=== PATIENT | female | born 1950 | race Caucasian/White ===

== ENCOUNTER 2016-11-01 08:57 | Inpatient (IN) | payer MEDICARE, OTHER ==
[~2016-11-01] VITALS: Ht 170.2 cm; Wt 82.2 kg
[~2016-11-01 08:57] MED LIST: AMLO5TAB2 PO; CELE400C PO; CEPH500C PO; DICY10CA12 PO; DICY10CA26 PO; DULO30CA3 PO; ERGO400C PO; EST1.25T PO; ESTR0.5T PO; EZET10TA23 PO; FENO145T20 PO; GABA-486 PO; HYDR-2890 PO; HYDR1CAP2 PO; HYDR25TA4 PO; HYDR50TA3 PO; HYOS0.1217 PO; HYOS0.3710 PO; MELO-195 PO; METR500T PO; NAPR-243 PO; NEBI5TAB8 PO; NITR-65 PO; NITR100C PO; NITR50CA4 PO; ONDA-42 SL; ONDAN4ODT PO; ORPH100T PO; POTA-51 PO; POTA10CA43 PO; POTA75TA PO; POTASSIUM; PRD20T PO; PRM25T PO; ROPI0.5T2 PO; SIMV20TA3 PO; SULF-222 PO; SULF1TAB38 PO
--- OUTSIDE RECORDS SUMMARY | 2016-11-01 09:02 | XMS REPORT | Continuity of Care Document ---
Author Author [facility] Organization [facility] Address Unknown Phone Unavailable Allergies Active Description Code Type Severity Reaction Onset Reported/Identified Relationship to Patient Clinical Status Yes codeine [id number] Drug Allergy Unknown N/A 10/27/2005 Yes Sulfa (Sulfonamide Antibiotics) [id number] Drug Allergy Unknown NAUSEA BOWEL GA 01/11/2014 Yes No Known Drug Allergies [id number] Drug Allergy Unknown N/ A 03/20/2015 Medications Problems Date Dx Coded Attending Type Code Diagnosis Diagnosed By 09/09/2014 ADITYA PERLA MD Ot 721.3 09/09/2014 ADITYA PERLA MD Ot 729.1 09/09/2014 ADITYA PERLA MD Ot V58.69 10/03/2014 LINDA PRICE MD Ot 401.9 10/03/2014 LINDA PRICE MD Ot 562.11 10/03/2014 LINDA PRICE MD Ot 789.00 10/03/2014 LINDA PRICE MD Ot V58.69 10/23/2014 LEANN SANTIAGO, SHYAM Ortiz Ot 401.9 10/23/2014 LEANN SANTIAGO, SHYAM Ortiz Ot 787.91 10/23/2014 LEANN SANTIAGO, SHYAM Ortiz Ot 789.00 10/23/2014 LEANN SANTIAGO, SHYAM Ortiz Ot 790.6 10/28/2014 LEANN SANTIAGO, SHYAM Ortiz Ot 787.91 10/28/2014 LEANN SANTIAGO, SHYAM Ortiz Ot 789.00 11/04/2014 ROHAN JOYA MD Ot 401.9 11/04/2014 ROHAN JOYA MD Ot 723.0 11/04/2014 ROHAN JOYA MD Ot 723.1 11/04/2014 ROHAN JOYA MD Ot 785.1 11/04/2014 ROHAN JOYA MD Ot 786.09 11/04/2014 ROHAN JOYA MD Ot 786.50 11/07/2014 TOAN SANTIAGO, ROHAN Yao Ot 401.9 11/07/2014 TOAN SANTIAGO, ROHAN Yao Ot 723.0 11/07/2014 TOAN SANTIAGO, ROHAN Yao Ot 785.1 11/07/2014 TOAN SANTIAGO, ROHAN Yao Ot 786.09 11/07/2014 TOAN SANTIAGO, ROHAN Yao Ot 786.50 11/22/2014 Ot 401.9 11/22/2014 Ot 821.01 11/22/2014 Ot 847.0 11/22/2014 Ot 924.8 11/22/2014 Ot 959.6 11/22/2014 Ot E000.8 11/22/2014 Ot E849.0 11/22/2014 Ot E888.9 11/22/2014 Ot V58.69 01/10/2015 LEANN SANTIAGO, SHYAM Ortiz Ot 787.91 01/10/2015 LEANN SANTIAGO, SHYAM Ortiz Ot 789.00 03/21/2015 LEANN SANTIAGO, SHYAM Ortiz Ot 272.4 03/21/2015 LEANN SANTIAGO, SHYAM Ortiz Ot 401.9 03/21/2015 LEANN SANTIAGO, SHYAM Ortiz Ot 458.9 03/21/2015 LEANN SANTIAGO, SHYAM Ortiz Ot 584.9 03/21/2015 LEANN SANTIAGO, SHYAM Ortiz Ot V43.64 06/23/2016 JD SCOTT Ot Z12.31 ENCNTR SCREEN MAMMOGRAM FOR MALIGNANT NE 06/24/2016 JD SCOTT FILM INSPECTOR Ot Z12.31 ENCNTR SCREEN MAMMOGRAM FOR MALIGNANT NE 06/29/2016 JD SCOTT FILM INSPECTOR Ot Z12.31 ENCNTR SCREEN MAMMOGRAM FOR MALIGNANT NE 07/08/2016 JD SCOTT FILM INSPECTOR Ot Z12.31 ENCNTR SCREEN MAMMOGRAM FOR MALIGNANT NE Procedures Results Encounters ACCT No. Visit Date/Time Discharge Status Pt. Type Provider Facility Loc./Unit Complaint [id number] 03/20/2015 14:44:00 2014 16:32:00 DIS Inpatient SHYAM NORIEGA MD [facility] 4TH [id number] 11/05/2014 10:34:00 2014 23:59:59 CLS Outpatient ROHAN JOYA MD [facility] [id number] 11/01/2014 14:10:00 2014 23:59:59 CLS Outpatient TOAN SANTIAGO, ROHAN Yao [facility] CARD [id number] 10/03/2014 10:12:00 2014 12:55:00 DIS Emergency ALBERT SANTIAGO, LINDA Finley [facility] ER [id number] 09/26/2014 12:48:00 2014 23:59:59 CLS Outpatient SHYAM NORIEGA MD [facility] RAD [id number] 09/25/2014 12:37:00 2014 23:59:59 CLS Outpatient SHYAM NORIEGA MD [facility] LAB [id number] 09/09/2014 13:09:00 2013 14:17:00 DIS Outpatient MINDA SANTIAGO, ADITYA Yao [facility] CARD [id number] 07/26/2014 08:23:00 2013 09:27:00 DIS Outpatient [id number] 06/14/2014 09:30:00 2013 23:59:59 CLS Outpatient [id number] 05/03/2014 07:30:00 2013 08:17:00 DIS Outpatient [id number] 03/18/2014 12:52:00 2013 14:24:00 DIS Outpatient [id number] 03/07/2014 18:36:00 2013 21:07:00 DIS Emergency [id number] 01/11/2014 11:23:00 2013 23:59:59 CLS Outpatient [id number] 12/17/2013 10:41:00 2013 11:12:00 DIS Outpatient [id number] 01/07/2014 12:26:00 2013 23:59:59 CLS Outpatient [id number] 12/24/2013 12:08:00 2013 23:59:59 CLS Outpatient [id number] 11/16/2013 08:13:00 2013 09:04:00 DIS Outpatient [id number] 11/01/2013 19:13:00 2013 21:19:00 DIS Emergency [id number] 07/20/2013 08:47:00 2012 23:59:59 CLS Outpatient [id number] 06/11/2013 08:28:00 2012 23:59:59 CLS Outpatient [id number] 06/11/2013 08:21:00 2012 23:59:59 CLS Outpatient [id number] 06/23/2016 08:40:00 ACT Outpatient JD SCOTT [facility] RAD SCREENING [id number] 01/03/2015 20:45:00 Document Registration
[2016-11-01 09:51] LABS: BASOPHILS % (AUTO) 1 % (0-10); EOSINOPHILS # (AUTO) 0.2 10^3/uL (0.0-0.3); EOSINOPHILS % (AUTO) 4 % (0-10); LYMPHOCYTES # (AUTO) 0.7 X 10^3 (1.0-4.0); LYMPHOCYTES % (AUTO) 18 % (12-44); MEAN CORPUSCULAR HEMOGLOBIN 33 PG (25-34); MEAN CORPUSCULAR HGB CONC 33 G/DL (32-36); MEAN CORPUSCULAR VOLUME 100 FL (80-99); MEAN PLATELET VOLUME 9.6 FL (7.4-10.4); MONOCYTES # (AUTO) 0.8 X 10^3 (0.0-1.0); MONOCYTES % (AUTO) 21 % (0-12); NEUTROPHILS # (AUTO) 2.1 X 10^3 (1.8-7.8); NEUTROPHILS % (AUTO) 56 % (42-75); PLATELET COUNT 350 10^3/uL (130-400); RED BLOOD COUNT 3.83 10^6/uL (4.35-5.85); RED CELL DISTRIBUTION WIDTH 13.7 % (10.0-14.5); WHITE BLOOD COUNT 3.8 10^3/uL (4.3-11.0)
[2016-11-01 10:12] LABS: ALANINE AMINOTRANSFERASE 24 U/L (0-55); ALBUMIN 3.8 G/DL (3.2-4.5); ANION GAP 10 MMOL/L (5-14); ASPARTATE AMINO TRANSFERASE 37 U/L (5-34); BILIRUBIN,TOTAL 0.5 MG/DL (0.1-1.0); BLOOD UREA NITROGEN 15 MG/DL (7-18); BUN/CREATININE RATIO 18; CALCIUM 9.4 MG/DL (8.5-10.1); CARBON DIOXIDE 25 MMOL/L (21-32); CHLORIDE 104 MMOL/L (98-107); CREATININE SERUM 0.85 MG/DL (0.60-1.30); GFR ESTIMATED > 60; GLUCOSE 94 MG/DL (70-105); POTASSIUM 4.1 MMOL/L (3.6-5.0); SODIUM 139 MMOL/L (135-145)
[2016-11-01 10:35] LABS: BAND NEUTROPHILS 2 %; BASOPHILS % (MANUAL) 1 %; EOSINOPHILS % (MANUAL) 5 %; LYMPHOCYTES % (MANUAL) 16 %; NEUTROPHILS % (MANUAL) 61 %
--- NOTE | 2016-11-01 10:41 | Diagnostic Imaging Report ---
PA and lateral views of the chest. INDICATION: Shortness of breath. COMPARISON: 11/22/2014. FINDINGS: There are bilateral central predominantly interstitial infiltrates worse on the left side. The heart size is normal. No effusion or pneumothorax. The mediastinum and rowdy appear unremarkable. IMPRESSION: Bilateral interstitial infiltrates may relate to atypical or viral pneumonia. Correlate clinically. Dictated by: Dictated on workstation # [id number]
[2016-11-01] MEDS ORDERED: LEVOFLOXACIN 750 MG/150 ML IV 150 ML IV ONE (11:15)
--- NOTE | 2016-11-01 11:19 | ED General ---
General Chief Complaint: Respiratory Problems Stated Complaint: LETHARGIC, TIERS EASILY, SOA Nursing Triage Note: PT C/O LETHARGY AND SOA SINCE TUESDAY. PT DENIES FEVER OR COUGH. Nursing Sepsis Screen: No Definite Risk Source of Information: Patient Exam Limitations: No Limitations History of Present Illness Time Seen by Provider: 09:03 Initial Comments This 66-year-old woman presents to the emergency room with complaints of dyspnea on exertion and fatigue. She was recently treated for cough with Cefdinir by Dr. Otero. She has also been recently started on Macrobid by Dr. Crisostomo's office. The Cefdinir course was completed on October 29 and she has been feeling worse since then. She is noted to be hypoxic with oxygen saturations in the upper 80s upon arrival. Patient is immunocompromised on methotrexate therapy for rheumatoid arthritis. She has had night sweats and chills in recent days but no overt fever. Allergies and Home Medications Allergies Coded Allergies: No Known Drug Allergies (Unverified , 03/20/15) Home Medications Amlodipine Besylate 5 Mg Tablet 5 MG PO DAILY (Reported) Cholecalciferol (Vitamin D3) 2,000 Unit Capsule 2,000 UNIT PO HS (Reported) Diclofenac Sodium 75 Mg Tablet.dr 75 MG PO BID (Reported) Duloxetine Hcl 30 Mg Cap 30 MG PO DAILY (Reported) Estradiol 0.5 Mg Tablet 0.5 MG PO DAILY (Reported) Ezetimibe 10 Mg Tablet 10 MG PO DAILY (Reported) Fenofibrate Nanocrystallized 145 Mg Tablet 145 MG PO DAILY (Reported) Folic Acid 1 Mg Tablet 1 MG PO DAILY (Reported) Gabapentin 100 Mg Capsule 200 MG PO DAILY (Reported) TAKES 2 (100MG) CAPSULES Gabapentin 100 Mg Capsule 300 MG PO HS (Reported) TAKES 3 (100MG) CAPSULES Hydrocodone Bit/Acetaminophen 1 Each Tablet 1 TAB PO BID (Reported) Hydrocodone/Acetaminophen 1 Each Tablet 1 TAB PO Q6H PRN PRN MODERATE PAIN ( Reported) Hyoscyamine Sulfate 0.375 Mg Tab.er.12h 0.375 MG PO BID (Reported) Infliximab 100 Mg Soln 300 MG IV EVERY 8 WEEKS (Reported) Methotrexate Sodium 2.5 Mg Tablet 15 MG PO We (Reported) TAKES 6 (2.5MG) TABLETS Nitrofurantoin Macrocrystal 50 Mg Capsule 50 MG PO HS (Reported) Olmesartan Medoxomil 40 Mg Tablet 40 MG PO DAILY (Reported) Omeprazole 20 Mg Capsule.dr 20 MG PO BID (Reported) Ropinirole Hcl 0.5 Mg Tablet 0.5 MG PO HS (Reported) Constitutional: see HPI EENTM: no symptoms reported Respiratory: see HPI Cardiovascular: no symptoms reported Gastrointestinal: no symptoms reported Genitourinary: no symptoms reported Musculoskeletal: no symptoms reported Skin: no symptoms reported Psychiatric/Neurological: No Symptoms Reported Hematologic/Lymphatic: No Symptoms Reported Immunological/Allergic: see HPI Past Ezdtmrd-Otgffe-Xlwszx Hx Patient Social History Alcohol Use: Occasionally Uses Recreational Drug Use: No Smoking Status: Never a Smoker 2nd Hand Smoke Exposure: No Recent Foreign Travel: No Contact w/Someone Who Travel: No Recent Infectious Disease Expo: No Recent Hopitalizations: No Immunizations Up To Date Tetanus Booster (TDap): Unknown Date of Pneumonia Vaccine: Nov 02, 2012 Date of Influenza Vaccine: Jun 19, 2014 Seasonal Allergies Seasonal Allergies: No Surgeries HX Surgeries: Yes (R TOTAL HIP L AND R SURGERY ON KNEES) Surgeries: Breast, Gallbladder, Hysterectomy, Joint Replacement, Orthopedic, Renal Respiratory Hx Respiratory Disorders: No Cardiovascular Hx Cardiac Disorders: Yes Cardiac Disorders: High Cholesterol, Hypertension Neurological Hx Neurological Disorders: No 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 System Hx 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 Disorders: No Sexually Transmitted Disease: No HIV/AIDS: No Female 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 Disorders: 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 Genitourinary Hx Genitourinary Disorders: Yes Genitourinary Disorders: Kidney Stones, UTI-Chronic Gastrointestinal Hx Gastrointestinal Disorders: Yes Gastrointestinal Disorders: Diverticulosis Musculoskeletal Hx Musculoskeletal Disorders: Yes (march 03 brucitis sack removed from left knee, right femur repair) Musculoskeletal Disorders: Arthritis, Rheumatoid Arthritis Endocrine Hx Endocrine Disorders: No HEENT HX ENT Disorders: No Loss of Vision: Denies Hearing Impairment: Denies Cancer Hx Cancer: No Psychosocial Hx Psychiatric Problems: No Integumentary HX Skin/Integumentary Disorder: No Blood Transfusions Hx Blood Disorders: No Adverse Reaction to a Blood Tr: No Family Medical History Family Medial History: Alzheimer's disease G8 BROTHER G8 SISTER Arthritis G8 BROTHER Cataracts G8 SISTER Dementia G8 SISTER Fibrocystic disease of breast G8 SISTER Hypertension 19 FATHER 19 MOTHER G8 BROTHER G8 BROTHER G8 SISTER G8 SISTER Kidney disease G8 BROTHER No Family History of: AIDS Abdominal aortic aneurysm [place]'s disease Alcoholism Aphasia Asthma Cancer of mouth Cardiovascular disease Colon cancer Completed stroke Congenital disease Congenital heart disease Coronary thrombosis Cystic fibrosis Diabetes mellitus Drug abuse Dysphasia Gastroenteritis Glaucoma Headache disorder Hypercholesterolemia Infertility Myocardial infarction Neoplasm Not obtainable due to adoption Osteoporosis Parkinson's disease Prostate cancer Psychosocial problem Respiratory disorder Seizure disorder Severe allergy Thyroid disease Tuberculosis Visual disorder Physical Exam Vital Signs Vital Sign - Last 12Hours 11/01/16 11/01/16 09:44 11:44 Temp 99.7 Pulse 72 Resp 20 B/P 127/69 Pulse Ox 89 O2 Delivery Room Air O2 Flow Rate 2 Capillary Refill : Less Than 3 Seconds General Appearance: No Apparent Distress WD/WN HEENT: PERRL/EOMI Normal ENT Inspection Neck: Normal Inspection Respiratory: No Accessory Muscle Use No Respiratory Distress Crackles ( bilateral, left greater than right) Cardiovascular: Regular Rate, Rhythm No Edema No Murmur Gastrointestinal: Normal Bowel Sounds Non Tender Soft Extremity: Normal Inspection No Pedal Edema Neurologic/Psychiatric: Alert Oriented x3 No Motor/Sensory Deficits Normal Mood/Affect remote sensing technician II-XII Norm as Tested Skin: Normal Color Warm/Dry Progress/Results/Core Measures Results/Orders Lab Results Laboratory Tests Test 11/01/16 09:40 11/01/16 11:19 Range/Units Alanine Aminotransferase (ALT/SGPT) 24 0-55 U/L Albumin 3.8 3.2-4.5 G/DL Alkaline Phosphatase 62 40-136 U/L Anion Gap 10 5-14 MMOL/L Aspartate Amino Transf (AST/SGOT) 37 H 5-34 U/L BUN/Creatinine Ratio 18 Band Neutrophils 2 % Basophils # (Auto) 0.0 0.0-0.1 10^3/uL Basophils % (Manual) 1 % Basophils (%) (Auto) 1 0-10 % Blood Urea Nitrogen 15 7-18 MG/DL Calcium Level 9.4 8.5-10.1 MG/DL Carbon Dioxide Level 25 21-32 MMOL/L Chloride Level 104 98-107 MMOL/L Creatinine 0.85 0.60-1.30 MG/DL Eosinophils # (Auto) 0.2 0.0-0.3 10^3/uL Eosinophils % (Manual) 5 % Eosinophils (%) (Auto) 4 0-10 % Estimat Glomerular Filtration Rate > 60 Glucose Level 94 70-105 MG/DL Hematocrit 38 35-52 % Hemoglobin 12.6 11.5-16.0 G/DL Lymphocytes # (Auto) 0.7 L 1.0-4.0 X 10^3 Lymphocytes % (Manual) 16 % Lymphocytes (%) (Auto) 18 12-44 % Mean Corpuscular Hemoglobin 33 25-34 PG Mean Corpuscular Hemoglobin Concent 33 32-36 G/DL Mean Corpuscular Volume 100 H 80-99 FL Mean Platelet Volume 9.6 7.4-10.4 FL Monocytes # (Auto) 0.8 0.0-1.0 X 10^3 Monocytes % (Manual) 15 % Monocytes (%) (Auto) 21 H 0-12 % Neutrophils # (Auto) 2.1 1.8-7.8 X 10^3 Neutrophils % (Manual) 61 % Neutrophils (%) (Auto) 56 42-75 % Platelet Count 350 130-400 10^3/uL Potassium Level 4.1 3.6-5.0 MMOL/L Red Blood Count 3.83 L 4.35-5.85 10^6/uL Red Cell Distribution Width 13.7 10.0-14.5 % Sodium Level 139 135-145 MMOL/L Total Bilirubin 0.5 0.1-1.0 MG/DL Total Protein 7.0 6.4-8.2 G/DL Toxic Granulation 1+ White Blood Count 3.8 L 4.3-11.0 10^3/uL Lactic Acid Level 0.9 0.5-2.0 MMOL/L Micro Results Microbiology 11/01/16 Influenza Types A,B Antigen (JOANN) - Final, Complete My Orders Orders-YANA COSME MD Cbc With Automated Diff (11/01/16 09:03) Comprehensive Metabolic Panel (11/01/16 09:03) Ua Culture If Indicated (11/01/16 09:03) Saline Lock/Iv-Start (11/01/16 09:03) Chest Pa/Lat (2 View) (11/01/16 09:03) Manual Differential (11/01/16 09:40) Influenza A And B Antigens (11/01/16 10:51) Blood Culture (11/01/16 11:04) Lactic Acid Analyzer (11/01/16 11:04) Levofloxacin 750 Mg/150 Ml Iv (Levaquin (11/01/16 11:15) Vital Signs/I&O Vital Sign - Last 12Hours 11/01/16 11/01/16 11/01/16 11/01/16 16:00 18:45 20:00 21:00 Temp 97.0 98.4 Pulse 75 92 Resp 16 20 B/P 125/58 140/65 Pulse Ox 93 86 93 93 O2 Delivery Nasal Cannula Nasal Cannula Nasal Cannula O2 Flow Rate 2.00 2.00 2.00 2.00 11/02/16 00:00 Temp 98.2 Pulse 96 Resp 20 B/P 129/69 Pulse Ox 91 O2 Delivery Nasal Cannula O2 Flow Rate 2.00 Blood Pressure Mean: 88 Progress Note : Time: 11:20 Progress Note Patient was found to have a bilateral pneumonia on chest x-ray. Given her hypoxia and immunocompromise status, admission was felt appropriate. This was discussed with Dr. Crisostomo who agrees. Because she has failed outpatient therapy on a cephalosporin and is immunocompromised, broad spectrum coverage for healthcare associated pneumonia was felt necessary. Patient did not quite meet criteria for sepsis. Levaquin was initiated in the emergency room after blood cultures were drawn. Diagnostic Imaging Diagonstic Imaging: Xray Plain Films/CT/US/NM/MRI: chest Comments Chest x-ray viewed by me and report reviewed. See report below: NAME: SENTHIL FRANCISCO I [facility] REC#: [id number] PT STATUS: REG ER : 1950 PHYSICIAN: YANA COSME MD ADMIT DATE: 11/01/16/ER Signed Date of Exam: 11/01/16 CHEST PA/LAT (2 VIEW) PA and lateral views of the chest. INDICATION: Shortness of breath. COMPARISON: 11/22/2014. FINDINGS: There are bilateral central predominantly interstitial infiltrates worse on the left side. The heart size is normal. No effusion or pneumothorax. The mediastinum and rowdy appear unremarkable. IMPRESSION: Bilateral interstitial infiltrates may relate to atypical or viral pneumonia. Correlate clinically. Dictated by: Dictated on workstation # [id number] Dict: 11/01/16 1038 Trans: 11/01/16 1111 LUCIA [id number] Interpreted by: HORTENCIA GUERRERO MD Electronically signed by:HROTENCIA GUERRERO MD 11/01/16 1113 Departure Impression Impression: Primary Impression: Pneumonia of both lower lobes Qualified Code: J18.9 - Pneumonia, unspecified organism Additional Impressions: Hypoxia Dyspnea on exertion Immunocompromised Disposition: ADMITTED INPATIENT Condition: Improved Decision to Admit Reason: Admit from ER (General) Decision to Admit/Date: Nov 01, 2016 Time/Decision to Admit Time: 11:00 Departure-Patient Inst. Referrals: SHYAM CRISOSTOMO MD (PCP/Family) Primary Care Physician YANA COSME MD Nov 01, 2016 11:19
[2016-11-01] MEDS ORDERED: ACETAMINOPHEN 500 MG TAB (TYLENOL) PO PRN (12:15)
[2016-11-01] MEDS ORDERED: VANCOMYCIN 1500 MG/NS 500 ML IVPB IV NR ×2 (13:00)
[2016-11-01] MEDS: CEFEPIME 2 GM/NS 50 ML IVPB IV SCH ×4 (13:05→23:40)
[2016-11-01] MEDS ORDERED: FLUT16SP22 NS (13:10)
[2016-11-01] MEDS ORDERED: FOLI1TAB24 PO (13:10)
[2016-11-01] MEDS ORDERED: OMEP20CA12 PO (13:10)
[2016-11-01] MEDS ORDERED: AMLO5TAB4 PO (13:10)
[2016-11-01] MEDS ORDERED: OLME40TA16 PO (13:10)
[2016-11-01] MEDS ORDERED: DICL75TA2 PO (13:20)
[2016-11-01] MEDS ORDERED: HYOS0.3710 PO (13:20)
[2016-11-01] MEDS ORDERED: METH2.5T PO (13:20)
[2016-11-01] MEDS ORDERED: CHOL20002 PO (13:20)
[2016-11-01] MEDS ORDERED: INFL100V IV (13:20)
[2016-11-01] MEDS ORDERED: HYDR-3820 PO (13:26)
[2016-11-01 16:00] VITALS: BP 125/58
--- NOTE | 2016-11-01 16:17 | History & Physicial ---
History of Present Illness History of Present Illness Reason for visit/HPI PT IS A 66 Y/O FEMALE WHO IS KNOWN TO ME FROM CLINIC. SHE PRESENTED TO THE HOSPITAL WITH WORSENING DYSPNEA - SHE HAD BEEN SEEN AT THE OFFICE, PRESCRIBED ANTIBIOTICS, AND INITIALLY IMPROVED. SHE THEN STARTED TO FEEL POORLY AGAIN OVER THE PAST FEW DAYS. Date of Admission Nov 01, 2016 at 11:08 I consulted on this patient on 11/01/16 16:17 Attending Physician Shyam Crisostomo MD Admitting Physician Shyam Crisostomo MD Consult Allergies and Home Medications Allergies Coded Allergies: No Known Drug Allergies (Unverified , 03/20/15) Home Medications Amlodipine Besylate 5 Mg Tablet 5 MG PO DAILY (Reported) Cholecalciferol (Vitamin D3) 2,000 Unit Capsule 2,000 UNIT PO HS (Reported) Diclofenac Sodium 75 Mg Tablet.dr 75 MG PO BID (Reported) Duloxetine Hcl 30 Mg Cap 30 MG PO DAILY (Reported) Estradiol 0.5 Mg Tablet 0.5 MG PO DAILY (Reported) Ezetimibe 10 Mg Tablet 10 MG PO DAILY (Reported) Fenofibrate Nanocrystallized 145 Mg Tablet 145 MG PO DAILY (Reported) Folic Acid 1 Mg Tablet 1 MG PO DAILY (Reported) Gabapentin 100 Mg Capsule 200 MG PO DAILY (Reported) TAKES 2 (100MG) CAPSULES Gabapentin 100 Mg Capsule 300 MG PO HS (Reported) TAKES 3 (100MG) CAPSULES Hydrocodone Bit/Acetaminophen 1 Each Tablet 1 TAB PO BID (Reported) Hydrocodone/Acetaminophen 1 Each Tablet 1 TAB PO Q6H PRN PRN MODERATE PAIN ( Reported) Hyoscyamine Sulfate 0.375 Mg Tab.er.12h 0.375 MG PO BID (Reported) Infliximab 100 Mg Soln 300 MG IV EVERY 8 WEEKS (Reported) Methotrexate Sodium 2.5 Mg Tablet 15 MG PO We (Reported) TAKES 6 (2.5MG) TABLETS Nitrofurantoin Macrocrystal 50 Mg Capsule 50 MG PO HS (Reported) Olmesartan Medoxomil 40 Mg Tablet 40 MG PO DAILY (Reported) Omeprazole 20 Mg Capsule.dr 20 MG PO BID (Reported) Ropinirole Hcl 0.5 Mg Tablet 0.5 MG PO HS (Reported) Past Cnmcliu-Dixjso-Rsqomu Hx Patient Social History Marrital Status: Living Status: LIVES AT HOME WITH SPOUSE 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) Alcohol Use: Occasionally Uses Recreational Drug Use: No Smoking Status: Never a Smoker 2nd Hand Smoke Exposure: No Physical Abuse Screen: No Sexual Abuse: No Recent Foreign Travel: No Contact w/other who traveled: No Recent Hopitalizations: No Recent Infectious Disease Expo: No Immunizations Up To Date Tetanus Booster (TDap): Unknown Date of Pneumonia Vaccine: Nov 02, 2012 Date of Influenza Vaccine: Jun 19, 2016 Seasonal Allergies Seasonal Allergies: No Surgeries HX Surgeries: Yes (R TOTAL HIP L AND R SURGERY ON KNEES) Surgeries: Breast, Gallbladder, Hysterectomy, Joint Replacement, Orthopedic, Renal Respiratory Hx Respiratory Disorders: No Cardiovascular Hx Cardiovascular Disorders: Yes Cardiac Disorders: High Cholesterol, Hypertension Neurological Hx Neurological Disorders: No 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 System Hx 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 Disorders: No Sexually Transmitted Disease: No HIV/AIDS: No Female 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 Disorders: Denies Genitourinary Hx Genitourinary Disorders: Yes Genitourinary Disorders: Kidney Stones, UTI-Chronic Gastrointestinal Hx Gastrointestinal Disorders: Yes Gastrointestinal Disorders: Diverticulosis Musculoskeletal Hx Musculoskeletal Disorders: Yes (march 03 brucitis sack removed from left knee, right femur repair) Musculoskeletal Disorders: Arthritis, Rheumatoid Arthritis Endocrine Hx Endocrine Disorders: No HEENT HX ENT Disorders: No Loss of Vision: Denies Hearing Impairment: Denies Cancer Hx Cancer: No Psychosocial Hx Psychiatric Problems: No Integumentary HX Skin/Integumentary Disorder: No Blood Transfusions Hx Blood Disorders: No Adverse Reaction to a Blood Tr: No Reviewed Nursing Assessment Reviewed/Agree w Nursing PMH: Yes Family Medical History Significant Family History: Heart Disease, Other Conditions/Hx (DEMENTIA) Family Hx: Alzheimer's disease G8 BROTHER G8 SISTER Arthritis G8 BROTHER Cataracts G8 SISTER Dementia G8 SISTER Fibrocystic disease of breast G8 SISTER Hypertension 19 FATHER 19 MOTHER G8 BROTHER G8 BROTHER G8 SISTER G8 SISTER Kidney disease G8 BROTHER No Family History of: AIDS Abdominal aortic aneurysm [place]'s disease Alcoholism Aphasia Asthma Cancer of mouth Cardiovascular disease Colon cancer Completed stroke Congenital disease Congenital heart disease Coronary thrombosis Cystic fibrosis Diabetes mellitus Drug abuse Dysphasia Gastroenteritis Glaucoma Headache disorder Hypercholesterolemia Infertility Myocardial infarction Neoplasm Not obtainable due to adoption Osteoporosis Parkinson's disease Prostate cancer Psychosocial problem Respiratory disorder Seizure disorder Severe allergy Thyroid disease Tuberculosis Visual disorder Constitutional: No fever, malaise weakness EENTM: No hoarseness, No mouth pain, No throat pain Respiratory: cough dyspnea on exertion short of breath Cardiovascular: no symptoms reported Gastrointestinal: No abdominal pain, No constipation, No diarrhea Genitourinary: no symptoms reported Musculoskeletal: joint pain Skin: No dryness, No lesions Psychiatric/Neurological: Denies Anxiety, Denies Depressed All Other Systems Reviewed Negative Unless Noted: Yes Physical Exam Vital Signs Vital Sign - Last 12Hours 11/01/16 11/01/16 09:44 11:44 Temp 99.7 Pulse 72 Resp 20 B/P 127/69 Pulse Ox 89 O2 Delivery Room Air O2 Flow Rate 2 Capillary Refill : Less Than 3 Seconds General Appearance: No Apparent Distress WD/WN Eyes: Bilateral Eye EOMI, Bilateral Eye Normal Inspection, Bilateral Eye PERRL HEENT: PERRL/EOMI Pharynx Normal Neck: Full Range of Motion Supple Respiratory: Chest Non Tender Crackles (MID LUNG TO BASES BILATERALLY) Decreased Breath Sounds Cardiovascular: Regular Rate, Rhythm Gastrointestinal: Normal Bowel Sounds No Organomegaly No Pulsatile Mass Non Tender Soft Rectal: Deferred Back: Normal Inspection Extremity: Normal Capillary Refill No Pedal Edema Neurologic/Psychiatric: Alert Oriented x3 No Motor/Sensory Deficits Normal Mood/Affect Skin: Normal Color Warm/Dry Lymphatic: No Adenopathy Assessment/Plan Assessment and Plan PNEUMONIA LEUKOPENIA COUGH WEAKNESS PNEUMONIA - STARTED ON PNEUMONIA PROTOCOL, CONTINUE WITH TREATMENT - MONITOR SYMPTOMS, AGGRESSIVE PULMONARY TOILET LEUKOPENIA - MONITOR CBC COUGH - COUGH SUPPRESSANTS WEAKNESS - ENCOURAGE AMBULATION IN [place] Admission Diagnosis PNEUMONIA LEUKOPENIA COUGH WEAKNESS Clinical Quality Measures DVT/VTE Risk/Contraindication: Risk Factor Score Per Nursin RFS Level Per Nursing on Admit: 2=Moderate SHYAM CRISOSTOMO MD Nov 01, 2016 16:17
[2016-11-01] MEDS ORDERED: HYDROcodone/APAP 10 MG/325 MG (LORTAB) TAB PO PRN (16:30)
[2016-11-01] MEDS: HYDROcodone/APAP 10 MG/325 MG (LORTAB) TAB PO SCH (17:30)
[2016-11-01] MEDS: methylPREDNISolone 40 MG/ML (Solu-MEDROL) VIAL IV SCH ×2 (17:43→23:40)
[2016-11-01] MEDS: HYOSCYAMINE 0.375 MG (LEVBID) TAB PO SCH (17:43)
[2016-11-01 20:00] VITALS: BP 140/65
[2016-11-01] MEDS: rOPINIRole 0.25 MG (REQUIP) TAB PO SCH (20:36)
[2016-11-01] MEDS: PANTOPRAZOLE 20 MG TABLET (PROTONIX) PO SCH (20:37)
[2016-11-01] MEDS: GABAPENTIN 100 MG (NEURONTIN) CAP PO SCH (20:37)
[2016-11-01] MEDS: VITAMIN D3 1,000 UNITS (CHOLECALCIFEROL) TABLET PO SCH (20:37)
[2016-11-01] MEDS ORDERED: OMEPRAZOLE 20 MG (PriLOSEC) CAP NON-FORMULARY PO SCH (21:00)
[2016-11-01] MEDS ORDERED: NON-FORMULARY MEDICATION 1 EA EA (Diclofenac Sodium 75 MG) PO SCH (21:00)
[2016-11-01] MEDS ORDERED: NON-FORMULARY MEDICATION 1 EA EA (Cholecalciferol (Vitamin D3) (Vitamin D-3) 2,000 UNIT) PO SCH (21:00)
[2016-11-02] VITALS: BP 129/69
[2016-11-02] MEDS: VANCOMYCIN 1250 MG/NS 250 ML IVPB IV SCH ×4 (00:30→13:24)
[2016-11-02 04:00] VITALS: BP 129/80
[2016-11-02 04:53] LABS: MEAN PLATELET VOLUME 9.6 FL (7.4-10.4); RED BLOOD COUNT 3.8 10^6/uL (4.35-5.85); RED CELL DISTRIBUTION WIDTH 13.6 % (10.0-14.5); WHITE BLOOD COUNT 2.6 10^3/uL (4.3-11.0)
[2016-11-02 05:11] LABS: ALANINE AMINOTRANSFERASE 22 U/L (0-55); ALBUMIN 3.8 G/DL (3.2-4.5); ANION GAP 12 MMOL/L (5-14); ASPARTATE AMINO TRANSFERASE 24 U/L (5-34); BILIRUBIN,TOTAL 0.5 MG/DL (0.1-1.0); BLOOD UREA NITROGEN 15 MG/DL (7-18); BUN/CREATININE RATIO 20; CALCIUM 9.5 MG/DL (8.5-10.1); CARBON DIOXIDE 21 MMOL/L (21-32); CHLORIDE 103 MMOL/L (98-107); CREATININE SERUM 0.76 MG/DL (0.60-1.30); GFR ESTIMATED > 60; GLUCOSE 147 MG/DL (70-105); POTASSIUM 4.1 MMOL/L (3.6-5.0); SODIUM 136 MMOL/L (135-145)
[2016-11-02] MEDS: ETODOLAC 300 MG (LODINE) CAP PO SCH ×2 (06:04→17:19)
[2016-11-02] MEDS: methylPREDNISolone 40 MG/ML (Solu-MEDROL) VIAL IV SCH ×2 (06:04→12:50)
[2016-11-02] MEDS: HYOSCYAMINE 0.375 MG (LEVBID) TAB PO SCH ×2 (06:04→17:19)
[2016-11-02] MEDS: HYDROcodone/APAP 10 MG/325 MG (LORTAB) TAB PO SCH ×2 (06:05→17:19)
[2016-11-02] MEDS: PANTOPRAZOLE 20 MG TABLET (PROTONIX) PO SCH ×2 (06:06→20:17)
[2016-11-02] MEDS: RT-ADVAIR HFA 115/21 MCG PER PUFF IH SCH ×2 (06:53→20:22)
[2016-11-02 08:00] VITALS: BP 124/59
[2016-11-02] MEDS: FENOFIBRATE 134 MG (LOFIBRA) CAPSULE PO SCH (08:52)
[2016-11-02] MEDS: ESTRADIOL 1 MG TAB (ESTRACE) PO SCH (08:52)
[2016-11-02] MEDS: GABAPENTIN 100 MG (NEURONTIN) CAP PO SCH ×2 (08:53→20:16)
[2016-11-02] MEDS: OLMESARTAN 20 MG (BENICAR) TABLET PO SCH (08:53)
[2016-11-02] MEDS: eZETimibe 10 MG (ZETIA) TABLET PO SCH (08:53)
[2016-11-02] MEDS: FOLIC ACID 1 MG TAB PO SCH (08:53)
[2016-11-02] MEDS: DULoxetine 30 MG (CYMBALTA) CAP PO SCH (08:53)
[2016-11-02] MEDS: amLODIPine 5 MG (NORVASC) TAB PO SCH (08:54)
[2016-11-02] MEDS ORDERED: NON-FORMULARY MEDICATION 1 EA EA (Fenofibrate Nanocrystallized (Fenofibrate) 145 MG) PO SCH (09:00)
[2016-11-02] MEDS ORDERED: ESTRADIOL 0.5 MG PO SCH (09:00)
[2016-11-02] MEDS ORDERED: NON-FORMULARY MEDICATION 1 EA EA (Olmesartan Medoxomil (Benicar) 40 MG) PO SCH (09:00)
--- NOTE | 2016-11-02 09:25 | Progress Note (SOAP) ---
Subjective Subjective/Events-last exam PT VERY SHORT OF BREATH, FEELS A LITTLE BETTER TODAY- BUT STILL SHORT OF BREATH. SHE DENIES CHEST PAIN. Review of Systems General: Fatigue Malaise HEENT: No Head Aches Pulmonary: Dyspnea Cough Cardiovascular: No: Chest Pain Gastrointestinal: No: Abdominal Pain, Nausea Genitourinary: No Dysuria Neurological: : WeaknessNo: Confusion Objective Exam Vital Signs Date Time Temp Pulse Resp B/P Pulse Ox O2 Delivery O2 Flow Rate FiO2 11/02/16 09:00 Nasal Cannula 3.00 11/02/16 06:53 92 3.00 11/02/16 04:00 97.2 89 20 129/80 92 Nasal Cannula 2.00 11/02/16 00:00 98.2 96 20 129/69 91 Nasal Cannula 2.00 11/01/16 21:00 93 Nasal Cannula 2.00 11/01/16 20:00 98.4 92 20 140/65 93 Nasal Cannula 2.00 11/01/16 18:45 86 2.00 11/01/16 16:00 97.0 75 16 125/58 93 Nasal Cannula 2.00 11/01/16 12:00 97 Nasal Cannula 2.00 11/01/16 11:44 99.7 71 18 97 2 11/01/16 09:44 99.7 72 20 127/69 89 Room Air I & O 11/02/16 07:00 Intake Total 2080 ml Output Total 2200 ml Balance -120 ml Capillary Refill : Less Than 3 SecondsLess Than 3 Seconds General Appearance: No Apparent Distress WD/WN HEENT: PERRL/EOMI Neck: Full Range of Motion Respiratory: Chest Non Tender Crackles Decreased Breath Sounds Cardiovascular: Regular Rate, Rhythm Gastrointestinal: normal bowel sounds non tender soft no organomegaly no pulsatile mass Extremity: Normal Capillary Refill No Calf Tenderness No Pedal Edema Neurologic/Psychiatric: Alert Oriented x3 No Motor/Sensory Deficits Normal Mood/Affect Skin: Warm/Dry Lymphatic: No Adenopathy Results Lab Laboratory Tests 11/01/16 09:40: Alanine Aminotransferase (ALT/SGPT) 24, Albumin 3.8, Alkaline Phosphatase 62, Anion Gap 10, Aspartate Amino Transf (AST/SGOT) 37H, BUN/Creatinine Ratio 18, Band Neutrophils 2, Basophils # (Auto) 0.0, Basophils % (Manual) 1, Basophils (% ) (Auto) 1, Blood Urea Nitrogen 15, Calcium Level 9.4, Carbon Dioxide Level 25, Chloride Level 104, Creatinine 0.85, Eosinophils # (Auto) 0.2, Eosinophils % ( Manual) 5, Eosinophils (%) (Auto) 4, Estimat Glomerular Filtration Rate > 60, Glucose Level 94, Hematocrit 38, Hemoglobin 12.6, Lymphocytes # (Auto) 0.7L, Lymphocytes % (Manual) 16, Lymphocytes (%) (Auto) 18, Mean Corpuscular Hemoglobin 33, Mean Corpuscular Hemoglobin Concent 33, Mean Corpuscular Volume 100H, Mean Platelet Volume 9.6, Monocytes # (Auto) 0.8, Monocytes % (Manual) 15 , Monocytes (%) (Auto) 21H, Neutrophils # (Auto) 2.1, Neutrophils % (Manual) 61 , Neutrophils (%) (Auto) 56, Platelet Count 350, Potassium Level 4.1, Red Blood Count 3.83L, Red Cell Distribution Width 13.7, Sodium Level 139, Total Bilirubin 0.5, Total Protein 7.0, Toxic Granulation 1+, White Blood Count 3.8L 11/01/16 11:19: Lactic Acid Level 0.9 11/02/16 04:06: Alanine Aminotransferase (ALT/SGPT) 22, Albumin 3.8, Alkaline Phosphatase 61, Anion Gap 12, Aspartate Amino Transf (AST/SGOT) 24, BUN/Creatinine Ratio 20, Blood Urea Nitrogen 15, Calcium Level 9.5, Carbon Dioxide Level 21, Chloride Level 103, Creatinine 0.76, Estimat Glomerular Filtration Rate > 60, Glucose Level 147H, Hematocrit 38, Hemoglobin 12.4, Mean Corpuscular Hemoglobin 33, Mean Corpuscular Hemoglobin Concent 33, Mean Corpuscular Volume 99, Mean Platelet Volume 9.6, Platelet Count 385, Potassium Level 4.1, Red Blood Count 3.80L, Red Cell Distribution Width 13.6, Sodium Level 136, Total Bilirubin 0.5, Total Protein 7.0, White Blood Count 2.6L Microbiology 11/01/16 Influenza Types A,B Antigen (JOANN) - Final, Complete Assessment/Plan Assessment/Plan Assess & Plan/Chief Complaint PNEUMONIA LEUKOPENIA COUGH WEAKNESS PNEUMONIA - STARTED ON PNEUMONIA PROTOCOL, CONTINUE WITH TREATMENT - SLIGHTLY IMPROVED COMPARED TO ADMISSION - MONITOR SYMPTOMS, AGGRESSIVE PULMONARY TOILET LEUKOPENIA - MONITOR CBC COUGH - COUGH SUPPRESSANTS WEAKNESS - ENCOURAGE AMBULATION IN [place] Diagnosis/Problems: Clinical Quality Measures DVT/VTE Risk/Contraindication: Risk Factor Score Per Nursin RFS Level Per Nursing on Admit: 2=Moderate SHYAM NORIEGA MD Nov 02, 2016 09:25
--- NOTE | 2016-11-02 10:13 | Diagnostic Imaging Report ---
EXAMINATION: PA and lateral views of the chest. INDICATION: Shortness of breath. COMPARISON: 11/01/2016. FINDINGS: Bilateral interstitial infiltrates are again noted, slightly improved compared to the prior exam. The heart size is borderline enlarged. No effusion or pneumothorax. The mediastinum and rowdy appear unremarkable. Surgical clips in the upper right abdomen are seen. IMPRESSION: Improving interstitial infiltrates. Dictated by: Dictated on workstation # [id number]
[2016-11-02] MEDS: LEVOFLOXACIN 750 MG/D5W 150 ML PRE-MIX IV SCH (11:16)
[2016-11-02 12:00] VITALS: BP 151/70
[2016-11-02] MEDS ORDERED: TROUGH ORDER-PHARMACY XX NR (12:00)
[2016-11-02] MEDS: CEFEPIME 2 GM/NS 50 ML IVPB IV SCH ×2 (12:50)
[2016-11-02 16:00] VITALS: BP 124/60
[2016-11-02 20:00] VITALS: BP 123/58
[2016-11-02] MEDS: rOPINIRole 0.25 MG (REQUIP) TAB PO SCH (20:16)
[2016-11-02] MEDS: VITAMIN D3 1,000 UNITS (CHOLECALCIFEROL) TABLET PO SCH (20:17)
[2016-11-03] VITALS: BP 116/56
[2016-11-03] MEDS: CEFEPIME 2 GM/NS 50 ML IVPB IV SCH ×4 (00:07→12:39)
[2016-11-03] MEDS: VANCOMYCIN 1250 MG/NS 250 ML IVPB IV SCH ×4 (00:42→13:11)
[2016-11-03 04:00] VITALS: BP 106/53
[2016-11-03 06:05] LABS: MEAN PLATELET VOLUME 9.4 FL (7.4-10.4); RED BLOOD COUNT 3.67 10^6/uL (4.35-5.85); RED CELL DISTRIBUTION WIDTH 13.9 % (10.0-14.5); WHITE BLOOD COUNT 10.4 10^3/uL (4.3-11.0)
[2016-11-03] MEDS: HYDROcodone/APAP 10 MG/325 MG (LORTAB) TAB PO SCH ×2 (06:11→18:03)
[2016-11-03] MEDS: HYOSCYAMINE 0.375 MG (LEVBID) TAB PO SCH ×2 (06:11→18:03)
[2016-11-03] MEDS: ETODOLAC 300 MG (LODINE) CAP PO SCH ×2 (06:11→18:03)
[2016-11-03] MEDS: PANTOPRAZOLE 20 MG TABLET (PROTONIX) PO SCH ×2 (06:11→20:04)
[2016-11-03] MEDS: RT-ADVAIR HFA 115/21 MCG PER PUFF IH SCH ×2 (06:29→19:04)
[2016-11-03 06:30] LABS: ALANINE AMINOTRANSFERASE 18 U/L (0-55); ALBUMIN 3.6 G/DL (3.2-4.5); ANION GAP 9 MMOL/L (5-14); ASPARTATE AMINO TRANSFERASE 14 U/L (5-34); BILIRUBIN,TOTAL 0.3 MG/DL (0.1-1.0); BLOOD UREA NITROGEN 18 MG/DL (7-18); BUN/CREATININE RATIO 23; CALCIUM 9.2 MG/DL (8.5-10.1); CARBON DIOXIDE 25 MMOL/L (21-32); CHLORIDE 105 MMOL/L (98-107); CREATININE SERUM 0.79 MG/DL (0.60-1.30); GFR ESTIMATED > 60; GLUCOSE 102 MG/DL (70-105); POTASSIUM 3.8 MMOL/L (3.6-5.0); SODIUM 139 MMOL/L (135-145); TOTAL PROTEIN 6.5 G/DL (6.4-8.2)
[2016-11-03 08:00] VITALS: BP 118/58
--- NOTE | 2016-11-03 08:38 | Diagnostic Imaging Report ---
EXAMINATION: PA and lateral views of the chest. INDICATION: Followup pneumonia. COMPARISON: 11/02/2016. FINDINGS: There are stable interstitial infiltrates seen with minimal right basilar atelectasis. The heart size is normal. No effusion or pneumothorax. The mediastinum is unremarkable. IMPRESSION: Unchanged interstitial infiltrates. Minimal right basilar atelectasis. Dictated by: Dictated on workstation # [id number]
[2016-11-03] MEDS ORDERED: CATHETER FLUSH 10 ML SYR IV PRN (09:45)
[2016-11-03] MEDS: FENOFIBRATE 134 MG (LOFIBRA) CAPSULE PO SCH (10:09)
[2016-11-03] MEDS: DULoxetine 30 MG (CYMBALTA) CAP PO SCH (10:09)
[2016-11-03] MEDS: eZETimibe 10 MG (ZETIA) TABLET PO SCH (10:09)
[2016-11-03] MEDS: ESTRADIOL 1 MG TAB (ESTRACE) PO SCH (10:10)
[2016-11-03] MEDS: FOLIC ACID 1 MG TAB PO SCH (10:10)
[2016-11-03] MEDS: OLMESARTAN 20 MG (BENICAR) TABLET PO SCH (10:10)
[2016-11-03] MEDS: amLODIPine 5 MG (NORVASC) TAB PO SCH (10:10)
[2016-11-03] MEDS: GABAPENTIN 100 MG (NEURONTIN) CAP PO SCH ×2 (10:10→20:04)
[2016-11-03] MEDS: LEVOFLOXACIN 750 MG/D5W 150 ML PRE-MIX IV SCH (11:24)
[2016-11-03 12:00] VITALS: BP 130/59
[2016-11-03] MEDS ORDERED: METHOTREXATE 2.5 MG TAB PO SCH (14:00)
[2016-11-03] MEDS: CATHETER FLUSH 10 ML SYR IV SCH ×2 (14:54→22:07)
[2016-11-03 16:00] VITALS: BP 114/53
[2016-11-03 20:00] VITALS: BP 119/57
[2016-11-03] MEDS: VITAMIN D3 1,000 UNITS (CHOLECALCIFEROL) TABLET PO SCH (20:04)
[2016-11-03] MEDS: rOPINIRole 0.25 MG (REQUIP) TAB PO SCH (20:04)
[2016-11-04] VITALS: BP 114/56
[2016-11-04] MEDS: CEFEPIME 2 GM/NS 50 ML IVPB IV SCH ×4 (00:30→12:00)
[2016-11-04] MEDS: VANCOMYCIN 1250 MG/NS 250 ML IVPB IV SCH ×2 (01:17)
[2016-11-04 04:00] VITALS: BP 128/60
[2016-11-04 05:17] LABS: MEAN PLATELET VOLUME 9.2 FL (7.4-10.4); RED BLOOD COUNT 3.63 10^6/uL (4.35-5.85); RED CELL DISTRIBUTION WIDTH 14.1 % (10.0-14.5); WHITE BLOOD COUNT 4.9 10^3/uL (4.3-11.0)
[2016-11-04 05:39] LABS: ALANINE AMINOTRANSFERASE 17 U/L (0-55); ALBUMIN 3.5 G/DL (3.2-4.5); ANION GAP 10 MMOL/L (5-14); ASPARTATE AMINO TRANSFERASE 16 U/L (5-34); BILIRUBIN,TOTAL 0.4 MG/DL (0.1-1.0); BLOOD UREA NITROGEN 14 MG/DL (7-18); BUN/CREATININE RATIO 19; CALCIUM 9.2 MG/DL (8.5-10.1); CARBON DIOXIDE 27 MMOL/L (21-32); CHLORIDE 103 MMOL/L (98-107); CREATININE SERUM 0.74 MG/DL (0.60-1.30); GFR ESTIMATED > 60; GLUCOSE 90 MG/DL (70-105); POTASSIUM 4.1 MMOL/L (3.6-5.0); SODIUM 140 MMOL/L (135-145); TOTAL PROTEIN 6.4 G/DL (6.4-8.2)
[2016-11-04] MEDS: ETODOLAC 300 MG (LODINE) CAP PO SCH (06:37)
[2016-11-04] MEDS: HYOSCYAMINE 0.375 MG (LEVBID) TAB PO SCH (06:38)
[2016-11-04] MEDS: HYDROcodone/APAP 10 MG/325 MG (LORTAB) TAB PO SCH (06:38)
[2016-11-04] MEDS: PANTOPRAZOLE 20 MG TABLET (PROTONIX) PO SCH (06:38)
[2016-11-04] MEDS: CATHETER FLUSH 10 ML SYR IV SCH (06:39)
[2016-11-04] MEDS: RT-ADVAIR HFA 115/21 MCG PER PUFF IH SCH (06:48)
[2016-11-04 08:00] VITALS: BP 112/56
--- NOTE | 2016-11-04 08:10 | Diagnostic Imaging Report ---
INDICATION: Pneumonia. PA and lateral chest obtained at 7:49 a.m. and compared to yesterday. FINDINGS: Heart is normal in size. Aorta is tortuous. There is unchanged infiltrate in the right base. There is no pneumothorax or pleural fluid. IMPRESSION: Unchanged right basilar infiltrate. No pneumothorax or pleural fluid. Dictated by: Dictated on workstation # [id number]
[2016-11-04] MEDS: ESTRADIOL 1 MG TAB (ESTRACE) PO SCH (08:51)
[2016-11-04] MEDS: GABAPENTIN 100 MG (NEURONTIN) CAP PO SCH (08:51)
[2016-11-04] MEDS: OLMESARTAN 20 MG (BENICAR) TABLET PO SCH (08:51)
[2016-11-04] MEDS: DULoxetine 30 MG (CYMBALTA) CAP PO SCH (08:52)
[2016-11-04] MEDS: FOLIC ACID 1 MG TAB PO SCH (08:52)
[2016-11-04] MEDS: eZETimibe 10 MG (ZETIA) TABLET PO SCH (08:52)
[2016-11-04] MEDS: amLODIPine 5 MG (NORVASC) TAB PO SCH (08:52)
[2016-11-04] MEDS: FENOFIBRATE 134 MG (LOFIBRA) CAPSULE PO SCH (08:52)
--- NOTE | 2016-11-04 09:39 | Progress Note (SOAP) ---
Subjective Subjective/Events-last exam late entry note from 11/03/16 PT REPORTS THAT SHE IS FEELING BETTER TODAY- SHE STATES THAT SHE HAS NO CHEST PAIN, SOME SHORTNESS OF BREATH, NO DIZZINESS, NO LIGHT-HEADEDNESS. Review of Systems General: Fatigue HEENT: No Head Aches Pulmonary: Dyspnea Cough Cardiovascular: No: Chest Pain Gastrointestinal: No: Abdominal Pain, Nausea Genitourinary: No Dysuria Neurological: No: Confusion, Weakness Objective Exam Vital Signs Date Time Temp Pulse Resp B/P Pulse Ox O2 Delivery O2 Flow Rate FiO2 11/04/16 09:32 94 2.00 11/04/16 06:49 2.50 11/04/16 04:00 97.7 79 18 128/60 94 Nasal Cannula 2.00 11/04/16 00:00 97.5 78 18 114/56 92 Nasal Cannula 2.00 11/03/16 21:00 Nasal Cannula 3.00 11/03/16 20:00 97.7 85 18 119/57 93 Nasal Cannula 2.00 11/03/16 19:04 3.00 11/03/16 16:00 96.7 76 18 114/53 96 Nasal Cannula 2.00 11/03/16 12:00 97.0 84 20 130/59 97 Nasal Cannula 2.00 I & O 11/04/16 07:00 Intake Total 4095.0 ml Output Total 4650 ml Balance -555.0 ml Capillary Refill : Less Than 3 SecondsLess Than 3 Seconds General Appearance: No Apparent Distress WD/WN HEENT: PERRL/EOMI Pharynx Normal Neck: Full Range of Motion Supple Respiratory: Chest Non Tender Crackles Decreased Breath Sounds Cardiovascular: Regular Rate, Rhythm Gastrointestinal: normal bowel sounds non tender soft no organomegaly no pulsatile mass Extremity: Normal Capillary Refill No Pedal Edema Neurologic/Psychiatric: Alert Oriented x3 No Motor/Sensory Deficits Normal Mood/Affect Skin: Warm/Dry Lymphatic: No Adenopathy Results Lab Laboratory Tests 11/04/16 04:56: Alanine Aminotransferase (ALT/SGPT) 17, Albumin 3.5, Alkaline Phosphatase 63, Anion Gap 10, Aspartate Amino Transf (AST/SGOT) 16, BUN/Creatinine Ratio 19, Blood Urea Nitrogen 14, Calcium Level 9.2, Carbon Dioxide Level 27, Chloride Level 103, Creatinine 0.74, Estimat Glomerular Filtration Rate > 60, Glucose Level 90, Hematocrit 37, Hemoglobin 11.7, Mean Corpuscular Hemoglobin 32, Mean Corpuscular Hemoglobin Concent 32, Mean Corpuscular Volume 101H, Mean Platelet Volume 9.2, Platelet Count 383, Potassium Level 4.1, Red Blood Count 3.63L, Red Cell Distribution Width 14.1, Sodium Level 140, Total Bilirubin 0.4, Total Protein 6.4, White Blood Count 4.9 Microbiology 11/01/16 Blood Culture - Preliminary, Resulted No growth 11/01/16 Influenza Types A,B Antigen (JOANN) - Final, Complete Assessment/Plan Assessment/Plan Assess & Plan/Chief Complaint PNEUMONIA LEUKOPENIA COUGH WEAKNESS PNEUMONIA - STARTED ON PNEUMONIA PROTOCOL, CONTINUE WITH TREATMENT - MONITOR SYMPTOMS, AGGRESSIVE PULMONARY TOILET LEUKOPENIA - MONITOR CBC COUGH - COUGH SUPPRESSANTS WEAKNESS - ENCOURAGE AMBULATION IN [place] Diagnosis/Problems: Clinical Quality Measures DVT/VTE Risk/Contraindication: Risk Factor Score Per Nursin RFS Level Per Nursing on Admit: 2=Moderate SHYAM NORIEGA MD Nov 04, 2016 09:39
--- NOTE | 2016-11-04 09:44 | Discharge Summary ---
Diagnosis/Chief Complaint Date of Admission Nov 01, 2016 at 11:08 Date of Discharge Admission Diagnosis Admission Diagnosis PNEUMONIA LEUKOPENIA COUGH WEAKNESS Discharge Diagnosis PNEUMONIA LEUKOPENIA COUGH WEAKNESS Reason Hospital Visit PT IS A 66 Y/O FEMALE WHO IS KNOWN TO ME FROM CLINIC. SHE PRESENTED TO THE HOSPITAL WITH WORSENING DYSPNEA - SHE HAD BEEN SEEN AT THE OFFICE, PRESCRIBED ANTIBIOTICS, AND INITIALLY IMPROVED. SHE THEN STARTED TO FEEL POORLY AGAIN OVER THE PAST FEW DAYS. Discharge Summary Discharge Physical Examination Allergies: Coded Allergies: No Known Drug Allergies (Unverified , 03/20/15) Vitals & I&Os Vital Signs Date Time Temp Pulse Resp B/P Pulse Ox O2 Delivery O2 Flow Rate FiO2 11/04/16 09:32 94 2.00 11/04/16 04:00 97.7 79 18 128/60 Nasal Cannula General Appearance: Alert, Oriented X3, Cooperative HEENT: Atraumatic, PERRLA Respiratory: Other (IMPROVED CRACKLES IN RIGHT AND LEFT LUNG WITH CRACKLES IN BASES ONLY AT THIS TIME) Cardiovascular: Regular Rate Abdominal: Normal Bowel Sounds, Soft Extremities: No Clubbing Neuro: Normal Gait, Cranial Nerves 3-12 NL Psych/Mental Status: Mental Status NL, Mood NL Hospital Course PNEUMONIA LEUKOPENIA COUGH WEAKNESS PNEUMONIA - STARTED ON PNEUMONIA PROTOCOL, CONTINUED WITH TREATMENT SYMPTOMS IMPROVED - PT TO HAVE AMBULATORY OXYGEN IN THE HOSPITAL, WILL ORDER OXYGEN FOR HOME USE FOR 1-2 WEEKS UNTIL SYMPTOMS COMPLETELY RESOLVE - WILL ORDER NEBULIZER WITH ALBUTEROL WELL. LEUKOPENIA - RESOLVED AFTER DAY #3 COUGH - COUGH SUPPRESSANTS WEAKNESS - ENCOURAGE AMBULATION IN [place] DISCHARGE TO HOME TODAY. Pending Labs Laboratory Tests 11/04/16 04:56: Alanine Aminotransferase (ALT/SGPT) 17, Albumin 3.5, Alkaline Phosphatase 63, Anion Gap 10, Aspartate Amino Transf (AST/SGOT) 16, BUN/Creatinine Ratio 19, Blood Urea Nitrogen 14, Calcium Level 9.2, Carbon Dioxide Level 27, Chloride Level 103, Creatinine 0.74, Estimat Glomerular Filtration Rate > 60, Glucose Level 90, Hematocrit 37, Hemoglobin 11.7, Mean Corpuscular Hemoglobin 32, Mean Corpuscular Hemoglobin Concent 32, Mean Corpuscular Volume 101, Mean Platelet Volume 9.2, Platelet Count 383, Potassium Level 4.1, Red Blood Count 3.63, Red Cell Distribution Width 14.1, Sodium Level 140, Total Bilirubin 0.4, Total Protein 6.4, White Blood Count 4.9 Discharge Condition at discharge IMPROVING Instructions to patient/family Please see electonic discharge instructions given to patient. Discharge Medications Reviewed and agree with Discharge Medication list on patient's Discharge Instruction sheet Clinical Quality Measures DVT/VTE Risk/Contraindication: Risk Factor Score Per Nursin RFS Level Per Nursing on Admit: 2=Moderate SHYAM NORIEGA MD Nov 04, 2016 09:44
[2016-11-04] MEDS ORDERED: FLUT12AE4 IH (09:46)
[2016-11-04] MEDS ORDERED: LACT1CAP70 PO (09:46)
[2016-11-04] MEDS ORDERED: LEVO500T2 PO (09:46)
--- NOTE | 2016-11-04 09:52 | Discharge Inst-Complex ---
PDI Med Rec & Follow Up Appt. New Medications: Lactobacillus Combination No.9 (Adult 50 + Probiotic) 1 Each Capsule 1 EACH PO TID #30 CAP Levofloxacin (Levaquin) 500 Mg Tablet 500 MG PO DAILY #5 TAB Fluticasone/Salmeterol (Advair Hfa 115-21 Mcg Inhaler) 12 Gm Hfa.aer.ad 2 PUFF IH BID@08,20 #1 GM Continued Medications: Amlodipine Besylate (Norvasc) 5 Mg Tablet 5 MG PO DAILY TAB Cholecalciferol (Vitamin D3) (Vitamin D-3) 2,000 Unit Capsule 2000 UNIT PO HS CAP Diclofenac Sodium (Diclofenac Sodium) 75 Mg Tablet.dr 75 MG PO BID TAB Duloxetine Hcl (Cymbalta Capsule) 30 Mg Cap 30 MG PO DAILY CAP Estradiol (Estradiol) 0.5 Mg Tablet 0.5 MG PO DAILY TAB Ezetimibe (Zetia) 10 Mg Tablet 10 MG PO DAILY TAB Fenofibrate Nanocrystallized (Fenofibrate) 145 Mg Tablet 145 MG PO DAILY TAB Folic Acid (Folic Acid) 1 Mg Tablet 1 MG PO DAILY TAB Gabapentin (Gabapentin) 100 Mg Capsule 200 MG PO DAILY TAKES 2 (100MG) CAPSULES CAP Gabapentin (Gabapentin) 100 Mg Capsule 300 MG PO HS TAKES 3 (100MG) CAPSULES CAP Hydrocodone Bit/Acetaminophen (Hydrocodon-Acetaminophn 10-325) 1 Each Tablet 1 TAB PO BID TAB Hydrocodone/Acetaminophen (Hydrocodon-Acetaminophn 10-325) 1 Each Tablet 1 TAB PO Q6H PRN MODERATE PAIN TAB Hyoscyamine Sulfate (Hyoscyamine Sulfate ER) 0.375 Mg Tab.er.12h 0.375 MG PO BID TAB Infliximab (Remicade) 100 Mg Soln 300 MG IV EVERY 8 WEEKS EA Methotrexate Sodium (Methotrexate) 2.5 Mg Tablet 15 MG PO We TAKES 6 (2.5MG) TABLETS TAB Nitrofurantoin Macrocrystal (Macrodantin) 50 Mg Capsule 50 MG PO HS CAP Olmesartan Medoxomil (Benicar) 40 Mg Tablet 40 MG PO DAILY TAB Omeprazole (Omeprazole) 20 Mg Capsule.dr 20 MG PO BID CAP Ropinirole Hcl (Ropinirole Hcl) 0.5 Mg Tablet 0.5 MG PO HS TAB Prescription: Transmitted to Pharmacy Activity, Diet and PDI Resume Normal Activity: Yes Discharge Diet: Regular Diet Drink 6-8 Glasses of Fluid/Day: Yes Driving Instructions: No Driving for 24 Hours Avoid ALL Tobacco Products: Smoking of Any Kind, Second Hand Smoke Return to The Hospital For: ANY CONCERN FOR WORSENING SYMPTOMS Symptoms to Reoprt to DrSabino: Fever Over 101 Degrees F, Questions/Concerns, Shortness of Breath For Problems or Questions: Contact Your Physician, Go to Emergency Room Infection Signs and Symptoms: Temperature Above 101 F SHYAM NORIEGA MD Nov 04, 2016 09:52
[2016-11-04] MEDS: LEVOFLOXACIN 750 MG/D5W 150 ML PRE-MIX IV SCH (11:08)
== END 2016-11-04 13:05 | disposition home or self-care (01) | DRG 195 ==
LOC: EDUNIT# 08:57 → ER 08:58 → 4TH 11:08
PROVIDERS: ADMIT Family Medicine; ATTEND Family Medicine
DX: J18.9 Pneumonia, unspecified organism (principal); R09.02 Hypoxemia; D72.819 Decreased white blood cell count, unspecified; M06.9 Rheumatoid arthritis, unspecified; I10 Essential (primary) hypertension; E78.00 Pure hypercholesterolemia, unspecified; R53.1 Weakness; Z79.899 Other long term (current) drug therapy; Z96.641 Presence of right artificial hip joint
CPT/HCPCS: 36415; 71020; 80053; 80202; 83605; 85007; 85027; 87040; 87804; 94640; 94760; 96374

== ENCOUNTER → 2016-11-18 | Outpatient (CLI) | payer MEDICARE, OTHER ==
[~2016-11-18] MED LIST changes: +AMLO5TAB4 PO; +CHOL20002 PO; +DICL75TA2 PO; +FLUT12AE4 IH; +FLUT16SP22 NS; +FOLI1TAB24 PO; +HYDR-3820 PO; +INFL100V IV; +LACT1CAP70 PO; +LEVO500T2 PO; +METH2.5T PO; +OLME40TA16 PO; +OMEP20CA12 PO
--- OUTSIDE RECORDS SUMMARY | 2016-11-18 16:12 | XMS REPORT | Continuity of Care Document ---
Author Author [facility] Organization [facility] Address Unknown Phone Unavailable Allergies Active Description Code Type Severity Reaction Onset Reported/Identified Relationship to Patient Clinical Status Yes codeine [id number] Drug Allergy Unknown N/A 10/27/2005 Yes Sulfa (Sulfonamide Antibiotics) [id number] Drug Allergy Unknown NAUSEA BOWEL [place] 01/11/2014 Yes No Known Drug Allergies [id number] Drug Allergy Unknown N/ A 03/20/2015 Medications [...] SANTIAGO, SHYAM Ortiz Ot 790.6 10/28/2014 LEANN SNATIAGO, SHYAM Ortiz Ot 787.91 10/28/2014 LEANN SANTIAGO, [...] LEANN SANTIAGO, SHYAM Ortiz Ot 787.91 01/10/2015 SHYAM NORIEGA MD Ot 789.00 03/21/2015 SHYAM NORIEGA MD Ot 272.4 03/21/2015 SHYAM NORIEGA MD Ot 401.9 03/21/2015 SHYAM NORIEGA MD Ot 458.9 03/21/2015 SHYAM NORIEGA MD Ot 584.9 03/21/2015 SHYAM NORIEGA MD Ot V43.64 06/23/2016 JD SCOTT Ot Z12.31 ENCNTR SCREEN MAMMOGRAM FOR MALIGNANT NE 06/24/2016 JD SCOTTP Ot Z12.31 ENCNTR SCREEN MAMMOGRAM FOR MALIGNANT NE 06/29/2016 JD SCOTTP Ot Z12.31 ENCNTR SCREEN MAMMOGRAM FOR MALIGNANT NE 07/08/2016 JD SCOTTP Ot Z12.31 ENCNTR SCREEN MAMMOGRAM FOR MALIGNANT NE 11/03/2016 SHYAM NORIEGA MD Ot D72.819 DECREASED WHITE BLOOD CELL COUNT, UNSPEC 11/03/2016 SHYAM NORIEGA MD Ot E78.00 PURE HYPERCHOLESTEROLEMIA, UNSPECIFIED 11/03/2016 SHYAM NORIEGA MD Ot I10 ESSENTIAL (PRIMARY) HYPERTENSION 11/03/2016 SHYAM NORIEGA MD Ot J18.9 PNEUMONIA, UNSPECIFIED ORGANISM 11/03/2016 SHYAM NORIEGA MD Ot M06.9 RHEUMATOID ARTHRITIS, UNSPECIFIED 11/03/2016 SHYAM NORIEGA MD Ot R09.02 HYPOXEMIA 11/03/2016 SHYAM NORIEGA MD, Ot R53.1 WEAKNESS 11/03/2016 SHYAM NORIEGA MD Ot Z79.899 OTHER [facility] (CURRENT) DRUG THERAPY 11/03/2016 SHYAM NORIEGA MD Ot Z96.641 PRESENCE OF RIGHT ARTIFICIAL HIP JOINT 11/04/2016 SHYAM NORIEGA MD Ot D72.819 DECREASED WHITE BLOOD CELL COUNT, UNSPEC 11/04/2016 SHYAM NORIEGA MD, Ot E78.00 PURE HYPERCHOLESTEROLEMIA, UNSPECIFIED 11/04/2016 SHYAM NORIEGA MD, Ot I10 ESSENTIAL (PRIMARY) HYPERTENSION 11/04/2016 SHYAM NORIEGA MD, Ot J18.9 PNEUMONIA, UNSPECIFIED ORGANISM 11/04/2016 SHYAM NORIEGA MD, Ot M06.9 RHEUMATOID ARTHRITIS, UNSPECIFIED 11/04/2016 SHYAM NORIEGA MD Ot R09.02 HYPOXEMIA 11/04/2016 SHYAM NORIEGA MD Ot R53.1 WEAKNESS 11/04/2016 SHYAM NORIEGA MD, Ot Z79.899 OTHER [facility] (CURRENT) DRUG THERAPY 11/04/2016 SHYAM NORIEGA MD Ot Z96.641 PRESENCE OF RIGHT ARTIFICIAL HIP JOINT Procedures Results Test Result Range Complete blood count (CBC) with automated white blood cell (WBC) differential - 11/01/16 09:40 Blood leukocytes automated count (number/volume) 3.8 10*3/ uL 4.3-11.0 Blood erythrocytes automated count (number/volume) 3.83 10*6 /uL 4.35-5.85 Venous blood hemoglobin measurement (mass/volume) 12.6 g/dL 11.5-16.0 Blood hematocrit (volume fraction) 38 % 35-52 Automated erythrocyte mean corpuscular volume 100 [foz_us] 80-99 Automated erythrocyte mean corpuscular hemoglobin (mass per erythrocyte) 33 pg 25-34 Automated erythrocyte mean corpuscular hemoglobin concentration measurement ( mass/volume) 33 g/dL 32-36 Automated erythrocyte distribution width ratio 13.7 % 10.0-14.5 Automated blood platelet count (count/volume) 350 10*3/uL 130-400 Automated blood platelet mean volume measurement 9.6 [foz_us ] 7.4-10.4 Automated blood neutrophils/100 leukocytes 56 % 42-75 Automated blood lymphocytes/100 leukocytes 18 % 12-44 Blood monocytes/100 leukocytes 21 % 0-12 Automated blood eosinophils/100 leukocytes 4 % 0-10 Automated blood basophils/100 leukocytes 1 % 0-10 Blood neutrophils automated count (number/volume) 2.1 10*3 1.8-7.8 Blood lymphocytes automated count (number/volume) 0.7 10*3 1.0-4.0 Blood monocytes automated count (number/volume) 0.8 10*3 0.0-1.0 Automated eosinophil count 0.2 10*3/uL 0.0-0.3 Automated blood basophil count (count/volume) 0.0 10*3/uL 0.0-0.1 Comprehensive metabolic panel - 11/01/16 09:40 Serum or plasma sodium measurement (moles/volume) 139 mmol/ L 135-145 Serum or plasma potassium measurement (moles/volume) 4.1 mmol/L 3.6-5.0 Serum or plasma chloride measurement (moles/volume) 104 mmol /L 98-107 Carbon dioxide 25 mmol/L 21-32 Serum or plasma anion gap determination (moles/volume) 10 mmol/L 5-14 Serum or plasma urea nitrogen measurement (mass/volume) 15 mg/dL 7-18 Serum or plasma creatinine measurement (mass/volume) 0.85 mg /dL 0.60-1.30 Serum or plasma urea nitrogen/creatinine mass ratio 18 NRG Serum or plasma creatinine measurement with calculation of estimated glomerular filtration rate > NRG Serum or plasma glucose measurement (mass/volume) 94 mg/dL 70-105 Serum or plasma calcium measurement (mass/volume) 9.4 mg/dL 8.5-10.1 Serum or plasma total bilirubin measurement (mass/volume) 0.5 mg/dL 0.1-1.0 Serum or plasma alkaline phosphatase measurement (enzymatic activity/volume) 62 U/L 40-136 Serum or plasma aspartate aminotransferase measurement (enzymatic activity/ volume) 37 U/L 5-34 Serum or plasma alanine aminotransferase measurement (enzymatic activity/volume ) 24 U/L 0-55 Serum or plasma protein measurement (mass/volume) 7.0 g/dL 6.4-8.2 Serum or plasma albumin measurement (mass/volume) 3.8 g/dL 3.2-4.5 Blood manual differential performed detection - 11/01/16 09:40 Blood monocytes/100 leukocytes 15 % NRG Manual blood segmented neutrophils/100 leukocytes 61 % NRG Blood band neutrophils/100 leukocytes 2 % NRG Manual blood lymphocytes/100 leukocytes 16 % NRG Manual eosinophils/100 leukocytes in nose 5 % NRG Manual blood basophils/100 leukocytes 1 % NRG Blood toxic granules detection by light microscopy 1+ NRG Influenza virus A and B antigen detection - 11/01/16 10:55 FLU RESULT NEGATIVE FOR INFLUENZA A AND B ANTIGENS BY IA NRG Blood lactic acid measurement (moles/volume) - 11/01/16 11:19 Blood lactic acid measurement (moles/volume) 0.9 mmol/L 0.5-2.0 Bacterial blood culture - 11/01/16 11:19 Bacterial blood culture NG NRG Bacterial blood culture - 11/01/16 11:24 Bacterial blood culture NG NRG Automated blood complete blood count (hemogram) panel - 11/02/16 04:06 Blood leukocytes automated count (number/volume) 2.6 10*3/ uL 4.3-11.0 Blood erythrocytes automated count (number/volume) 3.80 10*6 /uL 4.35-5.85 Venous blood hemoglobin measurement (mass/volume) 12.4 g/dL 11.5-16.0 Blood hematocrit (volume fraction) 38 % 35-52 Automated erythrocyte mean corpuscular volume 99 [foz_us] 80-99 Automated erythrocyte mean corpuscular hemoglobin (mass per erythrocyte) 33 pg 25-34 Automated erythrocyte mean corpuscular hemoglobin concentration measurement ( mass/volume) 33 g/dL 32-36 Automated erythrocyte distribution width ratio 13.6 % 10.0-14.5 Automated blood platelet count (count/volume) 385 10*3/uL 130-400 Automated blood platelet mean volume measurement 9.6 [foz_us ] 7.4-10.4 Comprehensive metabolic panel - 11/02/16 04:06 Serum or plasma sodium measurement (moles/volume) 136 mmol/ L 135-145 Serum or plasma potassium measurement (moles/volume) 4.1 mmol/L 3.6-5.0 Serum or plasma chloride measurement (moles/volume) 103 mmol /L 98-107 Carbon dioxide 21 mmol/L 21-32 Serum or plasma anion gap determination (moles/volume) 12 mmol/L 5-14 Serum or plasma urea nitrogen measurement (mass/volume) 15 mg/dL 7-18 Serum or plasma creatinine measurement (mass/volume) 0.76 mg /dL 0.60-1.30 Serum or plasma urea nitrogen/creatinine mass ratio 20 NRG Serum or plasma creatinine measurement with calculation of estimated glomerular filtration rate > NRG Serum or plasma glucose measurement (mass/volume) 147 mg/dL 70-105 Serum or plasma calcium measurement (mass/volume) 9.5 mg/dL 8.5-10.1 Serum or plasma total bilirubin measurement (mass/volume) 0.5 mg/dL 0.1-1.0 Serum or plasma alkaline phosphatase measurement (enzymatic activity/volume) 61 U/L 40-136 Serum or plasma aspartate aminotransferase measurement (enzymatic activity/ volume) 24 U/L 5-34 Serum or plasma alanine aminotransferase measurement (enzymatic activity/volume ) 22 U/L 0-55 Serum or plasma protein measurement (mass/volume) 7.0 g/dL 6.4-8.2 Serum or plasma albumin measurement (mass/volume) 3.8 g/dL 3.2-4.5 Vancomycin trough - 11/02/16 12:37 Vancomycin trough 14.1 ug/mL 10.0-20.0 Automated blood complete blood count (hemogram) panel - 11/03/16 05:45 Blood leukocytes automated count (number/volume) 10.4 10*3/ uL 4.3-11.0 Blood erythrocytes automated count (number/volume) 3.67 10*6 /uL 4.35-5.85 Venous blood hemoglobin measurement (mass/volume) 12.0 g/dL 11.5-16.0 Blood hematocrit (volume fraction) 36 % 35-52 Automated erythrocyte mean corpuscular volume 99 [foz_us] 80-99 Automated erythrocyte mean corpuscular hemoglobin (mass per erythrocyte) 33 pg 25-34 Automated erythrocyte mean corpuscular hemoglobin concentration measurement ( mass/volume) 33 g/dL 32-36 Automated erythrocyte distribution width ratio 13.9 % 10.0-14.5 Automated blood platelet count (count/volume) 431 10*3/uL 130-400 Automated blood platelet mean volume measurement 9.4 [foz_us ] 7.4-10.4 Comprehensive metabolic panel - 11/03/16 05:45 Serum or plasma sodium measurement (moles/volume) 139 mmol/ L 135-145 Serum or plasma potassium measurement (moles/volume) 3.8 mmol/L 3.6-5.0 Serum or plasma chloride measurement (moles/volume) 105 mmol /L 98-107 Carbon dioxide 25 mmol/L 21-32 Serum or plasma anion gap determination (moles/volume) 9 mmol/L 5-14 Serum or plasma urea nitrogen measurement (mass/volume) 18 mg/dL 7-18 Serum or plasma creatinine measurement (mass/volume) 0.79 mg /dL 0.60-1.30 Serum or plasma urea nitrogen/creatinine mass ratio 23 NRG Serum or plasma creatinine measurement with calculation of estimated glomerular filtration rate > NRG Serum or plasma glucose measurement (mass/volume) 102 mg/dL 70-105 Serum or plasma calcium measurement (mass/volume) 9.2 mg/dL 8.5-10.1 Serum or plasma total bilirubin measurement (mass/volume) 0.3 mg/dL 0.1-1.0 Serum or plasma alkaline phosphatase measurement (enzymatic activity/volume) 57 U/L 40-136 Serum or plasma aspartate aminotransferase measurement (enzymatic activity/ volume) 14 U/L 5-34 Serum or plasma alanine aminotransferase measurement (enzymatic activity/volume ) 18 U/L 0-55 Serum or plasma protein measurement (mass/volume) 6.5 g/dL 6.4-8.2 Serum or plasma albumin measurement (mass/volume) 3.6 g/dL 3.2-4.5 Automated blood complete blood count (hemogram) panel - 11/04/16 04:56 Blood leukocytes automated count (number/volume) 4.9 10*3/ uL 4.3-11.0 Blood erythrocytes automated count (number/volume) 3.63 10*6 /uL 4.35-5.85 Venous blood hemoglobin measurement (mass/volume) 11.7 g/dL 11.5-16.0 Blood hematocrit (volume fraction) 37 % 35-52 Automated erythrocyte mean corpuscular volume 101 [foz_us] 80-99 Automated erythrocyte mean corpuscular hemoglobin (mass per erythrocyte) 32 pg 25-34 Automated erythrocyte mean corpuscular hemoglobin concentration measurement ( mass/volume) 32 g/dL 32-36 Automated erythrocyte distribution width ratio 14.1 % 10.0-14.5 Automated blood platelet count (count/volume) 383 10*3/uL 130-400 Automated blood platelet mean volume measurement 9.2 [foz_us ] 7.4-10.4 Comprehensive metabolic panel - 11/04/16 04:56 Serum or plasma sodium measurement (moles/volume) 140 mmol/ L 135-145 Serum or plasma potassium measurement (moles/volume) 4.1 mmol/L 3.6-5.0 Serum or plasma chloride measurement (moles/volume) 103 mmol /L 98-107 Carbon dioxide 27 mmol/L 21-32 Serum or plasma anion gap determination (moles/volume) 10 mmol/L 5-14 Serum or plasma urea nitrogen measurement (mass/volume) 14 mg/dL 7-18 Serum or plasma creatinine measurement (mass/volume) 0.74 mg /dL 0.60-1.30 Serum or plasma urea nitrogen/creatinine mass ratio 19 NRG Serum or plasma creatinine measurement with calculation of estimated glomerular filtration rate > NRG Serum or plasma glucose measurement (mass/volume) 90 mg/dL 70-105 Serum or plasma calcium measurement (mass/volume) 9.2 mg/dL 8.5-10.1 Serum or plasma total bilirubin measurement (mass/volume) 0.4 mg/dL 0.1-1.0 Serum or plasma alkaline phosphatase measurement (enzymatic activity/volume) 63 U/L 40-136 Serum or plasma aspartate aminotransferase measurement (enzymatic activity/ volume) 16 U/L 5-34 Serum or plasma alanine aminotransferase measurement (enzymatic activity/volume ) 17 U/L 0-55 Serum or plasma protein measurement (mass/volume) 6.4 g/dL 6.4-8.2 Serum or plasma albumin measurement (mass/volume) 3.5 g/dL 3.2-4.5 Encounters ACCT No. Visit Date/Time Discharge Status Pt. Type Provider Facility Loc./Unit Complaint [id number] 11/01/2016 11:08:00 2016 13:05:00 DIS Outpatient SHYAM NORIEGA MD [facility] 4TH PNEUMONIA; HYPOXIA [id number] 03/20/2015 14:44:00 2014 16:32:00 DIS Inpatient SHYAM NORIEGA MD [facility] 4TH [id number] 11/05/2014 10:34:00 2014 23:59:59 CLS Outpatient ROHAN JOYA MD [facility] CARD [id number] 11/01/2014 14:10:00 2014 23:59:59 CLS Outpatient ROHAN JOYA MD [facility] CARD [id number] 10/03/2014 10:12:00 2014 12:55:00 DIS Emergency LINDA PRICE MD [facility] ER [id number] 09/26/2014 12:48:00 2014 23:59:59 CLS Outpatient SHYAM NORIEGA MD [facility] RAD [id number] 09/25/2014 12:37:00 2014 23:59:59 CLS Outpatient SHYAM ONRIEGA MD [facility] LAB [id number] 09/09/2014 13:09:00 2013 14:17:00 DIS Outpatient ADITYA PERLA MD [facility] CARD [id number] 07/26/2014 08:23:00 2013 09:27:00 DIS Outpatient [id number] 06/14/2014 09:30:00 2013 23:59:59 CLS Outpatient [id number] 05/03/2014 07:30:00 2013 08:17:00 DIS Outpatient [id number] 03/18/2014 12:52:00 2013 14:24:00 DIS Outpatient [id number] 03/07/2014 18:36:00 2013 21:07:00 DIS Emergency [id number] 01/11/2014 11:23:00 2013 23:59:59 CLS Outpatient [id number] 12/17/2013 10:41:00 2013 11:12:00 DIS Outpatient [id number] 01/07/2014 12:26:00 2013 23:59:59 CLS Outpatient [id number] 12/24/2013 12:08:00 2013 23:59:59 CLS Outpatient [id number] 11/16/2013 08:13:00 2013 09:04:00 DIS Outpatient [id number] 11/01/2013 19:13:00 2013 21:19:00 DIS Emergency [id number] 07/20/2013 08:47:00 2012 23:59:59 CLS Outpatient [id number] 06/11/2013 08:28:00 2012 23:59:59 CLS Outpatient [id number] 06/11/2013 08:21:00 2012 23:59:59 CLS Outpatient [id number] 06/23/2016 08:40:00 ACT Outpatient JD SCOTT [facility] RAD SCREENING [id number] 01/03/2015 20:45:00 Document Registration
--- NOTE | 2016-11-18 19:03 | Diagnostic Imaging Report ---
Left shoulder. INDICATION: Fell. 3 views were obtained. FINDINGS: There is no fracture, dislocation or acute bony abnormality evident. The glenohumeral joint is fairly well-maintained. There is only mild degenerative disease of the acromioclavicular joint. Along the undersurface of the midportion of the right clavicle, there is a 5-6 MM calcific density. This finding was also present on the prior chest exam of 11/04/16. This density is of uncertain etiology. This could be a sequela of prior trauma. The soft tissues are otherwise unremarkable. IMPRESSION: There is no acute bony abnormality identified. Dictated by: Dictated on workstation # [id number]
--- NOTE | 2016-11-18 19:11 | Diagnostic Imaging Report ---
INDICATION: Fell in August with left shoulder pain since that time. FINDINGS: Two views of the left humerus demonstrate no evidence of a fracture. There is some calcification between the left clavicle and acromion possibly within the ligament. This was present on chest radiograph from October the . IMPRESSION: There is calcification between the left clavicle and acromion which was seen previously. This may be calcification within a ligament. Dictated by: Dictated on workstation # [id number]
--- NOTE | 2016-11-18 19:12 | Diagnostic Imaging Report ---
INDICATION: Fell in August, left shoulder pain since. FINDINGS: Frontal view of the chest demonstrates the lungs to be clear. The heart size and vascularity are normal. No fractures are seen. Degenerative changes are present in the spine. IMPRESSION: Negative chest. Dictated by: Dictated on workstation # [id number]
== END ==
LOC: RAD 16:07
PROVIDERS: ATTEND Nurse Practitioner Family
DX: R05 Cough (principal); M25.512 Pain in left shoulder
CPT/HCPCS: 71020; 73030; 73060

== ENCOUNTER 2017-08-07 18:52 | Emergency (ER) | payer MEDICARE, OTHER ==
[~2017-08-07] VITALS: Ht 170.2 cm; Wt 76.2 kg
[~2017-08-07 18:52] MED LIST changes: +OLME40TA12 PO; -OLME40TA16 PO
--- NOTE | 2017-08-07 19:20 | ED Upper Extremity ---
General Chief Complaint: Upper Extremity Stated Complaint: L HAND RING FINGER INJ Source: patient Exam Limitations: no limitations History of Present Illness Time seen by provider: 19:18 Initial Comments To ER with swelling and pain to the dorsal aspect of the left ring finger. This occurred 2-3 days ago after she smashed this with occlusive cinder block. She states that she's been picking at it and it got infected. The entire finger is swollen. There is redness only of the tip and there is a pustule of the proximal nail fold. Onset: yesterday Severity: moderate Pain/Injury Location: left 4th finger Modifying Factors: Worse With Movement (high ) Allergies and Home Medications Allergies Coded Allergies: No Known Drug Allergies (Unverified , 03/20/15) Home Medications Amlodipine Besylate 5 Mg Tablet, 5 MG PO DAILY, (Reported) Cholecalciferol (Vitamin D3) 2,000 Unit Capsule, 2,000 UNIT PO HS, (Reported) Diclofenac Sodium 75 Mg Tablet.dr, 75 MG PO BID, (Reported) Doxycycline Hyclate 100 Mg Capsule, 100 MG PO BID, #14 Prescribed by: JESSE ALBERTS on 08/07/17 194 Duloxetine Hcl 30 Mg Cap, 30 MG PO DAILY, (Reported) Estradiol 0.5 Mg Tablet, 0.5 MG PO DAILY, (Reported) Ezetimibe 10 Mg Tablet, 10 MG PO DAILY, (Reported) Fenofibrate Nanocrystallized 145 Mg Tablet, 145 MG PO DAILY, (Reported) Fluticasone/Salmeterol 12 Gm Hfa.aer.ad, 2 PUFF IH BID@, #1 Prescribed by: SHYAM NORIEGA on 11/04/16 0946 Folic Acid 1 Mg Tablet, 1 MG PO DAILY, (Reported) Gabapentin 100 Mg Capsule, 200 MG PO DAILY, (Reported) TAKES 2 (100MG) CAPSULES Gabapentin 100 Mg Capsule, 300 MG PO HS, (Reported) TAKES 3 (100MG) CAPSULES Hydrocodone Bit/Acetaminophen 1 Each Tablet, 1 TAB PO BID, (Reported) Hydrocodone/Acetaminophen 1 Each Tablet, 1 TAB PO Q6H PRN for MODERATE PAIN, ( Reported) Hyoscyamine Sulfate 0.375 Mg Tab.er.12h, 0.375 MG PO BID, (Reported) Infliximab 100 Mg Soln, 300 MG IV EVERY 8 WEEKS, (Reported) Lactobacillus Combination No.9 1 Each Capsule, 1 EACH PO TID, #30 Prescribed by: SHYAM NORIEGA on 11/04/1646 Levofloxacin 500 Mg Tablet, 500 MG PO DAILY, #5 Prescribed by: SHYAM NORIEGA on 11/04/16 0946 Methotrexate Sodium 2.5 Mg Tablet, 15 MG PO We, (Reported) TAKES 6 (2.5MG) TABLETS Nitrofurantoin Macrocrystal 50 Mg Capsule, 50 MG PO HS, (Reported) Olmesartan Medoxomil 40 Mg Tablet, 40 MG PO DAILY, (Reported) Omeprazole 20 Mg Capsule.dr, 20 MG PO BID, (Reported) Ropinirole Hcl 0.5 Mg Tablet, 0.5 MG PO HS, (Reported) Constitutional: see HPI EENTM: see HPI Respiratory: no symptoms reported Genitourinary: no symptoms reported Musculoskeletal: no symptoms reported Skin: see HPI Psychiatric/Neurological: No Symptoms Reported Past Rmcwrqx-Whjihg-Akjmqy Hx Patient Social History 2nd Hand Smoke Exposure: No Recent Foreign Travel: No Contact w/Someone Who Travel: No Recent Hopitalizations: No Immunizations Up To Date Tetanus Booster (TDap): Unknown Date of Pneumonia Vaccine: Nov 02, 2012 Date of Influenza Vaccine: Jun 19, 2016 Seasonal Allergies Seasonal Allergies: No Surgeries History of Surgeries: Yes (R TOTAL HIP L AND R SURGERY ON KNEES) Surgeries: Breast, Gallbladder, Hysterectomy, Joint Replacement, Orthopedic, Renal Respiratory History of Respiratory Disorde: No Cardiovascular History of Cardiac Disorders: Yes Cardiac Disorders: High Cholesterol, Hypertension Neurological History of Neurological Disord: No 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 System Hx 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 Disorders: No Sexually Transmitted Disease: No HIV/AIDS: No Female 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 Genitourinary Genitourinary Disorders: Kidney Stones, UTI-Chronic Gastrointestinal History of Gastrointestinal Di: Yes Gastrointestinal Disorders: Diverticulosis Musculoskeletal History of Musculoskeletal Dis: Yes (march 03 brucitis sack removed from left knee, right femur repair) Musculoskeletal Disorders: Arthritis, Rheumatoid Arthritis Endocrine History of Endocrine Disorders: No HEENT Loss of Vision: Denies Hearing Impairment: Denies Cancer History of Cancer: No Psychosocial History of Psychiatric Problem: No Integumentary History of Skin or Integumenta: No Blood Transfusions History of Blood Disorders: No Adverse Reaction to a Blood Tr: No Family Medical History Significant Family History: Heart Disease, Other Conditions/Hx Family Medial History: Alzheimer's disease G8 BROTHER G8 SISTER Arthritis G8 BROTHER Cataracts G8 SISTER Dementia G8 SISTER Fibrocystic disease of breast G8 SISTER Hypertension 19 FATHER 19 MOTHER G8 BROTHER G8 BROTHER G8 SISTER G8 SISTER Kidney disease G8 BROTHER No Family History of: AIDS Abdominal aortic aneurysm [place]'s disease Alcoholism Aphasia Asthma Cancer of mouth Cardiovascular disease Colon cancer Completed stroke Congenital disease Congenital heart disease Coronary thrombosis Cystic fibrosis Diabetes mellitus Drug abuse Dysphasia Gastroenteritis Glaucoma Headache disorder Hypercholesterolemia Infertility Myocardial infarction Neoplasm Not obtainable due to adoption Osteoporosis Parkinson's disease Prostate cancer Psychosocial problem Respiratory disorder Seizure disorder Severe allergy Thyroid disease Tuberculosis Visual disorder Physical Exam Vital Signs Vital Sign - Last 12Hours 08/07/17 19:18 Temp 98.7 Pulse 88 Resp 18 B/P (MAP) 144/88 Pulse Ox 96 O2 Delivery Room Air Capillary Refill : General Appearance: WD/WN, no apparent distress HEENT: PERRL/EOMI, normal ENT inspection Neck: non-tender, full range of motion Respiratory: no respiratory distress, no accessory muscle use Gastrointestinal: non tender, soft Shoulder: normal inspection, non-tender Elbow/Forearm: normal inspection, non-tender, no evidence of injury Wrist: Yes normal inspection, Yes non-tender Hand: normal inspection, Left, swelling (swelling to the left ring finger that extends proximally to the proximal phalanx. There is a pustule over the proximal nail fold) Progress/Results/Core Measures Results/Orders My Orders Orders - JESSE ALBERTS APRN Sulfamethoxazole/Trimet Ds Tab (Bactrim (08/07/17 19:30) Hydrocodone/Apap 5/325 Tablet (Lortab 5 (08/07/17 19:30) Lidocaine 2% Injection 20 Ml (Xylocaine (08/07/17 19:30) Ceftriaxone Injection (Rocephin Injectio (08/07/17 19:45) Lidocaine 1% Injection (Xylocaine 1% Inj (08/07/17 19:45) Wound Culture (08/07/17 19:40) Medications Given in ED Current Medications Medications Dose Ordered Sig/Arcenio Route Start Time Stop Time Status Last Admin Dose Admin Acetaminophen/ Hydrocodone Bitart 1 tab ONCE ONCE PO 08/07/17 19:30 08/07/17 19:31 DC 08/07/17 19:25 1 TAB Ceftriaxone Sodium 1,000 mg ONCE ONCE IM 08/07/17 19:45 08/07/17 19:46 DC 08/07/17 19:50 1,000 MG Lidocaine HCl 2.1 ml ONCE ONCE INJ 08/07/17 19:45 08/07/17 19:46 DC 08/07/17 19:50 2.1 ML Lidocaine HCl 20 ml ONCE ONCE INJ 08/07/17 19:30 08/07/17 19:31 DC 08/07/17 19:24 20 ML Trimethoprim/ Sulfamethoxazole 1 ea ONCE ONCE PO 08/07/17 19:30 08/07/17 19:31 DC 08/07/17 19:24 1 EA Vital Signs/I&O Vital Sign - Last 12Hours 08/07/17 08/07/17 08/07/17 19:18 19:25 19:50 Temp 98.7 98.7 98.7 Pulse 88 Resp 18 B/P (MAP) 144/88 Pulse Ox 96 O2 Delivery Room Air Departure Communication (Admissions) Progress Notes Her wedding ring was cut off using a ring cutter with her permission this was then handed to her . The finger was then anesthetized with 5 mL of 2 percent lidocaine without epinephrine using a digital block. The fluctuant area over the proximal nail fold was then incised with an 11 blade scalpel. Culture collected and sent to lab. Small amount of purulent and bloody material was expressed. Soaked in Betadine/saline solution, then wrapped in tube gauze. In addition to the Bactrim we'll give him injection of Rocephin Impression Impression: Primary Impression: Paronychia of finger Disposition: 01 HOME, SELF-CARE Condition: Stable Departure-Patient Inst. Decision time for Depature: 19:41 Referrals: SHYAM NORIEGA MD (PCP/Family) Primary Care Physician Patient Instructions: Paronychia Add. Discharge Instructions: 1. The throbbing and pain will return in a few hours when the lidocaine wears off. Return to the emergency room for any worsening redness or swelling or fevers. Call Dr. NORIEGA tomorrow to make an appointment for follow-up. Change the dressing daily and if a simple Band-Aid is sufficient to collect the drainage then that would be fine to use. Scripts Doxycycline Hyclate (Doxycycline Hyclate) 100 Mg Capsule 100 MG PO BID, #14 CAP Prov: JESSE ALBERTS APRN 08/07/17 Copy Copies To 1: SHYAM NORIEGA MD, PETER J APRN Aug 07, 2017 19:20
[2017-08-07] MEDS ORDERED: LIDOCAINE 2% 20 ML (XYLOCAINE) VIAL INJ ONE (19:30)
[2017-08-07] MEDS ORDERED: HYDROcodone/APAP 5 MG/325 MG (LORTAB) TAB PO ONE (19:30)
[2017-08-07] MEDS ORDERED: TRIM/SULFAMETH 160/800 (SEPTRA DS) TAB PO ONE (19:30)
[2017-08-07] MEDS ORDERED: cefTRIAXone 1 GM (ROCEPHIN) VIAL IM ONE (19:45)
[2017-08-07] MEDS ORDERED: LIDOCAINE 1% INJ 20 ML (XYLOCAINE) VIAL INJ ONE (19:45)
[2017-08-07] MEDS ORDERED: DOXY100C2 PO (19:45)
[2017-08-07 19:54] VITALS: BP 135/78
== END 2017-08-07 19:54 | disposition home or self-care (01) ==
LOC: EDUNIT# 18:52 → ER 18:53
DX: L03.012 Cellulitis of left finger (principal); E78.00 Pure hypercholesterolemia, unspecified; I10 Essential (primary) hypertension; M06.9 Rheumatoid arthritis, unspecified; Z87.442 Personal history of urinary calculi; Z96.641 Presence of right artificial hip joint; Z90.710 Acquired absence of both cervix and uterus; Z82.49 Family history of ischemic heart disease and other diseases of the circulatory system
CPT/HCPCS: 87070; 87077; 87186; 87205; 99284

== ENCOUNTER → 2017-08-10 | Outpatient (CLI) | payer MEDICARE, OTHER ==
[~2017-08-10] VITALS: Ht 170.2 cm; Wt 76.2 kg
[~2017-08-10] MED LIST changes: +CLINDAMYCIN 600 MG/NS 50 ML IVPB IV ONE; +DOXY100C2 PO; +cefTRIAXone 1 GM/NS 50 ML IVPB IV ONE
[2017-08-10 14:00] VITALS: BP 108/63
== END ==
LOC: SDC 13:38
PROVIDERS: ATTEND Family Medicine
DX: L03.012 Cellulitis of left finger (principal); B95.62 Methicillin resistant Staphylococcus aureus infection as the cause of diseases classified elsewhere
CPT/HCPCS: 96365

== ENCOUNTER → 2017-09-15 | Outpatient (CLI) | payer MEDICARE, OTHER ==
[~2017-09-15] VITALS: Ht 170.2 cm; Wt 76.2 kg
[~2017-09-15] MED LIST changes: -CLINDAMYCIN 600 MG/NS 50 ML IVPB IV ONE; +VANCOMYCIN 1 GM/NS 250 ML IVPB IV ONE; -cefTRIAXone 1 GM/NS 50 ML IVPB IV ONE
[2017-09-15 11:35] VITALS: BP 132/78
[2017-09-15 12:31] LABS: MEAN PLATELET VOLUME 9.9 FL (7.4-10.4); RED BLOOD COUNT 3.26 10^6/uL (4.35-5.85); RED CELL DISTRIBUTION WIDTH 13.6 % (10.0-14.5); WHITE BLOOD COUNT 5.2 10^3/uL (4.3-11.0)
[2017-09-15 12:53] LABS: ALANINE AMINOTRANSFERASE 44 U/L (0-55); ALKALINE PHOSPHATASE 43 U/L (40-136); BILIRUBIN,TOTAL 0.4 MG/DL (0.1-1.0); BUN/CREATININE RATIO 23; CALCIUM 9.6 MG/DL (8.5-10.1); CARBON DIOXIDE 25 MMOL/L (21-32); CHLORIDE 105 MMOL/L (98-107); CREATININE SERUM 0.81 MG/DL (0.60-1.30); GFR ESTIMATED > 60; GLUCOSE 105 MG/DL (70-105); POTASSIUM 3.4 MMOL/L (3.6-5.0); SODIUM 139 MMOL/L (135-145); TOTAL PROTEIN 7.4 GM/DL (6.4-8.2)
== END ==
LOC: SDC 11:24
PROVIDERS: ATTEND Nurse Practitioner Family
DX: L03.90 Cellulitis, unspecified (principal)
CPT/HCPCS: 36415; 80053; 85027; 96365

== ENCOUNTER 2017-11-26 09:39 | Emergency (ER) | payer MEDICARE, OTHER ==
[~2017-11-26] VITALS: Ht 170.2 cm; Wt 76.2 kg
[~2017-11-26 09:39] MED LIST changes: -VANCOMYCIN 1 GM/NS 250 ML IVPB IV ONE
--- NOTE | 2017-11-26 11:03 | Diagnostic Imaging Report ---
PROCEDURE: CT head and CT cervical spine without contrast. TECHNIQUE: Multiple contiguous axial images were obtained through the brain and cervical spine without the use of intravenous contrast. Sagittal and coronal reformations through the cervical spine were then performed. INDICATION: Fall. Head injury. Comparison: 11/22/2014 Findings: Head CT: No acute intracranial hemorrhage, mass effect or edema is seen. Jeffery-white junction is preserved. Ventricles appear normal. No focal abnormality is suspected. The paranasal sinuses and mastoids are clear as visualized. Cervical spine CT: There is some mild reversal of the normal cervical lordosis which is likely degenerative. There is anterior listhesis of C4 and C5 also likely degenerative. No acute post traumatic malalignment or osseous destructive process is seen. No acute fracture suspected. There is disc space narrowing and spurring throughout the cervical spine with sparing at C2/C3. There is facet arthropathy throughout the cervical spine most prominent on the right with multiple levels of mild to moderate central and moderate to severe foraminal narrowing. IMPRESSION: 1. No evidence of an acute intracranial abnormality. 2. No evidence of acute cervical spine abnormality. Fairly severe degenerative changes as described above. Dictated by: Dictated on workstation # [id number]
--- NOTE | 2017-11-26 11:09 | Diagnostic Imaging Report ---
INDICATION: Fall. Pain. COMPARISON: None FINDINGS: 3 views of the left shoulder are obtained. No acute fracture, malalignment or osseous destructive process is seen. The glenohumeral and acromioclavicular joints appear unremarkable. IMPRESSION: No acute abnormality is demonstrated. Dictated by: Dictated on workstation # [id number]
--- NOTE | 2017-11-26 11:15 | Diagnostic Imaging Report ---
INDICATION: Fall. Pain. COMPARISON: None. FINDINGS: Three views of the left knee are obtained. No acute fracture, malalignment, or osseous destructive process is seen. There is tricompartmental marginal spurring with mild narrowing of the medial joint space. Soft tissues appear unremarkable. IMPRESSION: Mild degenerative changes. No acute fracture is seen. Dictated by: Dictated on workstation # [id number]
--- NOTE | 2017-11-26 11:16 | Diagnostic Imaging Report ---
Indication: Injury. Fall. Comparison: None Findings: AP view of the pelvis and 2 views of the left hip are obtained. There are postoperative changes of right hip arthroplasty. No unusual lucency or reaction seen about the prosthetic components which appear in good alignment. The distal aspect of the femoral component is not visualized. No acute fracture or osseous destructive process seen. Left hip joint space appears preserved. Sacral iliac joints appear unremarkable. There are degenerative changes in the lumbar spine. IMPRESSION: No acute abnormality is seen. Postoperative changes in the right hip without evidence of complicating process. Dictated by: Dictated on workstation # [id number]
--- NOTE | 2017-11-26 11:17 | Diagnostic Imaging Report ---
INDICATION: Fall. COMPARISON: 11/18/2016. FINDINGS: Single frontal view of the chest is obtained. Heart size is normal. The pulmonary vessels appear unremarkable. There is no pneumothorax, mediastinal widening or pleural fluid. Lungs are clear. IMPRESSION: No acute abnormality is demonstrated. Dictated by: Dictated on workstation # [id number]
--- NOTE | 2017-11-26 11:24 | ED Fall/Injury ---
General Chief Complaint: Trauma-Non Activation Stated Complaint: SHOULDER PAIN FROM FALL Nursing Triage Note: SEE TRIAGE History of Present Illness Location Injury Occurred: [facility] Allergies and Home Medications Allergies Coded Allergies: No Known Drug Allergies (Unverified , 03/20/15) Home Medications Amlodipine Besylate 5 Mg Tablet, 5 MG PO DAILY, (Reported) Cholecalciferol (Vitamin D3) 2,000 Unit Capsule, 2,000 UNIT PO HS, (Reported) Diclofenac Sodium 75 Mg Tablet.dr, 75 MG PO BID, (Reported) Doxycycline Hyclate 100 Mg Capsule, 100 MG PO BID Prescribed by: JESSE ALBERTS on 08/07/171944 Duloxetine Hcl 30 Mg Cap, 30 MG PO DAILY, (Reported) Estradiol 0.5 Mg Tablet, 0.5 MG PO DAILY, (Reported) Ezetimibe 10 Mg Tablet, 10 MG PO DAILY, (Reported) Fenofibrate Nanocrystallized 145 Mg Tablet, 145 MG PO DAILY, (Reported) Fluticasone/Salmeterol 12 Gm Hfa.aer.ad, 2 PUFF IH BID@ Prescribed by: SHYAM NORIEGA on 11/04/16945 Folic Acid 1 Mg Tablet, 1 MG PO DAILY, (Reported) Gabapentin 100 Mg Capsule, 200 MG PO DAILY, (Reported) TAKES 2 (100MG) CAPSULES Gabapentin 100 Mg Capsule, 300 MG PO HS, (Reported) TAKES 3 (100MG) CAPSULES Hydrocodone Bit/Acetaminophen 1 Each Tablet, 1 TAB PO BID, (Reported) Hydrocodone/Acetaminophen 1 Each Tablet, 1 TAB PO Q6H PRN for MODERATE PAIN, ( Reported) Hyoscyamine Sulfate 0.375 Mg Tab.er.12h, 0.375 MG PO BID, (Reported) Infliximab 100 Mg Soln, 300 MG IV EVERY 8 WEEKS, (Reported) Lactobacillus Combination No.9 1 Each Capsule, 1 EACH PO TID Prescribed by: SHYAM NORIEGA on 11/04/16945 Levofloxacin 500 Mg Tablet, 500 MG PO DAILY Prescribed by: SHYAM NORIEGA on 11/04/16945 Methotrexate Sodium 2.5 Mg Tablet, 15 MG PO We, (Reported) TAKES 6 (2.5MG) TABLETS Nitrofurantoin Macrocrystal 50 Mg Capsule, 50 MG PO HS, (Reported) Olmesartan Medoxomil 40 Mg Tablet, 40 MG PO DAILY, (Reported) Omeprazole 20 Mg Capsule.dr, 20 MG PO BID, (Reported) Ropinirole Hcl 0.5 Mg Tablet, 0.5 MG PO HS, (Reported) Past Hbbbuwj-Wxtptg-Byyinh Hx Patient Social History Alcohol Use: Denies Use Recreational Drug Use: No Smoking Status: Never a Smoker 2nd Hand Smoke Exposure: No Recent Foreign Travel: No Contact w/Someone Who Travel: No Recent Infectious Disease Expo: No Recent Hopitalizations: No Immunizations Up To Date Tetanus Booster (TDap): Less than 5yrs PED Vaccines UTD: No Date of Pneumonia Vaccine: Nov 02, 2012 Date of Influenza Vaccine: Jun 19, 2016 Seasonal Allergies Seasonal Allergies: No Surgeries History of Surgeries: Yes (R TOTAL HIP L AND R SURGERY ON KNEES) Surgeries: Breast, Gallbladder, Hysterectomy, Joint Replacement, Orthopedic, Renal Respiratory History of Respiratory Disorde: No Cardiovascular History of Cardiac Disorders: Yes Cardiac Disorders: High Cholesterol, Hypertension Neurological History of Neurological Disord: No 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 System Hx 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 Disorders: No Sexually Transmitted Disease: No HIV/AIDS: No Female 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 Disorders: 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 Genitourinary History of Genitourinary Disor: Yes Genitourinary Disorders: Kidney Stones, UTI-Chronic Gastrointestinal History of Gastrointestinal Di: Yes Gastrointestinal Disorders: Diverticulosis Musculoskeletal History of Musculoskeletal Dis: Yes (march 03 brucitis sack removed from left knee, right femur repair) Musculoskeletal Disorders: Arthritis, Rheumatoid Arthritis Endocrine History of Endocrine Disorders: No HEENT Loss of Vision: Denies Hearing Impairment: Denies Cancer History of Cancer: No Psychosocial History of Psychiatric Problem: No Integumentary History of Skin or Integumenta: No Blood Transfusions History of Blood Disorders: No Adverse Reaction to a Blood Tr: No Family Medical History Significant Family History: Heart Disease, Other Conditions/Hx Family Medial History: Alzheimer's disease G8 BROTHER G8 SISTER Arthritis G8 BROTHER Cataracts G8 SISTER Dementia G8 SISTER Fibrocystic disease of breast G8 SISTER Hypertension 19 FATHER 19 MOTHER G8 BROTHER G8 BROTHER G8 SISTER G8 SISTER Kidney disease G8 BROTHER No Family History of: AIDS Abdominal aortic aneurysm [place]'s disease Alcoholism Aphasia Asthma Cancer of mouth Cardiovascular disease Colon cancer Completed stroke Congenital disease Congenital heart disease Coronary thrombosis Cystic fibrosis Diabetes mellitus Drug abuse Dysphasia Gastroenteritis Glaucoma Headache disorder Hypercholesterolemia Infertility Myocardial infarction Neoplasm Not obtainable due to adoption Osteoporosis Parkinson's disease Prostate cancer Psychosocial problem Respiratory disorder Seizure disorder Severe allergy Thyroid disease Tuberculosis Visual disorder Physical Exam Vital Signs Vital Signs - First Documented 11/26/17 09:50 Temp 97.2 Pulse 81 Resp 18 B/P (MAP) 147/80 (102) Pulse Ox 96 O2 Delivery Mechanical Ventilator Capillary Refill : Less Than 3 Seconds Progress/Results/Core Measures Results/Orders My Orders Orders - JULEE AVENDAÑO DO Ct Head/Cervical Spine Wo (11/26/17 09:59) Chest 1 View, Ap/Pa Only (11/26/17 09:59) Shoulder, Left, 3 Views (11/26/17 09:59) Knee, Left, 3 Views (11/26/17 09:59) Pelvis With Left Hip 2-3 Views (11/26/17 09:59) Vital Signs/I&O Vital Sign - Last 12Hours 11/26/17 09:50 Temp 97.2 Pulse 81 Resp 18 B/P (MAP) 147/80 (102) Pulse Ox 96 O2 Delivery Mechanical Ventilator Blood Pressure Mean: 102 Departure Impression Impression: Primary Impression: Status post fall Additional Impressions: Contusion of left knee Contusion of left shoulder Minor head injury without loss of consciousness CERVICAL STRAIN EXACERBATION OF CHRONIC NECK PAIN EXACERBATION OF CHRONIC KNEE PAIN Disposition: 01 HOME, SELF-CARE Condition: Stable Departure-Patient Inst. Referrals: SHYAM NORIEGA MD (PCP/Family) Primary Care Physician Patient Instructions: Chronic Knee Pain (DC), Chronic Neck Pain (DC), Contusion (DC), Minor Head Injury (DC) Add. Discharge Instructions: ICE TO SORE AREAS AT 20 MINUTE INTERVALS KUNAL WRAP TO KNEE NEEDED FOR PAIN AND SWELLING USE YOUR WALKER AT ALL TIMES TAKE YOUR HOME PAIN MEDICATIONS NEEDED FOR PAIN FOLLOW UP WITH YOUR ORTHOPEDIC SURGEON IN 1 WEEK IF NO BETTER All discharge instructions reviewed with patient and/or family. Voiced understanding. JULEE AVENDAÑO DO Nov 26, 2017 11:24
[2017-11-26 11:46] VITALS: BP 147/80
--- OUTSIDE RECORDS SUMMARY | 2017-11-27 08:01 | XMS REPORT | CCD ---
Author Author [facility] Organization [facility] Address [address] [place] [address] Phone Care Team Providers Care [place] Polisher Name Role Phone PP Unavailable CCM Unavailable Summary Purpose Interface Exchange Insurance Providers Payer name Policy type / Coverage type Covered libertarian ID Effective Begin Date Effective End Date WPS Medicare Part B [id number] 2014 Unknown [email or web address] [id number] 2014 Unknown Family history Mother Diagnosis Age At Onset No Family Disease Entered N/A Father Diagnosis Age At Onset No Family Disease Entered N/A Social History Social History Element Codes Description Effective Dates Marital status Unknown 08/18/2011 Employment Unknown 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 08/18/[address]: 312677284 Nonsmoker 08/18/[address]: 407330 Currently drinks alcohol 08/18/2011 Frequency of drinks SNOMED CT: 731589592 Drinks rarely rum occasionally 08/18/2011 Allergies, Adverse Reactions, Alerts Substance Reaction Codes Entered Date Inactivated Date Status OXYTOCIN nausea Unknown 05/21/2011 No Inactive Date Active Past Medical History Illness Codes Condition Status Onset Date Resolved Date Cellulitis of left finger ICD-9: 681.00 ICD-10: L03.012 Active 08/08/2017 Unknown Dysuria ICD-9: 788.1 ICD-10: R30.0 Active 06/10/2017 Unknown Essential (primary) hypertension ICD-9: 401.9 ICD-10: I10 Active 05/19/2016 Unknown Other fatigue ICD-9: 780.79 ICD-10: R53.83 Active 06/10/2017 Unknown Other insomnia ICD-9: 780.52 ICD-10: G47.09 Active 06/10/2017 Unknown Rash and other nonspecific skin eruption ICD-9: 782.1 ICD-10: R21 Active 03/04/2017 Unknown Vitamin B12 deficiency anemia, unspecified ICD-9: 281.1 ICD-10: D51.9 Active 06/10/2017 Unknown Encounter for general adult medical examination with abnormal findings ICD-9: V70.0 ICD-10: Z00.01 Active 12/17/2016 Unknown Cough ICD-9: 786.2 ICD-10: R05 Active 09/26/2016 Unknown Pain in left shoulder ICD-9: 719.41 ICD-10: M25.512 Active 11/18/2016 Unknown Pneumonia, unspecified organism ICD-9: 486 ICD-10: J18.9 Active 11/11/2016 Unknown Hypoxemia ICD-9: 799.02 ICD-10: R09.02 Active 11/11/2016 Unknown Encounter for gynecological examination (general) (routine ) without abnormal findings ICD-9: V72.31 ICD-10: Z01.419 Active 06/20/2016 Unknown Encounter for immunization ICD-9: V04.81 ICD-10: Z23 Active 06/20/2016 Unknown Myalgia ICD-9: 729.1 ICD-10: M79.1 Active 05/19/2016 Unknown Pressure ulcer of right buttock, stage 2 ICD-9: 707.05 ICD-10: L89.312 Active 05/19/2016 Unknown Unilateral primary osteoarthritis, right knee ICD-9: 715.16 ICD-10: M17.11 Active 01/25/2016 Unknown Cutaneous abscess of left upper limb ICD-9: 682.3 ICD-10: L02.414 Active 11/11/2015 Unknown Localized edema ICD-9 : 782.3 ICD-10: R60.0 Active 07/22/2014 Unknown Pain in leg, unspecified ICD-9: 729.5 ICD-10: M79.606 Active 09/24/2014 Unknown Primary generalized (osteo)arthritis ICD-9: 715.09 ICD-10: M15.0 Active 07/21/2015 Unknown VACCIN STREP PNEUMONIAE ICD-9: V03.82 ICD-10: Z23 Active 07/20/2015 Unknown Presence of surgical incision ICD-9: V49.89 Active 05/19/2015 Unknown Irritable bowel ICD-9 : 564.1 Active 10/08/2014 Unknown Abdominal pain ICD-9: 789.00 Active 09/24/2014 Unknown Back pain ICD-9: 724.5 Active 09/24/2014 Unknown Diarrhea ICD-9: 787.91 Active 09/24/2014 Unknown ESSENTIAL HYPERTENSION ICD-9: 401.9 Active 09/24/2014 Unknown Leg cramps ICD-9: 729.82 Active 09/24/2014 Unknown Leg pain ICD-9: 729.5 Active 09/24/2014 Unknown Need for tetanus booster ICD-9: V03.7 Active 09/05/2014 Unknown Edema ICD-9: 782.3 Active 07/22/2014 Unknown Varicose veins ICD-9: 454.9 Active 07/22/2014 Unknown OTH SCREENING MAMMOGRAM ICD-9: V76.12 Active 06/13/2014 Unknown Diverticulosis ICD-9: 562.10 Active 01/11/2014 Unknown Nausea and vomiting ICD-9: 787.01 Active 10/30/2013 Unknown Tinea cruris ICD-9: 110.3 Active 09/25/2013 Unknown Abnormal glucose ICD-9 : 790.29 Active 08/20/2013 Unknown Fatigue ICD-9: 780.79 Active 08/20/2013 Unknown Insomnia ICD-9: 780.52 Active 08/20/2013 Unknown Cervicalgia ICD-9: 723.1 Active 07/06/2013 Unknown Musculoskeletal disorder and symptoms referable to neck ICD-9: 723.9 Active 07/06/2013 Unknown Spasm of muscle ICD-9 : 728.85 Active 07/06/2013 Unknown Health examination of defined subpopulation ICD-9: V70.5 Active 04/30/2013 Unknown Abnormal thyroid blood test ICD-9: 794.5 Active 10/26/2012 Unknown Abnormal thyroid exam ICD-9: 246.9 Active 10/26/2012 Unknown Thinning hair ICD-9: 704.00 Active 10/26/2012 Unknown Unspecified deficiency anemia ICD-9: 281.9 Active 10/26/2012 Unknown VAC STREP PNEUMONIAE-FLU ICD-9: V06.6 Active 06/28/2012 Unknown Bibasilar crackles ICD -9: 786.7 Active 05/09/2012 Unknown Acute pharyngitis ICD- 9: 462 Active 01/31/2012 Unknown Urinary tract infection ICD-9: 599.0 Active 12/29/2011 Unknown Abnormal bruising ICD- 9: 782.9 Active 12/20/2011 Unknown NSAID long-term use ICD-9: V58.64 Active 12/20/2011 Unknown Hypertension Unknown Active 08/31/2011 Unknown Fall on same level from slipping, tripping, or stumbling ICD-9: E885.9 Active 08/31/2011 Unknown Hip pain, right ICD-9 : 719.45 Active 08/31/2011 Unknown Sciatica Unknown Active 08/17/2011 Unknown Sciatica ICD-9: 724.3 Active 08/17/2011 Unknown ACUTE PYELONEPHRITIS ICD-9: 590.10 Active 05/21/2011 Unknown Allergic rhinitis ICD- 9: 477.9 Active 05/21/2011 Unknown Cervical dysplasia ICD -9: 622.10 Active 05/21/2011 Unknown GENERAL OSTEOARTHROSIS-MULT ICD-9: 715.09 Active 05/21/2011 Unknown HLD (hyperlipidemia) ICD-9: 272.4 Active 05/21/2011 Unknown Lumbago ICD-9: 724.2 Active 05/21/2011 Unknown RENAL & URETERAL DIS NOS ICD-9: 593.9 Active 05/21/2011 Unknown Problems Condition Codes Effective Dates Condition Status Cellulitis of left finger ICD-9: 681.00 ICD-10: L03.012 08/08/2017 Active Dysuria ICD-9: 788.1 ICD-10: R30.0 06/10/2017 Active Essential (primary) hypertension ICD-9: 401.9 ICD-10: I10 05/19/2016 Active Other fatigue ICD-9: 780.79 ICD-10: R53.83 06/10/2017 Active Other insomnia ICD-9: 780.52 ICD-10: G47.09 06/10/2017 Active Rash and other nonspecific skin eruption ICD-9: 782.1 ICD-10: R21 03/04/2017 Active Vitamin B12 deficiency anemia, unspecified ICD-9: 281.1 ICD-10: D51.9 06/10/2017 Active Encounter for general adult medical examination with abnormal findings ICD-9: V70.0 ICD-10: Z00.01 12/17/2016 Active Cough ICD-9: 786.2 ICD-10: R05 09/26/2016 Active Pain in left shoulder ICD-9: 719.41 ICD-10: M25.512 11/18/2016 Active Pneumonia, unspecified organism ICD-9: 486 ICD-10: J18.9 11/11/2016 Active Hypoxemia ICD-9: 799.02 ICD-10: R09.02 11/11/2016 Active Encounter for gynecological examination (general) (routine ) without abnormal findings ICD-9: V72.31 ICD-10: Z01.419 06/20/2016 Active Encounter for immunization ICD-9: V04.81 ICD-10: Z23 06/20/2016 Active Myalgia ICD-9: 729.1 ICD-10: M79.1 05/19/2016 Active Pressure ulcer of right buttock, stage 2 ICD-9: 707.05 ICD-10: L89.312 05/19/2016 Active Unilateral primary osteoarthritis, right knee ICD-9: 715.16 ICD-10: M17.11 01/25/2016 Active Cutaneous abscess of left upper limb ICD-9: 682.3 ICD-10: L02.414 11/11/2015 Active Localized edema ICD-9 : 782.3 ICD-10: R60.0 07/22/2014 Active Pain in leg, unspecified ICD-9: 729.5 ICD-10: M79.606 09/24/2014 Active Primary generalized (osteo)arthritis ICD-9: 715.09 ICD-10: M15.0 07/21/2015 Active VACCIN STREP PNEUMONIAE ICD-9: V03.82 ICD-10: Z23 07/20/2015 Active Presence of surgical incision ICD-9: V49.89 05/19/2015 Active Irritable bowel ICD-9 : 564.1 10/08/2014 Active Abdominal pain ICD-9: 789.00 09/24/2014 Active Back pain ICD-9: 724.5 09/24/2014 Active Diarrhea ICD-9: 787.91 09/24/2014 Active ESSENTIAL HYPERTENSION ICD-9: 401.9 09/24/2014 Active Leg cramps ICD-9: 729.82 09/24/2014 Active Leg pain ICD-9: 729.5 09/24/2014 Active Need for tetanus booster ICD-9: V03.7 09/05/2014 Active Edema ICD-9: 782.3 07/22/2014 Active Varicose veins ICD-9: 454.9 07/22/2014 Active OTH SCREENING MAMMOGRAM ICD-9: V76.12 06/13/2014 Active Diverticulosis ICD-9: 562.10 01/11/2014 Active Nausea and vomiting ICD-9: 787.01 10/30/2013 Active Tinea cruris ICD-9: 110.3 09/25/2013 Active Abnormal glucose ICD-9 : 790.29 08/20/2013 Active Fatigue ICD-9: 780.79 08/20/2013 Active Insomnia ICD-9: 780.52 08/20/2013 Active Cervicalgia ICD-9: 723.1 07/06/2013 Active Musculoskeletal disorder and symptoms referable to neck ICD-9: 723.9 07/06/2013 Active Spasm of muscle ICD-9 : 728.85 07/06/2013 Active Health examination of defined subpopulation ICD-9: V70.5 04/30/2013 Active Abnormal thyroid blood test ICD-9: 794.5 10/26/2012 Active Abnormal thyroid exam ICD-9: 246.9 10/26/2012 Active Thinning hair ICD-9: 704.00 10/26/2012 Active Unspecified deficiency anemia ICD-9: 281.9 10/26/2012 Active VAC STREP PNEUMONIAE-FLU ICD-9: V06.6 06/28/2012 Active Bibasilar crackles ICD -9: 786.7 05/09/2012 Active Acute pharyngitis ICD- 9: 462 01/31/2012 Active Urinary tract infection ICD-9: 599.0 12/29/2011 Active Abnormal bruising ICD- 9: 782.9 12/20/2011 Active NSAID long-term use ICD-9: V58.64 12/20/2011 Active Hypertension Unknown 08/31/2011 Active Fall on same level from slipping, tripping, or stumbling ICD-9: E885.9 08/31/2011 Active Hip pain, right ICD-9 : 719.45 08/31/2011 Active Sciatica Unknown 08/17/2011 Active Sciatica ICD-9: 724.3 08/17/2011 Active ACUTE PYELONEPHRITIS ICD-9: 590.10 05/21/2011 Active Allergic rhinitis ICD- 9: 477.9 05/21/2011 Active Cervical dysplasia ICD -9: 622.10 05/21/2011 Active GENERAL OSTEOARTHROSIS-MULT ICD-9: 715.09 05/21/2011 Active HLD (hyperlipidemia) ICD-9: 272.4 05/21/2011 Active Lumbago ICD-9: 724.2 05/21/2011 Active RENAL & URETERAL DIS NOS ICD-9: 593.9 05/21/2011 Active Medications Medication Codes Instructions Start Date Stop Date Status Fill Instructions cyclobenzaprine 10 mg tablet RxNorm: 708535 1 Tablet(s) PO TID as needed 10/27/2017 11/15/2017 Active Diflucan 150 mg tablet RxNorm: 421776 1 Tablet(s) PO every other day 10/18/2017 10/31/2017 Active diclofenac sodium 75 mg tablet,delayed release RxNorm: 651004 TAKE TWO TABLETS BY MOUTH TWICE A DAY 10/17/2017 02/13/2018 Active diclofenac sodium 75 mg tablet,delayed release RxNorm: 191602 TAKE TWO TABLETS BY MOUTH TWICE A DAY 10/17/2017 10/16/2017 Inactive hydrocodone 10 mg-acetaminophen 325 mg tablet RxNorm: 322553 1 Tablet(s) PO Q4 PRN TAKE ONE TABLET BY MOUTH EVERY 4 HOURS NEEDED FOR PAIN 09/20/2017 10/19/2017 Inactive amlodipine 5 mg tablet RxNorm: 448147 TAKE ONE TABLET BY MOUTH DAILY 09/20/2017 03/18/2018 Active mupirocin 2 % topical ointment RxNorm: 876826 1 Application TOP BID 09/16/2017 No Stop Date Active ceftriaxone 500 mg solution for injection RxNorm: 4005043 1 Gram(s) Inj 09/14/2017 09/14/2017 Inactive Cymbalta 30 mg capsule,delayed release RxNorm: 221102 TAKE ONE CAPSULE BY MOUTH DAILY 08/15/2017 11/07/2018 Active clindamycin 300 mg capsule RxNorm: 586620 1 Capsule(s) PO TID 08/10/2017 08/16/2017 Inactive clindamycin 300 mg capsule RxNorm: 795481 1 Capsule(s) PO TID 08/10/2017 08/09/2017 Inactive ceftriaxone 500 mg solution for injection RxNorm: 5888663 Inj 08/09/2017 08/09/2017 Inactive Bactrim DS 800 mg-160 mg tablet RxNorm: 627264 1 Tablet(s) PO BID 08/09/2017 08/15/2017 Inactive ER CHANGED BASED ON CULTURE REPORT trazodone 50 mg tablet RxNorm: 706122 1.5 Tablet(s) PO QHS 02/03/2018 Active Requip 0.5 mg tablet RxNorm: 238452 1 Tablet(s) PO QHS TAKE ONE TABLET BY MOUTH DAILY 08/08/2017 02/03/2018 Active ceftriaxone 500 mg solution for injection RxNorm: 6985439 1 Milliliter(s) Inj 08/08/2017 08/08/2017 Inactive hydrocodone 10 mg-acetaminophen 325 mg tablet RxNorm: 681999 1 Tablet(s) PO Q4 PRN TAKE ONE TABLET BY MOUTH EVERY 4 HOURS NEEDED FOR PAIN 08/08/2017 09/06/2017 Inactive Phenergan-Codeine 6.25 mg-10 mg/5 mL syrup RxNorm: 546929 5 Milliliter(s) PO Q6 as needed cough 07/20/2017 No Stop Date Active trazodone 50 mg tablet RxNorm: 147367 1/2-1 Tablet(s) PO QHS 08/07/2017 Inactive 1/2 TO 1 tablet, NOT 1.5 tablet diclofenac sodium 75 mg tablet,delayed release RxNorm: 343657 TAKE TWO TABLETS BY MOUTH TWICE A DAY 06/28/2017 08/26/2017 Inactive Voltaren 1 % topical gel RxNorm: 279527 APPLY TOPICALLY FOUR TIMES A DAY 06/24/2017 06/18/2018 Active prednisone 20 mg tablet RxNorm: 003330 2 Tablet(s) PO daily 11/201606/20/2017 Inactive ketoconazole 2 % topical cream RxNorm: 109927 1 Application TOP BID 06/21/2017 06/30/2017 Inactive right neck and groin ketoconazole 2 % topical cream RxNorm: 073648 1 Application TOP BID 06/21/2017 06/20/2017 Inactive right neck and groin hydrocodone 10 mg-acetaminophen 325 mg tablet RxNorm: 561708 1 Tablet(s) PO Q4 PRN TAKE ONE TABLET BY MOUTH EVERY 4 HOURS NEEDED FOR PAIN 06/21/2017 07/20/2017 Inactive prednisone 20 mg tablet RxNorm: 817894 2 Tablet(s) PO daily 11/201606/25/2017 Inactive Augmentin 500 mg-125 mg tablet RxNorm: 565920 1 Tablet(s) PO TID 06/13/2017 06/12/2017 Inactive take probiotice BID x7 Augmentin 500 mg-125 mg tablet RxNorm: 241542 1 Tablet(s) PO TID 06/13/2017 06/19/2017 Inactive take probiotice BID x7 triamcinolone acetonide 0.5 % topical cream RxNorm: 9851664 1 Application TOP BID 06/10/2017 06/19/2017 Inactive trazodone 50 mg tablet RxNorm: 811457 1/2-1 Tablet(s) PO QHS 07/13/2017 Inactive hydrocodone 10 mg-acetaminophen 325 mg tablet RxNorm: 737225 1 Tablet(s) PO Q4 PRN TAKE ONE TABLET BY MOUTH EVERY 4 HOURS NEEDED FOR PAIN 04/08/2017 05/07/2017 Inactive Benicar 40 mg tablet RxNorm: 867884 TAKE ONE TABLET BY MOUTH DAILY 03/16/2017 12/10/2017 Active acyclovir 800 mg tablet RxNorm: 133686 TAKE ONE TABLET BY MOUTH FOUR TIMES A DAY 03/16/2017 03/25/2017 Inactive Bactrim DS 800 mg-160 mg tablet RxNorm: 954027 1 Tablet(s) PO BID 03/07/2017 03/13/2017 Inactive Bactrim DS 800 mg-160 mg tablet RxNorm: 630690 1 Tablet(s) PO BID 03/07/2017 03/06/2017 Inactive mupirocin 2 % topical ointment RxNorm: 712653 1 Application TOP BID 03/07/2017 03/06/2017 Inactive mupirocin 2 % topical ointment RxNorm: 902617 1 Application TOP BID 03/07/2017 03/16/2017 Inactive acyclovir 800 mg tablet RxNorm: 853417 1 Tablet(s) PO QID 03/0403/13/2017 Inactive Keflex 500 mg capsule RxNorm: 503077 1 Capsule(s) PO TID 201603/06/2017 Inactive amlodipine 5 mg tablet RxNorm: 769384 TAKE ONE TABLET BY MOUTH DAILY 02/22/2017 08/20/2017 Inactive gabapentin 100 mg capsule RxNorm: 930783 TAKE TWO CAPSULES BY MOUTH EVERY MORNING AND TAKE THREE CAPSULES BY MOUTH EVERY EVENING NEEDED 02/01/2018 Active Macrodantin 50 mg capsule RxNorm: 383504 TAKE ONE CAPSULE BY MOUTH DAILY 02/07/2017 02/01/2018 Active Cymbalta 30 mg capsule,delayed release RxNorm: 283203 TAKE ONE CAPSULE BY MOUTH DAILY 02/07/2017 08/05/2017 Inactive Requip 0.5 mg tablet RxNorm: 194607 TAKE ONE TABLET BY MOUTH DAILY 01/21/2017 02/17/2017 Inactive estradiol 0.5 mg tablet RxNorm: 577600 Tablet(s) TAKE ONE-HALF TABLET BY MOUTH TWO TIMES A DAY 01/18/2017 01/12/2018 Active fenofibrate nanocrystallized 145 mg tablet RxNorm: 715323 TAKE ONE TABLET BY MOUTH DAILY 01/18/2017 01/12/2018 Active Zetia 10 mg tablet RxNorm: 185124 TAKE ONE TABLET BY MOUTH DAILY 01/18/2017 01/12/2018 Active Zetia 10 mg tablet RxNorm: 594400 TAKE ONE TABLET BY MOUTH DAILY 01/18/2017 01/17/2017 Inactive hyoscyamine ER 0.375 mg tablet,extended release,12 hr RxNorm: 6081193 TAKE ONE TABLET BY MOUTH TWICE A DAY 01/10/2017 Inactive Flonase 50 mcg/actuation nasal spray,suspension RxNorm: 3731449 1 Rex NASAL each nare daily 12/17/2016 04/15/2017 Inactive [SAVINGS FOR UNINSURED PATIENTS -- BIN:[id number], PCN: ASPROD1, Group: [id number], ID# [id number], Process claim through [employer], for questions: . THIS IS NOT INSURANCE.] Voltaren 1 % topical gel RxNorm: 554825 APPLY TOPICALLY FOUR TIMES A DAY 12/17/2016 03/26/2017 Inactive hydrocodone 10 mg-acetaminophen 325 mg tablet RxNorm: 917830 1 Tablet(s) PO Q4 PRN TAKE ONE TABLET BY MOUTH EVERY 4 HOURS NEEDED FOR PAIN 12/17/2016 01/15/2017 Inactive (Appended: Controlled substance eRx refill - RxReferenceNumber: [id number]) diclofenac sodium 75 mg tablet,delayed release RxNorm: 498233 TAKE TWO TABLETS BY MOUTH TWICE A DAY 11/22/2016 05/20/2017 Inactive Cymbalta 30 mg capsule,delayed release RxNorm: 434891 TAKE ONE CAPSULE BY MOUTH DAILY 11/22/2016 02/06/2017 Inactive albuterol sulfate 2.5 mg/0.5 mL solution for nebulization RxNorm: 988149 3 Milliliter(s) INH Q4 PRN 11/11/2016 No Stop Date Active Levaquin 500 mg tablet RxNorm: 756356 1 Tablet(s) PO daily 11/15/2016 Inactive Zetia 10 mg tablet RxNorm: 773742 TAKE ONE TABLET BY MOUTH DAILY 10/21/2016 10/27/2016 Inactive fenofibrate nanocrystallized 145 mg tablet RxNorm: 978834 TAKE ONE TABLET BY MOUTH DAILY 10/21/2016 01/17/2017 Inactive estradiol 0.5 mg tablet RxNorm: 522415 TAKE ONE-HALF TABLET BY MOUTH TWO TIMES A DAY 10/20/2016 01/17/2017 Inactive Kenalog 40 mg/mL suspension for injection RxNorm: 7205609 Milliliter(s) Inj 09/27/2016 09/27/2016 Inactive hydrocodone 10 mg-acetaminophen 325 mg tablet RxNorm: 656358 1 Tablet(s) PO Q4 PRN TAKE ONE TABLET BY MOUTH EVERY 4 HOURS NEEDED FOR PAIN 09/21/2016 10/20/2016 Inactive (Appended: Controlled substance eRx refill - RxReferenceNumber: [id number]) Flonase 50 mcg/actuation nasal spray,suspension RxNorm: 7045184 1 Rex NASAL each nare daily 09/03/2016 12/16/2016 Inactive [SAVINGS FOR UNINSURED PATIENTS -- BIN:[id number], PCN: ASPROD1, Group: [id number], ID# [id number], Process claim through [employer], for questions: . THIS IS NOT INSURANCE.] amlodipine 5 mg tablet RxNorm: 847592 TAKE ONE TABLET BY MOUTH DAILY 08/19/2016 02/14/2017 Inactive Cymbalta 30 mg capsule,delayed release RxNorm: 226105 TAKE ONE CAPSULE BY MOUTH DAILY 08/17/2016 11/21/2016 Inactive Requip 0.5 mg tablet RxNorm: 296901 TAKE ONE TABLET BY MOUTH DAILY 07/22/2016 07/31/2016 Inactive scopolamine 1.5 mg transdermal patch (1 mg over 3 days) RxNorm: 081623 2 Patch TD q 3 days 07/09/2016 No Stop Date Active scopolamine 1.5 mg transdermal patch (1 mg over 3 days) RxNorm: 844836 2 Patch TD q 3 days 07/09/2016 07/08/2016 Inactive hydrocodone 10 mg-acetaminophen 325 mg tablet RxNorm: 582238 1 Tablet(s) PO Q4 PRN TAKE ONE TABLET BY MOUTH EVERY 4 HOURS NEEDED FOR PAIN 05/20/2016 06/18/2016 Inactive (Appended: Controlled substance eRx refill - RxReferenceNumber: [id number]) Cymbalta 30 mg capsule,delayed release RxNorm: 473197 1 Capsule(s) PO daily 05/20/2016 05/20/2016 Inactive fenofibrate nanocrystallized 145 mg tablet RxNorm: 502725 1 Tablet(s) PO daily 04/29/2016 10/20/2016 Inactive estradiol 0.5 mg tablet RxNorm: 066461 TAKE ONE-HALF TABLET BY MOUTH TWO TIMES A DAY 04/27/2016 10/19/2016 Inactive Zetia 10 mg tablet RxNorm: 030006 TAKE ONE TABLET BY MOUTH DAILY 04/16/2016 10/12/2016 Inactive diclofenac sodium 75 mg tablet,delayed release RxNorm: 189350 2 Tablet(s) PO BID 03/25/2016 07/22/2016 Inactive Benicar 40 mg tablet RxNorm: 943922 1 Tablet(s) PO daily 201503/15/2017 Inactive ok to dispense generic if available hydrocodone 10 mg-acetaminophen 325 mg tablet RxNorm: 752988 1 Tablet(s) PO Q4 PRN TAKE ONE TABLET BY MOUTH EVERY 4 HOURS NEEDED FOR PAIN 03/25/2016 04/23/2016 Inactive (Appended: Controlled substance eRx refill - RxReferenceNumber: [id number]) amlodipine 5 mg tablet RxNorm: 912142 TAKE ONE TABLET BY MOUTH DAILY 02/09/2016 08/06/2016 Inactive Benicar 40 mg tablet RxNorm: 936042 1 Tablet(s) PO daily 201503/24/2016 Inactive ok to dispense generic if available hydrocodone 10 mg-acetaminophen 325 mg tablet RxNorm: 524526 1 Tablet(s) PO Q4 PRN TAKE ONE TABLET BY MOUTH EVERY 4 HOURS NEEDED FOR PAIN 01/26/2016 03/24/2016 Inactive (Appended: Controlled substance eRx refill - RxReferenceNumber: [id number]) gabapentin 100 mg capsule RxNorm: 916907 TAKE TWO CAPSULES BY MOUTH EVERY MORNING AND TAKE THREE CAPSULES BY MOUTH EVERY EVENING NEEDED 11/201502/06/2017 Inactive Zetia 10 mg tablet RxNorm: 964735 TAKE ONE TABLET BY MOUTH DAILY 01/20/2016 04/15/2016 Inactive hyoscyamine ER 0.375 mg tablet,extended release,12 hr RxNorm: 8537783 TAKE ONE TABLET BY MOUTH TWICE A DAY 12/30/201505/2016 Inactive Voltaren 1 % topical gel RxNorm: 672599 APPLY TOPICALLY FOUR TIMES A DAY 12/09/2015 08/04/2016 Inactive doxycycline hyclate 100 mg capsule RxNorm: 9073448 1 Capsule(s) PO BID 11/12/2015 11/21/2015 Inactive Macrodantin 50 mg capsule RxNorm: 311882 1 Capsule(s) PO daily 11/07/2015 01/29/2017 Inactive [SAVINGS FOR UNINSURED PATIENTS -- BIN:303037, PCN: ASPROD1, Group: [id number], ID# [id number], Process claim through [employer], for questions: [phone]. THIS IS NOT INSURANCE.] Requip 0.5 mg tablet RxNorm: 810865 1 Tablet(s) PO daily TAKE ONE TABLET BY MOUTH DAILY 11/06/2015 07/21/2016 Inactive Mobic 15 mg tablet RxNorm: 304672 TAKE ONE TABLET BY MOUTH EVERY DAY 10/21/2015 01/25/2016 Inactive estradiol 0.5 mg tablet RxNorm: 938459 TAKE ONE-HALF TABLET BY MOUTH TWO TIMES A DAY 10/20/2015 04/16/2016 Inactive hydrocodone 10 mg-acetaminophen 325 mg tablet RxNorm: 556158 1 Tablet(s) PO Q4 PRN TAKE ONE TABLET BY MOUTH EVERY 4 HOURS NEEDED FOR PAIN 09/29/2015 11/27/2015 Inactive (Appended: Controlled substance eRx refill - RxReferenceNumber: [id number]) Benicar 40 mg tablet RxNorm: 498458 1 Tablet(s) PO daily 201501/25/2016 Inactive [SAVINGS FOR NON-COVERED DRUGS -- BIN:530665, PCN: ASPROD1, Group: XXXXX, ID # [id number], Questions: . THIS IS NOT INSURANCE.] Benicar 40 mg tablet RxNorm: 697243 1/2 Tablet(s) PO daily 09/22/2015 Inactive [SAVINGS FOR NON-COVERED DRUGS -- BIN:092444, PCN: ASPROD1, Group: XXXXX, ID# [id number], Questions: . THIS IS NOT INSURANCE.] scopolamine 1.5 mg transdermal patch (1 mg over 3 days) RxNorm: 017539 1 Patch TD q72 hours 09/09/2015 05/18/2016 Inactive scopolamine 1.5 mg transdermal patch (1 mg over 3 days) RxNorm: 614052 1 TD q72 hours 09/09/2015 09/08/2015 Inactive Requip 0.5 mg tablet RxNorm: 978017 1 Tablet(s) PO daily TAKE ONE TABLET BY MOUTH DAILY 08/22/2015 11/05/2015 Inactive hydrocodone 10 mg-acetaminophen 325 mg tablet RxNorm: 274543 1 Tablet(s) PO Q4 PRN TAKE ONE TABLET BY MOUTH EVERY 4 HOURS NEEDED FOR PAIN 08/22/2015 09/28/2015 Inactive (Appended: Controlled substance eRx refill - RxReferenceNumber: [id number]) fenofibrate nanocrystallized 145 mg tablet RxNorm: 174444 1 Tablet(s) PO daily 08/22/2015 02/17/2016 Inactive amlodipine 5 mg tablet RxNorm: 958597 1 Tablet(s) PO daily 12/201402/08/2016 Inactive gabapentin 100 mg capsule RxNorm: 297605 Capsule(s) PO TAKE THREE CAPSULE PO IN THE AM, 1 AT NOON AND 3 PO IN THE PIOTR 07/21/2015 No Stop Date Active [SAVINGS FOR NON-COVERED DRUGS -- BIN:893569, PCN: ASPROD1, Group: XXXXX, ID# [id number], Questions: . THIS IS NOT INSURANCE.] Zetia 10 mg tablet RxNorm: 101448 1 Tablet(s) PO daily 201401/16/2016 Inactive hydrocodone 10 mg-acetaminophen 325 mg tablet RxNorm: 290681 1 Tablet(s) PO Q4 PRN TAKE ONE TABLET BY MOUTH EVERY 4 HOURS NEEDED FOR PAIN 07/21/2015 08/21/2015 Inactive (Appended: Controlled substance eRx refill - RxReferenceNumber: [id number]) Requip 0.5 mg tablet RxNorm: 692499 TAKE ONE TABLET BY MOUTH DAILY 06/24/2015 08/21/2015 Inactive Benicar 40 mg tablet RxNorm: 102733 1/2 Tablet(s) PO daily 11/201409/14/2015 Inactive [SAVINGS FOR NON-COVERED DRUGS -- BIN:027544, PCN: ASPROD1, Group: XXXXX, ID# [id number], Questions: . THIS IS NOT INSURANCE.] hydrocodone 10 mg-acetaminophen 325 mg tablet RxNorm: 950907 1 Tablet(s) PO Q4 PRN TAKE ONE TABLET BY MOUTH EVERY 4 HOURS NEEDED FOR PAIN 04/28/2015 06/26/2015 Inactive (Appended: Controlled substance eRx refill - RxReferenceNumber: [id number]) estradiol 0.5 mg tablet RxNorm: 336297 TAKE ONE-HALF TABLET BY MOUTH TWO TIMES A DAY 04/21/2015 10/17/2015 Inactive Mobic 15 mg tablet RxNorm: 138454 TAKE ONE TABLET BY MOUTH EVERY DAY 03/27/2015 09/22/2015 Inactive hydrochlorothiazide 25 mg tablet RxNorm: 590512 1 Tablet(s) PO daily 03/10/2015 03/09/2015 Inactive hydrochlorothiazide 25 mg tablet RxNorm: 747751 1 Tablet(s) PO daily 03/10/2015 03/23/2015 Inactive hydrocodone 10 mg-acetaminophen 325 mg tablet RxNorm: 910664 1 Tablet(s) PO Q4 PRN TAKE ONE TABLET BY MOUTH EVERY 4 HOURS NEEDED FOR PAIN 01/24/2015 03/24/2015 Inactive (Appended: Controlled substance eRx refill - RxReferenceNumber: [id number]) gabapentin 100 mg capsule RxNorm: 840757 Capsule(s) PO TAKE TWO CAPSULE PO IN THE AM AND 3 PO IN THE PIOTR PRN 01/17/201509/2014 Inactive [SAVINGS FOR NON-COVERED DRUGS -- BIN:[id number], PCN: ASPROD1, Group: XXXXX, ID# [id number], Questions: . THIS IS NOT INSURANCE.] Requip 0.5 mg tablet RxNorm: 324063 TAKE ONE TABLET BY MOUTH EVERY DAY 01/16/2015 05/15/2015 Inactive Requip 0.5 mg tablet RxNorm: 041056 TAKE ONE TABLET BY MOUTH EVERY DAY 01/16/2015 01/15/2015 Inactive Requip 0.5 mg tablet RxNorm: 949444 TAKE ONE TABLET BY MOUTH EVERY DAY 01/16/2015 01/15/2015 Inactive estradiol 0.5 mg tablet RxNorm: 354843 TAKE ONE-HALF TABLET BY MOUTH TWO TIMES A DAY 01/14/2015 04/13/2015 Inactive Benicar 40 mg tablet RxNorm: 738951 1/2 Tablet(s) PO daily 02/201505/21/2015 Inactive [SAVINGS FOR NON-COVERED DRUGS -- BIN:[id number], PCN: ASPROD1, Group: XXXXX, ID# [id number], Questions: . THIS IS NOT INSURANCE.] Cymbalta 30 mg capsule,delayed release RxNorm: 268696 1 Capsule(s) PO daily 12/23/2014 05/19/2016 Inactive [SAVINGS FOR NON-COVERED DRUGS -- BIN:425397, PCN: ASPROD1, Group: XXXXX, ID# [id number], Questions: . THIS IS NOT INSURANCE.] Benicar 40 mg tablet RxNorm: 368772 1 Tablet(s) PO daily 201412/22/2014 Inactive [SAVINGS FOR UNINSURED PATIENTS -- BIN:684624, PCN: ASPROD1, Group: [id number], ID # [id number], Process claim through [employer], for questions: . THIS IS NOT INSURANCE.] hydrocodone 10 mg-acetaminophen 325 mg tablet RxNorm: 792401 Tablet(s) PO TAKE ONE TABLET BY MOUTH EVERY 4 HOURS NEEDED FOR PAIN 201401/23/2015 Inactive (Appended: Controlled substance eRx refill - RxReferenceNumber: [id number]) Flonase 50 mcg/actuation nasal spray,suspension RxNorm: 600572 1 Rex NASAL each nare daily 11/04/2014 11/03/2014 Inactive Keflex 500 mg capsule RxNorm: 684100 1 Capsule(s) PO QID 201411/03/2014 Inactive take probiotic while on ABT Keflex 500 mg capsule RxNorm: 944665 1 Capsule(s) PO QID 201411/10/2014 Inactive take probiotic while on ABT [SAVINGS FOR UNINSURED PATIENTS -- BIN:[id number], PCN: ASPROD1, Group: [id number], ID# [id number], Process claim through [employer], for questions: . THIS IS NOT INSURANCE.] Flonase 50 mcg/actuation nasal spray,suspension RxNorm: 0575910 1 Rex NASAL each nare daily 11/04/2014 01/02/2015 Inactive [SAVINGS FOR UNINSURED PATIENTS -- BIN:906261, PCN: ASPROD1, Group: [id number], ID# [id number], Process claim through [employer], for questions: . THIS IS NOT INSURANCE.] Benicar 40 mg tablet RxNorm: 695735 1 Tablet(s) PO daily 201411/05/2014 Inactive [SAVINGS FOR UNINSURED PATIENTS -- BIN:169729, PCN: ASPROD1, Group: [id number], ID # [id number], Process claim through [employer], for questions: . THIS IS NOT INSURANCE.] Benicar 40 mg tablet RxNorm: 398585 TAKE ONE TABLET BY MOUTH DAILY 10/28/2014 01/25/2015 Inactive hyoscyamine ER 0.375 mg tablet,extended release,12 hr RxNorm: 1792864 1 Tablet(s) PO BID 10/08/2014 12/29/2015 Inactive [SAVINGS FOR UNINSURED PATIENTS -- BIN:561609 , PCN: ASPROD1, Group: [id number], ID# [id number], Process claim through [employer], for questions: . THIS IS NOT INSURANCE.] Macrodantin 50 mg capsule RxNorm: 954160 1 Capsule(s) PO daily 10/08/2014 11/06/2015 Inactive [SAVINGS FOR UNINSURED PATIENTS -- BIN:446705, PCN: ASPROD1, Group: [id number], ID# [id number], Process claim through [employer], for questions: [phone]. THIS IS NOT INSURANCE.] Benicar 40 mg tablet RxNorm: 573636 1 Tablet(s) PO daily 201409/29/2014 Inactive Benicar 40 mg tablet RxNorm: 022472 1 Tablet(s) PO daily 201410/27/2014 Inactive [SAVINGS FOR UNINSURED PATIENTS -- BIN:854232, PCN: ASPROD1, Group: [id number], ID # [id number], Process claim through [employer], for questions: . THIS IS NOT INSURANCE.] Cipro 500 mg tablet RxNorm: 950685 1 Tablet(s) PO BID 201410/06/2014 Inactive [SAVINGS FOR UNINSURED PATIENTS -- BIN:751477, PCN: ASPROD1, Group: [id number], ID # [id number], Process claim through [employer], for questions: . THIS IS NOT INSURANCE.] Flagyl 500 mg tablet RxNorm: 823906 1 Tablet(s) PO TID 201410/06/2014 Inactive [SAVINGS FOR UNINSURED PATIENTS -- BIN:171533, PCN: ASPROD1, Group: [id number], ID # [id number], Process claim through [employer], for questions: . THIS IS NOT INSURANCE.] estradiol 0.5 mg tablet RxNorm: 539435 1/2 Tablet(s) PO BID 02/201512/22/2014 Inactive [SAVINGS FOR UNINSURED PATIENTS -- BIN:417402, PCN: ASPROD1, Group: [id number] , ID# [id number], Process claim through [employer], for questions: . THIS IS NOT INSURANCE.] Bystolic 10 mg tablet RxNorm: 987050 1 Tablet(s) PO BID 201410/07/2014 Inactive [SAVINGS FOR UNINSURED PATIENTS -- BIN:670190, PCN: ASPROD1, Group: [id number], ID # [id number], Process claim through [employer], for questions: . THIS IS NOT INSURANCE.] hydrochlorothiazide 25 mg tablet RxNorm: 224124 TAKE ONE TABLET BY MOUTH EVERY DAY 08/19/2014 12/22/2014 Inactive hydrochlorothiazide 25 mg tablet RxNorm: 459517 1 Tablet(s) PO daily 08/19/2014 11/26/2014 Inactive [SAVINGS FOR UNINSURED PATIENTS -- BIN:542097, PCN: ASPROD1, Group: [id number], ID# [id number], Process claim through [employer], for questions: [phone]. THIS IS NOT INSURANCE.] hydrocodone 10 mg-acetaminophen 325 mg tablet RxNorm: 074312 Tablet(s) PO TAKE ONE TABLET BY MOUTH EVERY 4 HOURS NEEDED FOR PAIN 201311/05/2014 Inactive (Appended: Controlled substance eRx refill - RxReferenceNumber: [id number]) Requip 0.5 mg tablet RxNorm: 069872 TAKE ONE TABLET BY MOUTH EVERY DAY 07/03/2014 11/29/2014 Inactive hydrocodone 10 mg-acetaminophen 325 mg tablet RxNorm: 251898 Tablet(s) PO TAKE ONE TABLET BY MOUTH EVERY 4 HOURS NEEDED FOR PAIN 201307/25/2014 Inactive (Appended: Controlled substance eRx refill - RxReferenceNumber: [id number]) Mobic 15 mg tablet RxNorm: 190132 TAKE ONE TABLET BY MOUTH EVERY DAY 06/11/2014 03/07/2015 Inactive Klor-Con 10 mEq tablet,extended release RxNorm: 963402 TAKE 4 TABLETS ONCE DAILY 03/11/2014 03/23/2015 Inactive hydrocodone 10 mg-acetaminophen 325 mg tablet RxNorm: 321289 Tablet(s) PO TAKE ONE TABLET BY MOUTH EVERY 4 HOURS NEEDED FOR PAIN 201306/12/2014 Inactive (Appended: Controlled substance eRx refill - RxReferenceNumber: [id number]) hydrocodone 10 mg-acetaminophen 325 mg tablet RxNorm: 3603847 1 Tablet(s) PO Q4 PRN 02/05/2014 05/05/2014 Inactive Zithromax Z-Rangel 250 mg tablet RxNorm: 343137 Tablet(s) PO UD No Stop Date Active Flagyl 500 mg tablet RxNorm: 340593 1 Tablet(s) PO TID 201301/16/2014 Inactive Cipro 500 mg tablet RxNorm: 320506 1 Tablet(s) PO BID 201301/16/2014 Inactive Cipro 500 mg tablet RxNorm: 902081 1 Tablet(s) PO BID 201301/06/2014 Inactive Requip 0.5 mg tablet RxNorm: 716275 Tablet(s) PO TAKE ONE TABLET BY MOUTH EVERY DAY 12/25/2013 07/02/2014 Inactive zolpidem 5 mg tablet RxNorm: 532155 Tablet(s) PO TAKE ONE TABLET BY MOUTH AT BEDTIME NEEDED 11/26/2013 No Stop Date Active (Appended: Controlled substance eRx refill - RxReferenceNumber: [id number]) zolpidem 5 mg tablet RxNorm: 431406 1 Tablet(s) PO HS PRN 11/2611/26/2013 Inactive Klor-Con 10 mEq tablet,extended release RxNorm: 310705 Tablet(s) PO TAKE 4 TABLETS ONCE DAILY 11/05/2013 03/10/2014 Inactive Nasonex 50 mcg/actuation Rex RxNorm: 973539 2 Rex NASAL daily 2 sprays each nare once daily 10/30/2013 No Stop Date Active Requip 0.5 mg tablet RxNorm: 721793 1 Tablet(s) PO daily 201312/24/2013 Inactive Mobic 15 mg tablet RxNorm: 376700 1 Tablet(s) PO daily 201302/26/2014 Inactive Voltaren 1 % topical gel RxNorm: 382685 1 Application TOP QID 10/30/2013 11/23/2014 Inactive ketorolac 60 mg/2 mL intramuscular solution RxNorm: 649294 2 Milliliter(s) IM 10/30/2013 10/30/2013 Inactive nystatin 100,000 unit/gram topical powder RxNorm: 092829 1 Application TOP BID 10/30/2013 11/12/2013 Inactive Flagyl 500 mg tablet RxNorm: 979954 1 Tablet(s) PO TID 201311/08/2013 Inactive promethazine 25 mg/mL injection solution RxNorm: 923808 1 Milliliter(s) Inj 10/30/2013 10/30/2013 Inactive Diflucan 150 mg tablet RxNorm: 738409 1 Tablet(s) PO daily 10/10/2013 Inactive Diflucan 150 mg tablet RxNorm: 204542 1 Tablet(s) PO daily 10/03/2013 Inactive metformin 500 mg tablet RxNorm: 539830 1/2 Tablet(s) PO QHS 03/201410/30/2013 Inactive nystatin 100,000 unit/gram topical powder RxNorm: 802742 1 Application TOP BID 09/25/2013 10/08/2013 Inactive Bystolic 5 mg tablet RxNorm: 045433 Tablet(s) PO 09/24/2013 09/18/2014 Inactive 2 q am (10mg)1 q piotr (5mg ) Zithromax Z-Rangel 250 mg tablet RxNorm: 390380 Tablet(s) PO UD No Stop Date Active hydrocodone 10 mg-acetaminophen 325 mg tablet RxNorm: 992604 1 Tablet(s) PO Q4 PRN 09/10/2013 02/05/2014 Inactive Flexeril 5 mg tablet RxNorm: 532165 1 Tablet(s) PO Q8 PRN TAKE ONE TABLET BY MOUTH EVERY 8 HOURS NEEDED 09/10/2013 10/26/2017 Inactive Macrobid 100 mg capsule RxNorm: 616079 1 Capsule(s) PO BID 09/19/2013 Inactive zolpidem 5 mg tablet RxNorm: 169785 1 Tablet(s) PO HS PRN 08/2411/21/2013 Inactive simvastatin 20 mg tablet RxNorm: 368099 1 Tablet(s) PO QHS TAKE ONE TABLET BY MOUTH AT BEDTIME 08/24/2013 08/18/2014 Inactive Requip 0.5 mg tablet RxNorm: 551015 1/2 Tablet(s) PO daily 1/2 tab PO qhs x 1 week , then increase to full tablet PO qhs 08/23/2013 08/22/2013 Inactive iron 325 mg (65 mg iron) tablet RxNorm: 593243 1 Tablet(s) PO Mon Wed Frid take with orange juice 08/23/2013 01/19/2014 Inactive iron 325 mg (65 mg iron) tablet RxNorm: 758598 1 Tablet(s) PO Mon Wed Frid take with orange juice 08/23/2013 08/22/2013 Inactive Requip 0.5 mg tablet RxNorm: 921917 1/2 Tablet(s) PO daily 1/2 tab PO qhs x 1 week , then increase to full tablet PO qhs 08/23/2013 10/21/2013 Inactive hydrochlorothiazide 25 mg tablet RxNorm: 741775 1 Tablet(s) PO daily 08/02/2013 04/28/2014 Inactive Kenalog 40 mg/mL Susp for Injection RxNorm: 4084844 2 Milliliter(s) Inj 07/06/2013 07/06/2013 Inactive Zithromax Z-Rangel 250 mg tablet RxNorm: 228754 Tablet(s) PO UD No Stop Date Active zolpidem 5 mg tablet RxNorm: 934666 1 Tablet(s) PO HS PRN 05/3108/23/2013 Inactive simvastatin 20 mg tablet RxNorm: 057185 Tablet(s) PO TAKE ONE TABLET BY MOUTH AT BEDTIME 05/17/2013 08/23/2013 Inactive zolpidem 5 mg tablet RxNorm: 846431 1 Tablet(s) PO HS PRN 05/1705/30/2013 Inactive hydrocodone 10 mg-acetaminophen 325 mg tablet RxNorm: 5054063 1 Tablet(s) PO Q4 PRN 05/17/2013 08/14/2013 Inactive zolpidem 5 mg tablet RxNorm: 825999 1 Tablet(s) PO HS PRN 04/0405/03/2013 Inactive hydrocodone 10 mg-acetaminophen 325 mg tablet RxNorm: 2627147 1 Tablet(s) PO Q4 PRN 04/04/2013 05/16/2013 Inactive Voltaren 1 % topical gel RxNorm: 402463 1 Application TOP QID 04/04/2013 10/29/2013 Inactive gabapentin 100 mg capsule RxNorm: 144301 Capsule(s) PO TAKE ONE CAPSULE BY MOUTH TWICE A DAY 03/05/2013 07/21/2014 Inactive zolpidem 5 mg tablet RxNorm: 294377 1 Tablet(s) PO HS PRN 02/0804/03/2013 Inactive Flexeril 5 mg tablet RxNorm: 577430 1 Tablet(s) PO Q8 PRN TAKE ONE TABLET BY MOUTH EVERY 8 HOURS NEEDED 02/07/2013 09/10/2013 Inactive hydrocodone 10 mg-acetaminophen 325 mg tablet RxNorm: 4754067 1 Tablet(s) PO Q4 PRN 02/07/2013 04/03/2013 Inactive Celebrex 200 mg capsule RxNorm: 629338 1 Capsule(s) PO BID TAKE ONE CAPSULE BY MOUTH TWICE A DAY 02/07/2013 10/30/2013 Inactive zolpidem 5 mg tablet RxNorm: 648438 1 Tablet(s) PO HS PRN 01/1102/07/2013 Inactive Flexeril 5 mg tablet RxNorm: 279908 Tablet(s) PO TAKE ONE TABLET BY MOUTH EVERY 8 HOURS NEEDED 01/04/2013 02/06/2013 Inactive hydrocodone 10 mg-acetaminophen 325 mg tablet RxNorm: 3735167 1 Tablet(s) PO Q4 PRN 01/04/2013 02/06/2013 Inactive Flexeril 5 mg tablet RxNorm: 469280 1 Tablet(s) PO Q8 PRN 01/04 No Stop Date Active Nasonex 50 mcg/actuation Rex RxNorm: 382439 2 Rex NASAL 2 sprays each nare once daily 01/04/2013 10/29/2013 Inactive Klor-Con 10 mEq tablet,extended release RxNorm: 329442 Tablet(s) PO TAKE 4 TABLETS ONCE DAILY 12/18/2012 11/04/2013 Inactive simvastatin 20 mg tablet RxNorm: 963951 Tablet(s) PO TAKE ONE TABLET BY MOUTH AT BEDTIME 12/06/2012 05/16/2013 Inactive gabapentin 100 mg capsule RxNorm: 059699 1 Capsule(s) PO BID 03/03/2013 Inactive gabapentin 100 mg capsule RxNorm: 510318 1 Capsule(s) PO BID 12/03/2012 Inactive amoxicillin 500 mg tablet RxNorm: 760767 1 Tablet(s) PO TID 12/03/2012 Inactive amoxicillin 500 mg tablet RxNorm: 884710 1 Tablet(s) PO TID 12/08/2012 Inactive zolpidem 5 mg tablet RxNorm: 077020 1 Tablet(s) PO HS PRN 11/0801/06/2013 Inactive hydrocodone 10 mg-acetaminophen 325 mg tablet RxNorm: 3650389 1 Tablet(s) PO Q4 PRN 11/08/2012 01/03/2013 Inactive Celebrex 200 mg capsule RxNorm: 752385 Capsule(s) PO TAKE ONE CAPSULE BY MOUTH TWICE A DAY 11/08/2012 02/06/2013 Inactive gabapentin 100 mg capsule RxNorm: 033791 1 Capsule(s) PO BID 11/06/2012 Inactive gabapentin 100 mg capsule RxNorm: 639665 1 Capsule(s) PO BID 12/03/2012 Inactive Bystolic 5 mg tablet RxNorm: 305072 Tablet(s) PO 07/19/2012 07/18/2012 Inactive 2 q am (10mg)1 q piotr (5mg ) Bystolic 5 mg tablet RxNorm: 213141 Tablet(s) PO 07/19/2012 07/13/2013 Inactive 2 q am (10mg)1 q piotr (5mg ) hydrocodone-acetaminophen 10 mg-325 mg tablet RxNorm: 8898198 1 Tablet(s) PO Q4 PRN 07/12/2012 10/09/2012 Inactive hydrochlorothiazide 25 mg tablet RxNorm: 178668 1 Tablet(s) PO daily 07/12/2012 07/06/2013 Inactive Bystolic 10 mg tablet RxNorm: 531690 1 Tablet(s) PO daily 201107/18/2012 Inactive Lasix 20 mg tablet RxNorm: 249614 1 Tablet(s) PO PRN Take an extra potassium when taking lasix 07/12/2012 05/19/2016 Inactive Influenza Virus Vaccine 0.5 mL RxNorm: IM 06/28/2012 06/28/2012 Inactive Pneumovax 23 25 mcg/0.5 mL Injection RxNorm: 488797 Milliliter(s) Inj 06/28/2012 06/28/2012 Inactive Lasix 20 mg tablet RxNorm: 845480 1 Tablet(s) PO PRN Take an extra potassium when taking lasix 06/28/2012 07/11/2012 Inactive Flexeril 5 mg tablet RxNorm: 959190 1 Tablet(s) PO Q8 PRN 06/2009/17/2012 Inactive Flexeril 5 mg tablet RxNorm: 827072 1 Tablet(s) PO Q8 PRN 06/1506/19/2012 Inactive hydrochlorothiazide 25 mg tablet RxNorm: 595590 1 Tablet(s) PO daily 06/08/2012 07/07/2012 Inactive hydrocodone-acetaminophen 5 mg-500 mg capsule RxNorm: 375086 1 Capsule(s) PO Q6 PRN 06/08/2012 06/27/2012 Inactive hydrochlorothiazide 25 mg tablet RxNorm: 862891 1 Tablet(s) PO daily 06/08/2012 06/07/2012 Inactive Bystolic 10 mg tablet RxNorm: 110087 1 Tablet(s) PO daily 201107/11/2012 Inactive Lasix 20 mg tablet RxNorm: 602250 1 Tablet(s) PO PRN Take 1 tab daily x 5 days then daily PRN swelling. Take an extra potassium when taking potassium 05/10/2012 06/27/2012 Inactive hydrocodone-acetaminophen 5 mg-500 mg capsule RxNorm: 302335 1 Capsule(s) PO Q6 PRN 05/09/2012 06/07/2012 Inactive Flexeril 5 mg tablet RxNorm: 655097 1 Tablet(s) PO Q8 PRN 04/0706/14/2012 Inactive hydrocodone-acetaminophen 5 mg-500 mg capsule RxNorm: 248294 1 Capsule(s) PO Q6 PRN 03/30/2012 05/08/2012 Inactive Voltaren 1 % Topical Gel RxNorm: 643116 1 Application TOP QID 03/23/2012 09/18/2012 Inactive Voltaren 1 % Topical Gel RxNorm: 879207 1 Application TOP QID 03/23/2012 03/22/2012 Inactive Celebrex 200 mg capsule RxNorm: 490643 1 Capsule(s) PO BID 12/201111/07/2012 Inactive hydrocodone-acetaminophen 5 mg-500 mg Cap RxNorm: 944266 1 Capsule(s) PO Q6 PRN 02/15/2012 03/29/2012 Inactive hydrochlorothiazide 25 mg Tab RxNorm: 231963 1 Tablet(s) PO daily 02/02/2012 05/24/2012 Inactive Flagyl 500 mg Tab RxNorm: 649175 1 Tablet(s) PO TID 201102/01/2012 Inactive Flagyl 500 mg Tab RxNorm: 287744 1 Tablet(s) PO TID 201105/24/2012 Inactive hydrochlorothiazide 25 mg Tab RxNorm: 727272 1 Tablet(s) PO daily 02/02/2012 02/01/2012 Inactive Diflucan 150 mg Tab RxNorm: 170523 1 Tablet(s) PO daily 201105/24/2012 Inactive simvastatin 20 mg tablet RxNorm: 508104 1 Tablet(s) PO QHS 12/201112/05/2012 Inactive hydrocodone-acetaminophen 5 mg-500 mg Cap RxNorm: 724083 1 Capsule(s) PO Q6 PRN 01/20/2012 02/15/2012 Inactive Flagyl 500 mg Tab RxNorm: 429323 1 Tablet(s) PO TID 201101/04/2012 Inactive Macrobid 100 mg capsule RxNorm: 911794 1 Capsule(s) PO BID 07/201201/07/2012 Inactive lactobacillus acidophilus Chewable Tab RxNorm: 1 Tablet(s) PO BID 12/29/2011 05/24/2012 Inactive hydrocodone-acetaminophen 5 mg-500 mg Cap RxNorm: 129779 1 Capsule(s) PO Q6 PRN 12/27/2011 01/19/2012 Inactive hydrocodone-acetaminophen 5 mg-500 mg Cap RxNorm: 084037 1 Capsule(s) PO Q6 PRN 12/07/2011 12/26/2011 Inactive hydrochlorothiazide 50 mg Tab RxNorm: 817875 1 Tablet(s) PO daily 11/11/2011 05/24/2012 Inactive hydrocodone-acetaminophen 5 mg-500 mg Cap RxNorm: 123517 1 Capsule(s) PO Q6 PRN 10/27/2011 12/06/2011 Inactive Klor-Con 10 mEq tablet,extended release RxNorm: 053814 4 Tablet(s) PO daily 09/28/2011 06/23/2012 Inactive ketorolac 60 mg/2 mL IM RxNorm: 235331 2 Milliliter(s) IM 08/3108/31/2011 Inactive Klor-Con 10 10 mEq Tab RxNorm: 505066 4 Tablet(s) PO daily 04/201109/27/2011 Inactive Kenalog 40 mg/mL Susp for Injection RxNorm: 2355901 1.5 Milliliter(s) Inj 08/18/2011 08/18/2011 Inactive prednisone 10 mg Tab RxNorm: 039912 Tablet(s) PO 08/17/2011 08/22/2011 Inactive 6-5-4 -3-2-1 Celebrex 200 mg Cap RxNorm: 261645 1 Capsule(s) PO BID 201002/20/2012 Inactive simvastatin 20 mg Tab RxNorm: 121549 1 Tablet(s) PO 07/22/2011 01/20/2012 Inactive Rocephin 500 mg Solution for Injection RxNorm: 521040 1 Milliliter(s) Inj as doctor directed 05/21/2011 05/21/2011 Inactive Advair Diskus 250 mcg-50 mcg/dose powder for inhalation RxNorm: 8578604 2 Puff(s) INH BID No Start Date Active Vitamin D-3 Oral RxNorm: Oral No Start Date Active Diflucan 150 mg tablet RxNorm: 799231 1 Tablet(s) PO every other day No Start Date 01/06/2014 Inactive Klor-Con 10 10 mEq Tab RxNorm: 025468 1 Tablet(s) PO daily No Start Date 08/25/2011 Inactive nystatin-triamcinolone 100,000 unit/g-0.1 % Topical Cream RxNorm: 4051190 1 Application TOP TID No Start Date 2012 Inactive Bystolic 10 mg tablet RxNorm: 449100 1 Tablet(s) PO daily No Start Date 2012 Inactive Nasonex 50 mcg/actuation Rex RxNorm: 767688 2 Rex NASAL 2 sprays each nare once daily No Start Date 01/03/2013 Inactive naproxen 500 mg Tab RxNorm: 551909 1 Tablet(s) PO BID No Start Date 12/28/2011 Inactive mupirocin 2 % topical ointment RxNorm: 625525 1 Application TOP BID No Start Date 09/15/2017 Inactive Lasix 20 mg tablet RxNorm: 150309 1 Tablet(s) PO PRN Take 1 tab daily x 5 days then daily PRN swelling. Take an extra potassium when taking potassium No Start Date 05/09/2012 Inactive Flexeril 5 mg tablet RxNorm: 583631 1 Tablet(s) PO Q8 PRN No Start Date 04/06/2012 Inactive cyclobenzaprine 10 mg tablet RxNorm: 129047 1 Tablet(s) PO TID as needed No Start Date 10/26/2017 Inactive hydrocodone-acetaminophen 5 mg-500 mg Cap RxNorm: 161931 1 Capsule(s) PO Q6 PRN No Start Date 10/26/2011 Inactive Phenergan-Codeine 6.25 mg-10 mg/5 mL syrup RxNorm: 699062 5 Milliliter(s) PO Q6 as needed cough No Start Date 07/19/2017 Inactive diclofenac sodium 75 mg tablet,delayed release RxNorm: 536204 2 Tablet(s) PO BID No Start Date 03/24/2016 Inactive Zithromax Z-Rangel 250 mg tablet RxNorm: 861544 Tablet(s) PO UD No Start Date 03/22/2012 Inactive orphenadrine citrate ER 100 mg Tab RxNorm: 902046 1 Tablet(s) PO BID No Start Date 05/19/2016 Inactive scopolamine 1.5 mg transdermal patch (1 mg over 3 days) RxNorm: 342211 2 Patch TD q 3 days No Start Date 07/08/2016 Inactive Fish Oil 1,000 mg Cap RxNorm: 3 Capsule(s) PO daily No Start Date 04/29/2013 Inactive Macrodantin 50 mg Cap RxNorm: 958790 1 Capsule(s) PO daily No Start Date 10/07/2014 Inactive hydrochlorothiazide 50 mg Tab RxNorm: 826596 1 Tablet(s) PO daily No Start Date 11/10/2011 Inactive Medication Administered Medication Codes Instructions Start Date Status ceftriaxone 500 mg solution for injection RxNorm: 9578136 1Gram 09/14/2017 No longer Active ceftriaxone 500 mg solution for injection RxNorm: 6105582 08/09/2017 No longer Active ceftriaxone 500 mg solution for injection RxNorm: 8375060 1Milliliter 08/08/2017 No longer Active Kenalog 40 mg/mL suspension for injection RxNorm: 4936067 Milliliter 09/27/2016 No longer Active promethazine 25 mg/mL injection solution RxNorm: 508499 1Milliliter 10/30/2013 No longer Active ketorolac 60 mg/2 mL intramuscular solution RxNorm: 386250 2Milliliter 10/30/2013 No longer Active Kenalog 40 mg/mL Susp for Injection RxNorm: 8187280 2Milliliter 07/06/2013 No longer Active Influenza Virus Vaccine 0.5 mL RxNorm: 06/28/2012 No longer Active Pneumovax 23 25 mcg/0.5 mL Injection RxNorm: 495935 Milliliter 06/28/2012 No longer Active ketorolac 60 mg/2 mL IM RxNorm: 730172 2Milliliter 08/31/2011 No longer Active Kenalog 40 mg/mL Susp for Injection RxNorm: 0852945 1.5Milliliter 08/18/2011 No longer Active Rocephin 500 mg Solution for Injection RxNorm: 996334 1Milliliteras doctor directed 05/21/2011 No longer Active Immunizations Vaccine Codes Date Status Influenza CVX: 141 06/21/2016 completed Pneumococcal (Adult) CVX: 133 07/21/2015 completed Tetanus, Diptheria, Pertussis CVX: 113 completed Tetanus/Diptheria CVX: 113 07/21/2015 completed Tetanus, Diptheria, Pertussis CVX: 113 completed Tetanus/Diptheria CVX: 113 09/05/2014 completed Influenza CVX: 141 06/14/2014 completed Influenza CVX: 141 06/28/2012 completed Pneumococcal (Adult) CVX: 33 06/28/2012 completed Assessments Condition Codes Effective Dates Cellulitis of left finger ICD-10: L03.012 ICD-9: 681.00 09/14/2017 Dysuria ICD-10: R30.0 ICD-9: 788.1 06/21/2017 Other fatigue ICD-10: R53.83 ICD-9: 780.79 06/10/2017 Other insomnia ICD-10: G47.09 ICD-9: 780.52 06/10/2017 Rash and other nonspecific skin eruption ICD-10: R21 ICD-9: 782.1 06/10/2017 Essential (primary) hypertension ICD-10: I10 ICD-9: 401.9 06/10/2017 Vitamin B12 deficiency anemia, unspecified ICD-10: D51.9 ICD-9: 281.1 06/10/2017 Encounter for general adult medical examination with abnormal findings ICD-10: Z00.01 ICD-9: V70.0 12/17/2016 Pain in left shoulder ICD-10: M25.512 ICD-9: 719.41 11/25/2016 Pneumonia, unspecified organism ICD-10: J18.9 ICD-9: 486 11/25/2016 Cough ICD-10: R05 ICD-9: 786.2 11/25/2016 Hypoxemia ICD-10: R09.02 ICD-9: 799.02 11/11/2016 Encounter for immunization ICD-10: Z23 ICD-9: V04.81 06/21/2016 Encounter for gynecological examination (general) (routine) without abnormal findings ICD-10: Z01.419 ICD-9: V72.31 06/21/2016 Myalgia ICD-10: M79.1 ICD-9: 729.1 05/20/2016 Pressure ulcer of right buttock, stage 2 ICD-10: L89.312 ICD-9: 707.05 05/20/2016 Unilateral primary osteoarthritis, right knee ICD-10: M17.11 ICD-9: 715.16 01/26/2016 Cutaneous abscess of left upper limb ICD-10: L02.414 ICD-9: 682.3 11/12/2015 Localized edema ICD-10: R60.0 ICD-9: 782.3 09/29/2015 Pain in leg, unspecified ICD-10: M79.606 ICD-9: 729.5 07/21/2015 VACCIN STREP PNEUMONIAE ICD-10: Z23 ICD-9: V03.82 07/21/2015 Primary generalized (osteo)arthritis ICD-10: M15.0 ICD-9: 715.09 07/21/2015 Presence of surgical incision ICD-9: V49.89 05/20/2015 Edema ICD-9: 782.3 05/20/2015 Leg pain ICD-9: 729.5 01/24/2015 ESSENTIAL HYPERTENSION ICD-9: 401.9 01/24 Irritable bowel ICD-9: 564.1 10/08/2014 Back pain ICD-9: 724.5 09/24/2014 Leg cramps ICD-9: 729.82 09/24/2014 Varicose veins ICD-9: 454.9 09/24/2014 Diarrhea ICD-9: 787.91 09/24/2014 Abdominal pain ICD-9: 789.00 09/24/2014 Need for tetanus booster ICD-9: V03.7 OTH SCREENING MAMMOGRAM ICD-9: V76.12 Diverticulosis ICD-9: 562.10 01/11/2014 Nausea and vomiting ICD-9: 787.01 2013 Tinea cruris ICD-9: 110.3 09/25/2013 Elevated blood sugar ICD-9: 790.29 2013 DEFICIENCY ANEMIA ICD-9: 281.9 2012 ABN THYROID FUNCT STUDY ICD-9: 794.5 10/2012 Fatigue ICD-9: 780.79 08/20/2013 Insomnia ICD-9: 780.52 08/20/2013 Spasm of muscle ICD-9: 728.85 07/06/2013 Cervicalgia ICD-9: 723.1 07/06/2013 Musculoskeletal disorder and symptoms referable to neck ICD- 9: 723.9 07/06/2013 Health examination of defined subpopulation ICD-9: V70.5 04/30/2013 ALLERGIC RHINITIS ICD-9: 477.9 2012 Thinning hair ICD-9: 704.00 10/26/2012 Abnormal thyroid exam ICD-9: 246.9 2012 VAC STREP PNEUMONIAE-FLU ICD-9: V06.6 06/2012 Bibasilar crackles ICD-9: 786.7 2011 Acute pharyngitis ICD-9: 462 01/31/2012 Urinary tract infection ICD-9: 599.0 07/2012 NSAID long-term use ICD-9: V58.64 2011 Abnormal bruising ICD-9: 782.9 2011 Fall on same level from slipping, tripping, or stumbling ICD -9: E885.9 08/31/2011 Hip pain, right ICD-9: 719.45 08/31/2011 Sciatica ICD-9: 724.3 08/17/2011 LUMBAGO ICD-9: 724.2 05/21/2011 ACUTE PYELONEPHRITIS ICD-9: 590.10 2010 RENAL & URETERAL DIS NOS ICD-9: 593.9 10/2010 Reason For Visit Reason For Visit Effective Dates Notes finger pain 09/14/2017 finger pain 08/08/2017 fatigue 06/10/2017 rash 03/04/2017 Annual Medicare Wellness Exam 12/17/2016 cough 11/25/2016 cough 11/18/2016 Hospital Follow Up 11/11/2016 hypertension 06/21/2016 rash 05/20/2016 pre-op/surgery consult 01/26/2016 cyst 11/12/2015 edema 09/29/2015 edema 08/22/2015 edema 07/21/2015 edema 05/20/2015 ~generic 01/24/2015 she is here for follow up on right femur fracture. Hospital Follow Up 12/23/2014 Hospital Follow Up 10/08/2014 Er follow up from last week elevated bp hypertension 09/24/2014 color change 07/22/2014 bilateral lower leg with pain toward inner aspect vaccination against influenza 06/14/2014 abdominal pain 01/11/2014 abdominal pain 01/07/2014 diarrhea 10/30/2013 hypertension 09/25/2013 myalgias 08/20/2013 legs neck pain 07/06/2013 well woman exam (40-65 years) 04/30/2013 sinus congestion 12/29/2012 alopecia 10/26/2012 blood pressure followup 07/12/2012 edema 06/28/2012 hypertension 05/24/2012 blood pressure followup 05/09/2012 diarrhea 01/31/2012 diarrhea 12/29/2011 abnormal bleeding and bruising 12/20/2011 sciatica 08/31/2011 leg pain/sciatica 08/17/2011 back pain 05/21/2011 Results Observation Observation Code Item Item Code Result Date Urine Culture Ucult Preliminary NO Growth Day 1 06/23/2017 Urine Culture Ucult Complete NO Growth Day 2 06/23/2017 Culture Urine [id number] URINE CULTURE SEE NOTES 06/13/2017 Culture Urine [id number] Continued Results 06/13/2017 Urine Culture Ucult Complete >100,000 col/ml aerobic growth sent to ref lab 06/11/2017 B12 Qvd870 B12 341.00 pg/ml 06/10/2017 Tsh Ord6 hTSH II 0.88 uIU/mL 06/10/2017 Comp Metabolic Dwd333 NA 138 mEq/L 06/10/2017 Comp Metabolic Jqa524 K 4.4 mEq/L 06/10/2017 Comp Metabolic Ghb396 CL 104 mEq/L 06/10/2017 Comp Metabolic Aup349 CO2 27.0 mEq/L 06/10/2017 Comp Metabolic Iuv829 ANION GAP 11 06/10/2017 Comp Metabolic Gyc322 GLUCOSE 86 mg/dL 06/10/2017 Comp Metabolic Ghw613 Creat 1.2 mg/dL 06/10/2017 Comp Metabolic Lzi230 eGFR 49 ml/min/1.73m2 06/10/2017 Comp Metabolic Agc215 BUN 26 mg/dL 06/10/2017 Comp Metabolic Poo316 B/C Ratio 22.2 Ratio 06/10/2017 Comp Metabolic Cat932 CALCIUM 9.4 mg/dL 06/10/2017 Comp Metabolic Ecz645 ALK PHOS 48 U/L 06/10/2017 Comp Metabolic Gju029 AST(SGOT) 28 U/L 06/10/2017 Comp Metabolic Jwf071 ALT(SGPT) 29 U/L 06/10/2017 Comp Metabolic Rbx637 BILI T 0.5 mg/dL 06/10/2017 Comp Metabolic Ptx685 ALBUMIN 4.1 g/dL 06/10/2017 Comp Metabolic Cjj959 TPRO 6.3 g/dL 06/10/2017 Comp Metabolic Xrs065 GLOB 2.2 g/dL 06/10/2017 Comp Metabolic Upl766 A/G Ratio 1.9 Ratio 06/10/2017 Comp Metabolic Wkp907 Osmo 280 mOsmo 06/10/2017 Cbc With Differential Ord2 WBC 5.22 K/ul 06/10/2017 Cbc With Differential Ord2 RBC 3.35 M/ul 06/10/2017 Cbc With Differential Ord2 HGB 11.7 g/dl 06/10/2017 Cbc With Differential Ord2 HCT 36.0 % 06/10/2017 Cbc With Differential Ord2 Neut% 56.1 % 06/10/2017 Cbc With Differential Ord2 Lymph% 28.4 % 06/10/2017 Cbc With Differential Ord2 MCV 107.5 fl 06/10/2017 Cbc With Differential Ord2 [place]% 10.7 % 06/10/2017 Cbc With Differential Ord2 MCH 34.9 pg 06/10/2017 Cbc With Differential Ord2 MCHC 32.5 pg 06/10/2017 Cbc With Differential Ord2 Eos% 4.4 % 06/10/2017 Cbc With Differential Ord2 Baso% 0.4 % 06/10/2017 Cbc With Differential Ord2 PLT 358 K/ul 06/10/2017 Cbc With Differential Ord2 Neut ABS# 2.93 K/ul 06/10/2017 Cbc With Differential Ord2 RDW 13.3 % 06/10/2017 Cbc With Differential Ord2 Lymph ABS# 1.48 K/ul 06/10/2017 Cbc With Differential Ord2 [place] ABS# 0.6 K/ul 06/10/2017 Cbc With Differential Ord2 Eos ABS# 0.2 K/ul 06/10/2017 Cbc With Differential Ord2 Baso ABS# 0.0 K/ul 06/10/2017 Total T3 Ord42 TT3 0.70 ng/ml 06/10/2017 Comp Metabolic Pmu679 NA 139 mEq/L 08/20/2015 Comp Metabolic Mha987 K 4.4 mEq/L 08/20/2015 Comp Metabolic Kal899 CL 104 mEq/L 08/20/2015 Comp Metabolic Fyg390 CO2 26.0 mEq/L 08/20/2015 Comp Metabolic Ukn853 ANION GAP 13 08/20/2015 Comp Metabolic Nrj704 GLUCOSE 78 mg/dL 08/20/2015 Comp Metabolic Enp986 Creat 0.8 mg/dL 08/20/2015 Comp Metabolic Tzp392 eGFR 79 ml/min/1.73m2 08/20/2015 Comp Metabolic Cve361 BUN 21 mg/dL 08/20/2015 Comp Metabolic Ajx288 B/C Ratio 27.3 Ratio 08/20/2015 Comp Metabolic Cla445 CALCIUM 9.5 mg/dL 08/20/2015 Comp Metabolic Pfb142 ALK PHOS 64 U/L 08/20/2015 Comp Metabolic Wxf481 AST(SGOT) 20 U/L 08/20/2015 Comp Metabolic Jcw169 ALT(SGPT) 16 U/L 08/20/2015 Comp Metabolic Flh677 BILI T 0.5 mg/dL 08/20/2015 Comp Metabolic Qdt616 ALBUMIN 4.2 g/dL 08/20/2015 Comp Metabolic Llm761 TPRO 7.0 g/dL 08/20/2015 Comp Metabolic Pho109 GLOB 2.8 g/dL 08/20/2015 Comp Metabolic Gdx109 A/G Ratio 1.5 Ratio 08/20/2015 Comp Metabolic Bzd231 Osmo 279 mOsmo 08/20/2015 Cbc With Differential Ord2 WBC 5.3 K/uL 08/20/2015 Cbc With Differential Ord2 LYM 1.5 K/uL 08/20/2015 Cbc With Differential Ord2 LYM% 27.6 % 08/20/2015 Cbc With Differential Ord2 NEUT/GRAN 3.3 K/uL 08/20/2015 Cbc With Differential Ord2 NEUT/GRAN % 62.1 % 08/20/2015 Cbc With Differential Ord2 MID 0.5 K/uL 08/20/2015 Cbc With Differential Ord2 MID% 10.3 % 08/20/2015 Cbc With Differential Ord2 RBC 4.06 M/uL 08/20/2015 Cbc With Differential Ord2 HGB 12.9 g/dL 08/20/2015 Cbc With Differential Ord2 HCT 41.0 % 08/20/2015 Cbc With Differential Ord2 MCV 101 fL 08/20/2015 Cbc With Differential Ord2 MCH 32 pg 08/20/2015 Cbc With Differential Ord2 MCHC 32 g/dL 08/20/2015 Cbc With Differential Ord2 PLT 293 K/uL 08/20/2015 Cbc With Differential Ord2 RDW 13.6 % 08/20/2015 Metabolic Ord15 NA 134 mEq/L 04/15/2015 Metabolic Ord15 K 4.0 mEq/L 04/15/2015 Metabolic Ord15 CL 104 mEq/L 04/15/2015 Metabolic Ord15 CO2 25.0 mEq/L 04/15/2015 Metabolic Ord15 GLUCOSE 86 mg/dL 04/15/2015 Metabolic Ord15 BUN 24 mg/dL 04/15/2015 Metabolic Ord15 Creat 0.8 mg/dL 04/15/2015 Metabolic Ord15 B/C Ratio 30.8 Ratio 04/15/2015 Metabolic Ord15 eGFR 78 ml/min/1.73m2 04/15/2015 Metabolic Ord15 Osmo 272 mOsmo 04/15/2015 Metabolic Ord15 ANION GAP 9 04/15/2015 Metabolic Ord15 CALCIUM 9.2 mg/dL 04/15/2015 %SAT/TIBC [id number] TIBC 360 UG/DL 08/22/2013 %SAT/TIBC 5509477 % SATURAT 22 % 08/22/2013 %SAT/TIBC [id number] UIBC 282 MCG/DL 08/22/2013 IRON TEST [id number] IRON TEST 78 UG/DL 08/22/2013 VIT D TOTL 5713066 VIT D TOTL 74 NG/ML 08/22/2013 CANCEL [id number] CANCEL FOOTNOTE 08/22/2013 A1C HPLC [id number] A1C HPLC 07238-8 5.8 % 08/21/2013 CHEM 14 [id number] AST 25 U/L 08/20/2013 CHEM 14 4406821 ALT 32 IU/L 08/20/2013 CHEM 14 [id number] BUN 21 MG/DL 08/20/2013 CHEM 14 [id number] ALBUMIN 4.4 GM/DL 08/20/2013 CHEM 14 1471905 CHLORIDE 105 MMOL/L 08/20/2013 CHEM 14 0317209 BILI TOT 0.5 MG/DL 08/20/2013 CHEM 14 2535063 ALK PHOS 50 U/L 08/20/2013 CHEM 14 9518425 SODIUM 139 MMOL/L 08/20/2013 CHEM 14 1512623 CREATININE 0.76 MG/DL 08/20/2013 CHEM 14 3273817 CALCIUM 9.7 MG/DL 08/20/2013 CHEM 14 3742071 POTASSIUM 3.9 MMOL/L 08/20/2013 CHEM 14 9922937 PROT TOT 7.0 GM/DL 08/20/2013 CHEM 14 4671723 GLUCOSE 135 MG/DL 08/20/2013 CHEM 14 8018603 BICARB 27 MMOL/L 08/20/2013 CHEM 14 7831923 ANION GAP 7 MEQ/L 08/20/2013 CBC [id number] WBC 6.6 10e9/L 08/20/2013 CBC 8898569 RBC 4.28 10e12/L 08/20/2013 CBC 5236595 HGB 14.1 g/dL 08/20/2013 CBC [id number] HCT DET 42.7 % 08/20/2013 CBC 1227842 MCV 99.8 fL 08/20/2013 CBC [id number] MCH 32.9 pg 08/20/2013 CBC 2424466 MCHC 33.0 g/dL 08/20/2013 CBC 1912526 PLT 289 10e9/L 08/20/2013 CBC 2581656 MPV 9.8 fL 08/20/2013 CBC 4861855 AZAEL % 70.3 % 08/20/2013 CBC 3943634 LY % 21.2 % 08/20/2013 CBC 1407772 MON % 7.4 % 08/20/2013 CBC 2230004 EOS % 0.9 % 08/20/2013 CBC 4320146 BASO % 0.2 % 08/20/2013 CBC 3166626 RDW 13.5 % 08/20/2013 CBC [id number] ABS AZAEL 4.64 10e9/L 08/20/2013 CBC [id number] ABS LYMPH 1.40 10e9/L 08/20/2013 CBC 8998311 ABS MONO 0.49 10e9/L 08/20/2013 CBC 7054468 ABS EOS 0.06 10e9/L 08/20/2013 CBC [id number] ABS BASO 0.01 10e9/L 08/20/2013 CBC 0814796 RDW-SD 48.4 fL 08/20/2013 GFR CALC 4212006 GFR AA >60 ML/MIN 08/20/2013 GFR CALC 3952059 GFR NON-AA >60 ML/MIN 08/20/2013 TSH 6123830 TSH 0.610 uIU/ML 08/20/2013 MAGNESIUM 7311486 MAGNESIUM 1.7 MEQ/L 08/20/2013 URINALYSIS NONAUTO W/O SCOPE 50594 Specific [place] 1.015 DateTime(Free Text in Aprima) URINALYSIS NONAUTO W/O SCOPE 46220 PH 6.0 DateTime(Free Text in Aprima) URINALYSIS NONAUTO W/O SCOPE 68116 GLUCOSE NEG DateTime( Free Text in Apr[employer]) URINALYSIS NONAUTO W/O SCOPE 22748 Protein NEG DateTime( Free Text in Aprima) URINALYSIS NONAUTO W/O SCOPE 94449 Blood NEG DateTime(Free Text in Aprima) URINALYSIS NONAUTO W/O SCOPE 62768 Bilirubin NEG DateTime(Free Text in Aprima) URINALYSIS NONAUTO W/O SCOPE 53545 Ketones NEG DateTime( Free Text in Aprima) URINALYSIS NONAUTO W/O SCOPE 07182 Urobilinogen NEG DateTime(Free Text in Aprima) URINALYSIS NONAUTO W/O SCOPE 16970 Nitrite POSITIVE DateTime(Free Text in Apr[employer]) URINALYSIS NONAUTO W/O SCOPE 79151 Leukocytes NEG DateTime(Free Text in Aprima) Review of Systems System Result Effective Dates Constitutional No recent illness 2016 Constitutional No chills 09/14/2017 Constitutional No diaphoresis 09/14/2017 Constitutional No fatigue 09/14/2017 Constitutional No fever 09/14/2017 Constitutional No malaise 09/14/2017 Dermatologic erythema 09/14/2017 Eyes No eye erythema 09/14/2017 Ears/Nose/Throat/Neck No nasal discharge 09/14/2017 Respiratory No cough 09/14/2017 Neurologic No alteration of consciousness 09/14/2017 Neurologic No mental status change 2016 Dermatologic erythema 08/09/2017 Constitutional No recent illness 2016 Constitutional No anorexia 08/08/2017 Constitutional No night sweats 2016 Constitutional No chills 08/08/2017 Constitutional No diaphoresis 08/08/2017 Constitutional No fatigue 08/08/2017 Constitutional No fever 08/08/2017 Constitutional No insomnia 08/08/2017 Constitutional No malaise 08/08/2017 Constitutional No weight loss 08/08/2017 Constitutional No weight gain 08/08/2017 Dermatologic erythema 08/08/2017 Constitutional diaphoresis 06/10/2017 Constitutional fatigue 06/10/2017 Constitutional No fever 06/10/2017 Constitutional insomnia 06/10/2017 Constitutional No malaise 06/10/2017 Constitutional No weight loss 06/10/2017 Constitutional No weight gain 06/10/2017 Constitutional No chills 06/10/2017 Constitutional No night sweats 2016 Constitutional No anorexia 06/10/2017 Constitutional No recent illness 2016 Eyes No eye discharge 06/10/2017 Eyes No eye erythema 06/10/2017 Ears/Nose/Throat/Neck No dizziness 2016 Ears/Nose/Throat/Neck No headache 2016 Ears/Nose/Throat/Neck nasal allergies Cardiovascular No chest pain/pressure Cardiovascular No dyspnea 06/10/2017 Respiratory No cough 06/10/2017 Gastrointestinal No abdominal pain 2016 Genitourinary/Nephrology dysuria 2016 Musculoskeletal joint complaint 2016 Dermatologic rash 06/10/2017 Neurologic No alteration of consciousness 06/10/2017 Constitutional No recent illness 2016 Constitutional No anorexia 03/04/2017 Constitutional No night sweats 2016 Constitutional No chills 03/04/2017 Constitutional No diaphoresis 03/04/2017 Constitutional No fatigue 03/04/2017 Constitutional No fever 03/04/2017 Constitutional No malaise 03/04/2017 Constitutional No insomnia 03/04/2017 Constitutional No weight loss 03/04/2017 Constitutional No weight gain 03/04/2017 Dermatologic rash 03/04/2017 Dermatologic sores 03/04/2017 Constitutional No recent illness 2016 Constitutional No anorexia 12/17/2016 Constitutional No night sweats 2016 Constitutional No chills 12/17/2016 Constitutional No diaphoresis 12/17/2016 Constitutional No fatigue 12/17/2016 Constitutional No fever 12/17/2016 Eyes No eye discharge 12/17/2016 Eyes No eye erythema 12/17/2016 Ears/Nose/Throat/Neck No dizziness 2016 Ears/Nose/Throat/Neck No epistaxis 2016 Ears/Nose/Throat/Neck No headache 2016 Cardiovascular No chest pain/pressure Cardiovascular No claudication 2016 Cardiovascular No dyspnea 12/17/2016 Cardiovascular No syncope 12/17/2016 Respiratory No productive sputum 2016 Respiratory No chest congestion 2016 Respiratory No cough 12/17/2016 Gastrointestinal No abdominal pain 2016 Gastrointestinal No constipation 2016 Gastrointestinal No diarrhea 12/17/2016 Gastrointestinal No nausea 12/17/2016 Gastrointestinal No vomiting 12/17/2016 Genitourinary/Nephrology No dysuria 12/17 Musculoskeletal stiffness 12/17/2016 Musculoskeletal joint complaint 2016 Dermatologic No rash 12/17/2016 Hematologic/Lymphatic abnormal bleeding and bruising 12/17/2016 Constitutional recent illness 11/25/2016 Constitutional No anorexia 11/25/2016 Constitutional No night sweats 2016 Constitutional No chills 11/25/2016 Constitutional No diaphoresis 11/25/2016 Constitutional fatigue 11/25/2016 Constitutional No fever 11/25/2016 Constitutional No insomnia 11/25/2016 Constitutional No malaise 11/25/2016 Constitutional No weight loss 11/25/2016 Constitutional No weight gain 11/25/2016 Eyes No eye discharge 11/25/2016 Eyes No eye erythema 11/25/2016 Ears/Nose/Throat/Neck No dizziness 2016 Ears/Nose/Throat/Neck No headache 2016 Cardiovascular No chest pain/pressure 05/2017 Cardiovascular No dyspnea 11/25/2016 Respiratory No dyspnea on exertion 2016 Respiratory No dyspnea 11/25/2016 Gastrointestinal No abdominal pain 2016 Gastrointestinal No constipation 2016 Gastrointestinal No diarrhea 11/25/2016 Genitourinary/Nephrology No dysuria 11/25 Musculoskeletal joint complaint 2016 Dermatologic No rash 11/25/2016 Neurologic No alteration of consciousness 11/25/2016 Psychiatric No anxiety 11/25/2016 Endocrine No dry or coarse skin 2016 Respiratory No productive sputum 2016 Respiratory No cough 11/25/2016 Constitutional recent illness 11/18/2016 Constitutional No anorexia 11/18/2016 Constitutional No night sweats 2016 Constitutional No chills 11/18/2016 Constitutional No diaphoresis 11/18/2016 Constitutional fatigue 11/18/2016 Constitutional No fever 11/18/2016 Constitutional No insomnia 11/18/2016 Constitutional No malaise 11/18/2016 Constitutional No weight loss 11/18/2016 Constitutional No weight gain 11/18/2016 Eyes No eye discharge 11/18/2016 Eyes No eye erythema 11/18/2016 Ears/Nose/Throat/Neck No dizziness 2016 Ears/Nose/Throat/Neck No headache 2016 Cardiovascular No chest pain/pressure 10/2016 Cardiovascular No dyspnea 11/18/2016 Respiratory productive sputum 11/18/2016 Respiratory cough 11/18/2016 Respiratory No dyspnea on exertion 2016 Respiratory No dyspnea 11/18/2016 Gastrointestinal No abdominal pain 2016 Gastrointestinal No constipation 2016 Gastrointestinal No diarrhea 11/18/2016 Genitourinary/Nephrology No dysuria 11/18 Musculoskeletal joint complaint 2016 Dermatologic No rash 11/18/2016 Neurologic No alteration of consciousness 11/18/2016 Psychiatric No anxiety 11/18/2016 Endocrine No dry or coarse skin 2016 Constitutional recent illness 11/11/2016 Constitutional No night sweats 2016 Constitutional No anorexia 11/11/2016 Constitutional No chills 11/11/2016 Constitutional No diaphoresis 11/11/2016 Constitutional fatigue 11/11/2016 Constitutional No fever 11/11/2016 Constitutional No insomnia 11/11/2016 Constitutional No malaise 11/11/2016 Constitutional No weight loss 11/11/2016 Constitutional No weight gain 11/11/2016 Eyes No eye erythema 11/11/2016 Eyes No eye discharge 11/11/2016 Ears/Nose/Throat/Neck No dizziness 2016 Ears/Nose/Throat/Neck No headache 2016 Cardiovascular No chest pain/pressure Cardiovascular No dyspnea 11/11/2016 Respiratory productive sputum 11/11/2016 Respiratory cough 11/11/2016 Respiratory No dyspnea 11/11/2016 Respiratory No dyspnea on exertion 2016 Gastrointestinal No abdominal pain 2016 Gastrointestinal No constipation 2016 Gastrointestinal No diarrhea 11/11/2016 Genitourinary/Nephrology No dysuria 11/11 Musculoskeletal joint complaint 2016 Dermatologic No rash 11/11/2016 Neurologic No alteration of consciousness 11/11/2016 Psychiatric No anxiety 11/11/2016 Endocrine No dry or coarse skin 2016 Constitutional No recent illness 2015 Constitutional No anorexia 06/21/2016 Constitutional No night sweats 2015 Constitutional No chills 06/21/2016 Constitutional No diaphoresis 06/21/2016 Constitutional No fatigue 06/21/2016 Constitutional No fever 06/21/2016 Eyes No eye discharge 06/21/2016 Eyes No eye erythema 06/21/2016 Ears/Nose/Throat/Neck No dizziness 2015 Ears/Nose/Throat/Neck No epistaxis 2015 Ears/Nose/Throat/Neck No headache 2015 Cardiovascular No chest pain/pressure 11/2015 Cardiovascular No claudication 2015 Cardiovascular No dyspnea 06/21/2016 Cardiovascular No syncope 06/21/2016 Respiratory No productive sputum 2015 Respiratory No chest congestion 2015 Respiratory No cough 06/21/2016 Gastrointestinal No abdominal pain 2015 Gastrointestinal No constipation 2015 Gastrointestinal No diarrhea 06/21/2016 Gastrointestinal No nausea 06/21/2016 Gastrointestinal No vomiting 06/21/2016 Genitourinary/Nephrology No dysuria 06/21 Musculoskeletal stiffness 06/21/2016 Musculoskeletal joint complaint 2015 Dermatologic No rash 06/21/2016 Dermatologic ecchymosis 06/21/2016 Hematologic/Lymphatic abnormal bleeding and bruising 06/21/2016 Constitutional No recent illness 2015 Constitutional No anorexia 05/20/2016 Constitutional No night sweats 2015 Constitutional No chills 05/20/2016 Constitutional No diaphoresis 05/20/2016 Constitutional fatigue 05/20/2016 Constitutional No fever 05/20/2016 Constitutional No insomnia 05/20/2016 Constitutional No malaise 05/20/2016 Constitutional No weight loss 05/20/2016 Constitutional No weight gain 05/20/2016 Eyes No eye discharge 05/20/2016 Eyes No eye erythema 05/20/2016 Ears/Nose/Throat/Neck No dizziness 2015 Cardiovascular No chest pain/pressure 09/2015 Respiratory No cough 05/20/2016 Gastrointestinal No abdominal pain 2015 Genitourinary/Nephrology No dysuria 05/20 Musculoskeletal joint complaint 2015 Dermatologic sores 05/20/2016 Neurologic No alteration of consciousness 05/20/2016 Psychiatric No anxiety 05/20/2016 Constitutional No recent illness 2015 Constitutional No anorexia 01/26/2016 Constitutional No night sweats 2015 Constitutional No chills 01/26/2016 Constitutional No diaphoresis 01/26/2016 Constitutional No fatigue 01/26/2016 Constitutional No fever 01/26/2016 Constitutional No insomnia 01/26/2016 Constitutional No malaise 01/26/2016 Constitutional No weight loss 01/26/2016 Constitutional No weight gain 01/26/2016 Eyes No eye discharge 01/26/2016 Eyes No eye erythema 01/26/2016 Ears/Nose/Throat/Neck No dizziness 2015 Ears/Nose/Throat/Neck No headache 2015 Cardiovascular No chest pain/pressure 05/2016 Respiratory No cough 01/26/2016 Gastrointestinal No abdominal pain 2015 Gastrointestinal No constipation 2015 Gastrointestinal No diarrhea 01/26/2016 Genitourinary/Nephrology No dysuria 01/25 Musculoskeletal joint complaint 2015 Dermatologic No rash 01/26/2016 Neurologic No alteration of consciousness 01/26/2016 Constitutional No recent illness 2015 Constitutional No night sweats 2015 Constitutional No chills 11/12/2015 Constitutional No diaphoresis 11/12/2015 Constitutional No insomnia 11/12/2015 Constitutional No malaise 11/12/2015 Constitutional No weight gain 11/12/2015 Eyes No eye discharge 11/12/2015 Eyes No eye erythema 11/12/2015 Ears/Nose/Throat/Neck No dizziness 2015 Ears/Nose/Throat/Neck No headache 2015 Cardiovascular No chest pain/pressure Cardiovascular edema 11/12/2015 Respiratory No cough 11/12/2015 Gastrointestinal No abdominal pain 2015 Gastrointestinal No constipation 2015 Gastrointestinal No diarrhea 11/12/2015 Genitourinary/Nephrology No dysuria 11/12 Neurologic No alteration of consciousness 11/12/2015 Respiratory No chest congestion 2015 Dermatologic sores 11/12/2015 Constitutional No recent illness 2015 Constitutional No anorexia 09/29/2015 Constitutional No night sweats 2015 Constitutional No chills 09/29/2015 Constitutional No diaphoresis 09/29/2015 Constitutional fatigue 09/29/2015 Constitutional No fever 09/29/2015 Constitutional No insomnia 09/29/2015 Constitutional No malaise 09/29/2015 Constitutional No weight loss 09/29/2015 Constitutional No weight gain 09/29/2015 Eyes No eye discharge 09/29/2015 Eyes No eye erythema 09/29/2015 Ears/Nose/Throat/Neck No dizziness 2015 Ears/Nose/Throat/Neck No headache 2015 Cardiovascular No chest pain/pressure 07/2016 Cardiovascular edema 09/29/2015 Respiratory No cough 09/29/2015 Gastrointestinal No abdominal pain 2015 Gastrointestinal No constipation 2015 Gastrointestinal No diarrhea 09/29/2015 Genitourinary/Nephrology No dysuria 09/29 Musculoskeletal joint complaint 2015 Dermatologic No rash 09/29/2015 Neurologic No alteration of consciousness 09/29/2015 Constitutional No recent illness 2014 Constitutional No anorexia 08/22/2015 Constitutional No night sweats 2014 Constitutional No chills 08/22/2015 Constitutional No diaphoresis 08/22/2015 Constitutional fatigue 08/22/2015 Constitutional No fever 08/22/2015 Constitutional No insomnia 08/22/2015 Constitutional No malaise 08/22/2015 Constitutional No weight loss 08/22/2015 Constitutional No weight gain 08/22/2015 Eyes No eye discharge 08/22/2015 Eyes No eye erythema 08/22/2015 Ears/Nose/Throat/Neck No dizziness 2014 Ears/Nose/Throat/Neck No headache 2014 Cardiovascular No chest pain/pressure 12/2014 Cardiovascular edema 08/22/2015 Respiratory No cough 08/22/2015 Gastrointestinal No abdominal pain 2014 Gastrointestinal No constipation 2014 Gastrointestinal No diarrhea 08/22/2015 Genitourinary/Nephrology No dysuria 08/22 Musculoskeletal joint complaint 2014 Dermatologic No rash 08/22/2015 Neurologic No alteration of consciousness 08/22/2015 Constitutional No recent illness 2014 Constitutional No anorexia 07/21/2015 Constitutional No night sweats 2014 Constitutional No chills 07/21/2015 Constitutional No diaphoresis 07/21/2015 Constitutional fatigue 07/21/2015 Constitutional No fever 07/21/2015 Constitutional No insomnia 07/21/2015 Constitutional No malaise 07/21/2015 Constitutional No weight loss 07/21/2015 Constitutional No weight gain 07/21/2015 Eyes No eye discharge 07/21/2015 Eyes No eye erythema 07/21/2015 Ears/Nose/Throat/Neck No dizziness 2014 Ears/Nose/Throat/Neck No headache 2014 Cardiovascular No chest pain/pressure 10/2014 Cardiovascular edema 07/21/2015 Respiratory No cough 07/21/2015 Gastrointestinal No abdominal pain 2014 Gastrointestinal No constipation 2014 Gastrointestinal No diarrhea 07/21/2015 Genitourinary/Nephrology No dysuria 07/21 Musculoskeletal joint complaint 2014 Dermatologic No rash 07/21/2015 Dermatologic No sores 07/21/2015 Neurologic No alteration of consciousness 07/21/2015 Endocrine No dry or coarse skin 2014 Psychiatric No depression 07/21/2015 Constitutional No night sweats 2014 Constitutional No chills 05/20/2015 Constitutional No diaphoresis 05/20/2015 Constitutional No fever 05/20/2015 Constitutional No fatigue 05/20/2015 Ears/Nose/Throat/Neck No dizziness 2014 Ears/Nose/Throat/Neck No facial pain 09/2014 Ears/Nose/Throat/Neck No headache 2014 Ears/Nose/Throat/Neck No nasal allergies 05/20/2015 Ears/Nose/Throat/Neck No nasal discharge 05/20/2015 Respiratory No cough 05/20/2015 Respiratory No chest congestion 2014 Gastrointestinal No dyspepsia 05/20/2015 Gastrointestinal No diarrhea 05/20/2015 Gastrointestinal No constipation 2014 Genitourinary/Nephrology No nocturia 09/2014 Genitourinary/Nephrology No hematuria 09/2014 Genitourinary/Nephrology No dysuria 05/20 Dermatologic No rash 05/20/2015 Neurologic No dizziness 05/20/2015 Neurologic No headache 05/20/2015 Neurologic pain, back 05/20/2015 Psychiatric No anxiety 05/20/2015 Psychiatric No depression 05/20/2015 Endocrine No polyuria 05/20/2015 Endocrine No sweating 05/20/2015 Hematologic/Lymphatic No lymph node enlargement/mass 05/20/2015 Allergy/Immunology No rhinitis 2014 Musculoskeletal back pain 05/20/2015 Musculoskeletal joint complaint 2014 Musculoskeletal muscle weakness 2014 Musculoskeletal myalgias 05/20/2015 Cardiovascular No chest pain/pressure 09/2014 Cardiovascular edema 05/20/2015 Cardiovascular exercise intolerance 05/20 Cardiovascular hypertension 05/20/2015 Musculoskeletal No bone fracture 2014 Musculoskeletal swelling 05/20/2015 Eyes No vision change 05/20/2015 Dermatologic drainage 05/20/2015 Gastrointestinal No nausea 05/20/2015 Gastrointestinal No abdominal pain 2014 Gastrointestinal No vomiting 05/20/2015 Genitourinary/Nephrology No urinary frequency 05/20/2015 Cardiovascular No dyspnea 05/20/2015 Cardiovascular No fatigue 05/20/2015 Constitutional No recent illness 2014 Constitutional No anorexia 01/24/2015 Constitutional No night sweats 2014 Constitutional No chills 01/24/2015 Constitutional No diaphoresis 01/24/2015 Constitutional fatigue 01/24/2015 Constitutional No fever 01/24/2015 Eyes No eye discharge 01/24/2015 Eyes No eye erythema 01/24/2015 Ears/Nose/Throat/Neck No dizziness 2014 Ears/Nose/Throat/Neck No headache 2014 Ears/Nose/Throat/Neck No nasal allergies 01/24/2015 Ears/Nose/Throat/Neck No nasal discharge 01/24/2015 Ears/Nose/Throat/Neck No otalgia 2014 Cardiovascular hypertension 01/24/2015 Respiratory No productive sputum 2014 Respiratory No chest tightness 2014 Respiratory No cough 01/24/2015 Gastrointestinal No abdominal pain 2014 Gastrointestinal No constipation 2014 Gastrointestinal No diarrhea 01/24/2015 Gastrointestinal No nausea 01/24/2015 Gastrointestinal No vomiting 01/24/2015 Genitourinary/Nephrology No dysuria 01/24 Musculoskeletal stiffness 01/24/2015 Musculoskeletal arthralgia(s) 01/24/2015 Musculoskeletal back pain 01/24/2015 Musculoskeletal joint complaint 2014 Musculoskeletal myalgias 01/24/2015 Dermatologic No rash 01/24/2015 Dermatologic No sores 01/24/2015 Neurologic gait abnormality 01/24/2015 Psychiatric anxiety 01/24/2015 Psychiatric depression 01/24/2015 Constitutional insomnia 01/24/2015 Constitutional No malaise 01/24/2015 Constitutional recent illness 12/23/2014 Constitutional No anorexia 12/23/2014 Constitutional No night sweats 2014 Constitutional No chills 12/23/2014 Constitutional No diaphoresis 12/23/2014 Constitutional fatigue 12/23/2014 Constitutional No fever 12/23/2014 Eyes No eye discharge 12/23/2014 Eyes No eye erythema 12/23/2014 Ears/Nose/Throat/Neck No dizziness 2014 Ears/Nose/Throat/Neck No headache 2014 Ears/Nose/Throat/Neck No nasal allergies 12/23/2014 Ears/Nose/Throat/Neck No nasal discharge 12/23/2014 Ears/Nose/Throat/Neck No otalgia 2014 Cardiovascular hypertension 12/23/2014 Respiratory No productive sputum 2014 Respiratory No chest tightness 2014 Respiratory No cough 12/23/2014 Gastrointestinal No abdominal pain 2014 Gastrointestinal No constipation 2014 Gastrointestinal No diarrhea 12/23/2014 Gastrointestinal No nausea 12/23/2014 Gastrointestinal No vomiting 12/23/2014 Genitourinary/Nephrology No dysuria 12/23 Musculoskeletal back pain 12/23/2014 Musculoskeletal joint complaint 2014 Dermatologic No rash 12/23/2014 Dermatologic No sores 12/23/2014 Neurologic gait abnormality 12/23/2014 Psychiatric anxiety 12/23/2014 Psychiatric depression 12/23/2014 Musculoskeletal myalgias 12/23/2014 Musculoskeletal stiffness 12/23/2014 Musculoskeletal arthralgia(s) 12/23/2014 Constitutional No anorexia 10/08/2014 Constitutional No night sweats 2014 Constitutional No chills 10/08/2014 Constitutional No diaphoresis 10/08/2014 Constitutional fatigue 10/08/2014 Constitutional No fever 10/08/2014 Eyes No eye discharge 10/08/2014 Eyes No eye erythema 10/08/2014 Ears/Nose/Throat/Neck No dizziness 2014 Ears/Nose/Throat/Neck No headache 2014 Ears/Nose/Throat/Neck No nasal allergies 10/08/2014 Ears/Nose/Throat/Neck No nasal discharge 10/08/2014 Ears/Nose/Throat/Neck No otalgia 2014 Cardiovascular dyspnea 10/08/2014 Cardiovascular hypertension 10/08/2014 Respiratory No productive sputum 2014 Respiratory No chest tightness 2014 Respiratory No cough 10/08/2014 Gastrointestinal No abdominal pain 2014 Gastrointestinal No constipation 2014 Gastrointestinal No diarrhea 10/08/2014 Gastrointestinal No nausea 10/08/2014 Gastrointestinal No vomiting 10/08/2014 Genitourinary/Nephrology No dysuria 10/08 Musculoskeletal back pain 10/08/2014 Musculoskeletal joint complaint 2014 Dermatologic No rash 10/08/2014 Dermatologic No sores 10/08/2014 Neurologic gait abnormality 10/08/2014 Psychiatric anxiety 10/08/2014 Psychiatric depression 10/08/2014 Constitutional recent illness 10/08/2014 Constitutional No anorexia 09/24/2014 Constitutional No night sweats 2014 Constitutional No chills 09/24/2014 Constitutional No diaphoresis 09/24/2014 Constitutional fatigue 09/24/2014 Constitutional No fever 09/24/2014 Eyes No eye discharge 09/24/2014 Eyes No eye erythema 09/24/2014 Ears/Nose/Throat/Neck No dizziness 2014 Ears/Nose/Throat/Neck No headache 2014 Ears/Nose/Throat/Neck No nasal allergies 09/24/2014 Ears/Nose/Throat/Neck No nasal discharge 09/24/2014 Ears/Nose/Throat/Neck No otalgia 2014 Respiratory No productive sputum 2014 Respiratory No chest tightness 2014 Respiratory No cough 09/24/2014 Gastrointestinal No abdominal pain 2014 Gastrointestinal No constipation 2014 Gastrointestinal No diarrhea 09/24/2014 Gastrointestinal No nausea 09/24/2014 Gastrointestinal No vomiting 09/24/2014 Genitourinary/Nephrology No dysuria 09/24 Musculoskeletal back pain 09/24/2014 Musculoskeletal joint complaint 2014 Dermatologic No rash 09/24/2014 Dermatologic No sores 09/24/2014 Psychiatric anxiety 09/24/2014 Psychiatric depression 09/24/2014 Neurologic gait abnormality 09/24/2014 Cardiovascular hypertension 09/24/2014 Cardiovascular dyspnea 09/24/2014 Constitutional No recent illness 2013 Constitutional No anorexia 07/22/2014 Constitutional No night sweats 2013 Constitutional No chills 07/22/2014 Constitutional No diaphoresis 07/22/2014 Constitutional fatigue 07/22/2014 Constitutional No fever 07/22/2014 Constitutional No insomnia 07/22/2014 Constitutional No malaise 07/22/2014 Constitutional No weight loss 07/22/2014 Constitutional No weight gain 07/22/2014 Eyes No eye discharge 07/22/2014 Eyes No eye erythema 07/22/2014 Cardiovascular No chest pain/pressure 11/2013 Cardiovascular No dyspnea 07/22/2014 Cardiovascular edema 07/22/2014 Cardiovascular fatigue 07/22/2014 Respiratory No cough 07/22/2014 Gastrointestinal No vomiting 07/22/2014 Gastrointestinal No nausea 07/22/2014 Genitourinary/Nephrology No dysuria 07/22 Neurologic No alteration of consciousness 07/22/2014 Constitutional No night sweats 2013 Constitutional No diaphoresis 01/11/2014 Constitutional No fever 01/11/2014 Eyes No vision change 01/11/2014 Ears/Nose/Throat/Neck No dizziness 2013 Ears/Nose/Throat/Neck No headache 2013 Cardiovascular No chest pain/pressure Cardiovascular No dyspnea 01/11/2014 Respiratory No cough 01/11/2014 Gastrointestinal abdominal pain 2013 Gastrointestinal No constipation 2013 Gastrointestinal No diarrhea 01/11/2014 Gastrointestinal No gas and bloating Gastrointestinal No gastroesophageal reflux 01/11/2014 Gastrointestinal No nausea 01/11/2014 Gastrointestinal No vomiting 01/11/2014 Genitourinary/Nephrology No dysuria 01/11 Genitourinary/Nephrology flank pain 01/11 Musculoskeletal arthralgia(s) 01/11/2014 Musculoskeletal back pain 01/11/2014 Dermatologic No rash 01/11/2014 Dermatologic No sores 01/11/2014 Neurologic No alteration of consciousness 01/11/2014 Psychiatric No anxiety 01/11/2014 Psychiatric No depression 01/11/2014 Constitutional No night sweats 2013 Constitutional No diaphoresis 01/07/2014 Eyes No vision change 01/07/2014 Ears/Nose/Throat/Neck No dizziness 2013 Ears/Nose/Throat/Neck No headache 2013 Cardiovascular No chest pain/pressure Cardiovascular No dyspnea 01/07/2014 Respiratory No cough 01/07/2014 Gastrointestinal abdominal pain 2013 Gastrointestinal No constipation 2013 Gastrointestinal No diarrhea 01/07/2014 Gastrointestinal No nausea 01/07/2014 Gastrointestinal No vomiting 01/07/2014 Genitourinary/Nephrology No dysuria 01/07 Musculoskeletal arthralgia(s) 01/07/2014 Dermatologic No rash 01/07/2014 Dermatologic No sores 01/07/2014 Neurologic No alteration of consciousness 01/07/2014 Psychiatric No anxiety 01/07/2014 Psychiatric No depression 01/07/2014 Constitutional No fever 01/07/2014 Gastrointestinal No gas and bloating Gastrointestinal No gastroesophageal reflux 01/07/2014 Genitourinary/Nephrology flank pain 01/07 Musculoskeletal back pain 01/07/2014 Constitutional recent illness 10/30/2013 Constitutional No anorexia 10/30/2013 Constitutional No night sweats 2013 Constitutional No chills 10/30/2013 Constitutional No diaphoresis 10/30/2013 Constitutional fatigue 10/30/2013 Constitutional No fever 10/30/2013 Constitutional No insomnia 10/30/2013 Constitutional No malaise 10/30/2013 Eyes No eye erythema 10/30/2013 Eyes No eye discharge 10/30/2013 Ears/Nose/Throat/Neck No dizziness 2013 Ears/Nose/Throat/Neck No nasal discharge 10/30/2013 Ears/Nose/Throat/Neck sinus congestion Cardiovascular No chest pain/pressure 07/2014 Respiratory No cough 10/30/2013 Genitourinary/Nephrology No dysuria 10/30 Dermatologic No sores 10/30/2013 Dermatologic No rash 10/30/2013 Neurologic No alteration of consciousness 10/30/2013 Constitutional No recent illness 2013 Constitutional No anorexia 09/25/2013 Constitutional No night sweats 2013 Constitutional No chills 09/25/2013 Constitutional No diaphoresis 09/25/2013 Constitutional No fatigue 09/25/2013 Constitutional No fever 09/25/2013 Constitutional No insomnia 09/25/2013 Constitutional No malaise 09/25/2013 Eyes No eye discharge 09/25/2013 Eyes No eye erythema 09/25/2013 Ears/Nose/Throat/Neck No dizziness 2013 Ears/Nose/Throat/Neck No headache 2013 Respiratory No cough 09/25/2013 Gastrointestinal No abdominal pain 2013 Gastrointestinal No constipation 2013 Gastrointestinal No diarrhea 09/25/2013 Gastrointestinal No nausea 09/25/2013 Gastrointestinal No vomiting 09/25/2013 Genitourinary/Nephrology No dysuria 09/25 Constitutional No chills 08/20/2013 Constitutional No fever 08/20/2013 Eyes No eye discharge 08/20/2013 Eyes No eye erythema 08/20/2013 Ears/Nose/Throat/Neck No nasal discharge 08/20/2013 Ears/Nose/Throat/Neck No headache 2012 Ears/Nose/Throat/Neck No dizziness 2012 Ears/Nose/Throat/Neck No otalgia 2012 Ears/Nose/Throat/Neck No sinus congestion 08/20/2013 Cardiovascular edema 08/20/2013 Cardiovascular No chest pain/pressure 10/2012 Cardiovascular No dyspnea 08/20/2013 Cardiovascular No palpitations 2012 Cardiovascular fatigue 08/20/2013 Cardiovascular near-syncope/dizziness 10/2012 Respiratory No cough 08/20/2013 Gastrointestinal No abdominal pain 2012 Gastrointestinal No anorexia 08/20/2013 Gastrointestinal No constipation 2012 Gastrointestinal nausea 08/20/2013 Gastrointestinal No vomiting 08/20/2013 Genitourinary/Nephrology No dysuria 08/20 Musculoskeletal myalgias 08/20/2013 Constitutional fatigue 08/20/2013 Eyes No vision change 08/20/2013 Ears/Nose/Throat/Neck No sore throat 10/2012 Genitourinary/Nephrology No urinary frequency 08/20/2013 Genitourinary/Nephrology No urinary incontinence 08/20/2013 Genitourinary/Nephrology No urinary retention/hesitancy 08/20/2013 Genitourinary/Nephrology No urinary urgency 08/20/2013 Genitourinary/Nephrology No nocturia 10/2012 Gastrointestinal No diarrhea 08/20/2013 Gastrointestinal No dysphagia 08/20/2013 Respiratory No chest congestion 2012 Respiratory No chest tightness 2012 Musculoskeletal back pain 08/20/2013 Musculoskeletal stiffness 08/20/2013 Neurologic No headache 08/20/2013 Constitutional No recent illness 2012 Constitutional No anorexia 07/06/2013 Constitutional No night sweats 2012 Constitutional No chills 07/06/2013 Constitutional No diaphoresis 07/06/2013 Constitutional No fatigue 07/06/2013 Constitutional No fever 07/06/2013 Constitutional No insomnia 07/06/2013 Constitutional No malaise 07/06/2013 Constitutional No recent illness 2012 Constitutional No anorexia 04/30/2013 Constitutional No night sweats 2012 Constitutional No chills 04/30/2013 Constitutional No diaphoresis 04/30/2013 Constitutional No fatigue 04/30/2013 Constitutional No fever 04/30/2013 Constitutional No insomnia 04/30/2013 Constitutional No malaise 04/30/2013 Constitutional No weight loss 04/30/2013 Constitutional No weight gain 04/30/2013 Eyes No vision change 04/30/2013 Ears/Nose/Throat/Neck No dizziness 2012 Ears/Nose/Throat/Neck No headache 2012 Cardiovascular No chest pain/pressure 08/2013 Cardiovascular No dyspnea 04/30/2013 Respiratory No cough 04/30/2013 Gastrointestinal No abdominal pain 2012 Gastrointestinal No constipation 2012 Gastrointestinal No diarrhea 04/30/2013 Gastrointestinal No vomiting 04/30/2013 Gastrointestinal No nausea 04/30/2013 Genitourinary/Nephrology No dysuria 04/30 Musculoskeletal arthralgia(s) 04/30/2013 Dermatologic No rash 04/30/2013 Dermatologic No sores 04/30/2013 Neurologic No alteration of consciousness 04/30/2013 Psychiatric No depression 04/30/2013 Psychiatric No anxiety 04/30/2013 Constitutional No recent illness 2012 Constitutional No anorexia 12/29/2012 Constitutional No night sweats 2012 Constitutional No chills 12/29/2012 Constitutional No diaphoresis 12/29/2012 Constitutional No fatigue 12/29/2012 Constitutional No fever 12/29/2012 Constitutional No insomnia 12/29/2012 Constitutional No malaise 12/29/2012 Eyes No eye discharge 12/29/2012 Eyes No eye erythema 12/29/2012 Ears/Nose/Throat/Neck nasal allergies 08/2013 Ears/Nose/Throat/Neck nasal discharge 08/2013 Ears/Nose/Throat/Neck No dizziness 2012 Ears/Nose/Throat/Neck No headache 2012 Ears/Nose/Throat/Neck No sore throat 08/2013 Ears/Nose/Throat/Neck No sinus congestion 12/29/2012 Cardiovascular No chest pain/pressure 08/2013 Respiratory No productive sputum 2012 Respiratory No chest congestion 2012 Respiratory No cough 12/29/2012 Gastrointestinal No abdominal pain 2012 Gastrointestinal No constipation 2012 Gastrointestinal diarrhea 12/29/2012 Gastrointestinal No vomiting 12/29/2012 Gastrointestinal No nausea 12/29/2012 Genitourinary/Nephrology No dysuria 12/29 Dermatologic No rash 12/29/2012 Dermatologic No sores 12/29/2012 Constitutional No recent illness 2012 Constitutional No chills 10/26/2012 Constitutional fatigue 10/26/2012 Constitutional No fever 10/26/2012 Constitutional No insomnia 10/26/2012 Constitutional No malaise 10/26/2012 Ears/Nose/Throat/Neck No dental pain 03/2013 Ears/Nose/Throat/Neck No dizziness 2012 Ears/Nose/Throat/Neck No dysphagia 2012 Ears/Nose/Throat/Neck No headache 2012 Ears/Nose/Throat/Neck No hearing loss 03/2013 Ears/Nose/Throat/Neck No nasal allergies 10/26/2012 Ears/Nose/Throat/Neck No sore throat 03/2013 Ears/Nose/Throat/Neck No postnasal drip 10/26/2012 Ears/Nose/Throat/Neck No sinus congestion 10/26/2012 Cardiovascular No chest pain/pressure 03/2013 Cardiovascular No dyspnea 10/26/2012 Cardiovascular No edema 10/26/2012 Cardiovascular No exercise intolerance Cardiovascular No fatigue 10/26/2012 Cardiovascular No near-syncope/dizziness 10/26/2012 Respiratory No chest tightness 2012 Respiratory No cigarette smoking 2012 Respiratory No cough 10/26/2012 Respiratory No dyspnea 10/26/2012 Respiratory No pedal edema 10/26/2012 Respiratory No snoring 10/26/2012 Respiratory No wheezing 10/26/2012 Gastrointestinal No hemorrhoids 2012 Gastrointestinal No abdominal pain 2012 Gastrointestinal No constipation 2012 Gastrointestinal No diarrhea 10/26/2012 Gastrointestinal No gastroesophageal reflux 10/26/2012 Gastrointestinal No melena 10/26/2012 Gastrointestinal No nausea 10/26/2012 Gastrointestinal No vomiting 10/26/2012 Musculoskeletal No stiffness 10/26/2012 Musculoskeletal No swelling 10/26/2012 Musculoskeletal No muscle weakness 2012 Musculoskeletal No myalgias 10/26/2012 Psychiatric No anxiety 10/26/2012 Psychiatric No depression 10/26/2012 Allergy/Immunology No food allergy 2012 Allergy/Immunology No urticaria 2012 Endocrine hair loss 10/26/2012 Endocrine No polyuria 10/26/2012 Endocrine No weakness 10/26/2012 Endocrine No flushing 10/26/2012 Constitutional No recent illness 2011 Constitutional No anorexia 07/12/2012 Constitutional No night sweats 2011 Constitutional No chills 07/12/2012 Constitutional No diaphoresis 07/12/2012 Constitutional fatigue 07/12/2012 Constitutional No fever 07/12/2012 Constitutional No insomnia 07/12/2012 Constitutional No malaise 07/12/2012 Eyes No eye discharge 07/12/2012 Eyes No eye erythema 07/12/2012 Ears/Nose/Throat/Neck No dizziness 2011 Ears/Nose/Throat/Neck No headache 2011 Ears/Nose/Throat/Neck No nasal allergies 07/12/2012 Ears/Nose/Throat/Neck No nasal discharge 07/12/2012 Ears/Nose/Throat/Neck No otalgia 2011 Respiratory No productive sputum 2011 Respiratory No chest tightness 2011 Respiratory No cough 07/12/2012 Gastrointestinal No abdominal pain 2011 Gastrointestinal No constipation 2011 Gastrointestinal No diarrhea 07/12/2012 Gastrointestinal No nausea 07/12/2012 Gastrointestinal No vomiting 07/12/2012 Genitourinary/Nephrology No dysuria 07/12 Musculoskeletal back pain 07/12/2012 Musculoskeletal No joint complaint 2011 Dermatologic No rash 07/12/2012 Dermatologic No sores 07/12/2012 Constitutional No recent illness 2011 Constitutional No anorexia 06/28/2012 Constitutional No night sweats 2011 Constitutional No chills 06/28/2012 Constitutional No diaphoresis 06/28/2012 Constitutional fatigue 06/28/2012 Constitutional No fever 06/28/2012 Constitutional No insomnia 06/28/2012 Constitutional No malaise 06/28/2012 Eyes No eye discharge 06/28/2012 Eyes No eye erythema 06/28/2012 Ears/Nose/Throat/Neck No dizziness 2011 Ears/Nose/Throat/Neck No headache 2011 Ears/Nose/Throat/Neck No nasal discharge 06/28/2012 Respiratory No productive sputum 2011 Respiratory No cough 06/28/2012 Respiratory No chest congestion 2011 Gastrointestinal No abdominal pain 2011 Gastrointestinal No nausea 06/28/2012 Gastrointestinal No vomiting 06/28/2012 Genitourinary/Nephrology No dysuria 06/28 Musculoskeletal No joint complaint 2011 Dermatologic No rash 06/28/2012 Dermatologic No sores 06/28/2012 Constitutional No recent illness 2011 Constitutional No anorexia 05/24/2012 Constitutional No night sweats 2011 Constitutional No chills 05/24/2012 Constitutional No diaphoresis 05/24/2012 Constitutional fatigue 05/24/2012 Constitutional No fever 05/24/2012 Constitutional No insomnia 05/24/2012 Constitutional No malaise 05/24/2012 Eyes No eye discharge 05/24/2012 Eyes No eye erythema 05/24/2012 Ears/Nose/Throat/Neck No dizziness 2011 Ears/Nose/Throat/Neck No headache 2011 Ears/Nose/Throat/Neck No nasal allergies 05/24/2012 Ears/Nose/Throat/Neck No nasal discharge 05/24/2012 Ears/Nose/Throat/Neck No otalgia 2011 Respiratory No productive sputum 2011 Respiratory No chest tightness 2011 Respiratory No cough 05/24/2012 Gastrointestinal No abdominal pain 2011 Gastrointestinal No constipation 2011 Gastrointestinal No diarrhea 05/24/2012 Gastrointestinal No nausea 05/24/2012 Gastrointestinal No vomiting 05/24/2012 Genitourinary/Nephrology No dysuria 05/24 Musculoskeletal back pain 05/24/2012 Musculoskeletal No joint complaint 2011 Dermatologic No rash 05/24/2012 Dermatologic No sores 05/24/2012 Constitutional No recent illness 2011 Constitutional No anorexia 05/09/2012 Constitutional No night sweats 2011 Constitutional No chills 05/09/2012 Constitutional No diaphoresis 05/09/2012 Constitutional fatigue 05/09/2012 Constitutional No fever 05/09/2012 Constitutional No insomnia 05/09/2012 Constitutional No malaise 05/09/2012 Eyes No eye discharge 05/09/2012 Eyes No eye erythema 05/09/2012 Ears/Nose/Throat/Neck No dizziness 2011 Ears/Nose/Throat/Neck No headache 2011 Ears/Nose/Throat/Neck No nasal allergies 05/09/2012 Ears/Nose/Throat/Neck No nasal discharge 05/09/2012 Ears/Nose/Throat/Neck No otalgia 2011 Respiratory No productive sputum 2011 Respiratory No chest tightness 2011 Respiratory No cough 05/09/2012 Gastrointestinal No abdominal pain 2011 Gastrointestinal No constipation 2011 Gastrointestinal No diarrhea 05/09/2012 Gastrointestinal No nausea 05/09/2012 Gastrointestinal No vomiting 05/09/2012 Genitourinary/Nephrology No dysuria 05/09 Musculoskeletal back pain 05/09/2012 Musculoskeletal No joint complaint 2011 Dermatologic No rash 05/09/2012 Dermatologic No sores 05/09/2012 Constitutional recent illness 01/31/2012 Constitutional No chills 01/31/2012 Constitutional No diaphoresis 01/31/2012 Constitutional No fatigue 01/31/2012 Constitutional No fever 01/31/2012 Constitutional No insomnia 01/31/2012 Eyes No eye discharge 01/31/2012 Eyes No eye erythema 01/31/2012 Ears/Nose/Throat/Neck No dizziness 2011 Ears/Nose/Throat/Neck No headache 2011 Ears/Nose/Throat/Neck nasal allergies Ears/Nose/Throat/Neck nasal discharge Ears/Nose/Throat/Neck No otalgia 2011 Ears/Nose/Throat/Neck sinus congestion Ears/Nose/Throat/Neck sore throat 2011 Cardiovascular No chest pain/pressure Respiratory productive sputum 01/31/2012 Respiratory No chest congestion 2011 Respiratory cough 01/31/2012 Respiratory No wheezing 01/31/2012 Respiratory No dyspnea on exertion 2011 Respiratory No dyspnea 01/31/2012 Gastrointestinal No abdominal pain 2011 Gastrointestinal No constipation 2011 Gastrointestinal diarrhea 01/31/2012 Gastrointestinal No vomiting 01/31/2012 Gastrointestinal No nausea 01/31/2012 Dermatologic No rash 01/31/2012 Musculoskeletal No joint complaint 2011 Genitourinary/Nephrology No dysuria 01/30 Gastrointestinal diarrhea 12/29/2011 Gastrointestinal No nausea 12/29/2011 Gastrointestinal No vomiting 12/29/2011 Genitourinary/Nephrology dysuria 2011 Musculoskeletal No joint complaint 2011 Dermatologic rash 12/29/2011 Neurologic No alteration of consciousness 12/29/2011 Constitutional No recent illness 2011 Constitutional fatigue 12/29/2011 Constitutional diaphoresis 12/29/2011 Constitutional chills 12/29/2011 Constitutional fever 12/29/2011 Eyes No eye discharge 12/29/2011 Eyes No eye erythema 12/29/2011 Ears/Nose/Throat/Neck No dizziness 2011 Ears/Nose/Throat/Neck No headache 2011 Ears/Nose/Throat/Neck No nasal allergies 12/29/2011 Ears/Nose/Throat/Neck No nasal discharge 12/29/2011 Ears/Nose/Throat/Neck No sore throat 07/2012 Cardiovascular No chest pain/pressure 07/2012 Respiratory No productive sputum 2011 Respiratory No chest congestion 2011 Respiratory No cough 12/29/2011 Gastrointestinal No abdominal pain 2011 Gastrointestinal No constipation 2011 Constitutional No recent illness 2011 Constitutional No anorexia 12/20/2011 Constitutional No night sweats 2011 Constitutional No chills 12/20/2011 Constitutional No diaphoresis 12/20/2011 Constitutional No fatigue 12/20/2011 Constitutional No fever 12/20/2011 Eyes No eye discharge 12/20/2011 Eyes No eye erythema 12/20/2011 Ears/Nose/Throat/Neck No dizziness 2011 Ears/Nose/Throat/Neck No epistaxis 2011 Ears/Nose/Throat/Neck No headache 2011 Cardiovascular No chest pain/pressure 10/2011 Cardiovascular No claudication 2011 Cardiovascular No dyspnea 12/20/2011 Cardiovascular No syncope 12/20/2011 Respiratory No productive sputum 2011 Respiratory No chest congestion 2011 Respiratory No cough 12/20/2011 Gastrointestinal No abdominal pain 2011 Gastrointestinal No constipation 2011 Gastrointestinal No diarrhea 12/20/2011 Gastrointestinal No vomiting 12/20/2011 Gastrointestinal No nausea 12/20/2011 Genitourinary/Nephrology No dysuria 12/19 Musculoskeletal No stiffness 12/20/2011 Musculoskeletal No joint complaint 2011 Dermatologic No rash 12/20/2011 Dermatologic ecchymosis 12/20/2011 Hematologic/Lymphatic abnormal bleeding and bruising 12/20/2011 Constitutional No recent illness 2010 Constitutional No anorexia 08/31/2011 Constitutional No chills 08/31/2011 Constitutional No fatigue 08/31/2011 Constitutional No fever 08/31/2011 Cardiovascular No chest pain/pressure Cardiovascular No dyspnea 08/31/2011 Respiratory No productive sputum 2010 Respiratory No cough 08/31/2011 Respiratory No chest congestion 2010 Gastrointestinal No abdominal pain 2010 Gastrointestinal No constipation 2010 Gastrointestinal No diarrhea 08/31/2011 Gastrointestinal No vomiting 08/31/2011 Gastrointestinal No nausea 08/31/2011 Musculoskeletal No swelling 08/31/2011 Musculoskeletal joint complaint 2010 Musculoskeletal sciatica 08/31/2011 Dermatologic No rash 08/31/2011 Neurologic No alteration of consciousness 08/31/2011 Neurologic No paresthesia 08/31/2011 Constitutional No fever 08/17/2011 Gastrointestinal No nausea 08/17/2011 Gastrointestinal No vomiting 08/17/2011 Gastrointestinal No constipation 2010 Constitutional No recent illness 2010 Constitutional fatigue 08/17/2011 Constitutional No diaphoresis 08/17/2011 Constitutional No chills 08/17/2011 Cardiovascular No chest pain/pressure Respiratory No chest congestion 2010 Respiratory No cough 08/17/2011 Gastrointestinal No diarrhea 08/17/2011 Gastrointestinal No abdominal pain 2010 Genitourinary/Nephrology No dysuria 08/17 Genitourinary/Nephrology No urinary urgency 08/17/2011 Genitourinary/Nephrology No urinary frequency 08/17/2011 Dermatologic No rash 08/17/2011 Musculoskeletal sciatica 08/17/2011 Musculoskeletal No muscle weakness 2010 Genitourinary/Nephrology No urinary incontinence 08/17/2011 Constitutional fatigue 05/21/2011 Constitutional night sweats 05/21/2011 Constitutional fever 05/21/2011 Gastrointestinal nausea 05/21/2011 Cardiovascular No chest pain/pressure 10/2010 Respiratory No chest congestion 2010 Respiratory No chest tightness 2010 Respiratory No cough 05/21/2011 Genitourinary/Nephrology urinary urgency 05/21/2011 Genitourinary/Nephrology urinary frequency 05/21/2011 Genitourinary/Nephrology No dysuria 05/21 Genitourinary/Nephrology flank pain 05/21 Genitourinary/Nephrology No hematuria 10/2010 Genitourinary/Nephrology No urinary incontinence 05/21/2011 Musculoskeletal back pain 05/21/2011 Musculoskeletal No joint complaint 2010 Neurologic pain, back 05/21/2011 Psychiatric No anxiety 05/21/2011 Psychiatric No depression 05/21/2011 Physical Exam Exam Name System Name Item Name Status Result Effective Dates Notes Full Exam - Dermatology Constitutional general appearance Overall: well nourished 09/14/2017 None Full Exam - Dermatology Constitutional general appearance Overall: well developed 09/14/2017 None Full Exam - Dermatology Constitutional general appearance Overall: in no acute distress 09/14/2017 None Full Exam - Dermatology Constitutional general appearance Overall: of normal body habitus 09/14/2017 None Full Exam - Dermatology Constitutional general appearance Overall: well groomed 09/14/2017 None Full Exam - Dermatology Integument insp & palp - left upper extremity Distribution: localized 09/14/2017 None Full Exam - Dermatology Integument insp & palp - left upper extremity Location: on the fingers 09/14/2017 None Full Exam - Dermatology Psychiatric orientation Overall: oriented to person, place and time 09/14/2017 None Full Exam - Dermatology Eyes conjunctiva/ eyelids Overall: normal eyelids 09/14/2017 None Full Exam - Dermatology Eyes conjunctiva/ eyelids Overall: clear conjunctiva bilaterally 09/14/2017 None Full Exam - Dermatology Eyes conjunctiva/ eyelids Overall: clear corneas 09/14/2017 None Full Exam - Dermatology Ears/Nose/Throat lips/teeth/gingiva Overall: benign lips 09/14/2017 None Full Exam - Dermatology Respiratory respiratory effort/rhythm Overall: normal rate 09/14/2017 None Full Exam - Dermatology Respiratory respiratory effort/rhythm Overall: no retractions 09/14/2017 None Full Exam - Dermatology Musculoskeletal head and neck Overall: head atraumatic 09/14/2017 None Full Exam - Dermatology Psychiatric mood and affect Overall: normal mood and affect 09/14/2017 None Full Exam - Dermatology Integument insp & palp - left upper extremity Color: erythematous 09/14/2017 left ring finger - swelling noted from base of finger to tip -increase around nailplate Full Exam - Dermatology Integument insp & palp - left upper extremity Consistency: tender 09/14/2017 None Full Exam - Dermatology Integument insp & palp - left upper extremity Consistency: indurated 09/14/2017 None Full Exam - Dermatology Integument insp & palp - left upper extremity Consistency: warm 09/14/2017 None Full Exam - Dermatology Constitutional general appearance Overall: well nourished 08/09/2017 None Full Exam - Dermatology Constitutional general appearance Overall: well developed 08/09/2017 None Full Exam - Dermatology Constitutional general appearance Overall: in no acute distress 08/09/2017 None Full Exam - Dermatology Constitutional general appearance Overall: of normal body habitus 08/09/2017 None Full Exam - Dermatology Constitutional general appearance Overall: well groomed 08/09/2017 None Full Exam - Dermatology Integument insp & palp - left upper extremity Distribution: localized 08/09/2017 None Full Exam - Dermatology Integument insp & palp - left upper extremity Location: on the fingers 08/09/2017 left ring finger -erythema improved-extends to DIP joint only -pustular drainage expresses from base of nail Full Exam - Dermatology Psychiatric orientation Overall: oriented to person, place and time 08/09/2017 None Full Exam - Dermatology Constitutional general appearance Overall: well nourished 08/08/2017 None Full Exam - Dermatology Constitutional general appearance Overall: well developed 08/08/2017 None Full Exam - Dermatology Constitutional general appearance Overall: in no acute distress 08/08/2017 None Full Exam - Dermatology Constitutional general appearance Overall: of normal body habitus 08/08/2017 None Full Exam - Dermatology Constitutional general appearance Overall: well groomed 08/08/2017 None Full Exam - Dermatology Psychiatric orientation Overall: oriented to person, place and time 08/08/2017 None Full Exam - Dermatology Integument insp & palp - left upper extremity Distribution: localized 08/08/2017 None Full Exam - Dermatology Integument insp & palp - left upper extremity Location: on the fingers 08/08/2017 left ring finger -swelling noted from base of finger to tip -increase around nailplate - minimal drainage -slight erythema Full Exam - General 1994 Constitutional general appearance Overall: well developed 06/10/2017 None Full Exam - General 1994 Constitutional general appearance Overall: in no acute distress 06/10/2017 None Full Exam - General 1994 Constitutional general appearance Overall: well nourished 06/10/2017 None Full Exam - General 1994 Eyes pupils and irises Overall: pupils equal, round, reactive to light and accomodation 06/10/2017 None Full Exam - General 1994 Ears/Nose/Throat otoscopic exam Overall: external auditory canals clear 06/10/2017 None Full Exam - General 1994 Ears/Nose/Throat otoscopic exam Overall: tympanic membranes clear 06/10/2017 None Full Exam - General 1994 Ears/Nose/Throat oral cavity/pharynx/larynx Overall: oral mucosa clear 06/10/2017 None Full Exam - General 1994 Ears/Nose/Throat oral cavity/pharynx/larynx Overall: oropharyngeal mucosa clear 06/10/2017 None Full Exam - General 1994 Ears/Nose/Throat oral cavity/pharynx/larynx Overall: no masses 06/10/2017 None Full Exam - General 1994 Respiratory auscultation Overall: breath sounds clear bilaterally 06/10/2017 None Full Exam - General 1994 Respiratory respiratory effort/rhythm Overall: no retractions 06/10/2017 None Full Exam - General 1994 Respiratory respiratory effort/rhythm Overall: normal rate 06/10/2017 None Full Exam - General 1994 Cardiovascular extremities Overall: no clubbing 06/10/2017 None Full Exam - General 1994 Cardiovascular auscultation of heart Overall: regular rate 06/10/2017 None Full Exam - General 1994 Cardiovascular auscultation of heart Overall: normal heart sounds 06/10/2017 None Full Exam - General 1994 Cardiovascular auscultation of heart Rate: regular rate 06/10/2017 None Full Exam - General 1994 Abdomen abdominal exam Overall: no tenderness 06/10/2017 None Full Exam - General 1994 Abdomen abdominal exam Overall: normal bowel sounds 06/10/2017 None Full Exam - General 1994 Lymphatic neck nodes Overall: anterior cervical chain benign 06/10/2017 None Full Exam - General 1994 Lymphatic neck nodes Overall: posterior cervical chain benign 06/10/2017 None Full Exam - General 1994 Musculoskeletal gait and station Gait: asymmetric 06/10/2017 None Full Exam - General 1994 Neurologic cranial nerves Overall: crainial nerves 2 - 12 grossly intact 06/10/2017 None Full Exam - General 1994 Psychiatric orientation/consciousness Overall: oriented to person, place and time 06/10/2017 None Full Exam - General 1994 Integument inspection of skin Location: left foot 06/10/2017 None Full Exam - General 1994 Integument inspection of skin Dermatitis: excoriation 06/10/2017 None Full Exam - General 1994 Constitutional general appearance Overall: well developed 03/04/2017 None Full Exam - General 1994 Constitutional general appearance Overall: in no acute distress 03/04/2017 None Full Exam - General 1994 Constitutional general appearance Overall: well nourished 03/04/2017 None Full Exam - General 1994 Psychiatric orientation/consciousness Overall: oriented to person, place and time 03/04/2017 None Full Exam - General 1994 Respiratory auscultation Overall: breath sounds clear bilaterally 03/04/2017 None Full Exam - General 1994 Respiratory respiratory effort/rhythm Overall: normal rate 03/04/2017 None Full Exam - General 1994 Respiratory respiratory effort/rhythm Overall: no retractions 03/04/2017 None Full Exam - General 1994 Cardiovascular auscultation of heart Overall: regular rate 03/04/2017 None Full Exam - General 1994 Cardiovascular auscultation of heart Overall: normal heart sounds 03/04/2017 None Full Exam - General 1994 Cardiovascular auscultation of heart Overall: no murmurs 03/04/2017 None Full Exam - General 1994 Integument inspection of skin Location: buttocks 03/04/2017 right buttock with vesicular rash noted near gluteal fold Full Exam - General 1994 Integument inspection of skin Location: inguinal area 03/04/2017 papule left groin- unroofed today in the office-no drainage or erythema noted Full Exam - General 1994 Constitutional general appearance Overall: well developed 12/17/2016 None Full Exam - General 1994 Constitutional general appearance Overall: in no acute distress 12/17/2016 None Full Exam - General 1994 Constitutional general appearance Overall: well nourished 12/17/2016 None Full Exam - General 1994 Eyes pupils and irises Overall: pupils equal, round, reactive to light and accomodation 12/17/2016 None Full Exam - General 1994 Ears/Nose/Throat otoscopic exam Overall: external auditory canals clear 12/17/2016 None Full Exam - General 1994 Ears/Nose/Throat otoscopic exam Overall: tympanic membranes clear 12/17/2016 None Full Exam - General 1994 Ears/Nose/Throat oral cavity/pharynx/larynx Overall: oral mucosa clear 12/17/2016 None Full Exam - General 1994 Ears/Nose/Throat oral cavity/pharynx/larynx Overall: oropharyngeal mucosa clear 12/17/2016 None Full Exam - General 1994 Ears/Nose/Throat oral cavity/pharynx/larynx Overall: no masses 12/17/2016 None Full Exam - General 1994 Respiratory auscultation Overall: breath sounds clear bilaterally 12/17/2016 None Full Exam - General 1994 Respiratory respiratory effort/rhythm Overall: no retractions 12/17/2016 None Full Exam - General 1994 Respiratory respiratory effort/rhythm Overall: normal rate 12/17/2016 None Full Exam - General 1994 Cardiovascular extremities Overall: no clubbing 12/17/2016 None Full Exam - General 1994 Cardiovascular auscultation of heart Overall: regular rate 12/17/2016 None Full Exam - General 1994 Cardiovascular auscultation of heart Overall: normal heart sounds 12/17/2016 None Full Exam - General 1994 Cardiovascular auscultation of heart Rate: regular rate 12/17/2016 None Full Exam - General 1994 Abdomen abdominal exam Overall: no tenderness 12/17/2016 None Full Exam - General 1994 Abdomen abdominal exam Overall: normal bowel sounds 12/17/2016 None Full Exam - General 1994 Lymphatic neck nodes Overall: anterior cervical chain benign 12/17/2016 None Full Exam - General 1994 Lymphatic neck nodes Overall: posterior cervical chain benign 12/17/2016 None Full Exam - General 1994 Integument inspection of skin Overall: no rash, lesions 12/17/2016 None Full Exam - General 1994 Neurologic cranial nerves Overall: crainial nerves 2 - 12 grossly intact 12/17/2016 None Full Exam - General 1994 Psychiatric orientation/consciousness Overall: oriented to person, place and time 12/17/2016 None Full Exam - General 1994 Musculoskeletal gait and station Gait: asymmetric 12/17/2016 None Full Exam - General 1994 Constitutional general appearance Overall: well developed 11/25/2016 None Full Exam - General 1994 Constitutional general appearance Overall: in no acute distress 11/25/2016 None Full Exam - General 1994 Constitutional general appearance Overall: well nourished 11/25/2016 None Full Exam - General 1994 Eyes pupils and irises Overall: pupils equal, round, reactive to light and accomodation 11/25/2016 None Full Exam - General 1994 Ears/Nose/Throat otoscopic exam Overall: external auditory canals clear 11/25/2016 None Full Exam - General 1994 Ears/Nose/Throat otoscopic exam Overall: tympanic membranes clear 11/25/2016 None Full Exam - General 1994 Ears/Nose/Throat oral cavity/pharynx/larynx Overall: oral mucosa clear 11/25/2016 None Full Exam - General 1994 Ears/Nose/Throat oral cavity/pharynx/larynx Overall: oropharyngeal mucosa clear 11/25/2016 None Full Exam - General 1994 Ears/Nose/Throat oral cavity/pharynx/larynx Overall: no masses 11/25/2016 None Full Exam - General 1994 Respiratory respiratory effort/rhythm Overall: no retractions 11/25/2016 None Full Exam - General 1994 Respiratory respiratory effort/rhythm Overall: normal rate 11/25/2016 None Full Exam - General 1994 Cardiovascular extremities Overall: no clubbing 11/25/2016 None Full Exam - General 1994 Cardiovascular auscultation of heart Overall: regular rate 11/25/2016 None Full Exam - General 1994 Cardiovascular auscultation of heart Overall: normal heart sounds 11/25/2016 None Full Exam - General 1994 Cardiovascular auscultation of heart Rate: regular rate 11/25/2016 None Full Exam - General 1994 Abdomen abdominal exam Overall: no tenderness 11/25/2016 None Full Exam - General 1994 Abdomen abdominal exam Overall: normal bowel sounds 11/25/2016 None Full Exam - General 1994 Lymphatic neck nodes Overall: anterior cervical chain benign 11/25/2016 None Full Exam - General 1994 Lymphatic neck nodes Overall: posterior cervical chain benign 11/25/2016 None Full Exam - General 1994 Musculoskeletal upper extremity Palpation - shoulder: pain with resisted abduction 11/25/2016 None Full Exam - General 1994 Musculoskeletal upper extremity Palpation - upper arm: tenderness 11/25/2016 None Full Exam - General 1994 Integument inspection of skin Overall: no rash, lesions 11/25/2016 None Full Exam - General 1994 Neurologic cranial nerves Overall: crainial nerves 2 - 12 grossly intact 11/25/2016 None Full Exam - General 1994 Psychiatric orientation/consciousness Overall: oriented to person, place and time 11/25/2016 None Full Exam - General 1994 Respiratory auscultation Overall: breath sounds clear bilaterally 11/25/2016 None Full Exam - General 1994 Constitutional general appearance Overall: well developed 11/18/2016 None Full Exam - General 1994 Constitutional general appearance Overall: in no acute distress 11/18/2016 None Full Exam - General 1994 Constitutional general appearance Overall: well nourished 11/18/2016 None Full Exam - General 1994 Eyes pupils and irises Overall: pupils equal, round, reactive to light and accomodation 11/18/2016 None Full Exam - General 1994 Ears/Nose/Throat otoscopic exam Overall: external auditory canals clear 11/18/2016 None Full Exam - General 1994 Ears/Nose/Throat otoscopic exam Overall: tympanic membranes clear 11/18/2016 None Full Exam - General 1994 Ears/Nose/Throat oral cavity/pharynx/larynx Overall: oral mucosa clear 11/18/2016 None Full Exam - General 1994 Ears/Nose/Throat oral cavity/pharynx/larynx Overall: oropharyngeal mucosa clear 11/18/2016 None Full Exam - General 1994 Ears/Nose/Throat oral cavity/pharynx/larynx Overall: no masses 11/18/2016 None Full Exam - General 1994 Respiratory auscultation Lower lung field: crackles 11/18/2016 -improved Full Exam - General 1994 Respiratory respiratory effort/rhythm Overall: no retractions 11/18/2016 None Full Exam - General 1994 Respiratory respiratory effort/rhythm Overall: normal rate 11/18/2016 None Full Exam - General 1994 Cardiovascular extremities Overall: no clubbing 11/18/2016 None Full Exam - General 1994 Cardiovascular auscultation of heart Overall: regular rate 11/18/2016 None Full Exam - General 1994 Cardiovascular auscultation of heart Overall: normal heart sounds 11/18/2016 None Full Exam - General 1994 Cardiovascular auscultation of heart Rate: regular rate 11/18/2016 None Full Exam - General 1994 Abdomen abdominal exam Overall: no tenderness 11/18/2016 None Full Exam - General 1994 Abdomen abdominal exam Overall: normal bowel sounds 11/18/2016 None Full Exam - General 1994 Lymphatic neck nodes Overall: anterior cervical chain benign 11/18/2016 None Full Exam - General 1994 Lymphatic neck nodes Overall: posterior cervical chain benign 11/18/2016 None Full Exam - General 1994 Integument inspection of skin Overall: no rash, lesions 11/18/2016 None Full Exam - General 1994 Neurologic cranial nerves Overall: crainial nerves 2 - 12 grossly intact 11/18/2016 None Full Exam - General 1994 Psychiatric orientation/consciousness Overall: oriented to person, place and time 11/18/2016 None Full Exam - General 1994 Musculoskeletal upper extremity Palpation - shoulder: pain with resisted abduction 11/18/2016 None Full Exam - General 1994 Musculoskeletal upper extremity Palpation - upper arm: tenderness 11/18/2016 None Full Exam - General 1994 Constitutional general appearance Overall: well developed 11/11/2016 None Full Exam - General 1994 Constitutional general appearance Overall: in no acute distress 11/11/2016 None Full Exam - General 1994 Constitutional general appearance Overall: well nourished 11/11/2016 None Full Exam - General 1994 Eyes pupils and irises Overall: pupils equal, round, reactive to light and accomodation 11/11/2016 None Full Exam - General 1994 Ears/Nose/Throat otoscopic exam Overall: external auditory canals clear 11/11/2016 None Full Exam - General 1994 Ears/Nose/Throat otoscopic exam Overall: tympanic membranes clear 11/11/2016 None Full Exam - General 1994 Ears/Nose/Throat oral cavity/pharynx/larynx Overall: oral mucosa clear 11/11/2016 None Full Exam - General 1994 Ears/Nose/Throat oral cavity/pharynx/larynx Overall: oropharyngeal mucosa clear 11/11/2016 None Full Exam - General 1994 Ears/Nose/Throat oral cavity/pharynx/larynx Overall: no masses 11/11/2016 None Full Exam - General 1994 Respiratory respiratory effort/rhythm Overall: no retractions 11/11/2016 None Full Exam - General 1994 Respiratory respiratory effort/rhythm Overall: normal rate 11/11/2016 None Full Exam - General 1994 Cardiovascular extremities Overall: no clubbing 11/11/2016 None Full Exam - General 1994 Cardiovascular auscultation of heart Overall: regular rate 11/11/2016 None Full Exam - General 1994 Cardiovascular auscultation of heart Overall: normal heart sounds 11/11/2016 None Full Exam - General 1994 Cardiovascular auscultation of heart Rate: regular rate 11/11/2016 None Full Exam - General 1994 Abdomen abdominal exam Overall: no tenderness 11/11/2016 None Full Exam - General 1994 Abdomen abdominal exam Overall: normal bowel sounds 11/11/2016 None Full Exam - General 1994 Lymphatic neck nodes Overall: anterior cervical chain benign 11/11/2016 None Full Exam - General 1994 Lymphatic neck nodes Overall: posterior cervical chain benign 11/11/2016 None Full Exam - General 1994 Integument inspection of skin Overall: no rash, lesions 11/11/2016 None Full Exam - General 1994 Neurologic cranial nerves Overall: crainial nerves 2 - 12 grossly intact 11/11/2016 None Full Exam - General 1994 Psychiatric orientation/consciousness Overall: oriented to person, place and time 11/11/2016 None Full Exam - General 1994 Respiratory auscultation Lower lung field: crackles 11/11/2016 None Full Exam - General 1994 Constitutional general appearance Overall: well developed 06/21/2016 None Full Exam - General 1994 Constitutional general appearance Overall: in no acute distress 06/21/2016 None Full Exam - General 1994 Constitutional general appearance Overall: well nourished 06/21/2016 None Full Exam - General 1994 Psychiatric orientation/consciousness Overall: oriented to person, place and time 06/21/2016 None Full Exam - General 1994 Neurologic cranial nerves Overall: crainial nerves 2 - 12 grossly intact 06/21/2016 None Full Exam - General 1994 Integument inspection of skin Overall: few scattered moles, no gross abnormalities 06/21/2016 None Full Exam - General 1994 Musculoskeletal gait and station Overall: normal gait 06/21/2016 None Full Exam - General 1994 Musculoskeletal gait and station Overall: normal station 06/21/2016 None Full Exam - General 1994 Eyes pupils and irises Overall: pupils equal, round, reactive to light and accomodation 06/21/2016 None Full Exam - General 1994 Ears/Nose/Throat otoscopic exam Overall: external auditory canals clear 06/21/2016 None Full Exam - General 1994 Ears/Nose/Throat otoscopic exam Overall: tympanic membranes clear 06/21/2016 None Full Exam - General 1994 Ears/Nose/Throat oral cavity/pharynx/larynx Overall: oral mucosa clear 06/21/2016 None Full Exam - General 1994 Ears/Nose/Throat oral cavity/pharynx/larynx Overall: oropharyngeal mucosa clear 06/21/2016 None Full Exam - General 1994 Ears/Nose/Throat oral cavity/pharynx/larynx Overall: no masses 06/21/2016 None Full Exam - General 1994 Respiratory auscultation Overall: breath sounds clear bilaterally 06/21/2016 None Full Exam - General 1994 Respiratory respiratory effort/rhythm Overall: no retractions 06/21/2016 None Full Exam - General 1994 Respiratory respiratory effort/rhythm Overall: normal rate 06/21/2016 None Full Exam - General 1994 Cardiovascular extremities Overall: no clubbing 06/21/2016 None Full Exam - General 1994 Cardiovascular auscultation of heart Overall: regular rate 06/21/2016 None Full Exam - General 1994 Cardiovascular auscultation of heart Overall: normal heart sounds 06/21/2016 None Full Exam - General 1994 Cardiovascular auscultation of heart Rate: regular rate 06/21/2016 None Full Exam - General 1994 Abdomen abdominal exam Overall: normal bowel sounds 06/21/2016 None Full Exam - General 1994 Lymphatic neck nodes Overall: anterior cervical chain benign 06/21/2016 None Full Exam - General 1994 Lymphatic neck nodes Overall: posterior cervical chain benign 06/21/2016 None Full Exam - General 1994 Integument inspection of skin Overall: no rash, lesions 06/21/2016 None Full Exam - General 1994 Abdomen abdominal exam Upper quadrant: tender to palpation 06/21/2016 mild Full Exam - General 1994 Abdomen abdominal exam Lower quadrant: tender to palpation 06/21/2016 None Full Exam - General 1994 Chest/Breast breast and axillae palpation Overall: breasts non-tender 06/21/2016 None Full Exam - General 1994 Chest/Breast breast and axillae palpation Overall: axillae non-tender 06/21/2016 None Full Exam - General 1994 Chest/Breast breast and axillae palpation Overall: no nipple discharge 06/21/2016 None Full Exam - General 1994 Chest/Breast breast/chest inspection Overall: breasts to symmetric and without lesions 06/21/2016 None Full Exam - General 1994 Chest/Breast breast/chest inspection Overall: normal chest shape 06/21/2016 None Full Exam - General 1994 Genitourinary urethra Overall: no masses 06/21/2016 None Full Exam - General 1994 Genitourinary adnexa/parametria Overall: surgically absent 06/21/2016 None Full Exam - General 1994 Genitourinary cervix Overall: surgically absent 06/21/2016 None Full Exam - General 1994 Genitourinary uterus Overall: surgically absent 06/21/2016 None Full Exam - General 1994 Genitourinary bladder Overall: no tenderness 06/21/2016 None Full Exam - General 1994 Genitourinary labia and vagina Overall: no lesions 06/21/2016 cystocele Full Exam - General 1994 Constitutional general appearance Overall: well developed 05/20/2016 None Full Exam - General 1994 Constitutional general appearance Overall: in no acute distress 05/20/2016 None Full Exam - General 1994 Constitutional general appearance Overall: well nourished 05/20/2016 None Full Exam - General 1994 Psychiatric orientation/consciousness Overall: oriented to person, place and time 05/20/2016 None Full Exam - General 1994 Eyes conjunctiva /eyelids Overall: conjunctiva clear 05/20/2016 None Full Exam - General 1994 Integument inspection of skin Location: buttocks 05/20/2016 None Full Exam - General 1994 Integument inspection of skin Rash/Lesions: ulceration 05/20/2016 0.2cm x 0.2cm x 0.1cm deep ulcer right buttock Full Exam - General 1994 Constitutional general appearance Overall: well developed 01/26/2016 None Full Exam - General 1994 Constitutional general appearance Overall: in no acute distress 01/26/2016 None Full Exam - General 1994 Constitutional general appearance Overall: well nourished 01/26/2016 None Full Exam - General 1994 Eyes pupils and irises Overall: pupils equal, round, reactive to light and accomodation 01/26/2016 None Full Exam - General 1994 Ears/Nose/Throat otoscopic exam Overall: external auditory canals clear 01/26/2016 None Full Exam - General 1994 Ears/Nose/Throat otoscopic exam Overall: tympanic membranes clear 01/26/2016 None Full Exam - General 1994 Ears/Nose/Throat oral cavity/pharynx/larynx Overall: oral mucosa clear 01/26/2016 None Full Exam - General 1994 Ears/Nose/Throat oral cavity/pharynx/larynx Overall: oropharyngeal mucosa clear 01/26/2016 None Full Exam - General 1994 Ears/Nose/Throat oral cavity/pharynx/larynx Overall: no masses 01/26/2016 None Full Exam - General 1994 Respiratory auscultation Overall: breath sounds clear bilaterally 01/26/2016 None Full Exam - General 1994 Respiratory respiratory effort/rhythm Overall: no retractions 01/26/2016 None Full Exam - General 1994 Respiratory respiratory effort/rhythm Overall: normal rate 01/26/2016 None Full Exam - General 1994 Cardiovascular auscultation of heart Overall: regular rate 01/26/2016 None Full Exam - General 1994 Cardiovascular auscultation of heart Overall: normal heart sounds 01/26/2016 None Full Exam - General 1994 Cardiovascular auscultation of heart Rate: regular rate 01/26/2016 None Full Exam - General 1994 Lymphatic neck nodes Overall: anterior cervical chain benign 01/26/2016 None Full Exam - General 1994 Lymphatic neck nodes Overall: posterior cervical chain benign 01/26/2016 None Full Exam - General 1994 Psychiatric orientation/consciousness Overall: oriented to person, place and time 01/26/2016 None Full Exam - General 1994 Neurologic cranial nerves Overall: crainial nerves 2 - 12 grossly intact 01/26/2016 None Full Exam - General 1994 Integument inspection of skin Overall: no rash, lesions 01/26/2016 None Full Exam - General 1994 Abdomen abdominal exam Overall: no tenderness 01/26/2016 None Full Exam - General 1994 Abdomen abdominal exam Overall: normal bowel sounds 01/26/2016 None Full Exam - General 1994 Cardiovascular extremities Overall: no clubbing 01/26/2016 None Full Exam - General 1994 Constitutional general appearance Overall: well developed 11/12/2015 None Full Exam - General 1994 Constitutional general appearance Overall: in no acute distress 11/12/2015 None Full Exam - General 1994 Constitutional general appearance Overall: well nourished 11/12/2015 None Full Exam - General 1994 Eyes pupils and irises Overall: pupils equal, round, reactive to light and accomodation 11/12/2015 None Full Exam - General 1994 Ears/Nose/Throat otoscopic exam Overall: external auditory canals clear 11/12/2015 None Full Exam - General 1994 Ears/Nose/Throat otoscopic exam Overall: tympanic membranes clear 11/12/2015 None Full Exam - General 1994 Ears/Nose/Throat oral cavity/pharynx/larynx Overall: oral mucosa clear 11/12/2015 None Full Exam - General 1994 Ears/Nose/Throat oral cavity/pharynx/larynx Overall: oropharyngeal mucosa clear 11/12/2015 None Full Exam - General 1994 Ears/Nose/Throat oral cavity/pharynx/larynx Overall: no masses 11/12/2015 None Full Exam - General 1994 Respiratory auscultation Overall: breath sounds clear bilaterally 11/12/2015 None Full Exam - General 1994 Respiratory respiratory effort/rhythm Overall: no retractions 11/12/2015 None Full Exam - General 1994 Respiratory respiratory effort/rhythm Overall: normal rate 11/12/2015 None Full Exam - General 1994 Cardiovascular extremities Edema present: severity 1+ - 4 +: TRACE 11/12/2015 None Full Exam - General 1994 Cardiovascular auscultation of heart Overall: regular rate 11/12/2015 None Full Exam - General 1994 Cardiovascular auscultation of heart Overall: normal heart sounds 11/12/2015 None Full Exam - General 1994 Cardiovascular auscultation of heart Rate: regular rate 11/12/2015 None Full Exam - General 1994 Lymphatic neck nodes Overall: anterior cervical chain benign 11/12/2015 None Full Exam - General 1994 Lymphatic neck nodes Overall: posterior cervical chain benign 11/12/2015 None Full Exam - General 1994 Psychiatric orientation/consciousness Overall: oriented to person, place and time 11/12/2015 None Full Exam - General 1994 Cardiovascular extremities Edema present: pitting 11/12/2015 None Full Exam - General 1994 Integument inspection of skin Dermatitis: pustule 11/12/2015 cyst Full Exam - General 1994 Integument inspection of skin Location: left arm 11/12/2015 None Full Exam - General 1994 Integument inspection of skin Location: shoulder 11/12/2015 None Full Exam - General 1994 Integument inspection of skin Pigmentation: erythematous 11/12/2015 None Full Exam - General 1994 Neurologic cranial nerves Overall: crainial nerves 2 - 12 grossly intact 11/12/2015 None Full Exam - Cardiology Eyes conjunctiva/ eyelids Overall: conjunctiva clear 09/29/2015 None Full Exam - Cardiology Eyes conjunctiva/ eyelids Overall: cornea clear 09/29/2015 None Full Exam - Cardiology Eyes conjunctiva/ eyelids Overall: eyelids normal 09/29/2015 None Full Exam - Cardiology Ears/Nose/Throat teeth/gingiva/palate Overall: normal dentition 09/29/2015 None Full Exam - Cardiology Ears/Nose/Throat teeth/gingiva/palate Overall: hard palate benign 09/29/2015 None Full Exam - Cardiology Ears/Nose/Throat teeth/gingiva/palate Overall: soft palate benign 09/29/2015 None Full Exam - Cardiology Ears/Nose/Throat oral mucosa Overall: oral mucosa clear 09/29/2015 None Full Exam - Cardiology Ears/Nose/Throat oral mucosa Overall: no cyanosis 09/29/2015 None Full Exam - Cardiology Respiratory respiratory effort/rhythm Overall: no retractions 09/29/2015 None Full Exam - Cardiology Respiratory respiratory effort/rhythm Overall: normal rate 09/29/2015 None Full Exam - Cardiology Respiratory auscultation Overall: breath sounds clear bilaterally 09/29/2015 None Full Exam - Cardiology Cardiovascular auscultation of heart Overall: regular rate 09/29/2015 None Full Exam - Cardiology Cardiovascular auscultation of heart Overall: normal heart sounds 09/29/2015 None Full Exam - Cardiology Cardiovascular auscultation of heart Overall: no murmurs 09/29/2015 None Full Exam - Cardiology Cardiovascular auscultation of heart Rate: regular rate 09/29/2015 None Full Exam - Cardiology Cardiovascular auscultation of heart Rhythm: regular rhythm 09/29/2015 None Full Exam - Cardiology Cardiovascular auscultation of heart S3 (ventricular gallop): present 09/29/2015 None Full Exam - Cardiology Cardiovascular auscultation of heart S4 (atrial gallop): present 09/29/2015 None Full Exam - Cardiology Cardiovascular extremities Edema present: to knees 09/29/2015 trace bilateral Full Exam - Cardiology Abdomen abdominal exam Overall: no tenderness 09/29/2015 None Full Exam - Cardiology Abdomen abdominal exam Overall: normal bowel sounds 09/29/2015 None Full Exam - Cardiology Abdomen abdominal exam Contour: scaphoid 09/29/2015 None Full Exam - Cardiology Abdomen abdominal exam Left upper quadrant: no mass lesions 09/29/2015 None Full Exam - Cardiology Abdomen abdominal exam Left upper quadrant: soft 09/29/2015 None Full Exam - Cardiology Abdomen abdominal exam Left lower quadrant: no mass lesions 09/29/2015 None Full Exam - Cardiology Abdomen abdominal exam Left lower quadrant: soft 09/29/2015 None Full Exam - Cardiology Abdomen abdominal exam Right upper quadrant: no mass lesions 09/29/2015 None Full Exam - Cardiology Abdomen abdominal exam Right upper quadrant: soft 09/29/2015 None Full Exam - Cardiology Abdomen abdominal exam Right lower quadrant: no mass lesions 09/29/2015 None Full Exam - Cardiology Abdomen abdominal exam Right lower quadrant: soft 09/29/2015 None Full Exam - Cardiology Abdomen abdominal exam Epigastric: no mass lesions 09/29/2015 None Full Exam - Cardiology Abdomen abdominal exam Epigastric: soft 09/29/2015 None Full Exam - Cardiology Abdomen abdominal exam Suprapubic: no mass lesions 09/29/2015 None Full Exam - Cardiology Abdomen abdominal exam Suprapubic: soft 09/29/2015 None Full Exam - Cardiology Abdomen abdominal exam Periumbilical: no mass lesions 09/29/2015 None Full Exam - Cardiology Abdomen abdominal exam Periumbilical: soft 09/29/2015 None Full Exam - Cardiology Musculoskeletal muscle strength and tone Muscle Strength/Tone - right hip: weakness 09/29/2015 None Full Exam - Cardiology Musculoskeletal muscle strength and tone Muscle Strength/Tone - left knee: weakness 09/29/2015 None Full Exam - Cardiology Musculoskeletal gait and station Gait: unable to turn quickly 09/29/2015 None Full Exam - Cardiology Extremities digits and nails Overall: no clubbing 09/29/2015 None Full Exam - Cardiology Extremities digits and nails Overall: digits benign 09/29/2015 None Full Exam - Cardiology Integument inspection/palpation Overall: no rash, lesions 09/29/2015 None Full Exam - Cardiology Neurologic mental status Overall: alert 09/29/2015 None Full Exam - Cardiology Neurologic mental status Overall: oriented 09/29/2015 None Full Exam - Cardiology Neurologic mental status Overall: names 3 objects 09/29/2015 None Full Exam - Cardiology Neurologic mental status Overall: normal serial 7's 09/29/2015 None Full Exam - Cardiology Neurologic mental status Overall: spells words backwards 09/29/2015 None Full Exam - Cardiology Neurologic mental status Overall: normal recall 09/29/2015 None Full Exam - Cardiology Neurologic mental status Level of alertness: alert 09/29/2015 None Full Exam - Cardiology Constitutional general appearance Overall: well nourished 09/29/2015 None Full Exam - Cardiology Constitutional general appearance Overall: well developed 09/29/2015 None Full Exam - Cardiology Constitutional general appearance Overall: in no acute distress 09/29/2015 None Full Exam - Cardiology Constitutional general appearance Development: well developed 09/29/2015 None Full Exam - Cardiology Constitutional general appearance Nourishment: well nourished 09/29/2015 None Full Exam - Cardiology Constitutional general appearance Evidence of Distress: in no acute distress 09/29/2015 None Full Exam - Cardiology Constitutional general appearance Hygiene/Attention to Grooming: good hygiene 09/29/2015 None Full Exam - Cardiology Constitutional general appearance Hygiene/Attention to Grooming: normal grooming 09/29/2015 None Full Exam - Cardiology Eyes conjunctiva/ eyelids Overall: conjunctiva clear 08/22/2015 None Full Exam - Cardiology Eyes conjunctiva/ eyelids Overall: cornea clear 08/22/2015 None Full Exam - Cardiology Eyes conjunctiva/ eyelids Overall: eyelids normal 08/22/2015 None Full Exam - Cardiology Ears/Nose/Throat teeth/gingiva/palate Overall: normal dentition 08/22/2015 None Full Exam - Cardiology Ears/Nose/Throat teeth/gingiva/palate Overall: hard palate benign 08/22/2015 None Full Exam - Cardiology Ears/Nose/Throat teeth/gingiva/palate Overall: soft palate benign 08/22/2015 None Full Exam - Cardiology Ears/Nose/Throat oral mucosa Overall: oral mucosa clear 08/22/2015 None Full Exam - Cardiology Ears/Nose/Throat oral mucosa Overall: no cyanosis 08/22/2015 None Full Exam - Cardiology Respiratory respiratory effort/rhythm Overall: no retractions 08/22/2015 None Full Exam - Cardiology Respiratory respiratory effort/rhythm Overall: normal rate 08/22/2015 None Full Exam - Cardiology Respiratory auscultation Overall: breath sounds clear bilaterally 08/22/2015 None Full Exam - Cardiology Cardiovascular auscultation of heart Overall: regular rate 08/22/2015 None Full Exam - Cardiology Cardiovascular auscultation of heart Overall: normal heart sounds 08/22/2015 None Full Exam - Cardiology Cardiovascular auscultation of heart Overall: no murmurs 08/22/2015 None Full Exam - Cardiology Cardiovascular auscultation of heart Rate: regular rate 08/22/2015 None Full Exam - Cardiology Cardiovascular auscultation of heart Rhythm: regular rhythm 08/22/2015 None Full Exam - Cardiology Cardiovascular auscultation of heart S3 (ventricular gallop): present 08/22/2015 None Full Exam - Cardiology Cardiovascular auscultation of heart S4 (atrial gallop): present 08/22/2015 None Full Exam - Cardiology Cardiovascular extremities Edema present: to knees 08/22/2015 trace bilateral Full Exam - Cardiology Abdomen abdominal exam Overall: no tenderness 08/22/2015 None Full Exam - Cardiology Abdomen abdominal exam Overall: normal bowel sounds 08/22/2015 None Full Exam - Cardiology Abdomen abdominal exam Contour: scaphoid 08/22/2015 None Full Exam - Cardiology Abdomen abdominal exam Left upper quadrant: no mass lesions 08/22/2015 None Full Exam - Cardiology Abdomen abdominal exam Left upper quadrant: soft 08/22/2015 None Full Exam - Cardiology Abdomen abdominal exam Left lower quadrant: no mass lesions 08/22/2015 None Full Exam - Cardiology Abdomen abdominal exam Left lower quadrant: soft 08/22/2015 None Full Exam - Cardiology Abdomen abdominal exam Right upper quadrant: no mass lesions 08/22/2015 None Full Exam - Cardiology Abdomen abdominal exam Right upper quadrant: soft 08/22/2015 None Full Exam - Cardiology Abdomen abdominal exam Right lower quadrant: no mass lesions 08/22/2015 None Full Exam - Cardiology Abdomen abdominal exam Right lower quadrant: soft 08/22/2015 None Full Exam - Cardiology Abdomen abdominal exam Epigastric: no mass lesions 08/22/2015 None Full Exam - Cardiology Abdomen abdominal exam Epigastric: soft 08/22/2015 None Full Exam - Cardiology Abdomen abdominal exam Suprapubic: no mass lesions 08/22/2015 None Full Exam - Cardiology Abdomen abdominal exam Suprapubic: soft 08/22/2015 None Full Exam - Cardiology Abdomen abdominal exam Periumbilical: no mass lesions 08/22/2015 None Full Exam - Cardiology Abdomen abdominal exam Periumbilical: soft 08/22/2015 None Full Exam - Cardiology Musculoskeletal muscle strength and tone Muscle Strength/Tone - right hip: weakness 08/22/2015 None Full Exam - Cardiology Musculoskeletal muscle strength and tone Muscle Strength/Tone - left knee: weakness 08/22/2015 None Full Exam - Cardiology Musculoskeletal gait and station Gait: unable to turn quickly 08/22/2015 None Full Exam - Cardiology Extremities digits and nails Overall: no clubbing 08/22/2015 None Full Exam - Cardiology Extremities digits and nails Overall: digits benign 08/22/2015 None Full Exam - Cardiology Integument inspection/palpation Overall: no rash, lesions 08/22/2015 None Full Exam - Cardiology Neurologic mental status Overall: alert 08/22/2015 None Full Exam - Cardiology Neurologic mental status Overall: oriented 08/22/2015 None Full Exam - Cardiology Neurologic mental status Overall: names 3 objects 08/22/2015 None Full Exam - Cardiology Neurologic mental status Overall: normal serial 7's 08/22/2015 None Full Exam - Cardiology Neurologic mental status Overall: spells words backwards 08/22/2015 None Full Exam - Cardiology Neurologic mental status Overall: normal recall 08/22/2015 None Full Exam - Cardiology Neurologic mental status Level of alertness: alert 08/22/2015 None Full Exam - Cardiology Constitutional general appearance Overall: well nourished 08/22/2015 None Full Exam - Cardiology Constitutional general appearance Overall: well developed 08/22/2015 None Full Exam - Cardiology Constitutional general appearance Overall: in no acute distress 08/22/2015 None Full Exam - Cardiology Constitutional general appearance Development: well developed 08/22/2015 None Full Exam - Cardiology Constitutional general appearance Nourishment: well nourished 08/22/2015 None Full Exam - Cardiology Constitutional general appearance Evidence of Distress: in no acute distress 08/22/2015 None Full Exam - Cardiology Constitutional general appearance Hygiene/Attention to Grooming: good hygiene 08/22/2015 None Full Exam - Cardiology Constitutional general appearance Hygiene/Attention to Grooming: normal grooming 08/22/2015 None Full Exam - Cardiology Eyes conjunctiva/ eyelids Overall: conjunctiva clear 07/21/2015 None Full Exam - Cardiology Eyes conjunctiva/ eyelids Overall: cornea clear 07/21/2015 None Full Exam - Cardiology Eyes conjunctiva/ eyelids Overall: eyelids normal 07/21/2015 None Full Exam - Cardiology Ears/Nose/Throat teeth/gingiva/palate Overall: normal dentition 07/21/2015 None Full Exam - Cardiology Ears/Nose/Throat teeth/gingiva/palate Overall: hard palate benign 07/21/2015 None Full Exam - Cardiology Ears/Nose/Throat teeth/gingiva/palate Overall: soft palate benign 07/21/2015 None Full Exam - Cardiology Ears/Nose/Throat oral mucosa Overall: oral mucosa clear 07/21/2015 None Full Exam - Cardiology Ears/Nose/Throat oral mucosa Overall: no cyanosis 07/21/2015 None Full Exam - Cardiology Respiratory respiratory effort/rhythm Overall: no retractions 07/21/2015 None Full Exam - Cardiology Respiratory respiratory effort/rhythm Overall: normal rate 07/21/2015 None Full Exam - Cardiology Respiratory auscultation Overall: breath sounds clear bilaterally 07/21/2015 None Full Exam - Cardiology Cardiovascular auscultation of heart Overall: regular rate 07/21/2015 None Full Exam - Cardiology Cardiovascular auscultation of heart Overall: normal heart sounds 07/21/2015 None Full Exam - Cardiology Cardiovascular auscultation of heart Overall: no murmurs 07/21/2015 None Full Exam - Cardiology Cardiovascular auscultation of heart Rate: regular rate 07/21/2015 None Full Exam - Cardiology Cardiovascular auscultation of heart Rhythm: regular rhythm 07/21/2015 None Full Exam - Cardiology Cardiovascular auscultation of heart S3 (ventricular gallop): present 07/21/2015 None Full Exam - Cardiology Cardiovascular auscultation of heart S4 (atrial gallop): present 07/21/2015 None Full Exam - Cardiology Abdomen abdominal exam Overall: no tenderness 07/21/2015 None Full Exam - Cardiology Abdomen abdominal exam Overall: normal bowel sounds 07/21/2015 None Full Exam - Cardiology Abdomen abdominal exam Contour: scaphoid 07/21/2015 None Full Exam - Cardiology Abdomen abdominal exam Left upper quadrant: no mass lesions 07/21/2015 None Full Exam - Cardiology Abdomen abdominal exam Left upper quadrant: soft 07/21/2015 None Full Exam - Cardiology Abdomen abdominal exam Left lower quadrant: no mass lesions 07/21/2015 None Full Exam - Cardiology Abdomen abdominal exam Left lower quadrant: soft 07/21/2015 None Full Exam - Cardiology Abdomen abdominal exam Right upper quadrant: no mass lesions 07/21/2015 None Full Exam - Cardiology Abdomen abdominal exam Right upper quadrant: soft 07/21/2015 None Full Exam - Cardiology Abdomen abdominal exam Right lower quadrant: no mass lesions 07/21/2015 None Full Exam - Cardiology Abdomen abdominal exam Right lower quadrant: soft 07/21/2015 None Full Exam - Cardiology Abdomen abdominal exam Epigastric: no mass lesions 07/21/2015 None Full Exam - Cardiology Abdomen abdominal exam Epigastric: soft 07/21/2015 None Full Exam - Cardiology Abdomen abdominal exam Suprapubic: no mass lesions 07/21/2015 None Full Exam - Cardiology Abdomen abdominal exam Suprapubic: soft 07/21/2015 None Full Exam - Cardiology Abdomen abdominal exam Periumbilical: no mass lesions 07/21/2015 None Full Exam - Cardiology Abdomen abdominal exam Periumbilical: soft 07/21/2015 None Full Exam - Cardiology Musculoskeletal muscle strength and tone Muscle Strength/Tone - right hip: weakness 07/21/2015 None Full Exam - Cardiology Musculoskeletal muscle strength and tone Muscle Strength/Tone - left knee: weakness 07/21/2015 None Full Exam - Cardiology Musculoskeletal gait and station Gait: unable to turn quickly 07/21/2015 None Full Exam - Cardiology Extremities digits and nails Overall: no clubbing 07/21/2015 None Full Exam - Cardiology Extremities digits and nails Overall: digits benign 07/21/2015 None Full Exam - Cardiology Neurologic mental status Overall: alert 07/21/2015 None Full Exam - Cardiology Neurologic mental status Overall: oriented 07/21/2015 None Full Exam - Cardiology Neurologic mental status Overall: names 3 objects 07/21/2015 None Full Exam - Cardiology Neurologic mental status Overall: normal serial 7's 07/21/2015 None Full Exam - Cardiology Neurologic mental status Overall: spells words backwards 07/21/2015 None Full Exam - Cardiology Neurologic mental status Overall: normal recall 07/21/2015 None Full Exam - Cardiology Neurologic mental status Level of alertness: alert 07/21/2015 None Full Exam - Cardiology Constitutional general appearance Overall: well nourished 07/21/2015 None Full Exam - Cardiology Constitutional general appearance Overall: well developed 07/21/2015 None Full Exam - Cardiology Constitutional general appearance Overall: in no acute distress 07/21/2015 None Full Exam - Cardiology Constitutional general appearance Development: well developed 07/21/2015 None Full Exam - Cardiology Constitutional general appearance Nourishment: well nourished 07/21/2015 None Full Exam - Cardiology Constitutional general appearance Evidence of Distress: in no acute distress 07/21/2015 None Full Exam - Cardiology Constitutional general appearance Hygiene/Attention to Grooming: good hygiene 07/21/2015 None Full Exam - Cardiology Constitutional general appearance Hygiene/Attention to Grooming: normal grooming 07/21/2015 None Full Exam - Cardiology Cardiovascular extremities Edema present: to knees 07/21/2015 trace bilateral Full Exam - Cardiology Integument inspection/palpation Overall: no rash, lesions 07/21/2015 None Full Exam - Cardiology Eyes conjunctiva/ eyelids Overall: conjunctiva clear 05/20/2015 None Full Exam - Cardiology Eyes conjunctiva/ eyelids Overall: eyelids normal 05/20/2015 None Full Exam - Cardiology Eyes conjunctiva/ eyelids Overall: cornea clear 05/20/2015 None Full Exam - Cardiology Ears/Nose/Throat teeth/gingiva/palate Overall: normal dentition 05/20/2015 None Full Exam - Cardiology Ears/Nose/Throat teeth/gingiva/palate Overall: soft palate benign 05/20/2015 None Full Exam - Cardiology Ears/Nose/Throat teeth/gingiva/palate Overall: hard palate benign 05/20/2015 None Full Exam - Cardiology Ears/Nose/Throat oral mucosa Overall: oral mucosa clear 05/20/2015 None Full Exam - Cardiology Ears/Nose/Throat oral mucosa Overall: no cyanosis 05/20/2015 None Full Exam - Cardiology Respiratory respiratory effort/rhythm Overall: no retractions 05/20/2015 None Full Exam - Cardiology Respiratory respiratory effort/rhythm Overall: normal rate 05/20/2015 None Full Exam - Cardiology Respiratory auscultation Overall: breath sounds clear bilaterally 05/20/2015 None Full Exam - Cardiology Cardiovascular auscultation of heart Rhythm: regular rhythm 05/20/2015 None Full Exam - Cardiology Cardiovascular auscultation of heart Rate: regular rate 05/20/2015 None Full Exam - Cardiology Cardiovascular auscultation of heart Overall: regular rate 05/20/2015 None Full Exam - Cardiology Cardiovascular auscultation of heart Overall: normal heart sounds 05/20/2015 None Full Exam - Cardiology Cardiovascular auscultation of heart Overall: no murmurs 05/20/2015 None Full Exam - Cardiology Cardiovascular auscultation of heart S3 (ventricular gallop): present 05/20/2015 None Full Exam - Cardiology Cardiovascular auscultation of heart S4 (atrial gallop): present 05/20/2015 None Full Exam - Cardiology Cardiovascular extremities Edema present: unilateral 05/20/2015 LEFT ANKLE 2+ PITTING Full Exam - Cardiology Abdomen abdominal exam Epigastric: soft 05/20/2015 None Full Exam - Cardiology Abdomen abdominal exam Epigastric: no mass lesions 05/20/2015 None Full Exam - Cardiology Abdomen abdominal exam Overall: no tenderness 05/20/2015 None Full Exam - Cardiology Abdomen abdominal exam Overall: normal bowel sounds 05/20/2015 None Full Exam - Cardiology Abdomen abdominal exam Suprapubic: soft 05/20/2015 None Full Exam - Cardiology Abdomen abdominal exam Suprapubic: no mass lesions 05/20/2015 None Full Exam - Cardiology Abdomen abdominal exam Periumbilical: soft 05/20/2015 None Full Exam - Cardiology Abdomen abdominal exam Periumbilical: no mass lesions 05/20/2015 None Full Exam - Cardiology Abdomen abdominal exam Left upper quadrant: soft 05/20/2015 None Full Exam - Cardiology Abdomen abdominal exam Left upper quadrant: no mass lesions 05/20/2015 None Full Exam - Cardiology Abdomen abdominal exam Right upper quadrant: no mass lesions 05/20/2015 None Full Exam - Cardiology Abdomen abdominal exam Right upper quadrant: soft 05/20/2015 None Full Exam - Cardiology Abdomen abdominal exam Left lower quadrant: no mass lesions 05/20/2015 None Full Exam - Cardiology Abdomen abdominal exam Left lower quadrant: soft 05/20/2015 None Full Exam - Cardiology Abdomen abdominal exam Right lower quadrant: soft 05/20/2015 None Full Exam - Cardiology Abdomen abdominal exam Right lower quadrant: no mass lesions 05/20/2015 None Full Exam - Cardiology Abdomen abdominal exam Contour: scaphoid 05/20/2015 None Full Exam - Cardiology Musculoskeletal muscle strength and tone Muscle Strength/Tone - right hip: weakness 05/20/2015 None Full Exam - Cardiology Musculoskeletal muscle strength and tone Muscle Strength/Tone - left knee: weakness 05/20/2015 STABILIZING BRACE ON Full Exam - Cardiology Musculoskeletal gait and station Gait: unable to turn quickly 05/20/2015 None Full Exam - Cardiology Extremities digits and nails Overall: no clubbing 05/20/2015 None Full Exam - Cardiology Extremities digits and nails Overall: digits benign 05/20/2015 None Full Exam - Cardiology Integument inspection/palpation Left leg: tender 05/20/2015 LEFT KNEE INCISION WITH ARNAUD INTACT AND WELL APPROXIMATED, SMALL SEROUS DRAINAGE Full Exam - Cardiology Integument inspection/palpation Left leg: edema 05/20/2015 None Full Exam - Cardiology Neurologic mental status Overall: names 3 objects 05/20/2015 None Full Exam - Cardiology Neurologic mental status Overall: normal serial 7's 05/20/2015 None Full Exam - Cardiology Neurologic mental status Overall: spells words backwards 05/20/2015 None Full Exam - Cardiology Neurologic mental status Overall: normal recall 05/20/2015 None Full Exam - Cardiology Neurologic mental status Overall: alert 05/20/2015 None Full Exam - Cardiology Neurologic mental status Overall: oriented 05/20/2015 None Full Exam - Cardiology Neurologic mental status Level of alertness: alert 05/20/2015 None Full Exam - Cardiology Constitutional general appearance Development: well developed 05/20/2015 None Full Exam - Cardiology Constitutional general appearance Overall: well developed 05/20/2015 None Full Exam - Cardiology Constitutional general appearance Overall: well nourished 05/20/2015 None Full Exam - Cardiology Constitutional general appearance Overall: in no acute distress 05/20/2015 None Full Exam - Cardiology Constitutional general appearance Evidence of Distress: in no acute distress 05/20/2015 None Full Exam - Cardiology Constitutional general appearance Nourishment: well nourished 05/20/2015 None Full Exam - Cardiology Constitutional general appearance Hygiene/Attention to Grooming: normal grooming 05/20/2015 None Full Exam - Cardiology Constitutional general appearance Hygiene/Attention to Grooming: good hygiene 05/20/2015 None Full Exam - General 1994 Constitutional general appearance Overall: well developed 01/24/2015 None Full Exam - General 1994 Constitutional general appearance Overall: in no acute distress 01/24/2015 None Full Exam - General 1994 Constitutional general appearance Overall: well nourished 01/24/2015 None Full Exam - General 1994 Eyes pupils and irises Overall: pupils equal, round, reactive to light and accomodation 01/24/2015 None Full Exam - General 1994 Ears/Nose/Throat otoscopic exam Overall: external auditory canals clear 01/24/2015 None Full Exam - General 1994 Ears/Nose/Throat otoscopic exam Overall: tympanic membranes clear 01/24/2015 None Full Exam - General 1994 Ears/Nose/Throat oral cavity/pharynx/larynx Overall: oral mucosa clear 01/24/2015 None Full Exam - General 1994 Ears/Nose/Throat oral cavity/pharynx/larynx Overall: oropharyngeal mucosa clear 01/24/2015 None Full Exam - General 1994 Ears/Nose/Throat oral cavity/pharynx/larynx Overall: no masses 01/24/2015 None Full Exam - General 1994 Cardiovascular extremities Edema present: pitting 01/24/2015 None Full Exam - General 1994 Lymphatic neck nodes Overall: anterior cervical chain benign 01/24/2015 None Full Exam - General 1994 Lymphatic neck nodes Overall: posterior cervical chain benign 01/24/2015 None Full Exam - General 1994 Psychiatric orientation/consciousness Overall: oriented to person, place and time 01/24/2015 None Full Exam - General 1994 Cardiovascular auscultation of heart Rate: regular rate 01/24/2015 None Full Exam - General 1994 Cardiovascular auscultation of heart Overall: regular rate 01/24/2015 None Full Exam - General 1994 Cardiovascular auscultation of heart Overall: normal heart sounds 01/24/2015 None Full Exam - General 1994 Cardiovascular extremities Edema present: severity 1+ - 4 +: TRACE 01/24/2015 None Full Exam - General 1994 Respiratory auscultation Overall: breath sounds clear bilaterally 01/24/2015 None Full Exam - General 1994 Respiratory respiratory effort/rhythm Overall: no retractions 01/24/2015 None Full Exam - General 1994 Respiratory respiratory effort/rhythm Overall: normal rate 01/24/2015 None Full Exam - General 1994 Constitutional general appearance Assistive Device: walker 01/24/2015 None Full Exam - General 1994 Constitutional general appearance Overall: well developed 12/23/2014 None Full Exam - General 1994 Constitutional general appearance Overall: in no acute distress 12/23/2014 None Full Exam - General 1994 Constitutional general appearance Overall: well nourished 12/23/2014 None Full Exam - General 1994 Eyes pupils and irises Overall: pupils equal, round, reactive to light and accomodation 12/23/2014 None Full Exam - General 1994 Ears/Nose/Throat otoscopic exam Overall: external auditory canals clear 12/23/2014 None Full Exam - General 1994 Ears/Nose/Throat otoscopic exam Overall: tympanic membranes clear 12/23/2014 None Full Exam - General 1994 Ears/Nose/Throat oral cavity/pharynx/larynx Overall: oral mucosa clear 12/23/2014 None Full Exam - General 1994 Ears/Nose/Throat oral cavity/pharynx/larynx Overall: oropharyngeal mucosa clear 12/23/2014 None Full Exam - General 1994 Ears/Nose/Throat oral cavity/pharynx/larynx Overall: no masses 12/23/2014 None Full Exam - General 1994 Respiratory auscultation Lower lung field: crackles 12/23/2014 None Full Exam - General 1994 Cardiovascular extremities Edema present: pitting 12/23/2014 None Full Exam - General 1994 Cardiovascular extremities Edema present: severity 1+ - 4 +: _ 12/23/2014 None Full Exam - General 1994 Cardiovascular auscultation of heart Rate: tachycardia 12/23/2014 None Full Exam - General 1994 Cardiovascular auscultation of heart Rhythm: regular rhythm 12/23/2014 None Full Exam - General 1994 Lymphatic neck nodes Overall: anterior cervical chain benign 12/23/2014 None Full Exam - General 1994 Lymphatic neck nodes Overall: posterior cervical chain benign 12/23/2014 None Full Exam - General 1994 Psychiatric orientation/consciousness Overall: oriented to person, place and time 12/23/2014 None Full Exam - General 1994 Constitutional general appearance Assistive Device: wheelchair 12/23/2014 None Full Exam - General 1994 Constitutional general appearance Overall: well developed 10/08/2014 None Full Exam - General 1994 Constitutional general appearance Overall: in no acute distress 10/08/2014 None Full Exam - General 1994 Constitutional general appearance Overall: well nourished 10/08/2014 None Full Exam - General 1994 Eyes pupils and irises Overall: pupils equal, round, reactive to light and accomodation 10/08/2014 None Full Exam - General 1994 Ears/Nose/Throat otoscopic exam Overall: external auditory canals clear 10/08/2014 None Full Exam - General 1994 Ears/Nose/Throat otoscopic exam Overall: tympanic membranes clear 10/08/2014 None Full Exam - General 1994 Ears/Nose/Throat oral cavity/pharynx/larynx Overall: oral mucosa clear 10/08/2014 None Full Exam - General 1994 Ears/Nose/Throat oral cavity/pharynx/larynx Overall: oropharyngeal mucosa clear 10/08/2014 None Full Exam - General 1994 Ears/Nose/Throat oral cavity/pharynx/larynx Overall: no masses 10/08/2014 None Full Exam - General 1994 Respiratory auscultation Lower lung field: crackles 10/08/2014 None Full Exam - General 1994 Cardiovascular extremities Edema present: pitting 10/08/2014 None Full Exam - General 1994 Cardiovascular extremities Edema present: severity 1+ - 4 +: _ 10/08/2014 None Full Exam - General 1994 Cardiovascular auscultation of heart Rate: tachycardia 10/08/2014 None Full Exam - General 1994 Cardiovascular auscultation of heart Rhythm: regular rhythm 10/08/2014 None Full Exam - General 1994 Lymphatic neck nodes Overall: anterior cervical chain benign 10/08/2014 None Full Exam - General 1994 Lymphatic neck nodes Overall: posterior cervical chain benign 10/08/2014 None Full Exam - General 1994 Musculoskeletal lower extremity Inspection - knee: a normal exam 10/08/2014 None Full Exam - General 1994 Musculoskeletal lower extremity Palpation - knee: crepitus 10/08/2014 None Full Exam - General 1994 Musculoskeletal gait and station Gait: asymmetric 10/08/2014 None Full Exam - General 1994 Integument inspection of skin Location: left leg 10/08/2014 varicosities of lower leg, with posterior calf and medial calf having worst varicosities, Full Exam - General 1994 Integument inspection of skin Location: right leg 10/08/2014 varicosities of lower leg, with posterior calf and medial calf having worst varicosities, Full Exam - General 1994 Neurologic gait Overall: no ataxia, no unsteadiness 10/08/2014 None Full Exam - General 1994 Psychiatric orientation/consciousness Overall: oriented to person, place and time 10/08/2014 None Full Exam - General 1994 Constitutional general appearance Overall: well developed 09/24/2014 None Full Exam - General 1994 Constitutional general appearance Overall: in no acute distress 09/24/2014 None Full Exam - General 1994 Constitutional general appearance Overall: well nourished 09/24/2014 None Full Exam - General 1994 Eyes pupils and irises Overall: pupils equal, round, reactive to light and accomodation 09/24/2014 None Full Exam - General 1994 Ears/Nose/Throat otoscopic exam Overall: external auditory canals clear 09/24/2014 None Full Exam - General 1994 Ears/Nose/Throat otoscopic exam Overall: tympanic membranes clear 09/24/2014 None Full Exam - General 1994 Ears/Nose/Throat oral cavity/pharynx/larynx Overall: oral mucosa clear 09/24/2014 None Full Exam - General 1994 Ears/Nose/Throat oral cavity/pharynx/larynx Overall: oropharyngeal mucosa clear 09/24/2014 None Full Exam - General 1994 Ears/Nose/Throat oral cavity/pharynx/larynx Overall: no masses 09/24/2014 None Full Exam - General 1994 Respiratory auscultation Lower lung field: crackles 09/24/2014 None Full Exam - General 1994 Cardiovascular extremities Edema present: pitting 09/24/2014 None Full Exam - General 1994 Cardiovascular extremities Edema present: severity 1+ - 4 +: _ 09/24/2014 None Full Exam - General 1994 Cardiovascular auscultation of heart Rate: tachycardia 09/24/2014 None Full Exam - General 1994 Cardiovascular auscultation of heart Rhythm: regular rhythm 09/24/2014 None Full Exam - General 1994 Lymphatic neck nodes Overall: anterior cervical chain benign 09/24/2014 None Full Exam - General 1994 Lymphatic neck nodes Overall: posterior cervical chain benign 09/24/2014 None Full Exam - General 1994 Musculoskeletal gait and station Gait: asymmetric 09/24/2014 None Full Exam - General 1994 Neurologic gait Overall: no ataxia, no unsteadiness 09/24/2014 None Full Exam - General 1994 Psychiatric orientation/consciousness Overall: oriented to person, place and time 09/24/2014 None Full Exam - General 1994 Integument inspection of skin Location: right leg 09/24/2014 varicosities of lower leg, with posterior calf and medial calf having worst varicosities, Full Exam - General 1994 Integument inspection of skin Location: left leg 09/24/2014 varicosities of lower leg, with posterior calf and medial calf having worst varicosities, Full Exam - General 1994 Musculoskeletal lower extremity Inspection - knee: a normal exam 09/24/2014 None Full Exam - General 1994 Musculoskeletal lower extremity Palpation - knee: crepitus 09/24/2014 None Full Exam - General 1994 Constitutional general appearance Overall: well developed 07/22/2014 None Full Exam - General 1994 Constitutional general appearance Overall: in no acute distress 07/22/2014 None Full Exam - General 1994 Eyes conjunctiva /eyelids Overall: conjunctiva clear 07/22/2014 None Full Exam - General 1994 Eyes conjunctiva /eyelids Overall: cornea clear 07/22/2014 None Full Exam - General 1994 Eyes conjunctiva /eyelids Overall: eyelids normal 07/22/2014 None Full Exam - General 1994 Eyes pupils and irises Overall: pupils equal, round, reactive to light and accomodation 07/22/2014 None Full Exam - General 1994 Ears/Nose/Throat otoscopic exam Overall: external auditory canals clear 07/22/2014 None Full Exam - General 1994 Ears/Nose/Throat otoscopic exam Overall: tympanic membranes clear 07/22/2014 None Full Exam - General 1994 Ears/Nose/Throat lips/teeth/gingiva Overall: benign lips 07/22/2014 None Full Exam - General 1994 Ears/Nose/Throat lips/teeth/gingiva Overall: normal dentition 07/22/2014 None Full Exam - General 1995 Ears/Nose/Throat lips/teeth/gingiva Overall: benign gingiva 07/22/2014 None Full Exam - General 1995 Ears/Nose/Throat lips/teeth/gingiva Overall: no masses 07/22/2014 None Full Exam - General 1994 Ears/Nose/Throat oral cavity/pharynx/larynx Overall: oral mucosa clear 07/22/2014 None Full Exam - General 1995 Ears/Nose/Throat oral cavity/pharynx/larynx Overall: oropharyngeal mucosa clear 07/22/2014 None Full Exam - General 1994 Ears/Nose/Throat oral cavity/pharynx/larynx Overall: no masses 07/22/2014 None Full Exam - General 1994 Respiratory auscultation Overall: breath sounds clear bilaterally 07/22/2014 None Full Exam - General 1994 Respiratory respiratory effort/rhythm Overall: no retractions 07/22/2014 None Full Exam - General 1994 Respiratory respiratory effort/rhythm Overall: normal rate 07/22/2014 None Full Exam - General 1994 Cardiovascular auscultation of heart Overall: regular rate 07/22/2014 None Full Exam - General 1994 Cardiovascular auscultation of heart Overall: normal heart sounds 07/22/2014 None Full Exam - General 1994 Cardiovascular auscultation of heart Overall: no murmurs 07/22/2014 None Full Exam - General 1994 Abdomen abdominal exam Overall: no tenderness 07/22/2014 None Full Exam - General 1994 Abdomen abdominal exam Overall: normal bowel sounds 07/22/2014 None Full Exam - General 1994 Lymphatic neck nodes Overall: anterior cervical chain benign 07/22/2014 None Full Exam - General 1994 Lymphatic neck nodes Overall: posterior cervical chain benign 07/22/2014 None Full Exam - General 1994 Musculoskeletal digits and nails Overall: no clubbing 07/22/2014 None Full Exam - General 1994 Musculoskeletal digits and nails Overall: digits benign 07/22/2014 None Full Exam - General 1994 Psychiatric orientation/consciousness Overall: oriented to person, place and time 07/22/2014 None Full Exam - General 1994 Constitutional general appearance Overall: well developed 01/11/2014 None Full Exam - General 1994 Constitutional general appearance Overall: in no acute distress 01/11/2014 None Full Exam - General 1994 Constitutional general appearance Overall: well nourished 01/11/2014 None Full Exam - General 1994 Eyes conjunctiva /eyelids Overall: conjunctiva clear 01/11/2014 None Full Exam - General 1994 Eyes conjunctiva /eyelids Overall: cornea clear 01/11/2014 None Full Exam - General 1994 Eyes conjunctiva /eyelids Overall: eyelids normal 01/11/2014 None Full Exam - General 1994 Eyes pupils and irises Overall: pupils equal, round, reactive to light and accomodation 01/11/2014 None Full Exam - General 1994 Ears/Nose/Throat oral cavity/pharynx/larynx Overall: oral mucosa clear 01/11/2014 None Full Exam - General 1994 Ears/Nose/Throat oral cavity/pharynx/larynx Overall: oropharyngeal mucosa clear 01/11/2014 None Full Exam - General 1994 Ears/Nose/Throat oral cavity/pharynx/larynx Overall: no masses 01/11/2014 None Full Exam - General 1994 Respiratory auscultation Overall: breath sounds clear bilaterally 01/11/2014 None Full Exam - General 1994 Respiratory respiratory effort/rhythm Overall: no retractions 01/11/2014 None Full Exam - General 1994 Respiratory respiratory effort/rhythm Overall: normal rate 01/11/2014 None Full Exam - General 1994 Cardiovascular extremities Overall: no clubbing 01/11/2014 None Full Exam - General 1994 Cardiovascular auscultation of heart Overall: regular rate 01/11/2014 None Full Exam - General 1994 Cardiovascular auscultation of heart Overall: normal heart sounds 01/11/2014 None Full Exam - General 1994 Cardiovascular auscultation of heart Overall: no murmurs 01/11/2014 None Full Exam - General 1994 Abdomen abdominal exam Bowel sounds: a normal exam 01/11/2014 None Full Exam - General 1994 Abdomen abdominal exam Upper quadrant: non-tender to palpation 01/11/2014 None Full Exam - General 1994 Abdomen abdominal exam Upper quadrant: tender to palpation 01/11/2014 None Full Exam - General 1994 Abdomen abdominal exam Upper quadrant: involuntary guarding 01/11/2014 None Full Exam - General 1994 Abdomen abdominal exam Lower quadrant: non-tender to palpation 01/11/2014 None Full Exam - General 1994 Abdomen abdominal exam Lower quadrant: tender to palpation 01/11/2014 None Full Exam - General 1994 Abdomen abdominal exam Lower quadrant: involuntary guarding 01/11/2014 None Full Exam - General 1994 Neurologic deep tendon reflexes Overall: deep tendon reflexes intact 01/11/2014 None Full Exam - General 1994 Neurologic cranial nerves Overall: crainial nerves 2 - 12 grossly intact 01/11/2014 None Full Exam - General 1994 Psychiatric orientation/consciousness Overall: oriented to person, place and time 01/11/2014 None Full Exam - General 1994 Lymphatic neck nodes Overall: posterior cervical chain benign 01/11/2014 None Full Exam - General 1994 Lymphatic neck nodes Overall: anterior cervical chain benign 01/11/2014 None Full Exam - General 1994 Constitutional general appearance Overall: well developed 01/07/2014 None Full Exam - General 1994 Constitutional general appearance Overall: in no acute distress 01/07/2014 None Full Exam - General 1994 Constitutional general appearance Overall: well nourished 01/07/2014 None Full Exam - General 1994 Eyes conjunctiva /eyelids Overall: conjunctiva clear 01/07/2014 None Full Exam - General 1994 Eyes conjunctiva /eyelids Overall: cornea clear 01/07/2014 None Full Exam - General 1994 Eyes conjunctiva /eyelids Overall: eyelids normal 01/07/2014 None Full Exam - General 1994 Eyes pupils and irises Overall: pupils equal, round, reactive to light and accomodation 01/07/2014 None Full Exam - General 1994 Ears/Nose/Throat oral cavity/pharynx/larynx Overall: oral mucosa clear 01/07/2014 None Full Exam - General 1994 Ears/Nose/Throat oral cavity/pharynx/larynx Overall: oropharyngeal mucosa clear 01/07/2014 None Full Exam - General 1994 Ears/Nose/Throat oral cavity/pharynx/larynx Overall: no masses 01/07/2014 None Full Exam - General 1994 Respiratory auscultation Overall: breath sounds clear bilaterally 01/07/2014 None Full Exam - General 1994 Respiratory respiratory effort/rhythm Overall: no retractions 01/07/2014 None Full Exam - General 1994 Respiratory respiratory effort/rhythm Overall: normal rate 01/07/2014 None Full Exam - General 1994 Cardiovascular extremities Overall: no clubbing 01/07/2014 None Full Exam - General 1994 Cardiovascular auscultation of heart Overall: regular rate 01/07/2014 None Full Exam - General 1994 Cardiovascular auscultation of heart Overall: normal heart sounds 01/07/2014 None Full Exam - General 1994 Cardiovascular auscultation of heart Overall: no murmurs 01/07/2014 None Full Exam - General 1994 Neurologic deep tendon reflexes Overall: deep tendon reflexes intact 01/07/2014 None Full Exam - General 1994 Neurologic cranial nerves Overall: crainial nerves 2 - 12 grossly intact 01/07/2014 None Full Exam - General 1994 Psychiatric orientation/consciousness Overall: oriented to person, place and time 01/07/2014 None Full Exam - General 1994 Abdomen abdominal exam Bowel sounds: a normal exam 01/07/2014 None Full Exam - General 1994 Abdomen abdominal exam Upper quadrant: non-tender to palpation 01/07/2014 None Full Exam - General 1994 Abdomen abdominal exam Upper quadrant: tender to palpation 01/07/2014 None Full Exam - General 1994 Abdomen abdominal exam Upper quadrant: involuntary guarding 01/07/2014 None Full Exam - General 1994 Abdomen abdominal exam Lower quadrant: non-tender to palpation 01/07/2014 None Full Exam - General 1994 Abdomen abdominal exam Lower quadrant: tender to palpation 01/07/2014 None Full Exam - General 1994 Abdomen abdominal exam Lower quadrant: involuntary guarding 01/07/2014 None Full Exam - General 1994 Constitutional general appearance Overall: well developed 10/30/2013 None Full Exam - General 1994 Constitutional general appearance Overall: in no acute distress 10/30/2013 None Full Exam - General 1994 Eyes conjunctiva /eyelids Overall: conjunctiva clear 10/30/2013 None Full Exam - General 1994 Eyes conjunctiva /eyelids Overall: cornea clear 10/30/2013 None Full Exam - General 1994 Eyes conjunctiva /eyelids Overall: eyelids normal 10/30/2013 None Full Exam - General 1994 Eyes pupils and irises Overall: pupils equal, round, reactive to light and accomodation 10/30/2013 None Full Exam - General 1994 Ears/Nose/Throat otoscopic exam Overall: external auditory canals clear 10/30/2013 None Full Exam - General 1994 Ears/Nose/Throat otoscopic exam Overall: tympanic membranes clear 10/30/2013 None Full Exam - General 1994 Ears/Nose/Throat lips/teeth/gingiva Overall: benign lips 10/30/2013 None Full Exam - General 1994 Ears/Nose/Throat lips/teeth/gingiva Overall: normal dentition 10/30/2013 None Full Exam - General 1994 Ears/Nose/Throat lips/teeth/gingiva Overall: benign gingiva 10/30/2013 None Full Exam - General 1994 Ears/Nose/Throat lips/teeth/gingiva Overall: no masses 10/30/2013 None Full Exam - General 1995 Ears/Nose/Throat oral cavity/pharynx/larynx Overall: oral mucosa clear 10/30/2013 None Full Exam - General 1995 Ears/Nose/Throat oral cavity/pharynx/larynx Overall: oropharyngeal mucosa clear 10/30/2013 None Full Exam - General 1995 Ears/Nose/Throat oral cavity/pharynx/larynx Overall: no masses 10/30/2013 None Full Exam - General 1994 Respiratory auscultation Overall: breath sounds clear bilaterally 10/30/2013 None Full Exam - General 1994 Respiratory respiratory effort/rhythm Overall: no retractions 10/30/2013 None Full Exam - General 1994 Respiratory respiratory effort/rhythm Overall: normal rate 10/30/2013 None Full Exam - General 1994 Cardiovascular auscultation of heart Overall: regular rate 10/30/2013 None Full Exam - General 1994 Cardiovascular auscultation of heart Overall: normal heart sounds 10/30/2013 None Full Exam - General 1994 Cardiovascular auscultation of heart Overall: no murmurs 10/30/2013 None Full Exam - General 1994 Abdomen abdominal exam Overall: normal bowel sounds 10/30/2013 None Full Exam - General 1994 Lymphatic neck nodes Overall: anterior cervical chain benign 10/30/2013 None Full Exam - General 1994 Lymphatic neck nodes Overall: posterior cervical chain benign 10/30/2013 None Full Exam - General 1994 Musculoskeletal digits and nails Overall: no clubbing 10/30/2013 None Full Exam - General 1994 Musculoskeletal digits and nails Overall: digits benign 10/30/2013 None Full Exam - General 1994 Integument inspection of skin Location: abdomen 10/30/2013 erythematous patch under abdominal fold Full Exam - General 1994 Psychiatric orientation/consciousness Overall: oriented to person, place and time 10/30/2013 None Full Exam - General 1994 Abdomen abdominal exam Contour: rounded 10/30/2013 None Full Exam - General 1994 Abdomen abdominal exam Upper quadrant: tender to palpation 10/30/2013 None Full Exam - General 1994 Abdomen abdominal exam Lower quadrant: tender to palpation 10/30/2013 None Full Exam - General 1994 Constitutional general appearance Overall: well developed 09/25/2013 None Full Exam - General 1994 Constitutional general appearance Overall: in no acute distress 09/25/2013 None Full Exam - General 1994 Eyes conjunctiva /eyelids Overall: conjunctiva clear 09/25/2013 None Full Exam - General 1994 Eyes conjunctiva /eyelids Overall: cornea clear 09/25/2013 None Full Exam - General 1994 Eyes conjunctiva /eyelids Overall: eyelids normal 09/25/2013 None Full Exam - General 1994 Eyes pupils and irises Overall: pupils equal, round, reactive to light and accomodation 09/25/2013 None Full Exam - General 1994 Ears/Nose/Throat otoscopic exam Overall: external auditory canals clear 09/25/2013 None Full Exam - General 1994 Ears/Nose/Throat otoscopic exam Overall: tympanic membranes clear 09/25/2013 None Full Exam - General 1994 Ears/Nose/Throat lips/teeth/gingiva Overall: benign lips 09/25/2013 None Full Exam - General 1994 Ears/Nose/Throat lips/teeth/gingiva Overall: normal dentition 09/25/2013 None Full Exam - General 1994 Ears/Nose/Throat lips/teeth/gingiva Overall: benign gingiva 09/25/2013 None Full Exam - General 1994 Ears/Nose/Throat lips/teeth/gingiva Overall: no masses 09/25/2013 None Full Exam - General 1994 Ears/Nose/Throat oral cavity/pharynx/larynx Overall: oral mucosa clear 09/25/2013 None Full Exam - General 1994 Ears/Nose/Throat oral cavity/pharynx/larynx Overall: oropharyngeal mucosa clear 09/25/2013 None Full Exam - General 1995 Ears/Nose/Throat oral cavity/pharynx/larynx Overall: no masses 09/25/2013 None Full Exam - General 1994 Respiratory auscultation Overall: breath sounds clear bilaterally 09/25/2013 None Full Exam - General 1994 Respiratory respiratory effort/rhythm Overall: no retractions 09/25/2013 None Full Exam - General 1994 Respiratory respiratory effort/rhythm Overall: normal rate 09/25/2013 None Full Exam - General 1994 Cardiovascular auscultation of heart Overall: regular rate 09/25/2013 None Full Exam - General 1994 Cardiovascular auscultation of heart Overall: normal heart sounds 09/25/2013 None Full Exam - General 1994 Cardiovascular auscultation of heart Overall: no murmurs 09/25/2013 None Full Exam - General 1994 Abdomen abdominal exam Overall: no tenderness 09/25/2013 None Full Exam - General 1994 Abdomen abdominal exam Overall: normal bowel sounds 09/25/2013 None Full Exam - General 1994 Lymphatic neck nodes Overall: anterior cervical chain benign 09/25/2013 None Full Exam - General 1994 Lymphatic neck nodes Overall: posterior cervical chain benign 09/25/2013 None Full Exam - General 1994 Musculoskeletal digits and nails Overall: no clubbing 09/25/2013 None Full Exam - General 1994 Musculoskeletal digits and nails Overall: digits benign 09/25/2013 None Full Exam - General 1994 Psychiatric orientation/consciousness Overall: oriented to person, place and time 09/25/2013 None Full Exam - General 1994 Integument inspection of skin Location: abdomen 09/25/2013 erythematous patch under abdominal fold Full Exam - General 1994 Constitutional general appearance Overall: well developed 08/20/2013 None Full Exam - General 1994 Constitutional general appearance Overall: in no acute distress 08/20/2013 None Full Exam - General 1994 Eyes pupils and irises Overall: pupils equal, round, reactive to light and accomodation 08/20/2013 None Full Exam - General 1994 Eyes conjunctiva /eyelids Overall: conjunctiva clear 08/20/2013 None Full Exam - General 1994 Eyes conjunctiva /eyelids Overall: eyelids normal 08/20/2013 None Full Exam - General 1994 Eyes conjunctiva /eyelids Overall: cornea clear 08/20/2013 None Full Exam - General 1995 Ears/Nose/Throat oral cavity/pharynx/larynx Overall: oropharyngeal mucosa clear 08/20/2013 None Full Exam - General 1995 Ears/Nose/Throat oral cavity/pharynx/larynx Overall: no masses 08/20/2013 None Full Exam - General 1995 Ears/Nose/Throat oral cavity/pharynx/larynx Overall: oral mucosa clear 08/20/2013 None Full Exam - General 1995 Ears/Nose/Throat lips/teeth/gingiva Overall: benign gingiva 08/20/2013 None Full Exam - General 1995 Ears/Nose/Throat lips/teeth/gingiva Overall: no masses 08/20/2013 None Full Exam - General 1995 Ears/Nose/Throat lips/teeth/gingiva Overall: normal dentition 08/20/2013 None Full Exam - General 1995 Ears/Nose/Throat lips/teeth/gingiva Overall: benign lips 08/20/2013 None Full Exam - General 1995 Ears/Nose/Throat otoscopic exam Overall: tympanic membranes clear 08/20/2013 None Full Exam - General 1995 Ears/Nose/Throat otoscopic exam Overall: external auditory canals clear 08/20/2013 None Full Exam - General 1994 Respiratory respiratory effort/rhythm Overall: normal rate 08/20/2013 None Full Exam - General 1994 Respiratory respiratory effort/rhythm Overall: no retractions 08/20/2013 None Full Exam - General 1995 Respiratory auscultation Overall: breath sounds clear bilaterally 08/20/2013 None Full Exam - General 1995 Cardiovascular auscultation of heart Overall: regular rate 08/20/2013 None Full Exam - General 1995 Cardiovascular auscultation of heart Overall: normal heart sounds 08/20/2013 None Full Exam - General 1994 Cardiovascular auscultation of heart Overall: no murmurs 08/20/2013 None Full Exam - General 1994 Abdomen abdominal exam Overall: no tenderness 08/20/2013 None Full Exam - General 1995 Abdomen abdominal exam Overall: normal bowel sounds 08/20/2013 None Full Exam - General 1995 Psychiatric orientation/consciousness Overall: oriented to person, place and time 08/20/2013 None Full Exam - General 1995 Lymphatic neck nodes Overall: anterior cervical chain benign 08/20/2013 None Full Exam - General 1994 Lymphatic neck nodes Overall: posterior cervical chain benign 08/20/2013 None Full Exam - General 1994 Musculoskeletal digits and nails Overall: no clubbing 08/20/2013 None Full Exam - General 1994 Musculoskeletal digits and nails Overall: digits benign 08/20/2013 None Full Exam - General 1994 Constitutional general appearance Overall: well developed 07/06/2013 None Full Exam - General 1994 Constitutional general appearance Overall: in no acute distress 07/06/2013 None Full Exam - General 1994 Constitutional general appearance Overall: well nourished 07/06/2013 None Full Exam - General 1994 Psychiatric orientation/consciousness Overall: oriented to person, place and time 07/06/2013 None Full Exam - General 1994 Musculoskeletal head and neck Cervical Spine: a normal exam 07/06/2013 tender right neck and upper back muscles Full Exam - General 1994 Psychiatric orientation/consciousness Overall: oriented to person, place and time 04/30/2013 None Full Exam - General 1994 Neurologic deep tendon reflexes Overall: deep tendon reflexes intact 04/30/2013 None Full Exam - General 1994 Neurologic cranial nerves Overall: crainial nerves 2 - 12 grossly intact 04/30/2013 None Full Exam - General 1994 Integument inspection of skin Overall: no rash, lesions 04/30/2013 None Full Exam - General 1994 Musculoskeletal digits and nails Overall: digits benign 04/30/2013 None Full Exam - General 1994 Musculoskeletal digits and nails Overall: no clubbing 04/30/2013 None Full Exam - General 1995 Musculoskeletal gait and station Overall: normal station 04/30/2013 None Full Exam - General 1994 Musculoskeletal gait and station Overall: normal gait 04/30/2013 None Full Exam - General 1994 Abdomen abdominal exam Overall: no tenderness 04/30/2013 None Full Exam - General 1995 Abdomen abdominal exam Overall: normal bowel sounds 04/30/2013 None Full Exam - General 1994 Cardiovascular auscultation of heart Overall: regular rate 04/30/2013 None Full Exam - General 1994 Cardiovascular auscultation of heart Overall: normal heart sounds 04/30/2013 None Full Exam - General 1994 Cardiovascular auscultation of heart Overall: no murmurs 04/30/2013 None Full Exam - General 1994 Cardiovascular extremities Overall: no clubbing 04/30/2013 None Full Exam - General 1994 Respiratory auscultation Overall: breath sounds clear bilaterally 04/30/2013 None Full Exam - General 1994 Respiratory respiratory effort/rhythm Overall: normal rate 04/30/2013 None Full Exam - General 1994 Respiratory respiratory effort/rhythm Overall: no retractions 04/30/2013 None Full Exam - General 1995 Ears/Nose/Throat oral cavity/pharynx/larynx Overall: oropharyngeal mucosa clear 04/30/2013 None Full Exam - General 1995 Ears/Nose/Throat oral cavity/pharynx/larynx Overall: no masses 04/30/2013 None Full Exam - General 1995 Ears/Nose/Throat oral cavity/pharynx/larynx Overall: oral mucosa clear 04/30/2013 None Full Exam - General 1995 Ears/Nose/Throat otoscopic exam Overall: tympanic membranes clear 04/30/2013 None Full Exam - General 1995 Ears/Nose/Throat otoscopic exam Overall: external auditory canals clear 04/30/2013 None Full Exam - General 1994 Eyes conjunctiva /eyelids Overall: conjunctiva clear 04/30/2013 None Full Exam - General 1994 Eyes conjunctiva /eyelids Overall: eyelids normal 04/30/2013 None Full Exam - General 1994 Eyes conjunctiva /eyelids Overall: cornea clear 04/30/2013 None Full Exam - General 1994 Eyes pupils and irises Overall: pupils equal, round, reactive to light and accomodation 04/30/2013 None Full Exam - General 1994 Constitutional general appearance Overall: well nourished 04/30/2013 None Full Exam - General 1994 Constitutional general appearance Overall: well developed 04/30/2013 None Full Exam - General 1994 Constitutional general appearance Overall: in no acute distress 04/30/2013 None Full Exam - ENT Neurologic orientation Overall: oriented to person, place and time 12/29/2012 None Full Exam - ENT Integument inspection of skin Overall: no rash, lesions 12/29/2012 None Full Exam - ENT Lymphatic palpation of lymph nodes Overall: posterior cervical chain benign 12/29/2012 None Full Exam - ENT Lymphatic palpation of lymph nodes Overall: anterior cervical chain benign 12/29/2012 None Full Exam - ENT Abdomen abdominal exam Overall: no tenderness 12/29/2012 None Full Exam - ENT Abdomen abdominal exam Overall: normal bowel sounds 12/29/2012 None Full Exam - ENT Cardiovascular auscultation of heart Overall: regular rate 12/29/2012 None Full Exam - ENT Cardiovascular auscultation of heart Overall: normal heart sounds 12/29/2012 None Full Exam - ENT Cardiovascular auscultation of heart Overall: no murmurs 12/29/2012 None Full Exam - ENT Respiratory auscultation Overall: breath sounds clear bilaterally 12/29/2012 None Full Exam - ENT Respiratory inspection Overall: no retractions 12/29/2012 None Full Exam - ENT Respiratory inspection Overall: normal rate 08/2013 None Full Exam - ENT Face and Head palpation Overall: no sinus tenderness 12/29/2012 None Full Exam - ENT Face and Head palpation Overall: no induration, no tenderness 12/29/2012 None Full Exam - ENT Ears/Nose/Throat otoscopic exam Overall: external auditory canals normal 12/29/2012 None Full Exam - ENT Ears/Nose/Throat otoscopic exam Overall: tympanic membranes normal 12/29/2012 None Full Exam - ENT Constitutional general appearance Overall: well nourished 12/29/2012 None Full Exam - ENT Constitutional general appearance Overall: well developed 12/29/2012 None Full Exam - ENT Constitutional general appearance Overall: in no acute distress 12/29/2012 None Full Exam - General 1994 Constitutional general appearance Overall: well developed 10/26/2012 None Full Exam - General 1994 Constitutional general appearance Overall: in no acute distress 10/26/2012 None Full Exam - General 1994 Constitutional general appearance Overall: well nourished 10/26/2012 None Full Exam - General 1994 Ears/Nose/Throat otoscopic exam Overall: external auditory canals clear 10/26/2012 None Full Exam - General 1994 Ears/Nose/Throat otoscopic exam Overall: tympanic membranes clear 10/26/2012 None Full Exam - General 1995 Ears/Nose/Throat oral cavity/pharynx/larynx Overall: oral mucosa clear 10/26/2012 None Full Exam - General 1995 Ears/Nose/Throat oral cavity/pharynx/larynx Overall: oropharyngeal mucosa clear 10/26/2012 None Full Exam - General 1995 Ears/Nose/Throat oral cavity/pharynx/larynx Overall: no masses 10/26/2012 None Full Exam - General 1994 Respiratory auscultation Overall: breath sounds clear bilaterally 10/26/2012 None Full Exam - General 1995 Cardiovascular extremities Overall: no clubbing 10/26/2012 None Full Exam - General 1995 Cardiovascular auscultation of heart Rate: regular rate 10/26/2012 None Full Exam - General 1994 Cardiovascular auscultation of heart Rhythm: regular rhythm 10/26/2012 None Full Exam - General 1994 Lymphatic neck nodes Overall: anterior cervical chain benign 10/26/2012 None Full Exam - General 1994 Lymphatic neck nodes Overall: posterior cervical chain benign 10/26/2012 None Full Exam - General 1994 Psychiatric orientation/consciousness Overall: oriented to person, place and time 10/26/2012 None Full Exam - General 1994 Integument inspection of skin Hair: alopecia 10/26/2012 diffuse thinning of hair on frontal and temporal region - 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 Full Exam - General 1994 Cardiovascular extremities Edema present: pitting 07/12/2012 None Full Exam - General 1994 Cardiovascular extremities Edema present: severity 1+ - 4 +: _ 07/12/2012 None Full Exam - General 1994 Cardiovascular auscultation of heart Rate: tachycardia 07/12/2012 None Full Exam - General 1994 Cardiovascular auscultation of heart Rhythm: regular rhythm 07/12/2012 None Full Exam - General 1994 Lymphatic neck nodes Overall: anterior cervical chain benign 07/12/2012 None Full Exam - General 1994 Lymphatic neck nodes Overall: posterior cervical chain benign 07/12/2012 None Full Exam - General 1994 Musculoskeletal gait and station Gait: asymmetric 07/12/2012 None Full Exam - General 1994 Psychiatric orientation/consciousness Overall: oriented to person, place and time 07/12/2012 None Full Exam - General 1994 Constitutional general appearance Overall: well developed 07/12/2012 None Full Exam - General 1994 Constitutional general appearance Overall: in no acute distress 07/12/2012 None Full Exam - General 1994 Constitutional general appearance Overall: well nourished 07/12/2012 None Full Exam - General 1994 Ears/Nose/Throat otoscopic exam Overall: external auditory canals clear 07/12/2012 None Full Exam - General 1994 Ears/Nose/Throat otoscopic exam Overall: tympanic membranes clear 07/12/2012 None Full Exam - General 1994 Ears/Nose/Throat oral cavity/pharynx/larynx Overall: oral mucosa clear 07/12/2012 None Full Exam - General 1994 Ears/Nose/Throat oral cavity/pharynx/larynx Overall: oropharyngeal mucosa clear 07/12/2012 None Full Exam - General 1994 Ears/Nose/Throat oral cavity/pharynx/larynx Overall: no masses 07/12/2012 None Full Exam - General 1994 Respiratory auscultation Lower lung field: crackles 07/12/2012 None Full Exam - General 1994 Lymphatic neck nodes Overall: posterior cervical chain benign 06/28/2012 None Full Exam - General 1994 Musculoskeletal gait and station Gait: asymmetric 06/28/2012 None Full Exam - General 1994 Psychiatric orientation/consciousness Overall: oriented to person, place and time 06/28/2012 None Full Exam - General 1994 Cardiovascular extremities Edema present: severity 1+ - 4 +: trace 06/28/2012 None Full Exam - General 1994 Cardiovascular extremities Overall: no clubbing 06/28/2012 None Full Exam - General 1994 Cardiovascular auscultation of heart Rate: regular rate 06/28/2012 None Full Exam - General 1994 Respiratory auscultation Overall: breath sounds clear bilaterally 06/28/2012 None Full Exam - General 1994 Constitutional general appearance Overall: well developed 06/28/2012 None Full Exam - General 1994 Constitutional general appearance Overall: in no acute distress 06/28/2012 None Full Exam - General 1994 Constitutional general appearance Overall: well nourished 06/28/2012 None Full Exam - General 1994 Ears/Nose/Throat otoscopic exam Overall: external auditory canals clear 06/28/2012 None Full Exam - General 1994 Ears/Nose/Throat otoscopic exam Overall: tympanic membranes clear 06/28/2012 None Full Exam - General 1994 Ears/Nose/Throat oral cavity/pharynx/larynx Overall: oral mucosa clear 06/28/2012 None Full Exam - General 1994 Ears/Nose/Throat oral cavity/pharynx/larynx Overall: oropharyngeal mucosa clear 06/28/2012 None Full Exam - General 1994 Ears/Nose/Throat oral cavity/pharynx/larynx Overall: no masses 06/28/2012 None Full Exam - General 1994 Cardiovascular extremities Edema present: pitting 06/28/2012 None Full Exam - General 1994 Cardiovascular auscultation of heart Rhythm: regular rhythm 06/28/2012 None Full Exam - General 1995 Lymphatic neck nodes Overall: anterior cervical chain benign 06/28/2012 None Full Exam - General 1995 Constitutional general appearance Overall: well developed 05/24/2012 None Full Exam - General 1995 Constitutional general appearance Overall: in no acute distress 05/24/2012 None Full Exam - General 1995 Constitutional general appearance Overall: well nourished 05/24/2012 None Full Exam - General 1995 Ears/Nose/Throat otoscopic exam Overall: external auditory canals clear 05/24/2012 None Full Exam - General 1995 Ears/Nose/Throat otoscopic exam Overall: tympanic membranes clear 05/24/2012 None Full Exam - General 1995 Ears/Nose/Throat oral cavity/pharynx/larynx Overall: oral mucosa clear 05/24/2012 None Full Exam - General 1995 Ears/Nose/Throat oral cavity/pharynx/larynx Overall: oropharyngeal mucosa clear 05/24/2012 None Full Exam - General 1995 Ears/Nose/Throat oral cavity/pharynx/larynx Overall: no masses 05/24/2012 None Full Exam - General 1994 Respiratory auscultation Lower lung field: crackles 05/24/2012 None Full Exam - General 1994 Cardiovascular extremities Edema present: pitting 05/24/2012 None Full Exam - General 1994 Cardiovascular extremities Edema present: severity 1+ - 4 +: _ 05/24/2012 None Full Exam - General 1994 Cardiovascular auscultation of heart Rate: tachycardia 05/24/2012 None Full Exam - General 1994 Cardiovascular auscultation of heart Rhythm: regular rhythm 05/24/2012 None Full Exam - General 1994 Lymphatic neck nodes Overall: anterior cervical chain benign 05/24/2012 None Full Exam - General 1994 Lymphatic neck nodes Overall: posterior cervical chain benign 05/24/2012 None Full Exam - General 1994 Musculoskeletal gait and station Gait: asymmetric 05/24/2012 None Full Exam - General 1994 Psychiatric orientation/consciousness Overall: oriented to person, place and time 05/24/2012 None Full Exam - General 1994 Eyes pupils and irises Overall: pupils equal, round, reactive to light and accomodation 05/24/2012 None Full Exam - General 1994 Neurologic gait Overall: no ataxia, no unsteadiness 05/24/2012 None Full Exam - General 1994 Psychiatric orientation/consciousness Overall: oriented to person, place and time 05/09/2012 None Full Exam - General 1994 Lymphatic neck nodes Overall: anterior cervical chain benign 05/09/2012 None Full Exam - General 1994 Lymphatic neck nodes Overall: posterior cervical chain benign 05/09/2012 None Full Exam - General 1994 Musculoskeletal gait and station Gait: asymmetric 05/09/2012 None Full Exam - General 1994 Cardiovascular extremities Edema present: pitting 05/09/2012 None Full Exam - General 1994 Cardiovascular extremities Edema present: severity 1+ - 4 +: 1+ ankles 05/09/2012 None Full Exam - General 1994 Cardiovascular auscultation of heart Rate: tachycardia 05/09/2012 None Full Exam - General 1994 Cardiovascular auscultation of heart Rhythm: regular rhythm 05/09/2012 None Full Exam - General 1994 Respiratory auscultation Lower lung field: crackles 05/09/2012 None Full Exam - General 1994 Ears/Nose/Throat otoscopic exam Overall: tympanic membranes clear 05/09/2012 None Full Exam - General 1994 Ears/Nose/Throat otoscopic exam Overall: external auditory canals clear 05/09/2012 None Full Exam - General 1995 Ears/Nose/Throat oral cavity/pharynx/larynx Overall: oropharyngeal mucosa clear 05/09/2012 None Full Exam - General 1994 Ears/Nose/Throat oral cavity/pharynx/larynx Overall: no masses 05/09/2012 None Full Exam - General 1995 Ears/Nose/Throat oral cavity/pharynx/larynx Overall: oral mucosa clear 05/09/2012 None Full Exam - General 1994 Constitutional general appearance Overall: well nourished 05/09/2012 None Full Exam - General 1994 Constitutional general appearance Overall: well developed 05/09/2012 None Full Exam - General 1994 Constitutional general appearance Overall: in no acute distress 05/09/2012 None Full Exam - General 1994 Constitutional general appearance Overall: well nourished 01/31/2012 None Full Exam - General 1994 Constitutional general appearance Overall: well developed 01/31/2012 None Full Exam - General 1994 Constitutional general appearance Overall: in no acute distress 01/31/2012 None Full Exam - General 1994 Eyes conjunctiva /eyelids Overall: conjunctiva clear 01/31/2012 None Full Exam - General 1994 Eyes conjunctiva /eyelids Overall: eyelids normal 01/31/2012 None Full Exam - General 1994 Eyes conjunctiva /eyelids Overall: cornea clear 01/31/2012 None Full Exam - General 1994 Eyes pupils and irises Overall: pupils equal, round, reactive to light and accomodation 01/31/2012 None Full Exam - General 1994 Ears/Nose/Throat otoscopic exam Overall: tympanic membranes clear 01/31/2012 None Full Exam - General 1994 Ears/Nose/Throat otoscopic exam Overall: external auditory canals clear 01/31/2012 None Full Exam - General 1994 Ears/Nose/Throat oral cavity/pharynx/larynx Posterior Pharynx: no post nasal drainage 01/31/2012 2 white spots left posterior pharynx, 1 right posterior pharynx Full Exam - General 1994 Respiratory auscultation Overall: breath sounds clear bilaterally 01/31/2012 None Full Exam - General 1994 Respiratory respiratory effort/rhythm Overall: normal rate 01/31/2012 None Full Exam - General 1994 Respiratory respiratory effort/rhythm Overall: no retractions 01/31/2012 None Full Exam - General 1994 Cardiovascular auscultation of heart Overall: regular rate 01/31/2012 None Full Exam - General 1994 Cardiovascular auscultation of heart Overall: normal heart sounds 01/31/2012 None Full Exam - General 1994 Cardiovascular auscultation of heart Overall: no murmurs 01/31/2012 None Full Exam - General 1994 Psychiatric orientation/consciousness Overall: oriented to person, place and time 01/31/2012 None Full Exam - General 1994 Lymphatic neck nodes Overall: anterior cervical chain benign 01/31/2012 None Full Exam - General 1994 Lymphatic neck nodes Overall: posterior cervical chain benign 01/31/2012 None Full Exam - General 1994 Neurologic cranial nerves Overall: crainial nerves 2 - 12 grossly intact 01/31/2012 None Full Exam - General 1994 Musculoskeletal head and neck Overall: cervical spine benign 01/31/2012 None Full Exam - General 1994 Musculoskeletal head and neck Overall: head atraumatic 01/31/2012 None Full Exam - General Respiratory respiratory effort/rhythm Overall: no retractions 12/29/2011 None Full Exam - General Respiratory respiratory effort/rhythm Overall: normal rate 12/29/2011 None Full Exam - General Cardiovascular auscultation of heart Overall: regular rate 12/29/2011 None Full Exam - General Cardiovascular auscultation of heart Overall: normal heart sounds 12/29/2011 None Full Exam - General Cardiovascular auscultation of heart Overall: no murmurs 12/29/2011 None Full Exam - General Abdomen abdominal exam Overall: no tenderness 12/29/2011 None Full Exam - General Abdomen abdominal exam Overall: normal bowel sounds 12/29/2011 None Full Exam - General Musculoskeletal spine , ribs and pelvis Overall: good posture 12/29/2011 None Full Exam - General Musculoskeletal gait and station Overall: normal gait 12/29/2011 None Full Exam - General Musculoskeletal gait and station Overall: normal station 12/29/2011 None Full Exam - General Psychiatric orientation/consciousness Overall: oriented to person, place and time 12/29/2011 None Full Exam - General Constitutional general appearance Overall: well nourished 12/29/2011 None Full Exam - General Constitutional general appearance Overall: well developed 12/29/2011 None Full Exam - General Constitutional general appearance Overall: in no acute distress 12/29/2011 None Full Exam - General Psychiatric mood and affect Overall: normal mood and affect 12/29/2011 None Full Exam - General Ears/Nose/Throat otoscopic exam Overall: external auditory canals clear 12/29/2011 None Full Exam - General Ears/Nose/Throat otoscopic exam Overall: tympanic membranes clear 12/29/2011 None Full Exam - General Ears/Nose/Throat oral cavity/pharynx/larynx Overall: oral mucosa clear 12/29/2011 None Full Exam - General Eyes pupils and irises Overall: pupils equal, round, reactive to light and accomodation 12/29/2011 None Full Exam - General Respiratory auscultation Overall: breath sounds clear bilaterally 12/29/2011 None Full Exam - General 1994 Constitutional general appearance Development: well developed 12/20/2011 None Full Exam - General 1994 Constitutional general appearance Development: appears stated age 0412/20/2011 None Full Exam - General 1994 Respiratory auscultation Overall: breath sounds clear bilaterally 12/20/2011 None Full Exam - General 1994 Respiratory respiratory effort/rhythm Overall: no retractions 12/20/2011 None Full Exam - General 1994 Respiratory respiratory effort/rhythm Overall: normal rate 12/20/2011 None Full Exam - General 1994 Cardiovascular auscultation of heart Overall: regular rate 12/20/2011 None Full Exam - General 1994 Cardiovascular auscultation of heart Overall: normal heart sounds 12/20/2011 None Full Exam - General 1994 Cardiovascular auscultation of heart Overall: no murmurs 12/20/2011 None Full Exam - General 1994 Cardiovascular extremities Overall: no clubbing 12/20/2011 varicose vein noted to left lower extremity. Bruising also noted. Full Exam - General 1994 Psychiatric orientation/consciousness Overall: oriented to person, place and time 12/20/2011 None Full Exam - General 1994 Integument inspection of skin Overall: no rash, lesions 12/20/2011 -small bruises noted to arms and legs. No active bleeding. Full Exam - Orthopedics Neurological orientation Overall: alert 08/31/2011 None Full Exam - Orthopedics Neurological orientation Overall: oriented to person, place and time 08/31/2011 None Full Exam - Orthopedics Neurological deep tendon reflex/nerve stretch Overall: deep tendon reflexes intact 08/31/2011 None Full Exam - Orthopedics Psychiatric orientation/consciousness Overall: oriented to person, place and time 08/31/2011 None Full Exam - Orthopedics MS: spine/rib/pelvis insp & palp - S/R/P Hip palpation: right trochanter tenderness 08/31/2011 None Full Exam - Orthopedics MS: spine/rib/pelvis insp & palp - S/R/P Hip inspection normal 08/31/2011 None Full Exam - Orthopedics MS: spine/rib/pelvis insp & palp - S/R/P Thoracic/lumbar muscles palpation: normal musculature 08/31/2011 None Full Exam - Orthopedics MS: spine/rib/pelvis insp & palp - S/R/P Sacroiliac palpation: normal sacroiliac joint 08/31/2011 None Full Exam - Orthopedics Constitutional general appearance Overall: well nourished 08/31/2011 None Full Exam - Orthopedics Constitutional general appearance Overall: well developed 08/31/2011 None Full Exam - Orthopedics Constitutional general appearance Overall: in no acute distress 08/31/2011 None Full Exam - Orthopedics Respiratory auscultation Overall: breath sounds clear bilaterally 08/31/2011 None Full Exam - Orthopedics Respiratory respiratory effort/rhythm Overall: no retractions 08/31/2011 None Full Exam - Orthopedics Respiratory respiratory effort/rhythm Overall: normal rate 08/31/2011 None Full Exam - Orthopedics Cardiovascular examination of vasculature Overall: no clubbing, cyanosis, edema 08/31/2011 None Full Exam - Orthopedics MS: spine/rib/pelvis insp & palp - S/R/P Lumbar spine palpation: normal spinous processes 08/31/2011 None Full Exam - Orthopedics MS: right lower extremity insp & palp - RLE Overall: normal appearance of leg 08/31/2011 None Full Exam - Orthopedics MS: right lower extremity insp & palp - RLE Overall: no crepitus or defects 08/31/2011 None Full Exam - Orthopedics MS: right lower extremity insp & palp - RLE Overall: thigh non-tender, without crepitus or defects 08/31/2011 None Full Exam - Orthopedics Constitutional general appearance Overall: well nourished 08/17/2011 None Full Exam - Orthopedics Constitutional general appearance Overall: well developed 08/17/2011 None Full Exam - Orthopedics Constitutional general appearance Overall: in no acute distress 08/17/2011 None Full Exam - Orthopedics Respiratory auscultation Overall: breath sounds clear bilaterally 08/17/2011 None Full Exam - Orthopedics Respiratory respiratory effort/rhythm Overall: no retractions 08/17/2011 None Full Exam - Orthopedics Respiratory respiratory effort/rhythm Overall: normal rate 08/17/2011 None Full Exam - Orthopedics Cardiovascular examination of vasculature Overall: no clubbing, cyanosis, edema 08/17/2011 None Full Exam - Orthopedics MS: spine/rib/pelvis insp & palp - S/R/P Lumbar spine palpation: normal spinous processes 08/17/2011 None Full Exam - Orthopedics MS: right lower extremity insp & palp - RLE Overall: normal appearance of leg 08/17/2011 None Full Exam - Orthopedics MS: right lower extremity insp & palp - RLE Overall: no crepitus or defects 08/17/2011 None Full Exam - Orthopedics MS: right lower extremity insp & palp - RLE Overall: thigh non-tender, without crepitus or defects 08/17/2011 None Full Exam - Orthopedics Neurological orientation Overall: alert 08/17/2011 None Full Exam - Orthopedics Neurological orientation Overall: oriented to person, place and time 08/17/2011 None Full Exam - Orthopedics Psychiatric orientation/consciousness Overall: oriented to person, place and time 08/17/2011 None Full Exam - Orthopedics Neurological deep tendon reflex/nerve stretch Overall: deep tendon reflexes intact 08/17/2011 None Full Exam - Orthopedics MS: spine/rib/pelvis insp & palp - S/R/P Hip palpation: no tenderness on palpation 08/17/2011 None Full Exam - General Constitutional general appearance Overall: well nourished 05/21/2011 None Full Exam - General Constitutional general appearance Overall: well developed 05/21/2011 None Full Exam - General Constitutional general appearance Overall: in no acute distress 05/21/2011 None Full Exam - General Eyes pupils and irises Overall: pupils equal, round, reactive to light and accomodation 05/21/2011 None Full Exam - General Respiratory auscultation Overall: breath sounds clear bilaterally 05/21/2011 None Full Exam - General Respiratory respiratory effort/rhythm Overall: no retractions 05/21/2011 None Full Exam - General Respiratory respiratory effort/rhythm Overall: normal rate 05/21/2011 None Full Exam - General Cardiovascular auscultation of heart Overall: regular rate 05/21/2011 None Full Exam - General Cardiovascular auscultation of heart Overall: normal heart sounds 05/21/2011 None Full Exam - General Cardiovascular auscultation of heart Overall: no murmurs 05/21/2011 None Full Exam - General Abdomen abdominal exam Overall: no tenderness 05/21/2011 None Full Exam - General Abdomen abdominal exam Overall: normal bowel sounds 05/21/2011 None Full Exam - General Musculoskeletal spine , ribs and pelvis Overall: good posture 05/21/2011 None Full Exam - General Musculoskeletal spine , ribs and pelvis Spine: tender @ thoracic spine 05/21/2011 at the costovertebral angle on the right when percussed Full Exam - General Musculoskeletal gait and station Overall: normal gait 05/21/2011 None Full Exam - General Musculoskeletal gait and station Overall: normal station 05/21/2011 None Full Exam - General Psychiatric orientation/consciousness Overall: oriented to person, place and time 05/21/2011 None Full Exam - General Psychiatric mood and affect Overall: normal mood and affect 05/21/2011 None Procedures Procedure Codes Date THER/PROPH/DIAG INJ SC/IM CPT-4: 02642 09/14/2017 ROCEPHIN, PER 250 MG CPT-4: J0696 09/14/2017 THER/PROPH/DIAG INJ SC/IM CPT-4: 94038 08/09/2017 ROCEPHIN, PER 250 MG CPT-4: J0696 08/09/2017 ROCEPHIN, PER 250 MG CPT-4: J0696 08/08/2017 URINALYSIS NONAUTO W/O SCOPE CPT-4: 32129 06/21/2017 URINALYSIS NONAUTO W/O SCOPE CPT-4: 53799 06/10/2017 PPPS, SUBSEQ VISIT CPT -4: G0439 12/17/2016 THER/PROPH/DIAG INJ SC/IM CPT-4: 04346 09/27/2016 TRIAMCINOLONE ACET INJ NOS CPT-4: J3301 09/27/2016 ADMIN INFLUENZA VIRUS VAC CPT-4: G0008 06/21/2016 FLU VACC 4 EMMA 3 YRS PLUS IM Formatting Model/CDA Sections, Assigned to/Nela Reddinga SNOMED CT: [id number] CPT-4: 33935Aogyzfn 06/21/2016 PNEUMOCOCCAL VACC 13 EMMA IM Formatting Model/CDA Sections, Assigned to/Vahid Kiki SNOMED CT: [id number] CPT-4: 75012Bxjviwj 07/21/2015 IMMUNIZATION ADMIN CPT -4: 51593 07/21/2015 THER/PROPH/DIAG INJ SC/IM CPT-4: 76361 09/05/2014 TENIVAC TD VACCINE NO PRSRV 7/> IM Assigned to CPT-4: 20412Fupfwjx 09/05/2014 ADMIN INFLUENZA VIRUS VAC CPT-4: G0008 06/14/2014 FLU VAC NO PRSV 4 EMMA 3 YRS+ Assigned to/Vahid Kiki CPT-4: 57967Vrxtmza 06/14/2014 55259 EST. PATIENT, LEVEL IV CPT-4: 21445 01/11/2014 URINALYSIS NONAUTO W/O SCOPE CPT-4: 23128 01/11/2014 KETOROLAC TROMETHAMINE INJ CPT-4: J1885 10/30/2013 PROMETHAZINE HCL INJECTION CPT-4: J2550 10/30/2013 ROUTINE VENIPUNCTURE CPT-4: 45142 08/20/2013 INJ TRIGGER POINT 1/2 MUSCL CPT-4: 31780 07/06/2013 IMMUNIZATION ADMIN CPT -4: 06235 06/28/2012 Influenza Virus Vaccine, Split Virus, >3 Yrs, IM CPT-4: 91817 06/28/2012 Pneumococcal Polysaccharide Vaccine, 23-Valent, Ad CPT-4: 24182 06/28/2012 URINALYSIS NONAUTO W/O SCOPE CPT-4: 03862 12/29/2011 KETOROLAC TROMETHAMINE INJ CPT-4: J1885 08/31/2011 THER/PROPH/DIAG INJ SC/IM CPT-4: 05934 08/31/2011 TRIAMCINOLONE ACET INJ NOS CPT-4: J3301 08/17/2011 THER/PROPH/DIAG INJ SC/IM CPT-4: 35648 08/17/2011 URINALYSIS NONAUTO W/O SCOPE CPT-4: 67264 08/17/2011 ROCEPHIN, PER 250 MG CPT-4: J0696 05/21/2011 THER/PROPH/DIAG INJ SC/IM CPT-4: 23579 05/21/2011 Vital Signs Date Vital 09/14/2017 Blood Pressure 1: 126/74 Code : 8480-6 Heart Rate 1: 95 bpm Height: SpO2: 95% Weight: 08/09/2017 Height: Weight: 08/08/2017 Blood Pressure 1: 126/86 Code : 8480-6 BMI: 28.3 Code : 53949-6 Heart Rate 1 : 83 bpm Height: 5'5" SpO2: 98% Weight: 170 lbs 06/10/2017 Blood Pressure 1: 110/72 Code : 8480-6 BMI: 29.1 Code : 07348-1 Heart Rate 1 : 84 bpm Height: 5'5" SpO2: 97% Weight: 175 lbs 03/04/2017 Blood Pressure 1: 102/66 Code : 8480-6 BMI: 28.4 Code : 23376-8 Heart Rate 1 : 91 bpm Height: 5'5" SpO2: 93% Weight: 170 lbs 8 oz 12/17/2016 Blood Pressure 1: 138/76 Code : 8480-6 BMI: 28.8 Code : 26053-3 Heart Rate 1 : 86 bpm Height: 5'5" SpO2: 96% Waist Measure (cm): 105 cm Weight: 173 lbs 11/25/2016 Blood Pressure 1: 110/68 Code : 8480-6 Heart Rate 1: 84 bpm Height: SpO2: 95% Weight: 11/18/2016 Blood Pressure 1: 120/78 Code : 8480-6 Heart Rate 1: 95 bpm Height: 5'5" SpO2: 95% 11/11/2016 Blood Pressure 1: 100/56 Code : 8480-6 BMI: 28.3 Code : 19975-7 Heart Rate 1 : 83 bpm Height: 5'5" SpO2: 94% Weight: 170 lbs 06/21/2016 Blood Pressure 1: 120/80 Code : 8480-6 BMI: 29.3 Code : 53191-5 Heart Rate 1 : 76 bpm Height: 5'6" SpO2: 90% Weight: 179 lbs 05/20/2016 Blood Pressure 1: 130/70 Code : 8480-6 BMI: 29.7 Code : 50382-7 Heart Rate 1 : 79 bpm Height: 5'6" SpO2: 96% Weight: 181 lbs 01/26/2016 Blood Pressure 1: 138/80 Code : 8480-6 BMI: 29.7 Code : 94471-0 Heart Rate 1 : 75 bpm Height: 5'6" SpO2: 95% Weight: 181 lbs 11/12/2015 Blood Pressure 1: 132/62 Code : 8480-6 BMI: 29.2 Code : 40817-5 Heart Rate 1 : 73 bpm Height: 5'6" SpO2: 95% Weight: 178 lbs 09/29/2015 Blood Pressure 1: 140/76 Code : 8480-6 BMI: 29.3 Code : 63646-9 Heart Rate 1 : 69 bpm Height: 5'6" SpO2: 97% Weight: 179 lbs 08/22/2015 Blood Pressure 1: 158/78 Code : 8480-6 Blood Pressure 1: 142/88 Code: 8480-6 BMI: 30.0 Code: 19106-6 Heart Rate 1: 98 bpm Height: 5'6" SpO2: 99% Temperature : 83.9 (C) / 183.0 (F) Weight: 183 lbs 07/21/2015 Blood Pressure 1: 130/90 Code : 8480-6 Blood Pressure 1: 130/88 Code: 8480-6 BMI: 29.8 Code: 97427-4 Heart Rate 1: 64 bpm Height: 5'6" SpO2: 96% Weight: 182 lbs 05/20/2015 Blood Pressure 1: 130/68 Code : 8480-6 Heart Rate 1: 93 bpm Height: 5'6" SpO2: 96% Weight: 01/24/2015 Blood Pressure 1: 128/74 Code : 8480-6 BMI: 29.2 Code : 14537-0 Heart Rate 1 : 88 bpm Height: 5'6" Weight: 178 lbs 12/23/2014 Blood Pressure 1: 102/62 Code : 8480-6 Heart Rate 1: 88 bpm Height: SpO2: 98% Weight: 10/08/2014 Blood Pressure 1: 118/78 Code : 8480-6 BMI: 30.0 Code : 64026-1 Heart Rate 1 : 78 bpm Height: 5'6" Weight: 183 lbs 09/24/2014 Blood Pressure 1: 158/98 Code : 8480-6 Heart Rate 1: 72 bpm Height: Temperature: 36.5 (C) / 97.7 (F) Weight: 07/22/2014 Blood Pressure 1: 120/68 Code : 8480-6 Heart Rate 1: 78 bpm Weight: 183 lbs 01/11/2014 Blood Pressure 1: 152/90 Code : 8480-6 Heart Rate 1: 60 bpm Temperature: 36.7 (C) / 98.1 (F) Weight: 01/07/2014 Blood Pressure 1: 122/80 Code : 8480-6 Heart Rate 1: 72 bpm Weight: 10/30/2013 Blood Pressure 1: 122/76 Code : 8480-6 Heart Rate 1: 84 bpm Temperature: 37.3 (C) / 99.1 (F) Weight: 09/25/2013 Blood Pressure 1: 112/78 Code : 8480-6 BMI: 30.2 Code : 40498-7 Heart Rate 1 : 84 bpm Height: 5'6" Weight: 184 lbs 08/20/2013 Blood Pressure 1: 132/70 Code : 8480-6 Weight: 07/06/2013 Blood Pressure 1: 126/80 Code : 8480-6 Heart Rate 1: 68 bpm Weight: 04/30/2013 Blood Pressure 1: 122/70 Code : 8480-6 BMI: 30.4 Code : 63021-2 Heart Rate 1 : 64 bpm Height: 5'6" Weight: 185 lbs 8 oz 12/29/2012 Blood Pressure 1: 136/86 Code : 8480-6 Heart Rate 1: 64 bpm Temperature: 36.5 (C) / 97.7 (F) Weight: 181 lbs 10/26/2012 Blood Pressure 1: 114/74 Code : 8480-6 Heart Rate 1: 68 bpm Respiratory Rate : 16 bpm Weight: 186 lbs 07/12/2012 Blood Pressure 1: 116/70 Code : 8480-6 Heart Rate 1: 76 bpm Weight: 186 lbs 06/28/2012 Blood Pressure 1: 184/90 Code : 8480-6 Heart Rate 1: 72 bpm Weight: 187 lbs 05/24/2012 Blood Pressure 1: 134/80 Code : 8480-6 Heart Rate 1: 68 bpm Weight: 186 lbs 05/09/2012 Blood Pressure 1: 182/110 Code: 8480-6 Heart Rate 1: 114 bpm SpO2: 96% Weight: 190 lbs 01/31/2012 Blood Pressure 1: 116/80 Code : 8480-6 Heart Rate 1: 96 bpm Temperature: 36.4 (C) / 97.6 (F) Weight: 12/29/2011 Blood Pressure 1: 162/88 Code : 8480-6 Heart Rate 1: 98 bpm Temperature: 36.6 (C) / 97.8 (F) Weight: 12/20/2011 Blood Pressure 1: 136/72 Code : 8480-6 Heart Rate 1: 88 bpm Weight: 08/31/2011 Blood Pressure 1: 137/85 Code : 8480-6 Blood Pressure 2: 152/97 Code: 8480-6 Heart Rate 1: 85 bpm Weight: 08/17/2011 Blood Pressure 1: 136/73 Code : 8480-6 BMI: 30.5 Code : 92522-0 Heart Rate 1 : 97 bpm Height: 5'5" Weight: 183 lbs 05/21/2011 Blood Pressure 1: 128/78 Code : 8480-6 BMI: 28.4 Code : 85486-6 Heart Rate 1 : 76 bpm Height: 5'6" Respiratory Rate: 16 bpm Weight: 173 lbs Functional Status No Functional Status data History of Present Illness Symptom Name Status Result Effective Date Notes finger pain Location in the left ring finger 09/14/2017 None finger pain Quality acute 09/14/2017 None finger pain Quality throbbing 09/14/2017 None finger pain Pertinent Findings fever 09/14/2017 None finger pain Pertinent Findings pain with movement 09/14/2017 None finger pain Pertinent Findings swelling 09/14/2017 None finger pain Pertinent Findings warmth 09/14/2017 None finger pain Onset of Symptom 1 days ago 09/14/2017 None finger pain Quality worsening 09/14/2017 None finger pain Quality constant 09/14/2017 None finger pain Severity moderate 09/14/2017 None finger pain Pertinent Findings stiffness 09/14/2017 None finger pain Pertinent Findings redness 09/14/2017 None finger pain Pertinent Findings purulent drainage 09/14/2017 None finger pain Location in the left ring finger 08/08/2017 None finger pain Onset of Symptom 4 days ago 08/08/2017 None finger pain Quality acute 08/08/2017 None finger pain Quality throbbing 08/08/2017 None finger pain Pertinent Findings pain with movement 08/08/2017 None finger pain Pertinent Findings Denies fever 08/08/2017 None finger pain Pertinent Findings warmth 08/08/2017 None finger pain Pertinent Findings swelling 08/08/2017 None fatigue Limitation on Activities moderately limits activities 06/10/2017 None fatigue Onset of Symptom 2 months ago 06/10/2017 None fatigue Frequency of Episodes daily 06/10/2017 None fatigue Onset and Resolution gradual in onset 06/10/2017 None insomnia Quality constant 06/10/2017 None fatigue Timing of Episodes no specific time 06/10/2017 None fatigue Triggers no known associated factors 06/10/2017 None fatigue Quality worsening 06/10/2017 None insomnia Onset and Resolution ongoing 06/10/2017 None insomnia Onset of Symptom _ months ago 06/10/2017 None insomnia Severity moderate 06/10/2017 None insomnia Frequency of Episodes increasing 06/10/2017 None insomnia Triggers no known associated factors 06/10/2017 None insomnia Pertinent Findings Denies depressed mood 06/10/2017 None insomnia Pertinent Findings Denies nausea 06/10/2017 None rash Quality acute None rash Onset and Resolution ongoing 03/04/2017 None rash Onset of Symptom 1 week ago 03/04/2017 None rash Limitation on Activities does not limit activities 03/04/2017 None rash Severity worsening 03/04/2017 None rash Pertinent Findings itching 03/04/2017 None rash Pertinent Findings pain 03/04/2017 None rash Pertinent Findings tenderness 03/04/2017 None rash Triggers no known triggers 03/04/2017 None Annual Medicare Wellness Exam Alcohol Use drinks 1 a month 12/17/2016 None Annual Medicare Wellness Exam Aspirin Use no 12/17/2016 None Annual Medicare Wellness Exam Blood Glucose (self reported) don't know 12/17/2016 None Annual Medicare Wellness Exam Blood Pressure (self reported ) borderline (120/80 - 139/89) 12/17/2016 None Annual Medicare Wellness Exam Cholesterol (self reported) high (240 or higher) 12/17/2016 None Annual Medicare Wellness Exam Hemaglobin A-1C (self reported ) never checked 12/17/2016 None Annual Medicare Wellness Exam Depression (last 6 months) almost never 12/17/2016 None Annual Medicare Wellness Exam Depression or Hopelessness some of the time 12/17/2016 None Annual Medicare Wellness Exam Handling Stress usually tasha effectively 12/17/2016 None Annual Medicare Wellness Exam Describe Your Health good 12/17/2016 None Annual Medicare Wellness Exam Exercise Habits exercises 7 days per week 12/17/2016 None Annual Medicare Wellness Exam Exercise Habits exercises 15 minutes per day 12/17/2016 None Annual Medicare Wellness Exam Hours of Sleep 5 12/17/2016 None Annual Medicare Wellness Exam Interaction with Friends yes 12/17/2016 None Annual Medicare Wellness Exam Interests & Pleasure almost all of the time 12/17/2016 None Annual Medicare Wellness Exam Life Satisfaction very satisfied 12/17/2016 None Annual Medicare Wellness Exam Motor Vehicle Safety always fastens seat belt: _ 12/17/2016 None Annual Medicare Wellness Exam Social & Emotional Support always 12/17/2016 None Annual Medicare Wellness Exam Stress some of the time 12/17/2016 None Annual Medicare Wellness Exam Sun Exposure protects skin when outdoors: no 12/17/2016 None Annual Medicare Wellness Exam Smoking and Tobacco Use non smoker 12/17/2016 None Annual Medicare Wellness Exam Nutrition servings of fried food / high fat foods per day: 1 2016 None Annual Medicare Wellness Exam Nutrition servings of high fiber / whole grain per day: 2-3 12/17/2016 None Annual Medicare Wellness Exam Nutrition servings of vegetables / fruit per day: 3-4 12/17/2016 None shoulder pain Location in the left glenohumeral joint 11/25/2016 None shoulder pain Quality acute 11/25/2016 None shoulder pain Onset and Resolution ongoing 11/25/2016 None shoulder pain Onset of Symptom _ weeks ago 11/25/2016 None shoulder pain Limitation on Activities does not limit activities 11/25/2016 None shoulder pain Frequency of Episodes unchanged 11/25/2016 None shoulder pain Triggers activity 11/25/2016 None shoulder pain Alleviating Factors rest 11/25/2016 None cough Location in the lung 11/25/2016 recent pneumonia-symptoms resolved cough Onset and Resolution resolved 11/25/2016 None cough Limitation on Activities does not limit activities 11/25/2016 None cough Frequency of Episodes decreasing 11/25/2016 None cough Triggers no known associated factors 11/25/2016 None shoulder pain Location deep 11/18/2016 left shoulder shoulder pain Quality sharp 11/18/2016 None shoulder pain Onset and Resolution sudden in onset 11/18/2016 None shoulder pain Exacerbating Factors rest 11/18/2016 None shoulder pain Pertinent Findings limited range of motion 11/18/2016 None shoulder pain Pertinent Findings loss of range of motion 11/18/2016 None shoulder pain Onset and Resolution ongoing 11/18/2016 None shoulder pain Quality stabbing 11/18/2016 None shoulder pain Quality intermittent 11/18/2016 None shoulder pain Pertinent Findings Denies stiffness 11/18/2016 None shoulder pain Pertinent Findings Denies swelling 11/18/2016 None shoulder pain Pertinent Findings Denies loss of strength 11/18/2016 None cough Location in the lung 11/18/2016 recent pneumonia cough Quality acute None cough Onset and Resolution ongoing 11/18/2016 None cough Onset of Symptom during adulthood 11/18/2016 None cough Frequency of Episodes decreasing 11/18/2016 None cough Pertinent Findings Denies dyspnea 11/18/2016 None cough Pertinent Findings Denies fever 11/18/2016 None elbow pain Location on the right 11/11/2016 None elbow pain Location in the posterior region 11/11/2016 None elbow pain Quality sharp pain 11/11/2016 None elbow pain Exacerbating Factors activity 11/11/2016 None elbow pain Pertinent Findings Denies decreased range of motion 11/11/2016 None elbow pain Pertinent Findings Denies loss of sensation in the arm 11/11/2016 None elbow pain Pertinent Findings pain with movement 11/11/2016 None elbow pain Pertinent Findings Denies pale forearm and hand 11/11/2016 None elbow pain Pertinent Findings foreign bodies 11/11/2016 states she has a piece of bone floating around elbow pain Mechanism of injury direct trauma 11/11/2016 None elbow pain Mechanism of injury fall onto the elbow 11/11/2016 None shoulder pain Location deep 11/11/2016 left shoulder shoulder pain Onset and Resolution sudden in onset 11/11/2016 None shoulder pain Quality constant 11/11/2016 None shoulder pain Quality sharp 11/11/2016 None shoulder pain Exacerbating Factors rest 11/11/2016 None shoulder pain Pertinent Findings limited range of motion 11/11/2016 None shoulder pain Pertinent Findings loss of range of motion 11/11/2016 None shoulder pain Mechanism of injury fall onto the shoulder 11/11/2016 None Hospital Follow Up _ pneumonia 11/11/2016 None Hospital Follow Up Quality acute illness 11/11/2016 None Hospital Follow Up Pertinent Findings Other: oxygen 11/11/2016 None cough Location in the lung 11/11/2016 None cough Quality acute None cough Onset and Resolution ongoing 11/11/2016 None cough Onset of Symptom during adulthood 11/11/2016 None cough Limitation on Activities does not limit activities 11/11/2016 None cough Frequency of Episodes decreasing 11/11/2016 None cough Significant Medical Conditions pulmonary disease 11/11/2016 recent pnuemonia-symptoms started 2 weeks ago-hospital from Tue- -at home on oral antibiotics cough Triggers no known associated factors 11/11/2016 None cough Pertinent Findings Denies chest discomfort 11/11/2016 None cough Pertinent Findings Denies dyspnea 11/11/2016 None hypertension Quality stable 06/21/2016 None hypertension Onset and Resolution ongoing 06/21/2016 None hypertension Onset of Symptom _ years ago 06/21/2016 None hypertension Blood Pressure Values patient checking blood pressure at home - did not bring in readings 06/21/2016 None well woman exam (65+ years) Pap Smear last normal performed on over 2 years ago 06/21/2016 None well woman exam (65+ years) Menstrual History menopause at age 41 06/21/2016 None well woman exam (65+ years) Obstetrical History 1 total pregnancies 06/21/2016 None well woman exam (65+ years) Nutrition and Exercise overweight 06/21/2016 None well woman exam (65+ years) Health Guidance self-breast exam 06/21/2016 None well woman exam (65+ years) Health Guidance regular mammogram 06/21/2016 None well woman exam (65+ years) Sexual Activity is monogamous 06/21/2016 None hypertension Pertinent Findings anxiety 06/21/2016 None hypertension Pertinent Findings Denies dizziness 06/21/2016 None hypertension Severity not consistently severe symptoms, the symptoms fluctuate from no symptoms to anxiety and headaches 06/21/2016 None hypertension Frequency of Episodes unchanged 06/21/2016 None well woman exam (65+ years) Lifestyle satisfactory work/m[facility] experience 06/21/2016 None well woman exam (65+ years) Cardiovascular Risk Factors hypertension 06/21/2016 None well woman exam (65+ years) Immunizations influenza vaccine (annually over 50 y.o.) 06/21/2016 None rash Location-Major in a generalized area 05/20/2016 buttock rash Color erythematous 05/20/2016 None rash Pertinent Findings Denies pain 05/20/2016 None rash Pertinent Findings Denies itching 05/20/2016 None rash Quality acute 09/2015 None rash Onset and Resolution ongoing 05/20/2016 None rash Onset of Symptom 1 week ago 05/20/2016 None rash Limitation on Activities does not limit activities 05/20/2016 None rash Severity worsening 05/20/2016 None pre-op/surgery consult Referred by Dr. Smyth 01/26/2016 None pre-op/surgery consult Prior Treatments surgery 01/26/2016 None pre-op/surgery consult Procedure to be performed RIGHT KNEE REPLACEMENT 01/26/2016 None hypertension Quality stable 01/26/2016 None hypertension Onset and Resolution ongoing 01/26/2016 None hypertension Blood Pressure Values patient checking blood pressure at home - did not bring in readings 01/26/2016 None hypertension Severity mild 01/26/2016 None hypertension Triggers stress 01/26/2016 None hypertension Alleviating Factors medication 01/26/2016 None hypertension Exacerbating Factors stress 01/26/2016 None hypertension Pertinent Findings Denies anxiety 01/26/2016 None hypertension Onset of Symptom _ years ago 01/26/2016 None cyst Location on the left arm 11/12/2015 None cyst Quality firm None cyst Onset and Resolution sudden in onset 11/12/2015 None cyst Onset of Symptom 10 days ago 11/12/2015 None cyst Frequency of Episodes daily 11/12/2015 None edema Onset and Resolution ongoing 09/29/2015 None edema Onset of Symptom 1 months ago 09/29/2015 None edema Limitation on Activities does not limit activities 09/29/2015 None edema Frequency of Episodes daily 09/29/2015 None edema Significant Past Medical History cardiac disease 09/29/2015 None edema Exacerbating Factors medication 09/29/2015 None edema Location on both legs 09/29/2015 None edema Quality painful 09/29/2015 None edema Quality pitting 09/29/2015 None edema Onset and Resolution ongoing 08/22/2015 None edema Onset of Symptom 1 months ago 08/22/2015 None edema Limitation on Activities does not limit activities 08/22/2015 None edema Frequency of Episodes daily 08/22/2015 None edema Exacerbating Factors medication 08/22/2015 None edema Location on both legs 08/22/2015 None edema Quality pitting 08/22/2015 None edema Quality painful 08/22/2015 None edema Significant Past Medical History cardiac disease 08/22/2015 None edema Onset and Resolution ongoing 07/21/2015 None edema Limitation on Activities does not limit activities 07/21/2015 None edema Frequency of Episodes decreasing 07/21/2015 None edema Significant Medications diuretics 07/21/2015 None edema Triggers no known associated factors 07/21/2015 None edema Pertinent Findings Denies limb redness 07/21/2015 None edema Pertinent Findings Denies dyspnea 07/21/2015 None edema Pertinent Findings Denies weight loss 07/21/2015 None edema Location on both ankles 07/21/2015 None edema Quality chronic 07/21/2015 None edema Alleviating Factors medication 07/21/2015 None edema Alleviating Factors rest 07/21/2015 None edema Pertinent Findings Denies tachycardia 07/21/2015 None wound follow up Procedure Performed knee surgery 05/20/2015 None wound follow up Date of procedure __/__/_ _ 05/20/2015 None wound follow up Pertinent Findings redness around the incision site 05/20/2015 None edema Onset and Resolution ongoing 05/20/2015 None edema Onset of Symptom _ weeks ago 05/20/2015 None edema Limitation on Activities does not limit activities 05/20/2015 None edema Frequency of Episodes increasing 05/20/2015 left leg edema Triggers prolonged sitting 05/20/2015 None edema Pertinent Findings Denies dark urine 05/20/2015 None edema Pertinent Findings Denies dyspnea 05/20/2015 None edema Pertinent Findings Denies dyspnea on exertion 05/20/2015 None edema Pertinent Findings Denies nausea 05/20/2015 None edema Pertinent Findings Denies palpitations 05/20/2015 None edema Location on the left leg 05/20/2015 None edema Quality acute None anxiety Quality chronic 01/24/2015 None anxiety Onset and Resolution ongoing 01/24/2015 None anxiety Onset of Symptom during adulthood 01/24/2015 None anxiety Limitation on Activities does not limit activities 01/24/2015 None anxiety Frequency of Episodes decreasing 01/24/2015 None anxiety Triggers stress 01/24/2015 None anxiety Alleviating Factors medication 01/24/2015 [facility] Follow Up _ musculoskeletal disorder 12/23/2014 None Hospital Follow Up Quality improving 12/23/2014 None Hospital Follow Up Severity moderate 12/23/2014 None Hospital Follow Up Significant Medical Conditions trauma 12/23/2014 None hypertension Quality stable 10/08/2014 None hypertension Onset and Resolution ongoing 10/08/2014 None hypertension Blood Pressure Values patient checking blood pressure at home - did not bring in readings 10/08/2014 None hypertension Severity mild 10/08/2014 None hypertension Triggers stress 10/08/2014 None hypertension Alleviating Factors medication 10/08/2014 None hypertension Exacerbating Factors stress 10/08/2014 None hypertension Pertinent Findings Denies anxiety 10/08/2014 None hypertension Quality stable 09/24/2014 None hypertension Onset and Resolution ongoing 09/24/2014 None hypertension Blood Pressure Values patient checking blood pressure at home - did not bring in readings 09/24/2014 None hypertension Severity mild 09/24/2014 None hypertension Triggers stress 09/24/2014 None hypertension Alleviating Factors medication 09/24/2014 None hypertension Exacerbating Factors stress 09/24/2014 None hypertension Pertinent Findings Denies anxiety 09/24/2014 None color change Location-Major on the legs 07/22/2014 None color change Color pink 07/22/2014 None color change Onset of Symptom 1 month ago 07/22/2014 None color change Pertinent Findings pain 07/22/2014 None color change Pertinent Findings tenderness 07/22/2014 None edema Onset of Symptom 3-4 weeks ago 07/22/2014 Dr. Meza removed 10cc of fluid that has returned to knee. abdominal pain Location in the RLQ 01/11/2014 None abdominal pain Quality sharp 01/11/2014 None abdominal pain Onset and Resolution ongoing 01/11/2014 None abdominal pain Pertinent Findings fever 01/11/2014 None abdominal pain Location in the RUQ 01/11/2014 None abdominal pain Onset of Symptom 1 weeks ago 01/11/2014 None abdominal pain Limitation on Activities moderately limits activities 01/11/2014 None abdominal pain Limitation on Activities is incapacitating 01/11/2014 None abdominal pain Frequency of Episodes increasing 01/11/2014 None abdominal pain Significant Medications antibiotics 01/11/2014 None abdominal pain Triggers no known associated factors 01/11/2014 None abdominal pain Pertinent Findings Denies abdominal distension 01/11/2014 None abdominal pain Pertinent Findings diverticulosis 01/11/2014 None abdominal pain Pertinent Findings Denies dyspepsia 01/11/2014 None abdominal pain Pertinent Findings Denies vomiting 01/11/2014 None abdominal pain Pertinent Findings Denies urinary urgency 01/11/2014 None abdominal pain Pertinent Findings nausea 01/11/2014 None abdominal pain Pertinent Findings Denies weight loss 01/11/2014 None abdominal pain Pertinent Findings Denies increased appetite 01/11/2014 None abdominal pain Location in the RUQ 01/07/2014 None abdominal pain Radiating the back 01/07/2014 None abdominal pain Quality acute 01/07/2014 None abdominal pain Quality sharp 01/07/2014 None abdominal pain Quality worsening 01/07/2014 None abdominal pain Pertinent Findings Denies emesis 01/07/2014 None abdominal pain Pertinent Findings Denies nausea 01/07/2014 None abdominal pain Triggers position change 01/07/2014 None abdominal pain Limitation on Activities moderately limits activities 01/07/2014 None diarrhea Onset of Symptom 2 days ago 10/30/2013 None diarrhea Pertinent Findings abdominal distension 10/30/2013 None diarrhea Pertinent Findings cramping 10/30/2013 None diarrhea Pertinent Findings chills 10/30/2013 None diarrhea Pertinent Findings lethargy 10/30/2013 None diarrhea Pertinent Findings nausea 10/30/2013 None diarrhea Pertinent Findings bloating 10/30/2013 None diarrhea Quality acute 10/30/2013 None diarrhea Onset and Resolution ongoing 10/30/2013 None diarrhea Limitation on Activities does not limit activities 10/30/2013 None diarrhea Frequency of Episodes >8 stools per day 10/30/2013 None diarrhea Timing of Episodes no specific time 10/30/2013 None diarrhea Triggers no known associated factors 10/30/2013 None nausea Frequency of Episodes increasing 10/30/2013 None nausea Triggers no known associated factors 10/30/2013 None hypertension Quality chronic 09/25/2013 None hypertension Onset and Resolution ongoing 09/25/2013 None rash Location-Trunk on the lower abdomen 09/25/2013 under abdominal folds rash Quality acute 03/2014 None rash Color erythematous 09/25/2013 None rash Onset and Resolution ongoing 09/25/2013 None rash Limitation on Activities does not limit activities 09/25/2013 None rash Severity moderate 09/25/2013 None rash Triggers no known triggers 09/25/2013 None rash Pertinent Findings Denies fever 09/25/2013 None rash Pertinent Findings Denies pain 09/25/2013 None myalgias Location on both feet 08/20/2013 None myalgias Location on the left leg 08/20/2013 None myalgias Quality cramping 08/20/2013 None myalgias Onset and Resolution sudden in onset 08/20/2013 None myalgias Onset of Symptom 1 month ago 08/20/2013 None myalgias Timing of Episodes during sleep 08/20/2013 None myalgias Length of Episodes 1 hour 08/20/2013 None myalgias Frequency of Episodes weekly 08/20/2013 None myalgias Frequency of Episodes increasing 08/20/2013 None myalgias Triggers no known associated factors 08/20/2013 None fatigue Limitation on Activities moderately limits activities 08/20/2013 None fatigue Onset of Symptom 2 weeks ago 08/20/2013 None fatigue Frequency of Episodes daily 08/20/2013 None fatigue Triggers no known associated factors 08/20/2013 None fatigue Pertinent Findings insomnia 08/20/2013 None fatigue Quality worsening 08/20/2013 None neck pain Location on the right 07/06/2013 None neck pain Location in the upper cervical/ occipital area 07/06/2013 None neck pain Quality aching 07/06/2013 None neck pain Onset and Resolution ongoing 07/06/2013 None neck pain Pertinent Findings Denies right arm numbness 07/06/2013 None neck pain Alleviating Factors medication 07/06/2013 hydrocodone--takes the edge off neck pain Radiating does not radiate 07/06/2013 None neck pain Limitation on Activities does not limit activities 07/06/2013 None neck pain Frequency of Episodes increasing 07/06/2013 None well woman exam (40-65 years) Pap Smear normal results 04/30/2013 None well woman exam (40-65 years) Menstrual History menopause at age _ 04/30/2013 hysterectomy age 38 or 39 well woman exam (40-65 years) Lifestyle no history of physical abuse 04/30/2013 None well woman exam (40-65 years) Control none 04/30/2013 None well woman exam (40-65 years) Cardiovascular Risk Factors hypertension 04/30/2013 None well woman exam (40-65 years) Cardiovascular Risk Factors dyslipidemia 04/30/2013 None well woman exam (40-65 years) Health Guidance baseline mammogram 04/30/2013 None well woman exam (40-65 years) Immunizations tetanus-diphtheria booster 04/30/2013 None well woman exam (40-65 years) Immunizations influenza vaccine (annually over 50 y.o.) 04/30/2013 None well woman exam (40-65 years) Sexual Activity experiences sexual satisfaction 04/30/2013 None sinus congestion Pertinent Findings Denies hoarseness 12/29/2012 None sinus congestion Pertinent Findings Denies vomiting 12/29/2012 None diarrhea Exacerbating Factors medication 12/29/2012 was on bactrim and amoxicillin sinus congestion Severity mild 12/29/2012 None sinus congestion Frequency of Episodes increasing 12/29/2012 None sinus congestion Significant Medical Conditions allergic rhinitis 12/29/2012 None sinus congestion Significant Medications antibiotics 12/29/2012 recent bactrim and amoxicillin sinus congestion Triggers allergens 12/29/2012 None diarrhea Frequency of Episodes >8 stools per day 12/29/2012 None sinus congestion Onset and Resolution sudden in onset 12/29/2012 None sinus congestion Onset of Symptom 1 weeks ago 12/29/2012 None diarrhea Quality acute 12/29/2012 None diarrhea Quality watery 12/29/2012 None diarrhea Quality loose 12/29/2012 None diarrhea Onset and Resolution sudden in onset 12/29/2012 None diarrhea Pertinent Findings chills 12/29/2012 None diarrhea Pertinent Findings Denies edema 12/29/2012 None diarrhea Pertinent Findings nausea 12/29/2012 None diarrhea Pertinent Findings lethargy 12/29/2012 None diarrhea Pertinent Findings Denies dyspnea 12/29/2012 None diarrhea Pertinent Findings lightheadedness 12/29/2012 None diarrhea Pertinent Findings Denies cramping 12/29/2012 None diarrhea Pertinent Findings Denies flatulence 12/29/2012 None diarrhea Pertinent Findings Denies heartburn 12/29/2012 None diarrhea Onset of Symptom 5 days ago 12/29/2012 None sinus congestion Quality acute 12/29/2012 None sinus congestion Location on both sides 12/29/2012 None sinus congestion Pertinent Findings Denies cough 12/29/2012 None sinus congestion Pertinent Findings decreased energy level 12/29/2012 None alopecia Quality worsening 10/26/2012 None alopecia Location diffusely 10/26/2012 None alopecia Onset and Resolution ongoing 10/26/2012 None alopecia Limitation on Activities does not limit activities 10/26/2012 None alopecia Severity mild 10/26/2012 None alopecia Triggers no known associated factors 10/26/2012 None alopecia Pertinent Findings Denies broken -off hairs 10/26/2012 None alopecia Pertinent Findings Denies cough 10/26/2012 None alopecia Pertinent Findings Denies hair pulling 10/26/2012 None alopecia Pertinent Findings Denies itching 10/26/2012 None alopecia Pertinent Findings Denies nail pitting 10/26/2012 None alopecia Pertinent Findings Denies polyuria 10/26/2012 None alopecia Pertinent Findings Denies scalp erythema 10/26/2012 None alopecia Pertinent Findings Denies scalp excoriations 10/26/2012 None alopecia Pertinent Findings Denies scalp scaling 10/26/2012 None blood pressure followup Quality improving 07/12/2012 None blood pressure followup Quality stable 07/12/2012 None blood pressure followup Onset and Resolution ongoing 07/12/2012 None weight gain/obesity Onset and Resolution sudden in onset 06/28/2012 None edema Onset and Resolution ongoing 06/28/2012 None edema Limitation on Activities does not limit activities 06/28/2012 None edema Timing of Episodes at night 06/28/2012 okay in the morning edema Significant Medications diuretics 06/28/2012 as needed. edema Triggers no known associated factors 06/28/2012 None edema Alleviating Factors medication 06/28/2012 None edema Pertinent Findings Denies dyspnea 06/28/2012 None edema Pertinent Findings Denies dyspnea on exertion 06/28/2012 None edema Pertinent Findings Denies lightheadedness 06/28/2012 None edema Pertinent Findings Denies nausea 06/28/2012 None edema Pertinent Findings Denies near syncope 06/28/2012 None edema Pertinent Findings Denies palpitations 06/28/2012 None edema Pertinent Findings Denies tachycardia 06/28/2012 None edema Pertinent Findings Denies tachypnea 06/28/2012 None edema Pertinent Findings Denies weight loss 06/28/2012 None edema Location on the left ankle 06/28/2012 None edema Location on the right ankle 06/28/2012 None hypertension Quality stable 05/24/2012 None hypertension Onset and Resolution ongoing 05/24/2012 None hypertension Blood Pressure Values patient checking blood pressure at home - did not bring in readings 05/24/2012 None hypertension Severity mild 05/24/2012 None hypertension Triggers stress 05/24/2012 None hypertension Exacerbating Factors stress 05/24/2012 None hypertension Alleviating Factors medication 05/24/2012 None hypertension Pertinent Findings Denies anxiety 05/24/2012 None blood pressure followup Onset and Resolution ongoing 05/09/2012 None blood pressure followup Onset of Symptom during adulthood 05/09/2012 None blood pressure followup Blood Pressure Values pt checking blood pressure at home, did not bring in to clinic 05/09/2012 None blood pressure followup Blood Pressure Values Stage 2:SBP 160-179 mmHg / DBP 100-109 mmHg 05/09/2012 States for the past 3 weeks her blood pressure has been increasing blood pressure followup Frequency of Episodes increasing 05/09/2012 None blood pressure followup Significant Medical Conditions cardiac disease 05/09/2012 None blood pressure followup Triggers no known associated factors 05/09/2012 None blood pressure followup Alleviating Factors medication 05/09/2012 None edema Onset and Resolution ongoing 05/09/2012 None edema Onset of Symptom 3 weeks ago 05/09/2012 None edema Limitation on Activities does not limit activities 05/09/2012 None edema Timing of Episodes at night 05/09/2012 None edema Frequency of Episodes increasing 05/09/2012 None edema Pertinent Findings Denies palpitations 05/09/2012 None edema Pertinent Findings Denies lightheadedness 05/09/2012 None edema Pertinent Findings tachycardia 05/09/2012 None edema Location on both ankles 05/09/2012 None edema Quality acute None edema Triggers no known associated factors 05/09/2012 None diarrhea Quality acute 01/31/2012 None diarrhea Quality loose 01/31/2012 None diarrhea Quality watery 01/31/2012 None diarrhea Quality worsening 01/31/2012 None diarrhea Onset and Resolution sudden in onset 01/31/2012 None diarrhea Pertinent Findings fecal urgency 01/31/2012 states rectum is very sore diarrhea Pertinent Findings abdominal distension 01/31/2012 None diarrhea Pertinent Findings cramping 01/31/2012 None sore throat Location diffusely 01/31/2012 None sore throat Quality acute 01/31/2012 None sore throat Onset and Resolution sudden in onset 01/31/2012 None diarrhea Onset of Symptom 3 days ago 01/31/2012 States it improved, but started again on Tuesday. sore throat Onset of Symptom 4 days ago 01/31/2012 None sore throat Limitation on Activities does not limit oral intake 01/31/2012 None sore throat Frequency of Episodes decreasing 01/31/2012 None sore throat Significant Medical Conditions allergic rhinitis 01/31/2012 None sore throat Triggers no known associated factors 01/31/2012 None diarrhea Quality acute 12/29/2011 None diarrhea Onset and Resolution ongoing 12/29/2011 None diarrhea Onset of Symptom 5 days ago 12/29/2011 None diarrhea Limitation on Activities does not limit activities 12/29/2011 None diarrhea Frequency of Episodes >8 stools per day 12/29/2011 None diarrhea Timing of Episodes no specific time 12/29/2011 None diarrhea Triggers no known associated factors 12/29/2011 None dysuria Quality acute 12/29/2011 None dysuria Onset and Resolution ongoing 12/29/2011 None dysuria Onset of Symptom 2 days ago 12/29/2011 None dysuria Limitation on Activities does not limit urination 12/29/2011 None dysuria Frequency of Episodes increasing 12/29/2011 None dysuria Significant Medical Conditions recurrent urinary tract infections 12/29/2011 None dysuria Triggers no known associated factors 12/29/2011 None abnormal bleeding and bruising Location on the skin 12/20/2011 -left forearms, breasts, left leg abnormal bleeding and bruising Quality acute 12/20/2011 None abnormal bleeding and bruising Onset and Resolution ongoing 12/20/2011 None abnormal bleeding and bruising Onset of Symptom 2 weeks ago 12/20/2011 states she has noticed over the past 2 weeks. States she had a blood vessel break after getting out of the hottub last night and she had a puddle of blood abnormal bleeding and bruising Intervention Required local pressure 12/20/2011 None abnormal bleeding and bruising Severity mild 12/20/2011 None abnormal bleeding and bruising Triggers no known associated factors 12/20/2011 None abnormal bleeding and bruising Alleviating Factors pressure 12/20/2011 None sciatica Quality acute 08/31/2011 None sciatica Onset and Resolution improved during the day 08/31/2011 -states the pain radiating down her leg is much better since taking the anti- inflammatories. sciatica Triggers activity 08/31/2011 None sciatica Alleviating Factors medication 08/31/2011 None hip pain Location in the groin 08/31/2011 None hip pain Location in the greater trochanteric region 08/31/2011 None hip pain Quality tenderness 08/31/2011 None hip pain Onset and Resolution ongoing 08/31/2011 None hip pain Onset of Symptom 1-2 months ago. 08/31/2011 States she did fall about a month ago but had the pain before that. States she currently has some right hip pain that goes into her groin. States it is painful to go up and down steps. hip pain Frequency of Episodes unchanged 08/31/2011 None hip pain Severity moderate 08/31/2011 None hip pain Significant Medications NSAID's 08/31/2011 None leg pain/sciatica Location right leg sciatica 08/17/2011 None leg pain/sciatica Quality chronic 08/17/2011 None leg pain/sciatica Onset of Symptom 3-4 weeks ago 08/17/2011 None leg pain/sciatica Limitation on Activities moderately limits activities 08/17/2011 None leg pain/sciatica Onset and Resolution ongoing 08/17/2011 None leg pain/sciatica Severity moderate 08/17/2011 None leg pain/sciatica Frequency of Episodes recurrent 08/17/2011 None fatigue Quality worsening 08/17/2011 due to pain fatigue Onset and Resolution ongoing 08/17/2011 None fatigue Limitation on Activities does not limit activities 08/17/2011 None fatigue Frequency of Episodes increasing 08/17/2011 None fever Temperature 100 degrees 05/21/2011 Has been taking Advil fatigue Quality worsening 05/21/2011 None back pain Location in the right lower back area 05/21/2011 None back pain Location in the right middle back area 05/21/2011 None back pain Quality acute 05/21/2011 None back pain Quality aching 05/21/2011 None back pain Quality discomfort 05/21/2011 None back pain Onset and Resolution ongoing 05/21/2011 None back pain Limitation on Activities moderately limits activities 05/21/2011 None back pain Frequency of Episodes unchanged 05/21/2011 None back pain Triggers no known associated factors 05/21/2011 None back pain Alleviating Factors rest 05/21/2011 None back pain Initial treatment medication 05/21/2011 None nausea Quality acute 05/21/2011 None nausea Onset and Resolution ongoing 05/21/2011 None nausea Severity mild 05/21/2011 None nausea Triggers no known associated factors 05/21/2011 None nausea Alleviating Factors no alleviatng factors 05/21/2011 None Advance Directives No Advance Directive data Encounters Encounter Performer Location Codes Date [id number] EST. PATIENT, LEVEL III Diagnosis: Cellulitis of left finger[ICD10: L03.012] Annemarie rCisostomo MD, [facility] CPT-4: [id number] 09/14/2017 [id number] EST. PATIENT, LEVEL III Diagnosis: Cellulitis of left finger[ICD10: L03.012] Chela Crisostomo MD, [facility] CPT-4: [id number] 08/08/2017 [id number] EST. PATIENT, LEVEL IV Diagnosis: Essential (primary) hypertension[ICD10: I10] Diagnosis: Dysuria[ICD10: R30.0] Diagnosis: Rash and other nonspecific skin eruption[ICD10: R21] Diagnosis: Other insomnia[ICD10: G47.09] Diagnosis: Other fatigue[ICD10: R53.83] Diagnosis: Vitamin B12 deficiency anemia, unspecified[ICD10: D51.9] Chela Crisostomo MD , [facility] CPT-4: [id number] 06/10/2017 ([id number]) [id number] EST. PATIENT, LEVEL III Diagnosis: Rash and other nonspecific skin eruption[ICD10: R21] Chela Crisostomo MD, [facility] CPT-4: 31924 03/04/2017 ([id number]) 13751 EST. PATIENT, LEVEL III Diagnosis: Cough[ICD10: R05] Diagnosis: Pneumonia, unspecified organism[ICD10: J18.9] Diagnosis: Pain in left shoulder[ICD10: M25.512] Chela Crisostomo MD, [facility] CPT-4: 55021 11/25/2016 ([id number]) 83375 EST. PATIENT, LEVEL III Diagnosis: Pain in left shoulder[ICD10: M25.512] Diagnosis: Pneumonia, unspecified organism[ICD10: J18.9] Chela Crisostomo MD, [facility] CPT-4: 58203 11/18/2016 ([id number]) 04623 EST. PATIENT, LEVEL IV Diagnosis: Cough[ICD10: R05] Diagnosis: Pneumonia, unspecified organism[ICD10: J18.9] Diagnosis: Hypoxemia[ICD10: R09.02] Chela Crisostomo MD, [facility] CPT-4: 61361 11/11/2016 ([id number]) 26413 EST. PATIENT, LEVEL IV Diagnosis: Encounter for gynecological examination (general) (routine) without abnormal findings[ICD10: Z01.419] Chela Crisostomo MD, [facility] CPT-4: 19573 06/21/2016 ([id number]) 56085 EST. PATIENT, LEVEL IV Diagnosis: Pressure ulcer of right buttock, stage 2[ICD10: L89.312] Diagnosis: Essential (primary) hypertension[ICD10: I10] Diagnosis: Myalgia[ICD10: M79.1] Chela Crisostomo MD, [facility] CPT-4: 84187 05/20/2016 ([id number]) 23366 EST. PATIENT, LEVEL III Diagnosis: Essential (primary) hypertension[ICD10: I10] Diagnosis: Unilateral primary osteoarthritis, right knee[ICD10: M17.11] Chela Crisostomo MD, [facility] CPT-4: 77855 01/26/2016 44843 EST. PATIENT, LEVEL IV Diagnosis: Cutaneous abscess of left upper limb[ICD10: L02.414] Annemarie Crisostomo MD, [facility] CPT-4: 57745 11/12/2015 13732 EST. PATIENT, LEVEL IV Diagnosis: Essential (primary) hypertension[ICD10: I10] Diagnosis: Localized edema[ICD10: R60.0] Chela Crisostomo MD [facility] CPT-4: 67242 09/29/2015 ([id number]) 67776 EST. PATIENT, LEVEL III Diagnosis: Essential (primary) hypertension[ICD10: I10] Diagnosis: Localized edema[ICD10: R60.0] Chela Crisostomo MD, [facility] CPT-4: 77804 08/22/2015 ([id number]) 61636 EST. PATIENT, LEVEL IV Diagnosis: Essential (primary) hypertension[ICD10: I10] Diagnosis: Localized edema[ICD10: R60.0] Diagnosis: Pain in leg, unspecified[ICD10: M79.606] Diagnosis: Primary generalized (osteo)arthritis[ICD10: M15.0] Diagnosis: VACCIN STREP PNEUMONIAE[ICD10: Z23] Chela Crisostomo MD, [facility] CPT-4: 76155 07/21/2015 ([id number]) 46268 EST. PATIENT, LEVEL III Diagnosis: Edema[ICD9: 782.3] Diagnosis: Presence of surgical incision[ICD9: V49.89] Paty Crisostomo MD, [facility] CPT-4: 21570 05/20/2015 ([id number]) 94561 EST. PATIENT, LEVEL III Diagnosis: ESSENTIAL HYPERTENSION[ICD9: 401.9] Diagnosis: Leg pain[ICD9: 729.5] Paty Crisostomo MD, [facility] CPT-4: 37523 01/24/2015 ([id number]) 29720 EST. PATIENT, LEVEL III Diagnosis: ESSENTIAL HYPERTENSION[ICD9: 401.9] Paty Crisostomo MD, [facility] CPT-4: 42456 12/23/2014 ([id number]) 40107 EST. PATIENT, LEVEL III Diagnosis: ESSENTIAL HYPERTENSION[ICD9: 401.9] Diagnosis: Irritable bowel[ICD9: 564.1] Paty Crisostomo MD, [facility] CPT- 4: 05099 10/08/2014 ([id number]) 16167 EST. PATIENT, LEVEL V Diagnosis: ESSENTIAL HYPERTENSION[ICD9: 401.9] Diagnosis: Varicose veins[ICD9: 454.9] Diagnosis: Leg pain[ICD9: 729.5] Diagnosis: Leg cramps[ICD9: 729.82] Diagnosis: Back pain[ICD9: 724.5] Diagnosis: Diarrhea[ICD9: 787.91] Diagnosis: Abdominal pain[ICD9: 789.00] Paty Crisostomo MD, [facility] CPT- 4: 31643 09/24/2014 ([id number]) 35883 EST. PATIENT, LEVEL III Diagnosis: Varicose veins[ICD9: 454.9] Diagnosis: Edema[ICD9: 782.3] Chela Crisostomo MD, [facility] CPT-4: 29495 07/22/2014 ([id number]) 96740 EST. PATIENT, LEVEL IV Diagnosis: Abdominal pain[ICD9: 789.00] Diagnosis: Back pain[ICD9: 724.5] Paty Crisostomo MD, [facility] CPT-4: 59157 01/07/2014 ([id number]) 40928 EST. PATIENT, LEVEL IV Diagnosis: Diarrhea[ICD9: 787.91] Diagnosis: Nausea and vomiting[ICD9: 787.01] Diagnosis: Abdominal pain[ICD9: 789.00] Chela Crisostomo MD, [facility] CPT-4: 00877 10/30/2013 ([id number]) 10364 EST. PATIENT, LEVEL IV Diagnosis: Tinea cruris[ICD9: 110.3] Diagnosis: ESSENTIAL HYPERTENSION[SNOMED: 44206338] Diagnosis: Elevated blood sugar[ICD9: 790.29] Chela Crisostomo MD, [facility] CPT-4: 89667 09/25/2013 ([id number]) 53376 EST. PATIENT, LEVEL IV Diagnosis: Leg cramps[ICD9: 729.82] Diagnosis: ESSENTIAL HYPERTENSION[SNOMED: 48527597] Diagnosis: DEFICIENCY ANEMIA[ICD9: 281.9] Diagnosis: ABN THYROID FUNCT STUDY[ICD9: 794.5] Diagnosis: Abnormal glucose[ICD9: 790.29] Diagnosis: Insomnia[ICD9: 780.52] Diagnosis: Leg pain[ICD9: 729.5] Diagnosis: Fatigue[ICD9: 780.79] Chela Crisostomo MD, [facility] CPT-4: 39576 08/20/2013 23615 EST. PATIENT, LEVEL II Diagnosis: BACKACHE[ICD9: 724.5] Diagnosis: Cervicalgia[ICD9: 723.1] Diagnosis: Spasm of muscle[ICD9: 728.85] Diagnosis: Musculoskeletal disorder and symptoms referable to neck[ICD9: 723.9] Chela Crisostomo MD, [facility] CPT-4: 73306 07/06/2013 55485 EST. PATIENT, LEVEL IV Diagnosis: Health examination of defined subpopulation[ICD9: V70.5] Diagnosis: ESSENTIAL HYPERTENSION[SNOMED: 79736523] Chela Crisostomo MD, [facility] CPT-4: 88401 04/30/2013 ([id number]) 04882 EST. PATIENT, LEVEL III Diagnosis: Diarrhea[ICD9: 787.91] Diagnosis: ALLERGIC RHINITIS[ICD9: 477.9] Paty Crisostomo MD, [facility] CPT- 4: 82759 12/29/2012 ([id number]) 65320 EST. PATIENT, LEVEL III Diagnosis: Unspecified deficiency anemia[ICD9: 281.9] Diagnosis: Abnormal thyroid blood test[ICD9: 794.5] Diagnosis: Abnormal thyroid exam[ICD9: 246.9] Diagnosis: Thinning hair[ICD9: 704.00] Paty Crisostomo MD, [facility] CPT- 4: 12981 10/26/2012 ([id number]) 33093 EST. PATIENT, LEVEL III Diagnosis: ESSENTIAL HYPERTENSION[SNOMED: 58740399] Diagnosis: EDEMA[ICD9: 782.3] Paty Crisostomo MD, [facility] CPT-4: 90748 07/12/2012 ([id number]) 66163 EST. PATIENT, LEVEL IV Diagnosis: ESSENTIAL HYPERTENSION[SNOMED: 27201600] Diagnosis: EDEMA[ICD9: 782.3] Diagnosis: VAC STREP PNEUMONIAE-FLU[ICD9: V06.6] Chela Crisostomo MD, [facility] CPT-4: 89186 06/28/2012 ([id number]) 27484 EST. PATIENT, LEVEL III Diagnosis: ESSENTIAL HYPERTENSION[SNOMED: 53009130] Paty Crisostomo MD, [facility] CPT-4: 46666 05/24/2012 ([id number]) 24759 EST. PATIENT, LEVEL IV Diagnosis: ESSENTIAL HYPERTENSION[SNOMED: 84848628] Diagnosis: EDEMA[ICD9: 782.3] Diagnosis: Bibasilar crackles[ICD9: 786.7] Paty Crisostomo MD, [facility] CPT- 4: 14798 05/09/2012 29519 EST. PATIENT, LEVEL IV Diagnosis: Acute pharyngitis[ICD9: 462] Diagnosis: Diarrhea[ICD9: 787.91] Chela Crisostomo MD, [facility] CPT-4: 20349 01/31/2012 67060 EST. PATIENT, LEVEL IV Diagnosis: Diarrhea[ICD9: 787.91] Diagnosis: Urinary tract infection[ICD9: 599.0] Diagnosis: ESSENTIAL HYPERTENSION[SNOMED: 85274373] Chela Crisostomo MD, [facility] CPT-4: 24727 12/29/2011 89329 EST. PATIENT, LEVEL IV Diagnosis: Abnormal bruising[ICD9: 782.9] Diagnosis: NSAID long-term use[ICD9: V58.64] Diagnosis: ESSENTIAL HYPERTENSION[SNOMED: 77550744] Chela Crisostomo MD, [facility] CPT-4: 14352 12/20/2011 56629 EST. PATIENT, LEVEL III Diagnosis: Hip pain, right[ICD9: 719.45] Diagnosis: Fall on same level from slipping, tripping, or stumbling[ICD9: E885.9 ] Diagnosis: ESSENTIAL HYPERTENSION[SNOMED: 40835181] Chela Crisostomo MD, [facility] CPT-4: 00832 08/31/2011 99739 EST. PATIENT, LEVEL III Diagnosis: Back pain[ICD9: 724.5] Diagnosis: Sciatica[ICD9: 724.3] Chela Crisostomo MD, [facility] CPT-4: 05207 08/17/2011 84397 EST. PATIENT, LEVEL IV Diagnosis: ACUTE PYELONEPHRITIS[ICD9: 590.10] Diagnosis: RENAL & URETERAL DIS NOS[ICD9: 593.9] Diagnosis: LUMBAGO[ICD9: 724.2] [facility] CPT-4: 65442 05/21/2011 Plan of Care Planned Activity Notes Codes Status Date Appointment: Nurse Visit 09/20/2017 Appointment: Nurse Visit 09/16/2017 Appointment: Nurse Visit 09/15/2017 [facility]ment[phone] [phone] (15 min) Moderate 09/14/2017 Patient Education: Patient Medication Summary Completed 09/14/2017 Appointment: Nurse Visit 08/15/2017 Appointment: Nurse Visit 08/10/2017 Appointment: Nurse Visit 08/09/2017 Patient Education: Patient Medication Summary Completed 08/09/2017 Appointment: Chela Camara WPtel: [phone] [phone] (10 min) Simple 08/08/2017 Patient Education: Patient Medication Summary Completed 08/08/2017 Appointment: Lab Draw 06/21/2017 Patient Education: Patient Medication Summary Completed 06/21/2017 Appointment: [facility] Cam[phone] [phone] [place] (30 min) Complex 06/10/2017 Patient Education: Patient Medication Summary Completed 06/10/2017 Appointment: Chela Camara WPtel: [phone] (15 min) Moderate 03/04/2017 Patient Education: Patient Medication Summary Completed 03/04/2017 Appointment: Chela Camara WPtel: [phone] [phone] [place] MCR - Annual Wellness Visit 12/17/2016 Patient Education: Patient Medication Summary Completed 12/17/2016 Appointment: Chela Camara WPtel: [phone] [phone] [place] (30 min) Complex 11/25/2016 Patient Education: Patient Medication Summary Completed 11/25/2016 Appointment: Chela Camara WPtel: [phone] [phone] [place] (30 min) Complex 11/18/2016 Patient Education: Patient Medication Summary Completed 11/18/2016 Appointment: Chela Camara WPtel: [phone] [place] (30 min) Complex 11/11/2016 Patient Education: Patient Medication Summary Completed 11/11/2016 Appointment: Injection 09/27/2016 Patient Education: Patient Medication Summary Completed 09/27/2016 Appointment: Chela Camara WPtel: [phone] [place] (15 min) Moderate 06/21/2016 Patient Education: Patient Medication Summary Completed 06/21/2016 Care Plan: PAP Pending 06/21/2016 Appointment: Chela Camara WPtel: [phone] [place] (30 min) Complex 05/20/2016 Patient Education: Patient Medication Summary Completed 05/20/2016 Care Plan: SCREENINGMAMMOGRAPHYDIGITAL LOINC : 24302-2 Pending 05/20/2016 Appointment: Chela Camara WPtel: [phone] [place] (15 min) Moderate 01/26/2016 Patient Education: Patient Medication Summary Completed 01/26/2016 Care Plan: Referral Order SNOMED-CT : [id number] Ordered 11/19/2015 Appointment: (15 min) Moderate 11/12/2015 Patient Education: Patient Medication Summary Completed 11/12/2015 Appointment: (15 min) Moderate 09/29/2015 Patient Education: Patient Medication Summary Completed 09/29/2015 Patient Education: Hypertension Completed 09/29/2015 Appointment: [facility] Cam[phone] [phone] [place] (30 min) Complex 08/22/2015 Patient Education: Patient Medication Summary Completed 08/22/2015 Patient Education: Hypertension Completed 08/22/2015 Appointment: (30 min) Complex 07/21/2015 Patient Education: Patient Medication Summary Completed 07/21/2015 Patient Education: Hypertension Completed 07/21/2015 Appointment: (30 min) Complex 05/20/2015 Patient Education: Patient Medication Summary Completed 05/20/2015 Appointment: Chela Camara WPtel: [phone] Follow up 01/24/2015 Patient Education: Patient Medication Summary Completed 01/24/2015 Patient Education: Hypertension Completed 01/24/2015 Appointment: Paty Crisostomo WPtel: [facility] [facility] 12/23/2014 Patient Education: Patient Medication Summary Completed 12/23/2014 Patient Education: Hypertension Completed 12/23/2014 Appointment: aPty Crisostomo WPtel: [facility] Follow up 12/10/2014 Appointment: [facility]el[facility] [facility] 10/08/2014 Patient Education: Patient Medication Summary Completed 10/08/2014 Patient Education: Hypertension Completed 10/08/2014 Care Plan: Referral Order SNOMED-CT : [id number] Ordered 10/08/2014 Patient Education: Patient Medication Summary Completed 09/24/2014 Patient Education: Hypertension Completed 09/24/2014 Patient Education: Patient Medication Summary Completed 09/05/2014 Patient Education: Patient Medication Summary Completed 07/22/2014 Appointment: Paty Crisostomo [facility]Ptel[facility] [facility] 06/14/2014 Patient Education: Patient Medication Summary Completed 06/14/2014 Patient Education: Patient Medication Summary Completed 06/13/2014 Appointment: Chela Camara WPtel: [phone] [facility] 01/11/2014 Patient Education: Patient Medication Summary Completed 01/11/2014 Patient Education: Patient Medication Summary Completed 01/07/2014 Appointment: Chela Camaratel: [phone] S[place] 10/30/2013 Patient Education: Patient Medication Summary Completed 10/30/2013 Patient Education: Patient Medication Summary Completed 09/25/2013 Patient Education: Hypertension Completed 09/25/2013 Appointment: Chela Camara WPtel: [address] [place], [place] [phone] Other 08/20/2013 Patient Education: Patient Medication Summary Completed 08/20/2013 Patient Education: Hypertension Completed 08/20/2013 Appointment: Chela Camara WPtel: [address] [place], [place] [phone] Other 07/06/2013 Patient Education: Patient Medication Summary Completed 07/06/2013 Appointment: Chela Camara WPtel: [address] [place], [place] [phone] Other 04/30/2013 Patient Education: Patient Medication Summary Completed 04/30/2013 Patient Education: Hypertension Completed 04/30/2013 Patient Education: Patient Medication Summary Completed 12/29/2012 Appointment: Paty Crisostomo WPtel: [address] [place] [address] Other 10/26/2012 Patient Education: Patient Medication Summary Completed 10/26/2012 Appointment: Paty Crisostomo WPtel: [address] [place] [address] Follow up 07/12/2012 Patient Education: Patient Medication Summary Completed 07/12/2012 Patient Education: High Blood Pressure: Essential Hypertension Completed 2011 Appointment: Paty Crisostomo WPtel: [address] [place] [address] Follow up 07/03/2012 Appointment: Chela Camara WPtel: [address] [place], [place] [phone] Other 06/28/2012 Patient Education: Patient Medication Summary Completed 06/28/2012 Patient Education: High Blood Pressure: Essential Hypertension Completed 2011 Appointment: Chela Camara WPtel: [phone] Follow up 05/24/2012 Patient Education: Patient Medication Summary Completed 05/24/2012 Patient Education: High Blood Pressure: Essential Hypertension Completed 2011 Appointment: Chela Camara WPtel: [address] [place], [place] [phone] Other 05/09/2012 Patient Education: Patient Medication Summary Completed 05/09/2012 Patient Education: High Blood Pressure: Essential Hypertension Completed 2011 Appointment: Chela Camara WPtel: [address] [place], [place] [phone] [place] Other 01/31/2012 Patient Education: Patient Medication Summary Completed 01/31/2012 Appointment: Chela Camara WPtel: [address] [place], [place] [phone] Other 12/29/2011 Patient Education: Patient Medication Summary Completed 12/29/2011 Patient Education: High Blood Pressure: Essential Hypertension Completed 2011 Appointment: Chela Camara WPtel: [address] [place], [place] [phone] [place] Other 12/20/2011 Patient Education: Patient Medication Summary Completed 12/20/2011 Patient Education: High Blood Pressure: Essential Hypertension Completed 2011 Appointment: Chela Camara WPtel: [address] [place], [place] [phone] Other 08/31/2011 Patient Education: Patient Medication Summary Completed 08/31/2011 Patient Education: High Blood Pressure: Essential Hypertension Completed 2010 Appointment: Chela Camara WPtel: [address] [place], [place] [phone] Other 08/17/2011 Patient Education: Patient Medication Summary Completed 08/17/2011 Patient Education: .Amazing charts Exercise for Sciatica Completed 08/17/2011 Appointment: Paty Crisostomo WPtel: [address] [place], [place] [phone] Follow up 05/21/2011 Patient Education: Patient Medication Summary Completed 05/21/2011 Referral: Alber Ellison Referral Initiated Referral: Alber Ellison they will make appt Initiated Referral: Vivian Coy Referral Appointment Requested Instructions No Instructions
--- OUTSIDE RECORDS SUMMARY | 2017-11-27 08:07 | XMS REPORT | CCD ---
Author Author [facility] Organization [facility] Address [address] [place] [address] Phone Care Team Providers Care Incident Engineer Name Role Phone PP Unavailable CCM Unavailable Summary Purpose Interface Exchange Insurance Providers Payer name Policy type / Coverage type Covered libertarian ID Effective Begin Date Effective End Date WPS Medicare Part B [id number] 2014 Unknown [employer] [id number] 2014 Unknown Family history Mother Diagnosis Age At Onset No Family Disease Entered N/A Father Diagnosis Age At Onset No Family Disease Entered N/A Social History Social History Element Codes Description Effective Dates Marital status Unknown 08/18/2011 Employment Unknown 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 08/18/[address]: 078124747 Nonsmoker 08/18/[address]: 876524 Currently drinks alcohol 08/18/2011 Frequency of drinks SNOMED CT: 784686568 Drinks rarely rum occasionally 08/18/2011 Allergies, Adverse [...] Start Date Stop Date Status Fill Instructions Diflucan 150 mg tablet RxNorm: 473559 1 Tablet(s) PO every other day 10/18/2017 10/31/2017 Active diclofenac sodium 75 mg tablet,delayed release RxNorm: 718355 TAKE TWO TABLETS BY MOUTH TWICE A DAY 10/17/2017 02/13/2018 Active diclofenac sodium 75 mg tablet,delayed release RxNorm: 967697 TAKE TWO TABLETS BY MOUTH TWICE A DAY 10/17/2017 10/16/2017 Inactive hydrocodone 10 mg-acetaminophen 325 mg tablet RxNorm: 120675 1 Tablet(s) PO Q4 PRN TAKE ONE TABLET BY MOUTH EVERY 4 HOURS NEEDED FOR PAIN 09/20/2017 10/19/2017 Active amlodipine 5 mg tablet RxNorm: 763486 TAKE ONE TABLET BY MOUTH DAILY 09/20/2017 03/18/2018 Active mupirocin 2 % topical ointment RxNorm: 182285 1 Application TOP BID 09/16/2017 No Stop Date Active ceftriaxone 500 mg solution for injection RxNorm: 1215247 1 Gram(s) Inj 09/14/2017 09/14/2017 Inactive Cymbalta 30 mg capsule,delayed release RxNorm: 628013 TAKE ONE CAPSULE BY MOUTH DAILY 08/15/2017 11/07/2018 Active clindamycin 300 mg capsule RxNorm: 629333 1 Capsule(s) PO TID 08/10/2017 08/16/2017 Inactive clindamycin 300 mg capsule RxNorm: 044668 1 Capsule(s) PO TID 08/10/2017 08/09/2017 Inactive ceftriaxone 500 mg solution for injection RxNorm: 1213881 Inj 08/09/2017 08/09/2017 Inactive Bactrim DS 800 mg-160 mg tablet RxNorm: 608226 1 Tablet(s) PO BID 08/09/2017 08/15/2017 Inactive ER CHANGED BASED ON CULTURE REPORT trazodone 50 mg tablet RxNorm: 046547 1.5 Tablet(s) PO QHS 02/03/2018 Active Requip 0.5 mg tablet RxNorm: 054204 1 Tablet(s) PO QHS TAKE ONE TABLET BY MOUTH DAILY 08/08/2017 02/03/2018 Active ceftriaxone 500 mg solution for injection RxNorm: 9917613 1 Milliliter(s) Inj 08/08/2017 08/08/2017 Inactive hydrocodone 10 mg-acetaminophen 325 mg tablet RxNorm: 971311 1 Tablet(s) PO Q4 PRN TAKE ONE TABLET BY MOUTH EVERY 4 HOURS NEEDED FOR PAIN 08/08/2017 09/06/2017 Inactive Phenergan-Codeine 6.25 mg-10 mg/5 mL syrup RxNorm: 888955 5 Milliliter(s) PO Q6 as needed cough 07/20/2017 No Stop Date Active trazodone 50 mg tablet RxNorm: 273964 1/2-1 Tablet(s) PO QHS 08/07/2017 Inactive 1/2 TO 1 tablet, NOT 1.5 tablet diclofenac sodium 75 mg tablet,delayed release RxNorm: 392840 TAKE TWO TABLETS BY MOUTH TWICE A DAY 06/28/2017 08/26/2017 Inactive Voltaren 1 % topical gel RxNorm: 122033 APPLY TOPICALLY FOUR TIMES A DAY 06/24/2017 06/18/2018 Active prednisone 20 mg tablet RxNorm: 936215 2 Tablet(s) PO daily 11/201606/20/2017 Inactive ketoconazole 2 % topical cream RxNorm: 648089 1 Application TOP BID 06/21/2017 06/30/2017 Inactive right neck and groin ketoconazole 2 % topical cream RxNorm: 533309 1 Application TOP BID 06/21/2017 06/20/2017 Inactive right neck and groin hydrocodone 10 mg-acetaminophen 325 mg tablet RxNorm: 558787 1 Tablet(s) PO Q4 PRN TAKE ONE TABLET BY MOUTH EVERY 4 HOURS NEEDED FOR PAIN 06/21/2017 07/20/2017 Inactive prednisone 20 mg tablet RxNorm: 496249 2 Tablet(s) PO daily 11/201606/25/2017 Inactive Augmentin 500 mg-125 mg tablet RxNorm: 098147 1 Tablet(s) PO TID 06/13/2017 06/12/2017 Inactive take probiotice BID x7 Augmentin 500 mg-125 mg tablet RxNorm: 545149 1 Tablet(s) PO TID 06/13/2017 06/19/2017 Inactive take probiotice BID x7 triamcinolone acetonide 0.5 % topical cream RxNorm: 2943738 1 Application TOP BID 06/10/2017 06/19/2017 Inactive trazodone 50 mg tablet RxNorm: 637888 1/2-1 Tablet(s) PO QHS 07/13/2017 Inactive hydrocodone 10 mg-acetaminophen 325 mg tablet RxNorm: 961905 1 Tablet(s) PO Q4 PRN TAKE ONE TABLET BY MOUTH EVERY 4 HOURS NEEDED FOR PAIN 04/08/2017 05/07/2017 Inactive Benicar 40 mg tablet RxNorm: 259207 TAKE ONE TABLET BY MOUTH DAILY 03/16/2017 12/10/2017 Active acyclovir 800 mg tablet RxNorm: 797809 TAKE ONE TABLET BY MOUTH FOUR TIMES A DAY 03/16/2017 03/25/2017 Inactive Bactrim DS 800 mg-160 mg tablet RxNorm: 724282 1 Tablet(s) PO BID 03/07/2017 03/13/2017 Inactive Bactrim DS 800 mg-160 mg tablet RxNorm: 248167 1 Tablet(s) PO BID 03/07/2017 03/06/2017 Inactive mupirocin 2 % topical ointment RxNorm: 148518 1 Application TOP BID 03/07/2017 03/06/2017 Inactive mupirocin 2 % topical ointment RxNorm: 000789 1 Application TOP BID 03/07/2017 03/16/2017 Inactive acyclovir 800 mg tablet RxNorm: 437966 1 Tablet(s) PO QID 03/0403/13/2017 Inactive Keflex 500 mg capsule RxNorm: 497940 1 Capsule(s) PO TID 201603/06/2017 Inactive amlodipine 5 mg tablet RxNorm: 507710 TAKE ONE TABLET BY MOUTH DAILY 02/22/2017 08/20/2017 Inactive gabapentin 100 mg capsule RxNorm: 311968 TAKE TWO CAPSULES BY MOUTH EVERY MORNING AND TAKE THREE CAPSULES BY MOUTH EVERY EVENING NEEDED 02/01/2018 Active Macrodantin 50 mg capsule RxNorm: 959490 TAKE ONE CAPSULE BY MOUTH DAILY 02/07/2017 02/01/2018 Active Cymbalta 30 mg capsule,delayed release RxNorm: 333810 TAKE ONE CAPSULE BY MOUTH DAILY 02/07/2017 08/05/2017 Inactive Requip 0.5 mg tablet RxNorm: 346092 TAKE ONE TABLET BY MOUTH DAILY 01/21/2017 02/17/2017 Inactive estradiol 0.5 mg tablet RxNorm: 740938 Tablet(s) TAKE ONE-HALF TABLET BY MOUTH TWO TIMES A DAY 01/18/2017 01/12/2018 Active fenofibrate nanocrystallized 145 mg tablet RxNorm: 913160 TAKE ONE TABLET BY MOUTH DAILY 01/18/2017 01/12/2018 Active Zetia 10 mg tablet RxNorm: 359065 TAKE ONE TABLET BY MOUTH DAILY 01/18/2017 01/12/2018 Active Zetia 10 mg tablet RxNorm: 479482 TAKE ONE TABLET BY MOUTH DAILY 01/18/2017 01/17/2017 Inactive hyoscyamine ER 0.375 mg tablet,extended release,12 hr RxNorm: 4178587 TAKE ONE TABLET BY MOUTH TWICE A DAY 01/10/2017 Inactive Flonase 50 mcg/actuation nasal spray,suspension RxNorm: 1177962 1 Gerlach NASAL each nare daily 12/17/2016 04/15/2017 Inactive [SAVINGS FOR UNINSURED PATIENTS -- BIN:560462, PCN: ASPROD1, Group: [id number], ID# [id number], Process claim through [employer], for questions: . THIS IS NOT INSURANCE.] Voltaren 1 % topical gel RxNorm: 413554 APPLY TOPICALLY FOUR TIMES A DAY 12/17/2016 03/26/2017 Inactive hydrocodone 10 mg-acetaminophen 325 mg tablet RxNorm: 072843 1 Tablet(s) PO Q4 PRN TAKE ONE TABLET BY MOUTH EVERY 4 HOURS NEEDED FOR PAIN 12/17/2016 01/15/2017 Inactive (Appended: Controlled substance eRx refill - RxReferenceNumber: [id number]) diclofenac sodium 75 mg tablet,delayed release RxNorm: 520734 TAKE TWO TABLETS BY MOUTH TWICE A DAY 11/22/2016 05/20/2017 Inactive Cymbalta 30 mg capsule,delayed release RxNorm: 500948 TAKE ONE CAPSULE BY MOUTH DAILY 11/22/2016 02/06/2017 Inactive albuterol sulfate 2.5 mg/0.5 mL solution for nebulization RxNorm: 133761 3 Milliliter(s) INH Q4 PRN 11/11/2016 No Stop Date Active Levaquin 500 mg tablet RxNorm: 594426 1 Tablet(s) PO daily 11/15/2016 Inactive Zetia 10 mg tablet RxNorm: 465265 TAKE ONE TABLET BY MOUTH DAILY 10/21/2016 10/27/2016 Inactive fenofibrate nanocrystallized 145 mg tablet RxNorm: 157071 TAKE ONE TABLET BY MOUTH DAILY 10/21/2016 01/17/2017 Inactive estradiol 0.5 mg tablet RxNorm: 094343 TAKE ONE-HALF TABLET BY MOUTH TWO TIMES A DAY 10/20/2016 01/17/2017 Inactive Kenalog 40 mg/mL suspension for injection RxNorm: 0361452 Milliliter(s) Inj 09/27/2016 09/27/2016 Inactive hydrocodone 10 mg-acetaminophen 325 mg tablet RxNorm: 272779 1 Tablet(s) PO Q4 PRN TAKE ONE TABLET BY MOUTH EVERY 4 HOURS NEEDED FOR PAIN 09/21/2016 10/20/2016 Inactive (Appended: Controlled substance eRx refill - RxReferenceNumber: [id number]) Flonase 50 mcg/actuation nasal spray,suspension RxNorm: 2039683 1 Gerlach NASAL each nare daily 09/03/2016 12/16/2016 Inactive [SAVINGS FOR UNINSURED PATIENTS -- BIN:826646, PCN: ASPROD1, Group: AM08, ID# [id number], Process claim through [employer], for questions: . THIS IS NOT INSURANCE.] amlodipine 5 mg tablet RxNorm: 608502 TAKE ONE TABLET BY MOUTH DAILY 08/19/2016 02/14/2017 Inactive Cymbalta 30 mg capsule,delayed release RxNorm: 289970 TAKE ONE CAPSULE BY MOUTH DAILY 08/17/2016 11/21/2016 Inactive Requip 0.5 mg tablet RxNorm: 630201 TAKE ONE TABLET BY MOUTH DAILY 07/22/2016 07/31/2016 Inactive scopolamine 1.5 mg transdermal patch (1 mg over 3 days) RxNorm: 559782 2 Patch TD q 3 days 07/09/2016 No Stop Date Active scopolamine 1.5 mg transdermal patch (1 mg over 3 days) RxNorm: 132160 2 Patch TD q 3 days 07/09/2016 07/08/2016 Inactive hydrocodone 10 mg-acetaminophen 325 mg tablet RxNorm: 811138 1 Tablet(s) PO Q4 PRN TAKE ONE TABLET BY MOUTH EVERY 4 HOURS NEEDED FOR PAIN 05/20/2016 06/18/2016 Inactive (Appended: Controlled substance eRx refill - RxReferenceNumber: [id number]) Cymbalta 30 mg capsule,delayed release RxNorm: 494480 1 Capsule(s) PO daily 05/20/2016 05/20/2016 Inactive fenofibrate nanocrystallized 145 mg tablet RxNorm: 178448 1 Tablet(s) PO daily 04/29/2016 10/20/2016 Inactive estradiol 0.5 mg tablet RxNorm: 657427 TAKE ONE-HALF TABLET BY MOUTH TWO TIMES A DAY 04/27/2016 10/19/2016 Inactive Zetia 10 mg tablet RxNorm: 858681 TAKE ONE TABLET BY MOUTH DAILY 04/16/2016 10/12/2016 Inactive diclofenac sodium 75 mg tablet,delayed release RxNorm: 470135 2 Tablet(s) PO BID 03/25/2016 07/22/2016 Inactive Benicar 40 mg tablet RxNorm: 172370 1 Tablet(s) PO daily 201503/15/2017 Inactive ok to dispense generic if available hydrocodone 10 mg-acetaminophen 325 mg tablet RxNorm: 557687 1 Tablet(s) PO Q4 PRN TAKE ONE TABLET BY MOUTH EVERY 4 HOURS NEEDED FOR PAIN 03/25/2016 04/23/2016 Inactive (Appended: Controlled substance eRx refill - RxReferenceNumber: [id number]) amlodipine 5 mg tablet RxNorm: 079070 TAKE ONE TABLET BY MOUTH DAILY 02/09/2016 08/06/2016 Inactive Benicar 40 mg tablet RxNorm: 442042 1 Tablet(s) PO daily 201503/24/2016 Inactive ok to dispense generic if available hydrocodone 10 mg-acetaminophen 325 mg tablet RxNorm: 478516 1 Tablet(s) PO Q4 PRN TAKE ONE TABLET BY MOUTH EVERY 4 HOURS NEEDED FOR PAIN 01/26/2016 03/24/2016 Inactive (Appended: Controlled substance eRx refill - RxReferenceNumber: [id number]) gabapentin 100 mg capsule RxNorm: 064040 TAKE TWO CAPSULES BY MOUTH EVERY MORNING AND TAKE THREE CAPSULES BY MOUTH EVERY EVENING NEEDED 11/201502/06/2017 Inactive Zetia 10 mg tablet RxNorm: 309083 TAKE ONE TABLET BY MOUTH DAILY 01/20/2016 04/15/2016 Inactive hyoscyamine ER 0.375 mg tablet,extended release,12 hr RxNorm: 1618069 TAKE ONE TABLET BY MOUTH TWICE A DAY 12/30/201505/2016 Inactive Voltaren 1 % topical gel RxNorm: 464550 APPLY TOPICALLY FOUR TIMES A DAY 12/09/2015 08/04/2016 Inactive doxycycline hyclate 100 mg capsule RxNorm: 0194837 1 Capsule(s) PO BID 11/12/2015 11/21/2015 Inactive Macrodantin 50 mg capsule RxNorm: 691823 1 Capsule(s) PO daily 11/07/2015 01/29/2017 Inactive [SAVINGS FOR UNINSURED PATIENTS -- BIN:764556, PCN: ASPROD1, Group: [facility], ID# [id number], Process claim through [employer], for questions: [phone]. THIS IS NOT INSURANCE.] Requip 0.5 mg tablet RxNorm: 056794 1 Tablet(s) PO daily TAKE ONE TABLET BY MOUTH DAILY 11/06/2015 07/21/2016 Inactive Mobic 15 mg tablet RxNorm: 323648 TAKE ONE TABLET BY MOUTH EVERY DAY 10/21/2015 01/25/2016 Inactive estradiol 0.5 mg tablet RxNorm: 757697 TAKE ONE-HALF TABLET BY MOUTH TWO TIMES A DAY 10/20/2015 04/16/2016 Inactive hydrocodone 10 mg-acetaminophen 325 mg tablet RxNorm: 610944 1 Tablet(s) PO Q4 PRN TAKE ONE TABLET BY MOUTH EVERY 4 HOURS NEEDED FOR PAIN 09/29/2015 11/27/2015 Inactive (Appended: Controlled substance eRx refill - RxReferenceNumber: [id number]) Benicar 40 mg tablet RxNorm: 156509 1 Tablet(s) PO daily 201501/25/2016 Inactive [SAVINGS FOR NON-COVERED DRUGS -- BIN:878279, PCN: ASPROD1, Group: XXXXX, ID # [id number], Questions: . THIS IS NOT INSURANCE.] Benicar 40 mg tablet RxNorm: 560694 1/2 Tablet(s) PO daily 09/22/2015 Inactive [SAVINGS FOR NON-COVERED DRUGS -- BIN:608101, PCN: ASPROD1, Group: XXXXX, ID# [id number], Questions: . THIS IS NOT INSURANCE.] scopolamine 1.5 mg transdermal patch (1 mg over 3 days) RxNorm: 677822 1 Patch TD q72 hours 09/09/2015 05/18/2016 Inactive scopolamine 1.5 mg transdermal patch (1 mg over 3 days) RxNorm: 996519 1 TD q72 hours 09/09/2015 09/08/2015 Inactive Requip 0.5 mg tablet RxNorm: 079629 1 Tablet(s) PO daily TAKE ONE TABLET BY MOUTH DAILY 08/22/2015 11/05/2015 Inactive hydrocodone 10 mg-acetaminophen 325 mg tablet RxNorm: 016990 1 Tablet(s) PO Q4 PRN TAKE ONE TABLET BY MOUTH EVERY 4 HOURS NEEDED FOR PAIN 08/22/2015 09/28/2015 Inactive (Appended: Controlled substance eRx refill - RxReferenceNumber: [id number]) fenofibrate nanocrystallized 145 mg tablet RxNorm: 651836 1 Tablet(s) PO daily 08/22/2015 02/17/2016 Inactive amlodipine 5 mg tablet RxNorm: 000729 1 Tablet(s) PO daily 12/201402/08/2016 Inactive gabapentin 100 mg capsule RxNorm: 808899 Capsule(s) PO TAKE THREE CAPSULE PO IN THE AM, 1 AT NOON AND 3 PO IN THE PATTIE 07/21/2015 No Stop Date Active [SAVINGS FOR NON-COVERED DRUGS -- BIN:773839, PCN: ASPROD1, Group: XXXXX, ID# [id number], Questions: . THIS IS NOT INSURANCE.] Zetia 10 mg tablet RxNorm: 829205 1 Tablet(s) PO daily 201401/16/2016 Inactive hydrocodone 10 mg-acetaminophen 325 mg tablet RxNorm: 821868 1 Tablet(s) PO Q4 PRN TAKE ONE TABLET BY MOUTH EVERY 4 HOURS NEEDED FOR PAIN 07/21/2015 08/21/2015 Inactive (Appended: Controlled substance eRx refill - RxReferenceNumber: [id number]) Requip 0.5 mg tablet RxNorm: 233148 TAKE ONE TABLET BY MOUTH DAILY 06/24/2015 08/21/2015 Inactive Benicar 40 mg tablet RxNorm: 894276 1/2 Tablet(s) PO daily 11/201409/14/2015 Inactive [SAVINGS FOR NON-COVERED DRUGS -- BIN:194707, PCN: ASPROD1, Group: XXXXX, ID# [id number], Questions: . THIS IS NOT INSURANCE.] hydrocodone 10 mg-acetaminophen 325 mg tablet RxNorm: 897118 1 Tablet(s) PO Q4 PRN TAKE ONE TABLET BY MOUTH EVERY 4 HOURS NEEDED FOR PAIN 04/28/2015 06/26/2015 Inactive (Appended: Controlled substance eRx refill - RxReferenceNumber: [id number]) estradiol 0.5 mg tablet RxNorm: 154314 TAKE ONE-HALF TABLET BY MOUTH TWO TIMES A DAY 04/21/2015 10/17/2015 Inactive Mobic 15 mg tablet RxNorm: 504075 TAKE ONE TABLET BY MOUTH EVERY DAY 03/27/2015 09/22/2015 Inactive hydrochlorothiazide 25 mg tablet RxNorm: 502159 1 Tablet(s) PO daily 03/10/2015 03/09/2015 Inactive hydrochlorothiazide 25 mg tablet RxNorm: 920209 1 Tablet(s) PO daily 03/10/2015 03/23/2015 Inactive hydrocodone 10 mg-acetaminophen 325 mg tablet RxNorm: 404521 1 Tablet(s) PO Q4 PRN TAKE ONE TABLET BY MOUTH EVERY 4 HOURS NEEDED FOR PAIN 01/24/2015 03/24/2015 Inactive (Appended: Controlled substance eRx refill - RxReferenceNumber: [id number]) gabapentin 100 mg capsule RxNorm: 644114 Capsule(s) PO TAKE TWO CAPSULE PO IN THE AM AND 3 PO IN THE PATTIE PRN 01/17/201509/2014 Inactive [SAVINGS FOR NON-COVERED DRUGS -- BIN:345834, PCN: ASPROD1, Group: XXXXX, ID# [id number], Questions: [phone]. THIS IS NOT INSURANCE.] Requip 0.5 mg tablet RxNorm: 745245 TAKE ONE TABLET BY MOUTH EVERY DAY 01/16/2015 05/15/2015 Inactive Requip 0.5 mg tablet RxNorm: 980320 TAKE ONE TABLET BY MOUTH EVERY DAY 01/16/2015 01/15/2015 Inactive Requip 0.5 mg tablet RxNorm: 135157 TAKE ONE TABLET BY MOUTH EVERY DAY 01/16/2015 01/15/2015 Inactive estradiol 0.5 mg tablet RxNorm: 944793 TAKE ONE-HALF TABLET BY MOUTH TWO TIMES A DAY 01/14/2015 04/13/2015 Inactive Benicar 40 mg tablet RxNorm: 305561 1/2 Tablet(s) PO daily 02/201505/21/2015 Inactive [SAVINGS FOR NON-COVERED DRUGS -- BIN:305494, PCN: ASPROD1, Group: XXXXX, ID# [id number], Questions: . THIS IS NOT INSURANCE.] Cymbalta 30 mg capsule,delayed release RxNorm: 157877 1 Capsule(s) PO daily 12/23/2014 05/19/2016 Inactive [SAVINGS FOR NON-COVERED DRUGS -- BIN:689333, PCN: ASPROD1, Group: XXXXX, ID# [id number], Questions: . THIS IS NOT INSURANCE.] Benicar 40 mg tablet RxNorm: 382218 1 Tablet(s) PO daily 201412/22/2014 Inactive [SAVINGS FOR UNINSURED PATIENTS -- BIN:778495, PCN: ASPROD1, Group: AME08, ID # [id number], Process claim through [employer], for questions: . THIS IS NOT INSURANCE.] hydrocodone 10 mg-acetaminophen 325 mg tablet RxNorm: 685288 Tablet(s) PO TAKE ONE TABLET BY MOUTH EVERY 4 HOURS NEEDED FOR PAIN 201401/23/2015 Inactive (Appended: Controlled substance eRx refill - RxReferenceNumber: [id number]) Flonase 50 mcg/actuation nasal spray,suspension RxNorm: 169285 1 Gerlach NASAL each nare daily 11/04/2014 11/03/2014 Inactive Keflex 500 mg capsule RxNorm: 780064 1 Capsule(s) PO QID 201411/03/2014 Inactive take probiotic while on ABT Keflex 500 mg capsule RxNorm: 234541 1 Capsule(s) PO QID 201411/10/2014 Inactive take probiotic while on ABT [SAVINGS FOR UNINSURED PATIENTS -- BIN:205976, PCN: ASPROD1, Group: AME08, ID# [id number], Process claim through [employer], for questions: . THIS IS NOT INSURANCE.] Flonase 50 mcg/actuation nasal spray,suspension RxNorm: 5777352 1 Gerlach NASAL each nare daily 11/04/2014 01/02/2015 Inactive [SAVINGS FOR UNINSURED PATIENTS -- BIN:464492, PCN: ASPROD1, Group: AME08, ID# [id number], Process claim through [employer], for questions: . THIS IS NOT INSURANCE.] Benicar 40 mg tablet RxNorm: 325836 1 Tablet(s) PO daily 201411/05/2014 Inactive [SAVINGS FOR UNINSURED PATIENTS -- BIN:187502, PCN: ASPROD1, Group: AME08, ID # [id number], Process claim through [employer], for questions: . THIS IS NOT INSURANCE.] Benicar 40 mg tablet RxNorm: 630934 TAKE ONE TABLET BY MOUTH DAILY 10/28/2014 01/25/2015 Inactive hyoscyamine ER 0.375 mg tablet,extended release,12 hr RxNorm: 1480959 1 Tablet(s) PO BID 10/08/2014 12/29/2015 Inactive [SAVINGS FOR UNINSURED PATIENTS -- BIN:114579 , PCN: ASPROD1, Group: AME08, ID# [id number], Process claim through [employer], for questions: . THIS IS NOT INSURANCE.] Macrodantin 50 mg capsule RxNorm: 528488 1 Capsule(s) PO daily 10/08/2014 11/06/2015 Inactive [SAVINGS FOR UNINSURED PATIENTS -- BIN:468304, PCN: ASPROD1, Group: AME08, ID# [id number], Process claim through [employer], for questions: [phone]. THIS IS NOT INSURANCE.] Benicar 40 mg tablet RxNorm: 247209 1 Tablet(s) PO daily 201409/29/2014 Inactive Benicar 40 mg tablet RxNorm: 018077 1 Tablet(s) PO daily 201410/27/2014 Inactive [SAVINGS FOR UNINSURED PATIENTS -- BIN:979670, PCN: ASPROD1, Group: AME08, ID # [id number], Process claim through [employer], for questions: . THIS IS NOT INSURANCE.] Cipro 500 mg tablet RxNorm: 082302 1 Tablet(s) PO BID 201410/06/2014 Inactive [SAVINGS FOR UNINSURED PATIENTS -- BIN:253447, PCN: ASPROD1, Group: AME08, ID # [id number], Process claim through [employer], for questions: . THIS IS NOT INSURANCE.] Flagyl 500 mg tablet RxNorm: 734206 1 Tablet(s) PO TID 201410/06/2014 Inactive [SAVINGS FOR UNINSURED PATIENTS -- BIN:672294, PCN: ASPROD1, Group: AME08, ID # [id number], Process claim through [employer], for questions: . THIS IS NOT INSURANCE.] estradiol 0.5 mg tablet RxNorm: 650428 1/2 Tablet(s) PO BID 02/201512/22/2014 Inactive [SAVINGS FOR UNINSURED PATIENTS -- BIN:080851, PCN: ASPROD1, Group: AME08 , ID# [id number], Process claim through [employer], for questions: . THIS IS NOT INSURANCE.] Bystolic 10 mg tablet RxNorm: 384260 1 Tablet(s) PO BID 201410/07/2014 Inactive [SAVINGS FOR UNINSURED PATIENTS -- BIN:809878, PCN: ASPROD1, Group: AME08, ID # [id number], Process claim through [employer], for questions: . THIS IS NOT INSURANCE.] hydrochlorothiazide 25 mg tablet RxNorm: 388689 TAKE ONE TABLET BY MOUTH EVERY DAY 08/19/2014 12/22/2014 Inactive hydrochlorothiazide 25 mg tablet RxNorm: 423226 1 Tablet(s) PO daily 08/19/2014 11/26/2014 Inactive [SAVINGS FOR UNINSURED PATIENTS -- BIN:109779, PCN: ASPROD1, Group: AME08, ID# [id number], Process claim through [employer], for questions: [phone]. THIS IS NOT INSURANCE.] hydrocodone 10 mg-acetaminophen 325 mg tablet RxNorm: 405311 Tablet(s) PO TAKE ONE TABLET BY MOUTH EVERY 4 HOURS NEEDED FOR PAIN 201311/05/2014 Inactive (Appended: Controlled substance eRx refill - RxReferenceNumber: [id number]) Requip 0.5 mg tablet RxNorm: 183045 TAKE ONE TABLET BY MOUTH EVERY DAY 07/03/2014 11/29/2014 Inactive hydrocodone 10 mg-acetaminophen 325 mg tablet RxNorm: 549468 Tablet(s) PO TAKE ONE TABLET BY MOUTH EVERY 4 HOURS NEEDED FOR PAIN 201307/25/2014 Inactive (Appended: Controlled substance eRx refill - RxReferenceNumber: [id number]) Mobic 15 mg tablet RxNorm: 058164 TAKE ONE TABLET BY MOUTH EVERY DAY 06/11/2014 03/07/2015 Inactive Klor-Con 10 mEq tablet,extended release RxNorm: 752977 TAKE 4 TABLETS ONCE DAILY 03/11/2014 03/23/2015 Inactive hydrocodone 10 mg-acetaminophen 325 mg tablet RxNorm: 456667 Tablet(s) PO TAKE ONE TABLET BY MOUTH EVERY 4 HOURS NEEDED FOR PAIN 201306/12/2014 Inactive (Appended: Controlled substance eRx refill - RxReferenceNumber: [id number]) hydrocodone 10 mg-acetaminophen 325 mg tablet RxNorm: 4103553 1 Tablet(s) PO Q4 PRN 02/05/2014 05/05/2014 Inactive Zithromax Z-Rangel 250 mg tablet RxNorm: 802083 Tablet(s) PO UD No Stop Date Active Flagyl 500 mg tablet RxNorm: 978416 1 Tablet(s) PO TID 201301/16/2014 Inactive Cipro 500 mg tablet RxNorm: 001612 1 Tablet(s) PO BID 201301/16/2014 Inactive Cipro 500 mg tablet RxNorm: 159155 1 Tablet(s) PO BID 201301/06/2014 Inactive Requip 0.5 mg tablet RxNorm: 050487 Tablet(s) PO TAKE ONE TABLET BY MOUTH EVERY DAY 12/25/2013 07/02/2014 Inactive zolpidem 5 mg tablet RxNorm: 218716 Tablet(s) PO TAKE ONE TABLET BY MOUTH AT BEDTIME NEEDED 11/26/2013 No Stop Date Active (Appended: Controlled substance eRx refill - RxReferenceNumber: [id number]) zolpidem 5 mg tablet RxNorm: 587038 1 Tablet(s) PO HS PRN 11/2611/26/2013 Inactive Klor-Con 10 mEq tablet,extended release RxNorm: 569671 Tablet(s) PO TAKE 4 TABLETS ONCE DAILY 11/05/2013 03/10/2014 Inactive Nasonex 50 mcg/actuation Gerlach RxNorm: 415003 2 Gerlach NASAL daily 2 sprays each nare once daily 10/30/2013 No Stop Date Active Requip 0.5 mg tablet RxNorm: 465650 1 Tablet(s) PO daily 201312/24/2013 Inactive Mobic 15 mg tablet RxNorm: 583841 1 Tablet(s) PO daily 201302/26/2014 Inactive Voltaren 1 % topical gel RxNorm: 533562 1 Application TOP QID 10/30/2013 11/23/2014 Inactive ketorolac 60 mg/2 mL intramuscular solution RxNorm: 244411 2 Milliliter(s) IM 10/30/2013 10/30/2013 Inactive nystatin 100,000 unit/gram topical powder RxNorm: 140832 1 Application TOP BID 10/30/2013 11/12/2013 Inactive Flagyl 500 mg tablet RxNorm: 257545 1 Tablet(s) PO TID 201311/08/2013 Inactive promethazine 25 mg/mL injection solution RxNorm: 972016 1 Milliliter(s) Inj 10/30/2013 10/30/2013 Inactive Diflucan 150 mg tablet RxNorm: 771183 1 Tablet(s) PO daily 10/10/2013 Inactive Diflucan 150 mg tablet RxNorm: 472417 1 Tablet(s) PO daily 10/03/2013 Inactive metformin 500 mg tablet RxNorm: 756676 1/2 Tablet(s) PO QHS 03/201410/30/2013 Inactive nystatin 100,000 unit/gram topical powder RxNorm: 036807 1 Application TOP BID 09/25/2013 10/08/2013 Inactive Bystolic 5 mg tablet RxNorm: 862897 Tablet(s) PO 09/24/2013 09/18/2014 Inactive 2 q am (10mg)1 q pattie (5mg ) Zithromax Z-Rangel 250 mg tablet RxNorm: 041367 Tablet(s) PO UD No Stop Date Active Flexeril 5 mg tablet RxNorm: 254110 1 Tablet(s) PO Q8 PRN TAKE ONE TABLET BY MOUTH EVERY 8 HOURS NEEDED 09/10/2013 No Stop Date Active hydrocodone 10 mg-acetaminophen 325 mg tablet RxNorm: 667727 1 Tablet(s) PO Q4 PRN 09/10/2013 02/05/2014 Inactive Macrobid 100 mg capsule RxNorm: 166187 1 Capsule(s) PO BID 09/19/2013 Inactive zolpidem 5 mg tablet RxNorm: 511984 1 Tablet(s) PO HS PRN 08/2411/21/2013 Inactive simvastatin 20 mg tablet RxNorm: 869043 1 Tablet(s) PO QHS TAKE ONE TABLET BY MOUTH AT BEDTIME 08/24/2013 08/18/2014 Inactive Requip 0.5 mg tablet RxNorm: 843019 1/2 Tablet(s) PO daily 1/2 tab PO qhs x 1 week , then increase to full tablet PO qhs 08/23/2013 08/22/2013 Inactive iron 325 mg (65 mg iron) tablet RxNorm: 691511 1 Tablet(s) PO Mon Wed Frid take with orange juice 08/23/2013 01/19/2014 Inactive iron 325 mg (65 mg iron) tablet RxNorm: 457464 1 Tablet(s) PO Mon Wed Frid take with orange juice 08/23/2013 08/22/2013 Inactive Requip 0.5 mg tablet RxNorm: 446010 1/2 Tablet(s) PO daily 1/2 tab PO qhs x 1 week , then increase to full tablet PO qhs 08/23/2013 10/21/2013 Inactive hydrochlorothiazide 25 mg tablet RxNorm: 513653 1 Tablet(s) PO daily 08/02/2013 04/28/2014 Inactive Kenalog 40 mg/mL Susp for Injection RxNorm: 2979478 2 Milliliter(s) Inj 07/06/2013 07/06/2013 Inactive Zithromax Z-Rangel 250 mg tablet RxNorm: 969117 Tablet(s) PO UD No Stop Date Active zolpidem 5 mg tablet RxNorm: 179089 1 Tablet(s) PO HS PRN 05/3108/23/2013 Inactive simvastatin 20 mg tablet RxNorm: 202577 Tablet(s) PO TAKE ONE TABLET BY MOUTH AT BEDTIME 05/17/2013 08/23/2013 Inactive zolpidem 5 mg tablet RxNorm: 077134 1 Tablet(s) PO HS PRN 05/1705/30/2013 Inactive hydrocodone 10 mg-acetaminophen 325 mg tablet RxNorm: 1849962 1 Tablet(s) PO Q4 PRN 05/17/2013 08/14/2013 Inactive zolpidem 5 mg tablet RxNorm: 242134 1 Tablet(s) PO HS PRN 04/0405/03/2013 Inactive hydrocodone 10 mg-acetaminophen 325 mg tablet RxNorm: 3829723 1 Tablet(s) PO Q4 PRN 04/04/2013 05/16/2013 Inactive Voltaren 1 % topical gel RxNorm: 272572 1 Application TOP QID 04/04/2013 10/29/2013 Inactive gabapentin 100 mg capsule RxNorm: 963848 Capsule(s) PO TAKE ONE CAPSULE BY MOUTH TWICE A DAY 03/05/2013 07/21/2014 Inactive zolpidem 5 mg tablet RxNorm: 520298 1 Tablet(s) PO HS PRN 02/0804/03/2013 Inactive Flexeril 5 mg tablet RxNorm: 008990 1 Tablet(s) PO Q8 PRN TAKE ONE TABLET BY MOUTH EVERY 8 HOURS NEEDED 02/07/2013 09/10/2013 Inactive hydrocodone 10 mg-acetaminophen 325 mg tablet RxNorm: 3798386 1 Tablet(s) PO Q4 PRN 02/07/2013 04/03/2013 Inactive Celebrex 200 mg capsule RxNorm: 273560 1 Capsule(s) PO BID TAKE ONE CAPSULE BY MOUTH TWICE A DAY 02/07/2013 10/30/2013 Inactive zolpidem 5 mg tablet RxNorm: 641674 1 Tablet(s) PO HS PRN 01/1102/07/2013 Inactive Flexeril 5 mg tablet RxNorm: 270501 Tablet(s) PO TAKE ONE TABLET BY MOUTH EVERY 8 HOURS NEEDED 01/04/2013 02/06/2013 Inactive hydrocodone 10 mg-acetaminophen 325 mg tablet RxNorm: 3782184 1 Tablet(s) PO Q4 PRN 01/04/2013 02/06/2013 Inactive Flexeril 5 mg tablet RxNorm: 512873 1 Tablet(s) PO Q8 PRN 01/04 No Stop Date Active Nasonex 50 mcg/actuation Gerlach RxNorm: 757016 2 Gerlach NASAL 2 sprays each nare once daily 01/04/2013 10/29/2013 Inactive Klor-Con 10 mEq tablet,extended release RxNorm: 829021 Tablet(s) PO TAKE 4 TABLETS ONCE DAILY 12/18/2012 11/04/2013 Inactive simvastatin 20 mg tablet RxNorm: 992133 Tablet(s) PO TAKE ONE TABLET BY MOUTH AT BEDTIME 12/06/2012 05/16/2013 Inactive gabapentin 100 mg capsule RxNorm: 050626 1 Capsule(s) PO BID 03/03/2013 Inactive gabapentin 100 mg capsule RxNorm: 164215 1 Capsule(s) PO BID 12/03/2012 Inactive amoxicillin 500 mg tablet RxNorm: 294807 1 Tablet(s) PO TID 12/03/2012 Inactive amoxicillin 500 mg tablet RxNorm: 419627 1 Tablet(s) PO TID 12/08/2012 Inactive zolpidem 5 mg tablet RxNorm: 663647 1 Tablet(s) PO HS PRN 11/0801/06/2013 Inactive hydrocodone 10 mg-acetaminophen 325 mg tablet RxNorm: 1254384 1 Tablet(s) PO Q4 PRN 11/08/2012 01/03/2013 Inactive Celebrex 200 mg capsule RxNorm: 742787 Capsule(s) PO TAKE ONE CAPSULE BY MOUTH TWICE A DAY 11/08/2012 02/06/2013 Inactive gabapentin 100 mg capsule RxNorm: 977373 1 Capsule(s) PO BID 11/06/2012 Inactive gabapentin 100 mg capsule RxNorm: 020433 1 Capsule(s) PO BID 12/03/2012 Inactive Bystolic 5 mg tablet RxNorm: 970382 Tablet(s) PO 07/19/2012 07/18/2012 Inactive 2 q am (10mg)1 q pattie (5mg ) Bystolic 5 mg tablet RxNorm: 159933 Tablet(s) PO 07/19/2012 07/13/2013 Inactive 2 q am (10mg)1 q pattie (5mg ) hydrocodone-acetaminophen 10 mg-325 mg tablet RxNorm: 7291589 1 Tablet(s) PO Q4 PRN 07/12/2012 10/09/2012 Inactive hydrochlorothiazide 25 mg tablet RxNorm: 489540 1 Tablet(s) PO daily 07/12/2012 07/06/2013 Inactive Bystolic 10 mg tablet RxNorm: 100756 1 Tablet(s) PO daily 201107/18/2012 Inactive Lasix 20 mg tablet RxNorm: 132456 1 Tablet(s) PO PRN Take an extra potassium when taking lasix 07/12/2012 05/19/2016 Inactive Influenza Virus Vaccine 0.5 mL RxNorm: IM 06/28/2012 06/28/2012 Inactive Pneumovax 23 25 mcg/0.5 mL Injection RxNorm: 023732 Milliliter(s) Inj 06/28/2012 06/28/2012 Inactive Lasix 20 mg tablet RxNorm: 873463 1 Tablet(s) PO PRN Take an extra potassium when taking lasix 06/28/2012 07/11/2012 Inactive Flexeril 5 mg tablet RxNorm: 150523 1 Tablet(s) PO Q8 PRN 06/2009/17/2012 Inactive Flexeril 5 mg tablet RxNorm: 205405 1 Tablet(s) PO Q8 PRN 06/1506/19/2012 Inactive hydrochlorothiazide 25 mg tablet RxNorm: 785887 1 Tablet(s) PO daily 06/08/2012 07/07/2012 Inactive hydrocodone-acetaminophen 5 mg-500 mg capsule RxNorm: 014075 1 Capsule(s) PO Q6 PRN 06/08/2012 06/27/2012 Inactive hydrochlorothiazide 25 mg tablet RxNorm: 639401 1 Tablet(s) PO daily 06/08/2012 06/07/2012 Inactive Bystolic 10 mg tablet RxNorm: 755159 1 Tablet(s) PO daily 201107/11/2012 Inactive Lasix 20 mg tablet RxNorm: 434629 1 Tablet(s) PO PRN Take 1 tab daily x 5 days then daily PRN swelling. Take an extra potassium when taking potassium 05/10/2012 06/27/2012 Inactive hydrocodone-acetaminophen 5 mg-500 mg capsule RxNorm: 163881 1 Capsule(s) PO Q6 PRN 05/09/2012 06/07/2012 Inactive Flexeril 5 mg tablet RxNorm: 793388 1 Tablet(s) PO Q8 PRN 04/0706/14/2012 Inactive hydrocodone-acetaminophen 5 mg-500 mg capsule RxNorm: 735083 1 Capsule(s) PO Q6 PRN 03/30/2012 05/08/2012 Inactive Voltaren 1 % Topical Gel RxNorm: 204593 1 Application TOP QID 03/23/2012 09/18/2012 Inactive Voltaren 1 % Topical Gel RxNorm: 076515 1 Application TOP QID 03/23/2012 03/22/2012 Inactive Celebrex 200 mg capsule RxNorm: 692480 1 Capsule(s) PO BID 12/201111/07/2012 Inactive hydrocodone-acetaminophen 5 mg-500 mg Cap RxNorm: 363415 1 Capsule(s) PO Q6 PRN 02/15/2012 03/29/2012 Inactive hydrochlorothiazide 25 mg Tab RxNorm: 223319 1 Tablet(s) PO daily 02/02/2012 05/24/2012 Inactive Flagyl 500 mg Tab RxNorm: 569517 1 Tablet(s) PO TID 201102/01/2012 Inactive Flagyl 500 mg Tab RxNorm: 020538 1 Tablet(s) PO TID 201105/24/2012 Inactive hydrochlorothiazide 25 mg Tab RxNorm: 393721 1 Tablet(s) PO daily 02/02/2012 02/01/2012 Inactive Diflucan 150 mg Tab RxNorm: 876564 1 Tablet(s) PO daily 201105/24/2012 Inactive simvastatin 20 mg tablet RxNorm: 410566 1 Tablet(s) PO QHS 12/201112/05/2012 Inactive hydrocodone-acetaminophen 5 mg-500 mg Cap RxNorm: 452730 1 Capsule(s) PO Q6 PRN 01/20/2012 02/15/2012 Inactive Flagyl 500 mg Tab RxNorm: 856431 1 Tablet(s) PO TID 201101/04/2012 Inactive Macrobid 100 mg capsule RxNorm: 123166 1 Capsule(s) PO BID 07/201201/07/2012 Inactive lactobacillus acidophilus Chewable Tab RxNorm: 1 Tablet(s) PO BID 12/29/2011 05/24/2012 Inactive hydrocodone-acetaminophen 5 mg-500 mg Cap RxNorm: 179868 1 Capsule(s) PO Q6 PRN 12/27/2011 01/19/2012 Inactive hydrocodone-acetaminophen 5 mg-500 mg Cap RxNorm: 818260 1 Capsule(s) PO Q6 PRN 12/07/2011 12/26/2011 Inactive hydrochlorothiazide 50 mg Tab RxNorm: 869327 1 Tablet(s) PO daily 11/11/2011 05/24/2012 Inactive hydrocodone-acetaminophen 5 mg-500 mg Cap RxNorm: 305380 1 Capsule(s) PO Q6 PRN 10/27/2011 12/06/2011 Inactive Klor-Con 10 mEq tablet,extended release RxNorm: 686644 4 Tablet(s) PO daily 09/28/2011 06/23/2012 Inactive ketorolac 60 mg/2 mL IM RxNorm: 306572 2 Milliliter(s) IM 08/3108/31/2011 Inactive Klor-Con 10 10 mEq Tab RxNorm: 214055 4 Tablet(s) PO daily 04/201109/27/2011 Inactive Kenalog 40 mg/mL Susp for Injection RxNorm: 4591942 1.5 Milliliter(s) Inj 08/18/2011 08/18/2011 Inactive prednisone 10 mg Tab RxNorm: 466069 Tablet(s) PO 08/17/2011 08/22/2011 Inactive 6-5-4 -3-2-1 Celebrex 200 mg Cap RxNorm: 849959 1 Capsule(s) PO BID 201002/20/2012 Inactive simvastatin 20 mg Tab RxNorm: 120668 1 Tablet(s) PO 07/22/2011 01/20/2012 Inactive Rocephin 500 mg Solution for Injection RxNorm: 765016 1 Milliliter(s) Inj as doctor directed 05/21/2011 05/21/2011 Inactive Advair Diskus 250 mcg-50 mcg/dose powder for inhalation RxNorm: 2807019 2 Puff(s) INH BID No Start Date Active Vitamin D-3 Oral RxNorm: Oral No Start Date Active Diflucan 150 mg tablet RxNorm: 337444 1 Tablet(s) PO every other day No Start Date 01/06/2014 Inactive Klor-Con 10 10 mEq Tab RxNorm: 307189 1 Tablet(s) PO daily No Start Date 08/25/2011 Inactive nystatin-triamcinolone 100,000 unit/g-0.1 % Topical Cream RxNorm: 4423015 1 Application TOP TID No Start Date 2012 Inactive Bystolic 10 mg tablet RxNorm: 091363 1 Tablet(s) PO daily No Start Date 2012 Inactive Nasonex 50 mcg/actuation Gerlach RxNorm: 885251 2 Gerlach NASAL 2 sprays each nare once daily No Start Date 01/03/2013 Inactive naproxen 500 mg Tab RxNorm: 446232 1 Tablet(s) PO BID No Start Date 12/28/2011 Inactive mupirocin 2 % topical ointment RxNorm: 147381 1 Application TOP BID No Start Date 09/15/2017 Inactive Lasix 20 mg tablet RxNorm: 119348 1 Tablet(s) PO PRN Take 1 tab daily x 5 days then daily PRN swelling. Take an extra potassium when taking potassium No Start Date 05/09/2012 Inactive Flexeril 5 mg tablet RxNorm: 506825 1 Tablet(s) PO Q8 PRN No Start Date 04/06/2012 Inactive hydrocodone-acetaminophen 5 mg-500 mg Cap RxNorm: 132322 1 Capsule(s) PO Q6 PRN No Start Date 10/26/2011 Inactive Phenergan-Codeine 6.25 mg-10 mg/5 mL syrup RxNorm: 137737 5 Milliliter(s) PO Q6 as needed cough No Start Date 07/19/2017 Inactive diclofenac sodium 75 mg tablet,delayed release RxNorm: 493317 2 Tablet(s) PO BID No Start Date 03/24/2016 Inactive Zithromax Z-Rangel 250 mg tablet RxNorm: 933458 Tablet(s) PO UD No Start Date 03/22/2012 Inactive orphenadrine citrate ER 100 mg Tab RxNorm: 375367 1 Tablet(s) PO BID No Start Date 05/19/2016 Inactive scopolamine 1.5 mg transdermal patch (1 mg over 3 days) RxNorm: 720026 2 Patch TD q 3 days No Start Date 07/08/2016 Inactive Fish Oil 1,000 mg Cap RxNorm: 3 Capsule(s) PO daily No Start Date 04/29/2013 Inactive Macrodantin 50 mg Cap RxNorm: 335753 1 Capsule(s) PO daily No Start Date 10/07/2014 Inactive hydrochlorothiazide 50 mg Tab RxNorm: 990347 1 Tablet(s) PO daily No Start Date 11/10/2011 Inactive Medication Administered Medication Codes Instructions Start Date Status ceftriaxone 500 mg solution for injection RxNorm: 5025155 1Gram 09/14/2017 No longer Active ceftriaxone 500 mg solution for injection RxNorm: 9865665 08/09/2017 No longer Active ceftriaxone 500 mg solution for injection RxNorm: 3876855 1Milliliter 08/08/2017 No longer Active Kenalog 40 mg/mL suspension for injection RxNorm: 4910842 Milliliter 09/27/2016 No longer Active promethazine 25 mg/mL injection solution RxNorm: 525093 1Milliliter 10/30/2013 No longer Active ketorolac 60 mg/2 mL intramuscular solution RxNorm: 947044 2Milliliter 10/30/2013 No longer Active Kenalog 40 mg/mL Susp for Injection RxNorm: 7479690 2Milliliter 07/06/2013 No longer Active Influenza Virus Vaccine 0.5 mL RxNorm: 06/28/2012 No longer Active Pneumovax 23 25 mcg/0.5 mL Injection RxNorm: 737327 Milliliter 06/28/2012 No longer Active ketorolac 60 mg/2 mL IM RxNorm: 070443 2Milliliter 08/31/2011 No longer Active Kenalog 40 mg/mL Susp for Injection RxNorm: 2047287 1.5Milliliter 08/18/2011 No longer Active Rocephin 500 mg Solution for Injection RxNorm: 979171 1Milliliteras doctor directed 05/21/2011 No longer Active [...] Item Code Result Date Urine Culture Ucult Complete NO Growth Day 2 06/23/2017 Urine Culture Ucult Preliminary NO Growth Day 1 06/23/2017 Culture Urine [id number] URINE CULTURE SEE NOTES 06/13/2017 Culture Urine [id number] Continued Results 06/13/2017 Urine Culture Ucult Complete >100,000 col/ml aerobic growth sent to ref lab 06/11/2017 B12 Pzm762 B12 341.00 pg/ml 06/10/2017 Comp Metabolic Bid879 NA 138 mEq/L 06/10/2017 Comp Metabolic Sos609 K 4.4 mEq/L 06/10/2017 Comp Metabolic Jmk862 CL 104 mEq/L 06/10/2017 Comp Metabolic Gxb134 CO2 27.0 mEq/L 06/10/2017 Comp Metabolic Vwd240 ANION GAP 11 06/10/2017 Comp Metabolic Pio812 GLUCOSE 86 mg/dL 06/10/2017 Comp Metabolic Hri554 Creat 1.2 mg/dL 06/10/2017 Comp Metabolic Sgc713 eGFR 49 ml/min/1.73m2 06/10/2017 Comp Metabolic Ttc779 BUN 26 mg/dL 06/10/2017 Comp Metabolic Lan593 B/C Ratio 22.2 Ratio 06/10/2017 Comp Metabolic Tss226 CALCIUM 9.4 mg/dL 06/10/2017 Comp Metabolic Vee724 ALK PHOS 48 U/L 06/10/2017 Comp Metabolic Wbc935 AST(SGOT) 28 U/L 06/10/2017 Comp Metabolic Faf096 ALT(SGPT) 29 U/L 06/10/2017 Comp Metabolic Kgt503 BILI T 0.5 mg/dL 06/10/2017 Comp Metabolic Sxu539 ALBUMIN 4.1 g/dL 06/10/2017 Comp Metabolic Kcj097 TPRO 6.3 g/dL 06/10/2017 Comp Metabolic Eka751 GLOB 2.2 g/dL 06/10/2017 Comp Metabolic Dch279 A/G Ratio 1.9 Ratio 06/10/2017 Comp Metabolic Bqq811 Osmo 280 mOsmo 06/10/2017 Total T3 Ord42 TT3 0.70 ng/ml 06/10/2017 Cbc With Differential Ord2 WBC 5.22 K/ul 06/10/2017 Cbc With Differential Ord2 RBC 3.35 M/ul 06/10/2017 Cbc With Differential Ord2 HGB 11.7 g/dl 06/10/2017 Cbc With Differential Ord2 Neut% 56.1 % 06/10/2017 Cbc With Differential Ord2 HCT 36.0 % 06/10/2017 Cbc With Differential Ord2 MCV 107.5 fl 06/10/2017 Cbc With Differential Ord2 Lymph% 28.4 % 06/10/2017 Cbc With Differential Ord2 [place]% 10.7 % 06/10/2017 Cbc With Differential Ord2 MCH 34.9 pg 06/10/2017 Cbc With Differential Ord2 Eos% 4.4 % 06/10/2017 Cbc With Differential Ord2 MCHC 32.5 pg 06/10/2017 Cbc With Differential Ord2 PLT 358 K/ul 06/10/2017 Cbc With Differential Ord2 Baso% 0.4 % 06/10/2017 Cbc With Differential Ord2 RDW 13.3 % 06/10/2017 Cbc With Differential Ord2 Neut ABS# 2.93 K/ul 06/10/2017 Cbc With Differential Ord2 Lymph ABS# 1.48 K/ul 06/10/2017 Cbc With Differential Ord2 [place] ABS# 0.6 K/ul 06/10/2017 Cbc With Differential Ord2 Eos ABS# 0.2 K/ul 06/10/2017 Cbc With Differential Ord2 Baso ABS# 0.0 K/ul 06/10/2017 Tsh Ord6 hTSH II 0.88 uIU/mL 06/10/2017 Cbc With Differential Ord2 WBC 5.3 K/uL [...] With Differential Ord2 RDW 13.6 % 08/20/2015 Comp Metabolic Ess073 NA 139 mEq/L 08/20/2015 Comp Metabolic Gvw758 K 4.4 mEq/L 08/20/2015 Comp Metabolic Btn198 CL 104 mEq/L 08/20/2015 Comp Metabolic Vgu400 CO2 26.0 mEq/L 08/20/2015 Comp Metabolic Lmc578 ANION GAP 13 08/20/2015 Comp Metabolic Ttx516 GLUCOSE 78 mg/dL 08/20/2015 Comp Metabolic Tpk603 Creat 0.8 mg/dL 08/20/2015 Comp Metabolic Yxj262 eGFR 79 ml/min/1.73m2 08/20/2015 Comp Metabolic Vog331 BUN 21 mg/dL 08/20/2015 Comp Metabolic Liy083 B/C Ratio 27.3 Ratio 08/20/2015 Comp Metabolic Lzc474 CALCIUM 9.5 mg/dL 08/20/2015 Comp Metabolic Nnm964 ALK PHOS 64 U/L 08/20/2015 Comp Metabolic Dvk092 AST(SGOT) 20 U/L 08/20/2015 Comp Metabolic Sye786 ALT(SGPT) 16 U/L 08/20/2015 Comp Metabolic Ecd521 BILI T 0.5 mg/dL 08/20/2015 Comp Metabolic Rij214 ALBUMIN 4.2 g/dL 08/20/2015 Comp Metabolic Esm392 TPRO 7.0 g/dL 08/20/2015 Comp Metabolic Cra852 GLOB 2.8 g/dL 08/20/2015 Comp Metabolic Qcq682 A/G Ratio 1.5 Ratio 08/20/2015 Comp Metabolic Tvc400 Osmo 279 mOsmo 08/20/2015 Metabolic Ord15 NA 134 mEq/L 04/15/2015 [...] Metabolic Ord15 CALCIUM 9.2 mg/dL 04/15/2015 %SAT/TIBC 1616051 TIBC 360 UG/DL 08/22/2013 %SAT/TIBC 9711235 % SATURAT 22 % 08/22/2013 %SAT/TIBC 0271361 UIBC 282 MCG/DL 08/22/2013 IRON TEST [id number] IRON TEST 78 UG/DL 08/22/2013 VIT D TOTL 6920795 VIT D TOTL 74 NG/ML 08/22/2013 CANCEL 8036699 CANCEL FOOTNOTE 08/22/2013 A1C HPLC 1928957 A1C HPLC 85729-7 5.8 % 08/21/2013 CHEM 14 3534797 AST 25 U/L 08/20/2013 CHEM 14 9320422 ALT 32 IU/L 08/20/2013 CHEM 14 0930553 BUN 21 MG/DL 08/20/2013 CHEM 14 3822298 ALBUMIN 4.4 GM/DL 08/20/2013 CHEM 14 3400117 CHLORIDE 105 MMOL/L 08/20/2013 CHEM 14 0552923 BILI TOT 0.5 MG/DL 08/20/2013 CHEM 14 7153345 ALK PHOS 50 U/L 08/20/2013 CHEM 14 4727204 SODIUM 139 MMOL/L 08/20/2013 CHEM 14 4453021 CREATININE 0.76 MG/DL 08/20/2013 CHEM 14 4272692 CALCIUM 9.7 MG/DL 08/20/2013 CHEM 14 6332788 POTASSIUM 3.9 MMOL/L 08/20/2013 CHEM 14 9558808 PROT TOT 7.0 GM/DL 08/20/2013 CHEM 14 6949094 GLUCOSE 135 MG/DL 08/20/2013 CHEM 14 1807457 BICARB 27 MMOL/L 08/20/2013 CHEM 14 9360006 ANION GAP 7 MEQ/L 08/20/2013 GFR CALC 9893757 GFR AA >60 ML/MIN 08/20/2013 GFR CALC 1748368 GFR NON-AA >60 ML/MIN 08/20/2013 TSH 2699943 TSH 0.610 uIU/ML 08/20/2013 CBC 2796256 WBC 6.6 10e9/L 08/20/2013 CBC 6830056 RBC 4.28 10e12/L 08/20/2013 CBC 4304484 HGB 14.1 g/dL 08/20/2013 CBC 0975271 HCT DET 42.7 % 08/20/2013 CBC 6539752 MCV 99.8 fL 08/20/2013 CBC 3064366 MCH 32.9 pg 08/20/2013 CBC 1985937 MCHC 33.0 g/dL 08/20/2013 CBC 2056466 PLT 289 10e9/L 08/20/2013 CBC 4598220 MPV 9.8 fL 08/20/2013 CBC 7965768 AZAEL % 70.3 % 08/20/2013 CBC 2593844 LY % 21.2 % 08/20/2013 CBC 6780510 MON % 7.4 % 08/20/2013 CBC 5109317 EOS % 0.9 % 08/20/2013 CBC 2366486 BASO % 0.2 % 08/20/2013 CBC 1949753 RDW 13.5 % 08/20/2013 CBC 5222360 ABS AZAEL 4.64 10e9/L 08/20/2013 CBC 5068874 ABS LYMPH 1.40 10e9/L 08/20/2013 CBC 2994356 ABS MONO 0.49 10e9/L 08/20/2013 CBC 8162904 ABS EOS 0.06 10e9/L 08/20/2013 CBC 4841235 ABS BASO 0.01 10e9/L 08/20/2013 CBC 7878824 RDW-SD 48.4 fL 08/20/2013 MAGNESIUM 1174537 MAGNESIUM 1.7 MEQ/L 08/20/2013 URINALYSIS NONAUTO W/O SCOPE 36055 Specific Pace 1.015 DateTime(Free Text in Aprima) URINALYSIS NONAUTO W/O SCOPE 26911 PH 6.0 DateTime(Free Text in Aprima) URINALYSIS NONAUTO W/O SCOPE 28218 GLUCOSE NEG DateTime( Free Text in Aprima) URINALYSIS NONAUTO W/O SCOPE 75700 Protein NEG DateTime( Free Text in Aprima) URINALYSIS NONAUTO W/O SCOPE 17436 Blood NEG DateTime(Free Text in Aprima) URINALYSIS NONAUTO W/O SCOPE 72321 Bilirubin NEG DateTime(Free Text in Aprima) URINALYSIS NONAUTO W/O SCOPE 83064 Ketones NEG DateTime( Free Text in Aprima) URINALYSIS NONAUTO W/O SCOPE 89138 Urobilinogen NEG DateTime(Free Text in Aprima) URINALYSIS NONAUTO W/O SCOPE 93359 Nitrite POSITIVE DateTime(Free Text in Aprima) URINALYSIS NONAUTO W/O SCOPE 70225 Leukocytes NEG DateTime(Free Text in Aprima) Review [...] erythematous 11/12/2015 None Full Exam - General 1995 Neurologic cranial nerves Overall: crainial nerves 2 [...] hygiene 05/20/2015 None Full Exam - General 1995 Constitutional general appearance Overall: well developed 01/24/2015 [...] dentition 07/22/2014 None Full Exam - General 1994 Ears/Nose/Throat lips/teeth/gingiva Overall: benign gingiva 07/22/2014 None Full Exam - General 1994 Ears/Nose/Throat lips/teeth/gingiva Overall: no masses 07/22/2014 None [...] 1994 Ears/Nose/Throat oral cavity/pharynx/larynx Overall: no masses 10/30/2013 [...] General 1995 Ears/Nose/Throat lips/teeth/gingiva Overall: benign lips 09/25/2013 None Full Exam - General 1995 Ears/Nose/Throat lips/teeth/gingiva Overall: normal dentition 09/25/2013 None Full Exam - General 1994 Ears/Nose/Throat lips/teeth/gingiva Overall: benign gingiva 09/25/2013 None Full Exam - General 1995 Ears/Nose/Throat lips/teeth/gingiva Overall: no masses 09/25/2013 None Full Exam - General 1995 Ears/Nose/Throat oral cavity/pharynx/larynx Overall: oral mucosa clear 09/25/2013 None Full Exam - General 1995 Ears/Nose/Throat oral cavity/pharynx/larynx Overall: oropharyngeal mucosa clear 09/25/2013 None Full Exam - General 1994 Ears/Nose/Throat oral cavity/pharynx/larynx Overall: no masses 09/25/2013 [...] 08/20/2013 None Full Exam - General 1995 Eyes conjunctiva /eyelids Overall: eyelids normal 08/20/2013 [...] retractions 08/20/2013 None Full Exam - General 1994 Respiratory auscultation Overall: breath sounds clear bilaterally 08/20/2013 None Full Exam - General 1994 Cardiovascular auscultation of heart Overall: regular rate 08/20/2013 None Full Exam - General 1994 Cardiovascular auscultation of heart Overall: normal heart sounds 08/20/2013 None Full Exam - General 1995 Cardiovascular auscultation of heart Overall: no murmurs 08/20/2013 None Full Exam - General 1995 Abdomen abdominal exam Overall: no tenderness 08/20/2013 None Full Exam - General 1995 Abdomen abdominal exam Overall: normal bowel sounds 08/20/2013 None Full Exam - General 1995 Psychiatric orientation/consciousness Overall: oriented to person, place and time 08/20/2013 None Full Exam - General 1995 Lymphatic neck nodes Overall: anterior cervical chain benign 08/20/2013 None Full Exam - General 1995 Lymphatic neck nodes Overall: posterior cervical chain benign 08/20/2013 None Full Exam - General 1995 Musculoskeletal digits and nails Overall: no clubbing 08/20/2013 None Full Exam - General 1995 Musculoskeletal digits and nails Overall: digits benign 08/20/2013 None Full Exam - General 1995 Constitutional general appearance Overall: well developed 07/06/2013 [...] tenderness 04/30/2013 None Full Exam - General 1994 [...] nourished 10/26/2012 None Full Exam - General 1995 [...] clear 07/12/2012 None Full Exam - General 1995 Ears/Nose/Throat oral cavity/pharynx/larynx Overall: oral mucosa clear 07/12/2012 None Full Exam - General 1994 Ears/Nose/Throat oral cavity/pharynx/larynx Overall: oropharyngeal mucosa clear 07/12/2012 None Full Exam - General 1995 Ears/Nose/Throat oral cavity/pharynx/larynx Overall: no masses 07/12/2012 [...] rhythm 06/28/2012 None Full Exam - General 1994 Lymphatic neck nodes Overall: anterior cervical chain benign 06/28/2012 None Full Exam - General 1995 Constitutional general appearance Overall: well developed 05/24/2012 None Full Exam - General 1994 Constitutional general appearance Overall: in no acute distress 05/24/2012 None Full Exam - General 1994 Constitutional general appearance Overall: well nourished 05/24/2012 [...] masses 05/09/2012 None Full Exam - General 1994 [...] time 12/20/2011 None Full Exam - General 1995 Integument inspection of skin Overall: no rash, [...] Procedure Codes Date THER/PROPH/DIAG INJ SC/IM CPT-4: 15380 09/14/2017 ROCEPHIN, PER 250 MG CPT-4: J0696 09/14/2017 THER/PROPH/DIAG INJ SC/IM CPT-4: 66997 08/09/2017 ROCEPHIN, PER 250 MG CPT-4: J0696 08/09/2017 ROCEPHIN, PER 250 MG CPT-4: J0696 08/08/2017 URINALYSIS NONAUTO W/O SCOPE CPT-4: 15008 06/21/2017 URINALYSIS NONAUTO W/O SCOPE CPT-4: 25629 06/10/2017 PPPS, SUBSEQ VISIT CPT -4: G0439 12/17/2016 THER/PROPH/DIAG INJ SC/IM CPT-4: 95870 09/27/2016 TRIAMCINOLONE ACET INJ NOS CPT-4: J3301 09/27/2016 ADMIN INFLUENZA VIRUS VAC CPT-4: G0008 06/21/2016 FLU VACC 4 EMMA 3 YRS PLUS IM Formatting Model/CDA Sections, Assigned to/Kiki Redding SNOMED CT: [id number] CPT-4: 71036Inswhvf 06/21/2016 PNEUMOCOCCAL VACC 13 EMMA IM Formatting Model/CDA Sections, Assigned to/Kiki Redding SNOMED CT: [id number] CPT-4: 12690Saboeph 07/21/2015 IMMUNIZATION ADMIN CPT -4: 81683 07/21/2015 THER/PROPH/DIAG INJ SC/IM CPT-4: 16783 09/05/2014 TENIVAC TD VACCINE NO PRSRV 7/> IM Assigned to CPT-4: 51317Vziijeu 09/05/2014 ADMIN INFLUENZA VIRUS VAC CPT-4: G0008 06/14/2014 FLU VAC NO PRSV 4 EMMA 3 YRS+ Assigned to/Kiki Redding CPT-4: 90920Ewjzvwk 06/14/2014 04137 EST. PATIENT, LEVEL IV CPT-4: 42228 01/11/2014 URINALYSIS NONAUTO W/O SCOPE CPT-4: 55360 01/11/2014 KETOROLAC TROMETHAMINE INJ CPT-4: J1885 10/30/2013 PROMETHAZINE HCL INJECTION CPT-4: J2550 10/30/2013 ROUTINE VENIPUNCTURE CPT-4: 43040 08/20/2013 INJ TRIGGER POINT 1/2 MUSCL CPT-4: 88580 07/06/2013 IMMUNIZATION ADMIN CPT -4: 58792 06/28/2012 Influenza Virus Vaccine, Split Virus, >3 Yrs, IM CPT-4: 62203 06/28/2012 Pneumococcal Polysaccharide Vaccine, 23-Valent, Ad CPT-4: 95186 06/28/2012 URINALYSIS NONAUTO W/O SCOPE CPT-4: 23004 12/29/2011 KETOROLAC TROMETHAMINE INJ CPT-4: J1885 08/31/2011 THER/PROPH/DIAG INJ SC/IM CPT-4: 82345 08/31/2011 TRIAMCINOLONE ACET INJ NOS CPT-4: J3301 08/17/2011 THER/PROPH/DIAG INJ SC/IM CPT-4: 89867 08/17/2011 URINALYSIS NONAUTO W/O SCOPE CPT-4: 65143 08/17/2011 ROCEPHIN, PER 250 MG CPT-4: J0696 05/21/2011 THER/PROPH/DIAG INJ SC/IM CPT-4: 92487 05/21/2011 Vital Signs Date Vital 09/14/2017 Blood Pressure 1: 126/74 Code : 8480-6 Heart Rate 1: 95 bpm Height: SpO2: 95% Weight: 08/09/2017 Height: Weight: 08/08/2017 Blood Pressure 1: 126/86 Code : 8480-6 BMI: 28.3 Code : 94257-5 Heart Rate 1 : 83 bpm Height: 5'5" SpO2: 98% Weight: 170 lbs 06/10/2017 Blood Pressure 1: 110/72 Code : 8480-6 BMI: 29.1 Code : 70940-3 Heart Rate 1 : 84 bpm Height: 5'5" SpO2: 97% Weight: 175 lbs 03/04/2017 Blood Pressure 1: 102/66 Code : 8480-6 BMI: 28.4 Code : 78986-9 Heart Rate 1 : 91 bpm Height: 5'5" SpO2: 93% Weight: 170 lbs 8 oz 12/17/2016 Blood Pressure 1: 138/76 Code : 8480-6 BMI: 28.8 Code : 22481-6 Heart Rate 1 : 86 bpm Height: [...] Code : 8480-6 BMI: 28.3 Code : 92011-1 Heart Rate 1 : 83 bpm Height: 5'5" SpO2: 94% Weight: 170 lbs 06/21/2016 Blood Pressure 1: 120/80 Code : 8480-6 BMI: 29.3 Code : 36902-1 Heart Rate 1 : 76 bpm Height: 5'6" SpO2: 90% Weight: 179 lbs 05/20/2016 Blood Pressure 1: 130/70 Code : 8480-6 BMI: 29.7 Code : 09182-2 Heart Rate 1 : 79 bpm Height: 5'6" SpO2: 96% Weight: 181 lbs 01/26/2016 Blood Pressure 1: 138/80 Code : 8480-6 BMI: 29.7 Code : 02920-0 Heart Rate 1 : 75 bpm Height: 5'6" SpO2: 95% Weight: 181 lbs 11/12/2015 Blood Pressure 1: 132/62 Code : 8480-6 BMI: 29.2 Code : 21195-8 Heart Rate 1 : 73 bpm Height: 5'6" SpO2: 95% Weight: 178 lbs 09/29/2015 Blood Pressure 1: 140/76 Code : 8480-6 BMI: 29.3 Code : 53092-0 Heart Rate 1 : 69 bpm Height: 5'6" SpO2: 97% Weight: 179 lbs 08/22/2015 Blood Pressure 1: 158/78 Code : 8480-6 Blood Pressure 1: 142/88 Code: 8480-6 BMI: 30.0 Code: 54078-6 Heart Rate 1: 98 bpm Height: 5'6" SpO2: 99% Temperature : 83.9 (C) / 183.0 (F) Weight: 183 lbs 07/21/2015 Blood Pressure 1: 130/90 Code : 8480-6 Blood Pressure 1: 130/88 Code: 8480-6 BMI: 29.8 Code: 61374-7 Heart Rate 1: 64 bpm Height: 5'6" SpO2: 96% Weight: 182 lbs 05/20/2015 Blood Pressure 1: 130/68 Code : 8480-6 Heart Rate 1: 93 bpm Height: 5'6" SpO2: 96% Weight: 01/24/2015 Blood Pressure 1: 128/74 Code : 8480-6 BMI: 29.2 Code : 38580-9 Heart Rate 1 : 88 bpm Height: 5'6" Weight: 178 lbs 12/23/2014 Blood Pressure 1: 102/62 Code : 8480-6 Heart Rate 1: 88 bpm Height: SpO2: 98% Weight: 10/08/2014 Blood Pressure 1: 118/78 Code : 8480-6 BMI: 30.0 Code : 25959-4 Heart Rate 1 : 78 bpm Height: [...] Code : 8480-6 BMI: 30.2 Code : 58502-9 Heart Rate 1 : 84 bpm Height: 5'6" Weight: 184 lbs 08/20/2013 Blood Pressure 1: 132/70 Code : 8480-6 Weight: 07/06/2013 Blood Pressure 1: 126/80 Code : 8480-6 Heart Rate 1: 68 bpm Weight: 04/30/2013 Blood Pressure 1: 122/70 Code : 8480-6 BMI: 30.4 Code : 72842-4 Heart Rate 1 : 64 bpm Height: [...] Code : 8480-6 BMI: 30.5 Code : 68668-2 Heart Rate 1 : 97 bpm Height: 5'5" Weight: 183 lbs 05/21/2011 Blood Pressure 1: 128/78 Code : 8480-6 BMI: 28.4 Code : 77207-8 Heart Rate 1 : 76 bpm Height: [...] well woman exam (65+ years) Lifestyle satisfactory work/penitentiary experience 06/21/2016 None well woman exam (65+ [...] 01/24/2015 None anxiety Alleviating Factors medication 01/24/2015 [facility] Follow Up _ musculoskeletal disorder 12/23/2014 None [...] data Encounters Encounter Performer Location Codes Date EST. PATIENT, LEVEL III Diagnosis: Cellulitis of left finger[ICD10: L03.012] Annemarie Crisostomo MD, [facility] CPT-4: 63423 09/14/2017 ([id number]) [id number] EST. PATIENT, LEVEL III Diagnosis: Cellulitis of left finger[ICD10: L03.012] Chela Crisostomo MD, [facility] CPT-4: 05604 08/08/2017 ([id number]) 38329 EST. PATIENT, LEVEL IV Diagnosis: Essential (primary) hypertension[ICD10: I10] Diagnosis: Dysuria[ICD10: R30.0] Diagnosis: Rash and other nonspecific skin eruption[ICD10: R21] Diagnosis: Other insomnia[ICD10: G47.09] Diagnosis: Other fatigue[ICD10: R53.83] Diagnosis: Vitamin B12 deficiency anemia, unspecified[ICD10: D51.9] Chela Crisostomo MD , [facility] CPT-4: 77741 06/10/2017 ([id number]) 15993 EST. PATIENT, LEVEL III Diagnosis: Rash and other nonspecific skin eruption[ICD10: R21] Chela Crisostomo MD, [facility] CPT-4: 86269 03/04/2017 ([id number]) 06872 EST. PATIENT, LEVEL III Diagnosis: Cough[ICD10: R05] Diagnosis: Pneumonia, unspecified organism[ICD10: J18.9] Diagnosis: Pain in left shoulder[ICD10: M25.512] Chela Crisostomo MD, [facility] CPT-4: 72163 11/25/2016 ([id number]) 35980 EST. PATIENT, LEVEL III Diagnosis: Pain in left shoulder[ICD10: M25.512] Diagnosis: Pneumonia, unspecified organism[ICD10: J18.9] Chela Crisostomo MD, [facility] CPT-4: 42046 11/18/2016 ([id number]) 56465 EST. PATIENT, LEVEL IV Diagnosis: Cough[ICD10: R05] Diagnosis: Pneumonia, unspecified organism[ICD10: J18.9] Diagnosis: Hypoxemia[ICD10: R09.02] Chela Crisostomo MD, [facility] CPT-4: 82607 11/11/2016 ([id number]) 55750 EST. PATIENT, LEVEL IV Diagnosis: Encounter for gynecological examination (general) (routine) without abnormal findings[ICD10: Z01.419] Chela Crisostomo MD, [facility] CPT-4: 40459 06/21/2016 ([id number]) 60677 EST. PATIENT, LEVEL IV Diagnosis: Pressure ulcer of right buttock, stage 2[ICD10: L89.312] Diagnosis: Essential (primary) hypertension[ICD10: I10] Diagnosis: Myalgia[ICD10: M79.1] Chela Crisostomo MD, [facility] CPT-4: 36281 05/20/2016 ([id number]) 27659 EST. PATIENT, LEVEL III Diagnosis: Essential (primary) hypertension[ICD10: I10] Diagnosis: Unilateral primary osteoarthritis, right knee[ICD10: M17.11] Chela Crisostomo MD, [facility] CPT-4: 37610 01/26/2016 56354 EST. PATIENT, LEVEL IV Diagnosis: Cutaneous abscess of left upper limb[ICD10: L02.414] Annemarie Crisostomo MD, [facility] CPT-4: 90295 11/12/2015 62611 EST. PATIENT, LEVEL IV Diagnosis: Essential (primary) hypertension[ICD10: I10] Diagnosis: Localized edema[ICD10: R60.0] Chela Crisostomo MD [facility] CPT-4: 50117 09/29/2015 ([id number]) 05568 EST. PATIENT, LEVEL III Diagnosis: Essential (primary) hypertension[ICD10: I10] Diagnosis: Localized edema[ICD10: R60.0] Chela Crisostomo MD [facility] CPT-4: 96612 08/22/2015 ([id number]) 78495 EST. PATIENT, LEVEL IV Diagnosis: Essential (primary) hypertension[ICD10: I10] Diagnosis: Localized edema[ICD10: R60.0] Diagnosis: Pain in leg, unspecified[ICD10: M79.606] Diagnosis: Primary generalized (osteo)arthritis[ICD10: M15.0] Diagnosis: VACCIN STREP PNEUMONIAE[ICD10: Z23] Chela Crisostomo MD [facility] CPT-4: 48087 07/21/2015 ([id number]) 84985 EST. PATIENT, LEVEL III Diagnosis: Edema[ICD9: 782.3] Diagnosis: Presence of surgical incision[ICD9: V49.89] Paty Crisostomo MD, [facility] CPT-4: 54741 05/20/2015 ([id number]) 89031 EST. PATIENT, LEVEL III Diagnosis: ESSENTIAL HYPERTENSION[ICD9: 401.9] Diagnosis: Leg pain[ICD9: 729.5] Paty Crisostomo MD [facility] CPT-4: 70104 01/24/2015 ([id number]) 17694 EST. PATIENT, LEVEL III Diagnosis: ESSENTIAL HYPERTENSION[ICD9: 401.9] [facility] CPT-4: 10079 12/23/2014 ([id number]) 14795 EST. PATIENT, LEVEL III Diagnosis: ESSENTIAL HYPERTENSION[ICD9: 401.9] Diagnosis: Irritable bowel[ICD9: 564.1] Paty Crisostomo MD [facility] CPT- 4: 37842 10/08/2014 ([id number]) 17563 EST. PATIENT, LEVEL V Diagnosis: ESSENTIAL HYPERTENSION[ICD9: 401.9] Diagnosis: Varicose veins[ICD9: 454.9] Diagnosis: Leg pain[ICD9: 729.5] Diagnosis: Leg cramps[ICD9: 729.82] Diagnosis: Back pain[ICD9: 724.5] Diagnosis: Diarrhea[ICD9: 787.91] Diagnosis: Abdominal pain[ICD9: 789.00] Paty Crisostomo MD, [facility] CPT- 4: 70936 09/24/2014 ([id number]) 31577 EST. PATIENT, LEVEL III Diagnosis: Varicose veins[ICD9: 454.9] Diagnosis: Edema[ICD9: 782.3] Chela Crisostomo MD, [facility] CPT-4: 70090 07/22/2014 ([id number]) 53411 EST. PATIENT, LEVEL IV Diagnosis: Abdominal pain[ICD9: 789.00] Diagnosis: Back pain[ICD9: 724.5] Paty Crisostomo MD, [facility] CPT-4: 39997 01/07/2014 ([id number]) 53790 EST. PATIENT, LEVEL IV Diagnosis: Diarrhea[ICD9: 787.91] Diagnosis: Nausea and vomiting[ICD9: 787.01] Diagnosis: Abdominal pain[ICD9: 789.00] Chela Crisostomo MD, [facility] CPT-4: 76888 10/30/2013 ([id number]) 48077 EST. PATIENT, LEVEL IV Diagnosis: Tinea cruris[ICD9: 110.3] Diagnosis: ESSENTIAL HYPERTENSION[SNOMED: 85812792] Diagnosis: Elevated blood sugar[ICD9: 790.29] Chela Crisostomo MD, [facility] CPT-4: 79622 09/25/2013 ([id number]) 79471 EST. PATIENT, LEVEL IV Diagnosis: Leg cramps[ICD9: 729.82] Diagnosis: ESSENTIAL HYPERTENSION[SNOMED: 35311365] Diagnosis: DEFICIENCY ANEMIA[ICD9: 281.9] Diagnosis: ABN THYROID FUNCT STUDY[ICD9: 794.5] Diagnosis: Abnormal glucose[ICD9: 790.29] Diagnosis: Insomnia[ICD9: 780.52] Diagnosis: Leg pain[ICD9: 729.5] Diagnosis: Fatigue[ICD9: 780.79] Chela Crisostomo MD, [facility] CPT-4: 69858 08/20/2013 75059 EST. PATIENT, LEVEL II Diagnosis: BACKACHE[ICD9: 724.5] Diagnosis: Cervicalgia[ICD9: 723.1] Diagnosis: Spasm of muscle[ICD9: 728.85] Diagnosis: Musculoskeletal disorder and symptoms referable to neck[ICD9: 723.9] Chela Crisostomo MD, [facility] CPT-4: 60044 07/06/2013 05348 EST. PATIENT, LEVEL IV Diagnosis: Health examination of defined subpopulation[ICD9: V70.5] Diagnosis: ESSENTIAL HYPERTENSION[SNOMED: 47460193] Chela Crisostomo MD, [facility] CPT-4: 50119 04/30/2013 ([id number]) 34492 EST. PATIENT, LEVEL III Diagnosis: Diarrhea[ICD9: 787.91] Diagnosis: ALLERGIC RHINITIS[ICD9: 477.9] Paty Crisostomo MD, [facility] CPT- 4: 69404 12/29/2012 ([id number]) 59437 EST. PATIENT, LEVEL III Diagnosis: Unspecified deficiency anemia[ICD9: 281.9] Diagnosis: Abnormal thyroid blood test[ICD9: 794.5] Diagnosis: Abnormal thyroid exam[ICD9: 246.9] Diagnosis: Thinning hair[ICD9: 704.00] Paty Crisostomo MD, [facility] CPT- 4: 48028 10/26/2012 ([id number]) 02962 EST. PATIENT, LEVEL III Diagnosis: ESSENTIAL HYPERTENSION[SNOMED: 32918036] Diagnosis: EDEMA[ICD9: 782.3] Paty Crisostomo MD, [facility] CPT-4: 06501 07/12/2012 ([id number]) 60518 EST. PATIENT, LEVEL IV Diagnosis: ESSENTIAL HYPERTENSION[SNOMED: 79983017] Diagnosis: EDEMA[ICD9: 782.3] Diagnosis: VAC STREP PNEUMONIAE-FLU[ICD9: V06.6] Chela Crisostomo MD, [facility] CPT-4: 36845 06/28/2012 ([id number]) 68383 EST. PATIENT, LEVEL III Diagnosis: ESSENTIAL HYPERTENSION[SNOMED: 00457609] Paty Crisostomo MD, [facility] CPT-4: 08800 05/24/2012 ([id number]) 70284 EST. PATIENT, LEVEL IV Diagnosis: ESSENTIAL HYPERTENSION[SNOMED: 36979456] Diagnosis: EDEMA[ICD9: 782.3] Diagnosis: Bibasilar crackles[ICD9: 786.7] Paty Crisostomo MD, [facility] CPT- 4: 94588 05/09/2012 98340 EST. PATIENT, LEVEL IV Diagnosis: Acute pharyngitis[ICD9: 462] Diagnosis: Diarrhea[ICD9: 787.91] Chela Crisostomo MD, [facility] CPT-4: 40915 01/31/2012 96832 EST. PATIENT, LEVEL IV Diagnosis: Diarrhea[ICD9: 787.91] Diagnosis: Urinary tract infection[ICD9: 599.0] Diagnosis: ESSENTIAL HYPERTENSION[SNOMED: 72988753] Chela Crisostomo MD, [facility] CPT-4: 25184 12/29/2011 10306 EST. PATIENT, LEVEL IV Diagnosis: Abnormal bruising[ICD9: 782.9] Diagnosis: NSAID long-term use[ICD9: V58.64] Diagnosis: ESSENTIAL HYPERTENSION[SNOMED: 95829862] Chela Crisostomo MD, [facility] CPT-4: 48772 12/20/2011 56699 EST. PATIENT, LEVEL III Diagnosis: Hip pain, right[ICD9: 719.45] Diagnosis: Fall on same level from slipping, tripping, or stumbling[ICD9: E885.9 ] Diagnosis: ESSENTIAL HYPERTENSION[SNOMED: 62856371] Chela Crisostomo MD, [facility] CPT-4: 79615 08/31/2011 96750 EST. PATIENT, LEVEL III Diagnosis: Back pain[ICD9: 724.5] Diagnosis: Sciatica[ICD9: 724.3] Chela Crisostomo MD, [facility] CPT-4: 63168 08/17/2011 68107 EST. PATIENT, LEVEL IV Diagnosis: ACUTE PYELONEPHRITIS[ICD9: 590.10] Diagnosis: RENAL & URETERAL DIS NOS[ICD9: 593.9] Diagnosis: LUMBAGO[ICD9: 724.2] [facility] CPT-4: 07022 05/21/2011 Plan of Care Planned Activity Notes Codes Status Date Appointment: Nurse Visit 09/20/2017 Appointment: Nurse Visit 09/16/2017 Appointment: Nurse Visit 09/15/2017 Visit Plan: Abscess/Cellulitis - Left ring finger - I&D using 22 gauge needle - moderate amount of purulent drainage - culture obtained - The patient was instructed in appropriate wound care. The patient was instructed to use the antibiotic ointment as per RX. The patient is to call for any change in symptoms, increase in size of the lesion, increase in pain, worsening redness, warmth, discharge. Wound Instructions - Pt was instructed to keep the wound clean, wash with antibacterial soap, use triple antibiotic ointment, call if redness, pustular drainage, or any other acute concerns. 09/14/2017 Appointment: [facility] [phone] [facility] [place] (15 min) Moderate 09/14/2017 Patient Education: Patient Medication Summary Completed 09/14/2017 Appointment: Nurse Visit 08/15/2017 Appointment: Nurse Visit 08/10/2017 Visit Plan: Cellulitis - continue with oral antibiotics ( SWITCHED TO BACTRIM PER CULTURE REPORT +MRSA) as previously directed, return to clinic as previously directed, call for acute change in symptoms, worsening redness, warmth, discharge. Rocephin injection today -continue doxycycline - return tomorrow for wound check-culture should be back tomorrow 08/09/2017 Appointment: Nurse Visit 08/09/2017 Patient Education: Patient Medication Summary Completed 08/09/2017 Visit Plan: Cellulitis - continue with oral antibiotics as previously directed, return to clinic as previously directed, call for acute change in symptoms, worsening redness, warmth, discharge. 08/08/2017 Appointment: Chela Camara WPtel: [phone] [place] (10 min) Simple 08/08/2017 Patient Education: Patient Medication Summary Completed 08/08/2017 Appointment: Lab Draw 06/21/2017 Patient Education: Patient Medication Summary Completed 06/21/2017 Visit Plan: Hypertension - well controlled - continue with current medications, continue with no added salt diet. Pt has been encouraged to exercise daily. The pt has been advised to call the office if there are any acute concerns about change in blood pressure readings at home. Dysuria-UA 1+ leukocytes-will culture urine Anemia-B12 deficiency-check level today-will start B12 injections if indicated Insomnia - Pt has been advised to increase the light in the house during the day, and start dimming the lights during the evening hours. Pt has been advised to cut out caffeine after 5pm. Daytime napping worsens night time insomnia. Rash-rx sent to patient's pharmacy and instructed on use-call if rash does not resolve or if any worse 06/10/2017 Appointment: Chela Camara WPtel: [facility] (30 min) Complex 06/10/2017 Patient Education: Patient Medication Summary Completed 06/10/2017 Visit Plan: Euvy-lophane-mypoahz today in the office-will start patient on anti viral medication as well as antibiotics and follow up in the office in 10 days, sooner if needed. 03/04/2017 Appointment: Chela Camara WPtel: [phone] (15 min) Moderate 03/04/2017 Patient Education: Patient Medication Summary Completed 03/04/2017 Visit Plan: Medicare Exam - today we discussed the patients past history, immunizations, preventative exams/evaluations - colonoscopy, fecal occult blood testing, routine labs for renal function, glucose, cholesterol, osteoporosis evaluations, cardiovascular testing and cancer screenings. We have also discussed mental health and the signs/symptoms of depression. The patient was advised of home safety evaluations and the need to make sure that as the aging process continues, we need to be aware of different ways to make the home a safer place to reside. The patient has also been counseled that exercise is necessary - and of utmost importance as we age to help decrease fall risk and to maintain independece in the home. Today we discussed the need for the patient to create paperwork for Advanced directives as well as for the patient to provide this office with a copy of her DOPA paperwork for health care surrogate. 12/17/2016 Appointment: Chela Camara WPtel: [phone] [place] [address] - Annual Wellness Visit 12/17/2016 Patient Education: Patient Medication Summary Completed 12/17/2016 Visit Plan: Pneumonia-symptoms have resolved-no further follow up needed Left shoulder pain-suspect rotator cuff injury-recommend MRI- patient will consider-wants to rest for now and will let us know if she wants MRI 11/25/2016 Appointment: Chela Camara WPtel: [address] [place], [place] [phone] (30 min) Complex 11/25/2016 Patient Education: Patient Medication Summary Completed 11/25/2016 Visit Plan: Left shoulder/arm pain-recent fall-xray shoulder and arm Pneumonia-follow up-symptoms improved-repeat chest xray 11/18/2016 Appointment: Chela Camara WPtel: [address] [place], [place] [phone] (30 min) Complex 11/18/2016 Patient Education: Patient Medication Summary Completed 11/18/2016 Visit Plan: Pneumonia-continue antibioitic for 5 additional days-start albuterol nebulizer as directed-continue advair as directed-will continue oxygen due to hypoxemia-oxygen saturation 86% on room air at rest today in the office. Follow up in the office in 1 week-sooner if needed. 11/11/2016 Appointment: Chela Camara WPtel: [address] [place], [place] [phone] (30 min) Complex 11/11/2016 Patient Education: Patient Medication Summary Completed 11/11/2016 Appointment: Liam 09/27/2016 Patient Education: Patient Medication Summary Completed 09/27/2016 Visit Plan: Well Adult Female - exam completed. Pap and breast exam completed. Pt will be called with results of her testing. She was advised to continue with yearly annual exams. Safe sex practices discussed during office visit today. Call if any abnormal gynecologic issues during the next year, otherwise, RTC yearly or prn. 06/21/2016 Appointment: Chela Camara WPtel: [phone] (15 min) Moderate 06/21/2016 Patient Education: Patient Medication Summary Completed 06/21/2016 Care Plan: PAP Pending 06/21/2016 Visit Plan: Pressure ulcer of buttock-wound care instructions provided-matt applied today and instructed patient to call if ulcer does not heal or if any worse. Patient verbalized understanding of plan. Hypertension - well controlled - continue with current medications, continue with no added salt diet. Pt has been encouraged to exercise daily. The pt has been advised to call the office if there are any acute concerns about change in blood pressure readings at home. Chronic kvlv-ammlfhumiaox-bjvrk cymbalta 30mg daily-refill hydrocodone for prn use 05/20/2016 Appointment: Chela Camara WPtel: [facility] [place] [address] (30 min) Complex 05/20/2016 Patient Education: Patient Medication Summary Completed 05/20/2016 Care Plan: SCREENINGMAMMOGRAPHYDIGITAL LOINC : 52507-7 Pending 05/20/2016 Visit Plan: Hypertension - well controlled - continue with current medications, continue with no added salt diet. Pt has been encouraged to exercise daily. The pt has been advised to call the office if there are any acute concerns about change in blood pressure readings at home. DJD right knee- planning to have knee replacement next month with Dr Smyth at [facility] 01/26/2016 Appointment: Chela Camara WPtel: [phone] (15 min) Moderate 01/26/2016 Patient Education: Patient Medication Summary Completed 01/26/2016 Care Plan: Referral Order SNOMED-CT : 844460048 Ordered 11/19/2015 Visit Plan: Abscess/Cellulitis - The patient was instructed in appropriate wound care. The patient was instructed to use the antibiotic as per RX. The patient is to call for any change in symptoms, increase in size of the lesion, increase in pain. 11/12/2015 Appointment: (15 min) Moderate 11/12/2015 Patient Education: Patient Medication Summary Completed 11/12/2015 Visit Plan: Hypertension - well controlled - continue with current medications, continue with no added salt diet. Pt has been encouraged to exercise daily. The pt has been advised to call the office if there are any acute concerns about change in blood pressure readings at home. Edema - controlled-no change in treatment 09/29/2015 Visit Plan: Hypertension - well controlled - continue with current medications, continue with no added salt diet. Pt has been encouraged to exercise daily. The pt has been advised to call the office if there are any acute concerns about change in blood pressure readings at home. Edema - controlled-no change in treatment 09/29/2015 Appointment: (15 min) Moderate 09/29/2015 Patient Education: Patient Medication Summary Completed 09/29/2015 Patient Education: Hypertension Completed 09/29/2015 Visit Plan: Hypertension - uncontrolled - the patient's medications have been modified as documented in the visit note. The patient has been counseled to cut back on salt in diet for a no added salt diet, low fat diet, start an exercise program with low weight bearing exercises and higher aerobic activity for heart health. The patient is to check blood pressure readings as an outpatient and either fax, call, or email the readings to the office next week for practitioner to review. The pt is to call for acute concerns. Edema - pt has been advised to elevate legs to prevent dependent edema , compression has been recommended to help to naturally decrease peripheral edema. Diuretic use has been discussed and pt has been instructed in appropriate use of such medication as necessary to further attempt to reduce peripheral edema. 08/22/2015 Appointment: Chela Camara WPtel: [address] [place], [place] [phone] (30 min) [facility] 08/22/2015 Patient Education: Patient Medication Summary Completed 08/22/2015 Patient Education: Hypertension Completed 08/22/2015 Visit Plan: Hypertension - well controlled - continue with current medications, continue with no added salt diet. Pt has been encouraged to exercise daily. The pt has been advised to call the office if there are any acute concerns about change in blood pressure readings at home. Peripheral neuropathy-chronic leg pain-pt has chronic pain - has been maintained on current medications, has not sought out other medications, only uses PRN pain medications as directed, and understands the consequences of over-medication. Edema - pt has been advised to elevate legs to prevent dependent edema, compression has been recommended to help to naturally decrease peripheral edema. Diuretic use has been discussed and pt has been instructed in appropriate use of such medication as necessary to further attempt to reduce peripheral edema. 07/21/2015 Visit Plan: Hypertension - well controlled - continue with current medications, continue with no added salt diet. Pt has been encouraged to exercise daily. The pt has been advised to call the office if there are any acute concerns about change in blood pressure readings at home. Peripheral neuropathy-chronic leg pain-pt has chronic pain - has been maintained on current medications, has not sought out other medications, only uses PRN pain medications as directed, and understands the consequences of over-medication. Edema - pt has been advised to elevate legs to prevent dependent edema, compression has been recommended to help to naturally decrease peripheral edema. Diuretic use has been discussed and pt has been instructed in appropriate use of such medication as necessary to further attempt to reduce peripheral edema. 07/21/2015 Appointment: (30 min) Complex 07/21/2015 Patient Education: Patient Medication Summary Completed 07/21/2015 Patient Education: Hypertension Completed 07/21/2015 Visit Plan: Edema - pt has been advised to elevate legs to prevent dependent edema, compression has been recommended to help to naturally decrease peripheral edema. Diuretic use has been discussed and pt has been instructed in appropriate use of such medication as necessary to further attempt to reduce peripheral edema. Left leg incision-arnuad intact-slight redness noted-follow up with Dr Smyth (surgeon) on Tuesday05/20/2015 Appointment: (30 min) Complex 05/20/2015 Patient Education: Patient Medication Summary Completed 05/20/2015 Visit Plan: Hypertension - well controlled - continue with current medications, continue with no added salt diet. Pt has been encouraged to exercise daily. The pt has been advised to call the office if there are any acute concerns about change in blood pressure readings at home. Right leg back- recent femur fracture-refill hydrocodone 01/24/2015 Appointment: [facility]el[phone] [phone] Follow up 01/24/2015 Patient Education: Patient Medication Summary Completed 01/24/2015 Patient Education: Hypertension Completed 01/24/2015 Visit Plan: Hypertension - well controlled - continue with current medications, continue with no added salt diet. The pt has been advised to call the office if there are any acute concerns about change in blood pressure readings at home. 12/23/2014 Appointment: Paty Crisostomo WPtel: [id number] [facility] follow up 12/23/2014 Patient Education: Patient Medication Summary Completed 12/23/2014 Patient Education: Hypertension Completed 12/23/2014 Appointment: Paty Crisostomo WPtel: [phone] [facility] Follow up 12/10/2014 Visit Plan: Hypertension - well controlled - continue with current medications, continue with no added salt diet. Pt has been encouraged to exercise daily. The pt has been advised to call the office if there are any acute concerns about change in blood pressure readings at home. Irritable Bowel syndrome - Discussed need for adequate daily fiber intake. Continue with a healthy diet, and I have recommended addition of probiotic to the diet when having loose bowel movements. 10/08/2014 Appointment: Paty Crisostomo WPtel: [phone] [facility] Follow up 10/08/2014 Patient Education: Patient Medication Summary Completed 10/08/2014 Patient Education: Hypertension Completed 10/08/2014 Care Plan: Referral Order SNOMED-CT : [id number] Ordered 10/08/2014 Visit Plan: Hypertension - uncontrolled - the patient's medications have been modified as documented in the visit note. The patient has been counseled to cut back on salt in diet for a no added salt diet, low fat diet, start an exercise program with low weight bearing exercises and higher aerobic activity for heart health. The patient is to check blood pressure readings as an outpatient and either fax, call, or email the readings to the office next week for practitioner to review. The pt is to call for acute concerns. Medication increased - bystolic increased to 10mg bid. Varicose veins - Referral to Dr. Trent - vein specialist for evaluation - and hopefully with treatment, some of Phyliss' pain will improve. Pt to use voltaren to lower legs/knees and medial apsect of legs for treatment of some of the inflammation of her veins in lower legs. Diarrhea - will check ct of abdomen and pelvis - start on probiotic. 09/24/2014 Patient Education: Patient Medication Summary Completed 09/24/2014 Patient Education: Hypertension Completed 09/24/2014 Patient Education: Patient Medication Summary Completed 09/05/2014 Visit Plan: Edema - pt has been advised to elevate legs to prevent dependent edema, compression has been recommended to help to naturally decrease peripheral edema. Diuretic use has been discussed and pt has been instructed in appropriate use of such medication as necessary to further attempt to reduce peripheral edema. 07/22/2014 Patient Education: Patient Medication Summary Completed 07/22/2014 Appointment: Paty Crisostomo WPtel: [phone] [facility] [facility] Injection 06/14/2014 Patient Education: Patient Medication Summary Completed 06/14/2014 Patient Education: Patient Medication Summary Completed 06/13/2014 Visit Plan: Abd pain-flank xdxb-mzjsrrhuaiiupx-ofqldmyow with Dr Crisostomo-plan for outpatient IV fluids and IV antibiotics as well as pain medicaton while allowing her bowels to rest. Patient verbalized understanding of plan. 01/11/2014 Appointment: Chela Camara WPtel[facility] [phone] [phone] Sick 01/11/2014 Patient Education: Patient Medication Summary Completed 01/11/2014 Visit Plan: Abdominal pain - pt has history of pyelonephritis - happened in 2010 - recommended pt to have ct scan, check labs - and will start antibiotic after labs are obtained. The ct scan and labs have been ordered STAT. review of Payal's chart reveals in 2010 she had pyelonephritis on the right side, will re-eval with ct scan 01/07/2014 Patient Education: Patient Medication Summary Completed 01/07/2014 Visit Plan: Abdominal bmsbeubj-nlmxcnft-wjyvb flagyl and probiotic and monitor symptoms. Call or go to ER for any worsening or worrisome symptoms. Recommend clear liquid diet advance to bland as tolerated. Toradol and phenergan injfections today in the office for acute symptoms. Patient verbalized understanding of plan. 10/30/2013 Appointment: Chela Camara WPtel: [phone] [phone] Sick 10/30/2013 Patient Education: Patient Medication Summary Completed 10/30/2013 Visit Plan: Hypertension - well controlled - continue with current medications, continue with no added salt diet. Pt has been encouraged to exercise daily. The pt has been advised to call the office if there are any acute concerns about change in blood pressure readings at home. Tinea cruris-RX for nystatin Elevated blood sugar-wants to lose weight-RX for metformin 09/25/2013 Patient Education: Patient Medication Summary Completed 09/25/2013 Patient Education: Hypertension Completed 09/25/2013 Visit Plan: Leg cramps-plan to check labs including magnesium, iron, and vitamin D levels-if okay, may consider trial of requip for restless leg syndrome. Elevated blood oofnyt-zggnzybiz-qyiibkff episodes-check Hgb A1C and TSH Fatigue-check labs 08/20/2013 Appointment: Chela Camara WPtel: [phone] [phone] Other 08/20/2013 Patient Education: Patient Medication Summary Completed 08/20/2013 Patient Education: Hypertension Completed 08/20/2013 Visit Plan: Trigger Points - Injected trigger points today , pt given post-injection instructions, signs and symptoms for which to call the office. Pt to use heat to the muscles today, and take an anti-inflammatory today unless otherwise contraindicated by renal function or other disease process. 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 04/30/2013 Visit Plan: Hypertension - well controlled - continue with current medications, continue with no added salt diet. Pt has been encouraged to exercise daily. The pt has been advised to call the office if there are any acute concerns about change in blood pressure readings at home. 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 04/30/2013 Appointment: Chela Camara WPtel: [phone] [phone] Other 04/30/2013 Patient Education: Patient Medication Summary Completed 04/30/2013 Patient Education: Hypertension Completed 04/30/2013 Visit Plan: Diarrhea - recommended bland diet, low fat diet , start on probiotic, and rehydrate with gatorade-like product. Pt to call if feeling worse, diarrhea becomes bloody, or does not improve with above recommendations. Pt to call for acute worsening of stomach upset or stomach pain. Samples of ALIGN provided and instructed on use. RX for cdiff stool studies provided Allergies - chronic - recommended pt to use allergy medication as prescribed. Pt has been counseled as the the appropriate use of the medication. Pt to call if allergy symptoms are not controlled with the medication. If using nasal spray, instructions as follows: Nasal spray- use twice daily, one spray per nostril twice daily, after 30 minutes, rinse out nose with saline spray.. Use opposite hand per nostril to spray in the nasal steroid allergy spray. 12/29/2012 Patient Education: Patient Medication Summary Completed 12/29/2012 Visit Plan: Thinning hair, fatigue, enlarged neck - recommended thyroid ultrasound, check labs, and monitor symptoms. Pt has been recommended pt to consider changing hair products, consider starting on rogaine and we will call her with lab report. 10/26/2012 Appointment: Paty Crisostomo WPtel: [address] [place] [address] Other 10/26/2012 Patient Education: Patient Medication Summary Completed 10/26/2012 Visit Plan: Hypertension - well controlled - continue with current medications, continue with no added salt diet. Pt has been encouraged to exercise daily. The pt has been advised to call the office if there are any acute concerns about change in blood pressure readings at home. Edema - pt has been advised to elevate legs to prevent dependent edema, compression has been recommended to help to naturally decrease peripheral edema. Diuretic use has been discussed and pt has been instructed in appropriate use of such medication as necessary to further attempt to reduce peripheral edema. 07/12/2012 Appointment: Paty Crisostomo WPtel: [address] [place], [place] [id number] Follow up 07/12/2012 Patient Education: Patient Medication Summary Completed 07/12/2012 Patient Education: High Blood Pressure: Essential Hypertension Completed 2011 Appointment: Paty Crisostomo WPtel: [address] [place], [place] [id number] Follow up 07/03/2012 Visit Plan: Hypertension - uncontrolled - the patient's medications have been modified as documented in the visit note. The patient has been counseled to cut back on salt in diet for a no added salt diet, low fat diet, start an exercise program with low weight bearing exercises and higher aerobic activity for heart health. The patient is to check blood pressure readings as an outpatient and either fax, call, or email the readings to the office next week for practicioner to review. The pt is to call for acute concerns. Edema - I have informed the patient of ways to naturally decrease the swelling in their lower legs - cut back on salt to 2 - 3 grams/day, the lower the sodium content of food, the healthier and less potential for swelling, however don't completely cut all sodium from diet. Pt was also counseled to elevate lower legs and/or use compression socks from toes to thighs. Influenza and pneumonia vaccines today in the office 06/28/2012 Appointment: Chela Camara WPtel: [facility] Other 06/28/2012 Patient Education: Patient Medication Summary Completed 06/28/2012 Patient Education: High Blood Pressure: Essential Hypertension Completed 2011 Visit Plan: Hypertension - well controlled - continue with current medications, continue with no added salt diet. Pt has been encouraged to exercise daily. The pt has been advised to call the office if there are any acute concerns about change in blood pressure readings at home. PT HAS BEEN INSTRUCTED TO: CHANGE BATTERIES IN THE BLOOD PRESSURE CUFF, THEN BRING TO OFFICE FOR RE-CHECK TO ASSESS FOR ACCURACY OF THE HOME BLOOD PRESSURE READINGS. 05/24/2012 Appointment: Chela Camara WPtel: [phone] [phone] Follow up 05/24/2012 Patient Education: Patient Medication Summary Completed 05/24/2012 Patient Education: High Blood Pressure: Essential Hypertension Completed 2011 Visit Plan: Hypertension - uncontrolled - the patient's medications have been modified as documented in the visit note. The patient has been counseled to cut back on salt in diet for a no added salt diet, low fat diet, start an exercise program with low weight bearing exercises and higher aerobic activity for heart health. The patient is to check blood pressure readings as an outpatient and either fax, call, or email the readings to the office next week for practicioner to review. The pt is to call for acute concerns. Edema - uncontrolled swelling. I have informed the patient of ways to naturally decrease the swelling in their lower legs - cut back on salt to 2 - 3 grams/day, the lower the sodium content of food, the healthier and less potential for swelling, however don't completely cut all sodium from diet. Pt was also counseled to elevate lower legs and/or use compression socks from toes to thighs. Rzamwtyu-bpuia-yahel xray and labs-will proceed as indicated 05/09/2012 Appointment: Chela Camara WPtel: [address] [place] [address] Other 05/09/2012 Patient Education: Patient Medication Summary Completed 05/09/2012 Patient Education: High Blood Pressure: Essential Hypertension Completed 2011 Visit Plan: Pharyngitis-Discussed natural and expected course of this diagnosis and need to alert me if symtpoms do not follow expected course, or if any worse. Recommended salt water gargles as needed for pain. Tylenol/motrin as needed for fever/discomfort. Diarrhea-discussed natural and expected course of this diagnosis and to alert me if symptoms do not follow expected course, or if any worse. Recent stools did not test for cdiff-RX provided for stool for cdiff as patient has been on multiple abx recently. Continue with probiotic-call if symptos worsen or abdominal pain develops. Plan to also check labs in the morning as well. Patient verbalized understanding of plan. 01/31/2012 Appointment: Chela Camara WPtel: [phone] Other 01/31/2012 Patient Education: Patient Medication Summary Completed 01/31/2012 Visit Plan: Diarrhea-discussed natural and expected course of this diagnosis and to alert me if symptoms do not follow expected course, or if any worse. Plan to check stool for cdiff and culture. RX for flagyl and lactobacillus sent to patient's pharmacy. UTI-UA positive nitrites today in clinic-will send for culture-discussed natural and expected course of this diagnosis and to alert me if symptoms do not follow expected course or if any worse. Plan for macrobid for acute infection and then macrobid 50mg po daily for prophalaxis as patient has had multiple resistent UTI's. Recommend follow up with urologist as well. Patient verbalized understanding of plan . Hypertension - The patient has been counseled to cut back on salt in diet for a no added salt diet, low fat diet, start an exercise program with low weight bearing exercises and higher aerobic activity for heart health. The patient is to check blood pressure readings as an outpatient and either fax, call, or email the readings to the office next week for practicioner to review. The pt is to call for acute concerns. 12/29/2011 Appointment: Chela Camara WPtel: [address] [place] [address] Other 12/29/2011 Patient Education: Patient Medication Summary Completed 12/29/2011 Patient Education: High Blood Pressure: Essential Hypertension Completed 2011 Visit Plan: Easy bruising/bleeding-discussed natural and expected course of this diagnosis and instructed patient to alert me if symptoms do not resolve, or if any worse. Instructed patient to go to ER for uncontrolled bleeding. STOP the naproxen and change celebrex to 1 tab twice dialy. Patient verbalized understanding of plan. Hypertension - well controlled - continue with current medications, continue with no added salt diet. Pt has been encouraged to exercise daily. The pt has been advised to call the office if there are any acute concerns about change in blood pressure readings at home. 12/20/2011 Appointment: Chela Camara WPtel: [address] [place] [address] Other 12/20/2011 Patient Education: Patient Medication Summary Completed 12/20/2011 Patient Education: High Blood Pressure: Essential Hypertension Completed 2011 Visit Plan: Right hip pain-patient reports her pain is more in her hip and groin-states she fell about a month ago getting out of her computer chair which she did not mention previously. States her sciatica pain has improved in the past 2 weeks. Patient sent to the hospital for xrays now- toradol injection given in the office and recommende she hold her anti- inflammatory tonight. I also recommended that Marcial stop taking either naproxen or celebrex as this is duplicate therapy and increases her risk for a GI bleed. Hypertension - continue with current medications, continue with no added salt diet. Pt has been encouraged to exercise daily. The pt has been advised to call the office if there are any acute concerns about change in blood pressure readings at home. 08/31/2011 Appointment: Chela Camara WPtel: [address] [place] [address] Other 08/31/2011 Patient Education: Patient Medication Summary Completed 08/31/2011 Patient Education: High Blood Pressure: Essential Hypertension Completed 2010 Visit Plan: Low back pain- the patient was instructed in appropriate posture, need for weight loss to alleviate abdominal obesity that is worsening the patient's back pain.. The pt is to use prn antiinflammatories to manage acute pain. The patient is to call the office if the pain is worsening or does not improve. Back exercises provided for patient. Recommend physical therapy as well-patient not interested at this time. Instructed patient to return in 2 weeks-may consider MRI if pain persists or any worse. Check UA as well due to patient's history of UTI-negative. No further treatment indicated. 08/17/2011 Appointment: Chela Camara WPtel: [address] [place], [place] [id number] [place] [address] Other 08/17/2011 Patient Education: Patient Medication Summary Completed 08/17/2011 Patient Education: .Amazing charts Exercise for Sciatica Completed 08/17/2011 Visit Plan: Pyelonephritis - stop nitrofurantoin - starton levofloxacin 500mg qday x [address] scan scheduled for @ 4:15pm Start the levofloxacin tonight, start on a probiotic, such as [employer] or [employer]edo to prevent diarrhea while on the antibiotic. Back pain - due to pyelonephritis - call if not improved. 05/21/2011 Appointment: Paty Crisostomo WPtel: [address] [place], [place] [id number] Follow up 05/21/2011 Patient Education: Patient Medication Summary Completed 05/21/2011 Referral: Alber Ellison Referral Initiated Referral: Alber Ellison they will make appt Initiated Referral: Vivian Coy Referral Appointment Requested Instructions Comment . Abdominal pain - pt has history of pyelonephritis - happened in 2010 - recommended pt to have ct scan, check labs - and will start antibiotic after labs are obtained. The ct scan and labs have been ordered STAT. review of Payal's chart reveals in 2010 she had pyelonephritis on the right side, will re-eval with ct scan . Cellulitis - continue with oral antibiotics (SWITCHED TO BACTRIM PER CULTURE REPORT +MRSA) as previously directed, return to clinic as previously directed, call for acute change in symptoms, worsening redness, warmth, discharge. Rocephin injection today -continue doxycycline -return tomorrow for wound check- culture should be back tomorrow INCREASE GABAPENTIN TO 3 CAPSULES IN THE MORNING, 1 AT NOON AND 3 IN THE EVENING Pneumonia 13 today in the office . Hypertension - well controlled - continue with current medications, continue with no added salt diet. Pt has been encouraged to exercise daily. The pt has been advised to call the office if there are any acute concerns about change in blood pressure readings at home. Peripheral neuropathy-chronic leg pain-pt has chronic pain - has been maintained on current medications, has not sought out other medications, only uses PRN pain medications as directed, and understands the consequences of over- medication. Edema - pt has been advised to elevate legs to prevent dependent edema, compression has been recommended to help to naturally decrease peripheral edema. Diuretic use has been discussed and pt has been instructed in appropriate use of such medication as necessary to further attempt to reduce peripheral edema. INCREASE GABAPENTIN TO 3 CAPSULES IN THE MORNING, 1 AT NOON AND 3 IN THE EVENING Pneumonia 13 today in the office . Hypertension - well controlled - continue with current medications, continue with no added salt diet. Pt has been encouraged to exercise daily. The pt has been advised to call the office if there are any acute concerns about change in blood pressure readings at home. Peripheral neuropathy-chronic leg pain-pt has chronic pain - has been maintained on current medications, has not sought out other medications, only uses PRN pain medications as directed, and understands the consequences of over- medication. Edema - pt has been advised to elevate legs to prevent dependent edema, compression has been recommended to help to naturally decrease peripheral edema. Diuretic use has been discussed and pt has been instructed in appropriate use of such medication as necessary to further attempt to reduce peripheral edema. . Hypertension - well controlled - continue with current medications, continue with no added salt diet. Pt has been encouraged to exercise daily. The pt has been advised to call the office if there are any acute concerns about change in blood pressure readings at home. Edema - pt has been advised to elevate legs to prevent dependent edema, compression has been recommended to help to naturally decrease peripheral edema. Diuretic use has been discussed and pt has been instructed in appropriate use of such medication as necessary to further attempt to reduce peripheral edema. Macrobid 100mg po BID x 10 days for acute UTI then start Macrobid 50mg po daily prophalaxis. Call with name of urologist and we will send a referral. Flagyl 500mg po three times daily for the next week. Script for stools for cdiff and culture provided-take to [facility] lab. We will send your urine for culture and call you with the results. Probiotic twice daily for the next 2 weeks. Call if diarrhea does not resolve, or if any worse. Recommend clear liquid diet advance to bland foods as tolerated. . Diarrhea- discussed natural and expected course of this diagnosis and to alert me if symptoms do not follow expected course, or if any worse. Plan to check stool for cdiff and culture. RX for flagyl and lactobacillus sent to patient's pharmacy. UTI-UA positive nitrites today in clinic-will send for culture-discussed natural and expected course of this diagnosis and to alert me if symptoms do not follow expected course or if any worse. Plan for macrobid for acute infection and then macrobid 50mg po daily for prophalaxis as patient has had multiple resistent UTI's. Recommend follow up with urologist as well. Patient verbalized understanding of plan . Hypertension - The patient has been counseled to cut back on salt in diet for a no added salt diet, low fat diet, start an exercise program with low weight bearing exercises and higher aerobic activity for heart health. The patient is to check blood pressure readings as an outpatient and either fax , call, or email the readings to the office next week for practicioner to review. The pt is to call for acute concerns. . Abscess/Cellulitis - Left ring finger - I&D using 22 gauge needle - moderate amount of purulent drainage - culture obtained - The patient was instructed in appropriate wound care. The patient was instructed to use the antibiotic ointment as per RX. The patient is to call for any change in symptoms, increase in size of the lesion, increase in pain, worsening redness, warmth, discharge. Wound Instructions - Pt was instructed to keep the wound clean, wash with antibacterial soap, use triple antibiotic ointment, call if redness, pustular drainage, or any other acute concerns. . Edema - pt has been advised to elevate legs to prevent dependent edema, compression has been recommended to help to naturally decrease peripheral edema. Diuretic use has been discussed and pt has been instructed in appropriate use of such medication as necessary to further attempt to reduce peripheral edema. Left leg incision-arnaud intact-slight redness noted-follow up with Dr Smyth ( surgeon) on Tuesday pneumonia 23 due in June . Medicare Exam - today we discussed the patients past history, immunizations, preventative exams/ evaluations - colonoscopy, fecal occult blood testing, routine labs for renal function, glucose, cholesterol, osteoporosis evaluations, cardiovascular testing and cancer screenings. We have also discussed mental health and the signs/symptoms of depression. The patient was advised of home safety evaluations and the need to make sure that as the aging process continues, we need to be aware of different ways to make the home a safer place to reside. The patient has also been counseled that exercise is necessary - and of utmost importance as we age to help decrease fall risk and to maintain independece in the home. Today we discussed the need for the patient to create paperwork for Advanced directives as well as for the patient to provide this office with a copy of her DOPA paperwork for health care surrogate. Xray right hip-we will call you with the results. . Right hip pain-patient reports her pain is more in her hip and groin-states she fell about a month ago getting out of her computer chair which she did not mention previously. States her sciatica pain has improved in the past 2 weeks. Patient sent to the hospital for xrays now-toradol injection given in the office and recommende she hold her anti-inflammatory tonight. I also recommended that Marcial stop taking either naproxen or celebrex as this is duplicate therapy and increases her risk for a GI bleed. Hypertension - continue with current medications, continue with no added salt diet. Pt has been encouraged to exercise daily. The pt has been advised to call the office if there are any acute concerns about change in blood pressure readings at home. . Thinning hair, fatigue, enlarged neck - recommended thyroid ultrasound, check labs, and monitor symptoms. Pt has been recommended pt to consider changing hair products, consider starting on rogaine and we will call her with lab report. PROBIOTIC TWICE DAILY. Abdominal yielizop-vlmabddm-stofr flagyl and probiotic and monitor symptoms. Call or go to ER for any worsening or worrisome symptoms. Recommend clear liquid diet advance to bland as tolerated. Toradol and phenergan injfections today in the office for acute symptoms. Patient verbalized understanding of plan. compression hose check labs . Edema - pt has been advised to elevate legs to prevent dependent edema, compression has been recommended to help to naturally decrease peripheral edema. Diuretic use has been discussed and pt has been instructed in appropriate use of such medication as necessary to further attempt to reduce peripheral edema. Stop the naproxen Take 1 celebrex in the morning and the other in the evening. Call if you have anymore episodes of bleeding. We will call you with your labs-cbc,cmp. Easy bruising/bleeding-discussed natural and expected course of this diagnosis and instructed patient to alert me if symptoms do not resolve, or if any worse. Instructed patient to go to ER for uncontrolled bleeding. STOP the naproxen and change celebrex to 1 tab twice dialy. Patient verbalized understanding of plan. Hypertension - well controlled - continue with current medications, continue with no added salt diet. Pt has been encouraged to exercise daily. The pt has been advised to call the office if there are any acute concerns about change in blood pressure readings at home. . Pneumonia-symptoms have resolved-no further follow up needed Left shoulder pain-suspect rotator cuff injury-recommend MRI-patient will consider-wants to rest for now and will let us know if she wants MRI Stop hydrochlorathiazide Start bystolic 10mg daily Monitor your blood pressure at home and record. Bring in your readings to your next appointment, or as directed. Call for chest pain, shortness of breath, headaches, or other concerns. . Hypertension - uncontrolled - the patient's medications have been modified as documented in the visit note. The patient has been counseled to cut back on salt in diet for a no added salt diet, low fat diet, start an exercise program with low weight bearing exercises and higher aerobic activity for heart health. The patient is to check blood pressure readings as an outpatient and either fax , call, or email the readings to the office next week for practicioner to review. The pt is to call for acute concerns. Edema - uncontrolled swelling. I have informed the patient of ways to naturally decrease the swelling in their lower legs - cut back on salt to 2 - 3 grams/day, the lower the sodium content of food, the healthier and less potential for swelling, however don't completely cut all sodium from diet. Pt was also counseled to elevate lower legs and/or use compression socks from toes to thighs. Osnaghvz-mjnox-vrwve xray and labs-will proceed as indicated albuterol nebulizer REPEAT XRAY CHEST NEXT WEEK-ALSO XRAY LEFT SHOULDER/HUMERUS . Pneumonia- continue antibioitic for 5 additional days-start albuterol nebulizer as directed -continue advair as directed-will continue oxygen due to hypoxemia-oxygen saturation 86% on room air at rest today in the office. Follow up in the office in 1 week-sooner if needed. Strep swab today in the office-we will call you with the results. Start the diflucan today-take it daily for 7 days. Only start the zithromax if symptoms do not improve. Due for fasting labs-RX provided. Check stool for cdiff. Continue lactinex twice daily. . Pharyngitis-Discussed natural and expected course of this diagnosis and need to alert me if symtpoms do not follow expected course, or if any worse. Recommended salt water gargles as needed for pain. Tylenol/motrin as needed for fever/discomfort. Diarrhea-discussed natural and expected course of this diagnosis and to alert me if symptoms do not follow expected course, or if any worse. Recent stools did not test for cdiff-RX provided for stool for cdiff as patient has been on multiple abx recently. Continue with probiotic-call if symptos worsen or abdominal pain develops. Plan to also check labs in the morning as well. Patient verbalized understanding of plan. . Hypertension - well controlled - continue with current medications, continue with no added salt diet. Pt has been encouraged to exercise daily. The pt has been advised to call the office if there are any acute concerns about change in blood pressure readings at home. Right leg back-recent femur fracture-refill hydrocodone . Hypertension - well controlled - continue with current medications, continue with no added salt diet. The pt has been advised to call the office if there are any acute concerns about change in blood pressure readings at home. CYMBALTA 30MG DAILY MEDIHONEY TO ULCER ON BUTTOCK-CHANGE DRESSING DAILY UNTIL HEALED . Pressure ulcer of buttock-wound care instructions provided-matt applied today and instructed patient to call if ulcer does not heal or if any worse. Patient verbalized understanding of plan. Hypertension - well controlled - continue with current medications, continue with no added salt diet. Pt has been encouraged to exercise daily. The pt has been advised to call the office if there are any acute concerns about change in blood pressure readings at home. Chronic vumc-blfupmfeztwv-olzhp cymbalta 30mg daily-refill hydrocodone for prn use use voltaren to inside of lower legs/knees twice daily pt to use tiger balm in between use of voltaren thigh - high compression socks to be worn on during day off at night probiotic daily referral to dr. trent vein specialist ct of the abdomen and pelvis . Hypertension - uncontrolled - the patient's medications have been modified as documented in the visit note. The patient has been counseled to cut back on salt in diet for a no added salt diet, low fat diet, start an exercise program with low weight bearing exercises and higher aerobic activity for heart health. The patient is to check blood pressure readings as an outpatient and either fax , call, or email the readings to the office next week for practitioner to review. The pt is to call for acute concerns. Medication increased - bystolic increased to 10mg bid. Varicose veins - Referral to Dr. Trent - vein specialist for evaluation - and hopefully with treatment, some of Phyliss' pain will improve. Pt to use voltaren to lower legs/knees and medial apsect of legs for treatment of some of the inflammation of her veins in lower legs. Diarrhea - will check ct of abdomen and pelvis - start on probiotic. . Diarrhea - recommended bland diet, low fat diet, start on probiotic, and rehydrate with gatorade-like product. Pt to call if feeling worse, diarrhea becomes bloody, or does not improve with above recommendations. Pt to call for acute worsening of stomach upset or stomach pain. Samples of ALIGN provided and instructed on use. RX for cdiff stool studies provided Allergies - chronic - recommended pt to use allergy medication as prescribed. Pt has been counseled as the the appropriate use of the medication. Pt to call if allergy symptoms are not controlled with the medication. If using nasal spray, instructions as follows: Nasal spray- use twice daily, one spray per nostril twice daily, after 30 minutes, rinse out nose with saline spray.. Use opposite hand per nostril to spray in the nasal steroid allergy spray. . Hypertension - well controlled - continue with current medications, continue with no added salt diet. Pt has been encouraged to exercise daily. The pt has been advised to call the office if there are any acute concerns about change in blood pressure readings at home. Edema -controlled-no change in treatment . Hypertension - well controlled - continue with current medications, continue with no added salt diet. Pt has been encouraged to exercise daily. The pt has been advised to call the office if there are any acute concerns about change in blood pressure readings at home. Edema -controlled-no change in treatment trazodone-start with 1/2 tab at bedtime-increase to a full tab as needed for insomnia UA check labs triamcinolone cream for rash-call if rash does not resolve . Hypertension - well controlled - continue with current medications, continue with no added salt diet. Pt has been encouraged to exercise daily. The pt has been advised to call the office if there are any acute concerns about change in blood pressure readings at home. Dysuria-UA 1+leukocytes-will culture urine Anemia-B12 deficiency-check level today-will start B12 injections if indicated Insomnia - Pt has been advised to increase the light in the house during the day , and start dimming the lights during the evening hours. Pt has been advised to cut out caffeine after 5pm. Daytime napping worsens night time insomnia. Rash-rx sent to patient's pharmacy and instructed on use-call if rash does not resolve or if any worse . Abscess/Cellulitis - The patient was instructed in appropriate wound care. The patient was instructed to use the antibiotic as per RX. The patient is to call for any change in symptoms, increase in size of the lesion, increase in pain. Hold celebrex while on the prednisone. Start the prednisone tomorrow. . Low back pain- the patient was instructed in appropriate posture, need for weight loss to alleviate abdominal obesity that is worsening the patient's back pain.. The pt is to use prn antiinflammatories to manage acute pain. The patient is to call the office if the pain is worsening or does not improve. Back exercises provided for patient. Recommend physical therapy as well-patient not interested at this time. Instructed patient to return in 2 weeks-may consider MRI if pain persists or any worse. Check UA as well due to patient's history of UTI-negative. No further treatment indicated. RETURN TOMORROW MORNING FOR DRESSING TAOOJA-[id number] OF FINGER . Cellulitis - continue with oral antibiotics as previously directed, return to clinic as previously directed, call for acute change in symptoms, worsening redness, warmth, discharge. . Leg cramps-plan to check labs including magnesium, iron, and vitamin D levels-if okay, may consider trial of requip for restless leg syndrome. Elevated blood jnevlr-avleeomxs-xntjeomy episodes-check Hgb A1C and TSH Fatigue-check labs . 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 . Hypertension - well controlled - continue with current medications, continue with no added salt diet. Pt has been encouraged to exercise daily. The pt has been advised to call the office if there are any acute concerns about change in blood pressure readings at home. 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 Lasx 20mg po daily as needed for swelling. Take a potassium when you take the lasix. Bystolic 10mg in the morning and start 5mg in the evening. Return in 2 weeks-bring your blood pressure log and get your blood work done before your appointment. . Hypertension - uncontrolled - the patient's medications have been modified as documented in the visit note. The patient has been counseled to cut back on salt in diet for a no added salt diet, low fat diet, start an exercise program with low weight bearing exercises and higher aerobic activity for heart health. The patient is to check blood pressure readings as an outpatient and either fax , call, or email the readings to the office next week for practicioner to review. The pt is to call for acute concerns. Edema - I have informed the patient of ways to naturally decrease the swelling in their lower legs - cut back on salt to 2 - 3 grams/day, the lower the sodium content of food, the healthier and less potential for swelling, however don't completely cut all sodium from diet. Pt was also counseled to elevate lower legs and/or use compression socks from toes to thighs. Influenza and pneumonia vaccines today in the office . Abd pain-flank fnrc-gcsgohyzfdfcfx-hmvsnbbyb with Dr Crisostomo-plan for outpatient IV fluids and IV antibiotics as well as pain medicaton while allowing her bowels to rest. Patient verbalized understanding of plan. . Trigger Points - Injected trigger points today, pt given post-injection instructions, signs and symptoms for which to call the office. Pt to use heat to the muscles today, and take an anti-inflammatory today unless otherwise contraindicated by renal function or other disease process. FLU SHOT . Well Adult Female - exam completed. Pap and breast exam completed. Pt will be called with results of her testing. She was advised to continue with yearly annual exams. Safe sex practices discussed during office visit today. Call if any abnormal gynecologic issues during the next year, otherwise, RTC yearly or prn. . Pyelonephritis - stop nitrofurantoin - starton levofloxacin 500mg qday x [address] scan scheduled for @ 4:15pm Start the levofloxacin tonight, start on a probiotic, such as [employer]'s One Stop Salon or Boedo to prevent diarrhea while on the antibiotic. Back pain - due to pyelonephritis - call if not improved. AMLODIPINE 5MG DAILY MONITOR BLOOD PRESSURE AND PULSE AT HOME CALL IF BLOOD PRESSURE REMAINS ELEVATD AND WE CAN RESTART YOUR HCTZ CALL IF SWELLING INCREASES . Hypertension - uncontrolled - the patient's medications have been modified as documented in the visit note. The patient has been counseled to cut back on salt in diet for a no added salt diet, low fat diet, start an exercise program with low weight bearing exercises and higher aerobic activity for heart health. The patient is to check blood pressure readings as an outpatient and either fax , call, or email the readings to the office next week for practitioner to review. The pt is to call for acute concerns. Edema - pt has been advised to elevate legs to prevent dependent edema, compression has been recommended to help to naturally decrease peripheral edema. Diuretic use has been discussed and pt has been instructed in appropriate use of such medication as necessary to further attempt to reduce peripheral edema. . Hypertension - well controlled - continue with current medications, continue with no added salt diet. Pt has been encouraged to exercise daily. The pt has been advised to call the office if there are any acute concerns about change in blood pressure readings at home. Irritable Bowel syndrome - Discussed need for adequate daily fiber intake. Continue with a healthy diet, and I have recommended addition of probiotic to the diet when having loose bowel movements. . Left shoulder/arm pain-recent fall-xray shoulder and arm Pneumonia-follow up-symptoms improved-repeat chest xray . Hypertension - well controlled - continue with current medications, continue with no added salt diet. Pt has been encouraged to exercise daily. The pt has been advised to call the office if there are any acute concerns about change in blood pressure readings at home. Tinea cruris-RX for nystatin Elevated blood sugar-wants to lose weight-RX for metformin culture rash buttock . Rsgb-xgjsosr-zgozula today in the office-will start patient on anti viral medication as well as antibiotics and follow up in the office in 10 days, sooner if needed. . Hypertension - well controlled - continue with current medications, continue with no added salt diet. Pt has been encouraged to exercise daily. The pt has been advised to call the office if there are any acute concerns about change in blood pressure readings at home. PT HAS BEEN INSTRUCTED TO: CHANGE BATTERIES IN THE BLOOD PRESSURE CUFF, THEN BRING TO OFFICE FOR RE-CHECK TO ASSESS FOR ACCURACY OF THE HOME BLOOD PRESSURE READINGS. . Hypertension - well controlled - continue with current medications, continue with no added salt diet. Pt has been encouraged to exercise daily. The pt has been advised to call the office if there are any acute concerns about change in blood pressure readings at home. NANCID right knee-planning to have knee replacement next month with Dr Smyth at [facility]
--- OUTSIDE RECORDS SUMMARY | 2017-11-27 08:15 | XMS REPORT | CCD ---
Author Author [facility] Organization [facility] Address [address] [place] [address] Phone Care Team Providers Care Training And Development Assistant Name Role Phone PP Unavailable CCM Unavailable Summary Purpose Interface Exchange Insurance Providers Payer name Policy type / Coverage type Covered constitution party ID Effective Begin Date Effective End Date WPS Medicare Part B [id number] 2014 Unknown [employer] [id number] 2014 Unknown Family history Mother Diagnosis Age At Onset No Family Disease Entered N/A Father Diagnosis Age At Onset No Family Disease Entered N/A Social History Social History Element Codes Description Effective Dates Marital status Unknown 08/18/2011 Employment Unknown 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 08/18/[address]: 201876945 Nonsmoker 08/18/[address]: 794103 Currently drinks alcohol 08/18/2011 Frequency of drinks SNOMED CT: 036086769 Drinks rarely rum occasionally 08/18/2011 Allergies, Adverse [...] Start Date Stop Date Status Fill Instructions diclofenac sodium 75 mg tablet,delayed release RxNorm: 864404 TAKE TWO TABLETS BY MOUTH TWICE A DAY 10/17/2017 02/13/2018 Active hydrocodone 10 mg-acetaminophen 325 mg tablet RxNorm: 298129 1 Tablet(s) PO Q4 PRN TAKE ONE TABLET BY MOUTH EVERY 4 HOURS NEEDED FOR PAIN 09/20/2017 10/19/2017 Active amlodipine 5 mg tablet RxNorm: 899917 TAKE ONE TABLET BY MOUTH DAILY 09/20/2017 03/18/2018 Active mupirocin 2 % topical ointment RxNorm: 838081 1 Application TOP BID 09/16/2017 No Stop Date Active ceftriaxone 500 mg solution for injection RxNorm: 7939639 1 Gram(s) Inj 09/14/2017 09/14/2017 Inactive Cymbalta 30 mg capsule,delayed release RxNorm: 718711 TAKE ONE CAPSULE BY MOUTH DAILY 08/15/2017 11/07/2018 Active clindamycin 300 mg capsule RxNorm: 457103 1 Capsule(s) PO TID 08/10/2017 08/16/2017 Inactive clindamycin 300 mg capsule RxNorm: 371289 1 Capsule(s) PO TID 08/10/2017 08/09/2017 Inactive ceftriaxone 500 mg solution for injection RxNorm: 4974385 Inj 08/09/2017 08/09/2017 Inactive Bactrim DS 800 mg-160 mg tablet RxNorm: 109141 1 Tablet(s) PO BID 08/09/2017 08/15/2017 Inactive ER CHANGED BASED ON CULTURE REPORT trazodone 50 mg tablet RxNorm: 889017 1.5 Tablet(s) PO QHS 02/03/2018 Active Requip 0.5 mg tablet RxNorm: 944397 1 Tablet(s) PO QHS TAKE ONE TABLET BY MOUTH DAILY 08/08/2017 02/03/2018 Active ceftriaxone 500 mg solution for injection RxNorm: 6945014 1 Milliliter(s) Inj 08/08/2017 08/08/2017 Inactive hydrocodone 10 mg-acetaminophen 325 mg tablet RxNorm: 043332 1 Tablet(s) PO Q4 PRN TAKE ONE TABLET BY MOUTH EVERY 4 HOURS NEEDED FOR PAIN 08/08/2017 09/06/2017 Inactive Phenergan-Codeine 6.25 mg-10 mg/5 mL syrup RxNorm: 632130 5 Milliliter(s) PO Q6 as needed cough 07/20/2017 No Stop Date Active trazodone 50 mg tablet RxNorm: 646838 1/2-1 Tablet(s) PO QHS 08/07/2017 Inactive 1/2 TO 1 tablet, NOT 1.5 tablet diclofenac sodium 75 mg tablet,delayed release RxNorm: 357990 TAKE TWO TABLETS BY MOUTH TWICE A DAY 06/28/2017 08/26/2017 Inactive Voltaren 1 % topical gel RxNorm: 192080 APPLY TOPICALLY FOUR TIMES A DAY 06/24/2017 06/18/2018 Active prednisone 20 mg tablet RxNorm: 320971 2 Tablet(s) PO daily 11/201606/20/2017 Inactive ketoconazole 2 % topical cream RxNorm: 768827 1 Application TOP BID 06/21/2017 06/30/2017 Inactive right neck and groin ketoconazole 2 % topical cream RxNorm: 491027 1 Application TOP BID 06/21/2017 06/20/2017 Inactive right neck and groin hydrocodone 10 mg-acetaminophen 325 mg tablet RxNorm: 349684 1 Tablet(s) PO Q4 PRN TAKE ONE TABLET BY MOUTH EVERY 4 HOURS NEEDED FOR PAIN 06/21/2017 07/20/2017 Inactive prednisone 20 mg tablet RxNorm: 228319 2 Tablet(s) PO daily 11/201606/25/2017 Inactive Augmentin 500 mg-125 mg tablet RxNorm: 242532 1 Tablet(s) PO TID 06/13/2017 06/12/2017 Inactive take probiotice BID x7 Augmentin 500 mg-125 mg tablet RxNorm: 020380 1 Tablet(s) PO TID 06/13/2017 06/19/2017 Inactive take probiotice BID x7 triamcinolone acetonide 0.5 % topical cream RxNorm: 6454414 1 Application TOP BID 06/10/2017 06/19/2017 Inactive trazodone 50 mg tablet RxNorm: 511546 1/2-1 Tablet(s) PO QHS 07/13/2017 Inactive hydrocodone 10 mg-acetaminophen 325 mg tablet RxNorm: 045706 1 Tablet(s) PO Q4 PRN TAKE ONE TABLET BY MOUTH EVERY 4 HOURS NEEDED FOR PAIN 04/08/2017 05/07/2017 Inactive Benicar 40 mg tablet RxNorm: 059935 TAKE ONE TABLET BY MOUTH DAILY 03/16/2017 12/10/2017 Active acyclovir 800 mg tablet RxNorm: 013742 TAKE ONE TABLET BY MOUTH FOUR TIMES A DAY 03/16/2017 03/25/2017 Inactive Bactrim DS 800 mg-160 mg tablet RxNorm: 309297 1 Tablet(s) PO BID 03/07/2017 03/13/2017 Inactive Bactrim DS 800 mg-160 mg tablet RxNorm: 867314 1 Tablet(s) PO BID 03/07/2017 03/06/2017 Inactive mupirocin 2 % topical ointment RxNorm: 599324 1 Application TOP BID 03/07/2017 03/06/2017 Inactive mupirocin 2 % topical ointment RxNorm: 809370 1 Application TOP BID 03/07/2017 03/16/2017 Inactive acyclovir 800 mg tablet RxNorm: 785974 1 Tablet(s) PO QID 03/0403/13/2017 Inactive Keflex 500 mg capsule RxNorm: 680604 1 Capsule(s) PO TID 201603/06/2017 Inactive amlodipine 5 mg tablet RxNorm: 623387 TAKE ONE TABLET BY MOUTH DAILY 02/22/2017 08/20/2017 Inactive gabapentin 100 mg capsule RxNorm: 575745 TAKE TWO CAPSULES BY MOUTH EVERY MORNING AND TAKE THREE CAPSULES BY MOUTH EVERY EVENING NEEDED 02/01/2018 Active Macrodantin 50 mg capsule RxNorm: 304891 TAKE ONE CAPSULE BY MOUTH DAILY 02/07/2017 02/01/2018 Active Cymbalta 30 mg capsule,delayed release RxNorm: 311818 TAKE ONE CAPSULE BY MOUTH DAILY 02/07/2017 08/05/2017 Inactive Requip 0.5 mg tablet RxNorm: 251050 TAKE ONE TABLET BY MOUTH DAILY 01/21/2017 02/17/2017 Inactive estradiol 0.5 mg tablet RxNorm: 288787 Tablet(s) TAKE ONE-HALF TABLET BY MOUTH TWO TIMES A DAY 01/18/2017 01/12/2018 Active fenofibrate nanocrystallized 145 mg tablet RxNorm: 308418 TAKE ONE TABLET BY MOUTH DAILY 01/18/2017 01/12/2018 Active Zetia 10 mg tablet RxNorm: 536882 TAKE ONE TABLET BY MOUTH DAILY 01/18/2017 01/12/2018 Active Zetia 10 mg tablet RxNorm: 255632 TAKE ONE TABLET BY MOUTH DAILY 01/18/2017 01/17/2017 Inactive hyoscyamine ER 0.375 mg tablet,extended release,12 hr RxNorm: 5899919 TAKE ONE TABLET BY MOUTH TWICE A DAY 01/10/2017 Inactive Flonase 50 mcg/actuation nasal spray,suspension RxNorm: 9602256 1 [place] NASAL each nare daily 12/17/2016 04/15/2017 Inactive [SAVINGS FOR UNINSURED PATIENTS -- BIN:185566, PCN: ASPROD1, Group: [facility] [place], ID# [id number], Process claim through [employer], for questions: . THIS IS NOT INSURANCE.] Voltaren 1 % topical gel RxNorm: 624877 APPLY TOPICALLY FOUR TIMES A DAY 12/17/2016 03/26/2017 Inactive hydrocodone 10 mg-acetaminophen 325 mg tablet RxNorm: 599543 1 Tablet(s) PO Q4 PRN TAKE ONE TABLET BY MOUTH EVERY 4 HOURS NEEDED FOR PAIN 12/17/2016 01/15/2017 Inactive (Appended: Controlled substance eRx refill - RxReferenceNumber: [id number]) diclofenac sodium 75 mg tablet,delayed release RxNorm: 058357 TAKE TWO TABLETS BY MOUTH TWICE A DAY 11/22/2016 05/20/2017 Inactive Cymbalta 30 mg capsule,delayed release RxNorm: 942481 TAKE ONE CAPSULE BY MOUTH DAILY 11/22/2016 02/06/2017 Inactive albuterol sulfate 2.5 mg/0.5 mL solution for nebulization RxNorm: 113459 3 Milliliter(s) INH Q4 PRN 11/11/2016 No Stop Date Active Levaquin 500 mg tablet RxNorm: 705193 1 Tablet(s) PO daily 11/15/2016 Inactive Zetia 10 mg tablet RxNorm: 687429 TAKE ONE TABLET BY MOUTH DAILY 10/21/2016 10/27/2016 Inactive fenofibrate nanocrystallized 145 mg tablet RxNorm: 797204 TAKE ONE TABLET BY MOUTH DAILY 10/21/2016 01/17/2017 Inactive estradiol 0.5 mg tablet RxNorm: 440104 TAKE ONE-HALF TABLET BY MOUTH TWO TIMES A DAY 10/20/2016 01/17/2017 Inactive Kenalog 40 mg/mL suspension for injection RxNorm: 1652541 Milliliter(s) Inj 09/27/2016 09/27/2016 Inactive hydrocodone 10 mg-acetaminophen 325 mg tablet RxNorm: 475903 1 Tablet(s) PO Q4 PRN TAKE ONE TABLET BY MOUTH EVERY 4 HOURS NEEDED FOR PAIN 09/21/2016 10/20/2016 Inactive (Appended: Controlled substance eRx refill - RxReferenceNumber: [id number]) Flonase 50 mcg/actuation nasal spray,suspension RxNorm: 4801993 1 [place] NASAL each nare daily 09/03/2016 12/16/2016 Inactive [SAVINGS FOR UNINSURED PATIENTS -- BIN:182732, PCN: ASPROD1, Group: [id number], ID# [id number], Process claim through [employer], for questions: . THIS IS NOT INSURANCE.] amlodipine 5 mg tablet RxNorm: 637685 TAKE ONE TABLET BY MOUTH DAILY 08/19/2016 02/14/2017 Inactive Cymbalta 30 mg capsule,delayed release RxNorm: 747008 TAKE ONE CAPSULE BY MOUTH DAILY 08/17/2016 11/21/2016 Inactive Requip 0.5 mg tablet RxNorm: 485848 TAKE ONE TABLET BY MOUTH DAILY 07/22/2016 07/31/2016 Inactive scopolamine 1.5 mg transdermal patch (1 mg over 3 days) RxNorm: 174454 2 Patch TD q 3 days 07/09/2016 No Stop Date Active scopolamine 1.5 mg transdermal patch (1 mg over 3 days) RxNorm: 284216 2 Patch TD q 3 days 07/09/2016 07/08/2016 Inactive hydrocodone 10 mg-acetaminophen 325 mg tablet RxNorm: 073159 1 Tablet(s) PO Q4 PRN TAKE ONE TABLET BY MOUTH EVERY 4 HOURS NEEDED FOR PAIN 05/20/2016 06/18/2016 Inactive (Appended: Controlled substance eRx refill - RxReferenceNumber: [id number]) Cymbalta 30 mg capsule,delayed release RxNorm: 125246 1 Capsule(s) PO daily 05/20/2016 05/20/2016 Inactive fenofibrate nanocrystallized 145 mg tablet RxNorm: 241066 1 Tablet(s) PO daily 04/29/2016 10/20/2016 Inactive estradiol 0.5 mg tablet RxNorm: 377832 TAKE ONE-HALF TABLET BY MOUTH TWO TIMES A DAY 04/27/2016 10/19/2016 Inactive Zetia 10 mg tablet RxNorm: 507185 TAKE ONE TABLET BY MOUTH DAILY 04/16/2016 10/12/2016 Inactive diclofenac sodium 75 mg tablet,delayed release RxNorm: 434991 2 Tablet(s) PO BID 03/25/2016 07/22/2016 Inactive Benicar 40 mg tablet RxNorm: 169366 1 Tablet(s) PO daily 201503/15/2017 Inactive ok to dispense generic if available hydrocodone 10 mg-acetaminophen 325 mg tablet RxNorm: 375955 1 Tablet(s) PO Q4 PRN TAKE ONE TABLET BY MOUTH EVERY 4 HOURS NEEDED FOR PAIN 03/25/2016 04/23/2016 Inactive (Appended: Controlled substance eRx refill - RxReferenceNumber: [id number]) amlodipine 5 mg tablet RxNorm: 094913 TAKE ONE TABLET BY MOUTH DAILY 02/09/2016 08/06/2016 Inactive Benicar 40 mg tablet RxNorm: 279325 1 Tablet(s) PO daily 201503/24/2016 Inactive ok to dispense generic if available hydrocodone 10 mg-acetaminophen 325 mg tablet RxNorm: 488834 1 Tablet(s) PO Q4 PRN TAKE ONE TABLET BY MOUTH EVERY 4 HOURS NEEDED FOR PAIN 01/26/2016 03/24/2016 Inactive (Appended: Controlled substance eRx refill - RxReferenceNumber: [id number]) gabapentin 100 mg capsule RxNorm: 932008 TAKE TWO CAPSULES BY MOUTH EVERY MORNING AND TAKE THREE CAPSULES BY MOUTH EVERY EVENING NEEDED 11/201502/06/2017 Inactive Zetia 10 mg tablet RxNorm: 664794 TAKE ONE TABLET BY MOUTH DAILY 01/20/2016 04/15/2016 Inactive hyoscyamine ER 0.375 mg tablet,extended release,12 hr RxNorm: 3291397 TAKE ONE TABLET BY MOUTH TWICE A DAY 12/30/201505/2016 Inactive Voltaren 1 % topical gel RxNorm: 301505 APPLY TOPICALLY FOUR TIMES A DAY 12/09/2015 08/04/2016 Inactive doxycycline hyclate 100 mg capsule RxNorm: 3805418 1 Capsule(s) PO BID 11/12/2015 11/21/2015 Inactive Macrodantin 50 mg capsule RxNorm: 046113 1 Capsule(s) PO daily 11/07/2015 01/29/2017 Inactive [SAVINGS FOR UNINSURED PATIENTS -- BIN:788006, PCN: ASPROD1, Group: [facility], ID# [id number], Process claim through [employer], for questions: [phone]. THIS IS NOT INSURANCE.] Requip 0.5 mg tablet RxNorm: 683260 1 Tablet(s) PO daily TAKE ONE TABLET BY MOUTH DAILY 11/06/2015 07/21/2016 Inactive Mobic 15 mg tablet RxNorm: 986887 TAKE ONE TABLET BY MOUTH EVERY DAY 10/21/2015 01/25/2016 Inactive estradiol 0.5 mg tablet RxNorm: 344569 TAKE ONE-HALF TABLET BY MOUTH TWO TIMES A DAY 10/20/2015 04/16/2016 Inactive hydrocodone 10 mg-acetaminophen 325 mg tablet RxNorm: 237639 1 Tablet(s) PO Q4 PRN TAKE ONE TABLET BY MOUTH EVERY 4 HOURS NEEDED FOR PAIN 09/29/2015 11/27/2015 Inactive (Appended: Controlled substance eRx refill - RxReferenceNumber: [id number]) Benicar 40 mg tablet RxNorm: 413756 1 Tablet(s) PO daily 201501/25/2016 Inactive [SAVINGS FOR NON-COVERED DRUGS -- BIN:717598, PCN: ASPROD1, Group: XXXXX, ID # [id number], Questions: . THIS IS NOT INSURANCE.] Benicar 40 mg tablet RxNorm: 956881 1/2 Tablet(s) PO daily 09/22/2015 Inactive [SAVINGS FOR NON-COVERED DRUGS -- BIN:470134, PCN: ASPROD1, Group: XXXXX, ID# [id number], Questions: . THIS IS NOT INSURANCE.] scopolamine 1.5 mg transdermal patch (1 mg over 3 days) RxNorm: 169142 1 Patch TD q72 hours 09/09/2015 05/18/2016 Inactive scopolamine 1.5 mg transdermal patch (1 mg over 3 days) RxNorm: 149087 1 TD q72 hours 09/09/2015 09/08/2015 Inactive Requip 0.5 mg tablet RxNorm: 266169 1 Tablet(s) PO daily TAKE ONE TABLET BY MOUTH DAILY 08/22/2015 11/05/2015 Inactive hydrocodone 10 mg-acetaminophen 325 mg tablet RxNorm: 094543 1 Tablet(s) PO Q4 PRN TAKE ONE TABLET BY MOUTH EVERY 4 HOURS NEEDED FOR PAIN 08/22/2015 09/28/2015 Inactive (Appended: Controlled substance eRx refill - RxReferenceNumber: [id number]) fenofibrate nanocrystallized 145 mg tablet RxNorm: 620172 1 Tablet(s) PO daily 08/22/2015 02/17/2016 Inactive amlodipine 5 mg tablet RxNorm: 212553 1 Tablet(s) PO daily 12/201402/08/2016 Inactive gabapentin 100 mg capsule RxNorm: 574566 Capsule(s) PO TAKE THREE CAPSULE PO IN THE AM, 1 AT NOON AND 3 PO IN THE PIOTR 07/21/2015 No Stop Date Active [SAVINGS FOR NON-COVERED DRUGS -- BIN:163513, PCN: ASPROD1, Group: XXXXX, ID# [id number], Questions: . THIS IS NOT INSURANCE.] Zetia 10 mg tablet RxNorm: 359301 1 Tablet(s) PO daily 201401/16/2016 Inactive hydrocodone 10 mg-acetaminophen 325 mg tablet RxNorm: 000397 1 Tablet(s) PO Q4 PRN TAKE ONE TABLET BY MOUTH EVERY 4 HOURS NEEDED FOR PAIN 07/21/2015 08/21/2015 Inactive (Appended: Controlled substance eRx refill - RxReferenceNumber: [id number]) Requip 0.5 mg tablet RxNorm: 539907 TAKE ONE TABLET BY MOUTH DAILY 06/24/2015 08/21/2015 Inactive Benicar 40 mg tablet RxNorm: 285225 1/2 Tablet(s) PO daily 11/201409/14/2015 Inactive [SAVINGS FOR NON-COVERED DRUGS -- BIN:241831, PCN: ASPROD1, Group: XXXXX, ID# [id number], Questions: . THIS IS NOT INSURANCE.] hydrocodone 10 mg-acetaminophen 325 mg tablet RxNorm: 341158 1 Tablet(s) PO Q4 PRN TAKE ONE TABLET BY MOUTH EVERY 4 HOURS NEEDED FOR PAIN 04/28/2015 06/26/2015 Inactive (Appended: Controlled substance eRx refill - RxReferenceNumber: [id number]) estradiol 0.5 mg tablet RxNorm: 542890 TAKE ONE-HALF TABLET BY MOUTH TWO TIMES A DAY 04/21/2015 10/17/2015 Inactive Mobic 15 mg tablet RxNorm: 001604 TAKE ONE TABLET BY MOUTH EVERY DAY 03/27/2015 09/22/2015 Inactive hydrochlorothiazide 25 mg tablet RxNorm: 001901 1 Tablet(s) PO daily 03/10/2015 03/09/2015 Inactive hydrochlorothiazide 25 mg tablet RxNorm: 296161 1 Tablet(s) PO daily 03/10/2015 03/23/2015 Inactive hydrocodone 10 mg-acetaminophen 325 mg tablet RxNorm: 060696 1 Tablet(s) PO Q4 PRN TAKE ONE TABLET BY MOUTH EVERY 4 HOURS NEEDED FOR PAIN 01/24/2015 03/24/2015 Inactive (Appended: Controlled substance eRx refill - RxReferenceNumber: [id number]) gabapentin 100 mg capsule RxNorm: 459410 Capsule(s) PO TAKE TWO CAPSULE PO IN THE AM AND 3 PO IN THE PIOTR PRN 01/17/201509/2014 Inactive [SAVINGS FOR NON-COVERED DRUGS -- BIN:645867, PCN: ASPROD1, Group: XXXXX, ID# [id number], Questions: [phone]. THIS IS NOT INSURANCE.] Requip 0.5 mg tablet RxNorm: 142473 TAKE ONE TABLET BY MOUTH EVERY DAY 01/16/2015 05/15/2015 Inactive Requip 0.5 mg tablet RxNorm: 520269 TAKE ONE TABLET BY MOUTH EVERY DAY 01/16/2015 01/15/2015 Inactive Requip 0.5 mg tablet RxNorm: 265824 TAKE ONE TABLET BY MOUTH EVERY DAY 01/16/2015 01/15/2015 Inactive estradiol 0.5 mg tablet RxNorm: 530553 TAKE ONE-HALF TABLET BY MOUTH TWO TIMES A DAY 01/14/2015 04/13/2015 Inactive Benicar 40 mg tablet RxNorm: 795043 1/2 Tablet(s) PO daily 02/201505/21/2015 Inactive [SAVINGS FOR NON-COVERED DRUGS -- BIN:124956, PCN: ASPROD1, Group: XXXXX, ID# [id number], Questions: . THIS IS NOT INSURANCE.] Cymbalta 30 mg capsule,delayed release RxNorm: 139494 1 Capsule(s) PO daily 12/23/2014 05/19/2016 Inactive [SAVINGS FOR NON-COVERED DRUGS -- BIN:233557, PCN: ASPROD1, Group: XXXXX, ID# [id number], Questions: . THIS IS NOT INSURANCE.] Benicar 40 mg tablet RxNorm: 215931 1 Tablet(s) PO daily 201412/22/2014 Inactive [SAVINGS FOR UNINSURED PATIENTS -- BIN:428593, PCN: ASPROD1, Group: [facility], ID # [id number], Process claim through [employer], for questions: . THIS IS NOT INSURANCE.] hydrocodone 10 mg-acetaminophen 325 mg tablet RxNorm: 111805 Tablet(s) PO TAKE ONE TABLET BY MOUTH EVERY 4 HOURS NEEDED FOR PAIN 201401/23/2015 Inactive (Appended: Controlled substance eRx refill - RxReferenceNumber: [id number]) Flonase 50 mcg/actuation nasal spray,suspension RxNorm: 905782 1 [place] NASAL each nare daily 11/04/2014 11/03/2014 Inactive Keflex 500 mg capsule RxNorm: 254774 1 Capsule(s) PO QID 201411/03/2014 Inactive take probiotic while on ABT Keflex 500 mg capsule RxNorm: 054078 1 Capsule(s) PO QID 201411/10/2014 Inactive take probiotic while on ABT [SAVINGS FOR UNINSURED PATIENTS -- BIN:522628, PCN: ASPROD1, Group: [facility], ID# [id number], Process claim through [employer], for questions: . THIS IS NOT INSURANCE.] Flonase 50 mcg/actuation nasal spray,suspension RxNorm: 1725108 1 [place] NASAL each nare daily 11/04/2014 01/02/2015 Inactive [SAVINGS FOR UNINSURED PATIENTS -- BIN:063716, PCN: ASPROD1, Group: [facility], ID# [id number], Process claim through [employer], for questions: . THIS IS NOT INSURANCE.] Benicar 40 mg tablet RxNorm: 856691 1 Tablet(s) PO daily 201411/05/2014 Inactive [SAVINGS FOR UNINSURED PATIENTS -- BIN:940659, PCN: ASPROD1, Group: [facility], ID # [id number], Process claim through [employer], for questions: . THIS IS NOT INSURANCE.] Benicar 40 mg tablet RxNorm: 866906 TAKE ONE TABLET BY MOUTH DAILY 10/28/2014 01/25/2015 Inactive hyoscyamine ER 0.375 mg tablet,extended release,12 hr RxNorm: 4060992 1 Tablet(s) PO BID 10/08/2014 12/29/2015 Inactive [SAVINGS FOR UNINSURED PATIENTS -- BIN:681934 , PCN: ASPROD1, Group: [facility], ID# [id number], Process claim through [employer], for questions: . THIS IS NOT INSURANCE.] Macrodantin 50 mg capsule RxNorm: 665162 1 Capsule(s) PO daily 10/08/2014 11/06/2015 Inactive [SAVINGS FOR UNINSURED PATIENTS -- BIN:237256, PCN: ASPROD1, Group: [facility], ID# [id number], Process claim through [employer], for questions: [phone]. THIS IS NOT INSURANCE.] Benicar 40 mg tablet RxNorm: 582579 1 Tablet(s) PO daily 201409/29/2014 Inactive Benicar 40 mg tablet RxNorm: 546743 1 Tablet(s) PO daily 201410/27/2014 Inactive [SAVINGS FOR UNINSURED PATIENTS -- BIN:163135, PCN: ASPROD1, Group: [facility], ID # [id number], Process claim through [employer], for questions: . THIS IS NOT INSURANCE.] Cipro 500 mg tablet RxNorm: 530552 1 Tablet(s) PO BID 201410/06/2014 Inactive [SAVINGS FOR UNINSURED PATIENTS -- BIN:556263, PCN: ASPROD1, Group: [facility], ID # [id number], Process claim through [employer], for questions: . THIS IS NOT INSURANCE.] Flagyl 500 mg tablet RxNorm: 282598 1 Tablet(s) PO TID 201410/06/2014 Inactive [SAVINGS FOR UNINSURED PATIENTS -- BIN:139063, PCN: ASPROD1, Group: [facility], ID # [id number], Process claim through [employer], for questions: . THIS IS NOT INSURANCE.] estradiol 0.5 mg tablet RxNorm: 518032 1/2 Tablet(s) PO BID 02/201512/22/2014 Inactive [SAVINGS FOR UNINSURED PATIENTS -- BIN:838380, PCN: ASPROD1, Group: [facility] , ID# [id number], Process claim through [employer], for questions: . THIS IS NOT INSURANCE.] Bystolic 10 mg tablet RxNorm: 397101 1 Tablet(s) PO BID 201410/07/2014 Inactive [SAVINGS FOR UNINSURED PATIENTS -- BIN:292462, PCN: ASPROD1, Group: [facility], ID # [id number], Process claim through [employer], for questions: . THIS IS NOT INSURANCE.] hydrochlorothiazide 25 mg tablet RxNorm: 590295 TAKE ONE TABLET BY MOUTH EVERY DAY 08/19/2014 12/22/2014 Inactive hydrochlorothiazide 25 mg tablet RxNorm: 512354 1 Tablet(s) PO daily 08/19/2014 11/26/2014 Inactive [SAVINGS FOR UNINSURED PATIENTS -- BIN:805062, PCN: ASPROD1, Group: [facility], ID# [id number], Process claim through [employer], for questions: [phone]. THIS IS NOT INSURANCE.] hydrocodone 10 mg-acetaminophen 325 mg tablet RxNorm: 962358 Tablet(s) PO TAKE ONE TABLET BY MOUTH EVERY 4 HOURS NEEDED FOR PAIN 201311/05/2014 Inactive (Appended: Controlled substance eRx refill - RxReferenceNumber: [id number]) Requip 0.5 mg tablet RxNorm: 701411 TAKE ONE TABLET BY MOUTH EVERY DAY 07/03/2014 11/29/2014 Inactive hydrocodone 10 mg-acetaminophen 325 mg tablet RxNorm: 354406 Tablet(s) PO TAKE ONE TABLET BY MOUTH EVERY 4 HOURS NEEDED FOR PAIN 201307/25/2014 Inactive (Appended: Controlled substance eRx refill - RxReferenceNumber: [id number]) Mobic 15 mg tablet RxNorm: 811828 TAKE ONE TABLET BY MOUTH EVERY DAY 06/11/2014 03/07/2015 Inactive Klor-Con 10 mEq tablet,extended release RxNorm: 870546 TAKE 4 TABLETS ONCE DAILY 03/11/2014 03/23/2015 Inactive hydrocodone 10 mg-acetaminophen 325 mg tablet RxNorm: 506597 Tablet(s) PO TAKE ONE TABLET BY MOUTH EVERY 4 HOURS NEEDED FOR PAIN 201306/12/2014 Inactive (Appended: Controlled substance eRx refill - RxReferenceNumber: [id number]) hydrocodone 10 mg-acetaminophen 325 mg tablet RxNorm: 0103390 1 Tablet(s) PO Q4 PRN 02/05/2014 05/05/2014 Inactive Zithromax Z-Rangel 250 mg tablet RxNorm: 081198 Tablet(s) PO UD No Stop Date Active Flagyl 500 mg tablet RxNorm: 335448 1 Tablet(s) PO TID 201301/16/2014 Inactive Cipro 500 mg tablet RxNorm: 568670 1 Tablet(s) PO BID 201301/16/2014 Inactive Cipro 500 mg tablet RxNorm: 595546 1 Tablet(s) PO BID 201301/06/2014 Inactive Requip 0.5 mg tablet RxNorm: 910386 Tablet(s) PO TAKE ONE TABLET BY MOUTH EVERY DAY 12/25/2013 07/02/2014 Inactive zolpidem 5 mg tablet RxNorm: 917692 Tablet(s) PO TAKE ONE TABLET BY MOUTH AT BEDTIME NEEDED 11/26/2013 No Stop Date Active (Appended: Controlled substance eRx refill - RxReferenceNumber: [id number]) zolpidem 5 mg tablet RxNorm: 347804 1 Tablet(s) PO HS PRN 11/2611/26/2013 Inactive Klor-Con 10 mEq tablet,extended release RxNorm: 248901 Tablet(s) PO TAKE 4 TABLETS ONCE DAILY 11/05/2013 03/10/2014 Inactive Nasonex 50 mcg/actuation [place] RxNorm: 004876 2 [place] NASAL daily 2 sprays each nare once daily 10/30/2013 No Stop Date Active Requip 0.5 mg tablet RxNorm: 747158 1 Tablet(s) PO daily 201312/24/2013 Inactive Mobic 15 mg tablet RxNorm: 008730 1 Tablet(s) PO daily 201302/26/2014 Inactive Voltaren 1 % topical gel RxNorm: 592986 1 Application TOP QID 10/30/2013 11/23/2014 Inactive ketorolac 60 mg/2 mL intramuscular solution RxNorm: 243122 2 Milliliter(s) IM 10/30/2013 10/30/2013 Inactive nystatin 100,000 unit/gram topical powder RxNorm: 884038 1 Application TOP BID 10/30/2013 11/12/2013 Inactive Flagyl 500 mg tablet RxNorm: 205883 1 Tablet(s) PO TID 201311/08/2013 Inactive promethazine 25 mg/mL injection solution RxNorm: 296854 1 Milliliter(s) Inj 10/30/2013 10/30/2013 Inactive Diflucan 150 mg tablet RxNorm: 943735 1 Tablet(s) PO daily 10/10/2013 Inactive Diflucan 150 mg tablet RxNorm: 709446 1 Tablet(s) PO daily 10/03/2013 Inactive metformin 500 mg tablet RxNorm: 365281 1/2 Tablet(s) PO QHS 03/201410/30/2013 Inactive nystatin 100,000 unit/gram topical powder RxNorm: 418573 1 Application TOP BID 09/25/2013 10/08/2013 Inactive Bystolic 5 mg tablet RxNorm: 300778 Tablet(s) PO 09/24/2013 09/18/2014 Inactive 2 q am (10mg)1 q piotr (5mg ) Zithromax Z-Rangel 250 mg tablet RxNorm: 061688 Tablet(s) PO UD No Stop Date Active Flexeril 5 mg tablet RxNorm: 406724 1 Tablet(s) PO Q8 PRN TAKE ONE TABLET BY MOUTH EVERY 8 HOURS NEEDED 09/10/2013 No Stop Date Active hydrocodone 10 mg-acetaminophen 325 mg tablet RxNorm: 307580 1 Tablet(s) PO Q4 PRN 09/10/2013 02/05/2014 Inactive Macrobid 100 mg capsule RxNorm: 696243 1 Capsule(s) PO BID 09/19/2013 Inactive zolpidem 5 mg tablet RxNorm: 849651 1 Tablet(s) PO HS PRN 08/2411/21/2013 Inactive simvastatin 20 mg tablet RxNorm: 276080 1 Tablet(s) PO QHS TAKE ONE TABLET BY MOUTH AT BEDTIME 08/24/2013 08/18/2014 Inactive Requip 0.5 mg tablet RxNorm: 807511 1/2 Tablet(s) PO daily 1/2 tab PO qhs x 1 week , then increase to full tablet PO qhs 08/23/2013 08/22/2013 Inactive iron 325 mg (65 mg iron) tablet RxNorm: 107528 1 Tablet(s) PO Mon Wed Frid take with orange juice 08/23/2013 01/19/2014 Inactive iron 325 mg (65 mg iron) tablet RxNorm: 450492 1 Tablet(s) PO Tue Fri take with orange juice 08/23/2013 08/22/2013 Inactive Requip 0.5 mg tablet RxNorm: 723560 1/2 Tablet(s) PO daily 1/2 tab PO qhs x 1 week , then increase to full tablet PO qhs 08/23/2013 10/21/2013 Inactive hydrochlorothiazide 25 mg tablet RxNorm: 607357 1 Tablet(s) PO daily 08/02/2013 04/28/2014 Inactive Kenalog 40 mg/mL Susp for Injection RxNorm: 4068648 2 Milliliter(s) Inj 07/06/2013 07/06/2013 Inactive Zithromax Z-Rangel 250 mg tablet RxNorm: 438328 Tablet(s) PO UD No Stop Date Active zolpidem 5 mg tablet RxNorm: 624863 1 Tablet(s) PO HS PRN 05/3108/23/2013 Inactive simvastatin 20 mg tablet RxNorm: 385096 Tablet(s) PO TAKE ONE TABLET BY MOUTH AT BEDTIME 05/17/2013 08/23/2013 Inactive zolpidem 5 mg tablet RxNorm: 399248 1 Tablet(s) PO HS PRN 05/1705/30/2013 Inactive hydrocodone 10 mg-acetaminophen 325 mg tablet RxNorm: 8791393 1 Tablet(s) PO Q4 PRN 05/17/2013 08/14/2013 Inactive zolpidem 5 mg tablet RxNorm: 255181 1 Tablet(s) PO HS PRN 04/0405/03/2013 Inactive hydrocodone 10 mg-acetaminophen 325 mg tablet RxNorm: 2975956 1 Tablet(s) PO Q4 PRN 04/04/2013 05/16/2013 Inactive Voltaren 1 % topical gel RxNorm: 842898 1 Application TOP QID 04/04/2013 10/29/2013 Inactive gabapentin 100 mg capsule RxNorm: 419253 Capsule(s) PO TAKE ONE CAPSULE BY MOUTH TWICE A DAY 03/05/2013 07/21/2014 Inactive zolpidem 5 mg tablet RxNorm: 103205 1 Tablet(s) PO HS PRN 02/0804/03/2013 Inactive Flexeril 5 mg tablet RxNorm: 642086 1 Tablet(s) PO Q8 PRN TAKE ONE TABLET BY MOUTH EVERY 8 HOURS NEEDED 02/07/2013 09/10/2013 Inactive hydrocodone 10 mg-acetaminophen 325 mg tablet RxNorm: 5429735 1 Tablet(s) PO Q4 PRN 02/07/2013 04/03/2013 Inactive Celebrex 200 mg capsule RxNorm: 158173 1 Capsule(s) PO BID TAKE ONE CAPSULE BY MOUTH TWICE A DAY 02/07/2013 10/30/2013 Inactive zolpidem 5 mg tablet RxNorm: 288578 1 Tablet(s) PO HS PRN 01/1102/07/2013 Inactive Flexeril 5 mg tablet RxNorm: 744759 Tablet(s) PO TAKE ONE TABLET BY MOUTH EVERY 8 HOURS NEEDED 01/04/2013 02/06/2013 Inactive hydrocodone 10 mg-acetaminophen 325 mg tablet RxNorm: 8316775 1 Tablet(s) PO Q4 PRN 01/04/2013 02/06/2013 Inactive Flexeril 5 mg tablet RxNorm: 099767 1 Tablet(s) PO Q8 PRN 01/04 No Stop Date Active Nasonex 50 mcg/actuation [place] RxNorm: 019579 2 [place] NASAL 2 sprays each nare once daily 01/04/2013 10/29/2013 Inactive Klor-Con 10 mEq tablet,extended release RxNorm: 921278 Tablet(s) PO TAKE 4 TABLETS ONCE DAILY 12/18/2012 11/04/2013 Inactive simvastatin 20 mg tablet RxNorm: 007695 Tablet(s) PO TAKE ONE TABLET BY MOUTH AT BEDTIME 12/06/2012 05/16/2013 Inactive gabapentin 100 mg capsule RxNorm: 395786 1 Capsule(s) PO BID 03/03/2013 Inactive gabapentin 100 mg capsule RxNorm: 441641 1 Capsule(s) PO BID 12/03/2012 Inactive amoxicillin 500 mg tablet RxNorm: 249047 1 Tablet(s) PO TID 12/03/2012 Inactive amoxicillin 500 mg tablet RxNorm: 593877 1 Tablet(s) PO TID 12/08/2012 Inactive zolpidem 5 mg tablet RxNorm: 384968 1 Tablet(s) PO HS PRN 11/0801/06/2013 Inactive hydrocodone 10 mg-acetaminophen 325 mg tablet RxNorm: 2804031 1 Tablet(s) PO Q4 PRN 11/08/2012 01/03/2013 Inactive Celebrex 200 mg capsule RxNorm: 471282 Capsule(s) PO TAKE ONE CAPSULE BY MOUTH TWICE A DAY 11/08/2012 02/06/2013 Inactive gabapentin 100 mg capsule RxNorm: 950617 1 Capsule(s) PO BID 11/06/2012 Inactive gabapentin 100 mg capsule RxNorm: 787663 1 Capsule(s) PO BID 12/03/2012 Inactive Bystolic 5 mg tablet RxNorm: 743039 Tablet(s) PO 07/19/2012 07/18/2012 Inactive 2 q am (10mg)1 q piotr (5mg ) Bystolic 5 mg tablet RxNorm: 022280 Tablet(s) PO 07/19/2012 07/13/2013 Inactive 2 q am (10mg)1 q piotr (5mg ) hydrocodone-acetaminophen 10 mg-325 mg tablet RxNorm: 4373368 1 Tablet(s) PO Q4 PRN 07/12/2012 10/09/2012 Inactive hydrochlorothiazide 25 mg tablet RxNorm: 931592 1 Tablet(s) PO daily 07/12/2012 07/06/2013 Inactive Bystolic 10 mg tablet RxNorm: 815478 1 Tablet(s) PO daily 201107/18/2012 Inactive Lasix 20 mg tablet RxNorm: 813238 1 Tablet(s) PO PRN Take an extra potassium when taking lasix 07/12/2012 05/19/2016 Inactive Influenza Virus Vaccine 0.5 mL RxNorm: IM 06/28/2012 06/28/2012 Inactive Pneumovax 23 25 mcg/0.5 mL Injection RxNorm: 492516 Milliliter(s) Inj 06/28/2012 06/28/2012 Inactive Lasix 20 mg tablet RxNorm: 439308 1 Tablet(s) PO PRN Take an extra potassium when taking lasix 06/28/2012 07/11/2012 Inactive Flexeril 5 mg tablet RxNorm: 753023 1 Tablet(s) PO Q8 PRN 06/2009/17/2012 Inactive Flexeril 5 mg tablet RxNorm: 702557 1 Tablet(s) PO Q8 PRN 06/1506/19/2012 Inactive hydrochlorothiazide 25 mg tablet RxNorm: 575513 1 Tablet(s) PO daily 06/08/2012 07/07/2012 Inactive hydrocodone-acetaminophen 5 mg-500 mg capsule RxNorm: 059201 1 Capsule(s) PO Q6 PRN 06/08/2012 06/27/2012 Inactive hydrochlorothiazide 25 mg tablet RxNorm: 254549 1 Tablet(s) PO daily 06/08/2012 06/07/2012 Inactive Bystolic 10 mg tablet RxNorm: 526963 1 Tablet(s) PO daily 201107/11/2012 Inactive Lasix 20 mg tablet RxNorm: 969048 1 Tablet(s) PO PRN Take 1 tab daily x 5 days then daily PRN swelling. Take an extra potassium when taking potassium 05/10/2012 06/27/2012 Inactive hydrocodone-acetaminophen 5 mg-500 mg capsule RxNorm: 032020 1 Capsule(s) PO Q6 PRN 05/09/2012 06/07/2012 Inactive Flexeril 5 mg tablet RxNorm: 842727 1 Tablet(s) PO Q8 PRN 04/0706/14/2012 Inactive hydrocodone-acetaminophen 5 mg-500 mg capsule RxNorm: 926051 1 Capsule(s) PO Q6 PRN 03/30/2012 05/08/2012 Inactive Voltaren 1 % Topical Gel RxNorm: 420844 1 Application TOP QID 03/23/2012 09/18/2012 Inactive Voltaren 1 % Topical Gel RxNorm: 879252 1 Application TOP QID 03/23/2012 03/22/2012 Inactive Celebrex 200 mg capsule RxNorm: 622872 1 Capsule(s) PO BID 12/201111/07/2012 Inactive hydrocodone-acetaminophen 5 mg-500 mg Cap RxNorm: 685886 1 Capsule(s) PO Q6 PRN 02/15/2012 03/29/2012 Inactive hydrochlorothiazide 25 mg Tab RxNorm: 828992 1 Tablet(s) PO daily 02/02/2012 05/24/2012 Inactive Flagyl 500 mg Tab RxNorm: 003614 1 Tablet(s) PO TID 201102/01/2012 Inactive Flagyl 500 mg Tab RxNorm: 479001 1 Tablet(s) PO TID 201105/24/2012 Inactive hydrochlorothiazide 25 mg Tab RxNorm: 767822 1 Tablet(s) PO daily 02/02/2012 02/01/2012 Inactive Diflucan 150 mg Tab RxNorm: 029870 1 Tablet(s) PO daily 201105/24/2012 Inactive simvastatin 20 mg tablet RxNorm: 029755 1 Tablet(s) PO QHS 12/201112/05/2012 Inactive hydrocodone-acetaminophen 5 mg-500 mg Cap RxNorm: 495319 1 Capsule(s) PO Q6 PRN 01/20/2012 02/15/2012 Inactive Flagyl 500 mg Tab RxNorm: 989423 1 Tablet(s) PO TID 201101/04/2012 Inactive Macrobid 100 mg capsule RxNorm: 980444 1 Capsule(s) PO BID 07/201201/07/2012 Inactive lactobacillus acidophilus Chewable Tab RxNorm: 1 Tablet(s) PO BID 12/29/2011 05/24/2012 Inactive hydrocodone-acetaminophen 5 mg-500 mg Cap RxNorm: 223169 1 Capsule(s) PO Q6 PRN 12/27/2011 01/19/2012 Inactive hydrocodone-acetaminophen 5 mg-500 mg Cap RxNorm: 981646 1 Capsule(s) PO Q6 PRN 12/07/2011 12/26/2011 Inactive hydrochlorothiazide 50 mg Tab RxNorm: 398883 1 Tablet(s) PO daily 11/11/2011 05/24/2012 Inactive hydrocodone-acetaminophen 5 mg-500 mg Cap RxNorm: 893258 1 Capsule(s) PO Q6 PRN 10/27/2011 12/06/2011 Inactive Klor-Con 10 mEq tablet,extended release RxNorm: 855650 4 Tablet(s) PO daily 09/28/2011 06/23/2012 Inactive ketorolac 60 mg/2 mL IM RxNorm: 435349 2 Milliliter(s) IM 08/3108/31/2011 Inactive Klor-Con 10 10 mEq Tab RxNorm: 072328 4 Tablet(s) PO daily 04/201109/27/2011 Inactive Kenalog 40 mg/mL Susp for Injection RxNorm: 3066861 1.5 Milliliter(s) Inj 08/18/2011 08/18/2011 Inactive prednisone 10 mg Tab RxNorm: 568304 Tablet(s) PO 08/17/2011 08/22/2011 Inactive 6-5-4 -3-2-1 Celebrex 200 mg Cap RxNorm: 871685 1 Capsule(s) PO BID 201002/20/2012 Inactive simvastatin 20 mg Tab RxNorm: 881861 1 Tablet(s) PO 07/22/2011 01/20/2012 Inactive Rocephin 500 mg Solution for Injection RxNorm: 705212 1 Milliliter(s) Inj as doctor directed 05/21/2011 05/21/2011 Inactive Advair Diskus 250 mcg-50 mcg/dose powder for inhalation RxNorm: 5152260 2 Puff(s) INH BID No Start Date Active Vitamin D-3 Oral RxNorm: Oral No Start Date Active Diflucan 150 mg tablet RxNorm: 772406 1 Tablet(s) PO every other day No Start Date 01/06/2014 Inactive Klor-Con 10 10 mEq Tab RxNorm: 555604 1 Tablet(s) PO daily No Start Date 08/25/2011 Inactive nystatin-triamcinolone 100,000 unit/g-0.1 % Topical Cream RxNorm: 6631545 1 Application TOP TID No Start Date 2012 Inactive Bystolic 10 mg tablet RxNorm: 815713 1 Tablet(s) PO daily No Start Date 2012 Inactive Nasonex 50 mcg/actuation [place] RxNorm: 630126 2 [place] NASAL 2 sprays each nare once daily No Start Date 01/03/2013 Inactive naproxen 500 mg Tab RxNorm: 889110 1 Tablet(s) PO BID No Start Date 12/28/2011 Inactive mupirocin 2 % topical ointment RxNorm: 846770 1 Application TOP BID No Start Date 09/15/2017 Inactive Lasix 20 mg tablet RxNorm: 909752 1 Tablet(s) PO PRN Take 1 tab daily x 5 days then daily PRN swelling. Take an extra potassium when taking potassium No Start Date 05/09/2012 Inactive Flexeril 5 mg tablet RxNorm: 530226 1 Tablet(s) PO Q8 PRN No Start Date 04/06/2012 Inactive hydrocodone-acetaminophen 5 mg-500 mg Cap RxNorm: 030150 1 Capsule(s) PO Q6 PRN No Start Date 10/26/2011 Inactive Phenergan-Codeine 6.25 mg-10 mg/5 mL syrup RxNorm: 951225 5 Milliliter(s) PO Q6 as needed cough No Start Date 07/19/2017 Inactive diclofenac sodium 75 mg tablet,delayed release RxNorm: 117671 2 Tablet(s) PO BID No Start Date 03/24/2016 Inactive Zithromax Z-Rangel 250 mg tablet RxNorm: 429088 Tablet(s) PO UD No Start Date 03/22/2012 Inactive orphenadrine citrate ER 100 mg Tab RxNorm: 012004 1 Tablet(s) PO BID No Start Date 05/19/2016 Inactive scopolamine 1.5 mg transdermal patch (1 mg over 3 days) RxNorm: 361758 2 Patch TD q 3 days No Start Date 07/08/2016 Inactive Fish Oil 1,000 mg Cap RxNorm: 3 Capsule(s) PO daily No Start Date 04/29/2013 Inactive Macrodantin 50 mg Cap RxNorm: 451954 1 Capsule(s) PO daily No Start Date 10/07/2014 Inactive hydrochlorothiazide 50 mg Tab RxNorm: 217108 1 Tablet(s) PO daily No Start Date 11/10/2011 Inactive Medication Administered Medication Codes Instructions Start Date Status ceftriaxone 500 mg solution for injection RxNorm: 6015450 1Gram 09/14/2017 No longer Active ceftriaxone 500 mg solution for injection RxNorm: 7794993 08/09/2017 No longer Active ceftriaxone 500 mg solution for injection RxNorm: 0917928 1Milliliter 08/08/2017 No longer Active Kenalog 40 mg/mL suspension for injection RxNorm: 4516019 Milliliter 09/27/2016 No longer Active promethazine 25 mg/mL injection solution RxNorm: 602547 1Milliliter 10/30/2013 No longer Active ketorolac 60 mg/2 mL intramuscular solution RxNorm: 082931 2Milliliter 10/30/2013 No longer Active Kenalog 40 mg/mL Susp for Injection RxNorm: 6600010 2Milliliter 07/06/2013 No longer Active Influenza Virus Vaccine 0.5 mL RxNorm: 06/28/2012 No longer Active Pneumovax 23 25 mcg/0.5 mL Injection RxNorm: 239033 Milliliter 06/28/2012 No longer Active ketorolac 60 mg/2 mL IM RxNorm: 524899 2Milliliter 08/31/2011 No longer Active Kenalog 40 mg/mL Susp for Injection RxNorm: 3445242 1.5Milliliter 08/18/2011 No longer Active Rocephin 500 mg Solution for Injection RxNorm: 933849 1Milliliteras doctor directed 05/21/2011 No longer Active [...] NO Growth Day 2 06/23/2017 Culture Urine [id number] URINE CULTURE SEE NOTES 06/13/2017 Culture Urine [id number] Continued Results 06/13/2017 Urine Culture Ucult Complete >100,000 col/ml aerobic growth sent to ref lab 06/11/2017 B12 Gsj169 B12 341.00 pg/ml 06/10/2017 Tsh Ord6 hTSH II 0.88 uIU/mL 06/10/2017 Comp Metabolic Fvb137 NA 138 mEq/L 06/10/2017 Comp Metabolic Bfj497 K 4.4 mEq/L 06/10/2017 Comp Metabolic Sml570 CL 104 mEq/L 06/10/2017 Comp Metabolic Uxo527 CO2 27.0 mEq/L 06/10/2017 Comp Metabolic Djv839 ANION GAP 11 06/10/2017 Comp Metabolic Yii502 GLUCOSE 86 mg/dL 06/10/2017 Comp Metabolic Ysp518 Creat 1.2 mg/dL 06/10/2017 Comp Metabolic Ixo504 eGFR 49 ml/min/1.73m2 06/10/2017 Comp Metabolic Qhi944 BUN 26 mg/dL 06/10/2017 Comp Metabolic Nfq449 B/C Ratio 22.2 Ratio 06/10/2017 Comp Metabolic Llb204 CALCIUM 9.4 mg/dL 06/10/2017 Comp Metabolic Jsq115 ALK PHOS 48 U/L 06/10/2017 Comp Metabolic Kgo214 AST(SGOT) 28 U/L 06/10/2017 Comp Metabolic Pzy229 ALT(SGPT) 29 U/L 06/10/2017 Comp Metabolic Idt801 BILI T 0.5 mg/dL 06/10/2017 Comp Metabolic Uqm298 ALBUMIN 4.1 g/dL 06/10/2017 Comp Metabolic Ctf175 TPRO 6.3 g/dL 06/10/2017 Comp Metabolic Smq760 GLOB 2.2 g/dL 06/10/2017 Comp Metabolic Lef772 A/G Ratio 1.9 Ratio 06/10/2017 Comp Metabolic Thp089 Osmo 280 mOsmo 06/10/2017 Cbc With Differential [...] 28.4 % 06/10/2017 Cbc With Differential Ord2 George% 10.7 % 06/10/2017 Cbc With Differential Ord2 MCH 34.9 pg 06/10/2017 Cbc With Differential Ord2 MCHC 32.5 pg 06/10/2017 Cbc With Differential Ord2 Eos% 4.4 % 06/10/2017 Cbc With Differential Ord2 PLT 358 K/ul 06/10/2017 Cbc With Differential Ord2 Baso% 0.4 % 06/10/2017 Cbc With Differential Ord2 Neut ABS# 2.93 K/ul 06/10/2017 Cbc With Differential Ord2 RDW 13.3 % 06/10/2017 Cbc With Differential Ord2 Lymph ABS# 1.48 K/ul 06/10/2017 Cbc With Differential Ord2 George ABS# 0.6 K/ul 06/10/2017 Cbc With Differential Ord2 Eos ABS# 0.2 K/ul 06/10/2017 Cbc With Differential Ord2 Baso ABS# 0.0 K/ul 06/10/2017 Total T3 Ord42 TT3 0.70 ng/ml 06/10/2017 Comp Metabolic Kak599 NA 139 mEq/L 08/20/2015 Comp Metabolic Plz788 K 4.4 mEq/L 08/20/2015 Comp Metabolic Jwi584 CL 104 mEq/L 08/20/2015 Comp Metabolic Hin911 CO2 26.0 mEq/L 08/20/2015 Comp Metabolic Aus872 ANION GAP 13 08/20/2015 Comp Metabolic Jyq826 GLUCOSE 78 mg/dL 08/20/2015 Comp Metabolic Ayc318 Creat 0.8 mg/dL 08/20/2015 Comp Metabolic Obq366 eGFR 79 ml/min/1.73m2 08/20/2015 Comp Metabolic Eox611 BUN 21 mg/dL 08/20/2015 Comp Metabolic Sok389 B/C Ratio 27.3 Ratio 08/20/2015 Comp Metabolic Lft532 CALCIUM 9.5 mg/dL 08/20/2015 Comp Metabolic Zkm756 ALK PHOS 64 U/L 08/20/2015 Comp Metabolic Cor357 AST(SGOT) 20 U/L 08/20/2015 Comp Metabolic Aaj652 ALT(SGPT) 16 U/L 08/20/2015 Comp Metabolic Ieq436 BILI T 0.5 mg/dL 08/20/2015 Comp Metabolic Dbt707 ALBUMIN 4.2 g/dL 08/20/2015 Comp Metabolic Ozy310 TPRO 7.0 g/dL 08/20/2015 Comp Metabolic Uxe133 GLOB 2.8 g/dL 08/20/2015 Comp Metabolic Dwa916 A/G Ratio 1.5 Ratio 08/20/2015 Comp Metabolic Zzm879 Osmo 279 mOsmo 08/20/2015 Cbc With Differential [...] Metabolic Ord15 CALCIUM 9.2 mg/dL 04/15/2015 %SAT/TIBC 3372822 TIBC 360 UG/DL 08/22/2013 %SAT/TIBC 2900732 % SATURAT 22 % 08/22/2013 %SAT/TIBC 9483408 UIBC 282 MCG/DL 08/22/2013 IRON TEST [id number] IRON TEST 78 UG/DL 08/22/2013 VIT D TOTL 2296830 VIT D TOTL 74 NG/ML 08/22/2013 CANCEL 5777089 CANCEL FOOTNOTE 08/22/2013 A1C HPLC 2560829 A1C HPLC 80337-6 5.8 % 08/21/2013 CHEM 14 0345480 AST 25 U/L 08/20/2013 CHEM 14 4584418 ALT 32 IU/L 08/20/2013 CHEM 14 20280323 BUN 21 MG/DL 08/20/2013 CHEM 14 8818543 ALBUMIN 4.4 GM/DL 08/20/2013 CHEM 14 8629764 CHLORIDE 105 MMOL/L 08/20/2013 CHEM 14 2263938 BILI TOT 0.5 MG/DL 08/20/2013 CHEM 14 3411929 ALK PHOS 50 U/L 08/20/2013 CHEM 14 6923422 SODIUM 139 MMOL/L 08/20/2013 CHEM 14 2145944 CREATININE 0.76 MG/DL 08/20/2013 CHEM 14 4937839 CALCIUM 9.7 MG/DL 08/20/2013 CHEM 14 3682558 POTASSIUM 3.9 MMOL/L 08/20/2013 CHEM 14 8327669 PROT TOT 7.0 GM/DL 08/20/2013 CHEM 14 2910678 GLUCOSE 135 MG/DL 08/20/2013 CHEM 14 6612888 BICARB 27 MMOL/L 08/20/2013 CHEM 14 9916630 ANION GAP 7 MEQ/L 08/20/2013 CBC 4106945 WBC 6.6 10e9/L 08/20/2013 CBC 5767953 RBC 4.28 10e12/L 08/20/2013 CBC 8682584 HGB 14.1 g/dL 08/20/2013 CBC 0900924 HCT DET 42.7 % 08/20/2013 CBC 2947484 MCV 99.8 fL 08/20/2013 CBC 3546454 MCH 32.9 pg 08/20/2013 CBC 7876702 MCHC 33.0 g/dL 08/20/2013 CBC 9129766 PLT 289 10e9/L 08/20/2013 CBC 3149322 MPV 9.8 fL 08/20/2013 CBC 9664840 AZAEL % 70.3 % 08/20/2013 CBC 2457462 LY % 21.2 % 08/20/2013 CBC 1750961 MON % 7.4 % 08/20/2013 CBC 2263895 EOS % 0.9 % 08/20/2013 CBC 4528688 BASO % 0.2 % 08/20/2013 CBC 0150713 RDW 13.5 % 08/20/2013 CBC 2870257 ABS AZAEL 4.64 10e9/L 08/20/2013 CBC 6205571 ABS LYMPH 1.40 10e9/L 08/20/2013 CBC 3415495 ABS MONO 0.49 10e9/L 08/20/2013 CBC 3716349 ABS EOS 0.06 10e9/L 08/20/2013 CBC 1864687 ABS BASO 0.01 10e9/L 08/20/2013 CBC 6518433 RDW-SD 48.4 fL 08/20/2013 GFR CALC 6028255 GFR AA >60 ML/MIN 08/20/2013 GFR CALC 0357817 GFR NON-AA >60 ML/MIN 08/20/2013 TSH 7011798 TSH 0.610 uIU/ML 08/20/2013 MAGNESIUM 3397511 MAGNESIUM 1.7 MEQ/L 08/20/2013 URINALYSIS NONAUTO W/O SCOPE 19018 Specific [place] 1.015 DateTime(Free Text in Aprima) URINALYSIS NONAUTO W/O SCOPE 98513 PH 6.0 DateTime(Free Text in Aprima) URINALYSIS NONAUTO W/O SCOPE 52556 GLUCOSE NEG DateTime( Free Text in Aprima) URINALYSIS NONAUTO W/O SCOPE 66106 Protein NEG DateTime( Free Text in Aprima) URINALYSIS NONAUTO W/O SCOPE 58557 Blood NEG DateTime(Free Text in Aprima) URINALYSIS NONAUTO W/O SCOPE 61562 Bilirubin NEG DateTime(Free Text in Aprima) URINALYSIS NONAUTO W/O SCOPE 88016 Ketones NEG DateTime( Free Text in Aprima) URINALYSIS NONAUTO W/O SCOPE 65914 Urobilinogen NEG DateTime(Free Text in Aprima) URINALYSIS NONAUTO W/O SCOPE 52823 Nitrite POSITIVE DateTime(Free Text in Aprima) URINALYSIS NONAUTO W/O SCOPE 80091 Leukocytes NEG DateTime(Free Text in Aprima) Review [...] leg: tender 05/20/2015 LEFT KNEE INCISION WITH CHI INTACT AND WELL APPROXIMATED, SMALL SEROUS DRAINAGE [...] benign 10/30/2013 None Full Exam - General 1995 Lymphatic [...] dentition 09/25/2013 None Full Exam - General 1995 Ears/Nose/Throat lips/teeth/gingiva Overall: benign gingiva 09/25/2013 None [...] accomodation 08/20/2013 None Full Exam - General 1995 Eyes conjunctiva /eyelids Overall: conjunctiva clear 08/20/2013 None Full Exam - General 1995 Eyes conjunctiva /eyelids Overall: eyelids normal 08/20/2013 None Full Exam - General 1995 Eyes conjunctiva /eyelids Overall: cornea clear 08/20/2013 [...] tenderness 08/20/2013 None Full Exam - General 1994 [...] developed 07/06/2013 None Full Exam - General 1995 Constitutional general appearance Overall: in no acute distress 07/06/2013 None Full Exam - General 1995 Constitutional general appearance Overall: well nourished 07/06/2013 None Full Exam - General 1995 Psychiatric [...] bilaterally 10/26/2012 None Full Exam - General 1994 Cardiovascular extremities Overall: no clubbing 10/26/2012 None Full Exam - General 1994 Cardiovascular auscultation of heart Rate: regular rate 10/26/2012 None Full Exam - General 1994 Cardiovascular auscultation of heart Rhythm: regular rhythm 10/26/2012 None Full Exam - General 1995 Lymphatic [...] trace 06/28/2012 None Full Exam - General 1995 Cardiovascular extremities Overall: no clubbing 06/28/2012 None [...] clear 06/28/2012 None Full Exam - General 1995 Ears/Nose/Throat oral cavity/pharynx/larynx Overall: oral mucosa clear 06/28/2012 None Full Exam - General 1995 Ears/Nose/Throat [...] 1994 Constitutional general appearance Overall: well developed 05/24/2012 [...] Procedure Codes Date THER/PROPH/DIAG INJ SC/IM CPT-4: 57702 09/14/2017 ROCEPHIN, PER 250 MG CPT-4: J0696 09/14/2017 THER/PROPH/DIAG INJ SC/IM CPT-4: 72918 08/09/2017 ROCEPHIN, PER 250 MG CPT-4: J0696 08/09/2017 ROCEPHIN, PER 250 MG CPT-4: J0696 08/08/2017 URINALYSIS NONAUTO W/O SCOPE CPT-4: 78601 06/21/2017 URINALYSIS NONAUTO W/O SCOPE CPT-4: 07489 06/10/2017 PPPS, SUBSEQ VISIT CPT -4: G0439 12/17/2016 THER/PROPH/DIAG INJ SC/IM CPT-4: 10849 09/27/2016 TRIAMCINOLONE ACET INJ NOS CPT-4: J3301 09/27/2016 ADMIN INFLUENZA VIRUS VAC CPT-4: G0008 06/21/2016 FLU VACC 4 EMMA 3 YRS PLUS IM Formatting Model/CDA Sections, Assigned to/Kiki Redding SNOMED CT: [id number] CPT-4: 15869Hslxwxx 06/21/2016 PNEUMOCOCCAL VACC 13 EMMA IM Formatting Model/CDA Sections, Assigned to/Kiki Redding SNOMED CT: [id number] CPT-4: 19112Txxfdex 07/21/2015 IMMUNIZATION ADMIN CPT -4: 76443 07/21/2015 THER/PROPH/DIAG INJ SC/IM CPT-4: 52970 09/05/2014 TENIVAC TD VACCINE NO PRSRV 7/> IM Assigned to CPT-4: 58249Vqgjwca 09/05/2014 ADMIN INFLUENZA VIRUS VAC CPT-4: G0008 06/14/2014 FLU VAC NO PRSV 4 EMMA 3 YRS+ Assigned to/Kiki Redding CPT-4: 44181Sykelye 06/14/2014 33885 EST. PATIENT, LEVEL IV CPT-4: 51385 01/11/2014 URINALYSIS NONAUTO W/O SCOPE CPT-4: 53939 01/11/2014 KETOROLAC TROMETHAMINE INJ CPT-4: J1885 10/30/2013 PROMETHAZINE HCL INJECTION CPT-4: J2550 10/30/2013 ROUTINE VENIPUNCTURE CPT-4: 25121 08/20/2013 INJ TRIGGER POINT 1/2 MUSCL CPT-4: 09770 07/06/2013 IMMUNIZATION ADMIN CPT -4: 90701 06/28/2012 Influenza Virus Vaccine, Split Virus, >3 Yrs, IM CPT-4: 96058 06/28/2012 Pneumococcal Polysaccharide Vaccine, 23-Valent, Ad CPT-4: 81975 06/28/2012 URINALYSIS NONAUTO W/O SCOPE CPT-4: 96745 12/29/2011 KETOROLAC TROMETHAMINE INJ CPT-4: J1885 08/31/2011 THER/PROPH/DIAG INJ SC/IM CPT-4: 11578 08/31/2011 TRIAMCINOLONE ACET INJ NOS CPT-4: J3301 08/17/2011 THER/PROPH/DIAG INJ SC/IM CPT-4: 86613 08/17/2011 URINALYSIS NONAUTO W/O SCOPE CPT-4: 44737 08/17/2011 ROCEPHIN, PER 250 MG CPT-4: J0696 05/21/2011 THER/PROPH/DIAG INJ SC/IM CPT-4: 91098 05/21/2011 Vital Signs Date Vital 09/14/2017 Blood Pressure 1: 126/74 Code : 8480-6 Heart Rate 1: 95 bpm Height: SpO2: 95% Weight: 08/09/2017 Height: Weight: 08/08/2017 Blood Pressure 1: 126/86 Code : 8480-6 BMI: 28.3 Code : 09656-5 Heart Rate 1 : 83 bpm Height: 5'5" SpO2: 98% Weight: 170 lbs 06/10/2017 Blood Pressure 1: 110/72 Code : 8480-6 BMI: 29.1 Code : 32298-1 Heart Rate 1 : 84 bpm Height: 5'5" SpO2: 97% Weight: 175 lbs 03/04/2017 Blood Pressure 1: 102/66 Code : 8480-6 BMI: 28.4 Code : 61917-6 Heart Rate 1 : 91 bpm Height: 5'5" SpO2: 93% Weight: 170 lbs 8 oz 12/17/2016 Blood Pressure 1: 138/76 Code : 8480-6 BMI: 28.8 Code : 02127-0 Heart Rate 1 : 86 bpm Height: [...] Code : 8480-6 BMI: 28.3 Code : 35709-5 Heart Rate 1 : 83 bpm Height: 5'5" SpO2: 94% Weight: 170 lbs 06/21/2016 Blood Pressure 1: 120/80 Code : 8480-6 BMI: 29.3 Code : 12353-0 Heart Rate 1 : 76 bpm Height: 5'6" SpO2: 90% Weight: 179 lbs 05/20/2016 Blood Pressure 1: 130/70 Code : 8480-6 BMI: 29.7 Code : 52238-1 Heart Rate 1 : 79 bpm Height: 5'6" SpO2: 96% Weight: 181 lbs 01/26/2016 Blood Pressure 1: 138/80 Code : 8480-6 BMI: 29.7 Code : 73944-6 Heart Rate 1 : 75 bpm Height: 5'6" SpO2: 95% Weight: 181 lbs 11/12/2015 Blood Pressure 1: 132/62 Code : 8480-6 BMI: 29.2 Code : 12218-2 Heart Rate 1 : 73 bpm Height: 5'6" SpO2: 95% Weight: 178 lbs 09/29/2015 Blood Pressure 1: 140/76 Code : 8480-6 BMI: 29.3 Code : 05607-8 Heart Rate 1 : 69 bpm Height: 5'6" SpO2: 97% Weight: 179 lbs 08/22/2015 Blood Pressure 1: 158/78 Code : 8480-6 Blood Pressure 1: 142/88 Code: 8480-6 BMI: 30.0 Code: 66693-2 Heart Rate 1: 98 bpm Height: 5'6" SpO2: 99% Temperature : 83.9 (C) / 183.0 (F) Weight: 183 lbs 07/21/2015 Blood Pressure 1: 130/90 Code : 8480-6 Blood Pressure 1: 130/88 Code: 8480-6 BMI: 29.8 Code: 88128-3 Heart Rate 1: 64 bpm Height: 5'6" SpO2: 96% Weight: 182 lbs 05/20/2015 Blood Pressure 1: 130/68 Code : 8480-6 Heart Rate 1: 93 bpm Height: 5'6" SpO2: 96% Weight: 01/24/2015 Blood Pressure 1: 128/74 Code : 8480-6 BMI: 29.2 Code : 63897-4 Heart Rate 1 : 88 bpm Height: 5'6" Weight: 178 lbs 12/23/2014 Blood Pressure 1: 102/62 Code : 8480-6 Heart Rate 1: 88 bpm Height: SpO2: 98% Weight: 10/08/2014 Blood Pressure 1: 118/78 Code : 8480-6 BMI: 30.0 Code : 33354-7 Heart Rate 1 : 78 bpm Height: [...] Code : 8480-6 BMI: 30.2 Code : 31837-5 Heart Rate 1 : 84 bpm Height: 5'6" Weight: 184 lbs 08/20/2013 Blood Pressure 1: 132/70 Code : 8480-6 Weight: 07/06/2013 Blood Pressure 1: 126/80 Code : 8480-6 Heart Rate 1: 68 bpm Weight: 04/30/2013 Blood Pressure 1: 122/70 Code : 8480-6 BMI: 30.4 Code : 71828-0 Heart Rate 1 : 64 bpm Height: [...] Code : 8480-6 BMI: 30.5 Code : 23612-8 Heart Rate 1 : 97 bpm Height: 5'5" Weight: 183 lbs 05/21/2011 Blood Pressure 1: 128/78 Code : 8480-6 BMI: 28.4 Code : 04125-8 Heart Rate 1 : 76 bpm Height: [...] well woman exam (65+ years) 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 PATIENT, LEVEL III Diagnosis: Cellulitis of left finger[ICD10: L03.012] Chela Crisostomo MD, [facility] CPT-4: 49007 08/08/2017 ([id number]) 04628 EST. PATIENT, LEVEL IV Diagnosis: Essential (primary) hypertension[ICD10: I10] Diagnosis: Dysuria[ICD10: R30.0] Diagnosis: Rash and other nonspecific skin eruption[ICD10: R21] Diagnosis: Other insomnia[ICD10: G47.09] Diagnosis: Other fatigue[ICD10: R53.83] Diagnosis: Vitamin B12 deficiency anemia, unspecified[ICD10: D51.9] Chela Crisostomo MD , [facility] CPT-4: 13195 06/10/2017 ([id number]) 56498 EST. PATIENT, LEVEL III Diagnosis: Rash and other nonspecific skin eruption[ICD10: R21] Chela Crisostomo MD, [facility] CPT-4: 58504 03/04/2017 ([id number]) 15248 EST. PATIENT, LEVEL III Diagnosis: Cough[ICD10: R05] Diagnosis: Pneumonia, unspecified organism[ICD10: J18.9] Diagnosis: Pain in left shoulder[ICD10: M25.512] Chela Crisostomo MD, [facility] CPT-4: 65407 11/25/2016 ([id number]) 55389 EST. PATIENT, LEVEL III Diagnosis: Pain in left shoulder[ICD10: M25.512] Diagnosis: Pneumonia, unspecified organism[ICD10: J18.9] Chela Crisostomo MD, [facility] CPT-4: 91808 11/18/2016 ([id number]) 30603 EST. PATIENT, LEVEL IV Diagnosis: Cough[ICD10: R05] Diagnosis: Pneumonia, unspecified organism[ICD10: J18.9] Diagnosis: Hypoxemia[ICD10: R09.02] Chela Crisostomo MD, [facility] CPT-4: 16071 11/11/2016 ([id number]) 68460 EST. PATIENT, LEVEL IV Diagnosis: Encounter for gynecological examination (general) (routine) without abnormal findings[ICD10: Z01.419] Chela Crisostomo MD, [facility] CPT-4: 70515 06/21/2016 ([id number]) 22071 EST. PATIENT, LEVEL IV Diagnosis: Pressure ulcer of right buttock, stage 2[ICD10: L89.312] Diagnosis: Essential (primary) hypertension[ICD10: I10] Diagnosis: Myalgia[ICD10: M79.1] Chela Crisostomo MD, [facility] CPT-4: 57418 05/20/2016 ([id number]) 23761 EST. PATIENT, LEVEL III Diagnosis: Essential (primary) hypertension[ICD10: I10] Diagnosis: Unilateral primary osteoarthritis, right knee[ICD10: M17.11] Chela Crisostomo MD, [facility] CPT-4: 27182 01/26/2016 74401 EST. PATIENT, LEVEL IV Diagnosis: Cutaneous abscess of left upper limb[ICD10: L02.414] Annemarie Crisostomo MD, [facility] CPT-4: 09608 11/12/2015 15038 EST. PATIENT, LEVEL IV Diagnosis: Essential (primary) hypertension[ICD10: I10] Diagnosis: Localized edema[ICD10: R60.0] Chela Crisostomo MD, [facility] CPT-4: 75053 09/29/2015 ([id number]) 16528 EST. PATIENT, LEVEL III Diagnosis: Essential (primary) hypertension[ICD10: I10] Diagnosis: Localized edema[ICD10: R60.0] Chela Crisostomo MD, [facility] CPT-4: 20058 08/22/2015 ([id number]) 15719 EST. PATIENT, LEVEL IV Diagnosis: Essential (primary) hypertension[ICD10: I10] Diagnosis: Localized edema[ICD10: R60.0] Diagnosis: Pain in leg, unspecified[ICD10: M79.606] Diagnosis: Primary generalized (osteo)arthritis[ICD10: M15.0] Diagnosis: VACCIN STREP PNEUMONIAE[ICD10: Z23] Chela Crisostomo MD, [facility] CPT-4: 16388 07/21/2015 ([id number]) 59495 EST. PATIENT, LEVEL III Diagnosis: Edema[ICD9: 782.3] Diagnosis: Presence of surgical incision[ICD9: V49.89] Paty Crisostomo MD, [facility] CPT-4: 65023 05/20/2015 ([id number]) 75696 EST. PATIENT, LEVEL III Diagnosis: ESSENTIAL HYPERTENSION[ICD9: 401.9] Diagnosis: Leg pain[ICD9: 729.5] Paty Crisostomo MD, [facility] CPT-4: 65298 01/24/2015 ([id number]) 26129 EST. PATIENT, LEVEL III Diagnosis: ESSENTIAL HYPERTENSION[ICD9: 401.9] Paty Crisostomo MD [facility] CPT-4: 18707 12/23/2014 ([id number]) 79566 EST. PATIENT, LEVEL III Diagnosis: ESSENTIAL HYPERTENSION[ICD9: 401.9] Diagnosis: Irritable bowel[ICD9: 564.1] Paty Crisostomo MD, [facility] CPT- 4: 23844 10/08/2014 ([id number]) 24218 EST. PATIENT, LEVEL V Diagnosis: ESSENTIAL HYPERTENSION[ICD9: 401.9] Diagnosis: Varicose veins[ICD9: 454.9] Diagnosis: Leg pain[ICD9: 729.5] Diagnosis: Leg cramps[ICD9: 729.82] Diagnosis: Back pain[ICD9: 724.5] Diagnosis: Diarrhea[ICD9: 787.91] Diagnosis: Abdominal pain[ICD9: 789.00] Paty Crisostomo MD, [facility] CPT- 4: 90967 09/24/2014 ([id number]) 58646 EST. PATIENT, LEVEL III Diagnosis: Varicose veins[ICD9: 454.9] Diagnosis: Edema[ICD9: 782.3] Chela Crisostomo MD, [facility] CPT-4: 22615 07/22/2014 ([id number]) 52428 EST. PATIENT, LEVEL IV Diagnosis: Abdominal pain[ICD9: 789.00] Diagnosis: Back pain[ICD9: 724.5] Paty Crisostomo MD, [facility] CPT-4: 50522 01/07/2014 ([id number]) 55120 EST. PATIENT, LEVEL IV Diagnosis: Diarrhea[ICD9: 787.91] Diagnosis: Nausea and vomiting[ICD9: 787.01] Diagnosis: Abdominal pain[ICD9: 789.00] Chela Crisostomo MD, [facility] CPT-4: 20532 10/30/2013 ([id number]) 47650 EST. PATIENT, LEVEL IV Diagnosis: Tinea cruris[ICD9: 110.3] Diagnosis: ESSENTIAL HYPERTENSION[SNOMED: 85440409] Diagnosis: Elevated blood sugar[ICD9: 790.29] Chela Crisostomo MD, [facility] CPT-4: 70120 09/25/2013 ([id number]) 65564 EST. PATIENT, LEVEL IV Diagnosis: Leg cramps[ICD9: 729.82] Diagnosis: ESSENTIAL HYPERTENSION[SNOMED: 54762967] Diagnosis: DEFICIENCY ANEMIA[ICD9: 281.9] Diagnosis: ABN THYROID FUNCT STUDY[ICD9: 794.5] Diagnosis: Abnormal glucose[ICD9: 790.29] Diagnosis: Insomnia[ICD9: 780.52] Diagnosis: Leg pain[ICD9: 729.5] Diagnosis: Fatigue[ICD9: 780.79] Chela Crisostomo MD, [facility] CPT-4: 99102 08/20/2013 62128 EST. PATIENT, LEVEL II Diagnosis: BACKACHE[ICD9: 724.5] Diagnosis: Cervicalgia[ICD9: 723.1] Diagnosis: Spasm of muscle[ICD9: 728.85] Diagnosis: Musculoskeletal disorder and symptoms referable to neck[ICD9: 723.9] Chela Crisostomo MD, [facility] CPT-4: 98615 07/06/2013 31722 EST. PATIENT, LEVEL IV Diagnosis: Health examination of defined subpopulation[ICD9: V70.5] Diagnosis: ESSENTIAL HYPERTENSION[SNOMED: 40249622] Chela Crisostomo MD, [facility] CPT-4: 66196 04/30/2013 ([id number]) 61825 EST. PATIENT, LEVEL III Diagnosis: Diarrhea[ICD9: 787.91] Diagnosis: ALLERGIC RHINITIS[ICD9: 477.9] Paty Crisostomo MD, [facility] CPT- 4: 94484 12/29/2012 ([id number]) 71543 EST. PATIENT, LEVEL III Diagnosis: Unspecified deficiency anemia[ICD9: 281.9] Diagnosis: Abnormal thyroid blood test[ICD9: 794.5] Diagnosis: Abnormal thyroid exam[ICD9: 246.9] Diagnosis: Thinning hair[ICD9: 704.00] Paty Crisostomo MD, [facility] CPT- 4: 95172 10/26/2012 ([id number]) 27101 EST. PATIENT, LEVEL III Diagnosis: ESSENTIAL HYPERTENSION[SNOMED: 28254329] Diagnosis: EDEMA[ICD9: 782.3] Paty Crisostomo MD, [facility] CPT-4: 98734 07/12/2012 ([id number]) 03737 EST. PATIENT, LEVEL IV Diagnosis: ESSENTIAL HYPERTENSION[SNOMED: 25513760] Diagnosis: EDEMA[ICD9: 782.3] Diagnosis: VAC STREP PNEUMONIAE-FLU[ICD9: V06.6] Chela Crisostomo MD, [facility] CPT-4: 09288 06/28/2012 ([id number]) 47524 EST. PATIENT, LEVEL III Diagnosis: ESSENTIAL HYPERTENSION[SNOMED: 29069567] Paty Crisostomo MD, [facility] CPT-4: 95331 05/24/2012 ([id number]) 49505 EST. PATIENT, LEVEL IV Diagnosis: ESSENTIAL HYPERTENSION[SNOMED: 76402947] Diagnosis: EDEMA[ICD9: 782.3] Diagnosis: Bibasilar crackles[ICD9: 786.7] Paty Crisostomo MD, [facility] CPT- 4: 11223 05/09/2012 88589 EST. PATIENT, LEVEL IV Diagnosis: Acute pharyngitis[ICD9: 462] Diagnosis: Diarrhea[ICD9: 787.91] Chela Crisostomo MD, [facility] CPT-4: 32267 01/31/2012 07755 EST. PATIENT, LEVEL IV Diagnosis: Diarrhea[ICD9: 787.91] Diagnosis: Urinary tract infection[ICD9: 599.0] Diagnosis: ESSENTIAL HYPERTENSION[SNOMED: 79878130] Chela Crisostomo MD, [facility] CPT-4: 42618 12/29/2011 82047 EST. PATIENT, LEVEL IV Diagnosis: Abnormal bruising[ICD9: 782.9] Diagnosis: NSAID long-term use[ICD9: V58.64] Diagnosis: ESSENTIAL HYPERTENSION[SNOMED: 69756182] Chela Crisostomo MD, [facility] CPT-4: 94030 12/20/2011 38300 EST. PATIENT, LEVEL III Diagnosis: Hip pain, right[ICD9: 719.45] Diagnosis: Fall on same level from slipping, tripping, or stumbling[ICD9: E885.9 ] Diagnosis: ESSENTIAL HYPERTENSION[SNOMED: 49378139] Chela Crisostomo MD, [facility] CPT-4: 45772 08/31/2011 00273 EST. PATIENT, LEVEL III Diagnosis: Back pain[ICD9: 724.5] Diagnosis: Sciatica[ICD9: 724.3] Chela Crisostomo MD, [facility] CPT-4: 11798 08/17/2011 35503 EST. PATIENT, LEVEL IV Diagnosis: ACUTE PYELONEPHRITIS[ICD9: 590.10] Diagnosis: RENAL & URETERAL DIS NOS[ICD9: 593.9] Diagnosis: LUMBAGO[ICD9: 724.2] Paty Crisostomo MD, [facility] CPT-4: 22012 05/21/2011 Plan of Care Planned Activity Notes [...] acute concerns. 09/14/2017 Appointment: Annemarie Gibson [phone] [facility] (15 min) Moderate 09/14/2017 Patient Education: Patient [...] symptoms, worsening redness, warmth, discharge. 08/08/2017 Appointment: Cheal Camara WPtel: [facility]5 [phone] [place] (10 min) Simple 08/08/2017 Patient Education: [...] any worse 06/10/2017 Appointment: Chela Camara WPtel: [facility]9 [phone] (30 min) Complex 06/10/2017 Patient Education: Patient Medication Summary Completed 06/10/2017 Visit Plan: Snsf-azavbix-igpzzno today in the office-will start patient on anti viral medication as well as antibiotics and follow up in the office in 10 days, sooner if needed. 03/04/2017 Appointment: Chela Camara WPtel: [facility]0 [address] (15 min) Moderate 03/04/2017 Patient Education: Patient [...] care surrogate. 12/17/2016 Appointment: Chela Camara WPtel: [facility] [place] [phone] [facility] - Annual Wellness Visit 12/17/2016 Patient Education: Patient Medication Summary Completed 12/17/2016 Visit Plan: Pneumonia-symptoms have resolved-no further follow up needed Left shoulder pain-suspect rotator cuff injury-recommend MRI- patient will consider-wants to rest for now and will let us know if she wants MRI 11/25/2016 Appointment: Chela Camara WPtel: [address] [place], [place] [phone] (30 min) Complex 11/25/2016 Patient Education: Patient Medication Summary Completed 11/25/2016 Visit Plan: Left shoulder/arm pain-recent fall-xray shoulder and arm Pneumonia-follow up-symptoms improved-repeat chest xray 11/18/2016 Appointment: Chela Camara WPtel: [address] [place], [place] [phone] (30 min) Complex 11/18/2016 Patient Education: Patient Medication Summary Completed 11/18/2016 Visit Plan: Pneumonia-continue antibioitic for 5 additional days-start albuterol nebulizer as directed-continue advair as directed-will continue oxygen due to hypoxemia-oxygen saturation 86% on room air at rest today in the office. Follow up in the office in 1 week-sooner if needed. 11/11/2016 Appointment: Chela Camara WPtel: [phone] (30 min) Complex 11/11/2016 Patient Education: Patient [...] or prn. 06/21/2016 Appointment: Chela Camara WPtel: [phone] (15 min) Moderate 06/21/2016 Patient Education: Patient [...] in blood pressure readings at home. Chronic bjag-lmfpyznbaxxz-vhice cymbalta 30mg daily-refill hydrocodone for prn use 05/20/2016 Appointment: Chela Camara WPtel: [phone] (30 min) Complex 05/20/2016 Patient Education: Patient Medication Summary Completed 05/20/2016 Care Plan: SCREENINGMAMMOGRAPHYDIGITAL LOINC : 18137-4 Pending 05/20/2016 Visit Plan: Hypertension - well controlled - continue with current medications, continue with no added salt diet. Pt has been encouraged to exercise daily. The pt has been advised to call the office if there are any acute concerns about change in blood pressure readings at home. DJD right knee- planning to have knee replacement next month with Dr Smyth at [place] 01/26/2016 Appointment: Chela Camara WPtel: [phone] (15 min) Moderate 01/26/2016 Patient Education: Patient Medication Summary Completed 01/26/2016 Care Plan: Referral Order SNOMED-CT : [id number] Ordered 11/19/2015 Visit Plan: Abscess/Cellulitis - The [...] peripheral edema. 08/22/2015 Appointment: Chela Camara WPtel: [address] [place], [place] [phone] (30 min) [facility] 08/22/2015 Patient Education: Patient Medication Summary Completed [...] attempt to reduce peripheral edema. Left leg incision-chi intact-slight redness noted-follow up with Dr Smyth [...] fracture-refill hydrocodone 01/24/2015 Appointment: Chela Camara WPtel: [address] [place], [place] [phone] [place] [address] Follow up 01/24/2015 Patient Education: Patient Medication Summary Completed 01/24/2015 Patient Education: Hypertension Completed 01/24/2015 Visit Plan: Hypertension - well controlled - continue with current medications, continue with no added salt diet. The pt has been advised to call the office if there are any acute concerns about change in blood pressure readings at home. 12/23/2014 Appointment: Paty Crisostomo WPtel: [address] [place], [place] [phone] [place] [address] follow up 12/23/2014 Patient Education: Patient Medication Summary Completed 12/23/2014 Patient Education: Hypertension Completed 12/23/2014 Appointment: Paty Crisostomo WPtel: [address] [place] [address] Follow up 12/10/2014 Visit Plan: Hypertension - [...] bowel movements. 10/08/2014 Appointment: [facility]ostomo [facility]el[phone] [facility] Follow up 10/08/2014 Patient Education: Patient Medication Summary Completed 10/08/2014 Patient Education: Hypertension Completed 10/08/2014 Care Plan: Referral Order SNOMED-CT : [id number] Ordered 10/08/2014 Visit Plan: Hypertension - uncontrolled [...] Summary Completed 07/22/2014 Appointment: Paty Crisostomo [facility]Ptel: [phone] [facility] [place] Injection 06/14/2014 Patient Education: Patient Medication Summary Completed 06/14/2014 Patient Education: Patient Medication Summary Completed 06/13/2014 Visit Plan: Abd pain-flank ancj-ktdxptxedtgfnq-noluwdjyq with Dr Crisostomo-plan for outpatient IV fluids and IV antibiotics as well as pain medicaton while allowing her bowels to rest. Patient verbalized understanding of plan. 01/11/2014 Appointment: Chela Camara WPtel: [phone] [phone] Sick 01/11/2014 Patient Education: Patient Medication Summary [...] Medication Summary Completed 01/07/2014 Visit Plan: Abdominal sslpbylw-thymcyzg-rgavl flagyl and probiotic and monitor symptoms. Call or go to ER for any worsening or worrisome symptoms. Recommend clear liquid diet advance to bland as tolerated. Toradol and phenergan injfections today in the office for acute symptoms. Patient verbalized understanding of plan. 10/30/2013 Appointment: Chela Camara WPtel: [facility]5 [phone] Sick 10/30/2013 Patient Education: Patient Medication Summary [...] requip for restless leg syndrome. Elevated blood wtmcgk-douerkfho-vyopofzs episodes-check Hgb A1C and TSH Fatigue-check labs 08/20/2013 Appointment: Chela Camara WPtel: [facility] Other 08/20/2013 Patient Education: Patient Medication Summary [...] disease process. 07/06/2013 Appointment: Chela Camara WPtel: [address] [place] [address] Other 07/06/2013 Patient Education: Patient Medication Summary [...] attached forms. 04/30/2013 Appointment: Chela Camara WPtel: [address] [place] [address] Other 04/30/2013 Patient Education: Patient Medication Summary [...] lab report. 10/26/2012 Appointment: Paty Crisostomo WPtel: [phone] [facility] Other 10/26/2012 Patient Education: Patient Medication Summary [...] peripheral edema. 07/12/2012 Appointment: Paty Crisostomo WPtel: [facility]5 [facility] Follow up 07/12/2012 Patient Education: Patient Medication Summary Completed 07/12/2012 Patient Education: High Blood Pressure: Essential Hypertension Completed 2011 Appointment: Paty Crisostomo WPtel: [facility] Follow up 07/03/2012 Visit Plan: Hypertension - [...] the office 06/28/2012 Appointment: Chela Camara [facility]Ptel: [phone] [phone] Other 06/28/2012 Patient Education: Patient Medication Summary [...] READINGS. 05/24/2012 Appointment: Chela Camara [facility]Ptel: [phone] [phone] Follow up 05/24/2012 Patient Education: Patient Medication [...] use compression socks from toes to thighs. Molepywn-mtynt-hggjz xray and labs-will proceed as indicated 05/09/2012 Appointment: Chela Camara WPtel: [address] [place], [place] [phone] [address] Other 05/09/2012 Patient Education: Patient Medication Summary [...] of plan. 01/31/2012 Appointment: Chela Camara WPtel: [phone] Other 01/31/2012 Patient Education: Patient Medication Summary [...] acute concerns. 12/29/2011 Appointment: Chela Camara WPtel: [facility]5 [phone] Other 12/29/2011 Patient Education: Patient Medication Summary [...] at home. 12/20/2011 Appointment: Chela Camara WPtel: [facility]5 [phone] Other 12/20/2011 Patient Education: Patient Medication Summary [...] at home. 08/31/2011 Appointment: Chela Camara WPtel: [phone] [phone] Other 08/31/2011 Patient Education: Patient Medication Summary [...] treatment indicated. 08/17/2011 Appointment: Chela Camara WPtel: [facility]0 [phone] Other 08/17/2011 Patient Education: Patient Medication Summary Completed 08/17/2011 Patient Education: .Amazing charts Exercise for Sciatica Completed 08/17/2011 Visit Plan: Pyelonephritis - stop nitrofurantoin - starton levofloxacin 500mg qday x [address] scan scheduled for @ 4:15pm Start the levofloxacin tonight, start on a probiotic, such as [employer] or [employer] to prevent diarrhea while on the antibiotic. Back pain - due to pyelonephritis - call if not improved. 05/21/2011 Appointment: Paty Crisostomo WPtel: [phone] [facility] Follow up 05/21/2011 Patient Education: Patient Medication [...] side, will re-eval with ct scan . Hypertension - well controlled - continue with current medications, continue with no added salt diet. Pt has been encouraged to exercise daily. The pt has been advised to call the office if there are any acute concerns about change in blood pressure readings at home. DJD right knee-planning to have knee replacement next month with Dr Smyth at [place] . Hypertension - well controlled - continue [...] OF THE HOME BLOOD PRESSURE READINGS. . Cellulitis - continue with oral antibiotics [...] attempt to reduce peripheral edema. Left leg incision-chi intact-slight redness noted-follow up with Dr Smyth [...] change in blood pressure readings at home. culture rash buttock . Omqz-wooplac-kqykgkd today in the office-will start patient on anti viral medication as well as antibiotics and follow up in the office in 10 days, sooner if needed. . Thinning hair, fatigue, enlarged neck - recommended thyroid ultrasound, check labs, and monitor symptoms. Pt has been recommended pt to consider changing hair products, consider starting on rogaine and we will call her with lab report. PROBIOTIC TWICE DAILY. Abdominal ejjadgnu-xymsnxks-aaxlg flagyl and probiotic and monitor symptoms. Call or go to ER for any worsening or worrisome symptoms. Recommend clear liquid diet advance to bland as tolerated. Toradol and phenergan injfections today in the office for acute symptoms. Patient verbalized understanding of plan. . Hypertension - well controlled - continue with current medications, continue with no added salt diet. Pt has been encouraged to exercise daily. The pt has been advised to call the office if there are any acute concerns about change in blood pressure readings at home. Tinea cruris-RX for nystatin Elevated blood sugar-wants to lose weight-RX for metformin compression hose check labs . Edema - [...] use compression socks from toes to thighs. Lvbhpwnp-xwwwm-gjaux xray and labs-will proceed as indicated albuterol nebulizer REPEAT XRAY CHEST NEXT WEEK-ALSO XRAY LEFT SHOULDER/HUMERUS . Pneumonia- continue antibioitic for 5 additional days-start albuterol nebulizer as directed -continue advair as directed-will continue oxygen due to hypoxemia-oxygen saturation 86% on room air at rest today in the office. Follow up in the office in 1 week-sooner if needed. . Left shoulder/arm pain-recent fall-xray shoulder and arm Pneumonia-follow up-symptoms improved-repeat chest xray Strep swab today in the office-we will [...] the diet when having loose bowel movements. AMLODIPINE 5MG DAILY MONITOR BLOOD PRESSURE AND [...] further attempt to reduce peripheral edema. . Pyelonephritis - stop nitrofurantoin - starton levofloxacin 500mg qday x [address] scan scheduled for @ 4:15pm Start the levofloxacin tonight, start on a probiotic, such as [employer] or [employer] to prevent diarrhea while on the antibiotic. Back pain - due to pyelonephritis - call if not improved. . Hypertension - well controlled - continue [...] in blood pressure readings at home. Chronic uxpw-faltiscjzcsp-ebila cymbalta 30mg daily-refill hydrocodone for prn use [...] abdomen and pelvis - start on probiotic. FLU SHOT . Well Adult Female - exam completed. Pap and breast exam completed. Pt will be called with results of her testing. She was advised to continue with yearly annual exams. Safe sex practices discussed during office visit today. Call if any abnormal gynecologic issues during the next year, otherwise, RTC yearly or prn. . Trigger Points - Injected trigger points today, pt given post-injection instructions, signs and symptoms for which to call the office. Pt to use heat to the muscles today, and take an anti-inflammatory today unless otherwise contraindicated by renal function or other disease process. . Diarrhea - recommended bland diet, low [...] history of UTI-negative. No further treatment indicated. . Abd pain-flank yjqa-ocftoctkpuodld-corqxvyhm with Dr Crisostomo-plan for outpatient IV fluids and IV antibiotics as well as pain medicaton while allowing her bowels to rest. Patient verbalized understanding of plan. RETURN TOMORROW MORNING FOR DRESSING EHHSEC-SS-AEZDIOOQDD OF FINGER . Cellulitis - continue with oral antibiotics as previously directed, return to clinic as previously directed, call for acute change in symptoms, worsening redness, warmth, discharge. . Leg cramps-plan to check labs including magnesium, iron, and vitamin D levels-if okay, may consider trial of requip for restless leg syndrome. Elevated blood ihibfr-qzrhqljnb-fjxdpppl episodes-check Hgb A1C and TSH Fatigue-check labs [...]
--- OUTSIDE RECORDS SUMMARY | 2017-11-27 08:23 | XMS REPORT | CCD ---
Author Author [facility] Organization [facility] Address [address] [place] [address] Phone Care Team Providers Care [employer] Name Role Phone PP Unavailable CCM Unavailable Summary Purpose Interface Exchange Insurance Providers Payer name Policy type / Coverage type Covered democrat ID Effective Begin Date Effective End Date WPS Medicare Part B [id number] 2014 Unknown [employer] [id number] 2014 Unknown Family history Mother Diagnosis Age At Onset No Family Disease Entered N/A Father Diagnosis Age At Onset No Family Disease Entered N/A Social History Social History Element Codes Description Effective Dates Marital status Unknown 08/18/2011 Employment Unknown 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 08/18/[address]: 094493586 Nonsmoker 08/18/[address]: 919399 Currently drinks alcohol 08/18/2011 Frequency of drinks SNOMED CT: 167499497 Drinks rarely rum occasionally 08/18/2011 Allergies, Adverse [...] Start Date Stop Date Status Fill Instructions hyoscyamine ER 0.375 mg tablet,extended release,12 hr RxNorm: 6799220 TAKE ONE TABLET BY MOUTH TWICE A DAY 10/28/201711/2018 Active cyclobenzaprine 10 mg tablet RxNorm: 820955 1 Tablet(s) PO TID as needed 10/27/2017 11/15/2017 Active Diflucan 150 mg tablet RxNorm: 033542 1 Tablet(s) PO every other day 10/18/2017 10/31/2017 Active diclofenac sodium 75 mg tablet,delayed release RxNorm: 725156 TAKE TWO TABLETS BY MOUTH TWICE A DAY 10/17/2017 02/13/2018 Active diclofenac sodium 75 mg tablet,delayed release RxNorm: 524330 TAKE TWO TABLETS BY MOUTH TWICE A DAY 10/17/2017 10/16/2017 Inactive hydrocodone 10 mg-acetaminophen 325 mg tablet RxNorm: 631509 1 Tablet(s) PO Q4 PRN TAKE ONE TABLET BY MOUTH EVERY 4 HOURS NEEDED FOR PAIN 09/20/2017 10/19/2017 Inactive amlodipine 5 mg tablet RxNorm: 547078 TAKE ONE TABLET BY MOUTH DAILY 09/20/2017 03/18/2018 Active mupirocin 2 % topical ointment RxNorm: 913792 1 Application TOP BID 09/16/2017 No Stop Date Active ceftriaxone 500 mg solution for injection RxNorm: 7843135 1 Gram(s) Inj 09/14/2017 09/14/2017 Inactive Cymbalta 30 mg capsule,delayed release RxNorm: 075930 TAKE ONE CAPSULE BY MOUTH DAILY 08/15/2017 11/07/2018 Active clindamycin 300 mg capsule RxNorm: 659764 1 Capsule(s) PO TID 08/10/2017 08/16/2017 Inactive clindamycin 300 mg capsule RxNorm: 633555 1 Capsule(s) PO TID 08/10/2017 08/09/2017 Inactive ceftriaxone 500 mg solution for injection RxNorm: 7861075 Inj 08/09/2017 08/09/2017 Inactive Bactrim DS 800 mg-160 mg tablet RxNorm: 755233 1 Tablet(s) PO BID 08/09/2017 08/15/2017 Inactive ER CHANGED BASED ON CULTURE REPORT trazodone 50 mg tablet RxNorm: 160710 1.5 Tablet(s) PO QHS 02/03/2018 Active Requip 0.5 mg tablet RxNorm: 612452 1 Tablet(s) PO QHS TAKE ONE TABLET BY MOUTH DAILY 08/08/2017 02/03/2018 Active ceftriaxone 500 mg solution for injection RxNorm: 3207207 1 Milliliter(s) Inj 08/08/2017 08/08/2017 Inactive hydrocodone 10 mg-acetaminophen 325 mg tablet RxNorm: 923502 1 Tablet(s) PO Q4 PRN TAKE ONE TABLET BY MOUTH EVERY 4 HOURS NEEDED FOR PAIN 08/08/2017 09/06/2017 Inactive Phenergan-Codeine 6.25 mg-10 mg/5 mL syrup RxNorm: 282486 5 Milliliter(s) PO Q6 as needed cough 07/20/2017 No Stop Date Active trazodone 50 mg tablet RxNorm: 377536 1/2-1 Tablet(s) PO QHS 08/07/2017 Inactive 1/2 TO 1 tablet, NOT 1.5 tablet diclofenac sodium 75 mg tablet,delayed release RxNorm: 676262 TAKE TWO TABLETS BY MOUTH TWICE A DAY 06/28/2017 08/26/2017 Inactive Voltaren 1 % topical gel RxNorm: 866502 APPLY TOPICALLY FOUR TIMES A DAY 06/24/2017 06/18/2018 Active prednisone 20 mg tablet RxNorm: 208931 2 Tablet(s) PO daily 11/201606/20/2017 Inactive ketoconazole 2 % topical cream RxNorm: 254684 1 Application TOP BID 06/21/2017 06/30/2017 Inactive right neck and groin ketoconazole 2 % topical cream RxNorm: 201233 1 Application TOP BID 06/21/2017 06/20/2017 Inactive right neck and groin hydrocodone 10 mg-acetaminophen 325 mg tablet RxNorm: 699580 1 Tablet(s) PO Q4 PRN TAKE ONE TABLET BY MOUTH EVERY 4 HOURS NEEDED FOR PAIN 06/21/2017 07/20/2017 Inactive prednisone 20 mg tablet RxNorm: 525081 2 Tablet(s) PO daily 11/201606/25/2017 Inactive Augmentin 500 mg-125 mg tablet RxNorm: 820436 1 Tablet(s) PO TID 06/13/2017 06/12/2017 Inactive take probiotice BID x7 Augmentin 500 mg-125 mg tablet RxNorm: 404977 1 Tablet(s) PO TID 06/13/2017 06/19/2017 Inactive take probiotice BID x7 triamcinolone acetonide 0.5 % topical cream RxNorm: 1661952 1 Application TOP BID 06/10/2017 06/19/2017 Inactive trazodone 50 mg tablet RxNorm: 014341 1/2-1 Tablet(s) PO QHS 07/13/2017 Inactive hydrocodone 10 mg-acetaminophen 325 mg tablet RxNorm: 774676 1 Tablet(s) PO Q4 PRN TAKE ONE TABLET BY MOUTH EVERY 4 HOURS NEEDED FOR PAIN 04/08/2017 05/07/2017 Inactive Benicar 40 mg tablet RxNorm: 886353 TAKE ONE TABLET BY MOUTH DAILY 03/16/2017 12/10/2017 Active acyclovir 800 mg tablet RxNorm: 635847 TAKE ONE TABLET BY MOUTH FOUR TIMES A DAY 03/16/2017 03/25/2017 Inactive Bactrim DS 800 mg-160 mg tablet RxNorm: 335343 1 Tablet(s) PO BID 03/07/2017 03/13/2017 Inactive Bactrim DS 800 mg-160 mg tablet RxNorm: 429804 1 Tablet(s) PO BID 03/07/2017 03/06/2017 Inactive mupirocin 2 % topical ointment RxNorm: 434812 1 Application TOP BID 03/07/2017 03/06/2017 Inactive mupirocin 2 % topical ointment RxNorm: 422505 1 Application TOP BID 03/07/2017 03/16/2017 Inactive acyclovir 800 mg tablet RxNorm: 693662 1 Tablet(s) PO QID 03/0403/13/2017 Inactive Keflex 500 mg capsule RxNorm: 710724 1 Capsule(s) PO TID 201603/06/2017 Inactive amlodipine 5 mg tablet RxNorm: 360705 TAKE ONE TABLET BY MOUTH DAILY 02/22/2017 08/20/2017 Inactive gabapentin 100 mg capsule RxNorm: 171733 TAKE TWO CAPSULES BY MOUTH EVERY MORNING AND TAKE THREE CAPSULES BY MOUTH EVERY EVENING NEEDED 02/01/2018 Active Macrodantin 50 mg capsule RxNorm: 261363 TAKE ONE CAPSULE BY MOUTH DAILY 02/07/2017 02/01/2018 Active Cymbalta 30 mg capsule,delayed release RxNorm: 578822 TAKE ONE CAPSULE BY MOUTH DAILY 02/07/2017 08/05/2017 Inactive Requip 0.5 mg tablet RxNorm: 805726 TAKE ONE TABLET BY MOUTH DAILY 01/21/2017 02/17/2017 Inactive estradiol 0.5 mg tablet RxNorm: 699508 Tablet(s) TAKE ONE-HALF TABLET BY MOUTH TWO TIMES A DAY 01/18/2017 01/12/2018 Active fenofibrate nanocrystallized 145 mg tablet RxNorm: 547483 TAKE ONE TABLET BY MOUTH DAILY 01/18/2017 01/12/2018 Active Zetia 10 mg tablet RxNorm: 082048 TAKE ONE TABLET BY MOUTH DAILY 01/18/2017 01/12/2018 Active Zetia 10 mg tablet RxNorm: 027448 TAKE ONE TABLET BY MOUTH DAILY 01/18/2017 01/17/2017 Inactive hyoscyamine ER 0.375 mg tablet,extended release,12 hr RxNorm: 2003065 TAKE ONE TABLET BY MOUTH TWICE A DAY 01/10/2017 Inactive Flonase 50 mcg/actuation nasal spray,suspension RxNorm: 0210864 1 Rice NASAL each nare daily 12/17/2016 04/15/2017 Inactive [SAVINGS FOR UNINSURED PATIENTS -- BIN:751411, PCN: ASPROD1, Group: [id number], ID# [id number], Process claim through [employer], for questions: . THIS IS NOT INSURANCE.] Voltaren 1 % topical gel RxNorm: 433411 APPLY TOPICALLY FOUR TIMES A DAY 12/17/2016 03/26/2017 Inactive hydrocodone 10 mg-acetaminophen 325 mg tablet RxNorm: 115724 1 Tablet(s) PO Q4 PRN TAKE ONE TABLET BY MOUTH EVERY 4 HOURS NEEDED FOR PAIN 12/17/2016 01/15/2017 Inactive (Appended: Controlled substance eRx refill - RxReferenceNumber: [id number]) diclofenac sodium 75 mg tablet,delayed release RxNorm: 544544 TAKE TWO TABLETS BY MOUTH TWICE A DAY 11/22/2016 05/20/2017 Inactive Cymbalta 30 mg capsule,delayed release RxNorm: 476262 TAKE ONE CAPSULE BY MOUTH DAILY 11/22/2016 02/06/2017 Inactive albuterol sulfate 2.5 mg/0.5 mL solution for nebulization RxNorm: 808264 3 Milliliter(s) INH Q4 PRN 11/11/2016 No Stop Date Active Levaquin 500 mg tablet RxNorm: 368232 1 Tablet(s) PO daily 11/15/2016 Inactive Zetia 10 mg tablet RxNorm: 412969 TAKE ONE TABLET BY MOUTH DAILY 10/21/2016 10/27/2016 Inactive fenofibrate nanocrystallized 145 mg tablet RxNorm: 663737 TAKE ONE TABLET BY MOUTH DAILY 10/21/2016 01/17/2017 Inactive estradiol 0.5 mg tablet RxNorm: 625339 TAKE ONE-HALF TABLET BY MOUTH TWO TIMES A DAY 10/20/2016 01/17/2017 Inactive Kenalog 40 mg/mL suspension for injection RxNorm: 0160670 Milliliter(s) Inj 09/27/2016 09/27/2016 Inactive hydrocodone 10 mg-acetaminophen 325 mg tablet RxNorm: 320957 1 Tablet(s) PO Q4 PRN TAKE ONE TABLET BY MOUTH EVERY 4 HOURS NEEDED FOR PAIN 09/21/2016 10/20/2016 Inactive (Appended: Controlled substance eRx refill - RxReferenceNumber: [id number]) Flonase 50 mcg/actuation nasal spray,suspension RxNorm: 4468874 1 Rice NASAL each nare daily 09/03/2016 12/16/2016 Inactive [SAVINGS FOR UNINSURED PATIENTS -- BIN:728151, PCN: ASPROD1, Group: [id number], ID# [id number], Process claim through [employer], for questions: . THIS IS NOT INSURANCE.] amlodipine 5 mg tablet RxNorm: 087077 TAKE ONE TABLET BY MOUTH DAILY 08/19/2016 02/14/2017 Inactive Cymbalta 30 mg capsule,delayed release RxNorm: 761168 TAKE ONE CAPSULE BY MOUTH DAILY 08/17/2016 11/21/2016 Inactive Requip 0.5 mg tablet RxNorm: 165567 TAKE ONE TABLET BY MOUTH DAILY 07/22/2016 07/31/2016 Inactive scopolamine 1.5 mg transdermal patch (1 mg over 3 days) RxNorm: 661281 2 Patch TD q 3 days 07/09/2016 No Stop Date Active scopolamine 1.5 mg transdermal patch (1 mg over 3 days) RxNorm: 778936 2 Patch TD q 3 days 07/09/2016 07/08/2016 Inactive hydrocodone 10 mg-acetaminophen 325 mg tablet RxNorm: 873729 1 Tablet(s) PO Q4 PRN TAKE ONE TABLET BY MOUTH EVERY 4 HOURS NEEDED FOR PAIN 05/20/2016 06/18/2016 Inactive (Appended: Controlled substance eRx refill - RxReferenceNumber: [id number]) Cymbalta 30 mg capsule,delayed release RxNorm: 702559 1 Capsule(s) PO daily 05/20/2016 05/20/2016 Inactive fenofibrate nanocrystallized 145 mg tablet RxNorm: 479978 1 Tablet(s) PO daily 04/29/2016 10/20/2016 Inactive estradiol 0.5 mg tablet RxNorm: 756110 TAKE ONE-HALF TABLET BY MOUTH TWO TIMES A DAY 04/27/2016 10/19/2016 Inactive Zetia 10 mg tablet RxNorm: 882781 TAKE ONE TABLET BY MOUTH DAILY 04/16/2016 10/12/2016 Inactive diclofenac sodium 75 mg tablet,delayed release RxNorm: 566015 2 Tablet(s) PO BID 03/25/2016 07/22/2016 Inactive Benicar 40 mg tablet RxNorm: 911649 1 Tablet(s) PO daily 201503/15/2017 Inactive ok to dispense generic if available hydrocodone 10 mg-acetaminophen 325 mg tablet RxNorm: 380071 1 Tablet(s) PO Q4 PRN TAKE ONE TABLET BY MOUTH EVERY 4 HOURS NEEDED FOR PAIN 03/25/2016 04/23/2016 Inactive (Appended: Controlled substance eRx refill - RxReferenceNumber: [id number]) amlodipine 5 mg tablet RxNorm: 656110 TAKE ONE TABLET BY MOUTH DAILY 02/09/2016 08/06/2016 Inactive Benicar 40 mg tablet RxNorm: 430055 1 Tablet(s) PO daily 201503/24/2016 Inactive ok to dispense generic if available hydrocodone 10 mg-acetaminophen 325 mg tablet RxNorm: 226224 1 Tablet(s) PO Q4 PRN TAKE ONE TABLET BY MOUTH EVERY 4 HOURS NEEDED FOR PAIN 01/26/2016 03/24/2016 Inactive (Appended: Controlled substance eRx refill - RxReferenceNumber: [id number]) gabapentin 100 mg capsule RxNorm: 694384 TAKE TWO CAPSULES BY MOUTH EVERY MORNING AND TAKE THREE CAPSULES BY MOUTH EVERY EVENING NEEDED 11/201502/06/2017 Inactive Zetia 10 mg tablet RxNorm: 309689 TAKE ONE TABLET BY MOUTH DAILY 01/20/2016 04/15/2016 Inactive hyoscyamine ER 0.375 mg tablet,extended release,12 hr RxNorm: 9962453 TAKE ONE TABLET BY MOUTH TWICE A DAY 12/30/201505/2016 Inactive Voltaren 1 % topical gel RxNorm: 810091 APPLY TOPICALLY FOUR TIMES A DAY 12/09/2015 08/04/2016 Inactive doxycycline hyclate 100 mg capsule RxNorm: 1413877 1 Capsule(s) PO BID 11/12/2015 11/21/2015 Inactive Macrodantin 50 mg capsule RxNorm: 295875 1 Capsule(s) PO daily 11/07/2015 01/29/2017 Inactive [SAVINGS FOR UNINSURED PATIENTS -- BIN:468985, PCN: ASPROD1, Group: [id number], ID# [id number], Process claim through [employer], for questions: [phone]. THIS IS NOT INSURANCE.] Requip 0.5 mg tablet RxNorm: 553579 1 Tablet(s) PO daily TAKE ONE TABLET BY MOUTH DAILY 11/06/2015 07/21/2016 Inactive Mobic 15 mg tablet RxNorm: 630531 TAKE ONE TABLET BY MOUTH EVERY DAY 10/21/2015 01/25/2016 Inactive estradiol 0.5 mg tablet RxNorm: 191144 TAKE ONE-HALF TABLET BY MOUTH TWO TIMES A DAY 10/20/2015 04/16/2016 Inactive hydrocodone 10 mg-acetaminophen 325 mg tablet RxNorm: 550547 1 Tablet(s) PO Q4 PRN TAKE ONE TABLET BY MOUTH EVERY 4 HOURS NEEDED FOR PAIN 09/29/2015 11/27/2015 Inactive (Appended: Controlled substance eRx refill - RxReferenceNumber: [id number]) Benicar 40 mg tablet RxNorm: 039579 1 Tablet(s) PO daily 201501/25/2016 Inactive [SAVINGS FOR NON-COVERED DRUGS -- BIN:487122, PCN: ASPROD1, Group: XXXXX, ID # [id number], Questions: . THIS IS NOT INSURANCE.] Benicar 40 mg tablet RxNorm: 886339 1/2 Tablet(s) PO daily 09/22/2015 Inactive [SAVINGS FOR NON-COVERED DRUGS -- BIN:101432, PCN: ASPROD1, Group: XXXXX, ID# [id number], Questions: . THIS IS NOT INSURANCE.] scopolamine 1.5 mg transdermal patch (1 mg over 3 days) RxNorm: 046854 1 Patch TD q72 hours 09/09/2015 05/18/2016 Inactive scopolamine 1.5 mg transdermal patch (1 mg over 3 days) RxNorm: 059677 1 TD q72 hours 09/09/2015 09/08/2015 Inactive Requip 0.5 mg tablet RxNorm: 872462 1 Tablet(s) PO daily TAKE ONE TABLET BY MOUTH DAILY 08/22/2015 11/05/2015 Inactive hydrocodone 10 mg-acetaminophen 325 mg tablet RxNorm: 747742 1 Tablet(s) PO Q4 PRN TAKE ONE TABLET BY MOUTH EVERY 4 HOURS NEEDED FOR PAIN 08/22/2015 09/28/2015 Inactive (Appended: Controlled substance eRx refill - RxReferenceNumber: [id number]) fenofibrate nanocrystallized 145 mg tablet RxNorm: 908194 1 Tablet(s) PO daily 08/22/2015 02/17/2016 Inactive amlodipine 5 mg tablet RxNorm: 944428 1 Tablet(s) PO daily 12/201402/08/2016 Inactive gabapentin 100 mg capsule RxNorm: 348343 Capsule(s) PO TAKE THREE CAPSULE PO IN THE AM, 1 AT NOON AND 3 PO IN THE PIOTR 07/21/2015 No Stop Date Active [SAVINGS FOR NON-COVERED DRUGS -- BIN:764787, PCN: ASPROD1, Group: XXXXX, ID# [id number], Questions: . THIS IS NOT INSURANCE.] Zetia 10 mg tablet RxNorm: 311706 1 Tablet(s) PO daily 201401/16/2016 Inactive hydrocodone 10 mg-acetaminophen 325 mg tablet RxNorm: 741134 1 Tablet(s) PO Q4 PRN TAKE ONE TABLET BY MOUTH EVERY 4 HOURS NEEDED FOR PAIN 07/21/2015 08/21/2015 Inactive (Appended: Controlled substance eRx refill - RxReferenceNumber: [id number]) Requip 0.5 mg tablet RxNorm: 268756 TAKE ONE TABLET BY MOUTH DAILY 06/24/2015 08/21/2015 Inactive Benicar 40 mg tablet RxNorm: 423400 1/2 Tablet(s) PO daily 11/201409/14/2015 Inactive [SAVINGS FOR NON-COVERED DRUGS -- BIN:399800, PCN: ASPROD1, Group: XXXXX, ID# [id number], Questions: . THIS IS NOT INSURANCE.] hydrocodone 10 mg-acetaminophen 325 mg tablet RxNorm: 998490 1 Tablet(s) PO Q4 PRN TAKE ONE TABLET BY MOUTH EVERY 4 HOURS NEEDED FOR PAIN 04/28/2015 06/26/2015 Inactive (Appended: Controlled substance eRx refill - RxReferenceNumber: [id number]) estradiol 0.5 mg tablet RxNorm: 947735 TAKE ONE-HALF TABLET BY MOUTH TWO TIMES A DAY 04/21/2015 10/17/2015 Inactive Mobic 15 mg tablet RxNorm: 821285 TAKE ONE TABLET BY MOUTH EVERY DAY 03/27/2015 09/22/2015 Inactive hydrochlorothiazide 25 mg tablet RxNorm: 393560 1 Tablet(s) PO daily 03/10/2015 03/09/2015 Inactive hydrochlorothiazide 25 mg tablet RxNorm: 365052 1 Tablet(s) PO daily 03/10/2015 03/23/2015 Inactive hydrocodone 10 mg-acetaminophen 325 mg tablet RxNorm: 063847 1 Tablet(s) PO Q4 PRN TAKE ONE TABLET BY MOUTH EVERY 4 HOURS NEEDED FOR PAIN 01/24/2015 03/24/2015 Inactive (Appended: Controlled substance eRx refill - RxReferenceNumber: [id number]) gabapentin 100 mg capsule RxNorm: 697155 Capsule(s) PO TAKE TWO CAPSULE PO IN THE AM AND 3 PO IN THE PIOTR PRN 01/17/201509/2014 Inactive [SAVINGS FOR NON-COVERED DRUGS -- BIN:585657, PCN: ASPROD1, Group: XXXXX, ID# [id number], Questions: [phone]. THIS IS NOT INSURANCE.] Requip 0.5 mg tablet RxNorm: 022993 TAKE ONE TABLET BY MOUTH EVERY DAY 01/16/2015 05/15/2015 Inactive Requip 0.5 mg tablet RxNorm: 167043 TAKE ONE TABLET BY MOUTH EVERY DAY 01/16/2015 01/15/2015 Inactive Requip 0.5 mg tablet RxNorm: 382498 TAKE ONE TABLET BY MOUTH EVERY DAY 01/16/2015 01/15/2015 Inactive estradiol 0.5 mg tablet RxNorm: 063357 TAKE ONE-HALF TABLET BY MOUTH TWO TIMES A DAY 01/14/2015 04/13/2015 Inactive Benicar 40 mg tablet RxNorm: 909715 1/2 Tablet(s) PO daily 02/201505/21/2015 Inactive [SAVINGS FOR NON-COVERED DRUGS -- BIN:367300, PCN: ASPROD1, Group: XXXXX, ID# [id number], Questions: . THIS IS NOT INSURANCE.] Cymbalta 30 mg capsule,delayed release RxNorm: 889067 1 Capsule(s) PO daily 12/23/2014 05/19/2016 Inactive [SAVINGS FOR NON-COVERED DRUGS -- BIN:591402, PCN: ASPROD1, Group: XXXXX, ID# [id number], Questions: . THIS IS NOT INSURANCE.] Benicar 40 mg tablet RxNorm: 555788 1 Tablet(s) PO daily 201412/22/2014 Inactive [SAVINGS FOR UNINSURED PATIENTS -- BIN:716414, PCN: ASPROD1, Group: [id number], ID # [id number], Process claim through [employer], for questions: . THIS IS NOT INSURANCE.] hydrocodone 10 mg-acetaminophen 325 mg tablet RxNorm: 563939 Tablet(s) PO TAKE ONE TABLET BY MOUTH EVERY 4 HOURS NEEDED FOR PAIN 201401/23/2015 Inactive (Appended: Controlled substance eRx refill - RxReferenceNumber: [id number]) Flonase 50 mcg/actuation nasal spray,suspension RxNorm: 648975 1 Rice NASAL each nare daily 11/04/2014 11/03/2014 Inactive Keflex 500 mg capsule RxNorm: 188552 1 Capsule(s) PO QID 201411/03/2014 Inactive take probiotic while on ABT Keflex 500 mg capsule RxNorm: 082751 1 Capsule(s) PO QID 201411/10/2014 Inactive take probiotic while on ABT [SAVINGS FOR UNINSURED PATIENTS -- BIN:494602, PCN: ASPROD1, Group: AME08, ID# [id number], Process claim through [employer], for questions: . THIS IS NOT INSURANCE.] Flonase 50 mcg/actuation nasal spray,suspension RxNorm: 3913085 1 Rice NASAL each nare daily 11/04/2014 01/02/2015 Inactive [SAVINGS FOR UNINSURED PATIENTS -- BIN:934697, PCN: ASPROD1, Group: AME08, ID# [id number], Process claim through [employer], for questions: . THIS IS NOT INSURANCE.] Benicar 40 mg tablet RxNorm: 758037 1 Tablet(s) PO daily 201411/05/2014 Inactive [SAVINGS FOR UNINSURED PATIENTS -- BIN:003562, PCN: ASPROD1, Group: AME08, ID # [id number], Process claim through [employer], for questions: . THIS IS NOT INSURANCE.] Benicar 40 mg tablet RxNorm: 929008 TAKE ONE TABLET BY MOUTH DAILY 10/28/2014 01/25/2015 Inactive hyoscyamine ER 0.375 mg tablet,extended release,12 hr RxNorm: 7672650 1 Tablet(s) PO BID 10/08/2014 12/29/2015 Inactive [SAVINGS FOR UNINSURED PATIENTS -- BIN:047060 , PCN: ASPROD1, Group: AME08, ID# [id number], Process claim through [employer], for questions: . THIS IS NOT INSURANCE.] Macrodantin 50 mg capsule RxNorm: 413272 1 Capsule(s) PO daily 10/08/2014 11/06/2015 Inactive [SAVINGS FOR UNINSURED PATIENTS -- BIN:603919, PCN: ASPROD1, Group: AME08, ID# [id number], Process claim through [employer], for questions: [phone]. THIS IS NOT INSURANCE.] Benicar 40 mg tablet RxNorm: 450733 1 Tablet(s) PO daily 201409/29/2014 Inactive Benicar 40 mg tablet RxNorm: 487539 1 Tablet(s) PO daily 201410/27/2014 Inactive [SAVINGS FOR UNINSURED PATIENTS -- BIN:049554, PCN: ASPROD1, Group: AME08, ID # [id number], Process claim through [employer], for questions: . THIS IS NOT INSURANCE.] Cipro 500 mg tablet RxNorm: 584182 1 Tablet(s) PO BID 201410/06/2014 Inactive [SAVINGS FOR UNINSURED PATIENTS -- BIN:383225, PCN: ASPROD1, Group: AME08, ID # [id number], Process claim through [employer], for questions: . THIS IS NOT INSURANCE.] Flagyl 500 mg tablet RxNorm: 701694 1 Tablet(s) PO TID 201410/06/2014 Inactive [SAVINGS FOR UNINSURED PATIENTS -- BIN:110182, PCN: ASPROD1, Group: AME08, ID # [id number], Process claim through [employer], for questions: . THIS IS NOT INSURANCE.] estradiol 0.5 mg tablet RxNorm: 731770 1/2 Tablet(s) PO BID 02/201512/22/2014 Inactive [SAVINGS FOR UNINSURED PATIENTS -- BIN:401458, PCN: ASPROD1, Group: AME08 , ID# [id number], Process claim through [employer], for questions: . THIS IS NOT INSURANCE.] Bystolic 10 mg tablet RxNorm: 900334 1 Tablet(s) PO BID 201410/07/2014 Inactive [SAVINGS FOR UNINSURED PATIENTS -- BIN:348541, PCN: ASPROD1, Group: AME08, ID # [id number], Process claim through [employer], for questions: . THIS IS NOT INSURANCE.] hydrochlorothiazide 25 mg tablet RxNorm: 833531 TAKE ONE TABLET BY MOUTH EVERY DAY 08/19/2014 12/22/2014 Inactive hydrochlorothiazide 25 mg tablet RxNorm: 840271 1 Tablet(s) PO daily 08/19/2014 11/26/2014 Inactive [SAVINGS FOR UNINSURED PATIENTS -- BIN:379906, PCN: ASPROD1, Group: AME08, ID# [id number], Process claim through [employer], for questions: [phone]. THIS IS NOT INSURANCE.] hydrocodone 10 mg-acetaminophen 325 mg tablet RxNorm: 265414 Tablet(s) PO TAKE ONE TABLET BY MOUTH EVERY 4 HOURS NEEDED FOR PAIN 201311/05/2014 Inactive (Appended: Controlled substance eRx refill - RxReferenceNumber: [id number]) Requip 0.5 mg tablet RxNorm: 674106 TAKE ONE TABLET BY MOUTH EVERY DAY 07/03/2014 11/29/2014 Inactive hydrocodone 10 mg-acetaminophen 325 mg tablet RxNorm: 677846 Tablet(s) PO TAKE ONE TABLET BY MOUTH EVERY 4 HOURS NEEDED FOR PAIN 201307/25/2014 Inactive (Appended: Controlled substance eRx refill - RxReferenceNumber: [id number]) Mobic 15 mg tablet RxNorm: 864460 TAKE ONE TABLET BY MOUTH EVERY DAY 06/11/2014 03/07/2015 Inactive Klor-Con 10 mEq tablet,extended release RxNorm: 175139 TAKE 4 TABLETS ONCE DAILY 03/11/2014 03/23/2015 Inactive hydrocodone 10 mg-acetaminophen 325 mg tablet RxNorm: 626251 Tablet(s) PO TAKE ONE TABLET BY MOUTH EVERY 4 HOURS NEEDED FOR PAIN 201306/12/2014 Inactive (Appended: Controlled substance eRx refill - RxReferenceNumber: [id number]) hydrocodone 10 mg-acetaminophen 325 mg tablet RxNorm: 1670385 1 Tablet(s) PO Q4 PRN 02/05/2014 05/05/2014 Inactive Zithromax Z-Rangel 250 mg tablet RxNorm: 447696 Tablet(s) PO UD No Stop Date Active Flagyl 500 mg tablet RxNorm: 315870 1 Tablet(s) PO TID 201301/16/2014 Inactive Cipro 500 mg tablet RxNorm: 975682 1 Tablet(s) PO BID 201301/16/2014 Inactive Cipro 500 mg tablet RxNorm: 540044 1 Tablet(s) PO BID 201301/06/2014 Inactive Requip 0.5 mg tablet RxNorm: 109373 Tablet(s) PO TAKE ONE TABLET BY MOUTH EVERY DAY 12/25/2013 07/02/2014 Inactive zolpidem 5 mg tablet RxNorm: 837949 Tablet(s) PO TAKE ONE TABLET BY MOUTH AT BEDTIME NEEDED 11/26/2013 No Stop Date Active (Appended: Controlled substance eRx refill - RxReferenceNumber: [id number]) zolpidem 5 mg tablet RxNorm: 341109 1 Tablet(s) PO HS PRN 11/2611/26/2013 Inactive Klor-Con 10 mEq tablet,extended release RxNorm: 497357 Tablet(s) PO TAKE 4 TABLETS ONCE DAILY 11/05/2013 03/10/2014 Inactive Nasonex 50 mcg/actuation Rice RxNorm: 536826 2 Rice NASAL daily 2 sprays each nare once daily 10/30/2013 No Stop Date Active Requip 0.5 mg tablet RxNorm: 173713 1 Tablet(s) PO daily 201312/24/2013 Inactive Mobic 15 mg tablet RxNorm: 226323 1 Tablet(s) PO daily 201302/26/2014 Inactive Voltaren 1 % topical gel RxNorm: 346512 1 Application TOP QID 10/30/2013 11/23/2014 Inactive ketorolac 60 mg/2 mL intramuscular solution RxNorm: 808490 2 Milliliter(s) IM 10/30/2013 10/30/2013 Inactive nystatin 100,000 unit/gram topical powder RxNorm: 861724 1 Application TOP BID 10/30/2013 11/12/2013 Inactive Flagyl 500 mg tablet RxNorm: 407817 1 Tablet(s) PO TID 201311/08/2013 Inactive promethazine 25 mg/mL injection solution RxNorm: 374230 1 Milliliter(s) Inj 10/30/2013 10/30/2013 Inactive Diflucan 150 mg tablet RxNorm: 649734 1 Tablet(s) PO daily 10/10/2013 Inactive Diflucan 150 mg tablet RxNorm: 020558 1 Tablet(s) PO daily 10/03/2013 Inactive metformin 500 mg tablet RxNorm: 121432 1/2 Tablet(s) PO QHS 03/201410/30/2013 Inactive nystatin 100,000 unit/gram topical powder RxNorm: 047136 1 Application TOP BID 09/25/2013 10/08/2013 Inactive Bystolic 5 mg tablet RxNorm: 472311 Tablet(s) PO 09/24/2013 09/18/2014 Inactive 2 q am (10mg)1 q piotr (5mg ) Zithromax Z-Rangel 250 mg tablet RxNorm: 405721 Tablet(s) PO UD No Stop Date Active hydrocodone 10 mg-acetaminophen 325 mg tablet RxNorm: 888493 1 Tablet(s) PO Q4 PRN 09/10/2013 02/05/2014 Inactive Flexeril 5 mg tablet RxNorm: 274195 1 Tablet(s) PO Q8 PRN TAKE ONE TABLET BY MOUTH EVERY 8 HOURS NEEDED 09/10/2013 10/26/2017 Inactive Macrobid 100 mg capsule RxNorm: 529346 1 Capsule(s) PO BID 09/19/2013 Inactive zolpidem 5 mg tablet RxNorm: 369458 1 Tablet(s) PO HS PRN 08/2411/21/2013 Inactive simvastatin 20 mg tablet RxNorm: 017386 1 Tablet(s) PO QHS TAKE ONE TABLET BY MOUTH AT BEDTIME 08/24/2013 08/18/2014 Inactive Requip 0.5 mg tablet RxNorm: 673360 1/2 Tablet(s) PO daily 1/2 tab PO qhs x 1 week , then increase to full tablet PO qhs 08/23/2013 08/22/2013 Inactive iron 325 mg (65 mg iron) tablet RxNorm: 786276 1 Tablet(s) PO Mon Wed Frid take with orange juice 08/23/2013 01/19/2014 Inactive iron 325 mg (65 mg iron) tablet RxNorm: 343677 1 Tablet(s) PO Mon Wed Frid take with orange juice 08/23/2013 08/22/2013 Inactive Requip 0.5 mg tablet RxNorm: 449817 1/2 Tablet(s) PO daily 1/2 tab PO qhs x 1 week , then increase to full tablet PO qhs 08/23/2013 10/21/2013 Inactive hydrochlorothiazide 25 mg tablet RxNorm: 010875 1 Tablet(s) PO daily 08/02/2013 04/28/2014 Inactive Kenalog 40 mg/mL Susp for Injection RxNorm: 1859909 2 Milliliter(s) Inj 07/06/2013 07/06/2013 Inactive Zithromax Z-Rangel 250 mg tablet RxNorm: 193146 Tablet(s) PO UD No Stop Date Active zolpidem 5 mg tablet RxNorm: 685737 1 Tablet(s) PO HS PRN 05/3108/23/2013 Inactive simvastatin 20 mg tablet RxNorm: 931486 Tablet(s) PO TAKE ONE TABLET BY MOUTH AT BEDTIME 05/17/2013 08/23/2013 Inactive zolpidem 5 mg tablet RxNorm: 113784 1 Tablet(s) PO HS PRN 05/1705/30/2013 Inactive hydrocodone 10 mg-acetaminophen 325 mg tablet RxNorm: 9804692 1 Tablet(s) PO Q4 PRN 05/17/2013 08/14/2013 Inactive zolpidem 5 mg tablet RxNorm: 790267 1 Tablet(s) PO HS PRN 04/0405/03/2013 Inactive hydrocodone 10 mg-acetaminophen 325 mg tablet RxNorm: 9085443 1 Tablet(s) PO Q4 PRN 04/04/2013 05/16/2013 Inactive Voltaren 1 % topical gel RxNorm: 245985 1 Application TOP QID 04/04/2013 10/29/2013 Inactive gabapentin 100 mg capsule RxNorm: 566093 Capsule(s) PO TAKE ONE CAPSULE BY MOUTH TWICE A DAY 03/05/2013 07/21/2014 Inactive zolpidem 5 mg tablet RxNorm: 320654 1 Tablet(s) PO HS PRN 02/0804/03/2013 Inactive Flexeril 5 mg tablet RxNorm: 479649 1 Tablet(s) PO Q8 PRN TAKE ONE TABLET BY MOUTH EVERY 8 HOURS NEEDED 02/07/2013 09/10/2013 Inactive hydrocodone 10 mg-acetaminophen 325 mg tablet RxNorm: 8901263 1 Tablet(s) PO Q4 PRN 02/07/2013 04/03/2013 Inactive Celebrex 200 mg capsule RxNorm: 902399 1 Capsule(s) PO BID TAKE ONE CAPSULE BY MOUTH TWICE A DAY 02/07/2013 10/30/2013 Inactive zolpidem 5 mg tablet RxNorm: 994449 1 Tablet(s) PO HS PRN 01/1102/07/2013 Inactive Flexeril 5 mg tablet RxNorm: 900859 Tablet(s) PO TAKE ONE TABLET BY MOUTH EVERY 8 HOURS NEEDED 01/04/2013 02/06/2013 Inactive hydrocodone 10 mg-acetaminophen 325 mg tablet RxNorm: 6912819 1 Tablet(s) PO Q4 PRN 01/04/2013 02/06/2013 Inactive Flexeril 5 mg tablet RxNorm: 515593 1 Tablet(s) PO Q8 PRN 01/04 No Stop Date Active Nasonex 50 mcg/actuation Rice RxNorm: 310924 2 Rice NASAL 2 sprays each nare once daily 01/04/2013 10/29/2013 Inactive Klor-Con 10 mEq tablet,extended release RxNorm: 835206 Tablet(s) PO TAKE 4 TABLETS ONCE DAILY 12/18/2012 11/04/2013 Inactive simvastatin 20 mg tablet RxNorm: 278802 Tablet(s) PO TAKE ONE TABLET BY MOUTH AT BEDTIME 12/06/2012 05/16/2013 Inactive gabapentin 100 mg capsule RxNorm: 744005 1 Capsule(s) PO BID 03/03/2013 Inactive gabapentin 100 mg capsule RxNorm: 087537 1 Capsule(s) PO BID 12/03/2012 Inactive amoxicillin 500 mg tablet RxNorm: 166230 1 Tablet(s) PO TID 12/03/2012 Inactive amoxicillin 500 mg tablet RxNorm: 717368 1 Tablet(s) PO TID 12/08/2012 Inactive zolpidem 5 mg tablet RxNorm: 073183 1 Tablet(s) PO HS PRN 11/0801/06/2013 Inactive hydrocodone 10 mg-acetaminophen 325 mg tablet RxNorm: 5822063 1 Tablet(s) PO Q4 PRN 11/08/2012 01/03/2013 Inactive Celebrex 200 mg capsule RxNorm: 863641 Capsule(s) PO TAKE ONE CAPSULE BY MOUTH TWICE A DAY 11/08/2012 02/06/2013 Inactive gabapentin 100 mg capsule RxNorm: 175554 1 Capsule(s) PO BID 11/06/2012 Inactive gabapentin 100 mg capsule RxNorm: 134937 1 Capsule(s) PO BID 12/03/2012 Inactive Bystolic 5 mg tablet RxNorm: 590628 Tablet(s) PO 07/19/2012 07/18/2012 Inactive 2 q am (10mg)1 q piotr (5mg ) Bystolic 5 mg tablet RxNorm: 601357 Tablet(s) PO 07/19/2012 07/13/2013 Inactive 2 q am (10mg)1 q piotr (5mg ) hydrocodone-acetaminophen 10 mg-325 mg tablet RxNorm: 7692515 1 Tablet(s) PO Q4 PRN 07/12/2012 10/09/2012 Inactive hydrochlorothiazide 25 mg tablet RxNorm: 732900 1 Tablet(s) PO daily 07/12/2012 07/06/2013 Inactive Bystolic 10 mg tablet RxNorm: 728209 1 Tablet(s) PO daily 201107/18/2012 Inactive Lasix 20 mg tablet RxNorm: 352850 1 Tablet(s) PO PRN Take an extra potassium when taking lasix 07/12/2012 05/19/2016 Inactive Influenza Virus Vaccine 0.5 mL RxNorm: IM 06/28/2012 06/28/2012 Inactive Pneumovax 23 25 mcg/0.5 mL Injection RxNorm: 134894 Milliliter(s) Inj 06/28/2012 06/28/2012 Inactive Lasix 20 mg tablet RxNorm: 531494 1 Tablet(s) PO PRN Take an extra potassium when taking lasix 06/28/2012 07/11/2012 Inactive Flexeril 5 mg tablet RxNorm: 353654 1 Tablet(s) PO Q8 PRN 06/2009/17/2012 Inactive Flexeril 5 mg tablet RxNorm: 793221 1 Tablet(s) PO Q8 PRN 06/1506/19/2012 Inactive hydrochlorothiazide 25 mg tablet RxNorm: 134539 1 Tablet(s) PO daily 06/08/2012 07/07/2012 Inactive hydrocodone-acetaminophen 5 mg-500 mg capsule RxNorm: 905704 1 Capsule(s) PO Q6 PRN 06/08/2012 06/27/2012 Inactive hydrochlorothiazide 25 mg tablet RxNorm: 939488 1 Tablet(s) PO daily 06/08/2012 06/07/2012 Inactive Bystolic 10 mg tablet RxNorm: 423600 1 Tablet(s) PO daily 201107/11/2012 Inactive Lasix 20 mg tablet RxNorm: 112012 1 Tablet(s) PO PRN Take 1 tab daily x 5 days then daily PRN swelling. Take an extra potassium when taking potassium 05/10/2012 06/27/2012 Inactive hydrocodone-acetaminophen 5 mg-500 mg capsule RxNorm: 440348 1 Capsule(s) PO Q6 PRN 05/09/2012 06/07/2012 Inactive Flexeril 5 mg tablet RxNorm: 582146 1 Tablet(s) PO Q8 PRN 04/0706/14/2012 Inactive hydrocodone-acetaminophen 5 mg-500 mg capsule RxNorm: 009049 1 Capsule(s) PO Q6 PRN 03/30/2012 05/08/2012 Inactive Voltaren 1 % Topical Gel RxNorm: 419238 1 Application TOP QID 03/23/2012 09/18/2012 Inactive Voltaren 1 % Topical Gel RxNorm: 686199 1 Application TOP QID 03/23/2012 03/22/2012 Inactive Celebrex 200 mg capsule RxNorm: 631430 1 Capsule(s) PO BID 12/201111/07/2012 Inactive hydrocodone-acetaminophen 5 mg-500 mg Cap RxNorm: 786244 1 Capsule(s) PO Q6 PRN 02/15/2012 03/29/2012 Inactive hydrochlorothiazide 25 mg Tab RxNorm: 924883 1 Tablet(s) PO daily 02/02/2012 05/24/2012 Inactive Flagyl 500 mg Tab RxNorm: 626974 1 Tablet(s) PO TID 201102/01/2012 Inactive Flagyl 500 mg Tab RxNorm: 953173 1 Tablet(s) PO TID 201105/24/2012 Inactive hydrochlorothiazide 25 mg Tab RxNorm: 192715 1 Tablet(s) PO daily 02/02/2012 02/01/2012 Inactive Diflucan 150 mg Tab RxNorm: 354569 1 Tablet(s) PO daily 201105/24/2012 Inactive simvastatin 20 mg tablet RxNorm: 951912 1 Tablet(s) PO QHS 12/201112/05/2012 Inactive hydrocodone-acetaminophen 5 mg-500 mg Cap RxNorm: 247505 1 Capsule(s) PO Q6 PRN 01/20/2012 02/15/2012 Inactive Flagyl 500 mg Tab RxNorm: 430490 1 Tablet(s) PO TID 201101/04/2012 Inactive Macrobid 100 mg capsule RxNorm: 544726 1 Capsule(s) PO BID 07/201201/07/2012 Inactive lactobacillus acidophilus Chewable Tab RxNorm: 1 Tablet(s) PO BID 12/29/2011 05/24/2012 Inactive hydrocodone-acetaminophen 5 mg-500 mg Cap RxNorm: 758922 1 Capsule(s) PO Q6 PRN 12/27/2011 01/19/2012 Inactive hydrocodone-acetaminophen 5 mg-500 mg Cap RxNorm: 140086 1 Capsule(s) PO Q6 PRN 12/07/2011 12/26/2011 Inactive hydrochlorothiazide 50 mg Tab RxNorm: 936850 1 Tablet(s) PO daily 11/11/2011 05/24/2012 Inactive hydrocodone-acetaminophen 5 mg-500 mg Cap RxNorm: 004630 1 Capsule(s) PO Q6 PRN 10/27/2011 12/06/2011 Inactive Klor-Con 10 mEq tablet,extended release RxNorm: 386340 4 Tablet(s) PO daily 09/28/2011 06/23/2012 Inactive ketorolac 60 mg/2 mL IM RxNorm: 431145 2 Milliliter(s) IM 08/3108/31/2011 Inactive Klor-Con 10 10 mEq Tab RxNorm: 009589 4 Tablet(s) PO daily 04/201109/27/2011 Inactive Kenalog 40 mg/mL Susp for Injection RxNorm: 6946649 1.5 Milliliter(s) Inj 08/18/2011 08/18/2011 Inactive prednisone 10 mg Tab RxNorm: 881952 Tablet(s) PO 08/17/2011 08/22/2011 Inactive 6-5-4 -3-2-1 Celebrex 200 mg Cap RxNorm: 595029 1 Capsule(s) PO BID 201002/20/2012 Inactive simvastatin 20 mg Tab RxNorm: 189966 1 Tablet(s) PO 07/22/2011 01/20/2012 Inactive Rocephin 500 mg Solution for Injection RxNorm: 271013 1 Milliliter(s) Inj as doctor directed 05/21/2011 05/21/2011 Inactive Advair Diskus 250 mcg-50 mcg/dose powder for inhalation RxNorm: 2180556 2 Puff(s) INH BID No Start Date Active Vitamin D-3 Oral RxNorm: Oral No Start Date Active Diflucan 150 mg tablet RxNorm: 405219 1 Tablet(s) PO every other day No Start Date 01/06/2014 Inactive Klor-Con 10 10 mEq Tab RxNorm: 696822 1 Tablet(s) PO daily No Start Date 08/25/2011 Inactive nystatin-triamcinolone 100,000 unit/g-0.1 % Topical Cream RxNorm: 9532699 1 Application TOP TID No Start Date 2012 Inactive Bystolic 10 mg tablet RxNorm: 665003 1 Tablet(s) PO daily No Start Date 2012 Inactive Nasonex 50 mcg/actuation Rice RxNorm: 973399 2 Rice NASAL 2 sprays each nare once daily No Start Date 01/03/2013 Inactive naproxen 500 mg Tab RxNorm: 856376 1 Tablet(s) PO BID No Start Date 12/28/2011 Inactive mupirocin 2 % topical ointment RxNorm: 751118 1 Application TOP BID No Start Date 09/15/2017 Inactive Lasix 20 mg tablet RxNorm: 614152 1 Tablet(s) PO PRN Take 1 tab daily x 5 days then daily PRN swelling. Take an extra potassium when taking potassium No Start Date 05/09/2012 Inactive Flexeril 5 mg tablet RxNorm: 172371 1 Tablet(s) PO Q8 PRN No Start Date 04/06/2012 Inactive cyclobenzaprine 10 mg tablet RxNorm: 526191 1 Tablet(s) PO TID as needed No Start Date 10/26/2017 Inactive hydrocodone-acetaminophen 5 mg-500 mg Cap RxNorm: 119975 1 Capsule(s) PO Q6 PRN No Start Date 10/26/2011 Inactive Phenergan-Codeine 6.25 mg-10 mg/5 mL syrup RxNorm: 643806 5 Milliliter(s) PO Q6 as needed cough No Start Date 07/19/2017 Inactive diclofenac sodium 75 mg tablet,delayed release RxNorm: 722040 2 Tablet(s) PO BID No Start Date 03/24/2016 Inactive Zithromax Z-Rangel 250 mg tablet RxNorm: 145329 Tablet(s) PO UD No Start Date 03/22/2012 Inactive orphenadrine citrate ER 100 mg Tab RxNorm: 317278 1 Tablet(s) PO BID No Start Date 05/19/2016 Inactive scopolamine 1.5 mg transdermal patch (1 mg over 3 days) RxNorm: 712298 2 Patch TD q 3 days No Start Date 07/08/2016 Inactive Fish Oil 1,000 mg Cap RxNorm: 3 Capsule(s) PO daily No Start Date 04/29/2013 Inactive Macrodantin 50 mg Cap RxNorm: 253661 1 Capsule(s) PO daily No Start Date 10/07/2014 Inactive hydrochlorothiazide 50 mg Tab RxNorm: 779906 1 Tablet(s) PO daily No Start Date 11/10/2011 Inactive Medication Administered Medication Codes Instructions Start Date Status ceftriaxone 500 mg solution for injection RxNorm: 6160225 1Gram 09/14/2017 No longer Active ceftriaxone 500 mg solution for injection RxNorm: 6836276 08/09/2017 No longer Active ceftriaxone 500 mg solution for injection RxNorm: 7679296 1Milliliter 08/08/2017 No longer Active Kenalog 40 mg/mL suspension for injection RxNorm: 0893396 Milliliter 09/27/2016 No longer Active promethazine 25 mg/mL injection solution RxNorm: 717093 1Milliliter 10/30/2013 No longer Active ketorolac 60 mg/2 mL intramuscular solution RxNorm: 341483 2Milliliter 10/30/2013 No longer Active Kenalog 40 mg/mL Susp for Injection RxNorm: 0842999 2Milliliter 07/06/2013 No longer Active Influenza Virus Vaccine 0.5 mL RxNorm: 06/28/2012 No longer Active Pneumovax 23 25 mcg/0.5 mL Injection RxNorm: 276717 Milliliter 06/28/2012 No longer Active ketorolac 60 mg/2 mL IM RxNorm: 609563 2Milliliter 08/31/2011 No longer Active Kenalog 40 mg/mL Susp for Injection RxNorm: 8959477 1.5Milliliter 08/18/2011 No longer Active Rocephin 500 mg Solution for Injection RxNorm: 779970 1Milliliteras doctor directed 05/21/2011 No longer Active [...] NO Growth Day 2 06/23/2017 Culture Urine [id number] URINE CULTURE SEE NOTES 06/13/2017 Culture Urine [id number] Continued Results 06/13/2017 Urine Culture Ucult Complete >100,000 col/ml aerobic growth sent to ref lab 06/11/2017 Cbc With Differential Ord2 WBC 5.22 K/ul 06/10/2017 Cbc With Differential Ord2 RBC 3.35 M/ul 06/10/2017 Cbc With Differential Ord2 HGB 11.7 g/dl 06/10/2017 Cbc With Differential Ord2 HCT 36.0 % 06/10/2017 Cbc With Differential Ord2 Neut% 56.1 % 06/10/2017 Cbc With Differential Ord2 Lymph% 28.4 % 06/10/2017 Cbc With Differential Ord2 MCV 107.5 fl 06/10/2017 Cbc With Differential Ord2 [place]% 10.7 % 06/10/2017 Cbc With Differential Ord2 MCH 34.9 pg 06/10/2017 Cbc With Differential Ord2 MCHC 32.5 pg 06/10/2017 Cbc With Differential Ord2 Eos% 4.4 % 06/10/2017 Cbc With Differential Ord2 Baso% 0.4 % 06/10/2017 Cbc With Differential Ord2 PLT 358 K/ul 06/10/2017 Cbc With Differential Ord2 RDW 13.3 % 06/10/2017 Cbc With Differential Ord2 Neut ABS# 2.93 K/ul 06/10/2017 Cbc With Differential Ord2 Lymph ABS# 1.48 K/ul 06/10/2017 Cbc With Differential Ord2 [place] ABS# 0.6 K/ul 06/10/2017 Cbc With Differential Ord2 Eos ABS# 0.2 K/ul 06/10/2017 Cbc With Differential Ord2 Baso ABS# 0.0 K/ul 06/10/2017 Total T3 Ord42 TT3 0.70 ng/ml 06/10/2017 B12 Bol375 B12 341.00 pg/ml 06/10/2017 Tsh Ord6 hTSH II 0.88 uIU/mL 06/10/2017 Comp Metabolic Tes790 NA 138 mEq/L 06/10/2017 Comp Metabolic Ehq922 K 4.4 mEq/L 06/10/2017 Comp Metabolic Mvf466 CL 104 mEq/L 06/10/2017 Comp Metabolic Jtb005 CO2 27.0 mEq/L 06/10/2017 Comp Metabolic Vxd531 ANION GAP 11 06/10/2017 Comp Metabolic Zvf169 GLUCOSE 86 mg/dL 06/10/2017 Comp Metabolic Kph818 Creat 1.2 mg/dL 06/10/2017 Comp Metabolic Cyq732 eGFR 49 ml/min/1.73m2 06/10/2017 Comp Metabolic Ayx912 BUN 26 mg/dL 06/10/2017 Comp Metabolic Cjh560 B/C Ratio 22.2 Ratio 06/10/2017 Comp Metabolic Xwg418 CALCIUM 9.4 mg/dL 06/10/2017 Comp Metabolic Jxa662 ALK PHOS 48 U/L 06/10/2017 Comp Metabolic Yxt622 AST(SGOT) 28 U/L 06/10/2017 Comp Metabolic Uex149 ALT(SGPT) 29 U/L 06/10/2017 Comp Metabolic Sti214 BILI T 0.5 mg/dL 06/10/2017 Comp Metabolic Zni879 ALBUMIN 4.1 g/dL 06/10/2017 Comp Metabolic Znx988 TPRO 6.3 g/dL 06/10/2017 Comp Metabolic Xif904 GLOB 2.2 g/dL 06/10/2017 Comp Metabolic Sea814 A/G Ratio 1.9 Ratio 06/10/2017 Comp Metabolic Lrw436 Osmo 280 mOsmo 06/10/2017 Cbc With Differential Ord2 WBC 5.3 [...] Ord2 RDW 13.6 % 08/20/2015 Comp Metabolic Pvu036 NA 139 mEq/L 08/20/2015 Comp Metabolic Lrx126 K 4.4 mEq/L 08/20/2015 Comp Metabolic Tww918 CL 104 mEq/L 08/20/2015 Comp Metabolic Tem177 CO2 26.0 mEq/L 08/20/2015 Comp Metabolic Wwf545 ANION GAP 13 08/20/2015 Comp Metabolic Rgy416 GLUCOSE 78 mg/dL 08/20/2015 Comp Metabolic Qwe921 Creat 0.8 mg/dL 08/20/2015 Comp Metabolic Cyl583 eGFR 79 ml/min/1.73m2 08/20/2015 Comp Metabolic Vrv686 BUN 21 mg/dL 08/20/2015 Comp Metabolic Elx498 B/C Ratio 27.3 Ratio 08/20/2015 Comp Metabolic Ydj008 CALCIUM 9.5 mg/dL 08/20/2015 Comp Metabolic Yio309 ALK PHOS 64 U/L 08/20/2015 Comp Metabolic Zcm193 AST(SGOT) 20 U/L 08/20/2015 Comp Metabolic Dga655 ALT(SGPT) 16 U/L 08/20/2015 Comp Metabolic Bnv728 BILI T 0.5 mg/dL 08/20/2015 Comp Metabolic Vci245 ALBUMIN 4.2 g/dL 08/20/2015 Comp Metabolic Bll329 TPRO 7.0 g/dL 08/20/2015 Comp Metabolic Rrd176 GLOB 2.8 g/dL 08/20/2015 Comp Metabolic Uiy890 A/G Ratio 1.5 Ratio 08/20/2015 Comp Metabolic Fgn831 Osmo 279 mOsmo 08/20/2015 Metabolic Ord15 NA [...] Metabolic Ord15 CALCIUM 9.2 mg/dL 04/15/2015 %SAT/TIBC 7335045 TIBC 360 UG/DL 08/22/2013 %SAT/TIBC 4639064 % SATURAT 22 % 08/22/2013 %SAT/TIBC 1087979 UIBC 282 MCG/DL 08/22/2013 IRON TEST [id number] IRON TEST 78 UG/DL 08/22/2013 VIT D TOTL 7822127 VIT D TOTL 74 NG/ML 08/22/2013 CANCEL 9733144 CANCEL FOOTNOTE 08/22/2013 A1C HPLC 2755995 A1C HPLC 70673-0 5.8 % 08/21/2013 TSH 2726382 TSH 0.610 uIU/ML 08/20/2013 CBC 5761219 WBC 6.6 10e9/L 08/20/2013 CBC 4467438 RBC 4.28 10e12/L 08/20/2013 CBC 6746818 HGB 14.1 g/dL 08/20/2013 CBC 9904125 HCT DET 42.7 % 08/20/2013 CBC 4373189 MCV 99.8 fL 08/20/2013 CBC 0514706 MCH 32.9 pg 08/20/2013 CBC 7539538 MCHC 33.0 g/dL 08/20/2013 CBC 5855752 PLT 289 10e9/L 08/20/2013 CBC 6476807 MPV 9.8 fL 08/20/2013 CBC 5838272 AZAEL % 70.3 % 08/20/2013 CBC 6364318 LY % 21.2 % 08/20/2013 CBC 4119501 MON % 7.4 % 08/20/2013 CBC 2299965 EOS % 0.9 % 08/20/2013 CBC 7783291 BASO % 0.2 % 08/20/2013 CBC 4925994 RDW 13.5 % 08/20/2013 CBC 8378748 ABS AZAEL 4.64 10e9/L 08/20/2013 CBC 7188609 ABS LYMPH 1.40 10e9/L 08/20/2013 CBC 5363072 ABS MONO 0.49 10e9/L 08/20/2013 CBC 0239891 ABS EOS 0.06 10e9/L 08/20/2013 CBC 6007063 ABS BASO 0.01 10e9/L 08/20/2013 CBC 2455921 RDW-SD 48.4 fL 08/20/2013 GFR CALC 8122000 GFR AA >60 ML/MIN 08/20/2013 GFR CALC 8677161 GFR NON-AA >60 ML/MIN 08/20/2013 MAGNESIUM 6699644 MAGNESIUM 1.7 MEQ/L 08/20/2013 CHEM 14 4111507 AST 25 U/L 08/20/2013 CHEM 14 4587686 ALT 32 IU/L 08/20/2013 CHEM 14 8678260 BUN 21 MG/DL 08/20/2013 CHEM 14 3516972 ALBUMIN 4.4 GM/DL 08/20/2013 CHEM 14 2533499 CHLORIDE 105 MMOL/L 08/20/2013 CHEM 14 2643608 BILI TOT 0.5 MG/DL 08/20/2013 CHEM 14 0551971 ALK PHOS 50 U/L 08/20/2013 CHEM 14 8657097 SODIUM 139 MMOL/L 08/20/2013 CHEM 14 5268675 CREATININE 0.76 MG/DL 08/20/2013 CHEM 14 2132373 CALCIUM 9.7 MG/DL 08/20/2013 CHEM 14 6827450 POTASSIUM 3.9 MMOL/L 08/20/2013 CHEM 14 0525716 PROT TOT 7.0 GM/DL 08/20/2013 CHEM 14 1769936 GLUCOSE 135 MG/DL 08/20/2013 CHEM 14 9551110 BICARB 27 MMOL/L 08/20/2013 CHEM 14 0135750 ANION GAP 7 MEQ/L 08/20/2013 URINALYSIS NONAUTO W/O SCOPE 25789 Specific [place] 1.015 DateTime(Free Text in Aprima) URINALYSIS NONAUTO W/O SCOPE 20596 PH 6.0 DateTime(Free Text in Aprima) URINALYSIS NONAUTO W/O SCOPE 39948 GLUCOSE NEG DateTime( Free Text in Apr[employer]) URINALYSIS NONAUTO W/O SCOPE 10010 Protein NEG DateTime( Free Text in Aprima) URINALYSIS NONAUTO W/O SCOPE 90208 Blood NEG DateTime(Free Text in Apr[employer]) URINALYSIS NONAUTO W/O SCOPE 19065 Bilirubin NEG DateTime(Free Text in Apr[employer]) URINALYSIS NONAUTO W/O SCOPE 92388 Ketones NEG DateTime( Free Text in Apr[employer]) URINALYSIS NONAUTO W/O SCOPE 72000 Urobilinogen NEG DateTime(Free Text in Apr[employer]) URINALYSIS NONAUTO W/O SCOPE 26453 Nitrite POSITIVE DateTime(Free Text in Aprima) URINALYSIS NONAUTO W/O SCOPE 74168 Leukocytes NEG DateTime(Free Text in ) Review of Systems System Result Effective Dates [...] General 1995 Ears/Nose/Throat lips/teeth/gingiva Overall: benign lips 07/22/2014 None Full Exam - General 1995 Ears/Nose/Throat lips/teeth/gingiva Overall: normal dentition 07/22/2014 None Full Exam - General 1995 Ears/Nose/Throat lips/teeth/gingiva Overall: benign gingiva 07/22/2014 None Full Exam - General 1995 Ears/Nose/Throat lips/teeth/gingiva Overall: no masses 07/22/2014 None Full Exam - General 1995 [...] lips 08/20/2013 None Full Exam - General 1994 Ears/Nose/Throat otoscopic exam Overall: tympanic membranes clear 08/20/2013 None Full Exam - General 1995 Ears/Nose/Throat otoscopic exam Overall: external auditory canals clear 08/20/2013 None Full Exam - General 1995 Respiratory respiratory effort/rhythm Overall: normal rate 08/20/2013 None Full Exam - General 1995 Respiratory respiratory effort/rhythm Overall: no retractions 08/20/2013 [...] 08/20/2013 None Full Exam - General 1994 Psychiatric orientation/consciousness Overall: oriented to person, place and time 08/20/2013 None Full Exam - General 1994 [...] lesions 04/30/2013 None Full Exam - General 1995 Musculoskeletal digits and nails Overall: digits benign 04/30/2013 None Full Exam - General 1995 Musculoskeletal digits and nails Overall: no clubbing 04/30/2013 None Full Exam - General 1995 Musculoskeletal gait and station Overall: normal station 04/30/2013 None Full Exam - General 1995 Musculoskeletal gait and station Overall: normal gait 04/30/2013 None Full Exam - General 1995 Abdomen abdominal exam Overall: no tenderness 04/30/2013 [...] 1995 Ears/Nose/Throat oral cavity/pharynx/larynx Overall: no masses 06/28/2012 [...] nourished 05/24/2012 None Full Exam - General 1994 Ears/Nose/Throat otoscopic exam Overall: external auditory canals clear 05/24/2012 None Full Exam - General 1994 Ears/Nose/Throat [...] Procedure Codes Date THER/PROPH/DIAG INJ SC/IM CPT-4: 41009 09/14/2017 ROCEPHIN, PER 250 MG CPT-4: J0696 09/14/2017 THER/PROPH/DIAG INJ SC/IM CPT-4: 75044 08/09/2017 ROCEPHIN, PER 250 MG CPT-4: J0696 08/09/2017 ROCEPHIN, PER 250 MG CPT-4: J0696 08/08/2017 URINALYSIS NONAUTO W/O SCOPE CPT-4: 71804 06/21/2017 URINALYSIS NONAUTO W/O SCOPE CPT-4: 26452 06/10/2017 PPPS, SUBSEQ VISIT CPT -4: G0439 12/17/2016 THER/PROPH/DIAG INJ SC/IM CPT-4: 10001 09/27/2016 TRIAMCINOLONE ACET INJ NOS CPT-4: J3301 09/27/2016 ADMIN INFLUENZA VIRUS VAC CPT-4: G0008 06/21/2016 FLU VACC 4 EMMA 3 YRS PLUS IM Formatting Model/CDA Sections, Assigned to/Kiki Redding SNOMED CT: [id number] CPT-4: 61342Pyrxeei 06/21/2016 PNEUMOCOCCAL VACC 13 EMMA IM Formatting Model/CDA Sections, Assigned to/Kiki Redding SNOMED CT: [id number] CPT-4: [id number] 07/21/2015 IMMUNIZATION ADMIN CPT -4: 43082 07/21/2015 THER/PROPH/DIAG INJ SC/IM CPT-4: 96117 09/05/2014 TENIVAC TD VACCINE NO PRSRV 7/> IM Assigned to CPT-4: 16442Nusqjhf 09/05/2014 ADMIN INFLUENZA VIRUS VAC CPT-4: G0008 06/14/2014 FLU VAC NO PRSV 4 EMMA 3 YRS+ Assigned to/Kiki Redding CPT-4: 12431Czzyzmr 06/14/2014 04978 EST. PATIENT, LEVEL IV CPT-4: 91167 01/11/2014 URINALYSIS NONAUTO W/O SCOPE CPT-4: 26490 01/11/2014 KETOROLAC TROMETHAMINE INJ CPT-4: J1885 10/30/2013 PROMETHAZINE HCL INJECTION CPT-4: J2550 10/30/2013 ROUTINE VENIPUNCTURE CPT-4: 38757 08/20/2013 INJ TRIGGER POINT 1/2 MUSCL CPT-4: 49963 07/06/2013 IMMUNIZATION ADMIN CPT -4: 18649 06/28/2012 Influenza Virus Vaccine, Split Virus, >3 Yrs, IM CPT-4: 86396 06/28/2012 Pneumococcal Polysaccharide Vaccine, 23-Valent, Ad CPT-4: 17183 06/28/2012 URINALYSIS NONAUTO W/O SCOPE CPT-4: 41849 12/29/2011 KETOROLAC TROMETHAMINE INJ CPT-4: J1885 08/31/2011 THER/PROPH/DIAG INJ SC/IM CPT-4: 23094 08/31/2011 TRIAMCINOLONE ACET INJ NOS CPT-4: J3301 08/17/2011 THER/PROPH/DIAG INJ SC/IM CPT-4: 33242 08/17/2011 URINALYSIS NONAUTO W/O SCOPE CPT-4: 82157 08/17/2011 ROCEPHIN, PER 250 MG CPT-4: J0696 05/21/2011 THER/PROPH/DIAG INJ SC/IM CPT-4: 93952 05/21/2011 Vital Signs Date Vital 09/14/2017 Blood Pressure 1: 126/74 Code : 8480-6 Heart Rate 1: 95 bpm Height: SpO2: 95% Weight: 08/09/2017 Height: Weight: 08/08/2017 Blood Pressure 1: 126/86 Code : 8480-6 BMI: 28.3 Code : 06656-5 Heart Rate 1 : 83 bpm Height: 5'5" SpO2: 98% Weight: 170 lbs 06/10/2017 Blood Pressure 1: 110/72 Code : 8480-6 BMI: 29.1 Code : 42388-3 Heart Rate 1 : 84 bpm Height: 5'5" SpO2: 97% Weight: 175 lbs 03/04/2017 Blood Pressure 1: 102/66 Code : 8480-6 BMI: 28.4 Code : 74129-6 Heart Rate 1 : 91 bpm Height: 5'5" SpO2: 93% Weight: 170 lbs 8 oz 12/17/2016 Blood Pressure 1: 138/76 Code : 8480-6 BMI: 28.8 Code : 84005-3 Heart Rate 1 : 86 bpm Height: [...] Code : 8480-6 BMI: 28.3 Code : 63649-6 Heart Rate 1 : 83 bpm Height: 5'5" SpO2: 94% Weight: 170 lbs 06/21/2016 Blood Pressure 1: 120/80 Code : 8480-6 BMI: 29.3 Code : 35679-9 Heart Rate 1 : 76 bpm Height: 5'6" SpO2: 90% Weight: 179 lbs 05/20/2016 Blood Pressure 1: 130/70 Code : 8480-6 BMI: 29.7 Code : 67018-9 Heart Rate 1 : 79 bpm Height: 5'6" SpO2: 96% Weight: 181 lbs 01/26/2016 Blood Pressure 1: 138/80 Code : 8480-6 BMI: 29.7 Code : 35838-1 Heart Rate 1 : 75 bpm Height: 5'6" SpO2: 95% Weight: 181 lbs 11/12/2015 Blood Pressure 1: 132/62 Code : 8480-6 BMI: 29.2 Code : 06310-9 Heart Rate 1 : 73 bpm Height: 5'6" SpO2: 95% Weight: 178 lbs 09/29/2015 Blood Pressure 1: 140/76 Code : 8480-6 BMI: 29.3 Code : 35310-7 Heart Rate 1 : 69 bpm Height: 5'6" SpO2: 97% Weight: 179 lbs 08/22/2015 Blood Pressure 1: 158/78 Code : 8480-6 Blood Pressure 1: 142/88 Code: 8480-6 BMI: 30.0 Code: 97330-8 Heart Rate 1: 98 bpm Height: 5'6" SpO2: 99% Temperature : 83.9 (C) / 183.0 (F) Weight: 183 lbs 07/21/2015 Blood Pressure 1: 130/88 Code : 8480-6 Blood Pressure 1: 130/90 Code: 8480-6 BMI: 29.8 Code: 03615-4 Heart Rate 1: 64 bpm Height: 5'6" SpO2: 96% Weight: 182 lbs 05/20/2015 Blood Pressure 1: 130/68 Code : 8480-6 Heart Rate 1: 93 bpm Height: 5'6" SpO2: 96% Weight: 01/24/2015 Blood Pressure 1: 128/74 Code : 8480-6 BMI: 29.2 Code : 38689-9 Heart Rate 1 : 88 bpm Height: 5'6" Weight: 178 lbs 12/23/2014 Blood Pressure 1: 102/62 Code : 8480-6 Heart Rate 1: 88 bpm Height: SpO2: 98% Weight: 10/08/2014 Blood Pressure 1: 118/78 Code : 8480-6 BMI: 30.0 Code : 36488-1 Heart Rate 1 : 78 bpm Height: [...] Code : 8480-6 BMI: 30.2 Code : 90010-8 Heart Rate 1 : 84 bpm Height: 5'6" Weight: 184 lbs 08/20/2013 Blood Pressure 1: 132/70 Code : 8480-6 Weight: 07/06/2013 Blood Pressure 1: 126/80 Code : 8480-6 Heart Rate 1: 68 bpm Weight: 04/30/2013 Blood Pressure 1: 122/70 Code : 8480-6 BMI: 30.4 Code : 10442-8 Heart Rate 1 : 64 bpm Height: [...] Code : 8480-6 BMI: 30.5 Code : 60324-5 Heart Rate 1 : 97 bpm Height: 5'5" Weight: 183 lbs 05/21/2011 Blood Pressure 1: 128/78 Code : 8480-6 BMI: 28.4 Code : 38560-2 Heart Rate 1 : 76 bpm Height: [...] well woman exam (65+ years) Lifestyle satisfactory 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 PATIENT, LEVEL III Diagnosis: Cellulitis of left finger[ICD10: L03.012] Chela Crisostomo MD, [facility] CPT-4: 51522 08/08/[id number]) 41214 EST. PATIENT, LEVEL IV Diagnosis: Essential (primary) hypertension[ICD10: I10] Diagnosis: Dysuria[ICD10: R30.0] Diagnosis: Rash and other nonspecific skin eruption[ICD10: R21] Diagnosis: Other insomnia[ICD10: G47.09] Diagnosis: Other fatigue[ICD10: R53.83] Diagnosis: Vitamin B12 deficiency anemia, unspecified[ICD10: D51.9] Chela Crisostomo MD , [facility] CPT-4: 76497 06/10/2017 ([id number]) 04569 EST. PATIENT, LEVEL III Diagnosis: Rash and other nonspecific skin eruption[ICD10: R21] Chela Crisostomo MD, [facility] CPT-4: 57475 03/04/2017 ([id number]) 29623 EST. PATIENT, LEVEL III Diagnosis: Cough[ICD10: R05] Diagnosis: Pneumonia, unspecified organism[ICD10: J18.9] Diagnosis: Pain in left shoulder[ICD10: M25.512] Chela Crisostomo MD, [facility] CPT-4: 25464 11/25/2016 ([id number]) 61378 EST. PATIENT, LEVEL III Diagnosis: Pain in left shoulder[ICD10: M25.512] Diagnosis: Pneumonia, unspecified organism[ICD10: J18.9] Chela Crisostomo MD, [facility] CPT-4: 21933 11/18/2016 ([id number]) 63926 EST. PATIENT, LEVEL IV Diagnosis: Cough[ICD10: R05] Diagnosis: Pneumonia, unspecified organism[ICD10: J18.9] Diagnosis: Hypoxemia[ICD10: R09.02] Chela Crisostomo MD, [facility] CPT-4: 23108 11/11/2016 ([id number]) 14653 EST. PATIENT, LEVEL IV Diagnosis: Encounter for gynecological examination (general) (routine) without abnormal findings[ICD10: Z01.419] Chela Crisostomo MD, [facility] CPT-4: 59736 06/21/2016 ([id number]) 47143 EST. PATIENT, LEVEL IV Diagnosis: Pressure ulcer of right buttock, stage 2[ICD10: L89.312] Diagnosis: Essential (primary) hypertension[ICD10: I10] Diagnosis: Myalgia[ICD10: M79.1] Chela Crisostomo MD, [facility] CPT-4: 08477 05/20/2016 ([id number]) 64820 EST. PATIENT, LEVEL III Diagnosis: Essential (primary) hypertension[ICD10: I10] Diagnosis: Unilateral primary osteoarthritis, right knee[ICD10: M17.11] Chela Crisostomo MD, [facility] CPT-4: 80814 01/26/2016 10016 EST. PATIENT, LEVEL IV Diagnosis: Cutaneous abscess of left upper limb[ICD10: L02.414] Annemarie Crisostomo MD, [facility] CPT-4: 23193 11/12/2015 [id number] EST. PATIENT, LEVEL IV Diagnosis: Essential (primary) hypertension[ICD10: I10] Diagnosis: Localized edema[ICD10: R60.0] Chela Crisostomo MD, [facility] CPT-4: 66985 09/29/2015 ([id number]) 95804 EST. PATIENT, LEVEL III Diagnosis: Essential (primary) hypertension[ICD10: I10] Diagnosis: Localized edema[ICD10: R60.0] Chela Crisostomo MD, [facility] CPT-4: 78814 08/22/2015 ([id number]) 36575 EST. PATIENT, LEVEL IV Diagnosis: Essential (primary) hypertension[ICD10: I10] Diagnosis: Localized edema[ICD10: R60.0] Diagnosis: Pain in leg, unspecified[ICD10: M79.606] Diagnosis: Primary generalized (osteo)arthritis[ICD10: M15.0] Diagnosis: VACCIN STREP PNEUMONIAE[ICD10: Z23] Chela Crisostomo MD, [facility] CPT-4: 11001 07/21/2015 ([id number]) 38965 EST. PATIENT, LEVEL III Diagnosis: Edema[ICD9: 782.3] Diagnosis: Presence of surgical incision[ICD9: V49.89] Paty Crisostomo MD, [facility] CPT-4: 01997 05/20/2015 ([id number]) 18680 EST. PATIENT, LEVEL III Diagnosis: ESSENTIAL HYPERTENSION[ICD9: 401.9] Diagnosis: Leg pain[ICD9: 729.5] Paty Crisostomo MD, [facility] CPT-4: 04587 01/24/2015 ([id number]) 24619 EST. PATIENT, LEVEL III Diagnosis: ESSENTIAL HYPERTENSION[ICD9: 401.9] Paty Crisostomo MD, [facility] CPT-4: 67377 12/23/2014 ([id number] 64535 EST. PATIENT, LEVEL III Diagnosis: ESSENTIAL HYPERTENSION[ICD9: 401.9] Diagnosis: Irritable bowel[ICD9: 564.1] Paty Crisostomo MD, [facility] CPT- 4: 08738 10/08/2014 ([id number] 59324 EST. PATIENT, LEVEL V Diagnosis: ESSENTIAL HYPERTENSION[ICD9: 401.9] Diagnosis: Varicose veins[ICD9: 454.9] Diagnosis: Leg pain[ICD9: 729.5] Diagnosis: Leg cramps[ICD9: 729.82] Diagnosis: Back pain[ICD9: 724.5] Diagnosis: Diarrhea[ICD9: 787.91] Diagnosis: Abdominal pain[ICD9: 789.00] Paty Crisostomo MD, [facility] CPT- 4: 29539 09/24/2014 ([id number]) 88586 EST. PATIENT, LEVEL III Diagnosis: Varicose veins[ICD9: 454.9] Diagnosis: Edema[ICD9: 782.3] Chela Crisostomo MD, [facility] CPT-4: 68977 07/22/2014 ([id number]) 90830 EST. PATIENT, LEVEL IV Diagnosis: Abdominal pain[ICD9: 789.00] Diagnosis: Back pain[ICD9: 724.5] Paty Crisostomo MD, [facility] CPT-4: 41732 01/07/2014 ([id number]) 42545 EST. PATIENT, LEVEL IV Diagnosis: Diarrhea[ICD9: 787.91] Diagnosis: Nausea and vomiting[ICD9: 787.01] Diagnosis: Abdominal pain[ICD9: 789.00] Chela Crisostomo MD, [facility] CPT-4: 16033 10/30/2013 ([id number]) 96611 EST. PATIENT, LEVEL IV Diagnosis: Tinea cruris[ICD9: 110.3] Diagnosis: ESSENTIAL HYPERTENSION[SNOMED: 34758481] Diagnosis: Elevated blood sugar[ICD9: 790.29] Chela Crisostomo MD, [facility] CPT-4: 85370 09/25/2013 ([id number]) 12569 EST. PATIENT, LEVEL IV Diagnosis: Leg cramps[ICD9: 729.82] Diagnosis: ESSENTIAL HYPERTENSION[SNOMED: 74914110] Diagnosis: DEFICIENCY ANEMIA[ICD9: 281.9] Diagnosis: ABN THYROID FUNCT STUDY[ICD9: 794.5] Diagnosis: Abnormal glucose[ICD9: 790.29] Diagnosis: Insomnia[ICD9: 780.52] Diagnosis: Leg pain[ICD9: 729.5] Diagnosis: Fatigue[ICD9: 780.79] Chela Crisostomo MD, [facility] CPT-4: 57853 08/20/2013 38275 EST. PATIENT, LEVEL II Diagnosis: BACKACHE[ICD9: 724.5] Diagnosis: Cervicalgia[ICD9: 723.1] Diagnosis: Spasm of muscle[ICD9: 728.85] Diagnosis: Musculoskeletal disorder and symptoms referable to neck[ICD9: 723.9] Chela Crisostomo MD, [facility] CPT-4: 52560 07/06/2013 32569 EST. PATIENT, LEVEL IV Diagnosis: Health examination of defined subpopulation[ICD9: V70.5] Diagnosis: ESSENTIAL HYPERTENSION[SNOMED: 13836444] Chela Crisostomo MD, [facility] CPT-4: 64428 04/30/2013 ([id number]) 74777 EST. PATIENT, LEVEL III Diagnosis: Diarrhea[ICD9: 787.91] Diagnosis: ALLERGIC RHINITIS[ICD9: 477.9] Paty Crisostomo MD, [facility] CPT- 4: 32105 12/29/2012 ([id number]) 15821 EST. PATIENT, LEVEL III Diagnosis: Unspecified deficiency anemia[ICD9: 281.9] Diagnosis: Abnormal thyroid blood test[ICD9: 794.5] Diagnosis: Abnormal thyroid exam[ICD9: 246.9] Diagnosis: Thinning hair[ICD9: 704.00] [facility] CPT- 4: 63795 10/26/2012 ([id number]) 92333 EST. PATIENT, LEVEL III Diagnosis: ESSENTIAL HYPERTENSION[SNOMED: 87367424] Diagnosis: EDEMA[ICD9: 782.3] Paty Crisostomo MD, [facility] CPT-4: 31983 07/12/2012 ([id number]) 08303 EST. PATIENT, LEVEL IV Diagnosis: ESSENTIAL HYPERTENSION[SNOMED: 89025907] Diagnosis: EDEMA[ICD9: 782.3] Diagnosis: VAC STREP PNEUMONIAE-FLU[ICD9: V06.6] Chela Crisostomo MD, [facility] CPT-4: 96871 06/28/2012 ([id number]) 70423 EST. PATIENT, LEVEL III Diagnosis: ESSENTIAL HYPERTENSION[SNOMED: 08154015] Paty Crisostomo MD, [facility] CPT-4: 41828 05/24/2012 ([id number]) 03653 EST. PATIENT, LEVEL IV Diagnosis: ESSENTIAL HYPERTENSION[SNOMED: 31667426] Diagnosis: EDEMA[ICD9: 782.3] Diagnosis: Bibasilar crackles[ICD9: 786.7] Paty Crisostomo MD, [facility] CPT- 4: 53100 05/09/2012 20298 EST. PATIENT, LEVEL IV Diagnosis: Acute pharyngitis[ICD9: 462] Diagnosis: Diarrhea[ICD9: 787.91] Chela Crisostomo MD, [facility] CPT-4: 56026 01/31/2012 34972 EST. PATIENT, LEVEL IV Diagnosis: Diarrhea[ICD9: 787.91] Diagnosis: Urinary tract infection[ICD9: 599.0] Diagnosis: ESSENTIAL HYPERTENSION[SNOMED: 09464954] Chela Crisostomo MD, [facility] CPT-4: 23710 12/29/2011 74547 EST. PATIENT, LEVEL IV Diagnosis: Abnormal bruising[ICD9: 782.9] Diagnosis: NSAID long-term use[ICD9: V58.64] Diagnosis: ESSENTIAL HYPERTENSION[SNOMED: 25060293] Chela Crisostomo MD, [facility] CPT-4: 75030 12/20/2011 22720 EST. PATIENT, LEVEL III Diagnosis: Hip pain, right[ICD9: 719.45] Diagnosis: Fall on same level from slipping, tripping, or stumbling[ICD9: E885.9 ] Diagnosis: ESSENTIAL HYPERTENSION[SNOMED: 21731608] Chela Crisostomo MD, [facility] CPT-4: 08089 08/31/2011 83280 EST. PATIENT, LEVEL III Diagnosis: Back pain[ICD9: 724.5] Diagnosis: Sciatica[ICD9: 724.3] Chela Crisostomo MD, [facility] CPT-4: 04016 08/17/2011 [id number] EST. PATIENT, LEVEL IV Diagnosis: ACUTE PYELONEPHRITIS[ICD9: 590.10] Diagnosis: RENAL & URETERAL DIS NOS[ICD9: 593.9] Diagnosis: LUMBAGO[ICD9: 724.2] Paty Crisostomo MD, [facility] CPT-4: 60611 05/21/2011 Plan of Care Planned Activity Notes [...] acute concerns. 09/14/2017 Appointment: Annemarie Gibson WPtel: [address] [place], [place] [phone] (15 min) Moderate 09/14/2017 Patient Education: Patient [...] warmth, discharge. 08/08/2017 Appointment: Chela Camara WPtel: [phone] (10 min) Simple 08/08/2017 Patient Education: Patient [...] any worse 06/10/2017 Appointment: Chela Camara WPtel: [phone] (30 min) Complex 06/10/2017 Patient Education: Patient Medication Summary Completed 06/10/2017 Visit Plan: Nxbu-zmkwvfh-nuoswhk today in the office-will start patient on anti viral medication as well as antibiotics and follow up in the office in 10 days, sooner if needed. 03/04/2017 Appointment: Chela Camara WPtel: [phone] (15 min) Moderate 03/04/2017 Patient Education: Patient [...] care surrogate. 12/17/2016 Appointment: Chela Camara WPtel: [address] [place], [place] [phone] [facility] - Annual Wellness Visit 12/17/2016 Patient Education: Patient Medication Summary Completed 12/17/2016 Visit Plan: Pneumonia-symptoms have resolved-no further follow up needed Left shoulder pain-suspect rotator cuff injury-recommend MRI- patient will consider-wants to rest for now and will let us know if she wants MRI 11/25/2016 Appointment: Chela Camara WPtel: [address] [place], [place] [phone] (30 min) Complex 11/25/2016 Patient Education: Patient Medication Summary Completed 11/25/2016 Visit Plan: Left shoulder/arm pain-recent fall-xray shoulder and arm Pneumonia-follow up-symptoms improved-repeat chest xray 11/18/2016 Appointment: Chela Camara WPtel: [address] [place], [place] [phone] (30 min) Complex 11/18/2016 Patient Education: Patient Medication Summary Completed 11/18/2016 Visit Plan: Pneumonia-continue antibioitic for 5 additional days-start albuterol nebulizer as directed-continue advair as directed-will continue oxygen due to hypoxemia-oxygen saturation 86% on room air at rest today in the office. Follow up in the office in 1 week-sooner if needed. 11/11/2016 Appointment: Chela Camara WPtel: [address] [place], [place] [phone] (30 min) Complex 11/11/2016 Patient Education: Patient [...] or prn. 06/21/2016 Appointment: Chela Camara WPtel: [phone] (15 min) Moderate 06/21/2016 Patient Education: Patient [...] in blood pressure readings at home. Chronic ozkb-xenzakusfxqd-gattq cymbalta 30mg daily-refill hydrocodone for prn use 05/20/2016 Appointment: Chela Camara WPtel: [phone] (30 min) Complex 05/20/2016 Patient Education: Patient Medication Summary Completed 05/20/2016 Care Plan: SCREENINGMAMMOGRAPHYDIGITAL LOINC : 54124-6 Pending 05/20/2016 Visit Plan: Hypertension - well controlled - continue with current medications, continue with no added salt diet. Pt has been encouraged to exercise daily. The pt has been advised to call the office if there are any acute concerns about change in blood pressure readings at home. DJD right knee- planning to have knee replacement next month with Dr Smyth at [facility] 01/26/2016 Appointment: Chela Camara WPtel: [facility]9 [phone] (15 min) Moderate 01/26/2016 Patient Education: Patient Medication Summary Completed 01/26/2016 Care Plan: Referral Order SNOMED-CT : [id number] Ordered 11/19/2015 Visit Plan: Abscess/Cellulitis - The [...] peripheral edema. 08/22/2015 Appointment: Chela Camara WPtel: [address] [place], [place] [phone] (30 min) [facility] 08/22/2015 Patient Education: Patient Medication Summary Completed [...] fracture-refill hydrocodone 01/24/2015 Appointment: Chela Camara WPtel: [phone] Follow up 01/24/2015 Patient Education: Patient Medication Summary Completed 01/24/2015 Patient Education: Hypertension Completed 01/24/2015 Visit Plan: Hypertension - well controlled - continue with current medications, continue with no added salt diet. The pt has been advised to call the office if there are any acute concerns about change in blood pressure readings at home. 12/23/2014 Appointment: Paty Crisostomo WPtel: [facility] [place] [address] follow up 12/23/2014 Patient Education: Patient Medication Summary Completed 12/23/2014 Patient Education: Hypertension Completed 12/23/2014 Appointment: Paty Crisostomo WPtel: [address] [place], [place] [phone] Follow up 12/10/2014 Visit Plan: Hypertension - [...] bowel movements. 10/08/2014 Appointment: Paty Crisostomo WPtel: [facility]5 [facility]66[facility] Follow up 10/08/2014 Patient Education: Patient Medication Summary Completed 10/08/2014 Patient Education: Hypertension Completed 10/08/2014 Care Plan: Referral Order SNOMED-CT : [id number] Ordered 10/08/2014 Visit Plan: Hypertension - uncontrolled [...] - and hopefully with treatment, some of Payal' pain will improve. Pt to use voltaren [...] Summary Completed 07/22/2014 Appointment: [facility] Crisost[facility] WPtel[facility] [phone] [facility] [place] Injection 06/14/2014 Patient Education: Patient Medication Summary Completed 06/14/2014 Patient Education: Patient Medication Summary Completed 06/13/2014 Visit Plan: Abd pain-flank jviz-jzdragajueokpc-krwlvmrmr with Dr Crisostomo-plan for outpatient IV fluids and IV antibiotics as well as pain medicaton while allowing her bowels to rest. Patient verbalized understanding of plan. 01/11/2014 Appointment: Chela Camara WPtel: [phone] [phone] [place] Sick 01/11/2014 Patient Education: Patient Medication Summary [...] Medication Summary Completed 01/07/2014 Visit Plan: Abdominal dactffct-upjqwjro-cgzda flagyl and probiotic and monitor symptoms. Call or go to ER for any worsening or worrisome symptoms. Recommend clear liquid diet advance to bland as tolerated. Toradol and phenergan injfections today in the office for acute symptoms. Patient verbalized understanding of plan. 10/30/2013 Appointment: Chela Camara WPtel: [phone] [facility] 10/30/2013 Patient Education: Patient Medication Summary Completed [...] requip for restless leg syndrome. Elevated blood ioorfw-tlbndeqsb-lflpwcgf episodes-check Hgb A1C and TSH Fatigue-check labs 08/20/2013 Appointment: Chela Camara WPtel: [address] [place], [place] [phone] Other 08/20/2013 Patient Education: Patient Medication Summary [...] disease process. 07/06/2013 Appointment: Chela Camara WPtel: [address] [place], [place] [phone] Other 07/06/2013 Patient Education: Patient Medication Summary Completed 07/06/2013 Visit Plan: Hypertension - well controlled - continue with current medications, continue with no added salt diet. Pt has been encouraged to exercise daily. The pt has been advised to call the office if there are any acute concerns about change in blood pressure readings at home. 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 04/30/2013 Appointment: Chela Camara WPtel: [phone] [phone] Other 04/30/2013 Patient Education: Patient Medication Summary [...] lab report. 10/26/2012 Appointment: Paty Crisostomo WPtel: [phone] [facility] [place] Other 10/26/2012 Patient Education: Patient Medication Summary [...] peripheral edema. 07/12/2012 Appointment: Paty Crisostomo WPtel: [phone] [facility] Follow up 07/12/2012 Patient Education: Patient Medication Summary Completed 07/12/2012 Patient Education: High Blood Pressure: Essential Hypertension Completed 2011 Appointment: [place] [phone] [facility] Follow up 07/03/2012 Visit Plan: Hypertension - [...] office 06/28/2012 Appointment: Chela Camara WPtel: [phone] [phone] Other 06/28/2012 Patient Education: Patient Medication Summary [...] READINGS. 05/24/2012 Appointment: Chela Camara WPtel: [phone] [phone] Follow up 05/24/2012 Patient Education: Patient Medication [...] use compression socks from toes to thighs. Csevoujk-ffgbi-wconh xray and labs-will proceed as indicated 05/09/2012 Appointment: Chela Camara WPtel: [phone] [place] Other 05/09/2012 Patient Education: Patient Medication Summary [...] of plan. 01/31/2012 Appointment: Chela Camara WPtel: [phone] Other 01/31/2012 Patient Education: Patient Medication Summary [...] acute concerns. 12/29/2011 Appointment: Chela Camara WPtel: [address] [place] [address] Other 12/29/2011 Patient Education: Patient Medication Summary [...] at home. 12/20/2011 Appointment: Chela Camara WPtel: [facility] [place] [phone] Other 12/20/2011 Patient Education: Patient Medication Summary [...] at home. 08/31/2011 Appointment: Chela Camara WPtel: [address] [place] [address] Other 08/31/2011 Patient Education: Patient Medication Summary [...] treatment indicated. 08/17/2011 Appointment: Chela Camara WPtel: [address] [place], [place] [phone] Other 08/17/2011 Patient Education: Patient Medication Summary Completed 08/17/2011 Patient Education: .Amazing charts Exercise for Sciatica Completed 08/17/2011 Visit Plan: Pyelonephritis - stop nitrofurantoin - starton levofloxacin 500mg qday x [address] scan scheduled for @ 4:15pm Start the levofloxacin tonight, start on a probiotic, such as [place] or Shopliment to prevent diarrhea while on the antibiotic. Back pain - due to pyelonephritis - call if not improved. 05/21/2011 Appointment: Paty Crisostomo WPtel: [phone] [facility] Follow up 05/21/2011 Patient Education: Patient Medication Summary Completed 05/21/2011 Referral: Alber Ellison Referral Initiated Referral: Alber Ellison they will make appt Initiated Referral: Vivian Coy Referral Appointment Requested Instructions Comment . Cellulitis - continue with oral antibiotics (SWITCHED TO BACTRIM PER CULTURE REPORT +MRSA) as previously directed, return to clinic as previously directed, call for acute change in symptoms, worsening redness, warmth, discharge. Rocephin injection today -continue doxycycline -return tomorrow for wound check- culture should be back tomorrow . Hypertension - well controlled - continue [...] weight-RX for metformin culture rash buttock . Xvzr-jfmcszb-xbltkup today in the office-will start patient on anti viral medication as well as antibiotics and follow up in the office in 10 days, sooner if needed. INCREASE GABAPENTIN TO 3 CAPSULES IN THE [...] replacement next month with Dr Smyth at [facility] . Abdominal pain - pt has history of pyelonephritis - happened in 2010 - recommended pt to have ct scan, check labs - and will start antibiotic after labs are obtained. The ct scan and labs have been ordered STAT. review of Payal's chart reveals in 2011 she had pyelonephritis on the right side, will re-eval with ct scan Strep swab today in the office-we will [...] well. Patient verbalized understanding of plan. . Left shoulder/arm pain-recent fall-xray shoulder and arm Pneumonia-follow up-symptoms improved-repeat chest xray albuterol nebulizer REPEAT XRAY CHEST NEXT WEEK-ALSO XRAY LEFT SHOULDER/HUMERUS . Pneumonia- continue antibioitic for 5 additional days-start albuterol nebulizer as directed -continue advair as directed-will continue oxygen due to hypoxemia-oxygen saturation 86% on room air at rest today in the office. Follow up in the office in 1 week-sooner if needed. Stop hydrochlorathiazide Start bystolic 10mg daily Monitor [...] use compression socks from toes to thighs. Ordnewrg-itwac-icdcb xray and labs-will proceed as indicated . Pneumonia-symptoms have resolved-no further follow up needed Left shoulder pain-suspect rotator cuff injury-recommend MRI-patient will consider-wants to rest for now and will let us know if she wants MRI Stop the naproxen Take 1 celebrex in [...] change in blood pressure readings at home. compression hose check labs . Edema - pt has been advised to elevate legs to prevent dependent edema, compression has been recommended to help to naturally decrease peripheral edema. Diuretic use has been discussed and pt has been instructed in appropriate use of such medication as necessary to further attempt to reduce peripheral edema. PROBIOTIC TWICE DAILY. Abdominal zbykeqhd-vttmzirl-rjmrd flagyl and probiotic and monitor symptoms. Call [...] diet when having loose bowel movements. . Thinning hair, fatigue, enlarged neck - recommended thyroid ultrasound, check labs, and monitor symptoms. Pt has been recommended pt to consider changing hair products, consider starting on rogaine and we will call her with lab report. AMLODIPINE 5MG DAILY MONITOR BLOOD PRESSURE AND [...] to further attempt to reduce peripheral edema. Xray right hip-we will call you with [...] in blood pressure readings at home. . Hypertension - well controlled - continue with current medications, continue with no added salt diet. Pt has been encouraged to exercise daily. The pt has been advised to call the office if there are any acute concerns about change in blood pressure readings at home. 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 pneumonia 21 due in June . Medicare [...] her DOPA paperwork for health care surrogate. . Edema - pt has been advised [...] with Dr Smyth ( surgeon) on Tuesday . Abscess/Cellulitis - Left ring finger - [...] pustular drainage, or any other acute concerns. Macrobid 100mg po BID x 10 days [...] is to call for acute concerns. . Pyelonephritis - stop nitrofurantoin - starton levofloxacin 500mg qday x [address] scan scheduled for @ 4:15pm Start the levofloxacin tonight, start on a probiotic, such as [place] or Sh[place] to prevent diarrhea while on the antibiotic. [...] in blood pressure readings at home. Chronic wltq-skactrrunaws-dhfjw cymbalta 30mg daily-refill hydrocodone for prn use [...] year, otherwise, RTC yearly or prn. . Diarrhea - recommended bland diet, low [...] No further treatment indicated. . Abd pain-flank kxhy-donoskcrlxhryy-zlmzpeygj with Dr Crisostomo-plan for outpatient IV fluids and IV antibiotics as well as pain medicaton while allowing her bowels to rest. Patient verbalized understanding of plan. RETURN TOMORROW MORNING FOR DRESSING [id number] OF FINGER . Cellulitis - continue with oral antibiotics as previously directed, return to clinic as previously directed, call for acute change in symptoms, worsening redness, warmth, discharge. . Leg cramps-plan to check labs including magnesium, iron, and vitamin D levels-if okay, may consider trial of requip for restless leg syndrome. Elevated blood zbjnvy-urfvbulyh-vcrvkeoj episodes-check Hgb A1C and TSH Fatigue-check labs [...] pneumonia vaccines today in the office . Trigger Points - Injected trigger points today, pt given post-injection instructions, signs and symptoms for which to call the office. Pt to use heat to the muscles today, and take an anti-inflammatory today unless otherwise contraindicated by renal function or other disease process.
--- OUTSIDE RECORDS SUMMARY | 2017-11-27 08:30 | XMS REPORT | CCD ---
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 Role Phone PP Unavailable CCM Unavailable Summary Purpose Interface Exchange Insurance Providers Payer name Policy type / Coverage type Covered democrat ID Effective Begin Date Effective End Date WPS Medicare Part B [id number] 2014 Unknown [employer] [id number] 2014 Unknown Family history Mother Diagnosis Age At Onset No Family Disease Entered N/A Father Diagnosis Age At Onset No Family Disease Entered N/A Social History Social History Element Codes Description Effective Dates Marital status Unknown 08/18/2011 Employment Unknown 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 08/18/[address]: 287959130 Nonsmoker 08/18/[address]: 868651 Currently drinks alcohol 08/18/2011 Frequency of drinks SNOMED CT: 249444281 Drinks rarely rum occasionally 08/18/2011 Allergies, Adverse [...] Start Date Stop Date Status Fill Instructions hydrocodone 10 mg-acetaminophen 325 mg tablet RxNorm: 887765 1 Tablet(s) PO Q4 PRN TAKE ONE TABLET BY MOUTH EVERY 4 HOURS NEEDED FOR PAIN 09/20/2017 10/19/2017 Active amlodipine 5 mg tablet RxNorm: 854546 TAKE ONE TABLET BY MOUTH DAILY 09/20/2017 03/18/2018 Active mupirocin 2 % topical ointment RxNorm: 273253 1 Application TOP BID 09/16/2017 No Stop Date Active ceftriaxone 500 mg solution for injection RxNorm: 4810694 1 Gram(s) Inj 09/14/2017 09/14/2017 Inactive Cymbalta 30 mg capsule,delayed release RxNorm: 422025 TAKE ONE CAPSULE BY MOUTH DAILY 08/15/2017 11/07/2018 Active clindamycin 300 mg capsule RxNorm: 034436 1 Capsule(s) PO TID 08/10/2017 08/16/2017 Inactive clindamycin 300 mg capsule RxNorm: 779565 1 Capsule(s) PO TID 08/10/2017 08/09/2017 Inactive ceftriaxone 500 mg solution for injection RxNorm: 6509143 Inj 08/09/2017 08/09/2017 Inactive Bactrim DS 800 mg-160 mg tablet RxNorm: 211492 1 Tablet(s) PO BID 08/09/2017 08/15/2017 Inactive ER CHANGED BASED ON CULTURE REPORT trazodone 50 mg tablet RxNorm: 727052 1.5 Tablet(s) PO QHS 02/03/2018 Active Requip 0.5 mg tablet RxNorm: 098258 1 Tablet(s) PO QHS TAKE ONE TABLET BY MOUTH DAILY 08/08/2017 02/03/2018 Active ceftriaxone 500 mg solution for injection RxNorm: 4805395 1 Milliliter(s) Inj 08/08/2017 08/08/2017 Inactive hydrocodone 10 mg-acetaminophen 325 mg tablet RxNorm: 735672 1 Tablet(s) PO Q4 PRN TAKE ONE TABLET BY MOUTH EVERY 4 HOURS NEEDED FOR PAIN 08/08/2017 09/06/2017 Inactive Phenergan-Codeine 6.25 mg-10 mg/5 mL syrup RxNorm: 623964 5 Milliliter(s) PO Q6 as needed cough 07/20/2017 No Stop Date Active trazodone 50 mg tablet RxNorm: 373189 1/2-1 Tablet(s) PO QHS 08/07/2017 Inactive 1/2 TO 1 tablet, NOT 1.5 tablet diclofenac sodium 75 mg tablet,delayed release RxNorm: 008883 TAKE TWO TABLETS BY MOUTH TWICE A DAY 06/28/2017 08/26/2017 Inactive Voltaren 1 % topical gel RxNorm: 857809 APPLY TOPICALLY FOUR TIMES A DAY 06/24/2017 06/18/2018 Active prednisone 20 mg tablet RxNorm: 051453 2 Tablet(s) PO daily 11/201606/20/2017 Inactive ketoconazole 2 % topical cream RxNorm: 341633 1 Application TOP BID 06/21/2017 06/30/2017 Inactive right neck and groin ketoconazole 2 % topical cream RxNorm: 567218 1 Application TOP BID 06/21/2017 06/20/2017 Inactive right neck and groin hydrocodone 10 mg-acetaminophen 325 mg tablet RxNorm: 985781 1 Tablet(s) PO Q4 PRN TAKE ONE TABLET BY MOUTH EVERY 4 HOURS NEEDED FOR PAIN 06/21/2017 07/20/2017 Inactive prednisone 20 mg tablet RxNorm: 967996 2 Tablet(s) PO daily 11/201606/25/2017 Inactive Augmentin 500 mg-125 mg tablet RxNorm: 606173 1 Tablet(s) PO TID 06/13/2017 06/12/2017 Inactive take probiotice BID x7 Augmentin 500 mg-125 mg tablet RxNorm: 280468 1 Tablet(s) PO TID 06/13/2017 06/19/2017 Inactive take probiotice BID x7 triamcinolone acetonide 0.5 % topical cream RxNorm: 9774855 1 Application TOP BID 06/10/2017 06/19/2017 Inactive trazodone 50 mg tablet RxNorm: 924125 1/2-1 Tablet(s) PO QHS 07/13/2017 Inactive hydrocodone 10 mg-acetaminophen 325 mg tablet RxNorm: 059235 1 Tablet(s) PO Q4 PRN TAKE ONE TABLET BY MOUTH EVERY 4 HOURS NEEDED FOR PAIN 04/08/2017 05/07/2017 Inactive Benicar 40 mg tablet RxNorm: 535648 TAKE ONE TABLET BY MOUTH DAILY 03/16/2017 12/10/2017 Active acyclovir 800 mg tablet RxNorm: 830206 TAKE ONE TABLET BY MOUTH FOUR TIMES A DAY 03/16/2017 03/25/2017 Inactive Bactrim DS 800 mg-160 mg tablet RxNorm: 557542 1 Tablet(s) PO BID 03/07/2017 03/13/2017 Inactive Bactrim DS 800 mg-160 mg tablet RxNorm: 981599 1 Tablet(s) PO BID 03/07/2017 03/06/2017 Inactive mupirocin 2 % topical ointment RxNorm: 160224 1 Application TOP BID 03/07/2017 03/06/2017 Inactive mupirocin 2 % topical ointment RxNorm: 414431 1 Application TOP BID 03/07/2017 03/16/2017 Inactive acyclovir 800 mg tablet RxNorm: 830838 1 Tablet(s) PO QID 03/0403/13/2017 Inactive Keflex 500 mg capsule RxNorm: 944311 1 Capsule(s) PO TID 201603/06/2017 Inactive amlodipine 5 mg tablet RxNorm: 007103 TAKE ONE TABLET BY MOUTH DAILY 02/22/2017 08/20/2017 Inactive gabapentin 100 mg capsule RxNorm: 044013 TAKE TWO CAPSULES BY MOUTH EVERY MORNING AND TAKE THREE CAPSULES BY MOUTH EVERY EVENING NEEDED 02/01/2018 Active Macrodantin 50 mg capsule RxNorm: 463094 TAKE ONE CAPSULE BY MOUTH DAILY 02/07/2017 02/01/2018 Active Cymbalta 30 mg capsule,delayed release RxNorm: 703756 TAKE ONE CAPSULE BY MOUTH DAILY 02/07/2017 08/05/2017 Inactive Requip 0.5 mg tablet RxNorm: 111105 TAKE ONE TABLET BY MOUTH DAILY 01/21/2017 02/17/2017 Inactive estradiol 0.5 mg tablet RxNorm: 503342 Tablet(s) TAKE ONE-HALF TABLET BY MOUTH TWO TIMES A DAY 01/18/2017 01/12/2018 Active fenofibrate nanocrystallized 145 mg tablet RxNorm: 230888 TAKE ONE TABLET BY MOUTH DAILY 01/18/2017 01/12/2018 Active Zetia 10 mg tablet RxNorm: 576035 TAKE ONE TABLET BY MOUTH DAILY 01/18/2017 01/12/2018 Active Zetia 10 mg tablet RxNorm: 030582 TAKE ONE TABLET BY MOUTH DAILY 01/18/2017 01/17/2017 Inactive hyoscyamine ER 0.375 mg tablet,extended release,12 hr RxNorm: 7631696 TAKE ONE TABLET BY MOUTH TWICE A DAY 01/10/2017 Inactive Flonase 50 mcg/actuation nasal spray,suspension RxNorm: 6941589 1 May NASAL each nare daily 12/17/2016 04/15/2017 Inactive [SAVINGS FOR UNINSURED PATIENTS -- BIN:[id number], PCN: ASPROD1, Group: [facility], ID# [id number], Process claim through [employer], for questions: . THIS IS NOT INSURANCE.] Voltaren 1 % topical gel RxNorm: 701569 APPLY TOPICALLY FOUR TIMES A DAY 12/17/2016 03/26/2017 Inactive hydrocodone 10 mg-acetaminophen 325 mg tablet RxNorm: 087771 1 Tablet(s) PO Q4 PRN TAKE ONE TABLET BY MOUTH EVERY 4 HOURS NEEDED FOR PAIN 12/17/2016 01/15/2017 Inactive (Appended: Controlled substance eRx refill - RxReferenceNumber: [id number]) diclofenac sodium 75 mg tablet,delayed release RxNorm: 607411 TAKE TWO TABLETS BY MOUTH TWICE A DAY 11/22/2016 05/20/2017 Inactive Cymbalta 30 mg capsule,delayed release RxNorm: 488815 TAKE ONE CAPSULE BY MOUTH DAILY 11/22/2016 02/06/2017 Inactive albuterol sulfate 2.5 mg/0.5 mL solution for nebulization RxNorm: 907250 3 Milliliter(s) INH Q4 PRN 11/11/2016 No Stop Date Active Levaquin 500 mg tablet RxNorm: 568121 1 Tablet(s) PO daily 11/15/2016 Inactive Zetia 10 mg tablet RxNorm: 914807 TAKE ONE TABLET BY MOUTH DAILY 10/21/2016 10/27/2016 Inactive fenofibrate nanocrystallized 145 mg tablet RxNorm: 129675 TAKE ONE TABLET BY MOUTH DAILY 10/21/2016 01/17/2017 Inactive estradiol 0.5 mg tablet RxNorm: 991520 TAKE ONE-HALF TABLET BY MOUTH TWO TIMES A DAY 10/20/2016 01/17/2017 Inactive Kenalog 40 mg/mL suspension for injection RxNorm: 7197168 Milliliter(s) Inj 09/27/2016 09/27/2016 Inactive hydrocodone 10 mg-acetaminophen 325 mg tablet RxNorm: 880135 1 Tablet(s) PO Q4 PRN TAKE ONE TABLET BY MOUTH EVERY 4 HOURS NEEDED FOR PAIN 09/21/2016 10/20/2016 Inactive (Appended: Controlled substance eRx refill - RxReferenceNumber: [id number]) Flonase 50 mcg/actuation nasal spray,suspension RxNorm: 5375083 1 May NASAL each nare daily 09/03/2016 12/16/2016 Inactive [SAVINGS FOR UNINSURED PATIENTS -- BIN:863794, PCN: ASPROD1, [facility], ID# [id number], Process claim through [employer], for questions: . THIS IS NOT INSURANCE.] amlodipine 5 mg tablet RxNorm: 032842 TAKE ONE TABLET BY MOUTH DAILY 08/19/2016 02/14/2017 Inactive Cymbalta 30 mg capsule,delayed release RxNorm: 994868 TAKE ONE CAPSULE BY MOUTH DAILY 08/17/2016 11/21/2016 Inactive Requip 0.5 mg tablet RxNorm: 008171 TAKE ONE TABLET BY MOUTH DAILY 07/22/2016 07/31/2016 Inactive scopolamine 1.5 mg transdermal patch (1 mg over 3 days) RxNorm: 570826 2 Patch TD q 3 days 07/09/2016 No Stop Date Active scopolamine 1.5 mg transdermal patch (1 mg over 3 days) RxNorm: 572223 2 Patch TD q 3 days 07/09/2016 07/08/2016 Inactive hydrocodone 10 mg-acetaminophen 325 mg tablet RxNorm: 878366 1 Tablet(s) PO Q4 PRN TAKE ONE TABLET BY MOUTH EVERY 4 HOURS NEEDED FOR PAIN 05/20/2016 06/18/2016 Inactive (Appended: Controlled substance eRx refill - RxReferenceNumber: [id number]) Cymbalta 30 mg capsule,delayed release RxNorm: 442673 1 Capsule(s) PO daily 05/20/2016 05/20/2016 Inactive fenofibrate nanocrystallized 145 mg tablet RxNorm: 577297 1 Tablet(s) PO daily 04/29/2016 10/20/2016 Inactive estradiol 0.5 mg tablet RxNorm: 562901 TAKE ONE-HALF TABLET BY MOUTH TWO TIMES A DAY 04/27/2016 10/19/2016 Inactive Zetia 10 mg tablet RxNorm: 042813 TAKE ONE TABLET BY MOUTH DAILY 04/16/2016 10/12/2016 Inactive diclofenac sodium 75 mg tablet,delayed release RxNorm: 660929 2 Tablet(s) PO BID 03/25/2016 07/22/2016 Inactive Benicar 40 mg tablet RxNorm: 293421 1 Tablet(s) PO daily 201503/15/2017 Inactive ok to dispense generic if available hydrocodone 10 mg-acetaminophen 325 mg tablet RxNorm: 079980 1 Tablet(s) PO Q4 PRN TAKE ONE TABLET BY MOUTH EVERY 4 HOURS NEEDED FOR PAIN 03/25/2016 04/23/2016 Inactive (Appended: Controlled substance eRx refill - RxReferenceNumber: [id number]) amlodipine 5 mg tablet RxNorm: 883527 TAKE ONE TABLET BY MOUTH DAILY 02/09/2016 08/06/2016 Inactive Benicar 40 mg tablet RxNorm: 001513 1 Tablet(s) PO daily 201503/24/2016 Inactive ok to dispense generic if available hydrocodone 10 mg-acetaminophen 325 mg tablet RxNorm: 695625 1 Tablet(s) PO Q4 PRN TAKE ONE TABLET BY MOUTH EVERY 4 HOURS NEEDED FOR PAIN 01/26/2016 03/24/2016 Inactive (Appended: Controlled substance eRx refill - RxReferenceNumber: [id number]) gabapentin 100 mg capsule RxNorm: 043665 TAKE TWO CAPSULES BY MOUTH EVERY MORNING AND TAKE THREE CAPSULES BY MOUTH EVERY EVENING NEEDED 11/201502/06/2017 Inactive Zetia 10 mg tablet RxNorm: 900983 TAKE ONE TABLET BY MOUTH DAILY 01/20/2016 04/15/2016 Inactive hyoscyamine ER 0.375 mg tablet,extended release,12 hr RxNorm: 5148142 TAKE ONE TABLET BY MOUTH TWICE A DAY 12/30/201505/2016 Inactive Voltaren 1 % topical gel RxNorm: 397838 APPLY TOPICALLY FOUR TIMES A DAY 12/09/2015 08/04/2016 Inactive doxycycline hyclate 100 mg capsule RxNorm: 7246851 1 Capsule(s) PO BID 11/12/2015 11/21/2015 Inactive Macrodantin 50 mg capsule RxNorm: 238207 1 Capsule(s) PO daily 11/07/2015 01/29/2017 Inactive [SAVINGS FOR UNINSURED PATIENTS -- BIN:235792, PCN: ASPROD1, Group: [facility], ID# [id number], Process claim through [employer], for questions: [phone]. THIS IS NOT INSURANCE.] Requip 0.5 mg tablet RxNorm: 121573 1 Tablet(s) PO daily TAKE ONE TABLET BY MOUTH DAILY 11/06/2015 07/21/2016 Inactive Mobic 15 mg tablet RxNorm: 838658 TAKE ONE TABLET BY MOUTH EVERY DAY 10/21/2015 01/25/2016 Inactive estradiol 0.5 mg tablet RxNorm: 146768 TAKE ONE-HALF TABLET BY MOUTH TWO TIMES A DAY 10/20/2015 04/16/2016 Inactive hydrocodone 10 mg-acetaminophen 325 mg tablet RxNorm: 124034 1 Tablet(s) PO Q4 PRN TAKE ONE TABLET BY MOUTH EVERY 4 HOURS NEEDED FOR PAIN 09/29/2015 11/27/2015 Inactive (Appended: Controlled substance eRx refill - RxReferenceNumber: [id number]) Benicar 40 mg tablet RxNorm: 652571 1 Tablet(s) PO daily 201501/25/2016 Inactive [SAVINGS FOR NON-COVERED DRUGS -- BIN:456579, PCN: ASPROD1, Group: [facility], ID # [id number], Questions: . THIS IS NOT INSURANCE.] Benicar 40 mg tablet RxNorm: 961027 1/2 Tablet(s) PO daily 09/22/2015 Inactive [SAVINGS FOR NON-COVERED DRUGS -- BIN:772330, PCN: ASPROD1, Group: [facility], ID# [id number], Questions: . THIS IS NOT INSURANCE.] scopolamine 1.5 mg transdermal patch (1 mg over 3 days) RxNorm: 901980 1 Patch TD q72 hours 09/09/2015 05/18/2016 Inactive scopolamine 1.5 mg transdermal patch (1 mg over 3 days) RxNorm: 465374 1 TD q72 hours 09/09/2015 09/08/2015 Inactive Requip 0.5 mg tablet RxNorm: 701542 1 Tablet(s) PO daily TAKE ONE TABLET BY MOUTH DAILY 08/22/2015 11/05/2015 Inactive hydrocodone 10 mg-acetaminophen 325 mg tablet RxNorm: 630153 1 Tablet(s) PO Q4 PRN TAKE ONE TABLET BY MOUTH EVERY 4 HOURS NEEDED FOR PAIN 08/22/2015 09/28/2015 Inactive (Appended: Controlled substance eRx refill - RxReferenceNumber: [id number]) fenofibrate nanocrystallized 145 mg tablet RxNorm: 575226 1 Tablet(s) PO daily 08/22/2015 02/17/2016 Inactive amlodipine 5 mg tablet RxNorm: 774558 1 Tablet(s) PO daily 12/201402/08/2016 Inactive gabapentin 100 mg capsule RxNorm: 919631 Capsule(s) PO TAKE THREE CAPSULE PO IN THE AM, 1 AT NOON AND 3 PO IN THE PIOTR 07/21/2015 No Stop Date Active [SAVINGS FOR NON-COVERED DRUGS -- BIN:866452, PCN: ASPROD1, Group: XXXXX, ID# [id number], Questions: . THIS IS NOT INSURANCE.] Zetia 10 mg tablet RxNorm: 234688 1 Tablet(s) PO daily 201401/16/2016 Inactive hydrocodone 10 mg-acetaminophen 325 mg tablet RxNorm: 483827 1 Tablet(s) PO Q4 PRN TAKE ONE TABLET BY MOUTH EVERY 4 HOURS NEEDED FOR PAIN 07/21/2015 08/21/2015 Inactive (Appended: Controlled substance eRx refill - RxReferenceNumber: [id number]) Requip 0.5 mg tablet RxNorm: 014416 TAKE ONE TABLET BY MOUTH DAILY 06/24/2015 08/21/2015 Inactive Benicar 40 mg tablet RxNorm: 295605 1/2 Tablet(s) PO daily 11/201409/14/2015 Inactive [SAVINGS FOR NON-COVERED DRUGS -- BIN:874081, PCN: ASPROD1, Group: X[facility], ID# [id number], Questions: . THIS IS NOT INSURANCE.] hydrocodone 10 mg-acetaminophen 325 mg tablet RxNorm: 845470 1 Tablet(s) PO Q4 PRN TAKE ONE TABLET BY MOUTH EVERY 4 HOURS NEEDED FOR PAIN 04/28/2015 06/26/2015 Inactive (Appended: Controlled substance eRx refill - RxReferenceNumber: [id number]) estradiol 0.5 mg tablet RxNorm: 641018 TAKE ONE-HALF TABLET BY MOUTH TWO TIMES A DAY 04/21/2015 10/17/2015 Inactive Mobic 15 mg tablet RxNorm: 111084 TAKE ONE TABLET BY MOUTH EVERY DAY 03/27/2015 09/22/2015 Inactive hydrochlorothiazide 25 mg tablet RxNorm: 751354 1 Tablet(s) PO daily 03/10/2015 03/09/2015 Inactive hydrochlorothiazide 25 mg tablet RxNorm: 601973 1 Tablet(s) PO daily 03/10/2015 03/23/2015 Inactive hydrocodone 10 mg-acetaminophen 325 mg tablet RxNorm: 432338 1 Tablet(s) PO Q4 PRN TAKE ONE TABLET BY MOUTH EVERY 4 HOURS NEEDED FOR PAIN 01/24/2015 03/24/2015 Inactive (Appended: Controlled substance eRx refill - RxReferenceNumber: [id number]) gabapentin 100 mg capsule RxNorm: 270660 Capsule(s) PO TAKE TWO CAPSULE PO IN THE AM AND 3 PO IN THE PIOTR PRN 01/17/201509/2014 Inactive [SAVINGS FOR NON-COVERED DRUGS -- BIN:861750, PCN: ASPROD1, Group: XXXXX, ID# [id number], Questions: [phone]. THIS IS NOT INSURANCE.] Requip 0.5 mg tablet RxNorm: 198784 TAKE ONE TABLET BY MOUTH EVERY DAY 01/16/2015 05/15/2015 Inactive Requip 0.5 mg tablet RxNorm: 738307 TAKE ONE TABLET BY MOUTH EVERY DAY 01/16/2015 01/15/2015 Inactive Requip 0.5 mg tablet RxNorm: 885238 TAKE ONE TABLET BY MOUTH EVERY DAY 01/16/2015 01/15/2015 Inactive estradiol 0.5 mg tablet RxNorm: 503596 TAKE ONE-HALF TABLET BY MOUTH TWO TIMES A DAY 01/14/2015 04/13/2015 Inactive Benicar 40 mg tablet RxNorm: 343008 1/2 Tablet(s) PO daily 02/201505/21/2015 Inactive [SAVINGS FOR NON-COVERED DRUGS -- BIN:385203, PCN: ASPROD1, Group: XXXXX, ID# [id number], Questions: . THIS IS NOT INSURANCE.] Cymbalta 30 mg capsule,delayed release RxNorm: 328955 1 Capsule(s) PO daily 12/23/2014 05/19/2016 Inactive [SAVINGS FOR NON-COVERED DRUGS -- BIN:588230, PCN: ASPROD1, Group: XXXXX, ID# [id number], Questions: . THIS IS NOT INSURANCE.] Benicar 40 mg tablet RxNorm: 205307 1 Tablet(s) PO daily 201412/22/2014 Inactive [SAVINGS FOR UNINSURED PATIENTS -- BIN:193422, PCN: ASPROD1, Group: [facility], ID # [id number], Process claim through [employer], for questions: . THIS IS NOT INSURANCE.] hydrocodone 10 mg-acetaminophen 325 mg tablet RxNorm: 548957 Tablet(s) PO TAKE ONE TABLET BY MOUTH EVERY 4 HOURS NEEDED FOR PAIN 201401/23/2015 Inactive (Appended: Controlled substance eRx refill - RxReferenceNumber: [id number]) Flonase 50 mcg/actuation nasal spray,suspension RxNorm: 667592 1 May NASAL each nare daily 11/04/2014 11/03/2014 Inactive Keflex 500 mg capsule RxNorm: 823383 1 Capsule(s) PO QID 201411/03/2014 Inactive take probiotic while on ABT Keflex 500 mg capsule RxNorm: 013758 1 Capsule(s) PO QID 201411/10/2014 Inactive take probiotic while on ABT [SAVINGS FOR UNINSURED PATIENTS -- BIN:491026, PCN: ASPROD1, Group: [facility], ID# [id number], Process claim through [employer], for questions: . THIS IS NOT INSURANCE.] Flonase 50 mcg/actuation nasal spray,suspension RxNorm: 6145607 1 May NASAL each nare daily 11/04/2014 01/02/2015 Inactive [SAVINGS FOR UNINSURED PATIENTS -- BIN:378364, PCN: ASPROD1, Group: [facility], ID# [id number], Process claim through [employer], for questions: . THIS IS NOT INSURANCE.] Benicar 40 mg tablet RxNorm: 829290 1 Tablet(s) PO daily 201411/05/2014 Inactive [SAVINGS FOR UNINSURED PATIENTS -- BIN:716397, PCN: ASPROD1, Group: [facility], ID # [id number], Process claim through [employer], for questions: . THIS IS NOT INSURANCE.] Benicar 40 mg tablet RxNorm: 520074 TAKE ONE TABLET BY MOUTH DAILY 10/28/2014 01/25/2015 Inactive hyoscyamine ER 0.375 mg tablet,extended release,12 hr RxNorm: 0373369 1 Tablet(s) PO BID 10/08/2014 12/29/2015 Inactive [SAVINGS FOR UNINSURED PATIENTS -- BIN:302526 , PCN: ASPROD1, Group: [facility], ID# [id number], Process claim through [employer], for questions: . THIS IS NOT INSURANCE.] Macrodantin 50 mg capsule RxNorm: 943043 1 Capsule(s) PO daily 10/08/2014 11/06/2015 Inactive [SAVINGS FOR UNINSURED PATIENTS -- BIN:745415, PCN: ASPROD1, Group: [facility], ID# [id number], Process claim through [employer], for questions: [phone]. THIS IS NOT INSURANCE.] Benicar 40 mg tablet RxNorm: 160044 1 Tablet(s) PO daily 201409/29/2014 Inactive Benicar 40 mg tablet RxNorm: 885219 1 Tablet(s) PO daily 201410/27/2014 Inactive [SAVINGS FOR UNINSURED PATIENTS -- BIN:015124, PCN: ASPROD1, Group: [facility], ID # [id number], Process claim through [employer], for questions: . THIS IS NOT INSURANCE.] Cipro 500 mg tablet RxNorm: 518802 1 Tablet(s) PO BID 201410/06/2014 Inactive [SAVINGS FOR UNINSURED PATIENTS -- BIN:679304, PCN: ASPROD1, Group: [facility], ID # [id number], Process claim through [employer], for questions: . THIS IS NOT INSURANCE.] Flagyl 500 mg tablet RxNorm: 290394 1 Tablet(s) PO TID 201410/06/2014 Inactive [SAVINGS FOR UNINSURED PATIENTS -- BIN:417670, PCN: ASPROD1, Group: [facility], ID # [id number], Process claim through [employer], for questions: . THIS IS NOT INSURANCE.] estradiol 0.5 mg tablet RxNorm: 441761 1/2 Tablet(s) PO BID 02/201512/22/2014 Inactive [SAVINGS FOR UNINSURED PATIENTS -- BIN:003390, PCN: ASPROD1, Group: [facility] , ID# [id number], Process claim through [employer], for questions: . THIS IS NOT INSURANCE.] Bystolic 10 mg tablet RxNorm: 814075 1 Tablet(s) PO BID 201410/07/2014 Inactive [SAVINGS FOR UNINSURED PATIENTS -- BIN:587474, PCN: ASPROD1, Group: [facility], ID # [id number], Process claim through [employer], for questions: . THIS IS NOT INSURANCE.] hydrochlorothiazide 25 mg tablet RxNorm: 605979 TAKE ONE TABLET BY MOUTH EVERY DAY 08/19/2014 12/22/2014 Inactive hydrochlorothiazide 25 mg tablet RxNorm: 914191 1 Tablet(s) PO daily 08/19/2014 11/26/2014 Inactive [SAVINGS FOR UNINSURED PATIENTS -- BIN:928582, PCN: ASPROD1, Group: [facility], ID# [id number], Process claim through [employer], for questions: [phone]. THIS IS NOT INSURANCE.] hydrocodone 10 mg-acetaminophen 325 mg tablet RxNorm: 362664 Tablet(s) PO TAKE ONE TABLET BY MOUTH EVERY 4 HOURS NEEDED FOR PAIN 201311/05/2014 Inactive (Appended: Controlled substance eRx refill - RxReferenceNumber: [id number]) Requip 0.5 mg tablet RxNorm: 670770 TAKE ONE TABLET BY MOUTH EVERY DAY 07/03/2014 11/29/2014 Inactive hydrocodone 10 mg-acetaminophen 325 mg tablet RxNorm: 747664 Tablet(s) PO TAKE ONE TABLET BY MOUTH EVERY 4 HOURS NEEDED FOR PAIN 201307/25/2014 Inactive (Appended: Controlled substance eRx refill - RxReferenceNumber: [id number]) Mobic 15 mg tablet RxNorm: 079801 TAKE ONE TABLET BY MOUTH EVERY DAY 06/11/2014 03/07/2015 Inactive Klor-Con 10 mEq tablet,extended release RxNorm: 733869 TAKE 4 TABLETS ONCE DAILY 03/11/2014 03/23/2015 Inactive hydrocodone 10 mg-acetaminophen 325 mg tablet RxNorm: 382829 Tablet(s) PO TAKE ONE TABLET BY MOUTH EVERY 4 HOURS NEEDED FOR PAIN 201306/12/2014 Inactive (Appended: Controlled substance eRx refill - RxReferenceNumber: [id number]) hydrocodone 10 mg-acetaminophen 325 mg tablet RxNorm: 3819983 1 Tablet(s) PO Q4 PRN 02/05/2014 05/05/2014 Inactive Zithromax Z-Rangel 250 mg tablet RxNorm: 129869 Tablet(s) PO UD No Stop Date Active Flagyl 500 mg tablet RxNorm: 396534 1 Tablet(s) PO TID 201301/16/2014 Inactive Cipro 500 mg tablet RxNorm: 449362 1 Tablet(s) PO BID 201301/16/2014 Inactive Cipro 500 mg tablet RxNorm: 517369 1 Tablet(s) PO BID 201301/06/2014 Inactive Requip 0.5 mg tablet RxNorm: 925960 Tablet(s) PO TAKE ONE TABLET BY MOUTH EVERY DAY 12/25/2013 07/02/2014 Inactive zolpidem 5 mg tablet RxNorm: 058794 Tablet(s) PO TAKE ONE TABLET BY MOUTH AT BEDTIME NEEDED 11/26/2013 No Stop Date Active (Appended: Controlled substance eRx refill - RxReferenceNumber: [id number]) zolpidem 5 mg tablet RxNorm: 640108 1 Tablet(s) PO HS PRN 11/2611/26/2013 Inactive Klor-Con 10 mEq tablet,extended release RxNorm: 307502 Tablet(s) PO TAKE 4 TABLETS ONCE DAILY 11/05/2013 03/10/2014 Inactive Nasonex 50 mcg/actuation May RxNorm: 184878 2 May NASAL daily 2 sprays each nare once daily 10/30/2013 No Stop Date Active Requip 0.5 mg tablet RxNorm: 493565 1 Tablet(s) PO daily 201312/24/2013 Inactive Mobic 15 mg tablet RxNorm: 226619 1 Tablet(s) PO daily 201302/26/2014 Inactive Voltaren 1 % topical gel RxNorm: 986580 1 Application TOP QID 10/30/2013 11/23/2014 Inactive ketorolac 60 mg/2 mL intramuscular solution RxNorm: 988856 2 Milliliter(s) IM 10/30/2013 10/30/2013 Inactive nystatin 100,000 unit/gram topical powder RxNorm: 048497 1 Application TOP BID 10/30/2013 11/12/2013 Inactive Flagyl 500 mg tablet RxNorm: 463578 1 Tablet(s) PO TID 201311/08/2013 Inactive promethazine 25 mg/mL injection solution RxNorm: 688228 1 Milliliter(s) Inj 10/30/2013 10/30/2013 Inactive Diflucan 150 mg tablet RxNorm: 253855 1 Tablet(s) PO daily 10/10/2013 Inactive Diflucan 150 mg tablet RxNorm: 782394 1 Tablet(s) PO daily 10/03/2013 Inactive metformin 500 mg tablet RxNorm: 149250 1/2 Tablet(s) PO QHS 03/201410/30/2013 Inactive nystatin 100,000 unit/gram topical powder RxNorm: 616034 1 Application TOP BID 09/25/2013 10/08/2013 Inactive Bystolic 5 mg tablet RxNorm: 064837 Tablet(s) PO 09/24/2013 09/18/2014 Inactive 2 q am (10mg)1 q piotr (5mg ) Zithromax Z-Rangel 250 mg tablet RxNorm: 894601 Tablet(s) PO UD No Stop Date Active Flexeril 5 mg tablet RxNorm: 682875 1 Tablet(s) PO Q8 PRN TAKE ONE TABLET BY MOUTH EVERY 8 HOURS NEEDED 09/10/2013 No Stop Date Active hydrocodone 10 mg-acetaminophen 325 mg tablet RxNorm: 833375 1 Tablet(s) PO Q4 PRN 09/10/2013 02/05/2014 Inactive Macrobid 100 mg capsule RxNorm: 928855 1 Capsule(s) PO BID 09/19/2013 Inactive zolpidem 5 mg tablet RxNorm: 728071 1 Tablet(s) PO HS PRN 08/2411/21/2013 Inactive simvastatin 20 mg tablet RxNorm: 120512 1 Tablet(s) PO QHS TAKE ONE TABLET BY MOUTH AT BEDTIME 08/24/2013 08/18/2014 Inactive Requip 0.5 mg tablet RxNorm: 394053 1/2 Tablet(s) PO daily 1/2 tab PO qhs x 1 week , then increase to full tablet PO qhs 08/23/2013 08/22/2013 Inactive iron 325 mg (65 mg iron) tablet RxNorm: 070765 1 Tablet(s) PO Mon Wed Frid take with orange juice 08/23/2013 01/19/2014 Inactive iron 325 mg (65 mg iron) tablet RxNorm: 426043 1 Tablet(s) PO Mon Wed Frid take with orange juice 08/23/2013 08/22/2013 Inactive Requip 0.5 mg tablet RxNorm: 470031 1/2 Tablet(s) PO daily 1/2 tab PO qhs x 1 week , then increase to full tablet PO qhs 08/23/2013 10/21/2013 Inactive hydrochlorothiazide 25 mg tablet RxNorm: 403936 1 Tablet(s) PO daily 08/02/2013 04/28/2014 Inactive Kenalog 40 mg/mL Susp for Injection RxNorm: 9853266 2 Milliliter(s) Inj 07/06/2013 07/06/2013 Inactive Zithromax Z-Rangel 250 mg tablet RxNorm: 017952 Tablet(s) PO UD No Stop Date Active zolpidem 5 mg tablet RxNorm: 065154 1 Tablet(s) PO HS PRN 05/3108/23/2013 Inactive simvastatin 20 mg tablet RxNorm: 262953 Tablet(s) PO TAKE ONE TABLET BY MOUTH AT BEDTIME 05/17/2013 08/23/2013 Inactive zolpidem 5 mg tablet RxNorm: 505915 1 Tablet(s) PO HS PRN 05/1705/30/2013 Inactive hydrocodone 10 mg-acetaminophen 325 mg tablet RxNorm: 3939689 1 Tablet(s) PO Q4 PRN 05/17/2013 08/14/2013 Inactive zolpidem 5 mg tablet RxNorm: 516535 1 Tablet(s) PO HS PRN 04/0405/03/2013 Inactive hydrocodone 10 mg-acetaminophen 325 mg tablet RxNorm: 7105364 1 Tablet(s) PO Q4 PRN 04/04/2013 05/16/2013 Inactive Voltaren 1 % topical gel RxNorm: 022510 1 Application TOP QID 04/04/2013 10/29/2013 Inactive gabapentin 100 mg capsule RxNorm: 388343 Capsule(s) PO TAKE ONE CAPSULE BY MOUTH TWICE A DAY 03/05/2013 07/21/2014 Inactive zolpidem 5 mg tablet RxNorm: 128112 1 Tablet(s) PO HS PRN 02/0804/03/2013 Inactive Flexeril 5 mg tablet RxNorm: 572559 1 Tablet(s) PO Q8 PRN TAKE ONE TABLET BY MOUTH EVERY 8 HOURS NEEDED 02/07/2013 09/10/2013 Inactive hydrocodone 10 mg-acetaminophen 325 mg tablet RxNorm: 8539489 1 Tablet(s) PO Q4 PRN 02/07/2013 04/03/2013 Inactive Celebrex 200 mg capsule RxNorm: 388476 1 Capsule(s) PO BID TAKE ONE CAPSULE BY MOUTH TWICE A DAY 02/07/2013 10/30/2013 Inactive zolpidem 5 mg tablet RxNorm: 943506 1 Tablet(s) PO HS PRN 01/1102/07/2013 Inactive Flexeril 5 mg tablet RxNorm: 383078 Tablet(s) PO TAKE ONE TABLET BY MOUTH EVERY 8 HOURS NEEDED 01/04/2013 02/06/2013 Inactive hydrocodone 10 mg-acetaminophen 325 mg tablet RxNorm: 4797430 1 Tablet(s) PO Q4 PRN 01/04/2013 02/06/2013 Inactive Flexeril 5 mg tablet RxNorm: 437845 1 Tablet(s) PO Q8 PRN 01/04 No Stop Date Active Nasonex 50 mcg/actuation May RxNorm: 312877 2 May NASAL 2 sprays each nare once daily 01/04/2013 10/29/2013 Inactive Klor-Con 10 mEq tablet,extended release RxNorm: 636409 Tablet(s) PO TAKE 4 TABLETS ONCE DAILY 12/18/2012 11/04/2013 Inactive simvastatin 20 mg tablet RxNorm: 357615 Tablet(s) PO TAKE ONE TABLET BY MOUTH AT BEDTIME 12/06/2012 05/16/2013 Inactive gabapentin 100 mg capsule RxNorm: 595553 1 Capsule(s) PO BID 03/03/2013 Inactive gabapentin 100 mg capsule RxNorm: 778001 1 Capsule(s) PO BID 12/03/2012 Inactive amoxicillin 500 mg tablet RxNorm: 262982 1 Tablet(s) PO TID 12/03/2012 Inactive amoxicillin 500 mg tablet RxNorm: 551901 1 Tablet(s) PO TID 12/08/2012 Inactive zolpidem 5 mg tablet RxNorm: 643193 1 Tablet(s) PO HS PRN 11/0801/06/2013 Inactive hydrocodone 10 mg-acetaminophen 325 mg tablet RxNorm: 7892753 1 Tablet(s) PO Q4 PRN 11/08/2012 01/03/2013 Inactive Celebrex 200 mg capsule RxNorm: 076546 Capsule(s) PO TAKE ONE CAPSULE BY MOUTH TWICE A DAY 11/08/2012 02/06/2013 Inactive gabapentin 100 mg capsule RxNorm: 876870 1 Capsule(s) PO BID 11/06/2012 Inactive gabapentin 100 mg capsule RxNorm: 968672 1 Capsule(s) PO BID 12/03/2012 Inactive Bystolic 5 mg tablet RxNorm: 090073 Tablet(s) PO 07/19/2012 07/18/2012 Inactive 2 q am (10mg)1 q piotr (5mg ) Bystolic 5 mg tablet RxNorm: 084796 Tablet(s) PO 07/19/2012 07/13/2013 Inactive 2 q am (10mg)1 q piotr (5mg ) hydrocodone-acetaminophen 10 mg-325 mg tablet RxNorm: 2495277 1 Tablet(s) PO Q4 PRN 07/12/2012 10/09/2012 Inactive hydrochlorothiazide 25 mg tablet RxNorm: 498770 1 Tablet(s) PO daily 07/12/2012 07/06/2013 Inactive Bystolic 10 mg tablet RxNorm: 861852 1 Tablet(s) PO daily 201107/18/2012 Inactive Lasix 20 mg tablet RxNorm: 309139 1 Tablet(s) PO PRN Take an extra potassium when taking lasix 07/12/2012 05/19/2016 Inactive Influenza Virus Vaccine 0.5 mL RxNorm: IM 06/28/2012 06/28/2012 Inactive Pneumovax 23 25 mcg/0.5 mL Injection RxNorm: 635988 Milliliter(s) Inj 06/28/2012 06/28/2012 Inactive Lasix 20 mg tablet RxNorm: 131370 1 Tablet(s) PO PRN Take an extra potassium when taking lasix 06/28/2012 07/11/2012 Inactive Flexeril 5 mg tablet RxNorm: 301951 1 Tablet(s) PO Q8 PRN 06/2009/17/2012 Inactive Flexeril 5 mg tablet RxNorm: 263262 1 Tablet(s) PO Q8 PRN 06/1506/19/2012 Inactive hydrochlorothiazide 25 mg tablet RxNorm: 432402 1 Tablet(s) PO daily 06/08/2012 07/07/2012 Inactive hydrocodone-acetaminophen 5 mg-500 mg capsule RxNorm: 595993 1 Capsule(s) PO Q6 PRN 06/08/2012 06/27/2012 Inactive hydrochlorothiazide 25 mg tablet RxNorm: 849950 1 Tablet(s) PO daily 06/08/2012 06/07/2012 Inactive Bystolic 10 mg tablet RxNorm: 706643 1 Tablet(s) PO daily 201107/11/2012 Inactive Lasix 20 mg tablet RxNorm: 796832 1 Tablet(s) PO PRN Take 1 tab daily x 5 days then daily PRN swelling. Take an extra potassium when taking potassium 05/10/2012 06/27/2012 Inactive hydrocodone-acetaminophen 5 mg-500 mg capsule RxNorm: 138043 1 Capsule(s) PO Q6 PRN 05/09/2012 06/07/2012 Inactive Flexeril 5 mg tablet RxNorm: 628903 1 Tablet(s) PO Q8 PRN 04/0706/14/2012 Inactive hydrocodone-acetaminophen 5 mg-500 mg capsule RxNorm: 492632 1 Capsule(s) PO Q6 PRN 03/30/2012 05/08/2012 Inactive Voltaren 1 % Topical Gel RxNorm: 580968 1 Application TOP QID 03/23/2012 09/18/2012 Inactive Voltaren 1 % Topical Gel RxNorm: 025394 1 Application TOP QID 03/23/2012 03/22/2012 Inactive Celebrex 200 mg capsule RxNorm: 745566 1 Capsule(s) PO BID 12/201111/07/2012 Inactive hydrocodone-acetaminophen 5 mg-500 mg Cap RxNorm: 338919 1 Capsule(s) PO Q6 PRN 02/15/2012 03/29/2012 Inactive hydrochlorothiazide 25 mg Tab RxNorm: 792692 1 Tablet(s) PO daily 02/02/2012 05/24/2012 Inactive Flagyl 500 mg Tab RxNorm: 245108 1 Tablet(s) PO TID 201102/01/2012 Inactive Flagyl 500 mg Tab RxNorm: 643415 1 Tablet(s) PO TID 201105/24/2012 Inactive hydrochlorothiazide 25 mg Tab RxNorm: 306520 1 Tablet(s) PO daily 02/02/2012 02/01/2012 Inactive Diflucan 150 mg Tab RxNorm: 059309 1 Tablet(s) PO daily 201105/24/2012 Inactive simvastatin 20 mg tablet RxNorm: 433127 1 Tablet(s) PO QHS 12/201112/05/2012 Inactive hydrocodone-acetaminophen 5 mg-500 mg Cap RxNorm: 058248 1 Capsule(s) PO Q6 PRN 01/20/2012 02/15/2012 Inactive Flagyl 500 mg Tab RxNorm: 480879 1 Tablet(s) PO TID 201101/04/2012 Inactive Macrobid 100 mg capsule RxNorm: 467884 1 Capsule(s) PO BID 07/201201/07/2012 Inactive lactobacillus acidophilus Chewable Tab RxNorm: 1 Tablet(s) PO BID 12/29/2011 05/24/2012 Inactive hydrocodone-acetaminophen 5 mg-500 mg Cap RxNorm: 650543 1 Capsule(s) PO Q6 PRN 12/27/2011 01/19/2012 Inactive hydrocodone-acetaminophen 5 mg-500 mg Cap RxNorm: 889435 1 Capsule(s) PO Q6 PRN 12/07/2011 12/26/2011 Inactive hydrochlorothiazide 50 mg Tab RxNorm: 449948 1 Tablet(s) PO daily 11/11/2011 05/24/2012 Inactive hydrocodone-acetaminophen 5 mg-500 mg Cap RxNorm: 176464 1 Capsule(s) PO Q6 PRN 10/27/2011 12/06/2011 Inactive Klor-Con 10 mEq tablet,extended release RxNorm: 849945 4 Tablet(s) PO daily 09/28/2011 06/23/2012 Inactive ketorolac 60 mg/2 mL IM RxNorm: 449023 2 Milliliter(s) IM 08/3108/31/2011 Inactive Klor-Con 10 10 mEq Tab RxNorm: 877886 4 Tablet(s) PO daily 04/201109/27/2011 Inactive Kenalog 40 mg/mL Susp for Injection RxNorm: 7575564 1.5 Milliliter(s) Inj 08/18/2011 08/18/2011 Inactive prednisone 10 mg Tab RxNorm: 739292 Tablet(s) PO 08/17/2011 08/22/2011 Inactive 6-5-4 -3-2-1 Celebrex 200 mg Cap RxNorm: 931899 1 Capsule(s) PO BID 201002/20/2012 Inactive simvastatin 20 mg Tab RxNorm: 116946 1 Tablet(s) PO 07/22/2011 01/20/2012 Inactive Rocephin 500 mg Solution for Injection RxNorm: 729553 1 Milliliter(s) Inj as doctor directed 05/21/2011 05/21/2011 Inactive Advair Diskus 250 mcg-50 mcg/dose powder for inhalation RxNorm: 3818869 2 Puff(s) INH BID No Start Date Active Vitamin D-3 Oral RxNorm: Oral No Start Date Active Diflucan 150 mg tablet RxNorm: 722804 1 Tablet(s) PO every other day No Start Date 01/06/2014 Inactive Klor-Con 10 10 mEq Tab RxNorm: 276682 1 Tablet(s) PO daily No Start Date 08/25/2011 Inactive nystatin-triamcinolone 100,000 unit/g-0.1 % Topical Cream RxNorm: 7684144 1 Application TOP TID No Start Date 2012 Inactive Bystolic 10 mg tablet RxNorm: 591243 1 Tablet(s) PO daily No Start Date 2012 Inactive Nasonex 50 mcg/actuation May RxNorm: 151170 2 May NASAL 2 sprays each nare once daily No Start Date 01/03/2013 Inactive naproxen 500 mg Tab RxNorm: 083716 1 Tablet(s) PO BID No Start Date 12/28/2011 Inactive mupirocin 2 % topical ointment RxNorm: 421599 1 Application TOP BID No Start Date 09/15/2017 Inactive Lasix 20 mg tablet RxNorm: 461400 1 Tablet(s) PO PRN Take 1 tab daily x 5 days then daily PRN swelling. Take an extra potassium when taking potassium No Start Date 05/09/2012 Inactive Flexeril 5 mg tablet RxNorm: 373946 1 Tablet(s) PO Q8 PRN No Start Date 04/06/2012 Inactive hydrocodone-acetaminophen 5 mg-500 mg Cap RxNorm: 560770 1 Capsule(s) PO Q6 PRN No Start Date 10/26/2011 Inactive Phenergan-Codeine 6.25 mg-10 mg/5 mL syrup RxNorm: 542834 5 Milliliter(s) PO Q6 as needed cough No Start Date 07/19/2017 Inactive diclofenac sodium 75 mg tablet,delayed release RxNorm: 196740 2 Tablet(s) PO BID No Start Date 03/24/2016 Inactive Zithromax Z-Rangel 250 mg tablet RxNorm: 370264 Tablet(s) PO UD No Start Date 03/22/2012 Inactive orphenadrine citrate ER 100 mg Tab RxNorm: 370182 1 Tablet(s) PO BID No Start Date 05/19/2016 Inactive scopolamine 1.5 mg transdermal patch (1 mg over 3 days) RxNorm: 682742 2 Patch TD q 3 days No Start Date 07/08/2016 Inactive Fish Oil 1,000 mg Cap RxNorm: 3 Capsule(s) PO daily No Start Date 04/29/2013 Inactive Macrodantin 50 mg Cap RxNorm: 453972 1 Capsule(s) PO daily No Start Date 10/07/2014 Inactive hydrochlorothiazide 50 mg Tab RxNorm: 626933 1 Tablet(s) PO daily No Start Date 11/10/2011 Inactive Medication Administered Medication Codes Instructions Start Date Status ceftriaxone 500 mg solution for injection RxNorm: 0348154 1Gram 09/14/2017 No longer Active ceftriaxone 500 mg solution for injection RxNorm: 6271799 08/09/2017 No longer Active ceftriaxone 500 mg solution for injection RxNorm: 6330177 1Milliliter 08/08/2017 No longer Active Kenalog 40 mg/mL suspension for injection RxNorm: 6747827 Milliliter 09/27/2016 No longer Active promethazine 25 mg/mL injection solution RxNorm: 513334 1Milliliter 10/30/2013 No longer Active ketorolac 60 mg/2 mL intramuscular solution RxNorm: 683129 2Milliliter 10/30/2013 No longer Active Kenalog 40 mg/mL Susp for Injection RxNorm: 4530814 2Milliliter 07/06/2013 No longer Active Influenza Virus Vaccine 0.5 mL RxNorm: 06/28/2012 No longer Active Pneumovax 23 25 mcg/0.5 mL Injection RxNorm: 540313 Milliliter 06/28/2012 No longer Active ketorolac 60 mg/2 mL IM RxNorm: 134119 2Milliliter 08/31/2011 No longer Active Kenalog 40 mg/mL Susp for Injection RxNorm: 7531067 1.5Milliliter 08/18/2011 No longer Active Rocephin 500 mg Solution for Injection RxNorm: 844938 1Milliliteras doctor directed 05/21/2011 No longer Active [...] 09/24/2014 Need for tetanus booster ICD-9: V03.7 OT SCREENING MAMMOGRAM ICD-9: V76.12 Diverticulosis ICD-9: 562.10 [...] NO Growth Day 2 06/23/2017 Culture Urine [id number] URINE CULTURE SEE NOTES 06/13/2017 Culture Urine [id number] Continued Results 06/13/2017 Urine Culture Ucult Complete >100,000 col/ml aerobic growth sent to ref lab 06/11/2017 B12 Ffg046 B12 341.00 pg/ml 06/10/2017 Tsh Ord6 hTSH II 0.88 uIU/mL 06/10/2017 Comp Metabolic Nac293 NA 138 mEq/L 06/10/2017 Comp Metabolic Wob275 K 4.4 mEq/L 06/10/2017 Comp Metabolic Tkn992 CL 104 mEq/L 06/10/2017 Comp Metabolic Sba730 CO2 27.0 mEq/L 06/10/2017 Comp Metabolic Xtn888 ANION GAP 11 06/10/2017 Comp Metabolic Fxx729 GLUCOSE 86 mg/dL 06/10/2017 Comp Metabolic Vem412 Creat 1.2 mg/dL 06/10/2017 Comp Metabolic Nkg960 eGFR 49 ml/min/1.73m2 06/10/2017 Comp Metabolic Whb157 BUN 26 mg/dL 06/10/2017 Comp Metabolic Rre278 B/C Ratio 22.2 Ratio 06/10/2017 Comp Metabolic Avs880 CALCIUM 9.4 mg/dL 06/10/2017 Comp Metabolic Urr083 ALK PHOS 48 U/L 06/10/2017 Comp Metabolic Ndk029 AST(SGOT) 28 U/L 06/10/2017 Comp Metabolic Eaf993 ALT(SGPT) 29 U/L 06/10/2017 Comp Metabolic Pfw503 BILI T 0.5 mg/dL 06/10/2017 Comp Metabolic Tlw006 ALBUMIN 4.1 g/dL 06/10/2017 Comp Metabolic Spd960 TPRO 6.3 g/dL 06/10/2017 Comp Metabolic Owt282 GLOB 2.2 g/dL 06/10/2017 Comp Metabolic Whv052 A/G Ratio 1.9 Ratio 06/10/2017 Comp Metabolic Fdg938 Osmo 280 mOsmo 06/10/2017 Cbc With Differential [...] 28.4 % 06/10/2017 Cbc With Differential Ord2 [place]% 10.7 % 06/10/2017 Cbc With Differential Ord2 [...] 1.48 K/ul 06/10/2017 Cbc With Differential Ord2 [place] ABS# 0.6 K/ul 06/10/2017 Cbc With Differential Ord2 Eos ABS# 0.2 K/ul 06/10/2017 Cbc With Differential Ord2 Baso ABS# 0.0 K/ul 06/10/2017 Total T3 Ord42 TT3 0.70 ng/ml 06/10/2017 Comp Metabolic Vly228 NA 139 mEq/L 08/20/2015 Comp Metabolic Qjp175 K 4.4 mEq/L 08/20/2015 Comp Metabolic Ywb274 CL 104 mEq/L 08/20/2015 Comp Metabolic Qzo631 CO2 26.0 mEq/L 08/20/2015 Comp Metabolic Ekm523 ANION GAP 13 08/20/2015 Comp Metabolic Imt443 GLUCOSE 78 mg/dL 08/20/2015 Comp Metabolic Zew115 Creat 0.8 mg/dL 08/20/2015 Comp Metabolic Boa437 eGFR 79 ml/min/1.73m2 08/20/2015 Comp Metabolic Yko157 BUN 21 mg/dL 08/20/2015 Comp Metabolic Eds178 B/C Ratio 27.3 Ratio 08/20/2015 Comp Metabolic Pzt173 CALCIUM 9.5 mg/dL 08/20/2015 Comp Metabolic Acj126 ALK PHOS 64 U/L 08/20/2015 Comp Metabolic Iub644 AST(SGOT) 20 U/L 08/20/2015 Comp Metabolic Xrq550 ALT(SGPT) 16 U/L 08/20/2015 Comp Metabolic Ugy993 BILI T 0.5 mg/dL 08/20/2015 Comp Metabolic Mcw765 ALBUMIN 4.2 g/dL 08/20/2015 Comp Metabolic Cio224 TPRO 7.0 g/dL 08/20/2015 Comp Metabolic Oxp609 GLOB 2.8 g/dL 08/20/2015 Comp Metabolic Nkp891 A/G Ratio 1.5 Ratio 08/20/2015 Comp Metabolic Xtm004 Osmo 279 mOsmo 08/20/2015 Cbc With Differential [...] Metabolic Ord15 CALCIUM 9.2 mg/dL 04/15/2015 %SAT/TIBC 9769364 TIBC 360 UG/DL 08/22/2013 %SAT/TIBC 3198410 % SATURAT 22 % 08/22/2013 %SAT/TIBC 4043847 UIBC 282 MCG/DL 08/22/2013 IRON TEST [id number] IRON TEST 78 UG/DL 08/22/2013 VIT D TOTL 6601758 VIT D TOTL 74 NG/ML 08/22/2013 CANCEL 6168568 CANCEL FOOTNOTE 08/22/2013 A1C HPLC 6683423 A1C HPLC 07154-4 5.8 % 08/21/2013 CHEM 14 1662916 AST 25 U/L 08/20/2013 CHEM 14 9285219 ALT 32 IU/L 08/20/2013 CHEM 14 2916547 BUN 21 MG/DL 08/20/2013 CHEM 14 0323855 ALBUMIN 4.4 GM/DL 08/20/2013 CHEM 14 1973268 CHLORIDE 105 MMOL/L 08/20/2013 CHEM 14 6320879 BILI TOT 0.5 MG/DL 08/20/2013 CHEM 14 3339466 ALK PHOS 50 U/L 08/20/2013 CHEM 14 1489862 SODIUM 139 MMOL/L 08/20/2013 CHEM 14 9538963 CREATININE 0.76 MG/DL 08/20/2013 CHEM 14 0047827 CALCIUM 9.7 MG/DL 08/20/2013 CHEM 14 3205229 POTASSIUM 3.9 MMOL/L 08/20/2013 CHEM 14 6849091 PROT TOT 7.0 GM/DL 08/20/2013 CHEM 14 4576104 GLUCOSE 135 MG/DL 08/20/2013 CHEM 14 8845453 BICARB 27 MMOL/L 08/20/2013 CHEM 14 2811405 ANION GAP 7 MEQ/L 08/20/2013 CBC 8357710 WBC 6.6 10e9/L 08/20/2013 CBC 8249497 RBC 4.28 10e12/L 08/20/2013 CBC 2249544 HGB 14.1 g/dL 08/20/2013 CBC 5660111 HCT DET 42.7 % 08/20/2013 CBC 5317559 MCV 99.8 fL 08/20/2013 CBC 3484476 MCH 32.9 pg 08/20/2013 CBC 7529906 MCHC 33.0 g/dL 08/20/2013 CBC 9541584 PLT 289 10e9/L 08/20/2013 CBC 9206501 MPV 9.8 fL 08/20/2013 CBC 6460545 AZAEL % 70.3 % 08/20/2013 CBC 1009231 LY % 21.2 % 08/20/2013 CBC 7642590 MON % 7.4 % 08/20/2013 CBC 9952567 EOS % 0.9 % 08/20/2013 CBC 2246559 BASO % 0.2 % 08/20/2013 CBC 6353899 RDW 13.5 % 08/20/2013 CBC 8774082 ABS AZAEL 4.64 10e9/L 08/20/2013 CBC 2417230 ABS LYMPH 1.40 10e9/L 08/20/2013 CBC 9657845 ABS MONO 0.49 10e9/L 08/20/2013 CBC 6180549 ABS EOS 0.06 10e9/L 08/20/2013 CBC 9342354 ABS BASO 0.01 10e9/L 08/20/2013 CBC 2844604 RDW-SD 48.4 fL 08/20/2013 GFR CALC 8571341 GFR AA >60 ML/MIN 08/20/2013 GFR CALC 0169967 GFR NON-AA >60 ML/MIN 08/20/2013 TSH 3698904 TSH 0.610 uIU/ML 08/20/2013 MAGNESIUM 8458962 MAGNESIUM 1.7 MEQ/L 08/20/2013 URINALYSIS NONAUTO W/O SCOPE 31657 Specific [place] 1.015 DateTime(Free Text in Aprima) URINALYSIS NONAUTO W/O SCOPE 88878 PH 6.0 DateTime(Free Text in Aprima) URINALYSIS NONAUTO W/O SCOPE 99605 GLUCOSE NEG DateTime( Free Text in Aprima) URINALYSIS NONAUTO W/O SCOPE 41129 Protein NEG DateTime( Free Text in Aprima) URINALYSIS NONAUTO W/O SCOPE 58359 Blood NEG DateTime(Free Text in Aprima) URINALYSIS NONAUTO W/O SCOPE 59063 Bilirubin NEG DateTime(Free Text in Aprima) URINALYSIS NONAUTO W/O SCOPE 28633 Ketones NEG DateTime( Free Text in Aprima) URINALYSIS NONAUTO W/O SCOPE 97624 Urobilinogen NEG DateTime(Free Text in Aprima) URINALYSIS NONAUTO W/O SCOPE 11522 Nitrite POSITIVE DateTime(Free Text in Aprima) URINALYSIS NONAUTO W/O SCOPE 38429 Leukocytes NEG DateTime(Free Text in Apr) Review of Systems System Result Effective Dates [...] sinus congestion 10/26/2012 Cardiovascular No chest pain/pressure 02/ 03/2013 Cardiovascular No dyspnea 10/26/2012 Cardiovascular No [...] upper back muscles Full Exam - General 1995 Psychiatric orientation/consciousness [...] 1994 Ears/Nose/Throat oral cavity/pharynx/larynx Overall: no masses 10/26/2012 [...] pattern type baldness Full Exam - General 1995 Cardiovascular extremities Edema present: pitting 07/12/2012 None [...] 1994 Ears/Nose/Throat oral cavity/pharynx/larynx Overall: no masses 05/24/2012 [...] 1995 Ears/Nose/Throat oral cavity/pharynx/larynx Overall: no masses 05/09/2012 [...] Procedure Codes Date THER/PROPH/DIAG INJ SC/IM CPT-4: 68512 09/14/2017 ROCEPHIN, PER 250 MG CPT-4: J0696 09/14/2017 THER/PROPH/DIAG INJ SC/IM CPT-4: 01673 08/09/2017 ROCEPHIN, PER 250 MG CPT-4: J0696 08/09/2017 ROCEPHIN, PER 250 MG CPT-4: J0696 08/08/2017 URINALYSIS NONAUTO W/O SCOPE CPT-4: 26101 06/21/2017 URINALYSIS NONAUTO W/O SCOPE CPT-4: 09580 06/10/2017 PPPS, SUBSEQ VISIT CPT -4: G0439 12/17/2016 THER/PROPH/DIAG INJ SC/IM CPT-4: 91288 09/27/2016 TRIAMCINOLONE ACET INJ NOS CPT-4: J3301 09/27/2016 ADMIN INFLUENZA VIRUS VAC CPT-4: G0008 06/21/2016 FLU VACC 4 EMMA 3 YRS PLUS IM Formatting Model/CDA Sections, Assigned to/Kiki Redding SNOMED CT: [id number] CPT-4: 89430Hwiionh 06/21/2016 PNEUMOCOCCAL VACC 13 EMMA IM Formatting Model/CDA Sections, Assigned to/Kiki Redding SNOMED CT: [id number] CPT-4: 56161Joptjwz 07/21/2015 IMMUNIZATION ADMIN CPT -4: 55981 07/21/2015 THER/PROPH/DIAG INJ SC/IM CPT-4: 09709 09/05/2014 TENIVAC TD VACCINE NO PRSRV 7/> IM Assigned to CPT-4: 91618Iqfecca 09/05/2014 ADMIN INFLUENZA VIRUS VAC CPT-4: G0008 06/14/2014 FLU VAC NO PRSV 4 EMMA 3 YRS+ Assigned to/Kiki Redding CPT-4: 45473Qjfsevp 06/14/2014 99603 EST. PATIENT, LEVEL IV CPT-4: 00981 01/11/2014 URINALYSIS NONAUTO W/O SCOPE CPT-4: 74276 01/11/2014 KETOROLAC TROMETHAMINE INJ CPT-4: J1885 10/30/2013 PROMETHAZINE HCL INJECTION CPT-4: J2550 10/30/2013 ROUTINE VENIPUNCTURE CPT-4: 98339 08/20/2013 INJ TRIGGER POINT 1/2 MUSCL CPT-4: 09463 07/06/2013 IMMUNIZATION ADMIN CPT -4: 83906 06/28/2012 Influenza Virus Vaccine, Split Virus, >3 Yrs, IM CPT-4: 38802 06/28/2012 Pneumococcal Polysaccharide Vaccine, 23-Valent, Ad CPT-4: 82302 06/28/2012 URINALYSIS NONAUTO W/O SCOPE CPT-4: 47333 12/29/2011 KETOROLAC TROMETHAMINE INJ CPT-4: J1885 08/31/2011 THER/PROPH/DIAG INJ SC/IM CPT-4: 05062 08/31/2011 TRIAMCINOLONE ACET INJ NOS CPT-4: J3301 08/17/2011 THER/PROPH/DIAG INJ SC/IM CPT-4: 44322 08/17/2011 URINALYSIS NONAUTO W/O SCOPE CPT-4: 98248 08/17/2011 ROCEPHIN, PER 250 MG CPT-4: J0696 05/21/2011 THER/PROPH/DIAG INJ SC/IM CPT-4: 03782 05/21/2011 Vital Signs Date Vital 09/14/2017 Blood Pressure 1: 126/74 Code : 8480-6 Heart Rate 1: 95 bpm Height: SpO2: 95% Weight: 08/09/2017 Height: Weight: 08/08/2017 Blood Pressure 1: 126/86 Code : 8480-6 BMI: 28.3 Code : 13273-8 Heart Rate 1 : 83 bpm Height: 5'5" SpO2: 98% Weight: 170 lbs 06/10/2017 Blood Pressure 1: 110/72 Code : 8480-6 BMI: 29.1 Code : 48269-3 Heart Rate 1 : 84 bpm Height: 5'5" SpO2: 97% Weight: 175 lbs 03/04/2017 Blood Pressure 1: 102/66 Code : 8480-6 BMI: 28.4 Code : 54182-5 Heart Rate 1 : 91 bpm Height: 5'5" SpO2: 93% Weight: 170 lbs 8 oz 12/17/2016 Blood Pressure 1: 138/76 Code : 8480-6 BMI: 28.8 Code : 98679-2 Heart Rate 1 : 86 bpm Height: [...] Code : 8480-6 BMI: 28.3 Code : 98048-5 Heart Rate 1 : 83 bpm Height: 5'5" SpO2: 94% Weight: 170 lbs 06/21/2016 Blood Pressure 1: 120/80 Code : 8480-6 BMI: 29.3 Code : 29087-5 Heart Rate 1 : 76 bpm Height: 5'6" SpO2: 90% Weight: 179 lbs 05/20/2016 Blood Pressure 1: 130/70 Code : 8480-6 BMI: 29.7 Code : 70939-3 Heart Rate 1 : 79 bpm Height: 5'6" SpO2: 96% Weight: 181 lbs 01/26/2016 Blood Pressure 1: 138/80 Code : 8480-6 BMI: 29.7 Code : 40088-7 Heart Rate 1 : 75 bpm Height: 5'6" SpO2: 95% Weight: 181 lbs 11/12/2015 Blood Pressure 1: 132/62 Code : 8480-6 BMI: 29.2 Code : 09933-1 Heart Rate 1 : 73 bpm Height: 5'6" SpO2: 95% Weight: 178 lbs 09/29/2015 Blood Pressure 1: 140/76 Code : 8480-6 BMI: 29.3 Code : 71294-6 Heart Rate 1 : 69 bpm Height: 5'6" SpO2: 97% Weight: 179 lbs 08/22/2015 Blood Pressure 1: 158/78 Code : 8480-6 Blood Pressure 1: 142/88 Code: 8480-6 BMI: 30.0 Code: 78327-6 Heart Rate 1: 98 bpm Height: 5'6" SpO2: 99% Temperature : 83.9 (C) / 183.0 (F) Weight: 183 lbs 07/21/2015 Blood Pressure 1: 130/90 Code : 8480-6 Blood Pressure 1: 130/88 Code: 8480-6 BMI: 29.8 Code: 42830-0 Heart Rate 1: 64 bpm Height: 5'6" SpO2: 96% Weight: 182 lbs 05/20/2015 Blood Pressure 1: 130/68 Code : 8480-6 Heart Rate 1: 93 bpm Height: 5'6" SpO2: 96% Weight: 01/24/2015 Blood Pressure 1: 128/74 Code : 8480-6 BMI: 29.2 Code : 51208-9 Heart Rate 1 : 88 bpm Height: 5'6" Weight: 178 lbs 12/23/2014 Blood Pressure 1: 102/62 Code : 8480-6 Heart Rate 1: 88 bpm Height: SpO2: 98% Weight: 10/08/2014 Blood Pressure 1: 118/78 Code : 8480-6 BMI: 30.0 Code : 66679-9 Heart Rate 1 : 78 bpm Height: [...] Code : 8480-6 BMI: 30.2 Code : 24966-4 Heart Rate 1 : 84 bpm Height: 5'6" Weight: 184 lbs 08/20/2013 Blood Pressure 1: 132/70 Code : 8480-6 Weight: 07/06/2013 Blood Pressure 1: 126/80 Code : 8480-6 Heart Rate 1: 68 bpm Weight: 04/30/2013 Blood Pressure 1: 122/70 Code : 8480-6 BMI: 30.4 Code : 35872-4 Heart Rate 1 : 64 bpm Height: [...] Code : 8480-6 BMI: 30.5 Code : 84711-6 Heart Rate 1 : 97 bpm Height: 5'5" Weight: 183 lbs 05/21/2011 Blood Pressure 1: 128/78 Code : 8480-6 BMI: 28.4 Code : 24266-1 Heart Rate 1 : 76 bpm Height: [...] well woman exam (65+ years) Lifestyle satisfactory work/long term experience 06/21/2016 None well woman exam (65+ [...] 01/24/2015 None anxiety Alleviating Factors medication 01/24/2015 [facility] Follow Up _ musculoskeletal disorder 12/23/2014 None [...] data Encounters Encounter Performer Location Codes Date [id number] EST. PATIENT, LEVEL III Diagnosis: Cellulitis of left finger[ICD10: L03.012] Annemarie Crisostomo MD, [facility] CPT-4: 85695 09/14/2017 ([id number]) 02227 EST. PATIENT, LEVEL III Diagnosis: Cellulitis of left finger[ICD10: L03.012] Chela Crisostomo MD, [facility] CPT-4: 89330 08/08/2017 ([id number]) 47935 EST. PATIENT, LEVEL IV Diagnosis: Essential (primary) hypertension[ICD10: I10] Diagnosis: Dysuria[ICD10: R30.0] Diagnosis: Rash and other nonspecific skin eruption[ICD10: R21] Diagnosis: Other insomnia[ICD10: G47.09] Diagnosis: Other fatigue[ICD10: R53.83] Diagnosis: Vitamin B12 deficiency anemia, unspecified[ICD10: D51.9] Chela Crisostomo MD , [facility] CPT-4: 99837 06/10/2017 ([id number]) 67944 EST. PATIENT, LEVEL III Diagnosis: Rash and other nonspecific skin eruption[ICD10: R21] Chela Crisostomo MD, [facility] CPT-4: 93235 03/04/2017 ([id number]) 59533 EST. PATIENT, LEVEL III Diagnosis: Cough[ICD10: R05] Diagnosis: Pneumonia, unspecified organism[ICD10: J18.9] Diagnosis: Pain in left shoulder[ICD10: M25.512] Chela Crisostomo MD, [facility] CPT-4: 53646 11/25/2016 ([id number]) 75084 EST. PATIENT, LEVEL III Diagnosis: Pain in left shoulder[ICD10: M25.512] Diagnosis: Pneumonia, unspecified organism[ICD10: J18.9] Chela Crisostomo MD, [facility] CPT-4: 96161 11/18/2016 ([id number]) 47156 EST. PATIENT, LEVEL IV Diagnosis: Cough[ICD10: R05] Diagnosis: Pneumonia, unspecified organism[ICD10: J18.9] Diagnosis: Hypoxemia[ICD10: R09.02] Chela Crisostomo MD, [facility] CPT-4: 93423 11/11/2016 ([id number]) 85027 EST. PATIENT, LEVEL IV Diagnosis: Encounter for gynecological examination (general) (routine) without abnormal findings[ICD10: Z01.419] Chela Crisostomo MD, [facility] CPT-4: 26241 06/21/2016 ([id number]) 93713 EST. PATIENT, LEVEL IV Diagnosis: Pressure ulcer of right buttock, stage 2[ICD10: L89.312] Diagnosis: Essential (primary) hypertension[ICD10: I10] Diagnosis: Myalgia[ICD10: M79.1] Chela Crisostomo MD, [facility] CPT-4: 05188 05/20/2016 ([id number]) 55648 EST. PATIENT, LEVEL III Diagnosis: Essential (primary) hypertension[ICD10: I10] Diagnosis: Unilateral primary osteoarthritis, right knee[ICD10: M17.11] Chela Crisostomo MD, [facility] CPT-4: 40276 01/26/2016 71868 EST. PATIENT, LEVEL IV Diagnosis: Cutaneous abscess of left upper limb[ICD10: L02.414] Annemarie Crisostomo MD, [facility] CPT-4: 52907 11/12/2015 44981 EST. PATIENT, LEVEL IV Diagnosis: Essential (primary) hypertension[ICD10: I10] Diagnosis: Localized edema[ICD10: R60.0] Chela Crisostomo MD, [facility] CPT-4: 44145 09/29/2015 ([id number]) 96181 EST. PATIENT, LEVEL III Diagnosis: Essential (primary) hypertension[ICD10: I10] Diagnosis: Localized edema[ICD10: R60.0] Chela Crisostomo MD [facility] CPT-4: 08003 08/22/2015 ([id number]) 49253 EST. PATIENT, LEVEL IV Diagnosis: Essential (primary) hypertension[ICD10: I10] Diagnosis: Localized edema[ICD10: R60.0] Diagnosis: Pain in leg, unspecified[ICD10: M79.606] Diagnosis: Primary generalized (osteo)arthritis[ICD10: M15.0] Diagnosis: VACCIN STREP PNEUMONIAE[ICD10: Z23] Chela Crisostomo MD, [facility] CPT-4: 78183 07/21/2015 ([id number]) 00141 EST. PATIENT, LEVEL III Diagnosis: Edema[ICD9: 782.3] Diagnosis: Presence of surgical incision[ICD9: V49.89] Paty Crisostomo MD [facility] CPT-4: 80298 05/20/2015 ([id number]) 99118 EST. PATIENT, LEVEL III Diagnosis: ESSENTIAL HYPERTENSION[ICD9: 401.9] Diagnosis: Leg pain[ICD9: 729.5] Paty Crisostomo MD [facility] CPT-4: 55341 01/24/2015 ([id number]) 50255 EST. PATIENT, LEVEL III Diagnosis: ESSENTIAL HYPERTENSION[ICD9: 401.9] Paty Crisostomo MD [facility] CPT-4: 04774 12/23/2014 ([id number]) 17545 EST. PATIENT, LEVEL III Diagnosis: ESSENTIAL HYPERTENSION[ICD9: 401.9] Diagnosis: Irritable bowel[ICD9: 564.1] Paty Crisostomo MD [facility] CPT- 4: 55969 10/08/2014 ([id number]) 30984 EST. PATIENT, LEVEL V Diagnosis: ESSENTIAL HYPERTENSION[ICD9: 401.9] Diagnosis: Varicose veins[ICD9: 454.9] Diagnosis: Leg pain[ICD9: 729.5] Diagnosis: Leg cramps[ICD9: 729.82] Diagnosis: Back pain[ICD9: 724.5] Diagnosis: Diarrhea[ICD9: 787.91] Diagnosis: Abdominal pain[ICD9: 789.00] Paty Crisostomo MD [facility] CPT- 4: 69742 09/24/2014 ([id number]) 01982 EST. PATIENT, LEVEL III Diagnosis: Varicose veins[ICD9: 454.9] Diagnosis: Edema[ICD9: 782.3] Chela Crisostomo MD, [facility] CPT-4: 96337 07/22/2014 ([id number]) 36734 EST. PATIENT, LEVEL IV Diagnosis: Abdominal pain[ICD9: 789.00] Diagnosis: Back pain[ICD9: 724.5] Paty Crisostomo MD, [facility] CPT-4: 61301 01/07/2014 ([id number]) 59238 EST. PATIENT, LEVEL IV Diagnosis: Diarrhea[ICD9: 787.91] Diagnosis: Nausea and vomiting[ICD9: 787.01] Diagnosis: Abdominal pain[ICD9: 789.00] Chela Crisostomo MD, [facility] CPT-4: 41324 10/30/2013 ([id number]) 76032 EST. PATIENT, LEVEL IV Diagnosis: Tinea cruris[ICD9: 110.3] Diagnosis: ESSENTIAL HYPERTENSION[SNOMED: 79328973] Diagnosis: Elevated blood sugar[ICD9: 790.29] Chela Crisostomo MD, [facility] CPT-4: 20482 09/25/2013 ([id number]) 04789 EST. PATIENT, LEVEL IV Diagnosis: Leg cramps[ICD9: 729.82] Diagnosis: ESSENTIAL HYPERTENSION[SNOMED: 14889920] Diagnosis: DEFICIENCY ANEMIA[ICD9: 281.9] Diagnosis: ABN THYROID FUNCT STUDY[ICD9: 794.5] Diagnosis: Abnormal glucose[ICD9: 790.29] Diagnosis: Insomnia[ICD9: 780.52] Diagnosis: Leg pain[ICD9: 729.5] Diagnosis: Fatigue[ICD9: 780.79] Chela Crisostomo MD, [facility] CPT-4: 04224 08/20/2013 94300 EST. PATIENT, LEVEL II Diagnosis: BACKACHE[ICD9: 724.5] Diagnosis: Cervicalgia[ICD9: 723.1] Diagnosis: Spasm of muscle[ICD9: 728.85] Diagnosis: Musculoskeletal disorder and symptoms referable to neck[ICD9: 723.9] Chela Crisostomo MD, [facility] CPT-4: 01465 07/06/2013 26935 EST. PATIENT, LEVEL IV Diagnosis: Health examination of defined subpopulation[ICD9: V70.5] Diagnosis: ESSENTIAL HYPERTENSION[SNOMED: 65004237] Chela Crisostomo MD [facility] CPT-4: 99152 04/30/2013 ([id number]) 54338 EST. PATIENT, LEVEL III Diagnosis: Diarrhea[ICD9: 787.91] Diagnosis: ALLERGIC RHINITIS[ICD9: 477.9] Paty Crisostomo MD, [facility] CPT- 4: 66804 12/29/2012 ([id number]) 15915 EST. PATIENT, LEVEL III Diagnosis: Unspecified deficiency anemia[ICD9: 281.9] Diagnosis: Abnormal thyroid blood test[ICD9: 794.5] Diagnosis: Abnormal thyroid exam[ICD9: 246.9] Diagnosis: Thinning hair[ICD9: 704.00] Paty Crisostomo MD [facility] CPT- 4: 48222 10/26/2012 ([id number]) 72664 EST. PATIENT, LEVEL III Diagnosis: ESSENTIAL HYPERTENSION[SNOMED: 75053954] Diagnosis: EDEMA[ICD9: 782.3] Paty Crisostomo MD [facility] CPT-4: 17069 07/12/2012 ([id number]) 82323 EST. PATIENT, LEVEL IV Diagnosis: ESSENTIAL HYPERTENSION[SNOMED: 82993497] Diagnosis: EDEMA[ICD9: 782.3] Diagnosis: VAC STREP PNEUMONIAE-FLU[ICD9: V06.6] Chela Crisostomo MD, [facility] CPT-4: 39009 06/28/2012 ([id number]) 91122 EST. PATIENT, LEVEL III Diagnosis: ESSENTIAL HYPERTENSION[SNOMED: 34296717] Paty Crisostomo MD [facility] CPT-4: 49416 05/24/2012 ([id number]) 19045 EST. PATIENT, LEVEL IV Diagnosis: ESSENTIAL HYPERTENSION[SNOMED: 75839549] Diagnosis: EDEMA[ICD9: 782.3] Diagnosis: Bibasilar crackles[ICD9: 786.7] Paty Crisostomo MD [facility] CPT- 4: 21776 05/09/2012 81934 EST. PATIENT, LEVEL IV Diagnosis: Acute pharyngitis[ICD9: 462] Diagnosis: Diarrhea[ICD9: 787.91] Chela Crisostomo MD, [facility] CPT-4: 22897 01/31/2012 60794 EST. PATIENT, LEVEL IV Diagnosis: Diarrhea[ICD9: 787.91] Diagnosis: Urinary tract infection[ICD9: 599.0] Diagnosis: ESSENTIAL HYPERTENSION[SNOMED: 80883166] Chela Crisostomo MD, [facility] CPT-4: 27945 12/29/2011 46501 EST. PATIENT, LEVEL IV Diagnosis: Abnormal bruising[ICD9: 782.9] Diagnosis: NSAID long-term use[ICD9: V58.64] Diagnosis: ESSENTIAL HYPERTENSION[SNOMED: 27224976] Chela Crisostomo MD, [facility] CPT-4: 11097 12/20/2011 88447 EST. PATIENT, LEVEL III Diagnosis: Hip pain, right[ICD9: 719.45] Diagnosis: Fall on same level from slipping, tripping, or stumbling[ICD9: E885.9 ] Diagnosis: ESSENTIAL HYPERTENSION[SNOMED: 73067160] Chela Crisostomo MD, [facility] CPT-4: 37370 08/31/2011 54890 EST. PATIENT, LEVEL III Diagnosis: Back pain[ICD9: 724.5] Diagnosis: Sciatica[ICD9: 724.3] Chela Crisostomo MD, [facility] CPT-4: 60062 08/17/2011 83713 EST. PATIENT, LEVEL IV Diagnosis: ACUTE PYELONEPHRITIS[ICD9: 590.10] Diagnosis: RENAL & URETERAL DIS NOS[ICD9: 593.9] Diagnosis: LUMBAGO[ICD9: 724.2] Paty Crisostomo MD, [facility] CPT-4: 23255 05/21/2011 Plan of Care Planned Activity Notes [...] acute concerns. 09/14/2017 Appointment: Annemarie Gibson WPtel: [phone] [phone] (15 min) Moderate 09/14/2017 Patient Education: Patient [...] warmth, discharge. 08/08/2017 App[facility]ment[phone] (10 min) Simple 08/08/2017 Patient Education: Patient [...] any worse 06/10/2017 Appointment: Chela Camara WPtel: [address] [place], [place] [phone] (30 min) Complex 06/10/2017 Patient Education: Patient Medication Summary Completed 06/10/2017 Visit Plan: Bfjv-nzxddtj-snzthqk today in the office-will start patient on anti viral medication as well as antibiotics and follow up in the office in 10 days, sooner if needed. 03/04/2017 Appointment: Chela Camara WPtel: [address] [place], [place] [phone] (15 min) Moderate 03/04/2017 Patient Education: Patient [...] care surrogate. 12/17/2016 Appointment: Chela Camara WPtel: [phone] [facility] - Annual Wellness Visit 12/17/2016 Patient Education: Patient Medication Summary Completed 12/17/2016 Visit Plan: Pneumonia-symptoms have resolved-no further follow up needed Left shoulder pain-suspect rotator cuff injury-recommend MRI- patient will consider-wants to rest for now and will let us know if she wants MRI 11/25/2016 Appointment: Chela Camara WPtel: [address] [place], [place] [phone] (30 min) Complex 11/25/2016 Patient Education: Patient Medication Summary Completed 11/25/2016 Visit Plan: Left shoulder/arm pain-recent fall-xray shoulder and arm Pneumonia-follow up-symptoms improved-repeat chest xray 11/18/2016 Appointment: Chela Camara WPtel: [address] [place], [place] [phone] (30 min) Complex 11/18/2016 Patient Education: Patient Medication Summary Completed 11/18/2016 Visit Plan: Pneumonia-continue antibioitic for 5 additional days-start albuterol nebulizer as directed-continue advair as directed-will continue oxygen due to hypoxemia-oxygen saturation 86% on room air at rest today in the office. Follow up in the office in 1 week-sooner if needed. 11/11/2016 Appointment: Chela Camara WPtel: [address] [place], [place] [phone] (30 min) Complex 11/11/2016 Patient Education: Patient [...] or prn. 06/21/2016 Appointment: Chela Camara WPtel: [phone] (15 min) Moderate 06/21/2016 Patient Education: [...] in blood pressure readings at home. Chronic ousk-silvyldzqfgj-hwuhr cymbalta 30mg daily-refill hydrocodone for prn use 05/20/2016 Appointment: Chela Camara WPtel: [phone] [phone] (30 min) Complex 05/20/2016 Patient Education: Patient Medication Summary Completed 05/20/2016 Care Plan: SCREENINGMAMMOGRAPHYDIGITAL [facility] : [address]-1 Pending 05/20/2016 Visit Plan: Hypertension - well controlled - continue with current medications, continue with no added salt diet. Pt has been encouraged to exercise daily. The pt has been advised to call the office if there are any acute concerns about change in blood pressure readings at home. DJD right knee- planning to have knee replacement next month with Dr Smyth at [facility] 01/26/2016 Appointment: Chela Camara WPtel: [phone] [phone] (15 min) Moderate 01/26/2016 Patient Education: Patient Medication Summary Completed 01/26/2016 Care Plan: Referral Order SNOMED-CT : [id number] Ordered 11/19/2015 Visit Plan: Abscess/Cellulitis - The [...] peripheral edema. 08/22/2015 Appointment: Chela Camara WPtel[phone] (30 min) [facility] 08/22/2015 Patient Education: Patient Medication Summary [...] fracture-refill hydrocodone 01/24/2015 Appointment: Chela Camara WPtel: [address] [place], [place] [phone] [place] [address] Follow up 01/24/2015 Patient Education: Patient Medication Summary Completed 01/24/2015 Patient Education: Hypertension Completed 01/24/2015 Visit Plan: Hypertension - well controlled - continue with current medications, continue with no added salt diet. The pt has been advised to call the office if there are any acute concerns about change in blood pressure readings at home. 12/23/2014 Appointment: Paty Crisostomo WPtel: [address] [place], [place] [phone] [facility] follow up 12/23/2014 Patient Education: Patient Medication Summary Completed 12/23/2014 Patient Education: Hypertension Completed 12/23/2014 Appointment: Paty Crisostomo WPtel: [address] [place], [place] [phone] Follow up 12/10/2014 Visit Plan: Hypertension - [...] movements. 10/08/2014 Appointment: [phone] [facility] [place] Follow up 10/08/2014 Patient Education: Patient Medication Summary Completed 10/08/2014 Patient Education: Hypertension Completed 10/08/2014 Care Plan: Referral Order SNOMED-CT : [id number] Ordered 10/08/2014 Visit Plan: Hypertension - uncontrolled [...] Completed 07/22/2014 Appointment: [phone] [facility] [place] Injection 06/14/2014 Patient Education: Patient Medication Summary Completed 06/14/2014 Patient Education: Patient Medication Summary Completed 06/13/2014 Visit Plan: Abd pain-flank seto-jqkjeefykhhykv-cmuytqiec with Dr Crisostomo-plan for outpatient IV fluids and IV antibiotics as well as pain medicaton while allowing her bowels to rest. Patient verbalized understanding of plan. 01/11/2014 Appointment: Chela Camara WPtel: [phone] [facility] [place] [address] 01/11/2014 Patient Education: Patient Medication Summary Completed [...] Medication Summary Completed 01/07/2014 Visit Plan: Abdominal klysuszc-nanmnwuh-ptvkl flagyl and probiotic and monitor symptoms. Call or go to ER for any worsening or worrisome symptoms. Recommend clear liquid diet advance to bland as tolerated. Toradol and phenergan injfections today in the office for acute symptoms. Patient verbalized understanding of plan. 10/30/2013 Appointment: Chela Camara WPtel: [facility]5 [phone] [facility] 10/30/2013 Patient Education: Patient Medication Summary Completed [...] requip for restless leg syndrome. Elevated blood asxuqk-iolqererx-qlvbmhjg episodes-check Hgb A1C and TSH Fatigue-check labs 08/20/2013 Appointment: Chela Camara WPtel: [address] [place] [address] Other 08/20/2013 Patient Education: Patient Medication Summary [...] disease process. 07/06/2013 Appointment: Chela Camara WPtel: [address] [place] [address] Other 07/06/2013 Patient Education: Patient Medication Summary [...] attached forms. 04/30/2013 Appointment: Chela Camara WPtel: [address] [place] [address] Other 04/30/2013 Patient Education: Patient Medication Summary [...] report. 10/26/2012 Appointment: Paty Crisostomo WPtel: [phone] [facility] Other 10/26/2012 Patient Education: Patient Medication [...] peripheral edema. 07/12/2012 Appointment: Paty Crisostomo WPtel: [phone] [facility] Follow up 07/12/2012 Patient Education: Patient Medication Summary Completed 07/12/2012 Patient Education: High Blood Pressure: Essential Hypertension Completed 2011 Appointment: Paty Crisostomo WPtel: [phone] [facility] Follow up 07/03/2012 Visit Plan: Hypertension [...] the office 06/28/2012 Appointment: Chela Camara WPtel: [phone] [facility] [place] [address] Other 06/28/2012 Patient Education: Patient Medication Summary [...] PRESSURE READINGS. 05/24/2012 Appointment: Chela Camara WPtel: [phone] [phone] Follow up 05/24/2012 Patient Education: Patient [...] use compression socks from toes to thighs. Pfnfcpgm-hmzih-oqvfa xray and labs-will proceed as indicated 05/09/2012 Appointment: [facility] Cam[phone] [phone] Other 05/09/2012 Patient Education: Patient Medication [...] of plan. 01/31/2012 Appointment: [facility] Cam[phone] Other 01/31/2012 Patient Education: Patient Medication Summary [...] acute concerns. 12/29/2011 Appointment: Chela Camara WPtel: [facility]5 [phone] [place] Other 12/29/2011 Patient Education: Patient Medication Summary [...] at home. 12/20/2011 Appointment: Chela Camara WPtel: [facility]0 [phone] [place] Other 12/20/2011 Patient Education: Patient Medication [...] at home. 08/31/2011 Appointment: Chela Camara WPtel: [facility]2 [phone] [place] Other 08/31/2011 Patient Education: Patient Medication Summary [...] treatment indicated. 08/17/2011 Appointment: Chela Camara WPtel: [phone] [phone] [place] [address] Other 08/17/2011 Patient Education: Patient Medication Summary Completed 08/17/2011 Patient Education: .Amazing charts Exercise for Sciatica Completed 08/17/2011 Visit Plan: Pyelonephritis - stop nitrofurantoin - starton levofloxacin 500mg qday x [address] scan scheduled for @ 4:15pm Start the levofloxacin tonight, start on a probiotic, such as [employer] or [employer] to prevent diarrhea while on the antibiotic. Back pain - due to pyelonephritis - call if not improved. 05/21/2011 Appointment: Paty Crisostomo [facility]el[facility] [phone] [facility] Follow up 05/21/2011 Patient Education: Patient Medication [...] replacement next month with Dr Smyth at [facility] . Hypertension - well controlled - continue [...] readings at home. culture rash buttock . Buut-mqbdiuw-rxbksew today in the office-will start patient on [...] with lab report. PROBIOTIC TWICE DAILY. Abdominal emaaypzd-ztrquktg-fodcy flagyl and probiotic and monitor symptoms. Call [...] use compression socks from toes to thighs. Sahdetqk-njvzl-ectrk xray and labs-will proceed as indicated albuterol [...] tonight, start on a probiotic, such as [employer] or [employer] to prevent diarrhea while on the antibiotic. [...] . Pressure ulcer of buttock-wound care instructions provided-medihoney applied today and instructed patient to call [...] in blood pressure readings at home. Chronic xsqm-gzhaappuqozb-dxbpc cymbalta 30mg daily-refill hydrocodone for prn use [...] No further treatment indicated. . Abd pain-flank dihc-venvmlnwchhczw-ptzsduxpg with Dr Crisostomo-plan for outpatient IV fluids and IV antibiotics as well as pain medicaton while allowing her bowels to rest. Patient verbalized understanding of plan. RETURN TOMORROW MORNING FOR DRESSING SHRILJ-WI-IURDHBWZTC OF FINGER . Cellulitis - continue with oral antibiotics as previously directed, return to clinic as previously directed, call for acute change in symptoms, worsening redness, warmth, discharge. . Leg cramps-plan to check labs including magnesium, iron, and vitamin D levels-if okay, may consider trial of requip for restless leg syndrome. Elevated blood krwrle-tlgrgcowm-twzksgfz episodes-check Hgb A1C and TSH Fatigue-check labs [...]
--- OUTSIDE RECORDS SUMMARY | 2017-11-27 08:39 | XMS REPORT | CCD ---
Author Author [facility] Organization [facility] Address [address] [place] [address] Phone Care Team Providers Care Director Of Workforce Development Name Role Phone PP Unavailable CCM Unavailable Summary Purpose Interface Exchange Insurance Providers Payer name Policy type / Coverage type Covered constitution party ID Effective Begin Date Effective End Date WPS Medicare Part B [id number] 2014 Unknown [employer] [id number] 2014 Unknown Family history Mother Diagnosis Age At Onset No Family Disease Entered N/A Father Diagnosis Age At Onset No Family Disease Entered N/A Social History Social History Element Codes Description Effective Dates Marital status Unknown 08/18/2011 Employment Unknown 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 [employer] 08/18/[address]: 638211993 Nonsmoker 08/18/[address]: 284543 Currently drinks alcohol 08/18/2011 Frequency of drinks SNOMED CT: 555778413 Drinks rarely rum occasionally 08/18/2011 Allergies, Adverse [...] diclofenac sodium 75 mg tablet,delayed release RxNorm: 119247 TAKE TWO TABLETS BY MOUTH TWICE A DAY 10/17/2017 02/13/2018 Active diclofenac sodium 75 mg tablet,delayed release RxNorm: 621472 TAKE TWO TABLETS BY MOUTH TWICE A DAY 10/17/2017 10/16/2017 Inactive hydrocodone 10 mg-acetaminophen 325 mg tablet RxNorm: 614456 1 Tablet(s) PO Q4 PRN TAKE ONE TABLET BY MOUTH EVERY 4 HOURS NEEDED FOR PAIN 09/20/2017 10/19/2017 Active amlodipine 5 mg tablet RxNorm: 036611 TAKE ONE TABLET BY MOUTH DAILY 09/20/2017 03/18/2018 Active mupirocin 2 % topical ointment RxNorm: 782546 1 Application TOP BID 09/16/2017 No Stop Date Active ceftriaxone 500 mg solution for injection RxNorm: 4556440 1 Gram(s) Inj 09/14/2017 09/14/2017 Inactive Cymbalta 30 mg capsule,delayed release RxNorm: 523581 TAKE ONE CAPSULE BY MOUTH DAILY 08/15/2017 11/07/2018 Active clindamycin 300 mg capsule RxNorm: 893400 1 Capsule(s) PO TID 08/10/2017 08/16/2017 Inactive clindamycin 300 mg capsule RxNorm: 318268 1 Capsule(s) PO TID 08/10/2017 08/09/2017 Inactive ceftriaxone 500 mg solution for injection RxNorm: 6503903 Inj 08/09/2017 08/09/2017 Inactive Bactrim DS 800 mg-160 mg tablet RxNorm: 118262 1 Tablet(s) PO BID 08/09/2017 08/15/2017 Inactive ER CHANGED BASED ON CULTURE REPORT trazodone 50 mg tablet RxNorm: 362771 1.5 Tablet(s) PO QHS 02/03/2018 Active Requip 0.5 mg tablet RxNorm: 039791 1 Tablet(s) PO QHS TAKE ONE TABLET BY MOUTH DAILY 08/08/2017 02/03/2018 Active ceftriaxone 500 mg solution for injection RxNorm: 4798563 1 Milliliter(s) Inj 08/08/2017 08/08/2017 Inactive hydrocodone 10 mg-acetaminophen 325 mg tablet RxNorm: 028535 1 Tablet(s) PO Q4 PRN TAKE ONE TABLET BY MOUTH EVERY 4 HOURS NEEDED FOR PAIN 08/08/2017 09/06/2017 Inactive Phenergan-Codeine 6.25 mg-10 mg/5 mL syrup RxNorm: 556105 5 Milliliter(s) PO Q6 as needed cough 07/20/2017 No Stop Date Active trazodone 50 mg tablet RxNorm: 124293 1/2-1 Tablet(s) PO QHS 08/07/2017 Inactive 1/2 TO 1 tablet, NOT 1.5 tablet diclofenac sodium 75 mg tablet,delayed release RxNorm: 066155 TAKE TWO TABLETS BY MOUTH TWICE A DAY 06/28/2017 08/26/2017 Inactive Voltaren 1 % topical gel RxNorm: 943095 APPLY TOPICALLY FOUR TIMES A DAY 06/24/2017 06/18/2018 Active prednisone 20 mg tablet RxNorm: 851977 2 Tablet(s) PO daily 11/201606/20/2017 Inactive ketoconazole 2 % topical cream RxNorm: 391646 1 Application TOP BID 06/21/2017 06/30/2017 Inactive right neck and groin ketoconazole 2 % topical cream RxNorm: 135496 1 Application TOP BID 06/21/2017 06/20/2017 Inactive right neck and groin hydrocodone 10 mg-acetaminophen 325 mg tablet RxNorm: 121616 1 Tablet(s) PO Q4 PRN TAKE ONE TABLET BY MOUTH EVERY 4 HOURS NEEDED FOR PAIN 06/21/2017 07/20/2017 Inactive prednisone 20 mg tablet RxNorm: 521720 2 Tablet(s) PO daily 11/201606/25/2017 Inactive Augmentin 500 mg-125 mg tablet RxNorm: 364447 1 Tablet(s) PO TID 06/13/2017 06/12/2017 Inactive take probiotice BID x7 Augmentin 500 mg-125 mg tablet RxNorm: 323434 1 Tablet(s) PO TID 06/13/2017 06/19/2017 Inactive take probiotice BID x7 triamcinolone acetonide 0.5 % topical cream RxNorm: 7893353 1 Application TOP BID 06/10/2017 06/19/2017 Inactive trazodone 50 mg tablet RxNorm: 724378 1/2-1 Tablet(s) PO QHS 07/13/2017 Inactive hydrocodone 10 mg-acetaminophen 325 mg tablet RxNorm: 625489 1 Tablet(s) PO Q4 PRN TAKE ONE TABLET BY MOUTH EVERY 4 HOURS NEEDED FOR PAIN 04/08/2017 05/07/2017 Inactive Benicar 40 mg tablet RxNorm: 737076 TAKE ONE TABLET BY MOUTH DAILY 03/16/2017 12/10/2017 Active acyclovir 800 mg tablet RxNorm: 932981 TAKE ONE TABLET BY MOUTH FOUR TIMES A DAY 03/16/2017 03/25/2017 Inactive Bactrim DS 800 mg-160 mg tablet RxNorm: 954226 1 Tablet(s) PO BID 03/07/2017 03/13/2017 Inactive Bactrim DS 800 mg-160 mg tablet RxNorm: 897032 1 Tablet(s) PO BID 03/07/2017 03/06/2017 Inactive mupirocin 2 % topical ointment RxNorm: 469907 1 Application TOP BID 03/07/2017 03/06/2017 Inactive mupirocin 2 % topical ointment RxNorm: 577621 1 Application TOP BID 03/07/2017 03/16/2017 Inactive acyclovir 800 mg tablet RxNorm: 591391 1 Tablet(s) PO QID 03/0403/13/2017 Inactive Keflex 500 mg capsule RxNorm: 946601 1 Capsule(s) PO TID 201603/06/2017 Inactive amlodipine 5 mg tablet RxNorm: 544872 TAKE ONE TABLET BY MOUTH DAILY 02/22/2017 08/20/2017 Inactive gabapentin 100 mg capsule RxNorm: 997809 TAKE TWO CAPSULES BY MOUTH EVERY MORNING AND TAKE THREE CAPSULES BY MOUTH EVERY EVENING NEEDED 02/01/2018 Active Macrodantin 50 mg capsule RxNorm: 833707 TAKE ONE CAPSULE BY MOUTH DAILY 02/07/2017 02/01/2018 Active Cymbalta 30 mg capsule,delayed release RxNorm: 192406 TAKE ONE CAPSULE BY MOUTH DAILY 02/07/2017 08/05/2017 Inactive Requip 0.5 mg tablet RxNorm: 419305 TAKE ONE TABLET BY MOUTH DAILY 01/21/2017 02/17/2017 Inactive estradiol 0.5 mg tablet RxNorm: 431812 Tablet(s) TAKE ONE-HALF TABLET BY MOUTH TWO TIMES A DAY 01/18/2017 01/12/2018 Active fenofibrate nanocrystallized 145 mg tablet RxNorm: 727979 TAKE ONE TABLET BY MOUTH DAILY 01/18/2017 01/12/2018 Active Zetia 10 mg tablet RxNorm: 653797 TAKE ONE TABLET BY MOUTH DAILY 01/18/2017 01/12/2018 Active Zetia 10 mg tablet RxNorm: 921956 TAKE ONE TABLET BY MOUTH DAILY 01/18/2017 01/17/2017 Inactive hyoscyamine ER 0.375 mg tablet,extended release,12 hr RxNorm: 8676260 TAKE ONE TABLET BY MOUTH TWICE A DAY 01/10/2017 Inactive Flonase 50 mcg/actuation nasal spray,suspension RxNorm: 1625747 1 Lamy NASAL each nare daily 12/17/2016 04/15/2017 Inactive [SAVINGS FOR UNINSURED PATIENTS -- BIN:187407, PCN: ASPROD1, Group: [id number], ID# [id number], Process claim through Simple[employer], for questions: . THIS IS NOT INSURANCE.] Voltaren 1 % topical gel RxNorm: 219358 APPLY TOPICALLY FOUR TIMES A DAY 12/17/2016 03/26/2017 Inactive hydrocodone 10 mg-acetaminophen 325 mg tablet RxNorm: 180700 1 Tablet(s) PO Q4 PRN TAKE ONE TABLET BY MOUTH EVERY 4 HOURS NEEDED FOR PAIN 12/17/2016 01/15/2017 Inactive (Appended: Controlled substance eRx refill - RxReferenceNumber: [id number]) diclofenac sodium 75 mg tablet,delayed release RxNorm: 195531 TAKE TWO TABLETS BY MOUTH TWICE A DAY 11/22/2016 05/20/2017 Inactive Cymbalta 30 mg capsule,delayed release RxNorm: 244171 TAKE ONE CAPSULE BY MOUTH DAILY 11/22/2016 02/06/2017 Inactive albuterol sulfate 2.5 mg/0.5 mL solution for nebulization RxNorm: 375449 3 Milliliter(s) INH Q4 PRN 11/11/2016 No Stop Date Active Levaquin 500 mg tablet RxNorm: 923308 1 Tablet(s) PO daily 11/15/2016 Inactive Zetia 10 mg tablet RxNorm: 355483 TAKE ONE TABLET BY MOUTH DAILY 10/21/2016 10/27/2016 Inactive fenofibrate nanocrystallized 145 mg tablet RxNorm: 115629 TAKE ONE TABLET BY MOUTH DAILY 10/21/2016 01/17/2017 Inactive estradiol 0.5 mg tablet RxNorm: 254334 TAKE ONE-HALF TABLET BY MOUTH TWO TIMES A DAY 10/20/2016 01/17/2017 Inactive Kenalog 40 mg/mL suspension for injection RxNorm: 1521182 Milliliter(s) Inj 09/27/2016 09/27/2016 Inactive hydrocodone 10 mg-acetaminophen 325 mg tablet RxNorm: 797984 1 Tablet(s) PO Q4 PRN TAKE ONE TABLET BY MOUTH EVERY 4 HOURS NEEDED FOR PAIN 09/21/2016 10/20/2016 Inactive (Appended: Controlled substance eRx refill - RxReferenceNumber: [id number]) Flonase 50 mcg/actuation nasal spray,suspension RxNorm: 0812056 1 Lamy NASAL each nare daily 09/03/2016 12/16/2016 Inactive [SAVINGS FOR UNINSURED PATIENTS -- BIN:520234, PCN: ASPROD1, Group: [id number], ID# [id number], Process claim through Simple[employer], for questions: . THIS IS NOT INSURANCE.] amlodipine 5 mg tablet RxNorm: 081016 TAKE ONE TABLET BY MOUTH DAILY 08/19/2016 02/14/2017 Inactive Cymbalta 30 mg capsule,delayed release RxNorm: 353541 TAKE ONE CAPSULE BY MOUTH DAILY 08/17/2016 11/21/2016 Inactive Requip 0.5 mg tablet RxNorm: 855303 TAKE ONE TABLET BY MOUTH DAILY 07/22/2016 07/31/2016 Inactive scopolamine 1.5 mg transdermal patch (1 mg over 3 days) RxNorm: 641023 2 Patch TD q 3 days 07/09/2016 No Stop Date Active scopolamine 1.5 mg transdermal patch (1 mg over 3 days) RxNorm: 083657 2 Patch TD q 3 days 07/09/2016 07/08/2016 Inactive hydrocodone 10 mg-acetaminophen 325 mg tablet RxNorm: 427372 1 Tablet(s) PO Q4 PRN TAKE ONE TABLET BY MOUTH EVERY 4 HOURS NEEDED FOR PAIN 05/20/2016 06/18/2016 Inactive (Appended: Controlled substance eRx refill - RxReferenceNumber: [id number]) Cymbalta 30 mg capsule,delayed release RxNorm: 906924 1 Capsule(s) PO daily 05/20/2016 05/20/2016 Inactive fenofibrate nanocrystallized 145 mg tablet RxNorm: 330056 1 Tablet(s) PO daily 04/29/2016 10/20/2016 Inactive estradiol 0.5 mg tablet RxNorm: 819530 TAKE ONE-HALF TABLET BY MOUTH TWO TIMES A DAY 04/27/2016 10/19/2016 Inactive Zetia 10 mg tablet RxNorm: 888165 TAKE ONE TABLET BY MOUTH DAILY 04/16/2016 10/12/2016 Inactive diclofenac sodium 75 mg tablet,delayed release RxNorm: 491898 2 Tablet(s) PO BID 03/25/2016 07/22/2016 Inactive Benicar 40 mg tablet RxNorm: 652996 1 Tablet(s) PO daily 201503/15/2017 Inactive ok to dispense generic if available hydrocodone 10 mg-acetaminophen 325 mg tablet RxNorm: 851117 1 Tablet(s) PO Q4 PRN TAKE ONE TABLET BY MOUTH EVERY 4 HOURS NEEDED FOR PAIN 03/25/2016 04/23/2016 Inactive (Appended: Controlled substance eRx refill - RxReferenceNumber: [id number]) amlodipine 5 mg tablet RxNorm: 289622 TAKE ONE TABLET BY MOUTH DAILY 02/09/2016 08/06/2016 Inactive Benicar 40 mg tablet RxNorm: 757555 1 Tablet(s) PO daily 201503/24/2016 Inactive ok to dispense generic if available hydrocodone 10 mg-acetaminophen 325 mg tablet RxNorm: 510842 1 Tablet(s) PO Q4 PRN TAKE ONE TABLET BY MOUTH EVERY 4 HOURS NEEDED FOR PAIN 01/26/2016 03/24/2016 Inactive (Appended: Controlled substance eRx refill - RxReferenceNumber: [id number]) gabapentin 100 mg capsule RxNorm: 065921 TAKE TWO CAPSULES BY MOUTH EVERY MORNING AND TAKE THREE CAPSULES BY MOUTH EVERY EVENING NEEDED 11/201502/06/2017 Inactive Zetia 10 mg tablet RxNorm: 430693 TAKE ONE TABLET BY MOUTH DAILY 01/20/2016 04/15/2016 Inactive hyoscyamine ER 0.375 mg tablet,extended release,12 hr RxNorm: 9268558 TAKE ONE TABLET BY MOUTH TWICE A DAY 12/30/201505/2016 Inactive Voltaren 1 % topical gel RxNorm: 119796 APPLY TOPICALLY FOUR TIMES A DAY 12/09/2015 08/04/2016 Inactive doxycycline hyclate 100 mg capsule RxNorm: 2770186 1 Capsule(s) PO BID 11/12/2015 11/21/2015 Inactive Macrodantin 50 mg capsule RxNorm: 224654 1 Capsule(s) PO daily 11/07/2015 01/29/2017 Inactive [SAVINGS FOR UNINSURED PATIENTS -- BIN:728911, PCN: ASPROD1, Group: [id number], ID# [id number], Process claim through Simple[employer], for questions: [phone]. THIS IS NOT INSURANCE.] Requip 0.5 mg tablet RxNorm: 310770 1 Tablet(s) PO daily TAKE ONE TABLET BY MOUTH DAILY 11/06/2015 07/21/2016 Inactive Mobic 15 mg tablet RxNorm: 786585 TAKE ONE TABLET BY MOUTH EVERY DAY 10/21/2015 01/25/2016 Inactive estradiol 0.5 mg tablet RxNorm: 535425 TAKE ONE-HALF TABLET BY MOUTH TWO TIMES A DAY 10/20/2015 04/16/2016 Inactive hydrocodone 10 mg-acetaminophen 325 mg tablet RxNorm: 251949 1 Tablet(s) PO Q4 PRN TAKE ONE TABLET BY MOUTH EVERY 4 HOURS NEEDED FOR PAIN 09/29/2015 11/27/2015 Inactive (Appended: Controlled substance eRx refill - RxReferenceNumber: [id number]) Benicar 40 mg tablet RxNorm: 921108 1 Tablet(s) PO daily 201501/25/2016 Inactive [SAVINGS FOR NON-COVERED DRUGS -- BIN:057279, PCN: ASPROD1, Group: XXXXX, ID # [id number], Questions: . THIS IS NOT INSURANCE.] Benicar 40 mg tablet RxNorm: 044683 1/2 Tablet(s) PO daily 09/22/2015 Inactive [SAVINGS FOR NON-COVERED DRUGS -- BIN:620050, PCN: ASPROD1, Group: XXXXX, ID# [id number], Questions: . THIS IS NOT INSURANCE.] scopolamine 1.5 mg transdermal patch (1 mg over 3 days) RxNorm: 152354 1 Patch TD q72 hours 09/09/2015 05/18/2016 Inactive scopolamine 1.5 mg transdermal patch (1 mg over 3 days) RxNorm: 815028 1 TD q72 hours 09/09/2015 09/08/2015 Inactive Requip 0.5 mg tablet RxNorm: 108967 1 Tablet(s) PO daily TAKE ONE TABLET BY MOUTH DAILY 08/22/2015 11/05/2015 Inactive hydrocodone 10 mg-acetaminophen 325 mg tablet RxNorm: 325681 1 Tablet(s) PO Q4 PRN TAKE ONE TABLET BY MOUTH EVERY 4 HOURS NEEDED FOR PAIN 08/22/2015 09/28/2015 Inactive (Appended: Controlled substance eRx refill - RxReferenceNumber: [id number]) fenofibrate nanocrystallized 145 mg tablet RxNorm: 709262 1 Tablet(s) PO daily 08/22/2015 02/17/2016 Inactive amlodipine 5 mg tablet RxNorm: 288298 1 Tablet(s) PO daily 12/201402/08/2016 Inactive gabapentin 100 mg capsule RxNorm: 611939 Capsule(s) PO TAKE THREE CAPSULE PO IN THE AM, 1 AT NOON AND 3 PO IN THE PIOTR 07/21/2015 No Stop Date Active [SAVINGS FOR NON-COVERED DRUGS -- BIN:793855, PCN: ASPROD1, Group: XXXXX, ID# [id number], Questions: . THIS IS NOT INSURANCE.] Zetia 10 mg tablet RxNorm: 795632 1 Tablet(s) PO daily 201401/16/2016 Inactive hydrocodone 10 mg-acetaminophen 325 mg tablet RxNorm: 786955 1 Tablet(s) PO Q4 PRN TAKE ONE TABLET BY MOUTH EVERY 4 HOURS NEEDED FOR PAIN 07/21/2015 08/21/2015 Inactive (Appended: Controlled substance eRx refill - RxReferenceNumber: [id number]) Requip 0.5 mg tablet RxNorm: 869475 TAKE ONE TABLET BY MOUTH DAILY 06/24/2015 08/21/2015 Inactive Benicar 40 mg tablet RxNorm: 386329 1/2 Tablet(s) PO daily 11/201409/14/2015 Inactive [SAVINGS FOR NON-COVERED DRUGS -- BIN:726341, PCN: ASPROD1, Group: XXXXX, ID# [id number], Questions: . THIS IS NOT INSURANCE.] hydrocodone 10 mg-acetaminophen 325 mg tablet RxNorm: 489944 1 Tablet(s) PO Q4 PRN TAKE ONE TABLET BY MOUTH EVERY 4 HOURS NEEDED FOR PAIN 04/28/2015 06/26/2015 Inactive (Appended: Controlled substance eRx refill - RxReferenceNumber: [id number]) estradiol 0.5 mg tablet RxNorm: 833594 TAKE ONE-HALF TABLET BY MOUTH TWO TIMES A DAY 04/21/2015 10/17/2015 Inactive Mobic 15 mg tablet RxNorm: 403387 TAKE ONE TABLET BY MOUTH EVERY DAY 03/27/2015 09/22/2015 Inactive hydrochlorothiazide 25 mg tablet RxNorm: 533261 1 Tablet(s) PO daily 03/10/2015 03/09/2015 Inactive hydrochlorothiazide 25 mg tablet RxNorm: 535185 1 Tablet(s) PO daily 03/10/2015 03/23/2015 Inactive hydrocodone 10 mg-acetaminophen 325 mg tablet RxNorm: 979901 1 Tablet(s) PO Q4 PRN TAKE ONE TABLET BY MOUTH EVERY 4 HOURS NEEDED FOR PAIN 01/24/2015 03/24/2015 Inactive (Appended: Controlled substance eRx refill - RxReferenceNumber: [id number]) gabapentin 100 mg capsule RxNorm: 169625 Capsule(s) PO TAKE TWO CAPSULE PO IN THE AM AND 3 PO IN THE PIOTR PRN 01/17/201509/2014 Inactive [SAVINGS FOR NON-COVERED DRUGS -- BIN:197672, PCN: ASPROD1, Group: XXXXX, ID# [id number], Questions: [phone]. THIS IS NOT INSURANCE.] Requip 0.5 mg tablet RxNorm: 147591 TAKE ONE TABLET BY MOUTH EVERY DAY 01/16/2015 05/15/2015 Inactive Requip 0.5 mg tablet RxNorm: 219220 TAKE ONE TABLET BY MOUTH EVERY DAY 01/16/2015 01/15/2015 Inactive Requip 0.5 mg tablet RxNorm: 582421 TAKE ONE TABLET BY MOUTH EVERY DAY 01/16/2015 01/15/2015 Inactive estradiol 0.5 mg tablet RxNorm: 732876 TAKE ONE-HALF TABLET BY MOUTH TWO TIMES A DAY 01/14/2015 04/13/2015 Inactive Benicar 40 mg tablet RxNorm: 702152 1/2 Tablet(s) PO daily 02/201505/21/2015 Inactive [SAVINGS FOR NON-COVERED DRUGS -- BIN:962177, PCN: ASPROD1, Group: XXXXX, ID# [id number], Questions: . THIS IS NOT INSURANCE.] Cymbalta 30 mg capsule,delayed release RxNorm: 673770 1 Capsule(s) PO daily 12/23/2014 05/19/2016 Inactive [SAVINGS FOR NON-COVERED DRUGS -- BIN:274733, PCN: ASPROD1, Group: XXXXX, ID# [id number], Questions: . THIS IS NOT INSURANCE.] Benicar 40 mg tablet RxNorm: 743144 1 Tablet(s) PO daily 201412/22/2014 Inactive [SAVINGS FOR UNINSURED PATIENTS -- BIN:836009, PCN: ASPROD1, Group: AME08, ID # [id number], Process claim through SimpleSite, for questions: . THIS IS NOT INSURANCE.] hydrocodone 10 mg-acetaminophen 325 mg tablet RxNorm: 789075 Tablet(s) PO TAKE ONE TABLET BY MOUTH EVERY 4 HOURS NEEDED FOR PAIN 201401/23/2015 Inactive (Appended: Controlled substance eRx refill - RxReferenceNumber: [id number]) Flonase 50 mcg/actuation nasal spray,suspension RxNorm: 682402 1 Lamy NASAL each nare daily 11/04/2014 11/03/2014 Inactive Keflex 500 mg capsule RxNorm: 706569 1 Capsule(s) PO QID 201411/03/2014 Inactive take probiotic while on ABT Keflex 500 mg capsule RxNorm: 805436 1 Capsule(s) PO QID 201411/10/2014 Inactive take probiotic while on ABT [SAVINGS FOR UNINSURED PATIENTS -- BIN:078402, PCN: ASPROD1, Group: AME08, ID# [id number], Process claim through [employer], for questions: . THIS IS NOT INSURANCE.] Flonase 50 mcg/actuation nasal spray,suspension RxNorm: 2945179 1 Lamy NASAL each nare daily 11/04/2014 01/02/2015 Inactive [SAVINGS FOR UNINSURED PATIENTS -- BIN:884750, PCN: ASPROD1, Group: AME08, ID# [id number], Process claim through [employer], for questions: . THIS IS NOT INSURANCE.] Benicar 40 mg tablet RxNorm: 631128 1 Tablet(s) PO daily 201411/05/2014 Inactive [SAVINGS FOR UNINSURED PATIENTS -- BIN:570364, PCN: ASPROD1, Group: AME08, ID # [id number], Process claim through [employer], for questions: . THIS IS NOT INSURANCE.] Benicar 40 mg tablet RxNorm: 451518 TAKE ONE TABLET BY MOUTH DAILY 10/28/2014 01/25/2015 Inactive hyoscyamine ER 0.375 mg tablet,extended release,12 hr RxNorm: 5997111 1 Tablet(s) PO BID 10/08/2014 12/29/2015 Inactive [SAVINGS FOR UNINSURED PATIENTS -- BIN:721658 , PCN: ASPROD1, Group: AME08, ID# [id number], Process claim through [employer], for questions: . THIS IS NOT INSURANCE.] Macrodantin 50 mg capsule RxNorm: 754023 1 Capsule(s) PO daily 10/08/2014 11/06/2015 Inactive [SAVINGS FOR UNINSURED PATIENTS -- BIN:113790, PCN: ASPROD1, Group: AME08, ID# [id number], Process claim through [employer], for questions: [phone]. THIS IS NOT INSURANCE.] Benicar 40 mg tablet RxNorm: 037473 1 Tablet(s) PO daily 201409/29/2014 Inactive Benicar 40 mg tablet RxNorm: 592067 1 Tablet(s) PO daily 201410/27/2014 Inactive [SAVINGS FOR UNINSURED PATIENTS -- BIN:530369, PCN: ASPROD1, Group: AME08, ID # [id number], Process claim through [employer], for questions: . THIS IS NOT INSURANCE.] Cipro 500 mg tablet RxNorm: 468732 1 Tablet(s) PO BID 201410/06/2014 Inactive [SAVINGS FOR UNINSURED PATIENTS -- BIN:989885, PCN: ASPROD1, Group: AME08, ID # [id number], Process claim through [employer], for questions: . THIS IS NOT INSURANCE.] Flagyl 500 mg tablet RxNorm: 506147 1 Tablet(s) PO TID 201410/06/2014 Inactive [SAVINGS FOR UNINSURED PATIENTS -- BIN:287057, PCN: ASPROD1, Group: AME08, ID # [id number], Process claim through [employer], for questions: . THIS IS NOT INSURANCE.] estradiol 0.5 mg tablet RxNorm: 104084 1/2 Tablet(s) PO BID 02/201512/22/2014 Inactive [SAVINGS FOR UNINSURED PATIENTS -- BIN:269537, PCN: ASPROD1, Group: AME08 , ID# [id number], Process claim through [employer], for questions: . THIS IS NOT INSURANCE.] Bystolic 10 mg tablet RxNorm: 888274 1 Tablet(s) PO BID 201410/07/2014 Inactive [SAVINGS FOR UNINSURED PATIENTS -- BIN:317357, PCN: ASPROD1, Group: AME08, ID # [id number], Process claim through Simple[employer], for questions: . THIS IS NOT INSURANCE.] hydrochlorothiazide 25 mg tablet RxNorm: 141945 TAKE ONE TABLET BY MOUTH EVERY DAY 08/19/2014 12/22/2014 Inactive hydrochlorothiazide 25 mg tablet RxNorm: 330798 1 Tablet(s) PO daily 08/19/2014 11/26/2014 Inactive [SAVINGS FOR UNINSURED PATIENTS -- BIN:973816, PCN: ASPROD1, Group: AME08, ID# [id number], Process claim through SimpleSite, for questions: [phone]. THIS IS NOT INSURANCE.] hydrocodone 10 mg-acetaminophen 325 mg tablet RxNorm: 262300 Tablet(s) PO TAKE ONE TABLET BY MOUTH EVERY 4 HOURS NEEDED FOR PAIN 201311/05/2014 Inactive (Appended: Controlled substance eRx refill - RxReferenceNumber: [id number]) Requip 0.5 mg tablet RxNorm: 805873 TAKE ONE TABLET BY MOUTH EVERY DAY 07/03/2014 11/29/2014 Inactive hydrocodone 10 mg-acetaminophen 325 mg tablet RxNorm: 451864 Tablet(s) PO TAKE ONE TABLET BY MOUTH EVERY 4 HOURS NEEDED FOR PAIN 201307/25/2014 Inactive (Appended: Controlled substance eRx refill - RxReferenceNumber: [id number]) Mobic 15 mg tablet RxNorm: 402066 TAKE ONE TABLET BY MOUTH EVERY DAY 06/11/2014 03/07/2015 Inactive Klor-Con 10 mEq tablet,extended release RxNorm: 581583 TAKE 4 TABLETS ONCE DAILY 03/11/2014 03/23/2015 Inactive hydrocodone 10 mg-acetaminophen 325 mg tablet RxNorm: 288114 Tablet(s) PO TAKE ONE TABLET BY MOUTH EVERY 4 HOURS NEEDED FOR PAIN 201306/12/2014 Inactive (Appended: Controlled substance eRx refill - RxReferenceNumber: [id number]) hydrocodone 10 mg-acetaminophen 325 mg tablet RxNorm: 8929948 1 Tablet(s) PO Q4 PRN 02/05/2014 05/05/2014 Inactive Zithromax Z-Rangel 250 mg tablet RxNorm: 534980 Tablet(s) PO UD No Stop Date Active Flagyl 500 mg tablet RxNorm: 750235 1 Tablet(s) PO TID 201301/16/2014 Inactive Cipro 500 mg tablet RxNorm: 014222 1 Tablet(s) PO BID 201301/16/2014 Inactive Cipro 500 mg tablet RxNorm: 189040 1 Tablet(s) PO BID 201301/06/2014 Inactive Requip 0.5 mg tablet RxNorm: 003617 Tablet(s) PO TAKE ONE TABLET BY MOUTH EVERY DAY 12/25/2013 07/02/2014 Inactive zolpidem 5 mg tablet RxNorm: 118772 Tablet(s) PO TAKE ONE TABLET BY MOUTH AT BEDTIME NEEDED 11/26/2013 No Stop Date Active (Appended: Controlled substance eRx refill - RxReferenceNumber: [id number]) zolpidem 5 mg tablet RxNorm: 767106 1 Tablet(s) PO HS PRN 11/2611/26/2013 Inactive Klor-Con 10 mEq tablet,extended release RxNorm: 981371 Tablet(s) PO TAKE 4 TABLETS ONCE DAILY 11/05/2013 03/10/2014 Inactive Nasonex 50 mcg/actuation Lamy RxNorm: 168973 2 Lamy NASAL daily 2 sprays each nare once daily 10/30/2013 No Stop Date Active Requip 0.5 mg tablet RxNorm: 687570 1 Tablet(s) PO daily 201312/24/2013 Inactive Mobic 15 mg tablet RxNorm: 740024 1 Tablet(s) PO daily 201302/26/2014 Inactive Voltaren 1 % topical gel RxNorm: 208353 1 Application TOP QID 10/30/2013 11/23/2014 Inactive ketorolac 60 mg/2 mL intramuscular solution RxNorm: 258167 2 Milliliter(s) IM 10/30/2013 10/30/2013 Inactive nystatin 100,000 unit/gram topical powder RxNorm: 507998 1 Application TOP BID 10/30/2013 11/12/2013 Inactive Flagyl 500 mg tablet RxNorm: 766003 1 Tablet(s) PO TID 201311/08/2013 Inactive promethazine 25 mg/mL injection solution RxNorm: 551350 1 Milliliter(s) Inj 10/30/2013 10/30/2013 Inactive Diflucan 150 mg tablet RxNorm: 170276 1 Tablet(s) PO daily 10/10/2013 Inactive Diflucan 150 mg tablet RxNorm: 351866 1 Tablet(s) PO daily 10/03/2013 Inactive metformin 500 mg tablet RxNorm: 548252 1/2 Tablet(s) PO QHS 03/201410/30/2013 Inactive nystatin 100,000 unit/gram topical powder RxNorm: 298607 1 Application TOP BID 09/25/2013 10/08/2013 Inactive Bystolic 5 mg tablet RxNorm: 042664 Tablet(s) PO 09/24/2013 09/18/2014 Inactive 2 q am (10mg)1 q piotr (5mg ) Zithromax Z-Rangel 250 mg tablet RxNorm: 772653 Tablet(s) PO UD No Stop Date Active Flexeril 5 mg tablet RxNorm: 350800 1 Tablet(s) PO Q8 PRN TAKE ONE TABLET BY MOUTH EVERY 8 HOURS NEEDED 09/10/2013 No Stop Date Active hydrocodone 10 mg-acetaminophen 325 mg tablet RxNorm: 920218 1 Tablet(s) PO Q4 PRN 09/10/2013 02/05/2014 Inactive Macrobid 100 mg capsule RxNorm: 562895 1 Capsule(s) PO BID 09/19/2013 Inactive zolpidem 5 mg tablet RxNorm: 141305 1 Tablet(s) PO HS PRN 08/2411/21/2013 Inactive simvastatin 20 mg tablet RxNorm: 709998 1 Tablet(s) PO QHS TAKE ONE TABLET BY MOUTH AT BEDTIME 08/24/2013 08/18/2014 Inactive Requip 0.5 mg tablet RxNorm: 092026 1/2 Tablet(s) PO daily 1/2 tab PO qhs x 1 week , then increase to full tablet PO qhs 08/23/2013 08/22/2013 Inactive iron 325 mg (65 mg iron) tablet RxNorm: 572483 1 Tablet(s) PO Tue Frid take with orange juice 08/23/2013 01/19/2014 Inactive iron 325 mg (65 mg iron) tablet RxNorm: 106519 1 Tablet(s) PO Mon Wed Frid take with orange juice 08/23/2013 08/22/2013 Inactive Requip 0.5 mg tablet RxNorm: 015995 1/2 Tablet(s) PO daily 1/2 tab PO qhs x 1 week , then increase to full tablet PO qhs 08/23/2013 10/21/2013 Inactive hydrochlorothiazide 25 mg tablet RxNorm: 372424 1 Tablet(s) PO daily 08/02/2013 04/28/2014 Inactive Kenalog 40 mg/mL Susp for Injection RxNorm: 8413687 2 Milliliter(s) Inj 07/06/2013 07/06/2013 Inactive Zithromax Z-Rangel 250 mg tablet RxNorm: 383716 Tablet(s) PO UD No Stop Date Active zolpidem 5 mg tablet RxNorm: 848280 1 Tablet(s) PO HS PRN 05/3108/23/2013 Inactive simvastatin 20 mg tablet RxNorm: 493488 Tablet(s) PO TAKE ONE TABLET BY MOUTH AT BEDTIME 05/17/2013 08/23/2013 Inactive zolpidem 5 mg tablet RxNorm: 580044 1 Tablet(s) PO HS PRN 05/1705/30/2013 Inactive hydrocodone 10 mg-acetaminophen 325 mg tablet RxNorm: 1417600 1 Tablet(s) PO Q4 PRN 05/17/2013 08/14/2013 Inactive zolpidem 5 mg tablet RxNorm: 028802 1 Tablet(s) PO HS PRN 04/0405/03/2013 Inactive hydrocodone 10 mg-acetaminophen 325 mg tablet RxNorm: 9649361 1 Tablet(s) PO Q4 PRN 04/04/2013 05/16/2013 Inactive Voltaren 1 % topical gel RxNorm: 102172 1 Application TOP QID 04/04/2013 10/29/2013 Inactive gabapentin 100 mg capsule RxNorm: 755616 Capsule(s) PO TAKE ONE CAPSULE BY MOUTH TWICE A DAY 03/05/2013 07/21/2014 Inactive zolpidem 5 mg tablet RxNorm: 883584 1 Tablet(s) PO HS PRN 02/0804/03/2013 Inactive Flexeril 5 mg tablet RxNorm: 745753 1 Tablet(s) PO Q8 PRN TAKE ONE TABLET BY MOUTH EVERY 8 HOURS NEEDED 02/07/2013 09/10/2013 Inactive hydrocodone 10 mg-acetaminophen 325 mg tablet RxNorm: 6780287 1 Tablet(s) PO Q4 PRN 02/07/2013 04/03/2013 Inactive Celebrex 200 mg capsule RxNorm: 940274 1 Capsule(s) PO BID TAKE ONE CAPSULE BY MOUTH TWICE A DAY 02/07/2013 10/30/2013 Inactive zolpidem 5 mg tablet RxNorm: 286886 1 Tablet(s) PO HS PRN 01/1102/07/2013 Inactive Flexeril 5 mg tablet RxNorm: 336669 Tablet(s) PO TAKE ONE TABLET BY MOUTH EVERY 8 HOURS NEEDED 01/04/2013 02/06/2013 Inactive hydrocodone 10 mg-acetaminophen 325 mg tablet RxNorm: 7783220 1 Tablet(s) PO Q4 PRN 01/04/2013 02/06/2013 Inactive Flexeril 5 mg tablet RxNorm: 941194 1 Tablet(s) PO Q8 PRN 01/04 No Stop Date Active Nasonex 50 mcg/actuation Lamy RxNorm: 054261 2 Lamy NASAL 2 sprays each nare once daily 01/04/2013 10/29/2013 Inactive Klor-Con 10 mEq tablet,extended release RxNorm: 713845 Tablet(s) PO TAKE 4 TABLETS ONCE DAILY 12/18/2012 11/04/2013 Inactive simvastatin 20 mg tablet RxNorm: 158755 Tablet(s) PO TAKE ONE TABLET BY MOUTH AT BEDTIME 12/06/2012 05/16/2013 Inactive gabapentin 100 mg capsule RxNorm: 391299 1 Capsule(s) PO BID 03/03/2013 Inactive gabapentin 100 mg capsule RxNorm: 268409 1 Capsule(s) PO BID 12/03/2012 Inactive amoxicillin 500 mg tablet RxNorm: 327668 1 Tablet(s) PO TID 12/03/2012 Inactive amoxicillin 500 mg tablet RxNorm: 534492 1 Tablet(s) PO TID 12/08/2012 Inactive zolpidem 5 mg tablet RxNorm: 345098 1 Tablet(s) PO HS PRN 11/0801/06/2013 Inactive hydrocodone 10 mg-acetaminophen 325 mg tablet RxNorm: 7091135 1 Tablet(s) PO Q4 PRN 11/08/2012 01/03/2013 Inactive Celebrex 200 mg capsule RxNorm: 530623 Capsule(s) PO TAKE ONE CAPSULE BY MOUTH TWICE A DAY 11/08/2012 02/06/2013 Inactive gabapentin 100 mg capsule RxNorm: 408460 1 Capsule(s) PO BID 11/06/2012 Inactive gabapentin 100 mg capsule RxNorm: 099431 1 Capsule(s) PO BID 12/03/2012 Inactive Bystolic 5 mg tablet RxNorm: 676403 Tablet(s) PO 07/19/2012 07/18/2012 Inactive 2 q am (10mg)1 q piotr (5mg ) Bystolic 5 mg tablet RxNorm: 101272 Tablet(s) PO 07/19/2012 07/13/2013 Inactive 2 q am (10mg)1 q piotr (5mg ) hydrocodone-acetaminophen 10 mg-325 mg tablet RxNorm: 6517717 1 Tablet(s) PO Q4 PRN 07/12/2012 10/09/2012 Inactive hydrochlorothiazide 25 mg tablet RxNorm: 428584 1 Tablet(s) PO daily 07/12/2012 07/06/2013 Inactive Bystolic 10 mg tablet RxNorm: 650133 1 Tablet(s) PO daily 201107/18/2012 Inactive Lasix 20 mg tablet RxNorm: 469352 1 Tablet(s) PO PRN Take an extra potassium when taking lasix 07/12/2012 05/19/2016 Inactive Influenza Virus Vaccine 0.5 mL RxNorm: IM 06/28/2012 06/28/2012 Inactive Pneumovax 23 25 mcg/0.5 mL Injection RxNorm: 071617 Milliliter(s) Inj 06/28/2012 06/28/2012 Inactive Lasix 20 mg tablet RxNorm: 134017 1 Tablet(s) PO PRN Take an extra potassium when taking lasix 06/28/2012 07/11/2012 Inactive Flexeril 5 mg tablet RxNorm: 930231 1 Tablet(s) PO Q8 PRN 06/2009/17/2012 Inactive Flexeril 5 mg tablet RxNorm: 706084 1 Tablet(s) PO Q8 PRN 06/1506/19/2012 Inactive hydrochlorothiazide 25 mg tablet RxNorm: 516832 1 Tablet(s) PO daily 06/08/2012 07/07/2012 Inactive hydrocodone-acetaminophen 5 mg-500 mg capsule RxNorm: 764831 1 Capsule(s) PO Q6 PRN 06/08/2012 06/27/2012 Inactive hydrochlorothiazide 25 mg tablet RxNorm: 565841 1 Tablet(s) PO daily 06/08/2012 06/07/2012 Inactive Bystolic 10 mg tablet RxNorm: 285148 1 Tablet(s) PO daily 201107/11/2012 Inactive Lasix 20 mg tablet RxNorm: 851050 1 Tablet(s) PO PRN Take 1 tab daily x 5 days then daily PRN swelling. Take an extra potassium when taking potassium 05/10/2012 06/27/2012 Inactive hydrocodone-acetaminophen 5 mg-500 mg capsule RxNorm: 831860 1 Capsule(s) PO Q6 PRN 05/09/2012 06/07/2012 Inactive Flexeril 5 mg tablet RxNorm: 306157 1 Tablet(s) PO Q8 PRN 04/0706/14/2012 Inactive hydrocodone-acetaminophen 5 mg-500 mg capsule RxNorm: 394676 1 Capsule(s) PO Q6 PRN 03/30/2012 05/08/2012 Inactive Voltaren 1 % Topical Gel RxNorm: 267813 1 Application TOP QID 03/23/2012 09/18/2012 Inactive Voltaren 1 % Topical Gel RxNorm: 692723 1 Application TOP QID 03/23/2012 03/22/2012 Inactive Celebrex 200 mg capsule RxNorm: 408383 1 Capsule(s) PO BID 12/201111/07/2012 Inactive hydrocodone-acetaminophen 5 mg-500 mg Cap RxNorm: 598347 1 Capsule(s) PO Q6 PRN 02/15/2012 03/29/2012 Inactive hydrochlorothiazide 25 mg Tab RxNorm: 697649 1 Tablet(s) PO daily 02/02/2012 05/24/2012 Inactive Flagyl 500 mg Tab RxNorm: 873649 1 Tablet(s) PO TID 201102/01/2012 Inactive Flagyl 500 mg Tab RxNorm: 211174 1 Tablet(s) PO TID 201105/24/2012 Inactive hydrochlorothiazide 25 mg Tab RxNorm: 322068 1 Tablet(s) PO daily 02/02/2012 02/01/2012 Inactive Diflucan 150 mg Tab RxNorm: 274838 1 Tablet(s) PO daily 201105/24/2012 Inactive simvastatin 20 mg tablet RxNorm: 061736 1 Tablet(s) PO QHS 12/201112/05/2012 Inactive hydrocodone-acetaminophen 5 mg-500 mg Cap RxNorm: 312652 1 Capsule(s) PO Q6 PRN 01/20/2012 02/15/2012 Inactive Flagyl 500 mg Tab RxNorm: 239064 1 Tablet(s) PO TID 201101/04/2012 Inactive Macrobid 100 mg capsule RxNorm: 766383 1 Capsule(s) PO BID 07/201201/07/2012 Inactive lactobacillus acidophilus Chewable Tab RxNorm: 1 Tablet(s) PO BID 12/29/2011 05/24/2012 Inactive hydrocodone-acetaminophen 5 mg-500 mg Cap RxNorm: 414637 1 Capsule(s) PO Q6 PRN 12/27/2011 01/19/2012 Inactive hydrocodone-acetaminophen 5 mg-500 mg Cap RxNorm: 262228 1 Capsule(s) PO Q6 PRN 12/07/2011 12/26/2011 Inactive hydrochlorothiazide 50 mg Tab RxNorm: 531466 1 Tablet(s) PO daily 11/11/2011 05/24/2012 Inactive hydrocodone-acetaminophen 5 mg-500 mg Cap RxNorm: 490443 1 Capsule(s) PO Q6 PRN 10/27/2011 12/06/2011 Inactive Klor-Con 10 mEq tablet,extended release RxNorm: 915726 4 Tablet(s) PO daily 09/28/2011 06/23/2012 Inactive ketorolac 60 mg/2 mL IM RxNorm: 773417 2 Milliliter(s) IM 08/3108/31/2011 Inactive Klor-Con 10 10 mEq Tab RxNorm: 787332 4 Tablet(s) PO daily 04/201109/27/2011 Inactive Kenalog 40 mg/mL Susp for Injection RxNorm: 8988919 1.5 Milliliter(s) Inj 08/18/2011 08/18/2011 Inactive prednisone 10 mg Tab RxNorm: 977027 Tablet(s) PO 08/17/2011 08/22/2011 Inactive 6-5-4 -3-2-1 Celebrex 200 mg Cap RxNorm: 838764 1 Capsule(s) PO BID 201002/20/2012 Inactive simvastatin 20 mg Tab RxNorm: 926815 1 Tablet(s) PO 07/22/2011 01/20/2012 Inactive Rocephin 500 mg Solution for Injection RxNorm: 609004 1 Milliliter(s) Inj as doctor directed 05/21/2011 05/21/2011 Inactive Advair Diskus 250 mcg-50 mcg/dose powder for inhalation RxNorm: 9726633 2 Puff(s) INH BID No Start Date Active Vitamin D-3 Oral RxNorm: Oral No Start Date Active Diflucan 150 mg tablet RxNorm: 815208 1 Tablet(s) PO every other day No Start Date 01/06/2014 Inactive Klor-Con 10 10 mEq Tab RxNorm: 651027 1 Tablet(s) PO daily No Start Date 08/25/2011 Inactive nystatin-triamcinolone 100,000 unit/g-0.1 % Topical Cream RxNorm: 9132533 1 Application TOP TID No Start Date 2012 Inactive Bystolic 10 mg tablet RxNorm: 110361 1 Tablet(s) PO daily No Start Date 2012 Inactive Nasonex 50 mcg/actuation Lamy RxNorm: 410746 2 Lamy NASAL 2 sprays each nare once daily No Start Date 01/03/2013 Inactive naproxen 500 mg Tab RxNorm: 244046 1 Tablet(s) PO BID No Start Date 12/28/2011 Inactive mupirocin 2 % topical ointment RxNorm: 891942 1 Application TOP BID No Start Date 09/15/2017 Inactive Lasix 20 mg tablet RxNorm: 333287 1 Tablet(s) PO PRN Take 1 tab daily x 5 days then daily PRN swelling. Take an extra potassium when taking potassium No Start Date 05/09/2012 Inactive Flexeril 5 mg tablet RxNorm: 361292 1 Tablet(s) PO Q8 PRN No Start Date 04/06/2012 Inactive hydrocodone-acetaminophen 5 mg-500 mg Cap RxNorm: 329690 1 Capsule(s) PO Q6 PRN No Start Date 10/26/2011 Inactive Phenergan-Codeine 6.25 mg-10 mg/5 mL syrup RxNorm: 601305 5 Milliliter(s) PO Q6 as needed cough No Start Date 07/19/2017 Inactive diclofenac sodium 75 mg tablet,delayed release RxNorm: 197342 2 Tablet(s) PO BID No Start Date 03/24/2016 Inactive Zithromax Z-Rangel 250 mg tablet RxNorm: 231461 Tablet(s) PO UD No Start Date 03/22/2012 Inactive orphenadrine citrate ER 100 mg Tab RxNorm: 183299 1 Tablet(s) PO BID No Start Date 05/19/2016 Inactive scopolamine 1.5 mg transdermal patch (1 mg over 3 days) RxNorm: 874660 2 Patch TD q 3 days No Start Date 07/08/2016 Inactive Fish Oil 1,000 mg Cap RxNorm: 3 Capsule(s) PO daily No Start Date 04/29/2013 Inactive Macrodantin 50 mg Cap RxNorm: 829758 1 Capsule(s) PO daily No Start Date 10/07/2014 Inactive hydrochlorothiazide 50 mg Tab RxNorm: 443172 1 Tablet(s) PO daily No Start Date 11/10/2011 Inactive Medication Administered Medication Codes Instructions Start Date Status ceftriaxone 500 mg solution for injection RxNorm: 3489775 1Gram 09/14/2017 No longer Active ceftriaxone 500 mg solution for injection RxNorm: 1259692 08/09/2017 No longer Active ceftriaxone 500 mg solution for injection RxNorm: 6979949 1Milliliter 08/08/2017 No longer Active Kenalog 40 mg/mL suspension for injection RxNorm: 5116582 Milliliter 09/27/2016 No longer Active promethazine 25 mg/mL injection solution RxNorm: 469714 1Milliliter 10/30/2013 No longer Active ketorolac 60 mg/2 mL intramuscular solution RxNorm: 843987 2Milliliter 10/30/2013 No longer Active Kenalog 40 mg/mL Susp for Injection RxNorm: 1948022 2Milliliter 07/06/2013 No longer Active Influenza Virus Vaccine 0.5 mL RxNorm: 06/28/2012 No longer Active Pneumovax 23 25 mcg/0.5 mL Injection RxNorm: 374561 Milliliter 06/28/2012 No longer Active ketorolac 60 mg/2 mL IM RxNorm: 256180 2Milliliter 08/31/2011 No longer Active Kenalog 40 mg/mL Susp for Injection RxNorm: 7994339 1.5Milliliter 08/18/2011 No longer Active Rocephin 500 mg Solution for Injection RxNorm: 243970 1Milliliteras doctor directed 05/21/2011 No longer Active [...] NO Growth Day 2 06/23/2017 Culture Urine [id number] URINE CULTURE SEE NOTES 06/13/2017 Culture Urine [id number] Continued Results 06/13/2017 Urine Culture Ucult Complete >100,000 col/ml aerobic growth sent to ref lab 06/11/2017 B12 Vdm045 B12 341.00 pg/ml 06/10/2017 Tsh Ord6 hTSH II 0.88 uIU/mL 06/10/2017 Comp Metabolic Baj049 NA 138 mEq/L 06/10/2017 Comp Metabolic Rfz784 K 4.4 mEq/L 06/10/2017 Comp Metabolic Kob739 CL 104 mEq/L 06/10/2017 Comp Metabolic Lna870 CO2 27.0 mEq/L 06/10/2017 Comp Metabolic Ucr549 ANION GAP 11 06/10/2017 Comp Metabolic Yig252 GLUCOSE 86 mg/dL 06/10/2017 Comp Metabolic Qsw712 Creat 1.2 mg/dL 06/10/2017 Comp Metabolic Udf024 eGFR 49 ml/min/1.73m2 06/10/2017 Comp Metabolic Vkj977 BUN 26 mg/dL 06/10/2017 Comp Metabolic Jzp643 B/C Ratio 22.2 Ratio 06/10/2017 Comp Metabolic Jyx730 CALCIUM 9.4 mg/dL 06/10/2017 Comp Metabolic Qat571 ALK PHOS 48 U/L 06/10/2017 Comp Metabolic Ofq451 AST(SGOT) 28 U/L 06/10/2017 Comp Metabolic Gmi530 ALT(SGPT) 29 U/L 06/10/2017 Comp Metabolic Oky193 BILI T 0.5 mg/dL 06/10/2017 Comp Metabolic Qwe249 ALBUMIN 4.1 g/dL 06/10/2017 Comp Metabolic Smb311 TPRO 6.3 g/dL 06/10/2017 Comp Metabolic Isp051 GLOB 2.2 g/dL 06/10/2017 Comp Metabolic Uju354 A/G Ratio 1.9 Ratio 06/10/2017 Comp Metabolic Ocv268 Osmo 280 mOsmo 06/10/2017 Cbc With Differential [...] 28.4 % 06/10/2017 Cbc With Differential Ord2 [place]% 10.7 % 06/10/2017 Cbc With Differential Ord2 [...] 1.48 K/ul 06/10/2017 Cbc With Differential Ord2 [place] ABS# 0.6 K/ul 06/10/2017 Cbc With Differential Ord2 Eos ABS# 0.2 K/ul 06/10/2017 Cbc With Differential Ord2 Baso ABS# 0.0 K/ul 06/10/2017 Total T3 Ord42 TT3 0.70 ng/ml 06/10/2017 Comp Metabolic Jcs043 NA 139 mEq/L 08/20/2015 Comp Metabolic Ovm677 K 4.4 mEq/L 08/20/2015 Comp Metabolic Wja115 CL 104 mEq/L 08/20/2015 Comp Metabolic Bdm716 CO2 26.0 mEq/L 08/20/2015 Comp Metabolic Ovw959 ANION GAP 13 08/20/2015 Comp Metabolic Cpt842 GLUCOSE 78 mg/dL 08/20/2015 Comp Metabolic Gms976 Creat 0.8 mg/dL 08/20/2015 Comp Metabolic Iqw692 eGFR 79 ml/min/1.73m2 08/20/2015 Comp Metabolic Iaj776 BUN 21 mg/dL 08/20/2015 Comp Metabolic Ayf778 B/C Ratio 27.3 Ratio 08/20/2015 Comp Metabolic Onx494 CALCIUM 9.5 mg/dL 08/20/2015 Comp Metabolic Bjl273 ALK PHOS 64 U/L 08/20/2015 Comp Metabolic Prp875 AST(SGOT) 20 U/L 08/20/2015 Comp Metabolic Mui739 ALT(SGPT) 16 U/L 08/20/2015 Comp Metabolic Asm450 BILI T 0.5 mg/dL 08/20/2015 Comp Metabolic Euh818 ALBUMIN 4.2 g/dL 08/20/2015 Comp Metabolic Jzq934 TPRO 7.0 g/dL 08/20/2015 Comp Metabolic Nif613 GLOB 2.8 g/dL 08/20/2015 Comp Metabolic Yaz129 A/G Ratio 1.5 Ratio 08/20/2015 Comp Metabolic Bev256 Osmo 279 mOsmo 08/20/2015 Cbc With Differential [...] Metabolic Ord15 CALCIUM 9.2 mg/dL 04/15/2015 %SAT/TIBC 0620937 TIBC 360 UG/DL 08/22/2013 %SAT/TIBC 3241279 % SATURAT 22 % 08/22/2013 %SAT/TIBC 8400574 UIBC 282 MCG/DL 08/22/2013 IRON TEST [id number] IRON TEST 78 UG/DL 08/22/2013 VIT D TOTL 1603034 VIT D TOTL 74 NG/ML 08/22/2013 CANCEL 5889055 CANCEL FOOTNOTE 08/22/2013 A1C HPLC 1901447 A1C HPLC 10287-2 5.8 % 08/21/2013 CHEM 14 0542739 AST 25 U/L 08/20/2013 CHEM 14 6068112 ALT 32 IU/L 08/20/2013 CHEM 14 5345401 BUN 21 MG/DL 08/20/2013 CHEM 14 4962460 ALBUMIN 4.4 GM/DL 08/20/2013 CHEM 14 5451992 CHLORIDE 105 MMOL/L 08/20/2013 CHEM 14 6885276 BILI TOT 0.5 MG/DL 08/20/2013 CHEM 14 3904875 ALK PHOS 50 U/L 08/20/2013 CHEM 14 2334915 SODIUM 139 MMOL/L 08/20/2013 CHEM 14 5598925 CREATININE 0.76 MG/DL 08/20/2013 CHEM 14 1903202 CALCIUM 9.7 MG/DL 08/20/2013 CHEM 14 9264051 POTASSIUM 3.9 MMOL/L 08/20/2013 CHEM 14 3355531 PROT TOT 7.0 GM/DL 08/20/2013 CHEM 14 1911441 GLUCOSE 135 MG/DL 08/20/2013 CHEM 14 7306109 BICARB 27 MMOL/L 08/20/2013 CHEM 14 9973655 ANION GAP 7 MEQ/L 08/20/2013 CBC 0337883 WBC 6.6 10e9/L 08/20/2013 CBC 9430065 RBC 4.28 10e12/L 08/20/2013 CBC 8360876 HGB 14.1 g/dL 08/20/2013 CBC 9941980 HCT DET 42.7 % 08/20/2013 CBC 2647130 MCV 99.8 fL 08/20/2013 CBC 9368116 MCH 32.9 pg 08/20/2013 CBC 6969713 MCHC 33.0 g/dL 08/20/2013 CBC 9452440 PLT 289 10e9/L 08/20/2013 CBC 2469713 MPV 9.8 fL 08/20/2013 CBC 2918901 AZAEL % 70.3 % 08/20/2013 CBC 2514828 LY % 21.2 % 08/20/2013 CBC 2793326 MON % 7.4 % 08/20/2013 CBC 5065603 EOS % 0.9 % 08/20/2013 CBC 4760535 BASO % 0.2 % 08/20/2013 CBC 3260593 RDW 13.5 % 08/20/2013 CBC 9067529 ABS AZAEL 4.64 10e9/L 08/20/2013 CBC 3028535 ABS LYMPH 1.40 10e9/L 08/20/2013 CBC 5705454 ABS MONO 0.49 10e9/L 08/20/2013 CBC 0934639 ABS EOS 0.06 10e9/L 08/20/2013 CBC 1136865 ABS BASO 0.01 10e9/L 08/20/2013 CBC 5916297 RDW-SD 48.4 fL 08/20/2013 GFR CALC 6884621 GFR AA >60 ML/MIN 08/20/2013 GFR CALC 0176947 GFR NON-AA >60 ML/MIN 08/20/2013 TSH 3656232 TSH 0.610 uIU/ML 08/20/2013 MAGNESIUM 7705333 MAGNESIUM 1.7 MEQ/L 08/20/2013 URINALYSIS NONAUTO W/O SCOPE 84062 Specific [place] 1.015 DateTime(Free Text in Aprima) URINALYSIS NONAUTO W/O SCOPE 64204 PH 6.0 DateTime(Free Text in Aprima) URINALYSIS NONAUTO W/O SCOPE 33711 GLUCOSE NEG DateTime( Free Text in Aprima) URINALYSIS NONAUTO W/O SCOPE 43269 Protein NEG DateTime( Free Text in Aprima) URINALYSIS NONAUTO W/O SCOPE 83104 Blood NEG DateTime(Free Text in Aprima) URINALYSIS NONAUTO W/O SCOPE 27077 Bilirubin NEG DateTime(Free Text in Aprima) URINALYSIS NONAUTO W/O SCOPE 61375 Ketones NEG DateTime( Free Text in Aprima) URINALYSIS NONAUTO W/O SCOPE 85907 Urobilinogen NEG DateTime(Free Text in Aprima) URINALYSIS NONAUTO W/O SCOPE 04799 Nitrite POSITIVE DateTime(Free Text in Aprima) URINALYSIS NONAUTO W/O SCOPE 93688 Leukocytes NEG DateTime(Free Text in Aprima) Review [...] 1995 Ears/Nose/Throat oral cavity/pharynx/larynx Overall: no masses 07/22/2014 [...] developed 08/20/2013 None Full Exam - General 1995 [...] masses 10/26/2012 None Full Exam - General 1995 Respiratory auscultation Overall: breath sounds clear bilaterally 10/26/2012 None Full Exam - General 1995 Cardiovascular extremities Overall: no clubbing 10/26/2012 None Full Exam - General 1995 Cardiovascular auscultation of heart Rate: regular rate 10/26/2012 None Full Exam - General 1995 Cardiovascular auscultation of heart Rhythm: regular rhythm 10/26/2012 None Full Exam - General 1995 Lymphatic neck nodes Overall: anterior cervical chain benign 10/26/2012 None Full Exam - General 1994 Lymphatic neck nodes Overall: posterior cervical chain benign 10/26/2012 None Full Exam - General 1995 Psychiatric orientation/consciousness Overall: oriented to person, place and time 10/26/2012 None Full Exam - General 1995 Integument inspection of skin Hair: alopecia 10/26/2012 [...] Procedure Codes Date THER/PROPH/DIAG INJ SC/IM CPT-4: 03060 09/14/2017 ROCEPHIN, PER 250 MG CPT-4: J0696 09/14/2017 THER/PROPH/DIAG INJ SC/IM CPT-4: 80976 08/09/2017 ROCEPHIN, PER 250 MG CPT-4: J0696 08/09/2017 ROCEPHIN, PER 250 MG CPT-4: J0696 08/08/2017 URINALYSIS NONAUTO W/O SCOPE CPT-4: 44513 06/21/2017 URINALYSIS NONAUTO W/O SCOPE CPT-4: 15931 06/10/2017 PPPS, SUBSEQ VISIT CPT -4: G0439 12/17/2016 THER/PROPH/DIAG INJ SC/IM CPT-4: 97472 09/27/2016 TRIAMCINOLONE ACET INJ NOS CPT-4: J3301 09/27/2016 ADMIN INFLUENZA VIRUS VAC CPT-4: G0008 06/21/2016 FLU VACC 4 EMMA 3 YRS PLUS IM Formatting Model/CDA Sections, Assigned to/Kiki Redding SNOMED CT: [id number] CPT-4: 18680Evumwnc 06/21/2016 PNEUMOCOCCAL VACC 13 EMMA IM Formatting Model/CDA Sections, Assigned to/Kiki Redding SNOMED CT: 60598536 CPT-4: 39722Utouthh 07/21/2015 IMMUNIZATION ADMIN CPT -4: 31131 07/21/2015 THER/PROPH/DIAG INJ SC/IM CPT-4: 07737 09/05/2014 TENIVAC TD VACCINE NO PRSRV 7/> IM Assigned to CPT-4: 84959Nxdpfae 09/05/2014 ADMIN INFLUENZA VIRUS VAC CPT-4: G0008 06/14/2014 FLU VAC NO PRSV 4 EMMA 3 YRS+ Assigned to/Kiki Redding CPT-4: 44257Dgxycua 06/14/2014 79800 EST. PATIENT, LEVEL IV CPT-4: 06940 01/11/2014 URINALYSIS NONAUTO W/O SCOPE CPT-4: 24838 01/11/2014 KETOROLAC TROMETHAMINE INJ CPT-4: J1885 10/30/2013 PROMETHAZINE HCL INJECTION CPT-4: J2550 10/30/2013 ROUTINE VENIPUNCTURE CPT-4: 45487 08/20/2013 INJ TRIGGER POINT 1/2 MUSCL CPT-4: 88855 07/06/2013 IMMUNIZATION ADMIN CPT -4: 12292 06/28/2012 Influenza Virus Vaccine, Split Virus, >3 Yrs, IM CPT-4: 34619 06/28/2012 Pneumococcal Polysaccharide Vaccine, 23-Valent, Ad CPT-4: 14630 06/28/2012 URINALYSIS NONAUTO W/O SCOPE CPT-4: 92841 12/29/2011 KETOROLAC TROMETHAMINE INJ CPT-4: J1885 08/31/2011 THER/PROPH/DIAG INJ SC/IM CPT-4: 30015 08/31/2011 TRIAMCINOLONE ACET INJ NOS CPT-4: J3301 08/17/2011 THER/PROPH/DIAG INJ SC/IM CPT-4: 79404 08/17/2011 URINALYSIS NONAUTO W/O SCOPE CPT-4: 16659 08/17/2011 ROCEPHIN, PER 250 MG CPT-4: J0696 05/21/2011 THER/PROPH/DIAG INJ SC/IM CPT-4: 42188 05/21/2011 Vital Signs Date Vital 09/14/2017 Blood Pressure 1: 126/74 Code : 8480-6 Heart Rate 1: 95 bpm Height: SpO2: 95% Weight: 08/09/2017 Height: Weight: 08/08/2017 Blood Pressure 1: 126/86 Code : 8480-6 BMI: 28.3 Code : 55958-9 Heart Rate 1 : 83 bpm Height: 5'5" SpO2: 98% Weight: 170 lbs 06/10/2017 Blood Pressure 1: 110/72 Code : 8480-6 BMI: 29.1 Code : 87316-8 Heart Rate 1 : 84 bpm Height: 5'5" SpO2: 97% Weight: 175 lbs 03/04/2017 Blood Pressure 1: 102/66 Code : 8480-6 BMI: 28.4 Code : 52054-0 Heart Rate 1 : 91 bpm Height: 5'5" SpO2: 93% Weight: 170 lbs 8 oz 12/17/2016 Blood Pressure 1: 138/76 Code : 8480-6 BMI: 28.8 Code : 83535-8 Heart Rate 1 : 86 bpm Height: [...] Code : 8480-6 BMI: 28.3 Code : 14039-0 Heart Rate 1 : 83 bpm Height: 5'5" SpO2: 94% Weight: 170 lbs 06/21/2016 Blood Pressure 1: 120/80 Code : 8480-6 BMI: 29.3 Code : 21669-0 Heart Rate 1 : 76 bpm Height: 5'6" SpO2: 90% Weight: 179 lbs 05/20/2016 Blood Pressure 1: 130/70 Code : 8480-6 BMI: 29.7 Code : 98884-5 Heart Rate 1 : 79 bpm Height: 5'6" SpO2: 96% Weight: 181 lbs 01/26/2016 Blood Pressure 1: 138/80 Code : 8480-6 BMI: 29.7 Code : 10233-3 Heart Rate 1 : 75 bpm Height: 5'6" SpO2: 95% Weight: 181 lbs 11/12/2015 Blood Pressure 1: 132/62 Code : 8480-6 BMI: 29.2 Code : 45812-1 Heart Rate 1 : 73 bpm Height: 5'6" SpO2: 95% Weight: 178 lbs 09/29/2015 Blood Pressure 1: 140/76 Code : 8480-6 BMI: 29.3 Code : 48879-6 Heart Rate 1 : 69 bpm Height: 5'6" SpO2: 97% Weight: 179 lbs 08/22/2015 Blood Pressure 1: 158/78 Code : 8480-6 Blood Pressure 1: 142/88 Code: 8480-6 BMI: 30.0 Code: 67128-5 Heart Rate 1: 98 bpm Height: 5'6" SpO2: 99% Temperature : 83.9 (C) / 183.0 (F) Weight: 183 lbs 07/21/2015 Blood Pressure 1: 130/90 Code : 8480-6 Blood Pressure 1: 130/88 Code: 8480-6 BMI: 29.8 Code: 01695-5 Heart Rate 1: 64 bpm Height: 5'6" SpO2: 96% Weight: 182 lbs 05/20/2015 Blood Pressure 1: 130/68 Code : 8480-6 Heart Rate 1: 93 bpm Height: 5'6" SpO2: 96% Weight: 01/24/2015 Blood Pressure 1: 128/74 Code : 8480-6 BMI: 29.2 Code : 60795-5 Heart Rate 1 : 88 bpm Height: 5'6" Weight: 178 lbs 12/23/2014 Blood Pressure 1: 102/62 Code : 8480-6 Heart Rate 1: 88 bpm Height: SpO2: 98% Weight: 10/08/2014 Blood Pressure 1: 118/78 Code : 8480-6 BMI: 30.0 Code : 24579-8 Heart Rate 1 : 78 bpm Height: [...] Code : 8480-6 BMI: 30.2 Code : 96655-2 Heart Rate 1 : 84 bpm Height: 5'6" Weight: 184 lbs 08/20/2013 Blood Pressure 1: 132/70 Code : 8480-6 Weight: 07/06/2013 Blood Pressure 1: 126/80 Code : 8480-6 Heart Rate 1: 68 bpm Weight: 04/30/2013 Blood Pressure 1: 122/70 Code : 8480-6 BMI: 30.4 Code : 14183-7 Heart Rate 1 : 64 bpm Height: [...] Code : 8480-6 BMI: 30.5 Code : 79022-7 Heart Rate 1 : 97 bpm Height: 5'5" Weight: 183 lbs 05/21/2011 Blood Pressure 1: 128/78 Code : 8480-6 BMI: 28.4 Code : 51269-9 Heart Rate 1 : 76 bpm Height: [...] well woman exam (65+ years) Lifestyle satisfactory 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 PATIENT, LEVEL III Diagnosis: Cellulitis of left finger[ICD10: L03.012] Chela Crisostomo MD, [facility] CPT-4: 76358 08/08/2017 [id number]) [id number] EST. PATIENT, LEVEL IV Diagnosis: Essential (primary) hypertension[ICD10: I10] Diagnosis: Dysuria[ICD10: R30.0] Diagnosis: Rash and other nonspecific skin eruption[ICD10: R21] Diagnosis: Other insomnia[ICD10: G47.09] Diagnosis: Other fatigue[ICD10: R53.83] Diagnosis: Vitamin B12 deficiency anemia, unspecified[ICD10: D51.9] Chela Crisostomo MD , [facility] CPT-4: 63600 06/10/2017 ([id number]) [id number] EST. PATIENT, LEVEL III Diagnosis: Rash and other nonspecific skin eruption[ICD10: R21] Chela Crisostomo MD, [facility] CPT-4: 45552 03/04/2017 ([id number]) [id number] EST. PATIENT, LEVEL III Diagnosis: Cough[ICD10: R05] Diagnosis: Pneumonia, unspecified organism[ICD10: J18.9] Diagnosis: Pain in left shoulder[ICD10: M25.512] Chela Crisostomo MD, [facility] CPT-4: 77818 11/25/2016 ([id number]) 24753 EST. PATIENT, LEVEL III Diagnosis: Pain in left shoulder[ICD10: M25.512] Diagnosis: Pneumonia, unspecified organism[ICD10: J18.9] Chela Crisostomo MD, [facility] CPT-4: 12009 11/18/2016 ([id number]) 76759 EST. PATIENT, LEVEL IV Diagnosis: Cough[ICD10: R05] Diagnosis: Pneumonia, unspecified organism[ICD10: J18.9] Diagnosis: Hypoxemia[ICD10: R09.02] Chela Crisostomo MD, [facility] CPT-4: 64530 11/11/2016 ([id number]) 79405 EST. PATIENT, LEVEL IV Diagnosis: Encounter for gynecological examination (general) (routine) without abnormal findings[ICD10: Z01.419] Chela Crisostomo MD, [facility] CPT-4: 39692 06/21/2016 ([id number]) 56307 EST. PATIENT, LEVEL IV Diagnosis: Pressure ulcer of right buttock, stage 2[ICD10: L89.312] Diagnosis: Essential (primary) hypertension[ICD10: I10] Diagnosis: Myalgia[ICD10: M79.1] Chela Crisostomo MD, [facility] CPT-4: 02753 05/20/2016 ([id number]) 89990 EST. PATIENT, LEVEL III Diagnosis: Essential (primary) hypertension[ICD10: I10] Diagnosis: Unilateral primary osteoarthritis, right knee[ICD10: M17.11] Chela Crisostomo MD, [facility] CPT-4: 38139 01/26/2016 56158 EST. PATIENT, LEVEL IV Diagnosis: Cutaneous abscess of left upper limb[ICD10: L02.414] Annemarie Crisostomo MD, [facility] CPT-4: 85086 11/12/2015 32202 EST. PATIENT, LEVEL IV Diagnosis: Essential (primary) hypertension[ICD10: I10] Diagnosis: Localized edema[ICD10: R60.0] Chela Crisostomo MD, [facility] CPT-4: 43265 09/29/2015 ([id number]) 12974 EST. PATIENT, LEVEL III Diagnosis: Essential (primary) hypertension[ICD10: I10] Diagnosis: Localized edema[ICD10: R60.0] Chela Crisostomo MD, [facility] CPT-4: 03173 08/22/2015 ([id number]) 55329 EST. PATIENT, LEVEL IV Diagnosis: Essential (primary) hypertension[ICD10: I10] Diagnosis: Localized edema[ICD10: R60.0] Diagnosis: Pain in leg, unspecified[ICD10: M79.606] Diagnosis: Primary generalized (osteo)arthritis[ICD10: M15.0] Diagnosis: VACCIN STREP PNEUMONIAE[ICD10: Z23] Chela Crisostomo MD, [facility] CPT-4: 00462 07/21/2015 ([id number]) 34717 EST. PATIENT, LEVEL III Diagnosis: Edema[ICD9: 782.3] Diagnosis: Presence of surgical incision[ICD9: V49.89] Paty Crisostomo MD, [facility] CPT-4: 62496 05/20/2015 ([id number]) 82222 EST. PATIENT, LEVEL III Diagnosis: ESSENTIAL HYPERTENSION[ICD9: 401.9] Diagnosis: Leg pain[ICD9: 729.5] Paty Crisostomo MD, [facility] CPT-4: 44972 01/24/2015 ([id number]) 52938 EST. PATIENT, LEVEL III Diagnosis: ESSENTIAL HYPERTENSION[ICD9: 401.9] Paty Crisostomo MD, [facility] CPT-4: 71515 12/23/2014 ([id number]) 33393 EST. PATIENT, LEVEL III Diagnosis: ESSENTIAL HYPERTENSION[ICD9: 401.9] Diagnosis: Irritable bowel[ICD9: 564.1] Paty Crisostomo MD, [facility] CPT- 4: 71718 10/08/2014 ([id number]) 70590 EST. PATIENT, LEVEL V Diagnosis: ESSENTIAL HYPERTENSION[ICD9: 401.9] Diagnosis: Varicose veins[ICD9: 454.9] Diagnosis: Leg pain[ICD9: 729.5] Diagnosis: Leg cramps[ICD9: 729.82] Diagnosis: Back pain[ICD9: 724.5] Diagnosis: Diarrhea[ICD9: 787.91] Diagnosis: Abdominal pain[ICD9: 789.00] Paty Crisostomo MD, [facility] CPT- 4: 99407 09/24/2014 ([id number]) 43373 EST. PATIENT, LEVEL III Diagnosis: Varicose veins[ICD9: 454.9] Diagnosis: Edema[ICD9: 782.3] Chela Crisostomo MD, [facility] CPT-4: 88833 07/22/2014 ([id number]) 11998 EST. PATIENT, LEVEL IV Diagnosis: Abdominal pain[ICD9: 789.00] Diagnosis: Back pain[ICD9: 724.5] Paty Crisostomo MD, [facility] CPT-4: 87684 01/07/2014 ([id number]) 52975 EST. PATIENT, LEVEL IV Diagnosis: Diarrhea[ICD9: 787.91] Diagnosis: Nausea and vomiting[ICD9: 787.01] Diagnosis: Abdominal pain[ICD9: 789.00] Chela Crisostomo MD, [facility] CPT-4: 86814 10/30/2013 ([id number]) 13429 EST. PATIENT, LEVEL IV Diagnosis: Tinea cruris[ICD9: 110.3] Diagnosis: ESSENTIAL HYPERTENSION[SNOMED: 50911690] Diagnosis: Elevated blood sugar[ICD9: 790.29] Chela Crisostomo MD, [facility] CPT-4: 06122 09/25/2013 ([id number]) 51219 EST. PATIENT, LEVEL IV Diagnosis: Leg cramps[ICD9: 729.82] Diagnosis: ESSENTIAL HYPERTENSION[SNOMED: 21447064] Diagnosis: DEFICIENCY ANEMIA[ICD9: 281.9] Diagnosis: ABN THYROID FUNCT STUDY[ICD9: 794.5] Diagnosis: Abnormal glucose[ICD9: 790.29] Diagnosis: Insomnia[ICD9: 780.52] Diagnosis: Leg pain[ICD9: 729.5] Diagnosis: Fatigue[ICD9: 780.79] Chela Crisostomo MD, [facility] CPT-4: 63779 08/20/2013 50838 EST. PATIENT, LEVEL II Diagnosis: BACKACHE[ICD9: 724.5] Diagnosis: Cervicalgia[ICD9: 723.1] Diagnosis: Spasm of muscle[ICD9: 728.85] Diagnosis: Musculoskeletal disorder and symptoms referable to neck[ICD9: 723.9] Chela Crisostomo MD, [facility] CPT-4: 99335 07/06/2013 77067 EST. PATIENT, LEVEL IV Diagnosis: Health examination of defined subpopulation[ICD9: V70.5] Diagnosis: ESSENTIAL HYPERTENSION[SNOMED: 77256585] Chela Crisostomo MD, [facility] CPT-4: 55059 04/30/2013 ([id number]) 48850 EST. PATIENT, LEVEL III Diagnosis: Diarrhea[ICD9: 787.91] Diagnosis: ALLERGIC RHINITIS[ICD9: 477.9] Paty Crisostomo MD, [facility] CPT- 4: 11186 12/29/2012 ([id number]) 36924 EST. PATIENT, LEVEL III Diagnosis: Unspecified deficiency anemia[ICD9: 281.9] Diagnosis: Abnormal thyroid blood test[ICD9: 794.5] Diagnosis: Abnormal thyroid exam[ICD9: 246.9] Diagnosis: Thinning hair[ICD9: 704.00] Paty Crisostomo MD, [facility] CPT- 4: 42448 10/26/2012 ([id number]) 71787 EST. PATIENT, LEVEL III Diagnosis: ESSENTIAL HYPERTENSION[SNOMED: 76432429] Diagnosis: EDEMA[ICD9: 782.3] Paty Crisostomo MD, [facility] CPT-4: 91749 07/12/2012 ([id number]) 01025 EST. PATIENT, LEVEL IV Diagnosis: ESSENTIAL HYPERTENSION[SNOMED: 31871577] Diagnosis: EDEMA[ICD9: 782.3] Diagnosis: VAC STREP PNEUMONIAE-FLU[ICD9: V06.6] Chela Crisostomo MD, [facility] CPT-4: 93811 06/28/2012 ([id number]) 95495 EST. PATIENT, LEVEL III Diagnosis: ESSENTIAL HYPERTENSION[SNOMED: 84599152] Paty Crisostomo MD, [facility] CPT-4: 82337 05/24/2012 ([id number]) 61677 EST. PATIENT, LEVEL IV Diagnosis: ESSENTIAL HYPERTENSION[SNOMED: 54800593] Diagnosis: EDEMA[ICD9: 782.3] Diagnosis: Bibasilar crackles[ICD9: 786.7] Paty Crisostomo MD, [facility] CPT- 4: 50511 05/09/2012 10919 EST. PATIENT, LEVEL IV Diagnosis: Acute pharyngitis[ICD9: 462] Diagnosis: Diarrhea[ICD9: 787.91] Chela Crisostomo MD, [facility] CPT-4: 89931 01/31/2012 77984 EST. PATIENT, LEVEL IV Diagnosis: Diarrhea[ICD9: 787.91] Diagnosis: Urinary tract infection[ICD9: 599.0] Diagnosis: ESSENTIAL HYPERTENSION[SNOMED: 05652777] Chela Crisostomo MD, [facility] CPT-4: 51061 12/29/2011 73785 EST. PATIENT, LEVEL IV Diagnosis: Abnormal bruising[ICD9: 782.9] Diagnosis: NSAID long-term use[ICD9: V58.64] Diagnosis: ESSENTIAL HYPERTENSION[SNOMED: 81176135] Chela Crisostomo MD, [facility] CPT-4: 81237 12/20/2011 24454 EST. PATIENT, LEVEL III Diagnosis: Hip pain, right[ICD9: 719.45] Diagnosis: Fall on same level from slipping, tripping, or stumbling[ICD9: E885.9 ] Diagnosis: ESSENTIAL HYPERTENSION[SNOMED: 79925298] Chela Crisostomo MD, [facility] CPT-4: 12231 08/31/2011 90217 EST. PATIENT, LEVEL III Diagnosis: Back pain[ICD9: 724.5] Diagnosis: Sciatica[ICD9: 724.3] Chela Crisostomo MD, [facility] CPT-4: 83600 08/17/2011 51862 EST. PATIENT, LEVEL IV Diagnosis: ACUTE PYELONEPHRITIS[ICD9: 590.10] Diagnosis: RENAL & URETERAL DIS NOS[ICD9: 593.9] Diagnosis: LUMBAGO[ICD9: 724.2] Paty Crisostomo MD, [facility] CPT-4: 07690 05/21/2011 Plan of Care Planned Activity Notes [...] acute concerns. 09/14/2017 Appointment: Annemarie Gibson WPtel: [facility] [place] (15 min) Moderate 09/14/2017 Patient Education: Patient [...] warmth, discharge. 08/08/2017 Appointment: Chela Camara WPtel: [phone] [facility] [phone] [place] (10 min) Simple 08/08/2017 Patient Education: [...] any worse 06/10/2017 Appointment: Chela Camara WPtel: [address] [place] [address] (30 min) Complex 06/10/2017 Patient Education: Patient Medication Summary Completed 06/10/2017 Visit Plan: Rraz-wrltses-vcxhzjt today in the office-will start patient on anti viral medication as well as antibiotics and follow up in the office in 10 days, sooner if needed. 03/04/2017 Appointment: Chela Camara WPtel: [address] [place] [address] (15 min) Moderate 03/04/2017 Patient Education: Patient [...] care surrogate. 12/17/2016 Appointment: Chela Camara WPtel: [facility] [place] [phone] [facility] - Annual Wellness Visit 12/17/2016 Patient Education: Patient Medication Summary Completed 12/17/2016 Visit Plan: Pneumonia-symptoms have resolved-no further follow up needed Left shoulder pain-suspect rotator cuff injury-recommend MRI- patient will consider-wants to rest for now and will let us know if she wants MRI 11/25/2016 Appointment: Chela Camara WPtel: [facility]8 [phone] (30 min) Complex 11/25/2016 Patient Education: Patient Medication Summary Completed 11/25/2016 Visit Plan: Left shoulder/arm pain-recent fall-xray shoulder and arm Pneumonia-follow up-symptoms improved-repeat chest xray 11/18/2016 Appointment: Chela Camara WPtel: [address] [place], [place] [phone] (30 min) Complex 11/18/2016 Patient Education: Patient Medication Summary Completed 11/18/2016 Visit Plan: Pneumonia-continue antibioitic for 5 additional days-start albuterol nebulizer as directed-continue advair as directed-will continue oxygen due to hypoxemia-oxygen saturation 86% on room air at rest today in the office. Follow up in the office in 1 week-sooner if needed. 11/11/2016 Appointment: Chela Camara WPtel: [address] [place], [place] [phone] (30 min) Complex 11/11/2016 Patient Education: Patient [...] or prn. 06/21/2016 Appointment: Chela Camara WPtel: [facility]5 [phone] (15 min) Moderate 06/21/2016 Patient Education: Patient [...] in blood pressure readings at home. Chronic ypit-dqfqmhjsxcnr-rkceh cymbalta 30mg daily-refill hydrocodone for prn use 05/20/2016 Appointment: Chela Camara WPtel: [facility]5 [phone] (30 min) Complex 05/20/2016 Patient Education: Patient Medication Summary Completed 05/20/2016 Care Plan: [facility]6 Pending 05/20/2016 Visit Plan: Hypertension - well controlled - continue with current medications, continue with no added salt diet. Pt has been encouraged to exercise daily. The pt has been advised to call the office if there are any acute concerns about change in blood pressure readings at home. DJD right knee- planning to have knee replacement next month with Dr Smyth at [place] 01/26/2016 Appointment: Chela Camara WPtel: [facility]5 [phone] (15 min) Moderate 01/26/2016 Patient Education: Patient Medication Summary Completed 01/26/2016 Care Plan: Referral Order SNOMED-CT : [id number] Ordered 11/19/2015 Visit Plan: Abscess/Cellulitis - The [...] peripheral edema. 08/22/2015 Appointment: Chela Camara WPtel: [address] [place], [place] [phone] (30 min) [facility] 08/22/2015 Patient Education: Patient Medication Summary Completed [...] fracture-refill hydrocodone 01/24/2015 Appointment: Chela Camara WPtel: [facility]4 [phone] Follow up 01/24/2015 Patient Education: Patient Medication Summary Completed 01/24/2015 Patient Education: Hypertension Completed 01/24/2015 Visit Plan: Hypertension - well controlled - continue with current medications, continue with no added salt diet. The pt has been advised to call the office if there are any acute concerns about change in blood pressure readings at home. 12/23/2014 Appointment: Pat[facility] Crisostomo [facility]Ptel[phone] [facility] [facility] follow up 12/23/2014 Patient Education: Patient Medication Summary Completed 12/23/2014 Patient Education: Hypertension Completed 12/23/2014 Appointment: Paty Crisostomo WPtel: [phone] [facility] Follow up 12/10/2014 Visit Plan: Hypertension - [...] movements. 10/08/2014 Appointment: Paty Crisostomo WPtel[facility] [phone] [facility] Follow up 10/08/2014 Patient Education: Patient Medication Summary Completed 10/08/2014 Patient Education: Hypertension Completed 10/08/2014 Care Plan: Referral Order SNOMED-CT : [id number] Ordered 10/08/2014 Visit Plan: Hypertension - uncontrolled [...] Summary Completed 07/22/2014 Appointment: Paty Crisostomo WPtel: [facility]5 [facility] Injection 06/14/2014 Patient Education: Patient Medication Summary Completed 06/14/2014 Patient Education: Patient Medication Summary Completed 06/13/2014 Visit Plan: Abd pain-flank bzhx-fddceibnzcfcvh-dymvrucir with Dr Crisostomo-plan for outpatient IV fluids and IV antibiotics as well as pain medicaton while allowing her bowels to rest. Patient verbalized understanding of plan. 01/11/2014 Appointment: Chela Camara WPtel: [phone] [phone] Sick 01/11/2014 Patient Education: Patient Medication Summary [...] Medication Summary Completed 01/07/2014 Visit Plan: Abdominal jwhnmpcx-fjhpfoxp-nflbv flagyl and probiotic and monitor symptoms. Call or go to ER for any worsening or worrisome symptoms. Recommend clear liquid diet advance to bland as tolerated. Toradol and phenergan injfections today in the office for acute symptoms. Patient verbalized understanding of plan. 10/30/2013 Appointment: Chela Camara WPtel: [facility]5 [facility] [phone] Sick 10/30/2013 Patient Education: Patient Medication Summary [...] requip for restless leg syndrome. Elevated blood doyooq-pwoqhljks-cinehqbr episodes-check Hgb A1C and TSH Fatigue-check labs 08/20/2013 Appointment: Chela Camara WPtel: [address] [place] [address] Other 08/20/2013 Patient Education: Patient Medication Summary [...] disease process. 07/06/2013 Appointment: Chela Camara WPtel: [address] [place] [address] Other 07/06/2013 Patient Education: Patient Medication Summary [...] attached forms. 04/30/2013 Appointment: Chela Camara WPtel: [facility]5 [facility] [place] [address] Other 04/30/2013 Patient Education: Patient Medication Summary [...] lab report. 10/26/2012 Appointment: Paty Crisostomo WPtel: [facility]6 [facility] Other 10/26/2012 Patient Education: Patient Medication Summary [...] peripheral edema. 07/12/2012 Appointment: Paty Crisostomo WPtel: [facility]5 [facility] Follow up 07/12/2012 Patient Education: Patient Medication Summary Completed 07/12/2012 Patient Education: High Blood Pressure: Essential Hypertension Completed 2011 Appointment: Paty Crisostomo WPtel: [facility]5 [facility] Follow up 07/03/2012 Visit Plan: Hypertension - [...] office 06/28/2012 Appointment: Chela Camara WPtel: [phone] [id number] [place] [address] Other 06/28/2012 Patient Education: Patient Medication Summary [...] READINGS. 05/24/2012 Appointment: Chela Camara WPtel: [phone] [facility] [phone] Follow up 05/24/2012 Patient Education: Patient Medication [...] use compression socks from toes to thighs. Wgfmxrgx-cmtft-mtacq xray and labs-will proceed as indicated 05/09/2012 Appointment: Chela Camara WPtel: [address] [place] [address] Other 05/09/2012 Patient Education: Patient Medication Summary [...] of plan. 01/31/2012 Appointment: Chela Camara WPtel: [address] [place] [address] Other 01/31/2012 Patient Education: Patient Medication Summary [...] acute concerns. 12/29/2011 Appointment: Chela Camara WPtel: [facility]5 [facility] [place] [address] Other 12/29/2011 Patient Education: Patient Medication Summary [...] at home. 12/20/2011 Appointment: Chela Camara WPtel: [facility] [place] [address] [place] Other 12/20/2011 Patient Education: Patient Medication [...] at home. 08/31/2011 Appointment: Chela Camara WPtel: [address] [place], [place] [phone] [address] Other 08/31/2011 Patient Education: Patient Medication Summary [...] treatment indicated. 08/17/2011 Appointment: Chela Camara WPtel: [facility]5 [phone] Other 08/17/2011 Patient Education: Patient Medication Summary Completed 08/17/2011 Patient Education: .Amazing charts Exercise for Sciatica Completed 08/17/2011 Visit Plan: Pyelonephritis - stop nitrofurantoin - starton levofloxacin 500mg qday x [address] scan scheduled for @ 4:15pm Start the levofloxacin tonight, start on a probiotic, such as cultrelle or Proxino to prevent diarrhea while on the antibiotic. Back pain - due to pyelonephritis - call if not improved. 05/21/2011 Appointment: Paty Crisostomo WPtel: [address] [place], [place] [phone] Follow up 05/21/2011 Patient Education: Patient Medication [...] replacement next month with Dr Smyth at [place] . Hypertension - well controlled - continue [...] check- culture should be back tomorrow . Abscess/Cellulitis - Left ring finger - [...] pustular drainage, or any other acute concerns. Xray right hip-we will call you with [...] in blood pressure readings at home. Chronic pjye-tizusdjrurrt-lbwza cymbalta 30mg daily-refill hydrocodone for prn use . Hypertension - well controlled - continue [...] diet when having loose bowel movements. . Hypertension - well controlled - continue with current medications, continue with no added salt diet. Pt has been encouraged to exercise daily. The pt has been advised to call the office if there are any acute concerns about change in blood pressure readings at home. Right leg back-recent femur fracture-refill hydrocodone . Left shoulder/arm pain-recent fall-xray shoulder and [...] use compression socks from toes to thighs. Nfcgsofz-eummj-obden xray and labs-will proceed as indicated Stop the naproxen Take 1 celebrex in [...] blood sugar-wants to lose weight-RX for metformin PROBIOTIC TWICE DAILY. Abdominal lvsesczp-hfryzydp-wabex flagyl and probiotic and monitor symptoms. Call or go to ER for any worsening or worrisome symptoms. Recommend clear liquid diet advance to bland as tolerated. Toradol and phenergan injfections today in the office for acute symptoms. Patient verbalized understanding of plan. . Thinning hair, fatigue, enlarged neck - recommended thyroid ultrasound, check labs, and monitor symptoms. Pt has been recommended pt to consider changing hair products, consider starting on rogaine and we will call her with lab report. culture rash buttock . Qbft-qwpvquq-fuhjhfg today in the office-will start patient on [...] in blood pressure readings at home. . Pyelonephritis - stop nitrofurantoin - starton levofloxacin 500mg qday x [address] scan scheduled for @ 4:15pm Start the levofloxacin tonight, start on a probiotic, such as [employer] or Proxino to prevent diarrhea while on the antibiotic. [...] to further attempt to reduce peripheral edema. FLU SHOT . Well Adult Female - exam completed. Pap and breast exam completed. Pt will be called with results of her testing. She was advised to continue with yearly annual exams. Safe sex practices discussed during office visit today. Call if any abnormal gynecologic issues during the next year, otherwise, RTC yearly or prn. Lasx 20mg po daily as needed for [...] by renal function or other disease process. Strep swab today in the office-we will [...] well. Patient verbalized understanding of plan. . Diarrhea - recommended bland diet, low [...] home. Edema -controlled-no change in treatment . Pneumonia-symptoms have resolved-no further follow up needed Left shoulder pain-suspect rotator cuff injury-recommend MRI-patient will consider-wants to rest for now and will let us know if she wants MRI . Hypertension - well controlled - continue [...] No further treatment indicated. . Abd pain-flank fhug-bozbsyybdsskig-bfxpcgdzk with Dr Crisostomo-plan for outpatient IV fluids and IV antibiotics as well as pain medicaton while allowing her bowels to rest. Patient verbalized understanding of plan. RETURN TOMORROW MORNING FOR DRESSING SLKWCU-OB-GIHOGOPTHP OF FINGER . Cellulitis - continue with oral antibiotics as previously directed, return to clinic as previously directed, call for acute change in symptoms, worsening redness, warmth, discharge. . Leg cramps-plan to check labs including magnesium, iron, and vitamin D levels-if okay, may consider trial of requip for restless leg syndrome. Elevated blood dvdibm-yzyewsmcz-uvydkkxt episodes-check Hgb A1C and TSH Fatigue-check labs use voltaren to inside of lower legs/knees [...] abdomen and pelvis - start on probiotic. pneumonia 23 due in June . Medicare [...] with Dr Smyth ( surgeon) on Tuesday Macrobid 100mg po BID x 10 days [...] is to call for acute concerns. . 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
--- OUTSIDE RECORDS SUMMARY | 2017-11-27 08:40 | XMS REPORT | Continuity of Care Document ---
Author Author [facility] [address] [facility] Organization [facility] [address] Address Unknown Phone Unavailable Allergies Active Description Code Type Severity Reaction Onset Reported/Identified Relationship to Patient Clinical Status Yes codeine [id number] Drug Allergy Unknown N/A 10/27/2005 Yes Sulfa (Sulfonamide Antibiotics) [id number] Drug Allergy Unknown NAUSEA BOWEL [place] 01/11/2014 Yes No Known Drug Allergies [id number] Drug Allergy Unknown N/A 03/20/2015 Medications There is no data. Problems Date Dx Coded Attending Type Code [...] LEANN SANTIAGO, SHYAM Ortiz Ot 789.00 10/23/2014 SHYAM NORIEGA MD Ot 790.6 10/28/2014 SHYAM NORIEGA MD Ot 787.91 10/28/2014 SHYAM NORIEGA MD Ot 789.00 11/04/2014 ROHAN JOYA MD Ot [...] LEANN SANTIAGO, SHYAM Ortiz Ot 789.00 03/21/2015 SHYAM NORIEGA MD Ot 272.4 03/21/2015 SHYAM NORIEGA MD Ot 401.9 03/21/2015 SHYAM NORIEGA MD Ot 458.9 03/21/2015 SHYAM NORIEGA MD Ot 584.9 03/21/2015 SHYAM NORIEGA MD Ot V43.64 06/23/2016 JD SCOTT Ot Z12.31 ENCNTR SCREEN MAMMOGRAM FOR MALIGNANT NE 06/24/2016 JD SCOTTP Ot Z12.31 ENCNTR SCREEN MAMMOGRAM FOR MALIGNANT NE 06/29/2016 JD SCOTT Ot Z12.31 ENCNTR SCREEN MAMMOGRAM FOR MALIGNANT NE 07/08/2016 JD SCOTT Ot Z12.31 ENCNTR SCREEN MAMMOGRAM FOR MALIGNANT NE 11/03/2016 LEANN SANTIAGO, SHYAM Ortiz Ot D72.819 DECREASED WHITE BLOOD CELL COUNT, UNSPEC 11/03/2016 SHYAM NORIEGA MD Ot E78.00 PURE HYPERCHOLESTEROLEMIA, UNSPECIFIED 11/03/2016 SHYAM NORIEGA MD Ot I10 ESSENTIAL (PRIMARY) HYPERTENSION 11/03/2016 SHYAM NORIEGA MD Ot J18.9 PNEUMONIA, UNSPECIFIED ORGANISM 11/03/2016 SHYAM NORIEGA MD Ot M06.9 RHEUMATOID ARTHRITIS, UNSPECIFIED 11/03/2016 SHYAM NORIEGA MD Ot R09.02 HYPOXEMIA 11/03/2016 SHYAM NORIEGA MD Ot R53.1 WEAKNESS 11/03/2016 SHYAM NORIEGA MD Ot 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 11/03/2016 SHYAM NORIEGA MD Ot Z96.641 PRESENCE OF RIGHT ARTIFICIAL HIP JOINT 11/04/2016 SHYAM NORIEGA MD Ot D72.819 DECREASED WHITE BLOOD CELL COUNT, UNSPEC 11/04/2016 SHYAM NORIEGA MD Ot E78.00 PURE HYPERCHOLESTEROLEMIA, UNSPECIFIED 11/04/2016 SHYAM NORIEGA MD Ot I10 ESSENTIAL (PRIMARY) HYPERTENSION 11/04/2016 SHYAM NORIEGA MD Ot J18.9 PNEUMONIA, UNSPECIFIED ORGANISM 11/04/2016 SHYAM NORIEGA MD Ot M06.9 RHEUMATOID ARTHRITIS, UNSPECIFIED 11/04/2016 SHYAM NORIEGA MD Ot R09.02 HYPOXEMIA 11/04/2016 SHYAM NORIEGA MD Ot R53.1 WEAKNESS 11/04/2016 SHYAM NORIEGA MD Ot 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 11/04/2016 SHYAM NORIEGA MD Ot Z96.641 PRESENCE OF RIGHT ARTIFICIAL HIP JOINT 11/18/2016 JD SCOTT DIRECTOR MISSION Ot M25.512 PAIN IN LEFT SHOULDER 11/18/2016 JD SCOTT DIRECTOR MISSION Ot R05 COUGH 12/09/2016 JD SCOTT DIRECTOR MISSION Ot M25.512 PAIN IN LEFT SHOULDER 12/09/2016 JD SCOTT DIRECTOR MISSION Ot R05 COUGH 08/07/2017 JESSE ALBERTS APRN Ot E78.00 PURE HYPERCHOLESTEROLEMIA, UNSPECIFIED 08/07/2017 JESSE ALBERTS APRN Ot I10 ESSENTIAL (PRIMARY) HYPERTENSION 08/07/2017 JESSE ALBERTS APRN Ot L03.012 CELLULITIS OF LEFT FINGER 08/07/2017 JESSE ALBERTS APRN Ot M06.9 RHEUMATOID ARTHRITIS, UNSPECIFIED 08/07/2017 JESSE ALBERTS FIELD ASSEMBLY SUPERVISOR Ot M79.645 PAIN IN LEFT FINGER(S) 08/07/2017 JESSE ALBERTS FIELD ASSEMBLY SUPERVISOR Ot Z82.49 FAMILY HX OF ISCHEM HEART DIS AND OTH DI 08/07/2017 JESES ALBERTS APRN Ot Z87.442 PERSONAL HISTORY OF URINARY CALCULI 08/07/2017 JESSE ALBERTS FIELD ASSEMBLY SUPERVISOR Ot Z90.710 ACQUIRED ABSENCE OF BOTH CERVIX AND UTER 08/07/2017 JESSE ALBERTS APRN Ot Z96.641 PRESENCE OF RIGHT ARTIFICIAL HIP JOINT 09/01/2017 SHYAM NORIEGA MD Ot 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 Results Test Result Range Complete blood count (CBC) with automated white blood cell (WBC) differential - 11/01/16 09:40 Blood leukocytes automated count (number/volume) 3.8 10*3/uL 4.3-11.0 Blood erythrocytes automated count (number/volume) 3.83 10*6/uL 4.35-5.85 Venous blood hemoglobin measurement (mass/volume) 12.6 [...] Automated blood platelet mean volume measurement 9.6 [foz_us] 7.4-10.4 Automated blood neutrophils/100 leukocytes 56 % [...] Serum or plasma sodium measurement (moles/volume) 139 mmol/L 135-145 Serum or plasma potassium measurement (moles/volume) 4.1 mmol/L 3.6-5.0 Serum or plasma chloride measurement (moles/volume) 104 mmol/L 98-107 Carbon dioxide 25 mmol/L 21-32 Serum or plasma anion gap determination (moles/volume) 10 mmol/L 5-14 Serum or plasma urea nitrogen measurement (mass/volume) 15 mg/dL 7-18 Serum or plasma creatinine measurement (mass/volume) 0.85 mg/dL 0.60-1.30 Serum or plasma urea nitrogen/creatinine mass [...] toxic granules detection by light microscopy 1+ [facility] Influenza virus A and B antigen detection - 11/01/16 10:55 FLU RESULT NEGATIVE FOR INFLUENZA A AND B ANTIGENS BY IA NR Blood lactic acid measurement (moles/volume) - 11/01/16 11:19 Blood lactic acid measurement (moles/volume) 0.9 mmol/L 0.5-2.0 Bacterial blood culture - 11/01/16 11:19 Bacterial blood culture NG NRG Bacterial blood culture - 11/01/16 11:24 Bacterial blood culture NG [facility] Automated blood complete blood count (hemogram) panel - 11/02/16 04:06 Blood leukocytes automated count (number/volume) 2.6 10*3/uL 4.3-11.0 Blood erythrocytes automated count (number/volume) 3.80 10*6/uL 4.35-5.85 Venous blood hemoglobin measurement (mass/volume) 12.4 [...] Automated blood platelet mean volume measurement 9.6 [foz_us] 7.4-10.4 Comprehensive metabolic panel - 11/02/16 04:06 Serum or plasma sodium measurement (moles/volume) 136 mmol/L 135-145 Serum or plasma potassium measurement (moles/volume) 4.1 mmol/L 3.6-5.0 Serum or plasma chloride measurement (moles/volume) 103 mmol/L 98-107 Carbon dioxide 21 mmol/L 21-32 Serum or plasma anion gap determination (moles/volume) 12 mmol/L 5-14 Serum or plasma urea nitrogen measurement (mass/volume) 15 mg/dL 7-18 Serum or plasma creatinine measurement (mass/volume) 0.76 mg/dL 0.60-1.30 Serum or plasma urea nitrogen/creatinine mass [...] 05:45 Blood leukocytes automated count (number/volume) 10.4 10*3/uL 4.3-11.0 Blood erythrocytes automated count (number/volume) 3.67 10*6/uL 4.35-5.85 Venous blood hemoglobin measurement (mass/volume) 12.0 [...] Automated blood platelet mean volume measurement 9.4 [foz_us] 7.4-10.4 Comprehensive metabolic panel - 11/03/16 05:45 Serum or plasma sodium measurement (moles/volume) 139 mmol/L 135-145 Serum or plasma potassium measurement (moles/volume) 3.8 mmol/L 3.6-5.0 Serum or plasma chloride measurement (moles/volume) 105 mmol/L 98-107 Carbon dioxide 25 mmol/L 21-32 Serum or plasma anion gap determination (moles/volume) 9 mmol/L 5-14 Serum or plasma urea nitrogen measurement (mass/volume) 18 mg/dL 7-18 Serum or plasma creatinine measurement (mass/volume) 0.79 mg/dL 0.60-1.30 Serum or plasma urea nitrogen/creatinine mass [...] 04:56 Blood leukocytes automated count (number/volume) 4.9 10*3/uL 4.3-11.0 Blood erythrocytes automated count (number/volume) 3.63 10*6/uL 4.35-5.85 Venous blood hemoglobin measurement (mass/volume) 11.7 [...] Automated blood platelet mean volume measurement 9.2 [foz_us] 7.4-10.4 Comprehensive metabolic panel - 11/04/16 04:56 Serum or plasma sodium measurement (moles/volume) 140 mmol/L 135-145 Serum or plasma potassium measurement (moles/volume) 4.1 mmol/L 3.6-5.0 Serum or plasma chloride measurement (moles/volume) 103 mmol/L 98-107 Carbon dioxide 27 mmol/L 21-32 Serum or plasma anion gap determination (moles/volume) 10 mmol/L 5-14 Serum or plasma urea nitrogen measurement (mass/volume) 14 mg/dL 7-18 Serum or plasma creatinine measurement (mass/volume) 0.74 mg/dL 0.60-1.30 Serum or plasma urea nitrogen/creatinine mass [...] plasma albumin measurement (mass/volume) 3.5 g/dL 3.2-4.5 Gram stain microscopy - 08/07/17 19:38 GRAM STAIN RESULT FEW GRAM POSITIVE COCCI RESEMBLING STAPH NRG Bacteria identification in wound by culture - 08/07/17 19:38 Bacteria identification in wound by culture [id number] NRG QUANTITY OF GROWTH Moderate Growth NRG CALL POSITIVES (F1 HELP) MRSA CALLED TO John ALBERTS/ER 08/09 12:20 NRG Bacterial susceptibility panel - 08/07/17 19:38 Oxacillin susceptibility test by minimum inhibitory concentration > = NRG Gentamicin susceptibility test by minimum inhibitory concentration < = NRG Clindamycin susceptibility test by minimum inhibitory concentration <= NRG Erythromycin susceptibility test by minimum inhibitory concentration >= NRG Trimethoprim/sulfamethoxazole susceptibility test by minimum inhibitoryconcentration S NRG Vancomycin susceptibility test by minimum inhibitory concentration S NRG Levofloxacin susceptibility test by minimum inhibitory concentration >= NRG Rifampin susceptibility test by minimum inhibitory concentration <= NRG Tetracycline susceptibility test by minimum inhibitory concentration >= NRG Ciprofloxacin susceptibility test by minimum inhibitory concentration R NRG Automated blood complete blood count (hemogram) panel - 09/15/17 12:00 Blood leukocytes automated count (number/volume) 5.2 10*3/uL 4.3-11.0 Blood erythrocytes automated count (number/volume) 3.26 10*6/uL 4.35-5.85 Venous blood hemoglobin measurement (mass/volume) 11.0 g/dL 11.5-16.0 Blood hematocrit (volume fraction) 33 % 35-52 Automated erythrocyte mean corpuscular volume 102 [foz_us] 80-99 Automated erythrocyte mean corpuscular hemoglobin (mass per erythrocyte) 34 pg 25-34 Automated erythrocyte mean corpuscular hemoglobin concentration measurement ( mass/volume) 33 g/dL 32-36 Automated erythrocyte distribution width ratio 13.6 % 10.0-14.5 Automated blood platelet count (count/volume) 310 10*3/uL 130-400 Automated blood platelet mean volume measurement 9.9 [foz_us] 7.4-10.4 Comprehensive metabolic panel - 09/15/17 12:00 Serum or plasma sodium measurement (moles/volume) 139 mmol/L 135-145 Serum or plasma potassium measurement (moles/volume) 3.4 mmol/L 3.6-5.0 Serum or plasma chloride measurement (moles/volume) 105 mmol/L 98-107 Carbon dioxide 25 mmol/L 21-32 Serum or plasma anion gap determination (moles/volume) 9 mmol/L 5-14 Serum or plasma urea nitrogen measurement (mass/volume) 19 mg/dL 7-18 Serum or plasma creatinine measurement (mass/volume) 0.81 mg/dL 0.60-1.30 Serum or plasma urea nitrogen/creatinine mass ratio 23 NRG Serum or plasma creatinine measurement with calculation of estimated glomerular filtration rate > NRG Serum or plasma glucose measurement (mass/volume) 105 mg/dL 70-105 Serum or plasma calcium measurement (mass/volume) 9.6 mg/dL 8.5-10.1 Serum or plasma total bilirubin measurement (mass/volume) 0.4 mg/dL 0.1-1.0 Serum or plasma alkaline phosphatase measurement (enzymatic activity/volume) 43 U/L 40-136 Serum or plasma aspartate aminotransferase measurement (enzymatic activity/ volume) 49 U/L 5-34 Serum or plasma alanine aminotransferase measurement (enzymatic activity/volume ) 44 U/L 0-55 Serum or plasma protein measurement (mass/volume) 7.4 g/dL 6.4-8.2 Serum or plasma albumin measurement (mass/volume) 4.0 g/dL 3.2-4.5 Encounters ACCT No. Visit Date/Time Discharge Status Pt. Type Provider Facility Loc./Unit Complaint [id number] 09/15/2017 11:24:00 09/15/2017 23:59:59 CLS Outpatient TABATHA EVANS FIELD ASSEMBLY SUPERVISOR [facility] CELLULITIS [id number] 08/10/2017 13:38:00 08/10/2017 23:59:59 CLS Outpatient SHYAM NORIEGA MD [facility] CELLULITIS,MRSA FINGER 4TH DIGIT L HAND [id number] 08/07/2017 18:53:00 08/07/2017 19:54:00 DIS Emergency JESSE ALBERTS FIELD ASSEMBLY SUPERVISOR [facility] [address] [facility] ER L HAND RING FINGER INJ [id number] 06/30/2017 08:24:00 06/30/2017 23:59:59 CLS Preadmit SHYAM NORIEGA MD [facility] [address] [facility] RAD SCREENING [id number] 11/18/2016 16:07:00 11/18/2016 23:59:59 CLS Outpatient JD SCOTT [facility] [address] [facility] RAD LT SHOULDER/ HUMERUS PAIN,COUGH [id number] 11/01/2016 11:08:00 11/04/2016 13:05:00 DIS Inpatient SHYAM NORIEGA MD [facility] [address] [facility] 4TH PNEUMONIA; HYPOXIA [id number] 06/23/2016 08:40:00 06/23/2016 23:59:59 CLS Outpatient JD SCOTT [facility] [address] [facility] RAD SCREENING [id number] 03/20/2015 14:44:00 03/21/2015 16:32:00 DIS Inpatient SHYAM NORIEGA MD [facility] [address] 4TH [id number] 11/05/2014 10:34:00 11/05/2014 23:59:59 CLS Outpatient ROHAN JOYA MD [facility] CARD [id number] 11/01/2014 14:10:00 11/01/2014 23:59:59 CLS Outpatient TOAN SANTIAGO, ROHAN Yao [facility] [address] [facility] CARD [id number] 10/03/2014 10:12:00 10/03/2014 12:55:00 DIS Emergency LINDA PRICE MD [facility] ER [id number] 09/26/2014 12:48:00 09/26/2014 23:59:59 CLS Outpatient SHYAM NORIEGA MD [facility] RAD [id number] 09/25/2014 12:37:00 09/25/2014 23:59:59 CLS Outpatient SHYAM NORIEGA MD [facility] LAB [id number] 09/09/2014 13:09:00 09/09/2014 14:17:00 DIS Outpatient ADITYA PERLA MD [facility] CARD [id number] 07/26/2014 08:23:00 07/26/2014 09:27:00 DIS Outpatient [id number] 06/14/2014 09:30:00 06/14/2014 23:59:59 CLS Outpatient [id number] 05/03/2014 07:30:00 05/03/2014 08:17:00 DIS Outpatient [id number] 03/18/2014 12:52:00 03/18/2014 14:24:00 DIS Outpatient [id number] 03/07/2014 18:36:00 03/07/2014 21:07:00 DIS Emergency [id number] 01/11/2014 11:23:00 01/11/2014 23:59:59 CLS Outpatient [id number] 12/17/2013 10:41:00 01/08/2014 11:12:00 DIS Outpatient [id number] 01/07/2014 12:26:00 01/07/2014 23:59:59 CLS Outpatient [id number] 12/24/2013 12:08:00 12/24/2013 23:59:59 CLS Outpatient [id number] 11/16/2013 08:13:00 11/16/2013 09:04:00 DIS Outpatient [id number] 11/01/2013 19:13:00 11/01/2013 21:19:00 DIS Emergency [id number] 07/20/2013 08:47:00 07/20/2013 23:59:59 CLS Outpatient [id number] 06/11/2013 08:28:00 06/11/2013 23:59:59 CLS Outpatient [id number] 06/11/2013 08:21:00 06/11/2013 23:59:59 CLS Outpatient [id number] 01/03/2015 20:45:00 Document Registration
== END 2017-11-26 11:46 | disposition home or self-care (01) ==
LOC: EDUNIT# 09:39 → ER 09:40
DX: S09.90XA Unspecified injury of head, initial encounter (principal); S13.4XXA Sprain of ligaments of cervical spine, initial encounter; S40.012A Contusion of left shoulder, initial encounter; S80.02XA Contusion of left knee, initial encounter; M06.9 Rheumatoid arthritis, unspecified; E78.00 Pure hypercholesterolemia, unspecified; I10 Essential (primary) hypertension; Z87.442 Personal history of urinary calculi; Z90.710 Acquired absence of both cervix and uterus; Z96.641 Presence of right artificial hip joint; W19.XXXA Unspecified fall, initial encounter
CPT/HCPCS: 70450; 71045; 72125; 73030; 73562

== ENCOUNTER 2017-12-23 09:17 | Emergency (ER) | payer MEDICARE, OTHER ==
[~2017-12-23] VITALS: Ht 170.2 cm; Wt 78.0 kg
--- OUTSIDE RECORDS SUMMARY | 2017-12-23 10:02 | XMS REPORT | Continuity of Care Document ---
Author Author [facility] Organization [facility] Address Unknown Phone Unavailable Allergies Active Description Code Type Severity Reaction Onset Reported/Identified Relationship to Patient Clinical Status Yes codeine [id number] Drug Allergy Unknown N/A 10/27/2005 Yes Sulfa (Sulfonamide Antibiotics) [id number] Drug Allergy Unknown NAUSEA BOWEL [place] 01/11/2014 Yes No Known Drug Allergies [id number] Drug Allergy Unknown N/A 03/20/2015 Medications There is no data. Problems Date Dx Coded Attending Type Code Diagnosis Diagnosed By 01/10/2013 Ot 715.35 LOC OSTEOARTH NOS-PELVIS 01/10/2013 Ot 719.45 JOINT PAIN- PELVIS 01/10/2013 Ot 724.3 SCIATICA 11/01/2013 JULEE AVENDAÑO DO Ot 558.9 NONINF GASTROENTERIT NEC 11/01/2013 JULEE AVENDAÑO DO Ot 787.91 DIARRHEA 11/16/2013 ADITYA PERLA MD Ot 721.0 CERVICAL SPONDYLOSIS 11/16/2013 ADITYA PERLA MD Ot 721.3 LUMBOSACRAL SPONDYLOSIS 11/16/2013 ADITYA PERLA MD Ot 722.4 CERVICAL DISC DEGEN 11/16/2013 ADITYA PERLA MD Ot 729.1 MYALGIA AND MYOSITIS NOS 11/16/2013 ADITYA PERLA MD Ot V58.69 OT MED,LT,CURRENT USE 01/08/2014 JD SCOTT FORESTRY BIOLOGY SPECIALIST Ot 338.29 OTHER CHRONIC PAIN 01/08/2014 JD SCOTT Ot 724.5 BACKACHE NOS 01/08/2014 JD SCOTT Ot 729.5 PAIN IN LIMB 01/08/2014 JD SCOTT Ot V57.1 PHYSICAL THERAPY NEC 03/07/2014 NOREEN CARR DO Ot 272.0 PURE HYPERCHOLESTEROLEM 03/07/2014 NOREEN CARR DO Ot 338.29 OTHER CHRONIC PAIN 03/07/2014 NOREEN CARR DO Ot 401.9 HYPERTENSION NOS 03/07/2014 NOREEN CARR DO Ot 716.90 ARTHROPATHY NOS-UNSPEC 03/07/2014 NOREEN CARR DO Ot 723.1 CERVICALGIA 03/07/2014 NOREEN CARR DO Ot 913.0 ABRASION FOREARM 03/07/2014 NOREEN CARR DO Ot 916.0 ABRASION HIP LEG 03/07/2014 NOREEN CARR DO Ot 923.10 CONTUSION OF FOREARM 03/07/2014 NOREEN CARR DO Ot 924.10 CONTUSION OF LOWER LEG 03/07/2014 NOREEN CARR DO Ot E849.0 ACCIDENT IN HOME 03/07/2014 NOREEN CARR DO Ot E888.9 FALL NOS 03/07/2014 NOREEN CARR DO Ot V13.02 PERSONAL HISTORY, URINARY (TRACT) INFECT 03/07/2014 NOREEN CARR DO Ot V15.88 HISTORY OF FALL 03/07/2014 NOREEN CARR DO Ot V43.64 HIP JOINT REPLACEMENT STATUS 03/18/2014 ADITYA PERLA MD Ot 721.0 CERVICAL SPONDYLOSIS 03/18/2014 ADITYA PERLA MD Ot 721.3 LUMBOSACRAL SPONDYLOSIS 03/18/2014 ADITYA PERLA MD Ot 722.4 CERVICAL DISC DEGEN 03/18/2014 ADITYA PERLA MD Ot 722.52 LUMB/LUMBOSAC DISC DEGEN 03/18/2014 ADITYA PERLA MD Ot 729.1 MYALGIA AND MYOSITIS NOS 03/18/2014 ADITYA PERLA MD Ot V58.69 OTH MED,LT,CURRENT USE 05/03/2014 ADITYA PERLA MD Ot 721.0 CERVICAL SPONDYLOSIS 05/03/2014 ADITYA PERLA MD Ot 721.3 LUMBOSACRAL SPONDYLOSIS 05/03/2014 ADITYA PERLA MD Ot 722.4 CERVICAL DISC DEGEN 05/03/2014 ADITYA PERLA MD Ot 729.1 MYALGIA AND MYOSITIS NOS 05/03/2014 ADITYA PERLA MD Ot V58.69 OTH MED,LT,CURRENT USE 07/26/2014 ADITYA PERLA MD Ot 721.0 CERVICAL SPONDYLOSIS 07/26/2014 ADITYA PERLA MD Ot 721.3 LUMBOSACRAL SPONDYLOSIS 07/26/2014 ADITYA PERLA MD Ot 722.52 LUMB/LUMBOSAC DISC DEGEN 07/26/2014 ADITYA PERLA MD Ot 729.1 MYALGIA AND MYOSITIS NOS 07/26/2014 ADITYA PERLA MD Ot V58.69 OTH MED,LT,CURRENT USE 09/09/2014 ADITYA PERLA MD Ot 721.3 LUMBOSACRAL SPONDYLOSIS 09/09/2014 ADITYA PERLA MD Ot 729.1 MYALGIA AND MYOSITIS NOS 09/09/2014 ADITYA PERLA MD, Ot V58.69 OTH MED,LT,CURRENT USE 10/03/2014 LINDA PRICE MD Ot 401.9 HYPERTENSION NOS 10/03/2014 LINDA PRICE MD Ot 562.11 DIVERTICULITIS COLON (W/O MENT OF HEMORR 10/03/2014 LINDA PRICE MD Ot 789.00 ABDOMINAL PAIN, UNSPECIFIED SITE 10/03/2014 LINDA PRICE MD Ot V58.69 OTH MED,LT,CURRENT USE 10/23/2014 LEANN SANTIAGO, SHYAM Ortiz Ot 401.9 10/23/2014 LEANN SANTIAGO, SHYAM Ortiz Ot 787.91 10/23/2014 LEANN SANTIAGO, SHYAM Ortiz Ot 789.00 10/23/2014 SHYAM NORIEGA MD Ot 790.6 10/28/2014 LEANN SANTIAGO, SHYAM Ortiz Ot 787.91 10/28/2014 SHYAM NORIEGA MD Ot 789.00 11/04/2014 ROHAN JOYA MD Ot 401.9 11/04/2014 ROHAN JOYA MD Ot 723.0 11/04/2014 ROHAN JOYA MD Ot 723.1 11/04/2014 ROHAN JOYA MD Ot 785.1 11/04/2014 ROHAN JOYA MD Ot 786.09 11/04/2014 ROHAN JOYA MD Ot 786.50 11/07/2014 ROHAN JOYA MD Ot 401.9 11/07/2014 ROHAN JOYA MD Ot 723.0 11/07/2014 ROHAN JOYA MD Ot 785.1 11/07/2014 TOAN SANTIAGO, ROHAN Yao Ot 786.09 11/07/2014 ROHAN JOYA MD Ot 786.50 11/22/2014 Ot 401.9 HYPERTENSION NOS 11/22/2014 Ot 821.01 FX FEMUR SHAFT-CLOSED 11/22/2014 Ot 847.0 SPRAIN OF NECK 11/22/2014 Ot 924.8 MULTIPLE CONTUSIONS NEC 11/22/2014 Ot 959.6 HIP THIGH INJURY NOS 11/22/2014 Ot E000.8 OTHER EXTERNAL CAUSE STATUS 11/22/2014 Ot E849.0 ACCIDENT IN HOME 11/22/2014 Ot E888.9 FALL NOS 11/22/2014 Ot V58.69 OTH MED,LT, CURRENT USE 01/10/2015 SHYAM NORIEGA MD Ot 787.91 01/10/2015 SHYAM NORIEGA MD Ot 789.00 03/21/2015 SHYAM NORIEGA MD Ot 272.4 HYPERLIPIDEMIA NEC/NOS 03/21/2015 SHYAM NORIEGA MD Ot 401.9 HYPERTENSION NOS 03/21/2015 SHYAM NORIEGA MD Ot 458.9 HYPOTENSION NOS 03/21/2015 SHYAM NORIEGA MD Ot 584.9 ACUTE RENAL FAILURE, UNSPECIFIED 03/21/2015 SHYAM NORIEGA MD Ot V43.64 HIP JOINT REPLACEMENT STATUS 06/23/2016 JD SCOTT Ot Z12.31 ENCNTR SCREEN [...] 11/03/2016 SHYAM NORIEGA MD Ot Z79.899 OTHER FLOUR INSPECTOR (CURRENT) DRUG THERAPY 11/03/2016 SHYAM NORIEGA MD [...] 11/04/2016 SHYAM NORIEGA MD Ot Z79.899 OTHER DETENTION (CURRENT) DRUG THERAPY 11/04/2016 SHYAM NORIEGA MD Ot Z96.641 PRESENCE OF RIGHT ARTIFICIAL HIP JOINT 11/18/2016 JD SCOTT FORESTRY BIOLOGY SPECIALIST Ot M25.512 PAIN IN LEFT SHOULDER 11/18/2016 JD SCOTT FORESTRY BIOLOGY SPECIALIST Ot R05 COUGH 12/09/2016 JD SCOTT FORESTRY BIOLOGY SPECIALIST Ot M25.512 PAIN IN LEFT SHOULDER 12/09/2016 JD SCOTT FORESTRY BIOLOGY SPECIALIST Ot R05 COUGH 08/07/2017 JESSE ALBERTS APRN Ot E78.00 PURE HYPERCHOLESTEROLEMIA, UNSPECIFIED 08/07/2017 JESSE ALBERTS APRN Ot I10 ESSENTIAL (PRIMARY) HYPERTENSION 08/07/2017 JESSE ALBERTS APRN Ot L03.012 CELLULITIS OF LEFT FINGER 08/07/2017 JESSE ALBERTS APRN Ot M06.9 RHEUMATOID ARTHRITIS, UNSPECIFIED 08/07/2017 JESSE ALBERTS SUPERVISOR DENTAL LABORATORY Ot M79.645 PAIN IN LEFT FINGER(S) 08/07/2017 JESSE ALBERTS APRN Ot Z82.49 FAMILY HX OF ISCHEM HEART DIS AND OTH DI 08/07/2017 JESSE ALBERTS SUPERVISOR DENTAL LABORATORY Ot Z87.442 PERSONAL HISTORY OF URINARY CALCULI 08/07/2017 JESSE ALBERTS APRN Ot Z90.710 ACQUIRED ABSENCE OF BOTH CERVIX AND UTER 08/07/2017 JESSE ALBERTS APRN Ot Z96.641 PRESENCE OF RIGHT ARTIFICIAL HIP JOINT 09/01/2017 LEANN SANTIAGO, SHYAM Ortiz Ot 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 09/01/2017 LEANN SANTIAGO, SHYAM Ortiz Ot L03.012 CELLULITIS OF LEFT FINGER 09/23/2017 TABATHA EVANS SUPERVISOR DENTAL LABORATORY Ot L03.90 CELLULITIS, UNSPECIFIED 09/25/2017 TABATHA EVANS SUPERVISOR DENTAL LABORATORY Ot L03.90 CELLULITIS, UNSPECIFIED 10/11/2017 TABATHA EVANS SUPERVISOR DENTAL LABORATORY Ot L03.90 CELLULITIS, UNSPECIFIED 11/26/2017 JULEE AVENDAÑO DO Ot E78.00 PURE HYPERCHOLESTEROLEMIA, UNSPECIFIED 11/26/2017 JULEE AVENDAÑO DO Ot I10 ESSENTIAL (PRIMARY) HYPERTENSION 11/26/2017 JULEE AVENDAÑO DO Ot M06.9 RHEUMATOID ARTHRITIS, UNSPECIFIED 11/26/2017 JULEE AVENDAÑO DO Ot M25.512 PAIN IN LEFT SHOULDER 11/26/2017 JULEE AVENDAÑO DO Ot S09.90XA UNSPECIFIED INJURY OF HEAD, INITIAL ENCO 11/26/2017 JULEE AVENDAÑO DO Ot S13.4XXA SPRAIN OF LIGAMENTS OF CERVICAL SPINE, I 11/26/2017 JULEE AVENDAÑO DO Ot S40.012A CONTUSION OF LEFT SHOULDER, INITIAL ENCO 11/26/2017 JULEE AVENDAÑO DO Ot S80.02XA CONTUSION OF LEFT KNEE, INITIAL ENCOUNTE 11/26/2017 JULEE AVENDAÑO DO Ot W19.XXXA UNSPECIFIED FALL, INITIAL ENCOUNTER 11/26/2017 JULEE AVENDAÑO DO Ot Z87.442 PERSONAL HISTORY OF URINARY CALCULI 11/26/2017 JULEE AVENDAÑO DO Ot Z90.710 ACQUIRED ABSENCE OF BOTH CERVIX AND UTER 11/26/2017 JULEE AVENDAÑO DO Ot Z96.641 PRESENCE OF RIGHT ARTIFICIAL HIP JOINT 12/02/2017 JULEE AVENDAÑO DO Ot E78.00 PURE HYPERCHOLESTEROLEMIA, UNSPECIFIED 12/02/2017 JAROCHO JULEE Finley Ot I10 ESSENTIAL (PRIMARY) HYPERTENSION 12/02/2017 JAROCHO JULEE Finley Ot M06.9 RHEUMATOID ARTHRITIS, UNSPECIFIED 12/02/2017 JAROCHO JULEE Finley Ot M25.512 PAIN IN LEFT SHOULDER 12/02/2017 JAROCHO JULEE Finley Ot S09.90XA UNSPECIFIED INJURY OF HEAD, INITIAL ENCO 12/02/2017 JAROCHO JULEE Finley Ot S13.4XXA SPRAIN OF LIGAMENTS OF CERVICAL SPINE, I 12/02/2017 JAROCHO JULEE Finley Ot S40.012A CONTUSION OF LEFT SHOULDER, INITIAL ENCO 12/02/2017 JAROCHO JULEE Finley Ot S80.02XA CONTUSION OF LEFT KNEE, INITIAL ENCOUNTE 12/02/2017 JAROCHO GRAFF JULEE Finley Ot W19.XXXA UNSPECIFIED FALL, INITIAL ENCOUNTER 12/02/2017 JAROCHO GRAFF JULEE Finley Ot Z87.442 PERSONAL HISTORY OF URINARY CALCULI 12/02/2017 JAROCHO JULEE Finley Ot Z90.710 ACQUIRED ABSENCE OF BOTH CERVIX AND UTER 12/02/2017 JAROCHO JULEE Finley Ot Z96.641 PRESENCE OF RIGHT ARTIFICIAL HIP JOINT 12/21/2017 Ot 241.0 NONTOX UNINODULAR GOITER 12/21/2017 Ot 281.9 DEFICIENCY ANEMIA NOS 12/21/2017 Ot 704.00 ALOPECIA NOS 12/21/2017 Ot 782.62 FLUSHING 12/21/2017 Ot 794.5 ABN THYROID FUNCT STUDY 12/21/2017 Ot 241.0 NONTOX UNINODULAR GOITER 12/21/2017 LEANN SANTIAGO, SHYAM Ortiz Ot 793.19 OTHER NONSPECIFIC ABNORMAL FINDING OF PATRICE 12/21/2017 RIANNA SANTIAGO, ESTER Ot V76.12 OTH SCREEN MAMMO-MALIGN NEOPLASM OF ONUR 12/21/2017 HEARNDON DONICOLE Ot 723.0 CERVICAL SPINAL STENOSIS 12/21/2017 MINDA SANTIAGO, ADITYA Yao Ot 715.36 LOC OSTEOARTH NOS-L/LEG 12/21/2017 MINDA SANTIAGO, ADITYA Yao Ot 719.46 JOINT PAIN-L/LEG 12/21/2017 LEANN SANTIAGO, SHYAM Ortiz Ot 562.10 DIVERTICULOSIS COLON (W/O MENT OF HEMORR 12/21/2017 JD SCOTT Ot 562.11 DIVERTICULITIS COLON (W/O MENT OF HEMORR 12/21/2017 JD SCOTTP Ot V76.12 OTH SCREEN MAMMO-MALIGN NEOPLASM OF ONUR 12/21/2017 SHYAM NORIEGA MD Ot 787.91 DIARRHEA 12/21/2017 SHYAM NORIEGA MD Ot 789.00 ABDOMINAL PAIN, UNSPECIFIED SITE 12/21/2017 SHYAM NORIEGA MD Ot 401.9 HYPERTENSION NOS 12/21/2017 SHYAM NORIEGA MD Ot 787.91 DIARRHEA 12/21/2017 SHYAM NORIEGA MD Ot 789.00 ABDOMINAL PAIN, UNSPECIFIED SITE 12/21/2017 SHYAM NORIEGA MD Ot 790.6 ABN BLOOD CHEMISTRY NEC 12/21/2017 ROHAN JOYA MD Ot 401.9 HYPERTENSION NOS 12/21/2017 ROHAN JOYA MD Ot 723.0 CERVICAL SPINAL STENOSIS 12/21/2017 ROHAN JOYA MD Ot 785.1 PALPITATIONS 12/21/2017 ROHAN JOYA MD Ot 786.09 RESPIRATORY ABNORM NEC 12/21/2017 ROHAN JOYA MD Ot 786.50 CHEST PAIN NOS 12/21/2017 ROHAN JOYA MD Ot 401.9 HYPERTENSION NOS 12/21/2017 ROHAN JOYA MD Ot 723.0 CERVICAL SPINAL STENOSIS 12/21/2017 ROHAN JOYA MD Ot 723.1 CERVICALGIA 12/21/2017 ROHAN JOYA MD Ot 785.1 PALPITATIONS 12/21/2017 ROHAN JOYA MD Ot 786.09 RESPIRATORY ABNORM NEC 12/21/2017 ROHAN JOYA MD Ot 786.50 CHEST PAIN NOS 12/21/2017 JD SCOTT Ot Z12.31 ENCNTR SCREEN MAMMOGRAM FOR MALIGNANT NE 12/21/2017 JD SCOTT Ot M25.512 PAIN IN LEFT SHOULDER 12/21/2017 JD SCOTTP Ot R05 COUGH 12/21/2017 SHYAM NORIEGA MD Ot 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 Type Provider Facility Loc./Unit Complaint [id number] 11/26/2017 09:40:00 11/26/2017 11:46:00 DIS Emergency JULEE AVENDAÑO DO [facility] ER SHOULDER PAIN FROM FALL [id number] 09/15/2017 11:24:00 09/15/2017 23:59:59 CLS Outpatient TABATHA EVANS APRN [facility] SDC CELLULITIS [id number] 08/10/2017 13:38:00 08/10/2017 23:59:59 CLS Outpatient SHYAM NORIEGA MD [facility] SDC CELLULITIS,MRSA FINGER 4TH DIGIT L HAND [id number] 08/07/2017 18:53:00 08/07/2017 19:54:00 DIS Emergency JESSE ALBERTS APRN [facility] ER L HAND RING FINGER INJ [id number] 06/30/2017 08:24:00 06/30/2017 23:59:59 CLS Preadmit SHYAM NORIEGA MD [facility] RAD SCREENING [id number] 11/18/2016 16:07:00 11/18/2016 23:59:59 CLS Outpatient JD SCOTT [facility] RAD LT SHOULDER/ HUMERUS PAIN,COUGH [id number] 11/01/2016 11:08:00 11/04/2016 13:05:00 DIS Inpatient SHYAM NORIEGA MD [facility] 4TH PNEUMONIA; HYPOXIA [id number] 06/23/2016 08:40:00 06/23/2016 23:59:59 CLS Outpatient JD SCOTT [facility] RAD SCREENING [id number] 03/20/2015 14:44:00 03/21/2015 16:32:00 DIS Inpatient SHYAM NORIEGA MD [facility] 4TH ACUTE RENAL FAILURE/ HYPERTENSION [id number] 11/05/2014 10:34:00 11/05/2014 23:59:59 CLS Outpatient ROHAN JOYA MD [facility] CARD CP,DYSPNEA,HTN, PALPITATION [id number] 11/01/2014 14:10:00 11/01/2014 23:59:59 CLS Outpatient ROHAN JOYA MD [facility] CARD CP,DYSPNEA,PALPITATIONS [id number] 10/03/2014 10:12:00 10/03/2014 12:55:00 DIS Emergency LINDA PRICE MD [facility] ER ABD PAIN/ELEV BP [id number] 09/26/2014 12:48:00 09/26/2014 23:59:59 CLS Outpatient SHYAM NORIEGA MD [facility] RAD ABDOMINAL PAIN DIARRHEA [id number] 09/25/2014 12:37:00 09/25/2014 23:59:59 CLS Outpatient SHYAM NORIGEA MD [facility] LAB ELEVATED LFT,ABD PAIN ,DIARRHEA [id number] 09/09/2014 13:09:00 09/09/2014 14:17:00 DIS Outpatient ADITYA PERLA MD [facility] CARD LUMBAR SPONDOLOYSIS [id number] 07/26/2014 08:23:00 07/26/2014 09:27:00 DIS Outpatient ADITYA PERLA MD [facility] CARD DEGENERATIVE DISC DISEASE LUMBAR [id number] 06/14/2014 09:30:00 06/14/2014 23:59:59 CLS Outpatient JD SCOTT [facility] RAD SCREENING [id number] 05/03/2014 07:30:00 05/03/2014 08:17:00 DIS Outpatient ADITYA PERLA MD [facility] CARD LUMBAR SPONDYLOSIS [id number] 03/18/2014 12:52:00 03/18/2014 14:24:00 DIS Outpatient ADITYA PERLA MD [facility] CARD DEGENERATIVE DISC DISEASE LUMBAR [id number] 03/07/2014 18:36:00 03/07/2014 21:07:00 DIS Emergency NOREEN CARR DO [facility] ER R ELBOW INJ [id number] 01/11/2014 11:23:00 01/11/2014 23:59:59 CLS Outpatient JD SCOTT [facility] ABD PAIN, DIVERTICULITIS [id number] 12/17/2013 10:41:00 01/08/2014 11:12:00 DIS Outpatient JD SCOTT [facility] REHAB CHRONIC BACK PAIN , RT LEG PAIN [id number] 01/07/2014 12:26:00 01/07/2014 23:59:59 CLS Outpatient SHYAM NORIEGA MD [facility] RAD ABD PAIN,BACK PAIN [id number] 12/24/2013 12:08:00 12/24/2013 23:59:59 CLS Outpatient ADITYA PERLA MD [facility] RAD KNEE PAIN R [id number] 11/16/2013 08:13:00 11/16/2013 09:04:00 DIS Outpatient ADITYA PERLA MD [facility] CARD LUMBAGO [id number] 11/01/2013 19:13:00 11/01/2013 21:19:00 DIS Emergency JAROCHO JULEE GRAFF [facility] ER L ARM NUMBNESS [id number] 07/20/2013 08:47:00 07/20/2013 23:59:59 CLS Outpatient HEMALATHAFALGUNI NICOLE [facility] RAD CERVICAL RADICULOPATHY [id number] 06/11/2013 08:28:00 06/11/2013 23:59:59 CLS Outpatient ESTER BLANCA MD [facility] RAD SCREENING [id number] 06/11/2013 08:21:00 06/11/2013 23:59:59 CLS Outpatient SHYAM NORIEGA MD [facility] RAD LT LUNG NODULE,F/U [id number] 12/23/2017 10:15:00 PEN Preadmit DJ SCOTT [facility] RAD LT SHOULDER PAIN [id number] 01/03/2015 20:45:00 Document Registration [id number] 01/10/2013 17:36:00 Document Registration [id number] 11/01/2012 11:06:00 Document Registration [id number] 10/30/2012 11:05:00 Document Registration [id number] 08/08/2017 09:33:00 08/08/2017 23:59:59 CLS Outpatient
--- NOTE | 2017-12-23 10:25 | ED General ---
General Chief Complaint: Cardiac/General Problems Stated Complaint: BP CONCERNS Nursing Triage Note: Pt reports she had her blood pressure taken at [facility] and BP was 168/119 followed by a BP of 70/102. Nursing Sepsis Screen: No Definite Risk Source of Information: Patient Exam Limitations: No Limitations History of Present Illness Date Seen by Provider: Dec 23, 2017 Time Seen by Provider: 10:10 Initial Comments Here with report of not feeling well. Apparently was told that she had low blood pressure with systolic hypotension after having blood pressure showing hypertension. Patient states he just wasn't feeling well when she had her blood pressure taken. She was sent over here. Here she has normal blood pressure and is actually feeling better. She is due to have an MRI of her shoulder today which is been a chronic problem. That is scheduled at 1015. Timing/Duration: 1 Hour, Gone Now Severity: Moderate Associated Systoms: No Chest Pain, No Fever/Chills, Malaise, No Nausea/Vomiting , No Shortness of Air, No Weakness Allergies and Home Medications Allergies Coded Allergies: No Known Drug Allergies (Unverified , 03/20/15) Home Medications Amlodipine Besylate 5 Mg Tablet, 5 MG PO DAILY, (Reported) Cholecalciferol (Vitamin D3) 2,000 Unit Capsule, 2,000 UNIT PO HS, (Reported) Diclofenac Sodium 75 Mg Tablet.dr, 75 MG PO BID, (Reported) Doxycycline Hyclate 100 Mg Capsule, 100 MG PO BID Prescribed by: JESSE ALBERTS on 08/07/171944 Duloxetine Hcl 30 Mg Cap, 30 MG PO DAILY, (Reported) Estradiol 0.5 Mg Tablet, 0.5 MG PO DAILY, (Reported) Ezetimibe 10 Mg Tablet, 10 MG PO DAILY, (Reported) Fenofibrate Nanocrystallized 145 Mg Tablet, 145 MG PO DAILY, (Reported) Fluticasone/Salmeterol 12 Gm Hfa.aer.ad, 2 PUFF IH BID@ Prescribed by: SHYAM NORIEGA on 11/04/16 0946 Folic Acid 1 Mg Tablet, 1 MG PO DAILY, (Reported) Gabapentin 100 Mg Capsule, 200 MG PO DAILY, (Reported) TAKES 2 (100MG) CAPSULES Gabapentin 100 Mg Capsule, 300 MG PO HS, (Reported) TAKES 3 (100MG) CAPSULES Hydrocodone Bit/Acetaminophen 1 Each Tablet, 1 TAB PO BID, (Reported) Hydrocodone/Acetaminophen 1 Each Tablet, 1 TAB PO Q6H PRN for MODERATE PAIN, ( Reported) Hyoscyamine Sulfate 0.375 Mg Tab.er.12h, 0.375 MG PO BID, (Reported) Infliximab 100 Mg Soln, 300 MG IV EVERY 8 WEEKS, (Reported) Lactobacillus Combination No.9 1 Each Capsule, 1 EACH PO TID Prescribed by: SHYAM NORIEGA on 11/04/16945 Levofloxacin 500 Mg Tablet, 500 MG PO DAILY Prescribed by: SHYAM NORIEGA on 11/04/16945 Methotrexate Sodium 2.5 Mg Tablet, 15 MG PO We, (Reported) TAKES 6 (2.5MG) TABLETS Nitrofurantoin Macrocrystal 50 Mg Capsule, 50 MG PO HS, (Reported) Olmesartan Medoxomil 40 Mg Tablet, 40 MG PO DAILY, (Reported) Omeprazole 20 Mg Capsule.dr, 20 MG PO BID, (Reported) Ropinirole Hcl 0.5 Mg Tablet, 0.5 MG PO HS, (Reported) Patient Home Medication List Home Medication List Reviewed: Yes Review of Systems Constitutional: see HPI, No chills, No fever Respiratory: no symptoms reported Cardiovascular: see HPI, No chest pain, No edema Gastrointestinal: No abdominal pain, No nausea, No vomiting Genitourinary: no symptoms reported Musculoskeletal: no symptoms reported Psychiatric/Neurological: See HPI Past Rkmtplo-Pveque-Dvwegi Hx Past Med/Social Hx: Reviewed Nursing Past Med/Soc Hx Patient Social History Alcohol Use: Denies Use Recreational Drug Use: No Smoking Status: Never a Smoker 2nd Hand Smoke Exposure: No Recent Foreign Travel: No Contact w/Someone Who Travel: No Recent Infectious Disease Expo: No Recent Hopitalizations: No Immunizations Up To Date Tetanus Booster (TDap): Less than 5yrs PED Vaccines UTD: No Date of Pneumonia Vaccine: Nov 02, 2012 Date of Influenza Vaccine: Jun 19, 2016 Seasonal Allergies Seasonal Allergies: No Past Medical History Surgeries: Yes (R TOTAL HIP L AND R SURGERY ON KNEES) Breast, Gallbladder, Hysterectomy, Joint Replacement, Orthopedic, Renal Respiratory: No Cardiac: Yes High Cholesterol, Hypertension Neurological: No 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 Disorders: No Female 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 Disorders: Denies 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 Sexually Transmitted Disease: No HIV/AIDS: No Genitourinary: Yes Kidney Stones, UTI-Chronic Gastrointestinal: Yes Diverticulosis Musculoskeletal: Yes (march 03 brucitis sack removed from left knee, right femur repair) Arthritis, Rheumatoid Arthritis Endocrine: No Loss of Vision: Denies Hearing Impairment: Denies Cancer: No Psychosocial: No Integumentary: No Blood Disorders: No Adverse Reaction/Blood Tranf: No Family Medical History Reviewed Nursing Family Hx Alzheimer's disease G8 BROTHER G8 SISTER Arthritis G8 BROTHER Cataracts G8 SISTER Dementia G8 SISTER Fibrocystic disease of breast G8 SISTER Hypertension 19 FATHER 19 MOTHER G8 BROTHER G8 BROTHER G8 SISTER G8 SISTER Kidney disease G8 BROTHER Heart Disease, Other Conditions/Hx Physical Exam Vital Signs Vital Signs - First Documented 12/23/17 09:29 Temp 96.1 Pulse 88 Resp 18 B/P (MAP) 108/73 (85) Pulse Ox 95 O2 Delivery Room Air Capillary Refill : Less Than 3 Seconds General Appearance: No Apparent Distress, WD/WN HEENT: PERRL/EOMI, Pharynx Normal Neck: Non Tender, Supple Respiratory: Lungs Clear, Normal Breath Sounds Cardiovascular: Regular Rate, Rhythm, No Murmur Gastrointestinal: Non Tender, Soft Neurologic/Psychiatric: Alert, Oriented x3 Skin: Normal Color, Warm/Dry Progress/Results/Core Measures Suspected Sepsis Recent Fever Within 48 Hours: No Infection Criteria Present: None New/Unexplained Altered Menta: No Sepsis Screen: No Definite Risk Sepsis Diagnosis: SIRS Temperature:96.1 Pulse: 88 Respiratory Rate: 18 Blood Pressure 108 /73 Mean: 85 Results/Orders My Orders Orders - PHOENIX GIBSON MD Cbc With Automated Diff (12/23/17 10:16) Comprehensive Metabolic Panel (12/23/17 10:16) Vital Signs/I&O Vital Sign - Last 12Hours 12/23/17 09:29 Temp 96.1 Pulse 88 Resp 18 B/P (MAP) 108/73 (85) Pulse Ox 95 O2 Delivery Room Air Capillary Refill : Less Than 3 Seconds Blood Pressure Mean: 85 Progress Note : Progress Note Seen and evaluated. We will check basic labs but will be discharged to outpatient MRI. I will review and patient will return afterwards to discuss lab results. Discharged home with return precautions. Patient verbalize understanding instructions and agreement with plan. Patient states that she feels better and back to normal now. Departure Impression Primary Impression: Labile blood pressure Disposition: HOME, SELF-CARE Condition: Improved Departure-Patient Inst. Decision time for Depature: 10:24 Referrals: SHYAM NORIEGA MD (PCP/Family) Primary Care Physician Patient Instructions: High Blood Pressure (DC), Low Blood Pressure (DC) Add. Discharge Instructions: All discharge instructions reviewed with patient and/or family. Voiced understanding. Continue home medications as previously prescribed. Follow-up with your doctor in a few days for recheck. Return after MRI for discussion of laboratory results. Return for worsening, fever, vomiting, weakness, breathing problems or other concerns as needed. PHOENIX GIBSON MD Dec 23, 2017 10:25
[2017-12-23 10:29] LABS: BASOPHILS % (AUTO) 1 % (0-10); EOSINOPHILS # (AUTO) 0.1 10^3/uL (0.0-0.3); EOSINOPHILS % (AUTO) 2 % (0-10); HEMATOCRIT 40 % (35-52); HEMOGLOBIN 13.3 G/DL (11.5-16.0); LYMPHOCYTES # (AUTO) 1.7 X 10^3 (1.0-4.0); LYMPHOCYTES % (AUTO) 25 % (12-44); MEAN CORPUSCULAR HEMOGLOBIN 34 PG (25-34); MEAN CORPUSCULAR HGB CONC 33 G/DL (32-36); MEAN CORPUSCULAR VOLUME 103 FL (80-99); MEAN PLATELET VOLUME 9.2 FL (7.4-10.4); MONOCYTES # (AUTO) 0.9 X 10^3 (0.0-1.0); MONOCYTES % (AUTO) 13 % (0-12); NEUTROPHILS % (AUTO) 60 % (42-75); PLATELET COUNT 350 10^3/uL (130-400); RED BLOOD COUNT 3.92 10^6/uL (4.35-5.85); RED CELL DISTRIBUTION WIDTH 13.7 % (10.0-14.5); WHITE BLOOD COUNT 6.6 10^3/uL (4.3-11.0)
[2017-12-23 10:30] VITALS: BP 117/70
[2017-12-23 10:48] LABS: ALBUMIN 4.5 GM/DL (3.2-4.5); BILIRUBIN,TOTAL 0.4 MG/DL (0.1-1.0); CALCIUM 9.9 MG/DL (8.5-10.1); POTASSIUM 4.2 MMOL/L (3.6-5.0); TOTAL PROTEIN 7.6 GM/DL (6.4-8.2)
== END 2017-12-23 10:28 | disposition home or self-care (01) ==
LOC: EDUNIT# 09:17 → ER 09:20
DX: I10 Essential (primary) hypertension (principal); E78.00 Pure hypercholesterolemia, unspecified; M06.9 Rheumatoid arthritis, unspecified; Z87.442 Personal history of urinary calculi; Z90.710 Acquired absence of both cervix and uterus; Z96.641 Presence of right artificial hip joint; Z98.890 Other specified postprocedural states
CPT/HCPCS: 36415; 80053; 85025; 99283

== ENCOUNTER → 2017-12-23 | Outpatient (CLI) | payer MEDICARE, OTHER ==
--- NOTE | 2017-12-23 12:19 | Diagnostic Imaging Report ---
PROCEDURE: MRI left upper extremity without contrast. TECHNIQUE: Multiplanar, multisequence non contrast-enhanced MRI of the left upper extremity was accomplished. INDICATION: Shoulder pain. COMPARISON: There are no previous MRI examinations available for comparison. The plain film examination of the left shoulder performed on 11/26/2017 failed to show any sign of an acute bony abnormality. FINDINGS: On the T2 coronal fat-saturated series of this exam there does appear to be a sizable tear of the supraspinatous muscle as it courses over the 10-11 o'clock position of the humeral head. The supraspinatous muscle in this area is bunched but not fully retracted. There is also a tear of the anterior third of the attachment of the rotator cuff. This may well be long-standing in nature. There is hypertrophy of the acromioclavicular joint and this does result in narrowing of the outlet for the torn supraspinatous muscle. Furthermore the humeral head does seem to be slightly subluxed superiorly with respect to its normal alignment with the glenoid. Most likely this is related to the injury to the supraspinatous muscle. There also appears to be a large tear of the superior half of the labrum. The biceps tendon as it courses over the humeral head is not well-visualized and may also be partially torn. Furthermore the axial images do show that there is a 1.3 x 2.5 cm area of increased signal within the musculature of the posterior deltoid muscle as it courses past the scapula. Most likely this represents a hematoma secondary to a partial tear of the muscle. The subscapularis tendon also appears to be partially torn at the same level. There is a moderate joint effusion present. There is no sign acute bony abnormality however. IMPRESSION: 1. The supraspinatous muscle has been severely torn and the muscle is bunched in the 10 to 11 o'clock position of the humeral head. 2. There is also long-standing tear of the rotator cuff anteriorly. 3. The humeral head is more superiorly positioned with respect to the glenoid than normally seen due to the injury to the supraspinatous muscle. There also appears to be a sizable injury to the superior half of the labrum and there may be a partial tear of the biceps tendon as well. 4. The areas of abnormal signal involving the posterior deltoid and subscapularis muscles do suggest that these muscles are partially torn also. 5. There is no acute bony abnormality noted. Dictated by: Dictated on workstation # [id number]
== END ==
LOC: RAD 10:36
PROVIDERS: ATTEND Nurse Practitioner Family
DX: S46.812A Strain of other muscles, fascia and tendons at shoulder and upper arm level, left arm, initial encounter (principal); M75.102 Unspecified rotator cuff tear or rupture of left shoulder, not specified as traumatic
CPT/HCPCS: 73221

== ENCOUNTER 2018-02-07 17:17 | Emergency (ER) | payer MEDICARE, OTHER ==
[~2018-02-07] VITALS: Ht 167.6 cm; Wt 78.0 kg
--- OUTSIDE RECORDS SUMMARY | 2018-02-07 17:59 | XMS REPORT | Continuity of Care Document ---
Author Author [facility] Organization [facility] Address Unknown Phone Unavailable Allergies Active Description Code Type Severity Reaction Onset Reported/Identified Relationship to Patient Clinical Status Yes codeine [id number] Drug Allergy Unknown N/A 10/27/2005 Yes Sulfa (Sulfonamide Antibiotics) [id number] Drug Allergy Unknown NAUSEA BOWEL NE 01/11/2014 Yes No Known Drug Allergies [id number] Drug Allergy Unknown N/A 03/20/2015 Medications There [...] V58.69 OT MED,LT,CURRENT USE 01/08/2014 JD SCOTT TABLET COATER Ot 338.29 OTHER CHRONIC PAIN 01/08/2014 JD [...] 11/03/2016 SHYAM NORIEGA MD Ot Z79.899 OTHER JEWEL STRIPPER (CURRENT) DRUG THERAPY 11/03/2016 SHYAM NORIEGA MD Ot Z96.641 PRESENCE OF RIGHT ARTIFICIAL HIP JOINT 11/04/2016 SHYAM NORIEGA MD Ot D72.819 DECREASED WHITE BLOOD CELL COUNT, UNSPEC 11/04/2016 SHYAM NORIEGA MD Ot E78.00 PURE HYPERCHOLESTEROLEMIA, UNSPECIFIED 11/04/2016 SHYAM NORIEGA MD Ot I10 ESSENTIAL (PRIMARY) HYPERTENSION 11/04/2016 SHYAM NORIEGA MD Ot J18.9 PNEUMONIA, UNSPECIFIED ORGANISM 11/04/2016 SHAYM NORIEGA MD Ot M06.9 RHEUMATOID ARTHRITIS, UNSPECIFIED 11/04/2016 SHYAM NORIEGA MD Ot R09.02 HYPOXEMIA 11/04/2016 SHYAM NORIEGA MD Ot R53.1 WEAKNESS 11/04/2016 SHYAM NORIEGA MD Ot Z79.899 OTHER RESIDENTIAL (CURRENT) DRUG THERAPY 11/04/2016 SHYAM NORIEGA MD Ot Z96.641 PRESENCE OF RIGHT ARTIFICIAL HIP JOINT 11/18/2016 JD SCOTT TABLET COATER Ot M25.512 PAIN IN LEFT SHOULDER 11/18/2016 JD SCOTT TABLET COATER Ot R05 COUGH 12/09/2016 JD SCOTT TABLET COATER Ot M25.512 PAIN IN LEFT SHOULDER 12/09/2016 JD SCOTT TABLET COATER Ot R05 COUGH 08/07/2017 JESSE ALBERTS APRN Ot E78.00 PURE HYPERCHOLESTEROLEMIA, UNSPECIFIED 08/07/2017 JESSE ALBERTS APRN Ot I10 ESSENTIAL (PRIMARY) HYPERTENSION 08/07/2017 JESSE ALBERTS APRN Ot L03.012 CELLULITIS OF LEFT FINGER 08/07/2017 JESSE ALBERTS APRN Ot M06.9 RHEUMATOID ARTHRITIS, UNSPECIFIED 08/07/2017 JESSE ALBERTS NEON GLASS BLOWER Ot M79.645 PAIN IN LEFT FINGER(S) 08/07/2017 JESSE ALBERTS APRN Ot Z82.49 FAMILY HX OF ISCHEM HEART DIS AND OTH DI 08/07/2017 JESSE ALBERTS NEON GLASS BLOWER Ot Z87.442 PERSONAL HISTORY OF URINARY CALCULI 08/07/2017 JESSE ALBERTS APRN Ot Z90.710 ACQUIRED ABSENCE OF BOTH CERVIX AND UTER 08/07/2017 JESSE ALBERTS APRN Ot Z96.641 PRESENCE OF RIGHT ARTIFICIAL HIP JOINT 09/01/2017 LEANN SANTIAGO, SHYAM Ortiz Ot 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 09/01/2017 LEANN SANTIAGO, SHYAM Ortiz Ot L03.012 CELLULITIS OF LEFT FINGER 09/23/2017 TABATHA EVANS NEON GLASS BLOWER Ot L03.90 CELLULITIS, UNSPECIFIED 09/25/2017 TABATHA EVANS NEON [place]ASS BLOWER Ot L03.90 CELLULITIS, UNSPECIFIED 10/11/2017 TABATHA EVANS NEON GLASS BLOWER Ot L03.90 CELLULITIS, UNSPECIFIED 11/26/2017 JULEE AVENDAÑO [...] CONTUSION OF LEFT SHOULDER, INITIAL ENCO 12/02/2017 AJROCHO JULEE Finley Ot S80.02XA CONTUSION OF LEFT [...] Ot 786.09 RESPIRATORY ABNORM NEC 12/21/2017 ROHAN OJYA MD Ot 786.50 CHEST PAIN NOS 12/21/2017 JD SCOTT Ot Z12.31 ENCNTR SCREEN MAMMOGRAM FOR MALIGNANT NE 12/21/2017 JD SCOTT Ot M25.512 PAIN IN LEFT SHOULDER 12/21/2017 JD SCOTTP Ot R05 COUGH 12/21/2017 SHYAM NORIEGA MD Ot 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 12/21/2017 SHYAM NORIEGA MD Ot L03.012 CELLULITIS OF LEFT FINGER 12/21/2017 NATHAN TABATHA Medhat NEON GLASS BLOWER Ot L03.90 CELLULITIS, UNSPECIFIED 12/23/2017 PHOENIX GIBSON MD, Ot E78.00 PURE HYPERCHOLESTEROLEMIA, UNSPECIFIED 12/23/2017 PHOENIX GIBSON MD Ot I10 ESSENTIAL (PRIMARY) HYPERTENSION 12/23/2017 PHOENIX GIBSON MD Ot M06.9 RHEUMATOID ARTHRITIS, UNSPECIFIED 12/23/2017 PHOENIX GIBSON MD Ot Z87.442 PERSONAL HISTORY OF URINARY CALCULI 12/23/2017 PHOENIX GIBSON MD Ot Z90.710 ACQUIRED ABSENCE OF BOTH CERVIX AND UTER 12/23/2017 PHOENIX GIBSON MD Ot Z96.641 PRESENCE OF RIGHT ARTIFICIAL HIP JOINT 12/23/2017 PHOENIX GIBSON MD Ot Z98.890 OTHER SPECIFIED POSTPROCEDURAL STATES 12/26/2017 JD SCOTT Ot M75.102 UNSP ROTATR-CUFF TEAR/RUPTR OF LEFT SHOU 12/26/2017 JD SCOTT Ot S46.812A STRAIN OF MUSC/FASC/TEND AT LDR/UP ARM 12/26/2017 PHOENIX GIBSON MD Ot E78.00 PURE HYPERCHOLESTEROLEMIA, UNSPECIFIED 12/26/2017 PHOENIX GIBSON MD, Ot I10 ESSENTIAL (PRIMARY) HYPERTENSION 12/26/2017 PHOENIX GIBSON MD, Ot M06.9 RHEUMATOID ARTHRITIS, UNSPECIFIED 12/26/2017 PHOENIX GIBSON MD Ot Z87.442 PERSONAL HISTORY OF URINARY CALCULI 12/26/2017 PHOENIX GIBSON MD Ot Z90.710 ACQUIRED ABSENCE OF BOTH CERVIX AND UTER 12/26/2017 PHOENIX GIBSON MD Ot Z96.641 PRESENCE OF RIGHT ARTIFICIAL HIP JOINT 12/26/2017 PHOENIX GIBSON MD Ot Z98.890 OTHER SPECIFIED POSTPROCEDURAL STATES 01/13/2018 JD SCOTT Ot M75.102 UNSP ROTATR-CUFF TEAR/RUPTR OF LEFT SHOU 01/13/2018 JD SCOTTP Ot S46.812A STRAIN OF MUSC/FASC/TEND AT LDR/UP ARM Procedures There is no data. Results Test [...] NRG Manual blood basophils/100 leukocytes 1 % NR Blood toxic granules detection by light microscopy 1+ [facility] Influenza virus A and B antigen detection - 11/01/16 10:55 FLU RESULT NEGATIVE FOR INFLUENZA A AND B ANTIGENS BY IA NR Blood lactic acid measurement (moles/volume) - 11/01/16 11:19 Blood lactic acid measurement (moles/volume) 0.9 mmol/L 0.5-2.0 Bacterial blood culture - 11/01/16 11:19 Bacterial blood culture NG [facility] Bacterial blood culture - 11/01/16 11:24 Bacterial [...] 19:38 Bacteria identification in wound by culture [id number] NRG QUANTITY OF GROWTH Moderate Growth NRG CALL POSITIVES (F1 HELP) MRSA CALLED TO P ARISTEO/ER 08/09 12:20 NRG Bacterial susceptibility panel - [...] plasma albumin measurement (mass/volume) 4.0 g/dL 3.2-4.5 Complete blood count (CBC) with automated white blood cell (WBC) differential - 12/23/17 10:19 Blood leukocytes automated count (number/volume) 6.6 10*3/uL 4.3-11.0 Blood erythrocytes automated count (number/volume) 3.92 10*6/uL 4.35-5.85 Venous blood hemoglobin measurement (mass/volume) 13.3 g/dL 11.5-16.0 Blood hematocrit (volume fraction) 40 % 35-52 Automated erythrocyte mean corpuscular volume 103 [foz_us] 80-99 Automated erythrocyte mean corpuscular hemoglobin (mass per erythrocyte) 34 pg 25-34 Automated erythrocyte mean corpuscular hemoglobin concentration measurement ( mass/volume) 33 g/dL 32-36 Automated erythrocyte distribution width ratio 13.7 % 10.0-14.5 Automated blood platelet count (count/volume) 350 10*3/uL 130-400 Automated blood platelet mean volume measurement 9.2 [foz_us] 7.4-10.4 Automated blood neutrophils/100 leukocytes 60 % 42-75 Automated blood lymphocytes/100 leukocytes 25 % 12-44 Blood monocytes/100 leukocytes 13 % 0-12 Automated blood eosinophils/100 leukocytes 2 % 0-10 Automated blood basophils/100 leukocytes 1 % 0-10 Blood neutrophils automated count (number/volume) 4.0 10*3 1.8-7.8 Blood lymphocytes automated count (number/volume) 1.7 10*3 1.0-4.0 Blood monocytes automated count (number/volume) 0.9 10*3 0.0-1.0 Automated eosinophil count 0.1 10*3/uL 0.0-0.3 Automated blood basophil count (count/volume) 0.0 10*3/uL 0.0-0.1 Comprehensive metabolic panel - 12/23/17 10:19 Serum or plasma sodium measurement (moles/volume) 143 mmol/L 135-145 Serum or plasma potassium measurement (moles/volume) 4.2 mmol/L 3.6-5.0 Serum or plasma chloride measurement (moles/volume) 105 mmol/L 98-107 Carbon dioxide 32 mmol/L 21-32 Serum or plasma anion gap determination (moles/volume) 6 mmol/L 5-14 Serum or plasma urea nitrogen measurement (mass/volume) 17 mg/dL 7-18 Serum or plasma creatinine measurement (mass/volume) 1.00 mg/dL 0.60-1.30 Serum or plasma urea nitrogen/creatinine mass ratio 17 NRG Serum or plasma creatinine measurement with calculation of estimated glomerular filtration rate 55 NRG Serum or plasma glucose measurement (mass/volume) 75 mg/dL 70-105 Serum or plasma calcium measurement (mass/volume) 9.9 mg/dL 8.5-10.1 Serum or plasma total bilirubin measurement (mass/volume) 0.4 mg/dL 0.1-1.0 Serum or plasma alkaline phosphatase measurement (enzymatic activity/volume) 61 U/L 40-136 Serum or plasma aspartate aminotransferase measurement (enzymatic activity/ volume) 24 U/L 5-34 Serum or plasma alanine aminotransferase measurement (enzymatic activity/volume ) 35 U/L 0-55 Serum or plasma protein measurement (mass/volume) 7.6 g/dL 6.4-8.2 Serum or plasma albumin measurement (mass/volume) 4.5 g/dL 3.2-4.5 Encounters ACCT No. Visit Date/Time Discharge Status Pt. Type Provider Facility Loc./Unit Complaint [id number] 12/23/2017 10:36:00 12/23/2017 23:59:59 CLS Outpatient JD SCOTT [facility] RAD LT SHOULDER PAIN [id number] 12/23/2017 09:20:00 12/23/2017 10:28:00 DIS Emergency PHOENIX GIBSON MD [facility] ER BP CONCERNS [id number] 11/26/2017 09:40:00 11/26/2017 11:46:00 DIS Emergency JULEE AVENDAÑO DO [facility] ER SHOULDER PAIN FROM FALL [id number] 09/15/2017 11:24:00 09/15/2017 23:59:59 CLS Outpatient TABATHA EVANS NEON GLASS BLOWER [facility] CELLULITIS [id number] 08/10/2017 13:38:00 08/10/2017 23:59:59 CLS Outpatient SHYAM NORIEGA MD [facility] CELLULITIS,MRSA FINGER 4TH DIGIT L HAND [id number] 08/07/2017 18:53:00 08/07/2017 19:54:00 DIS Emergency JESSE ALBERTS NEON GLASS BLOWER [facility] ER L HAND RING FINGER INJ [id number] 06/30/2017 08:24:00 06/30/2017 23:59:59 CLS Preadmit SHYAM NORIEGA MD [facility] RAD SCREENING [id number] 11/18/2016 16:07:00 11/18/2016 23:59:59 CLS Outpatient JD SCOTT [facility] RAD LT SHOULDER/ HUMERUS PAIN,COUGH [id number] 11/01/2016 11:08:00 11/04/2016 13:05:00 DIS Inpatient SHYAM NORIEGA MD [facility] 4TH PNEUMONIA; HYPOXIA [id number] 06/23/2016 08:40:00 06/23/2016 23:59:59 CLS Outpatient JD SCOTT [facility] RAD SCREENING [id number] 03/20/2015 14:44:00 03/21/2015 16:32:00 DIS Inpatient SHYAM NORIEGA MD [facility] 4TH ACUTE RENAL FAILURE/ HYPERTENSION [id number] 11/05/2014 10:34:00 11/05/2014 23:59:59 CLS Outpatient ROHAN JOYA MD [facility] CARD CP,DYSPNEA,HTN, PALPITATION [id number] 11/01/2014 14:10:00 11/01/2014 23:59:59 CLS Outpatient ROHAN JOYA MD [facility] CARD CP,DYSPNEA,PALPITATIONS [id number] 10/03/2014 10:12:00 10/03/2014 12:55:00 DIS Emergency LINDA PRICE MD [facility] ER ABD PAIN/ELEV BP [id number] 09/26/2014 12:48:00 09/26/2014 23:59:59 CLS Outpatient SHYAM NORIEGA MD [facility] RAD ABDOMINAL PAIN DIARRHEA [id number] 09/25/2014 12:37:00 09/25/2014 23:59:59 CLS Outpatient SHYAM NORIEGA MD [facility] LAB ELEVATED LFT,ABD PAIN ,DIARRHEA [id number] 09/09/2014 13:09:00 09/09/2014 14:17:00 DIS Outpatient ADITYA PERLA MD [facility] CARD LUMBAR SPONDOLOYSIS [id number] 07/26/2014 08:23:00 07/26/2014 09:27:00 DIS Outpatient ADITYA PERLA MD [facility] CARD DEGENERATIVE DISC DISEASE LUMBAR [id number] 06/14/2014 09:30:00 06/14/2014 23:59:59 CLS Outpatient JD SCOTT [facility] RAD SCREENING [id number] 05/03/2014 07:30:00 05/03/2014 08:17:00 DIS Outpatient ADITYA PERLA MD [facility] CARD LUMBAR SPONDYLOSIS [id number] 03/18/2014 12:52:00 03/18/2014 14:24:00 DIS Outpatient ADITYA PERLA MD [facility] CARD DEGENERATIVE DISC DISEASE LUMBAR [id number] 03/07/2014 18:36:00 03/07/2014 21:07:00 DIS Emergency NOREEN CARR DO [facility] ER R ELBOW INJ [id number] 01/11/2014 11:23:00 01/11/2014 23:59:59 [facility] DIVERTICULITIS [id number] 12/17/2013 10:41:00 01/08/2014 11:12:00 DIS Outpatient JD SCOTT [facility] REHAB CHRONIC BACK PAIN , RT LEG PAIN [id number] 01/07/2014 12:26:00 01/07/2014 23:59:59 CLS Outpatient SHYAM NORIEGA MD [facility] RAD ABD PAIN,BACK PAIN [id number] 12/24/2013 12:08:00 12/24/2013 23:59:59 CLS Outpatient ADITYA PERLA MD [facility] RAD KNEE PAIN R [id number] 11/16/2013 08:13:00 11/16/2013 09:04:00 DIS Outpatient ADTIYA PERLA MD [facility] CARD LUMBAGO [id number] 11/01/2013 19:13:00 11/01/2013 21:19:00 DIS Emergency JULEE AVENDAÑO DO [facility] ER L ARM NUMBNESS [id number] 07/20/2013 08:47:00 07/20/2013 23:59:59 CLS Outpatient NICOLE BUTTS DO [facility] RAD CERVICAL RADICULOPATHY [id number] 06/11/2013 08:28:00 06/11/2013 23:59:59 CLS Outpatient ESTER BLANCA MD [facility] RAD SCREENING [id number] 06/11/2013 08:21:00 06/11/2013 23:59:59 CLS Outpatient LEANN SANTIAGO, SHYAM Ortiz [facility] RAD LT LUNG NODULE,F/U [id number] 01/03/2015 20:45:00 Document Registration [id number] 01/10/2013 17:36:00 Document Registration [id number] 11/01/2012 11:06:00 Document Registration [id number] 10/30/2012 11:05:00 Document Registration [id number] 08/08/2017 09:33:00 08/08/2017 23:59:59 CLS Outpatient
[2018-02-07] MEDS ORDERED: TETANUS,DIPTH,PERTUSS P/F (BOOSTRIX) 0.5 ML VIAL IM ONE (19:00)
--- NOTE | 2018-02-07 19:11 | ED Head Injury ---
General Chief Complaint: Head/Cervical Problems Stated Complaint: FALL;HEAD INJ Nursing Triage Note: PT STATES FELL AND HIT HEAD, DENIES LOC, HAS APPROX 2CM LAC TO R SIDE OF HEAD. Source: patient Exam Limitations: no limitations History of Present Illness Date Seen by Provider: February 07, 2018 Time Seen by Provider: 18:35 Initial Comments PT ARRIVES VIA POV FROM HOME STATES SHE TRIPPED OVER DOG BEHIND HER, AND FELL BACKWARD, BODY HIT THE GRAVEL, BUT HER HEAD HIT CONCRETE--HAS LACERATION TO RIGHT SIDE OF HEAD OCCURRED AT 1600 TODAY NO LOSS OF CONSCIOUSNESS STATES HER NECK FEELS STIFF AND SORE HAS CHRONIC BACK PAIN AND IS NO DIFFERENT THAN NORMAL NO VISION CHANGES NO PARESTHESIAS OR MOTOR DEFICITS NO NAUSEA/VOMITING + HEADACHE + DIZZINESS-MILD HAS CHRONIC GENERALIZED PAIN AND JOINT PAINS--NO CHANGE FROM NORMAL --IS TO HAVE LEFT SHOULDER SURGERY ON TUESDAY THIS WEEK 02/09/[address] STOCKTON AT [facility] PT IS NOT UP TO DATE ON TETANUS PCP: DR. NORIEGA Allergies and Home Medications Allergies Coded Allergies: No Known Drug Allergies (Unverified , 03/20/15) Home Medications Amlodipine Besylate 5 Mg Tablet, 5 MG PO DAILY, (Reported) Cholecalciferol (Vitamin D3) 2,000 Unit Capsule, 2,000 UNIT PO HS, (Reported) Diclofenac Sodium 75 Mg Tablet.dr, 75 MG PO BID, (Reported) Doxycycline Hyclate 100 Mg Capsule, 100 MG PO BID Prescribed by: JESSE ALBERTS on 08/07/171944 Duloxetine Hcl 30 Mg Cap, 30 MG PO DAILY, (Reported) Estradiol 0.5 Mg Tablet, 0.5 MG PO DAILY, (Reported) Ezetimibe 10 Mg Tablet, 10 MG PO DAILY, (Reported) Fenofibrate Nanocrystallized 145 Mg Tablet, 145 MG PO DAILY, (Reported) Fluticasone/Salmeterol 12 Gm Hfa.aer.ad, 2 PUFF IH BID@ Prescribed by: SHYAM NORIEGA on 11/04/16 0946 Folic Acid 1 Mg Tablet, 1 MG PO DAILY, (Reported) Gabapentin 100 Mg Capsule, 200 MG PO DAILY, (Reported) TAKES 2 (100MG) CAPSULES Gabapentin 100 Mg Capsule, 300 MG PO HS, (Reported) TAKES 3 (100MG) CAPSULES Hydrocodone Bit/Acetaminophen 1 Each Tablet, 1 TAB PO BID, (Reported) Hydrocodone/Acetaminophen 1 Each Tablet, 1 TAB PO Q6H PRN for MODERATE PAIN, ( Reported) Hyoscyamine Sulfate 0.375 Mg Tab.er.12h, 0.375 MG PO BID, (Reported) Infliximab 100 Mg Soln, 300 MG IV EVERY 8 WEEKS, (Reported) Lactobacillus Combination No.9 1 Each Capsule, 1 EACH PO TID Prescribed by: SHYAM NORIEGA on 11/04/16945 Levofloxacin 500 Mg Tablet, 500 MG PO DAILY Prescribed by: SHYAM NORIEGA on 11/04/16945 Methotrexate Sodium 2.5 Mg Tablet, 15 MG PO We, (Reported) TAKES 6 (2.5MG) TABLETS Nitrofurantoin Macrocrystal 50 Mg Capsule, 50 MG PO HS, (Reported) Olmesartan Medoxomil 40 Mg Tablet, 40 MG PO DAILY, (Reported) Omeprazole 20 Mg Capsule.dr, 20 MG PO BID, (Reported) Ropinirole Hcl 0.5 Mg Tablet, 0.5 MG PO HS, (Reported) Sulfamethoxazole/Trimethoprim 1 Each Tablet, 1 EACH PO BID Prescribed by: JULEE AVENDAÑO on 02/07/181947 Patient Home Medication List Home Medication List Reviewed: Yes Review of Systems Constitutional: see HPI, dizziness Eyes: No Symptoms Reported Ears, Nose, Mouth, Throat: no symptoms reported Respiratory: no symptoms reported Cardiovascular: no symptoms reported Gastrointestinal: no symptoms reported Genitourinary: no symptoms reported Musculoskeletal: see HPI Skin: see HPI Psychiatric/Neurological: See HPI; Denies Cognitive Dysfunction; Headache; Denies Numbness, Denies Tingling Endocrine: No Symptoms Reported Hematologic/Lymphatic: No Symptoms Reported Past Sxevbst-Ifpozp-Iqkpxh Hx Patient Social History Alcohol Use: Denies Use Recreational Drug Use: No Smoking Status: Never a Smoker 2nd Hand Smoke Exposure: No Recent Foreign Travel: No Contact w/Someone Who Travel: No Recent Infectious Disease Expo: No Recent Hopitalizations: No Physical Abuse: No Sexual Abuse: No Immunizations Up To Date Tetanus Booster (TDap): Unknown PED Vaccines UTD: No Date of Pneumonia Vaccine: Nov 02, 2012 Date of Influenza Vaccine: Jun 19, 2016 Seasonal Allergies Seasonal Allergies: No Past Medical History Surgeries: Yes (MULTIPLE ORTHOPEDIC SURGERIES) Breast, Gallbladder, Hysterectomy, Joint Replacement, Orthopedic, Renal Respiratory: No Cardiac: Yes High Cholesterol, Hypertension Neurological: No 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 Disorders: No Female 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 Disorders: 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, 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 Sexually Transmitted Disease: No HIV/AIDS: No Genitourinary: Yes Kidney Stones, UTI-Chronic Gastrointestinal: Yes Diverticulosis Musculoskeletal: Yes (CHRONIC GENERALIZED PAIN AND JOINT PAIN ; CHRONIC NECK PAIN) Degenerate Disk Disease, Arthritis, Rheumatoid Arthritis, Chronic Back Pain Endocrine: No HEENT: No Loss of Vision: Denies Hearing Impairment: Denies Cancer: No Psychosocial: No Nursing Suicide Risk Score: 0 Integumentary: Yes (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--PICC LINE WITH 50 DAYS OF ANTIBIOTICS) Blood Disorders: No Adverse Reaction/Blood Tranf: No Family Medical History Alzheimer's disease G8 BROTHER G8 SISTER Arthritis G8 BROTHER Cataracts G8 SISTER Dementia G8 SISTER Fibrocystic disease of breast G8 SISTER Hypertension 19 FATHER 19 MOTHER G8 BROTHER G8 BROTHER G8 SISTER G8 SISTER Kidney disease G8 BROTHER No Family History of: AIDS Abdominal aortic aneurysm Wallace's disease Alcoholism Aphasia Asthma Cancer of mouth Cardiovascular disease Colon cancer Completed stroke Congenital disease Congenital heart disease Coronary thrombosis Cystic fibrosis Diabetes mellitus Drug abuse Dysphasia Gastroenteritis Glaucoma Headache disorder Hypercholesterolemia Infertility Myocardial infarction Neoplasm Not obtainable due to adoption Osteoporosis Parkinson's disease Prostate cancer Psychosocial problem Respiratory disorder Seizure disorder Severe allergy Thyroid disease Tuberculosis Visual disorder Heart Disease, Other Conditions/Hx Physical Exam Vital Signs Vital Signs - First Documented 02/07/18 02/07/18 17:45 20:00 Temp 97.5 Pulse 82 Resp 18 B/P (MAP) 121/61 (81) Pulse Ox 94 O2 Delivery Room Air Capillary Refill : Less Than 3 Seconds General Appearance: WD/WN, no apparent distress HEENT: PERRL/EOMI, normal ENT inspection, TMs normal, pharynx normal, other ( 2.5 CM LACERATION TO RIGHT POSTERIOR PARIETAL AREA) Neck: tender lateral, tender midline Cardiovascular: regular rate, rhythm, no murmur Respiratory: chest non-tender, normal breath sounds, no respiratory distress, no accessory muscle use Gastrointestinal: normal bowel sounds, non tender, soft Back: normal inspection, no CVA tenderness Extremities: normal range of motion, non-tender, normal inspection, no pedal edema, no calf tenderness, normal capillary refill Psychiatric: alert, oriented x 3 Crainal Nerves: normal hearing, normal speech, PERRL Coordination/Gait: normal gait Motor/Sensory: no motor deficit, no sensory deficit, no pronator drift Skin: normal color, warm/dry, other (LACERATION NOTED ABOVE) [place] Coma Score Best Eye Response: (4) Open Spontaneously Best Verbal Response: (5) Oriented Best Motor Response: (6) Obeys Commands Madelyn Total: 15 Procedures/Interventions Other Wound Location RIGHT POSTERIOR PARIETAL AREA Wound Length (cm): 2.5 Wound's Depth, Shape: linear, sub Q Wound Explored: clean Betadine Prep?: No (CLEANSED WITH BETASEPT AND SALINE) Anesthesia: Lidocaine w/ Epi (2%) Staple Repair: Stapler 35W (#5) Progress/Results/Core Measures Results/Orders My Orders Orders - JULEE AVENDAÑO DO Ct Head/Cervical Spine Wo (02/07/18 18:36) Dipht,Pertuss(Acell),Tet Adult (Boostrix (02/07/18 19:00) Lidocaine/Epi 2% 1:100,000 (Xylocaine/Ep (02/07/18 19:45) Medications Given in ED Current Medications Medications Dose Ordered Sig/Arcenio Route Start Time Stop Time Status Last Admin Dose Admin Lidocaine/ Epinephrine 20 ml ONCE ONCE INJ 02/07/18 19:45 02/07/18 19:47 DC 02/07/18 19:45 20 ML Vital Signs/I&O 02/07/18 20:00 Temp 97.5 Pulse 76 Resp 18 B/P (MAP) 121/71 (81) Pulse Ox 93 O2 Delivery Room Air Blood Pressure Mean: [address] HEAD/CERVICAL SPINE--NO ACUTE PROCESS, CHRONIC DEGENERATIVE CHANGES OF CERVICAL SPINE PER RADIOLOGIST REPORT @ 1935 Reviewed: Reviewed by Me Departure Impression Primary Impression: Closed head injury without loss of consciousness Additional Impressions: Scalp laceration CERVICAL SPINE STRAIN EXACERABATION OF CHRONIC NECK PAIN Lascuxcrpr-qzzdmtrpx-tudxovc (DPT) vaccination administered at current visit Disposition: 01 HOME, SELF-CARE Condition: Stable Departure-Patient Inst. Referrals: SHYAM NORIEGA MD (PCP/Family) Primary Care Physician Patient Instructions: Cervical Muscle Strain (DC), Diphtheria and Tetanus Toxoids, and Acellular Pertussis Vaccine, Laceration Repair With [place] (DC), Minor Head Injury (DC) Add. Discharge Instructions: ICE TO AREA AT 20 MINUTE INTERVALS CLEAN WOUND TWICE A DAY WITH ANTIBACTERIAL SOAP AND WATER, OTHERWISE KEEP CLEAN AND DRY TYLENOL NEEDED FOR PAIN ARNAUD OUT IN 10 DAYS--RETURN TO ER FOR REMOVAL All discharge instructions reviewed with patient and/or family. Voiced understanding. Scripts Sulfamethoxazole/Trimethoprim (Bactrim Ds Tablet) 1 Each Tablet 1 EACH PO BID, #20 TAB Prov: JULEE AVENDAÑO DO 02/07/18 JULEE AVENDAÑO DO February 07, 2018 19:10
--- NOTE | 2018-02-07 19:34 | Diagnostic Imaging Report ---
PROCEDURE: CT head and CT cervical spine without contrast. TECHNIQUE: Multiple contiguous axial images were obtained through the brain and cervical spine without the use of intravenous contrast. Sagittal and coronal reformations through the cervical spine were then performed. INDICATION: Fall with head and neck injury with headache and dizziness and posterior neck pain. Comparison is made with prior CT from 11/26/2017. CT head: The ventricles and sulci are within normal limits. No sulcal effacement, midline shift or hemorrhage is detected. The cisterns are patent. The visualized paranasal sinuses are clear. IMPRESSION: No acute intracranial process is detected. CT cervical spine: There is reversal of the normal cervical lordotic curvature. Minimal anterolisthesis of C4 on C5 with retrolisthesis of C6 on C7 similar to prior. Significant degenerative disc disease at the C4-5, C5-6 and C6-7 levels is again noted, with disc space narrowing and marginal spurring. Multilevel facet arthropathy is also present. No fracture is seen. The prevertebral tissues are within normal limits. Odontoid appears intact. IMPRESSION: Cervical spondylosis and listhesis. No acute bony abnormality is detected. Dictated by: Dictated on workstation # [id number]
[2018-02-07] MEDS ORDERED: LIDOCAINE/EPI 2% 1:100,00 (XYLOCAINE) 20 ML VIAL INJ ONE (19:45)
[2018-02-07] MEDS ORDERED: SULF1TAB35 PO (19:48)
[2018-02-07 20:00] VITALS: BP 121/71
== END 2018-02-07 20:00 | disposition home or self-care (01) ==
LOC: EDUNIT# 17:17 → ER 17:19
DX: S09.90XA Unspecified injury of head, initial encounter (principal); S01.01XA Laceration without foreign body of scalp, initial encounter; S16.1XXA Strain of muscle, fascia and tendon at neck level, initial encounter; G89.29 Other chronic pain; R40.2142 Coma scale, eyes open, spontaneous, at arrival to emergency department; R40.2252 Coma scale, best verbal response, oriented, at arrival to emergency department; R40.2362 Coma scale, best motor response, obeys commands, at arrival to emergency department; E78.00 Pure hypercholesterolemia, unspecified; I10 Essential (primary) hypertension; M06.9 Rheumatoid arthritis, unspecified; Z23 Encounter for immunization; Z87.442 Personal history of urinary calculi; Z90.710 Acquired absence of both cervix and uterus; W18.31XA Fall on same level due to stepping on an object, initial encounter
CPT/HCPCS: 12011; 70450; 72125; 90471; 90715

== ENCOUNTER → 2018-03-28 | Outpatient (CLI) | payer MEDICARE, OTHER ==
[~2018-03-28] MED LIST changes: -METH2.5T PO; +MTX2.5T PO; +SULF1TAB35 PO
--- NOTE | 2018-03-28 16:48 | Diagnostic Imaging Report ---
INDICATION: Cough. FINDINGS: The heart size is within normal limits and stable when compared to 11/26/2017. The crowded bronchovascular markings in the right infrahilar region seen on the previous study are again evident and no different. The lungs are clear. There is no sign of failure, pneumonia, or pleural effusion to indicate an acute abnormality. The small area of increased density overlying the left upper lung seen previously is also unchanged. This finding was present on the prior exam of 11/22/2014 and is probably secondary to bony overgrowth. The mediastinum is not widened. The osseous structures are intact. In the interval since the prior exam, the patient has undergone a total shoulder arthroplasty procedure on the left. IMPRESSION: There is no evidence for active disease. When compared to the prior study, there has been no significant change. Dictated by: Dictated on workstation # [id number]
== END ==
LOC: RAD 14:15
PROVIDERS: ATTEND Nurse Practitioner Family
DX: R05 Cough (principal)
CPT/HCPCS: 71046

== ENCOUNTER → 2018-03-31 | Outpatient (CLI) | payer MEDICARE, OTHER ==
--- NOTE | 2018-03-31 10:58 | Diagnostic Imaging Report ---
Indication: Routine screening. Comparison is made with prior exam from 06/23/2016 and 06/14/2014. 2-D and 3-D bilateral screening mammography was performed with CAD. Scattered fibroglandular densities are identified bilaterally. Benign calcifications on the right are stable. Tiny nodular densities in both breasts appear stable. No spiculated mass or malignant-appearing microcalcifications are seen. The axillae are unremarkable. Impression: BI-RADS category 2 No mammographic features suspicious for malignancy are identified. ACR BI-RADS Category 2: Benign findings. Result letter will be mailed to the patient. Note: At least 10% of breast cancer is not imaged by mammography. Dictated by: Dictated on workstation # [id number]
== END ==
LOC: RAD 09:25
PROVIDERS: ATTEND Nurse Practitioner Family
DX: Z12.31 Encounter for screening mammogram for malignant neoplasm of breast (principal); R05 Cough
CPT/HCPCS: 77067

== ENCOUNTER 2018-10-23 14:27 | Outpatient (CLI) | payer MEDICARE, OTHER ==
[~2018-10-23] VITALS: Ht 170.2 cm; Wt 72.6 kg
[2018-10-23 14:32] VITALS: BP 132/71
[2018-10-23] MEDS ORDERED: NS IV 1000 ML 1,000 ML IV NR (14:45)
[2018-10-23] MEDS ORDERED: ONDANSETRON 4 MG/2 ML (SDV) Z0FRAN IV PRN (15:00)
[2018-10-23] MEDS ORDERED: metroNIDAZOLE 500MG/100ML IVPB 100 ML IV ONE (15:00)
[2018-10-23] MEDS ORDERED: CIPROFLOXACIN IV 400MG/200ML 200 ML IV ONE (15:00)
[2018-10-23 15:04] LABS: HEMOGLOBIN 11.5 G/DL (11.5-16.0); MEAN PLATELET VOLUME 9.4 FL (7.4-10.4); RED CELL DISTRIBUTION WIDTH 16.4 % (10.0-14.5); WHITE BLOOD COUNT 4.8 10^3/uL (4.3-11.0)
[2018-10-23 15:30] LABS: ALBUMIN 4.1 GM/DL (3.2-4.5); BILIRUBIN,TOTAL 0.3 MG/DL (0.1-1.0); CALCIUM 10.3 MG/DL (8.5-10.1); CREATININE SERUM 1.3 MG/DL (0.60-1.30); POTASSIUM 3.3 MMOL/L (3.6-5.0)
== END 2018-10-23 18:00 | disposition home or self-care (01) ==
LOC: SDC 14:27
PROVIDERS: ATTEND Nurse Practitioner Family
DX: R11.2 Nausea with vomiting, unspecified (principal); R19.7 Diarrhea, unspecified
CPT/HCPCS: 36415; 80053; 85027; 96360; 96361

== ENCOUNTER → 2019-04-05 | Outpatient (CLI) | payer MEDICARE, OTHER ==
[~2019-04-05] MED LIST changes: +ALPR0.25 PO; +CALCIUM PO; +CELE200C PO; +DICL100G18 TP; +DULO30CA48 PO; +EZET10TA49 PO; +FENO145T37 PO; +FLUT9.9S NSEACH; +HOLD METFORMIN - RECEIVED CONTRAST 20 ML VIAL IV SCH; +IOHEXOL 350 MG/ML 100 ML (OMNIPAQUE 350) VIAL IV ONE; +LAMISIL PO; +LINA72CA PO; +NS 100 ML (IVPB) BAG IV ONE; +ROPI1TAB40 PO; +SCOP1PAT17 TD; +TRAZ-222 PO; +VITAMIN C
[2019-04-05 11:16] LABS: CREATININE SERUM 1.13 MG/DL (0.60-1.30)
--- NOTE | 2019-04-05 12:04 | Diagnostic Imaging Report ---
PROCEDURE: CT angiography of the chest with contrast. TECHNIQUE: Multiple contiguous axial images were obtained through the chest after uneventful bolus administration of intravenous contrast. 2D reconstructed CTA MIP acquisitions were also performed. Auto Exposure Controls were utilized during the CT exam to meet ALARA standards for radiation dose reduction. INDICATION: Shortness of breath upon exertion. COMPARISON: Correlation is made with conventional CT chest from 11/22/2014. FINDINGS: Evaluation of the pulmonary arterial system is without thromboembolism. No filling defects are seen within central, lobar or segmental branches. Thoracic aorta is normal caliber. There is no dissection identified. No definite axillary, hilar or mediastinal lymphadenopathy is seen. There is no pericardial or pleural fluid detected. There is minimal scarring or subsegmental atelectasis in right middle lobe and lingula. No infiltrates or masses are seen. Upper abdomen is unremarkable. IMPRESSION: Unremarkable CT angiogram of the chest. There is no evidence of pulmonary embolism or thoracic aortic dissection. Dictated by: Dictated on workstation # [id number]
== END ==
LOC: RAD 10:34
PROVIDERS: ATTEND Nurse Practitioner Family
DX: R06.02 Shortness of breath (principal)
CPT/HCPCS: 36415; 71275; 82565; 84520

== ENCOUNTER 2019-04-22 14:09 | Emergency (ER) | payer OTHER, MEDICARE ==
[~2019-04-22] VITALS: Ht 170.2 cm; Wt 69.4 kg
[~2019-04-22 14:09] MED LIST changes: -DULO30CA48 PO; +DULO30CA49 PO; -HOLD METFORMIN - RECEIVED CONTRAST 20 ML VIAL IV SCH; -IOHEXOL 350 MG/ML 100 ML (OMNIPAQUE 350) VIAL IV ONE; -NS 100 ML (IVPB) BAG IV ONE; -OMEP20CA12 PO; +OMEP20CA13 PO
--- NOTE | 2019-04-22 14:25 | ED Head Injury ---
General Chief Complaint: Head/Cervical Problems Stated Complaint: 2 CANS FELL ON HEAD Nursing Triage Note: pt was reaching up to grab a can of wasp spray at the store et two cans fell off the shelf. One hitting her on the top of the head and one on the bridge of her nose. Pt states that the right side of her head is hurting. Pain is 4/10. Pt did not lose consciousness. C/O right sided blurry vision. Pt is tearful. Source: patient Exam Limitations: no limitations History of Present Illness Date Seen by Provider: Apr 22, 2019 Time Seen by Provider: 14:23 Initial Comments To ER with reports of a headache after drinking a wasp spray fell from about 2 feet above her head onto her head. She scared of her brain bleed. She has pain in this location now. She is not on anticoagulation. No loss of consciousness. Occurred: just prior to arrival Severity: moderate Location: parietal Loss of Consciousness: no loss of consciousness Associated Systoms: Headaches Allergies and Home Medications Allergies Coded Allergies: No Known Drug Allergies (Unverified , 03/20/15) Home Medications Alprazolam 0.25 Mg Tablet, 0.25 MG PO Q6H, (Reported) Amlodipine Besylate 5 Mg Tablet, 5 MG PO DAILY, (Reported) Celecoxib 200 Mg Capsule, 200 MG PO BID, (Reported) Cholecalciferol (Vitamin D3) 2,000 Unit Capsule, 2,000 UNIT PO HS, (Reported) Diclofenac Sodium 75 Mg Tablet.dr, 2 TAB PO BID, (Reported) Diclofenac Sodium 100 Gm Gel..gram., 100 GM TP QID, (Reported) Duloxetine HCl 30 Mg Capsule.dr, 30 MG PO DAILY, (Reported) Estradiol 0.5 Mg Tablet, 0.25 MG PO BID, (Reported) TAKES ONE HALF OF 0.5 MG TAB TWICE A DAY Ezetimibe 10 Mg Tablet, 10 MG PO DAILY, (Reported) Fenofibrate Nanocrystallized 145 Mg Tablet, 145 MG PO DAILY, (Reported) Fluticasone Propionate 9.9 Ml [place].susp, 1 SPRAY NSEACH BID, (Reported) 1 SPRAY EACH NARE DAILY Fluticasone/Salmeterol 12 Gm Hfa.aer.ad, 2 PUFF IH BID@08,20 Prescribed by: SHYAM NORIEGA on 11/04/16 0946 Gabapentin 100 Mg Capsule, 2 CAP PO DAILY, (Reported) TAKES TWO CAPSULES PO EVERY MORNING FOR TOTAL OF 200 MG Gabapentin 100 Mg Capsule, 4 CAP PO HS, (Reported) TAKES 4 CAPSULES DAILY AT BEDTIME DAILY FOR TOTAL OF 400 MG. Hydrocodone/Acetaminophen 1 Each Tablet, 1 TAB PO Q4H PRN for MODERATE PAIN, (Reported) Hyoscyamine Sulfate 0.375 Mg Tab.er.12h, 0.375 MG PO BID, (Reported) Infliximab 100 Mg Soln, 300 MG IV EVERY 8 WEEKS, (Reported) Linaclotide 72 Mcg Capsule, 72 MCG PO DAILY, (Reported) Methotrexate Tablet 2.5 Mg Tablet, 15 MG PO We, (Reported) TAKES 6 (2.5MG) TABLETS Nitrofurantoin Macrocrystal 50 Mg Capsule, 50 MG PO DAILY, (Reported) Olmesartan Medoxomil 40 Mg Tablet, 40 MG PO DAILY, (Reported) Omeprazole 20 Mg Capsule.dr, 20 MG PO BID, (Reported) Ropinirole HCl 1 Mg Tablet, 1 MG PO DAILY, (Reported) Scopolamine 1 Each Patch.td.3, 1 PATCH TD UD, (Reported) CHANGE EVERY 72 HRS Trazodone HCl 50 Mg Tablet, 75 MG PO HS, (Reported) TAKES 1.5 TABS FOR TOTAL DOSE OF 75 MG PO AT HS [Lamisil] , 250 MG PO DAILY, (Reported) Patient Home Medication List Home Medication List Reviewed: Yes Review of Systems Review of Systems Constitutional: see HPI Eyes: No Symptoms Reported Ears, Nose, Mouth, Throat: no symptoms reported Respiratory: no symptoms reported Cardiovascular: no symptoms reported Genitourinary: no symptoms reported Musculoskeletal: see HPI Skin: no symptoms reported Psychiatric/Neurological: No Symptoms Reported Past Spolmyf-Lssrdn-Rdqxdr Hx Patient Social History 2nd Hand Smoke Exposure: No Recent Foreign Travel: No Contact w/Someone Who Travel: No Recent Infectious Disease Expo: No Recent Hopitalizations: No Immunizations Up To Date Tetanus Booster (TDap): Unknown PED Vaccines UTD: No Date of Pneumonia Vaccine: Nov 02, 2012 Date of Influenza Vaccine: Jun 19, 2016 Seasonal Allergies Seasonal Allergies: No Past Medical History Surgeries: Yes (MULTIPLE ORTHOPEDIC SURGERIES) Breast, Gallbladder, Hysterectomy, Joint Replacement, Orthopedic, Renal Respiratory: No Cardiac: Yes High Cholesterol, Hypertension Neurological: No 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 Disorders: No 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, 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 Sexually Transmitted Disease: No HIV/AIDS: No Genitourinary: Yes Kidney Stones, UTI-Chronic Gastrointestinal: Yes Diverticulosis Musculoskeletal: Yes (CHRONIC GENERALIZED PAIN AND JOINT PAIN ; CHRONIC NECK PAIN) Degenerate Disk Disease, Arthritis, Rheumatoid Arthritis, Chronic Back Pain Endocrine: No HEENT: No Loss of Vision: Denies Hearing Impairment: Denies Cancer: No Psychosocial: No Integumentary: Yes (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--PICC LINE WITH 50 DAYS OF ANTIBIOTICS) Blood Disorders: No Adverse Reaction/Blood Tranf: No Family Medical History Alzheimer's disease G8 BROTHER G8 SISTER Arthritis G8 BROTHER Cataracts G8 SISTER Dementia G8 SISTER Fibrocystic disease of breast G8 SISTER Hypertension 19 FATHER 19 MOTHER G8 BROTHER G8 BROTHER G8 SISTER G8 SISTER Kidney disease G8 BROTHER No Family History of: AIDS Abdominal aortic aneurysm [place]'s disease Alcoholism Aphasia Asthma Cancer of mouth Cardiovascular disease Colon cancer Completed stroke Congenital disease Congenital heart disease Coronary thrombosis Cystic fibrosis Diabetes mellitus Drug abuse Dysphasia Gastroenteritis Glaucoma Headache disorder Hypercholesterolemia Infertility Myocardial infarction Neoplasm Not obtainable due to adoption Osteoporosis Parkinson's disease Prostate cancer Psychosocial problem Respiratory disorder Seizure disorder Severe allergy Thyroid disease Tuberculosis Visual disorder Heart Disease, Other Conditions/Hx Physical Exam Vital Signs Vital Signs - First Documented 04/22/19 14:13 Temp 97.9 Pulse 79 Resp 20 B/P (MAP) 143/72 (95) Pulse Ox 100 O2 Delivery Room Air Capillary Refill : Less Than 3 Seconds Height, Weight, BMI Height: 5'7.00" Weight: 153lbs. 0.0oz. 69.473112ke; 26.3 BMI Method:Stated General Appearance: WD/WN, no apparent distress HEENT: PERRL/EOMI, normal ENT inspection, TMs normal, other (No scalp laceration hematoma or sign of injury. There is no bruising or swelling to the bridge of the nose as she suggests) Neck: non-tender, full range of motion Respiratory: no respiratory distress, no accessory muscle use Extremities: normal range of motion, non-tender Psychiatric: alert, oriented x 3 Crainal Nerves: normal hearing, normal speech, PERRL Skin: normal color, warm/dry Madelyn Coma Score Best Eye Response: (4) Open Spontaneously Best Verbal Response: (5) Oriented Best Motor Response: (6) Obeys Commands Madelyn Total: 15 Progress/Results/Core Measures Results/Orders Vital Signs/I&O 04/22/19 14:13 Temp 97.9 Pulse 79 Resp 20 B/P (MAP) 143/72 (95) Pulse Ox 100 O2 Delivery Room Air Blood Pressure Mean: 95 Departure Impression Primary Impression: Headache Qualified Codes: R51 - Headache Disposition: 01 HOME, SELF-CARE Condition: Stable Departure-Patient Inst. Referrals: SHYAM NORIEGA MD (PCP/Family) Primary Care Physician Patient Instructions: Headache, Adult (DC) Add. Discharge Instructions: 1. Take Tylenol and ibuprofen for pain control. Follow-up with your doctor next week. Return to ER for any concerns. All discharge instructions reviewed with patient and/or family. Voiced understanding. JESSE ALBERTS FILTER TANK TENDER Apr 22, 2019 14:25
--- NOTE | 2019-04-22 14:48 | Diagnostic Imaging Report ---
PROCEDURE: CT head without contrast. TECHNIQUE: Multiple contiguous axial images were obtained through the brain without the use of intravenous contrast. Auto Exposure Controls were utilized during the CT exam to meet ALARA standards for radiation dose reduction. INDICATION: Struck in the head by a can. FINDINGS: There is no intracranial hemorrhage. The ventricles and cortical gyral pattern are normal. There is no mass effect. No extra-axial fluid collection. The mastoid air cells and paranasal sinuses are clear. No calvarial fractures. The orbital contents are normal. Pituitary is not enlarged. IMPRESSION: Negative CT head without contrast. Dictated by: Dictated on workstation # [id number]
[2019-04-22 14:55] VITALS: BP 127/72
== END 2019-04-22 14:55 | disposition home or self-care (01) ==
LOC: EDUNIT# 14:09 → ER 14:10
DX: R51 Headache (principal); I10 Essential (primary) hypertension; E78.00 Pure hypercholesterolemia, unspecified; M06.9 Rheumatoid arthritis, unspecified; R40.2142 Coma scale, eyes open, spontaneous, at arrival to emergency department; R40.2252 Coma scale, best verbal response, oriented, at arrival to emergency department; R40.2362 Coma scale, best motor response, obeys commands, at arrival to emergency department; Z87.442 Personal history of urinary calculi; Z87.440 Personal history of urinary (tract) infections; Z87.19 Personal history of other diseases of the digestive system; Z90.710 Acquired absence of both cervix and uterus; Z79.52 Long term (current) use of systemic steroids; Z79.51 Long term (current) use of inhaled steroids; Z82.49 Family history of ischemic heart disease and other diseases of the circulatory system; W20.8XXA Other cause of strike by thrown, projected or falling object, initial encounter; Y92.512 Supermarket, store or market as the place of occurrence of the external cause
CPT/HCPCS: 70450

== ENCOUNTER 2019-08-03 11:02 | Emergency (ER) | payer MEDICARE, OTHER ==
[~2019-08-03] VITALS: Ht 170.1 cm; Wt 72.7 kg
[2019-08-03] MEDS ORDERED: TETANUS,DIPTH,PERTUSS P/F (BOOSTRIX) 0.5 ML VIAL IM ONE (12:00)
[2019-08-03] MEDS ORDERED: LIDOCAINE/EPI 2% 1:100,00 (XYLOCAINE) 20 ML VIAL INJ ONE (12:00)
[2019-08-03] MEDS ORDERED: DOXY100T2 PO (12:04)
--- NOTE | 2019-08-03 12:05 | ED General ---
General Stated Complaint: FALL Source of Information: Patient Exam Limitations: No Limitations History of Present Illness Date Seen by Provider: Aug 03, 2019 Time Seen by Provider: 12:01 Initial Comments It was discussing to ER with reports of a fall. She tripped at home, did hit her head but no loss of consciousness no neck pain. Laceration to the anterior right lower leg, tetanus not up-to-date in the last 5 years. She is not on anti- anticoagulation. Her brings her to ER. Timing/Duration: 1/2 Hour Severity: Mild Associated Systoms: Denies Symptoms Allergies and Home Medications Allergies Coded Allergies: No Known Drug Allergies (Unverified , 03/20/15) Home Medications Alprazolam 0.25 Mg Tablet, 0.25 MG PO Q6H, (Reported) Amlodipine Besylate 5 Mg Tablet, 5 MG PO DAILY, (Reported) Celecoxib 200 Mg Capsule, 200 MG PO BID, (Reported) Cholecalciferol (Vitamin D3) 2,000 Unit Capsule, 2,000 UNIT PO HS, (Reported) Diclofenac Sodium 75 Mg Tablet.dr, 2 TAB PO BID, (Reported) Diclofenac Sodium 100 Gm Gel..gram., 100 GM TP QID, (Reported) Doxycycline Hyclate 100 Mg Tablet, 100 MG PO BID Prescribed by: JESSE ALBERTS on 08/03/19 1204 Duloxetine HCl 30 Mg Capsule.dr, 30 MG PO DAILY, (Reported) Estradiol 0.5 Mg Tablet, 0.25 MG PO BID, (Reported) TAKES ONE HALF OF 0.5 MG TAB TWICE A DAY Ezetimibe 10 Mg Tablet, 10 MG PO DAILY, (Reported) Fenofibrate Nanocrystallized 145 Mg Tablet, 145 MG PO DAILY, (Reported) Fluticasone Propionate 9.9 Ml [place].susp, 1 SPRAY NSEACH BID, (Reported) 1 SPRAY EACH NARE DAILY Fluticasone/Salmeterol 12 Gm Hfa.aer.ad, 2 PUFF IH BID@,20 Prescribed by: SHYAM NORIEGA on 11/04/16 0946 Gabapentin 100 Mg Capsule, 2 CAP PO DAILY, (Reported) TAKES TWO CAPSULES PO EVERY MORNING FOR TOTAL OF 200 MG Gabapentin 100 Mg Capsule, 4 CAP PO HS, (Reported) TAKES 4 CAPSULES DAILY AT BEDTIME DAILY FOR TOTAL OF 400 MG. Hydrocodone/Acetaminophen 1 Each Tablet, 1 TAB PO Q4H PRN for MODERATE PAIN, (Reported) Hyoscyamine Sulfate 0.375 Mg Tab.er.12h, 0.375 MG PO BID, (Reported) Infliximab 100 Mg Soln, 300 MG IV EVERY 8 WEEKS, (Reported) Linaclotide 72 Mcg Capsule, 72 MCG PO DAILY, (Reported) Methotrexate Tablet 2.5 Mg Tablet, 15 MG PO We, (Reported) TAKES 6 (2.5MG) TABLETS Nitrofurantoin Macrocrystal 50 Mg Capsule, 50 MG PO DAILY, (Reported) Olmesartan Medoxomil 40 Mg Tablet, 40 MG PO DAILY, (Reported) Omeprazole 20 Mg Capsule.dr, 20 MG PO BID, (Reported) Ropinirole HCl 1 Mg Tablet, 1 MG PO DAILY, (Reported) Scopolamine 1 Each Patch.td.3, 1 PATCH TD UD, (Reported) CHANGE EVERY 72 HRS Trazodone HCl 50 Mg Tablet, 75 MG PO HS, (Reported) TAKES 1.5 TABS FOR TOTAL DOSE OF 75 MG PO AT HS [Lamisil] , 250 MG PO DAILY, (Reported) Patient Home Medication List Home Medication List Reviewed: Yes Review of Systems Review of Systems Constitutional: see HPI EENTM: see HPI Respiratory: no symptoms reported Cardiovascular: no symptoms reported Genitourinary: no symptoms reported Musculoskeletal: no symptoms reported Skin: see HPI Psychiatric/Neurological: No Symptoms Reported Hematologic/Lymphatic: No Symptoms Reported Past Haplepd-Gokrar-Ezkeqs Hx Patient Social History 2nd Hand Smoke Exposure: No Recent Foreign Travel: No Contact w/Someone Who Travel: No Recent Hopitalizations: No Immunizations Up To Date Tetanus Booster (TDap): Unknown PED Vaccines UTD: No Date of Pneumonia Vaccine: Nov 02, 2012 Date of Influenza Vaccine: Jun 19, 2016 Seasonal Allergies Seasonal Allergies: No Past Medical History Surgeries: Yes (MULTIPLE ORTHOPEDIC SURGERIES) Breast, Gallbladder, Hysterectomy, Joint Replacement, Orthopedic, Renal Respiratory: No Cardiac: Yes High Cholesterol, Hypertension Neurological: No 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 Disorders: No 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, 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 Sexually Transmitted Disease: No HIV/AIDS: No Genitourinary: Yes Kidney Stones, UTI-Chronic Gastrointestinal: Yes Diverticulosis Musculoskeletal: Yes (CHRONIC GENERALIZED PAIN AND JOINT PAIN ; CHRONIC NECK PAIN) Degenerate Disk Disease, Arthritis, Rheumatoid Arthritis, Chronic Back Pain Endocrine: No HEENT: No Loss of Vision: Denies Hearing Impairment: Denies Cancer: No Psychosocial: No Integumentary: Yes (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--PICC LINE WITH 50 DAYS OF ANTIBIOTICS) Blood Disorders: No Adverse Reaction/Blood Tranf: No Family Medical History Alzheimer's disease G8 BROTHER G8 SISTER Arthritis G8 BROTHER Cataracts G8 SISTER Dementia G8 SISTER Fibrocystic disease of breast G8 SISTER Hypertension 19 FATHER 19 MOTHER G8 BROTHER G8 BROTHER G8 SISTER G8 SISTER Kidney disease G8 BROTHER No Family History of: AIDS Abdominal aortic aneurysm Runnels's disease Alcoholism Aphasia Asthma Cancer of mouth Cardiovascular disease Colon cancer Completed stroke Congenital disease Congenital heart disease Coronary thrombosis Cystic fibrosis Diabetes mellitus Drug abuse Dysphasia Gastroenteritis Glaucoma Headache disorder Hypercholesterolemia Infertility Myocardial infarction Neoplasm Not obtainable due to adoption Osteoporosis Parkinson's disease Prostate cancer Psychosocial problem Respiratory disorder Seizure disorder Severe allergy Thyroid disease Tuberculosis Visual disorder Heart Disease, Other Conditions/Hx Physical Exam Vital Signs Vital Signs - First Documented 08/03/19 11:43 Temp 36.5 Pulse 93 Resp 20 B/P (MAP) 124/73 (90) Pulse Ox 94 O2 Delivery Room Air Capillary Refill : Height, Weight, BMI Height: 5'7.00" Weight: 153lbs. 0.0oz. 69.549684pw; 26.3 BMI Method:Stated General Appearance: No Apparent Distress, WD/WN Eyes: Bilateral Eye Normal Inspection, Bilateral Eye PERRL, Bilateral Eye EOMI HEENT: PERRL/EOMI, Normal ENT Inspection Neck: Full Range of Motion, Normal Inspection; No Tender Lateral, No Tender Midline Respiratory: No Accessory Muscle Use, No Respiratory Distress Gastrointestinal: Non Tender, Soft Extremity: Normal Capillary Refill, Normal Range of Motion, Other (1 cm laceration to the anterior mid tibia on the right, tenderness over the lateral aspect of the leg, fibula. She is ambulatory into fast track room 2.) Neurologic/Psychiatric: Alert, Oriented x3 Skin: Normal Color, Warm/Dry Procedures/Interventions Wound Location: Lower Extremities Wound Length (cm): 1.5 Wound's Depth, Shape: linear, sub Q Wound Explored: clean Irrigated w/ Saline (ccs): 150 Anesthesia: Lidocaine w/ Epi Suture: Prolene Suture Size: 4-0 Number of Sutures: 3 Layer Closure?: 1 Number Deep Layer Sutures: 0 Progress/Results/Core Measures Suspected Sepsis SIRS Temperature: Pulse: Respiratory Rate: Blood Pressure / Mean: Results/Orders My Orders Orders - JESSE ALBERTS APRN Tibia/Fibula, Right, 2 Views (08/03/19 11:51) Ct Head/Cervical Spine Wo (08/03/19 11:51) Dipht,Pertuss(Acell),Tet Adult (Boostrix (08/03/19 12:00) Lidocaine/Epi 2% 1:100,000 (Xylocaine/Ep (08/03/19 12:00) Medications Given in ED Current Medications Medications Dose Ordered Sig/Arcenio Route Start Time Stop Time Status Last Admin Dose Admin Diphtheria/ Tetanus/Acell Pertussis 0.5 ml ONCE ONCE IM 08/03/19 12:00 08/03/19 12:01 DC 08/03/19 12:24 0.5 ML Lidocaine/ Epinephrine 20 ml ONCE ONCE INJ 08/03/19 12:00 08/03/19 12:01 DC 08/03/19 12:12 20 ML Vital Signs/I&O 08/03/19 11:43 Temp 36.5 Pulse 93 Resp 20 B/P (MAP) 124/73 (90) Pulse Ox 94 O2 Delivery Room Air Capillary Refill : Departure Impression Primary Impression: Leg laceration Qualified Codes: S81.811A - Laceration without foreign body, right lower leg, initial encounter Additional Impression: Minor head injury without loss of consciousness Qualified Codes: S09.90XA - Unspecified injury of head, initial encounter Disposition: 01 HOME, SELF-CARE Condition: Stable Departure-Patient Inst. Decision time for Depature: 12:03 Referrals: SHYAM NORIEGA MD (PCP/Family) Primary Care Physician Patient Instructions: Laceration Repair With Stitches (DC) Add. Discharge Instructions: 1. Antibiotics as directed 2. Return to ER for any concerns 3. Follow-up with your doctor next week. Return to ER in 7-10 days to have the stitches removed. Return to ER before then for any sign of head injury such as confusion, vomiting, severe headache. Scripts Doxycycline Hyclate (Doxycycline Hyclate) 100 Mg Tablet 100 MG PO BID, #10 TAB 0 Refills Prov: JESSE ALBERTS APRN 08/03/19 JESSE ALBERTS APRN Aug 03, 2019 12:04 POS
--- NOTE | 2019-08-03 12:27 | Diagnostic Imaging Report ---
INDICATION: Right lower leg injury. FINDINGS: AP and lateral views of the right tibia-fibula show postsurgical changes from knee arthroplasty. There is no acute fracture or dislocation. There are no radiopaque foreign objects seen. IMPRESSION: Negative right tibia-fibula. Dictated by: Dictated on workstation # [id number]
--- NOTE | 2019-08-03 12:56 | Diagnostic Imaging Report ---
PROCEDURE: CT head and CT cervical spine without contrast. TECHNIQUE: Multiple contiguous axial images were obtained through the brain and cervical spine without the use of intravenous contrast. Sagittal and coronal reformations through the cervical spine were then performed. Auto Exposure Controls were utilized during the CT exam to meet ALARA standards for radiation dose reduction. INDICATION: Fell and hit the back of the head. COMPARISON: Correlation is made with prior head CT from 04/22/2019. CT HEAD: The ventricles and sulci are within normal limits. No sulcal effacement or midline shift is detected. No acute intra-axial or extra-axial hemorrhage is detected. No depressed calvarial fracture is seen. Cisterns are patent. Visualized paranasal sinuses are clear. IMPRESSION: No acute intracranial process is detected. CT CERVICAL SPINE: There is reversal of the normal cervical lordotic curvature. Minimal anterolisthesis of C4 on C5 is noted. There is multilevel degenerative disc disease with disc space narrowing and marginal spurring. No fractures are identified. Prevertebral tissues are within normal limits. Odontoid is intact. IMPRESSION: Reversal of the normal cervical lordotic curvature. There is multilevel spondylosis. No acute bony abnormality is detected. Dictated by: Dictated on workstation # [id number]
[2019-08-03 13:00] VITALS: BP 124/73
== END 2019-08-03 13:00 | disposition home or self-care (01) ==
LOC: EDUNIT# 11:02 → ER 11:03
DX: S09.90XA Unspecified injury of head, initial encounter (principal); S81.811A Laceration without foreign body, right lower leg, initial encounter; I10 Essential (primary) hypertension; E78.00 Pure hypercholesterolemia, unspecified; M06.9 Rheumatoid arthritis, unspecified; Z87.440 Personal history of urinary (tract) infections; Z87.442 Personal history of urinary calculi; Z79.52 Long term (current) use of systemic steroids; Z79.51 Long term (current) use of inhaled steroids; Z90.710 Acquired absence of both cervix and uterus; Z82.49 Family history of ischemic heart disease and other diseases of the circulatory system; W01.10XA Fall on same level from slipping, tripping and stumbling with subsequent striking against unspecified object, initial encounter; Y92.009 Unspecified place in unspecified non-institutional (private) residence as the place of occurrence of the external cause
CPT/HCPCS: 70450; 72125; 73590; 90471; 90715

== ENCOUNTER → 2019-08-28 | Outpatient (CLI) | payer MEDICARE, OTHER ==
[~2019-08-28] MED LIST changes: +DOXY100T2 PO
--- NOTE | 2019-08-28 13:11 | Diagnostic Imaging Report ---
INDICATION: Nephrolithiasis. FINDINGS: Bowel gas pattern is nonspecific. Gallbladder surgically absent. There are some questionable stones projecting over the right kidney. There are degenerative changes in the spine. There has been a right hip replacement. IMPRESSION: Probable right nephrolithiasis. Nonspecific bowel gas pattern. Dictated by: Dictated on workstation # [id number]
== END ==
LOC: RAD 12:20
PROVIDERS: ATTEND Urology
DX: N20.2 Calculus of kidney with calculus of ureter (principal)
CPT/HCPCS: 74018

== ENCOUNTER 2019-09-03 05:28 | Outpatient (CLI) | payer MEDICARE, OTHER ==
[~2019-09-03] VITALS: Ht 170 cm; Wt 71.8 kg
[2019-09-03] MEDS ORDERED: TURM538C PO ×2 (10:25)
[2019-09-03] MEDS ORDERED: CYCL10TA9 PO ×2 (10:25)
[2019-09-03] MEDS ORDERED: FOLI1TAB24 PO ×2 (10:25)
[2019-09-03] MEDS ORDERED: MULT-985 PO ×2 (10:25)
[2019-09-03] MEDS ORDERED: MULT-351 PO ×2 (10:25)
[2019-09-03] MEDS ORDERED: ROPI1TAB2 PO ×2 (10:25)
[2019-09-03] MEDS ORDERED: CYAN250010 PO ×2 (10:25)
[2019-09-03] MEDS ORDERED: EYEL1TOW2 TP ×2 (10:25)
[2019-09-03] MEDS ORDERED: VALS160T29 PO ×2 (10:25)
[2019-09-03] MEDS ORDERED: L.AC1CAP6 PO ×2 (10:25)
[2019-09-04] MEDS ORDERED: TRAM50TA2 PO ×2 (11:41)
[2019-09-04] MEDS ORDERED: TAMS0.4C98 PO ×2 (11:41)
[2019-09-04] MEDS ORDERED: NITR-65 PO ×2 (11:41)
== END 2019-09-03 10:42 | disposition home or self-care (01) ==
LOC: PREOP 05:28
PROVIDERS: ATTEND Urology
DX: Z01.818 Encounter for other preprocedural examination (principal)

== ENCOUNTER 2019-09-04 06:53 | Day surgery (SDC) | payer MEDICARE, OTHER ==
[2019-09-04] VITALS (11 sets, daily range): BP systolic 121–148; BP diastolic 70–84
[~2019-09-04] VITALS: Ht 170 cm; Wt 71.8 kg
[~2019-09-04 06:53] MED LIST changes: +CYAN250010 PO; +CYCL10TA9 PO; +EYEL1TOW2 TP; +L.AC1CAP6 PO; +MULT-351 PO; +MULT-985 PO; +ROPI1TAB2 PO; +TURM538C PO; +VALS160T29 PO
--- NOTE | 2019-09-04 07:06 | Progress Note-Pre Operative ---
Pre-Operative Progress Note H&P Reviewed The H&P was reviewed, patient examined and no changes noted. Date Seen by Provider: Sep 04, 2019 Time Seen by Provider: 07:06 Date H&P Reviewed: Sep 04, 2019 Time H&P Reviewed: 07:06 Pre-Operative Diagnosis: RT URETERAL STONE OSCAR LEAVITT MD Sep 04, 2019 07:06 POS
[2019-09-04] MEDS ORDERED: cefTRIAXone FOR IV USE 1,000 MG in WATER (STERILE) FOR INJECTION 10 ML IV ONE (07:15)
[2019-09-04] MEDS: LACTATED RINGERS 1,000 ML IV PRN ×2 (08:05→10:00)
--- NOTE | 2019-09-04 08:49 | Diagnostic Imaging Report ---
EXAMINATION: Abdominal radiographs, single supine view. DATE: September 04, 2019. CLINICAL INDICATION: 69-year-old female, preoperative exam. Right ureteral stone. COMPARISON: August 28, 2019. COMMENTS: There are surgical clips overlying the right upper quadrant. There are 3 separately noted calcifications at the levels of the L2 and L3 vertebral bodies to the right of midline which could potentially be positioned in the right ureter. These measure 8, 8, and 7 mm in size. There are pelvic calcifications likely relating to phleboliths. There is a right hip prosthesis. There are degenerative changes of the spine. There are no abnormally distended gas-filled segments of bowel. The upper abdomen is incompletely imaged. IMPRESSION: 1. Multiple calcifications to the right of midline which could potentially be within the right ureter although are not definitively localized on radiographs. Dictated by: Dictated on workstation # [id number]
[2019-09-04] MEDS ORDERED: fentaNYL INJECTION 100 MCG/2 ML AMP ONE (09:16)
[2019-09-04] MEDS ORDERED: MIDAZOLAM 2 MG/2 ML (VERSED) VIAL ONE (09:17)
[2019-09-04] MEDS ORDERED: KETOROLAC 30 MG/ML VIAL ONE (09:38)
[2019-09-04] MEDS ORDERED: ONDANSETRON 4 MG/2 ML (SDV) Z0FRAN ONE (09:38)
[2019-09-04] MEDS ORDERED: FUROSEMIDE 40 MG/4 ML INJ (LASIX) ONE (09:38)
[2019-09-04] MEDS ORDERED: SEVOFLURANE (ULTANE) 15 ML INHAL SOLN ONE ×2 (09:38→10:04)
[2019-09-04] MEDS ORDERED: proPOfol 200 MG/20 ML (DIPRIVAN) VIAL IV ONE (09:38)
[2019-09-04] MEDS ORDERED: LIDOCAINE PF 2% 5 ML (XYLOCAINE) VIAL ONE (09:38)
--- NOTE | 2019-09-04 09:43 | Progress Note-Post Operative ---
Post-Operative Progess Note Surgeon (s)/Marine Diesel Technician (s) Surgeon OSCAR LEAVITT MD Marine Diesel Technician: NONE Pre-Operative Diagnosis RT PROXIMAL URETERAL STONE Post-Operative Diagnosis SAME Procedure & Operative Findings Date of Procedure 09/04/19 Procedure Performed/Findings RT ESWL Anesthesia Type GENERAL Estimated Blood Loss Estimated blood loss (mL): NONE Specimens/Packing Specimens Removed NONE Packing: NONE OSCAR LEAVITT MD Sep 04, 2019 09:43 POS
--- NOTE | 2019-09-04 09:52 | Discharge Inst-Urology ---
Discharge Inst-Urology Reconcile Patient Problems Problems Reviewed?: Yes Patient Instructions/Follow Up Plan/Assessment/Instructions Please make appointment to been seen in office in 2 weeks. KUB prior to it KUB on way home Post ESWL instructions to patient Increase oral fluids for 48 hours and then as needed. Diet and Activity as tolerated. If questions or concerns contact your physician Or seek help at emergency department. OSCAR LEAVITT MD Sep 04, 2019 09:52 POS
[2019-09-04] MEDS ORDERED: morphine INJ 10 MG/ML 1ML (SYR OR VIAL) IVP ONE (10:15)
[2019-09-04] MEDS ORDERED: MEPERIDINE (DEMEROL) INJ 50 MG/ML IVP ONE (10:15)
[2019-09-04] MEDS ORDERED: fentaNYL INJECTION 100 MCG/2 ML AMP IVP ONE (10:15)
[2019-09-04] MEDS ORDERED: ONDANSETRON 4 MG/2 ML (SDV) Z0FRAN IVP PRN (10:15)
--- NOTE | 2019-09-04 11:20 | NUR ---
VERY SLIGHT SWELLING NOTED AT IV SITE LEFT FOREARM. IV DC'D, LEFT ARM ELEVATED.
--- NOTE | 2019-09-04 11:30 | NUR ---
HAS BEEN UP TO BR WITH ASSIST, GAIT STEADY, VOIDED 900 CC CLEAR, LIGHT RED URINE. URINE STRAINED, NO STONE PARTICLES OBTAINED. ASSIST BACK TO ROOM, TAKING PO FLUIDS WITHOUT PROBLEM, DENIES PAIN.
[2019-09-04] MEDS ORDERED: TRAM50TA2 PO ×2 (11:41)
[2019-09-04] MEDS ORDERED: NITR-65 PO ×2 (11:41)
[2019-09-04] MEDS ORDERED: TAMS0.4C98 PO ×2 (11:41)
--- NOTE | 2019-09-04 11:53 | Diagnostic Imaging Report ---
REASON FOR EXAM: POST ESWL. COMPARISON: Abdominal radiograph performed earlier the same date. TECHNIQUE: Frontal supine view of the abdomen. FINDINGS: The bowel gas pattern is nondistended. No large collection of free intraperitoneal air is seen. Scattered small amounts of gas and fecal material are present in the colon. Calcifications are again noted right of midline. Multiple phleboliths are also noted in the pelvis. The osseous structures are age-appropriate. Surgical hardware is noted in the right hip. IMPRESSION: 1. Redemonstration of multiple calcifications right of the midline, which may represent ureteral stones. 2. No evidence of bowel obstruction or large collection of free intraperitoneal air. Dictated by: Dictated on workstation # [id number]
--- NOTE | 2019-09-04 12:12 | NUR ---
VOIDED ADDITIONAL 400 CC CLEAR, DARK PINK URINE WITHOUT PROBLEM, NO STONE PARTICLES OBTAINED. ALERT, CHEERFUL, DENIES PAIN. REQUESTING DISMISSAL.
--- NOTE | 2019-09-04 14:52 | Anesthesia-General Post-Op ---
General Patient Condition Mental Status/LOC: Same as Preop Cardiovascular: Satisfactory Nausea/Vomiting: Absent Respiratory: Satisfactory Pain: Controlled Complications: Absent Post Op Complications Complications None Follow Up Care/Instructions Patient Instructions None needed. Anesthesia/Patient Condition Patient Condition Patient is doing well, no complaints, stable vital signs, no apparent adverse anesthesia problems. No complications reported per nursing. LENORE RODARTE CRNA Sep 04, 2019 14:52 POS
--- NOTE | 2019-09-04 15:53 | OPERATIVE REPORT ---
DATE OF SERVICE: 09/04/2019 PREOPERATIVE DIAGNOSIS: Right proximal ureteral stone. POSTOPERATIVE DIAGNOSIS: Right proximal ureteral stone. OPERATION PERFORMED: Right ESWL. SURGEON: Gavin Leavitt MD ANESTHESIA: General. COMPLICATIONS: None. DESCRIPTION OF PROCEDURE: Under satisfactory general anesthesia, the patient in supine position on the ESWL table, the right proximal ureteral stone was localized. Shocks were delivered at kV of 6, a total of 3000 shocks nicely fragmented the stone. The patient received 30 mg of Toradol and 40 mg of Lasix IV at the end of the procedure. She tolerated the procedure and anesthesia well and was sent to recovery room in stable condition. 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
== END 2019-09-04 12:12 | disposition home or self-care (01) ==
LOC: SDC 06:53
PROVIDERS: ATTEND Urology
DX: N20.1 Calculus of ureter (principal); M06.9 Rheumatoid arthritis, unspecified; K58.9 Irritable bowel syndrome, unspecified; I10 Essential (primary) hypertension; E78.5 Hyperlipidemia, unspecified; Z79.899 Other long term (current) drug therapy; Z96.651 Presence of right artificial knee joint; Z96.641 Presence of right artificial hip joint; Z11.2 Encounter for screening for other bacterial diseases
CPT/HCPCS: 74018; 87081

== ENCOUNTER → 2019-09-25 | Outpatient (CLI) | payer MEDICARE, OTHER ==
[~2019-09-25] MED LIST changes: +TAMS0.4C98 PO; +TRM50T PO
--- NOTE | 2019-09-25 15:05 | Diagnostic Imaging Report ---
INDICATION: Right ureteral stone, post-lithotripsy. TIME OF EXAM: 2:22 p.m. COMPARISON: Correlation is made with prior study from 09/04/2019. FINDINGS: Bowel gas pattern is unremarkable. Calcific densities overlie the right renal shadow. Previously noted calcifications perhaps in the region of the right ureter and mid aspect are no longer appreciated. Pelvic calcifications are noted, similar to prior exam likely a combination of vascular calcifications as well as phleboliths. A medially oriented right paramidline calcific density is noted, indeterminate. This could perhaps represent a distal ureteric calculus. Postoperative changes in the right hip are noted. IMPRESSION: Abdominal and pelvic calcifications, as described. Dictated by: Dictated on workstation # [id number]
== END ==
LOC: RAD 14:04
PROVIDERS: ATTEND Urology
DX: N20.1 Calculus of ureter (principal); Z98.890 Other specified postprocedural states
CPT/HCPCS: 74018

== ENCOUNTER → 2019-11-02 | Outpatient (CLI) | payer MEDICARE, OTHER ==
[~2019-11-02] MED LIST changes: +OMEP-280 PO; -OMEP20CA13 PO; -TAMS0.4C98 PO; +TMSL.4C PO; -TRAZ-222 PO; +TRZ50T PO
--- NOTE | 2019-11-02 16:44 | Diagnostic Imaging Report ---
EXAMINATION: Left shoulder radiographs, 3 views. COMPARISON: November 26, 2017. HISTORY: 69-year-old female, left shoulder pain. FINDINGS: There is a total reverse left shoulder prosthesis. The hardware is intact. There is no periprosthetic lucency. There is a potential contour abnormality of the scapula seen on the scapular Y view. There is abnormal high attenuation in the distribution of the coracoclavicular ligaments likely relating to sequela of prior injury. The acromioclavicular joint is not widened. There are no prominent acromioclavicular degenerative changes. IMPRESSION: 1. Potential contour abnormality of the scapula seen only on the scapular Y view. This is concerning for a possible fracture, especially given history of recent fall. Dedicated CT left shoulder without contrast is recommended for further evaluation. Dictated by: Dictated on workstation # [id number]
== END ==
LOC: RAD 15:40
PROVIDERS: ATTEND Nurse Practitioner Family
DX: M25.512 Pain in left shoulder (principal); Z91.81 History of falling
CPT/HCPCS: 73030

== ENCOUNTER → 2019-11-08 | Outpatient (CLI) | payer MEDICARE, OTHER ==
--- NOTE | 2019-11-08 13:38 | Diagnostic Imaging Report ---
PROCEDURE: CT left upper extremity without contrast. TECHNIQUE: Multiple contiguous axial images were obtained through the left upper extremity without the use of intravenous contrast. Auto Exposure Controls were utilized during the CT exam to meet ALARA standards for radiation dose reduction. INDICATION: Fall, left shoulder pain. COMPARISON: 11/02/2019 FINDINGS: There is a left total shoulder arthroplasty with surrounding streak artifact. This results in suboptimal evaluation of the adjacent anatomy. There is a focal area of cortical irregularity seen at the medial body of the scapula which is thought to represent artifact when viewed on the multiplanar reformats. No definite fracture is seen. No hardware loosening is seen. No fracture is seen in the humerus. The surrounding soft tissues demonstrate no masses or lymphadenopathy. IMPRESSION: 1. Focal cortical irregularity at the medial body of the scapula is thought to represent artifact rather than acute nondisplaced fracture. No other findings of fracture are seen in the left scapula. 2. Left shoulder arthroplasty without evidence of loosening. Dictated by: Dictated on workstation # [id number]
== END ==
LOC: RAD 12:20
PROVIDERS: ATTEND Nurse Practitioner Family
DX: M25.512 Pain in left shoulder (principal); Z96.612 Presence of left artificial shoulder joint; W19.XXXA Unspecified fall, initial encounter
CPT/HCPCS: 73200

== ENCOUNTER → 2020-02-29 | Outpatient (CLI) | payer MEDICARE, OTHER ==
[~2020-02-29] MED LIST changes: +ACHYD1T PO; +FENO145T26 PO; -FENO145T37 PO; -HYDR-3820 PO; -OMEP-280 PO; +OMEP20CA18 PO; +ROPI1TAB PO; -ROPI1TAB2 PO
--- NOTE | 2020-02-29 21:33 | Diagnostic Imaging Report ---
INDICATION: Pain in the outer right breast. COMPARISON: Correlation is made with diagnostic mammogram from earlier the same day. EXAMINATION: Sonographic interrogation of the outer right breast was performed. FINDINGS: No sonographic abnormality is seen. No solid or cystic mass is detected. IMPRESSION: No sonographic abnormality is detected. ACR BI-RADS Category 1: Negative. Result letter will be mailed to the patient. Note: At least 10% of breast cancer is not imaged by mammography. Dictated by: Dictated on workstation # [id number]
--- NOTE | 2020-02-29 21:38 | Diagnostic Imaging Report ---
INDICATION: Lateral right breast pain. COMPARISON: Correlation is made with prior mammograms from 03/31/2018 and 06/23/2016. EXAMINATION: 2D and 3D bilateral diagnostic mammography was performed with CAD. The current study was also evaluated with a Computer Aided Detection (CAD) system. FINDINGS: Scattered fibroglandular densities are identified, bilaterally. No mass or malignant appearing microcalcifications are seen. There are scattered benign calcifications. Axillae are unremarkable. IMPRESSION: No mammographic features suspicious for malignancy are identified. Even so, sonographic interrogation of the outer right breast at the area of pain is recommended and will be performed today. ACR BI-RADS Category 0: Incomplete. (Needs additional imaging evaluation). Result letter will be mailed to the patient. Note: At least 10% of breast cancer is not imaged by mammography. Dictated by: Dictated on workstation # [id number]
== END ==
LOC: RAD 13:21
PROVIDERS: ATTEND Nurse Practitioner Family
DX: N64.4 Mastodynia (principal)
CPT/HCPCS: 76642; 77066; G0279; 77062

== ENCOUNTER → 2020-05-09 | Outpatient (CLI) | payer MEDICARE, OTHER ==
--- NOTE | 2020-05-09 16:26 | Diagnostic Imaging Report ---
INDICATION: Left leg pain. Left leg venous Doppler study was performed in the routine fashion with color flow Doppler and waveform analysis. FINDINGS: The left common femoral vein, superficial femoral vein, popliteal vein and visualized portion of the posterior tibial vein show normal compressibility and venous flow patterns. There is normal augmentation. IMPRESSION: No evidence of deep vein thrombosis of the major veins of the left leg. Dictated by: Dictated on workstation # [id number]
== END ==
LOC: RAD 15:30
PROVIDERS: ATTEND Nurse Practitioner Family
DX: M79.662 Pain in left lower leg (principal)

== ENCOUNTER 2020-08-30 13:49 | Emergency (ER) | payer MEDICARE, OTHER ==
--- NOTE | 2020-08-30 14:14 | ED Respiratory ---
General Chief Complaint: Respiratory Problems Stated Complaint: SOB/LOW BP Source: patient Exam Limitations: no limitations History of Present Illness Date Seen by Provider: Aug 30, 2020 Time Seen by Provider: 13:53 Initial Comments Patient ambulated into the ER on her own power with progressive shortness of breath on exertion and chief complaint of shortness of air since she woke up this morning. She has felt malaise and had a nonproductive cough that is clear. She has a history of pneumonia and says she feels like that. She does not smoke nor did she ever. She denies history of lung or heart disease. She follows with Dr. NORIEGA's office. She is not on blood thinners. No known sick contacts recently but her family members did have Covid over a month ago. No diarrhea nausea vomiting dysuria fever but she did have some chills this morning. She did not check her temperature. She has a history of high blood pressure and today she checked her oxygen sats and they are 86% at rest and her blood pressure was low in the 90s systolic at home. She is on Remicade for rheumatoid arthritis. Allergies and Home Medications Allergies Coded Allergies: No Known Drug Allergies (Unverified , 09/03/19) Home Medications Alprazolam 0.25 Mg Tablet, 0.25 MG PO Q6H, (Reported) Amlodipine Besylate 5 Mg Tablet, 5 MG PO DAILY, (Reported) Celecoxib 200 Mg Capsule, 200 MG PO BID, (Reported) Cholecalciferol (Vitamin D3) 2,000 Unit Capsule, 2,000 UNIT PO HS, (Reported) Cyanocobalamin (Vitamin B-12) 2,500 Mcg Tablet, 2,500 MCG PO DAILY, (Reported) Cyclobenzaprine HCl 10 Mg Tablet, 10 MG PO PRN, (Reported) Estradiol 0.5 Mg Tablet, 0.5 MG PO DAILY, (Reported) TAKES ONE HALF OF 0.5 MG TAB TWICE A DAY Eyelid Cleanser Combination #9 1 Each Towelette, 1 EACH TP TID, (Reported) Ezetimibe 10 Mg Tablet, 10 MG PO DAILY, (Reported) Fenofibrate Nanocrystallized 145 Mg Tablet, 145 MG PO DAILY, (Reported) Fluticasone Propionate 9.9 Ml Burns.susp, 1 SPRAY NSEACH BID, (Reported) 1 SPRAY EACH NARE DAILY Folic Acid 1 Mg Tablet, 1 MG PO DAILY, (Reported) Gabapentin 100 Mg Capsule, 2 CAP PO DAILY, (Reported) TAKES TWO CAPSULES PO EVERY MORNING FOR TOTAL OF 200 MG Gabapentin 100 Mg Capsule, 4 CAP PO HS, (Reported) TAKES 4 CAPSULES DAILY AT BEDTIME DAILY FOR TOTAL OF 400 MG. Hydrocodone Bit/Acetaminophen 1 Each Tablet, 1 TAB PO Q4H PRN for MODERATE PAIN, (Reported) Hyoscyamine Sulfate 0.375 Mg Tab.er.12h, 0.375 MG PO BID, (Reported) Infliximab 100 Mg Soln, 300 MG IV EVERY 8 WEEKS, (Reported) L.acidoph & Paracasei,B.lactis 1 Each Capsule, 1 EACH PO BID, (Reported) Linaclotide 72 Mcg Capsule, 72 MCG PO DAILY, (Reported) Methotrexate Tablet 2.5 Mg Tablet, 15 MG PO We, (Reported) TAKES 6 (2.5MG) TABLETS Multivitamin 1 Each Tablet, 1 EACH PO DAILY, (Reported) Multivitamin with Minerals 1 Each Tablet, 1 EACH PO DAILY, (Reported) Nitrofurantoin Macrocrystal 50 Mg Capsule, 50 MG PO DAILY, (Reported) Nitrofurantoin Monohyd/M-Cryst 100 Mg Capsule, 1 TAB PO BID Prescribed by: MILADYS PRINCE on 09/04/19 1141 Omeprazole 20 Mg Capsule.dr, 20 MG PO BID, (Reported) Ropinirole HCl 1 Mg Tablet, 1 MG PO HS, (Reported) Tamsulosin HCl 0.4 Mg Cap, 0.4 MG PO DAILY Prescribed by: MILADYS PRINCE on 09/04/19 1141 Tramadol HCl 50 Mg Tablet, 1-2 TAB PO Q4H Prescribed by: MILADYS PRINCE on 09/04/19 1141 Trazodone HCl 50 Mg Tablet, 75 MG PO HS, (Reported) TAKES 1.5 TABS FOR TOTAL DOSE OF 75 MG PO AT HS Turmeric Root Extract 538 Mg Capsule, 538 MG PO DAILY, (Reported) Valsartan 160 Mg Tablet, 160 MG PO DAILY, (Reported) Patient Home Medication List Home Medication List Reviewed: Yes Review of Systems Review of Systems Constitutional: chills; No diaphoresis, No fever; malaise EENTM: No ear discharge, No ear pain Respiratory: cough; No phlegm; short of breath Cardiovascular: No chest pain, No Hx of Intervention, No palpitations Gastrointestinal: No abdominal pain, No constipation, No diarrhea, No nausea, No vomiting Genitourinary: No discharge, No dysuria Musculoskeletal: No back pain, No joint pain Psychiatric/Neurological: Denies Anxiety, Denies Depressed All Other Systems Reviewed Negative Unless Noted: Yes Past Eszmqva-Mchxdk-Djwygu Hx Patient Social History Alcohol Use: Occasionally Uses Recreational Drug Use: No Smoking Status: Never a Smoker 2nd Hand Smoke Exposure: No Recent Foreign Travel: No Contact w/Someone Who Travel: No Recent Hopitalizations: No Immunizations Up To Date Tetanus Booster (TDap): More than 5yrs PED Vaccines UTD: No Date of Pneumonia Vaccine: Nov 02, 2012 Date of Influenza Vaccine: Jun 25, 2019 Seasonal Allergies Seasonal Allergies: No Past Medical History Surgeries: Yes (MULTIPLE ORTHOPEDIC SURGERIES-HAS HAD OVER 40 SURGIES) Breast, Gallbladder, Hysterectomy, Joint Replacement, Orthopedic, Renal Respiratory: No Cardiac: Yes High Cholesterol, Hypertension Neurological: No 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 Disorders: No Female 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 Disorders: Denies LOCAL [employer] History: Hysterectomy, Menopausal Sexually Transmitted Disease: No HIV/AIDS: No Genitourinary: Yes Kidney Stones, UTI-Chronic Gastrointestinal: Yes Diverticulosis Musculoskeletal: Yes (CHRONIC GENERALIZED PAIN AND JOINT PAIN ; CHRONIC NECK PAIN) Degenerate Disk Disease, Arthritis, Rheumatoid Arthritis, Chronic Back Pain Endocrine: No HEENT: No (CONTACTS) Loss of Vision: Denies Hearing Impairment: Denies Cancer: No Psychosocial: Yes Anxiety Integumentary: Yes (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--PICC LINE WITH 50 DAYS OF ANTIBIOTICS) Blood Disorders: No Adverse Reaction/Blood Tranf: No (HAS HAD BLOOD WITH NO REACTION) Family Medical History Alzheimer's disease G8 BROTHER G8 SISTER Arthritis G8 BROTHER Cataracts G8 SISTER Dementia G8 SISTER Fibrocystic disease of breast G8 SISTER Hypertension 19 FATHER 19 MOTHER G8 BROTHER G8 BROTHER G8 SISTER G8 SISTER Kidney disease G8 BROTHER No Family History of: AIDS Abdominal aortic aneurysm Marco's disease Alcoholism Aphasia Asthma Cancer of mouth Cardiovascular disease Colon cancer Completed stroke Congenital disease Congenital heart disease Coronary thrombosis Cystic fibrosis Diabetes mellitus Drug abuse Dysphasia Gastroenteritis Glaucoma Headache disorder Hypercholesterolemia Infertility Myocardial infarction Neoplasm Not obtainable due to adoption Osteoporosis Parkinson's disease Prostate cancer Psychosocial problem Respiratory disorder Seizure disorder Severe allergy Thyroid disease Tuberculosis Visual disorder Heart Disease, Other Conditions/Hx Physical Exam Vital Signs - First Documented 08/30/20 14:00 Temp 35.7 Pulse 80 Resp 25 B/P (MAP) 107/65 (79) Pulse Ox 98 O2 Delivery Nasal Cannula O2 Flow Rate 2.00 Capillary Refill : Height: 5'7.00" Weight: 153lbs. 0.0oz. 69.075581ye; 24.84 BMI Method:Stated General Appearance: WD/WN, mild distress Eyes: Bilateral Eye Normal Inspection, Bilateral Eye PERRL, Bilateral Eye EOMI HEENT: PERRL/EOMI, normal ENT inspection, pharynx normal Neck: full range of motion, normal inspection Respiratory: no respiratory distress, no accessory muscle use, respiratory distress Cardiovascular: normal peripheral pulses, regular rate, rhythm Gastrointestinal: non tender, soft Neurologic/Psychiatric: alert, normal mood/affect, oriented x 3 Skin: normal color, warm/dry Procedures/Interventions Suture Size: 4-0 Progress/Results/Core Measures Suspected Sepsis SIRS Temperature: Pulse: Respiratory Rate: Laboratory Tests 08/30/20 14:55: White Blood Count 5.7 Blood Pressure / Mean: Laboratory Tests 08/30/20 14:55: Creatinine 1.61H, INR Comment 1.0, Platelet Count 310, Total Bilirubin 0.6 Results/Orders Lab Results Laboratory Tests Test 08/30/20 14:05 08/30/20 14:15 08/30/20 14:55 08/30/20 15:29 Range/Units Coronavirus 2019 (SILVIA) Negative Negative Blood Gas Puncture Site NA Blood Gas Patient Temperature 35.9 Arterial Blood pH 7.31 *L 7.37-7.43 Arterial Blood Partial Pressure CO2 44 35-45 MMHG Arterial Blood Partial Pressure O2 116 H 79-93 MMHG Arterial Blood HCO3 22 L 23-27 MMOL/L Arterial Blood Total CO2 23.3 21.0-31.0 MMOL/L Arterial Blood Oxygen Saturation 96 94-100 % Arterial Blood Base Excess -3.7 L -2.5-2.5 MMOL/L Jose Test YES-POS Blood Gas Ventilator Setting NO Blood Gas Inspired Oxygen ROOM AIR White Blood Count 5.7 4.3-11.0 10^3/uL Red Blood Count 3.38 L 3.80-5.11 10^6/uL Hemoglobin 10.4 L 11.5-16.0 g/dL Hematocrit 34 L 35-52 % Mean Corpuscular Volume 100 H 80-99 fL Mean Corpuscular Hemoglobin 31 25-34 pg Mean Corpuscular Hemoglobin Concent 31 L 32-36 g/dL Red Cell Distribution Width 17.0 H 10.0-14.5 % Platelet Count 310 130-400 10^3/uL Mean Platelet Volume 9.7 9.0-12.2 fL Immature Granulocyte % (Auto) 0 % Neutrophils (%) (Auto) 72 42-75 % Lymphocytes (%) (Auto) 15 12-44 % Monocytes (%) (Auto) 12 0-12 % Eosinophils (%) (Auto) 1 0-10 % Basophils (%) (Auto) 1 0-10 % Neutrophils # (Auto) 4.1 1.8-7.8 10^3/uL Lymphocytes # (Auto) 0.9 L 1.0-4.0 10^3/uL Monocytes # (Auto) 0.7 0.0-1.0 10^3/uL Eosinophils # (Auto) 0.0 0.0-0.3 10^3/uL Basophils # (Auto) 0.0 0.0-0.1 10^3/uL Immature Granulocyte # (Auto) 0.0 0.0-0.1 10^3/uL Prothrombin Time 13.8 12.2-14.7 SEC INR Comment 1.0 0.8-1.4 Activated Partial Thromboplast Time 27 24-35 SEC D-Dimer 0.39 0.00-0.49 UG/ML Sodium Level 133 L 135-145 MMOL/L Potassium Level 3.7 3.6-5.0 MMOL/L Chloride Level 103 98-107 MMOL/L Carbon Dioxide Level 17 L 21-32 MMOL/L Anion Gap 13 5-14 MMOL/L Blood Urea Nitrogen 34 H 7-18 MG/DL Creatinine 1.61 H 0.60-1.30 MG/DL Estimat Glomerular Filtration Rate 31 BUN/Creatinine Ratio 21 Glucose Level 127 H 70-105 MG/DL Calcium Level 9.1 8.5-10.1 MG/DL Corrected Calcium 9.1 8.5-10.1 MG/DL Total Bilirubin 0.6 0.1-1.0 MG/DL Aspartate Amino Transf (AST/SGOT) 23 5-34 U/L Alanine Aminotransferase (ALT/SGPT) 21 0-55 U/L Alkaline Phosphatase 47 40-136 U/L C-Reactive Protein High Sensitivity 0.13 0.00-0.50 MG/DL Total Protein 7.1 6.4-8.2 GM/DL Albumin 4.0 3.2-4.5 GM/DL Micro Results Microbiology 08/30/20 Influenza Types A,B Antigen (JOANN) - Final, Complete My Orders Orders - JIM RODRÍGUEZ Ekg Tracing (08/30/20 13:55) Continuous Ekg Monitoring (08/30/20 13:55) Arterial Blood Gas (08/30/20 14:08) Cbc With Automated Diff (08/30/20 14:08) Comprehensive Metabolic Panel (08/30/20 14:08) Blood Culture (08/30/20 14:08) Hs C Reactive Protein (08/30/20 14:08) Chest 1 View, Ap/Pa Only (08/30/20 14:08) Covid 19 Inhouse Test (08/30/20 14:08) Influenza A And B Antigens (08/30/20 14:08) Ekg Tracing (08/30/20 14:08) Orthostatic Vital Signs (Adult (08/30/20 14:08) Lactated Ringers (Lr 1000 Ml Iv Solution (08/30/20 14:45) Lactated Ringers (Lr 1000 Ml Iv Solution (08/30/20 15:30) Coronavirus Sars-Cov-2 So 2018 (08/30/20 15:23) Protime With Inr (08/30/20 15:38) Partial Thromboplastin Time (08/30/20 15:38) Fibrin Degradation Products (08/30/20 15:38) Medications Given in ED Current Medications Medications Dose Ordered Sig/Arcenio Route Start Time Stop Time Status Last Admin Dose Admin Lactated Ringer's 1,000 ml @ 0 mls/hr Q0M ONCE IV 08/30/20 14:45 08/30/20 14:46 DC 08/30/20 14:36 0 MLS/HR Lactated Ringer's 1,000 ml @ 0 mls/hr Q0M ONCE IV 08/30/20 15:30 08/30/20 15:31 DC 08/30/20 16:05 0 MLS/HR Vital Signs/I&O 08/30/20 08/30/20 14:00 14:23 Temp 35.7 Pulse 80 74 83 87 Resp 25 B/P (MAP) 107/65 (79) 104/59 (74) 104/57 (73) 97/56 (70) Pulse Ox 98 O2 Delivery Nasal Cannula O2 Flow Rate 2.00 Capillary Refill : Progress Note #1: Time: 14:34 Progress Note Exertional dyspnea. Negative for orthostatics. Would not give her a liter of fluids get a chest x-ray. Bacterial versus viral pneumonia. ABG reveals good oxygenation at rest on room air however she has metabolic acidosis. She does not meet septic criteria but blood cultures were obtained. Progress Note #2: Time: 15:37 Progress Note Patient has not had desaturation while at rest. She states she does feel hypoxic and has low oxygen sats on her finger probe after exerting herself even walking across the room. Plan to give her a second liter of fluids as she does appear to be dehydrated. We will get a D-dimer. We did do a send out Covid since her initial Covid and influenza were negative. Progress Note #3: Time: 17:44 Progress Note After the IV fluids the patient has been up walking multiple times to the bathroom and says she feels significantly better. She is ready to go home. ECG Initial ECG Impression Date: Aug 30, 2020 Initial ECG Impression Time: 14:08 Initial ECG Rate: 71 Initial ECG Rhythm: Normal Sinus Initial ECG Intervals: Normal Initial ECG Impression: Normal Comment Normal sinus rhythm without clinically relevant ST changes. Diagnostic Imaging Diagonstic Imaging: Xray Plain Films/CT/US/NM/MRI: chest Comments NAME: SENTHIL FRANCISCO I [facility] REC#: [id number] PT STATUS: REG ER : 1950 PHYSICIAN: JIM RODRÍGUEZ MD ADMIT DATE: 08/30/20/ER Draft Date of Exam:08/30/20 CHEST 1 VIEW, AP/PA ONLY INDICATION: SOA, cough. TECHNIQUE: Single view chest 3:14 p.m. CORRELATION STUDY: 03/28/2018. FINDINGS: Heart size is borderline, Vasculature overall within normal limits. Minimally tortuous course of the thoracic aorta. Elevated right diaphragm with likely atelectasis at the right lung base. No definitive consolidating infiltrate. Postoperative changes of bilateral shoulders. IMPRESSION: Stable chest demonstrates no acute abnormality. Dictated on workstation # [id number] Dict: 08/30/20 1518 Trans: 08/30/20 1529 [facility] [id number] Interpreted by: OG HOLDEN DO Electronically signed by: Reviewed: Reviewed by Me Departure Impression Primary Impression: Dehydration Additional Impressions: Acute viral syndrome Person under investigation for COVID-19 Disposition: 01 HOME, SELF-CARE Condition: Improved Departure-Patient Inst. Decision time for Depature: 17:49 Referrals: SHYAM NORIEGA MD (PCP/Family) Primary Care Physician Patient Instructions: Dehydration, Adult (DC) Add. Discharge Instructions: Drink lots of fluids of your choice over the next week. Return to the ER if you are having worsening symptoms. Touch bases with your primary care doctor if you have other concerns. We should contact you in the next 2 to 3 days with the results of your send out COVID-19 swab. If it is positive you should remain in quarantine for the next 10 days as well as you should be 72 hours symptoms free which ever is longer before leaving quarantine. If the swab is negative then you need merely to be 72 hours symptoms free before leaving quarantine. All discharge instructions reviewed with patient and/or family. Voiced unders tanding. JIM RODRÍGUEZ Aug 30, 2020 14:14
[2020-08-30 14:23] VITALS: BP_SYST 104; BP_SYST 97; BP_DIAS 56; BP_DIAS 57; BP_DIAS 59
[2020-08-30 14:27] LABS: ABG BASE EXCESS -3.7 MMOL/L (-2.5-2.5); ABG OXYGEN SATURATION 96 % (94-100); ABG PCO2 44 MMHG (35-45); ABG PO2 116 MMHG (79-93); ABG TCO2 23.3 MMOL/L (21.0-31.0)
[2020-08-30 14:28] LABS: ABG PH 7.31 (7.37-7.43); ALLENS TEST YES-POS; INSPIRED O2 ROOM AIR; VENTILATOR NO
[2020-08-30 14:29] LABS: PATIENT TEMP 35.9
[2020-08-30] MEDS ORDERED: LACTATED RINGERS 1,000 ML IV ONE ×2 (14:45→15:30)
[2020-08-30 15:11] LABS: BASOPHILS % (AUTO) 1 % (0-10); EOSINOPHILS % (AUTO) 1 % (0-10); HEMATOCRIT 34 % (35-52); HEMOGLOBIN 10.4 g/dL (11.5-16.0); LYMPHOCYTES # (AUTO) 0.9 10^3/uL (1.0-4.0); LYMPHOCYTES % (AUTO) 15 % (12-44); MEAN CORPUSCULAR HEMOGLOBIN 31 pg (25-34); MEAN CORPUSCULAR HGB CONC 31 g/dL (32-36); MEAN CORPUSCULAR VOLUME 100 fL (80-99); MEAN PLATELET VOLUME 9.7 fL (9.0-12.2); MONOCYTES # (AUTO) 0.7 10^3/uL (0.0-1.0); MONOCYTES % (AUTO) 12 % (0-12); NEUTROPHILS # (AUTO) 4.1 10^3/uL (1.8-7.8); NEUTROPHILS % (AUTO) 72 % (42-75); PLATELET COUNT 310 10^3/uL (130-400); WHITE BLOOD COUNT 5.7 10^3/uL (4.3-11.0)
[2020-08-30 15:13] LABS: POTASSIUM 3.7 MMOL/L (3.6-5.0)
[2020-08-30 15:15] LABS: CALCIUM 9.1 MG/DL (8.5-10.1)
[2020-08-30 15:16] LABS: TOTAL PROTEIN 7.1 GM/DL (6.4-8.2)
[2020-08-30 15:18] LABS: BILIRUBIN,TOTAL 0.6 MG/DL (0.1-1.0)
[2020-08-30 15:20] LABS: CREATININE SERUM 1.61 MG/DL (0.60-1.30)
--- NOTE | 2020-08-30 15:30 | Diagnostic Imaging Report ---
INDICATION: SOA, cough. TECHNIQUE: Single view chest 3:14 p.m. CORRELATION STUDY: 03/28/2018. FINDINGS: Heart size is borderline, Vasculature overall within normal limits. Minimally tortuous course of the thoracic aorta. Elevated right diaphragm with likely atelectasis at the right lung base. No definitive consolidating infiltrate. Postoperative changes of bilateral shoulders. IMPRESSION: Stable chest demonstrates no acute abnormality. Dictated by: Dictated on workstation # [id number]
[2020-08-30 16:09] LABS: FIBRIN DEGRADATION PRODUCTS 0.39 UG/ML (0.00-0.49); PROTHROMBIN TIME PATIENT 13.8 SEC (12.2-14.7)
[2020-08-30 18:00] VITALS: BP 148/81
== END 2020-08-30 18:00 | disposition home or self-care (01) ==
LOC: EDUNIT# 13:49 → ER 13:51
DX: E86.0 Dehydration (principal); B34.9 Viral infection, unspecified; I10 Essential (primary) hypertension; F41.9 Anxiety disorder, unspecified; E78.00 Pure hypercholesterolemia, unspecified; G89.29 Other chronic pain; M54.9 Dorsalgia, unspecified; Z20.828 Contact with and (suspected) exposure to other viral communicable diseases; Z82.61 Family history of arthritis; Z82.49 Family history of ischemic heart disease and other diseases of the circulatory system; Z79.891 Long term (current) use of opiate analgesic
CPT/HCPCS: 71045; 80053; 82805; 85025; 85379; 85610; 85730; 86141; 87040; 87804; 93005; 99285; U0002; 36415; 87635

== ENCOUNTER → 2021-01-30 | Outpatient (CLI) | payer MEDICARE, OTHER ==
[~2021-01-30] MED LIST changes: -FOLI1TAB24 PO; +FOLI1TAB33 PO
--- NOTE | 2021-01-30 15:26 | Diagnostic Imaging Report ---
Indication: Fall and pain. Time of exam: 10:43 AM SI joints are unremarkable. Sacral arcuate lines appear to be intact. No definite fracture is seen. No definite coccyx fracture is seen. Postoperative changes of the right hip are noted. Impression: No acute abnormality is detected. Dictated by: Dictated on workstation # [id number]
== END ==
LOC: RAD 10:24
PROVIDERS: ATTEND Nurse Practitioner Family
DX: M53.3 Sacrococcygeal disorders, not elsewhere classified (principal)
CPT/HCPCS: 72220

== ENCOUNTER 2021-08-21 08:10 | Emergency (ER) | payer MEDICARE, OTHER ==
[~2021-08-21] VITALS: Ht 170.2 cm; Wt 71.2 kg
[~2021-08-21 08:10] MED LIST changes: +CYCL10TA25 PO; -CYCL10TA9 PO; -DOXY100C2 PO; +DOXY100C5 PO; +MULT-1054 PO; -MULT-985 PO; -SULF1TAB35 PO
--- NOTE | 2021-08-21 08:47 | ED Chest Pain ---
General Chief Complaint: Chest Pain Stated Complaint: CP Nursing Triage Note: PT AMBULATE TO ROOM WITH C/O CHEST PAIN SINCE 0700 THIS MORNING. PT REPORTS HAVING LEFT SHOULDER SURGERY ON TUESDAY. Source: patient Exam Limitations: no limitations History of Present Illness Date Seen by Provider: Aug 21, 2021 Time Seen by Provider: 08:40 Initial Comments Patient is a 71-year-old female who presents to the emergency department with a chief complaint of left lateral chest pain radiating up into her shoulder. She recently had shoulder replacement surgery on Tuesday of this week. Patient states she has noticed the pain since about 7:00 this morning. She denies any associated nausea, she is a little bit short of breath. No history of emphysema/COPD. No reported fevers. Nothing makes the pain any better, taking a deep breath makes it worse. Patient is not on blood thinners. She states she has been fairly active since her surgery. She was discharged from the hospital yesterday. She has no known coronary artery disease. She is treated for hypertension. Patient is given aspirin and sublingual nitroglycerin on arrival, the nitro seemed to make her pain a little bit better. No leg swelling. The patient is "sore all over". Quite tender to palpation in the chest wall and the legs and the abdomen. No reported dysuria urgency or frequency. No black or bloody stools. She is having normal bowel movements. All other review of systems reviewed and negative except as stated. Timing/Duration: 1-3 hours Severity/Quality: aching Location: other (left chest) Radiation: back Activities at Onset: none ASA po JAVA ENGINEER: No NTG SL JAVA ENGINEER: No Allergies and Home Medications Allergies Coded Allergies: No Known Drug Allergies (Unverified , 09/03/19) Patient Home Medication List Home Medication List Reviewed: Yes Alprazolam (Xanax) 0.25 Mg Tablet, 0.25 MG PO Q6H, (Reported) Entered as Reported by: MILADYS PRINCE on 10/30/18 1507 Amlodipine Besylate (Norvasc) 5 Mg Tablet, 5 MG PO DAILY, (Reported) Entered as Reported by: REGAL CAMACHO on 11/01/16 1310 Celecoxib (Celebrex) 200 Mg Capsule, 200 MG PO BID, (Reported) Entered as Reported by: MILADYS PRINCE on 10/30/18 1501 Cholecalciferol (Vitamin D3) (Vitamin D-3) 2,000 Unit Capsule, 2,000 UNIT PO HS, (Reported) Entered as Reported by: REGLA CAMACHO on 11/01/16 1320 Cyanocobalamin (Vitamin B-12) (Vitamin B12) 2,500 Mcg Tablet, 2,500 MCG PO DAILY, (Reported) Entered as Reported by: MARITZA JAIN on 09/03/19 1025 Cyclobenzaprine HCl (Cyclobenzaprine HCl) 10 Mg Tablet, 10 MG PO PRN, (Reported) Entered as Reported by: MARITZA JAIN on 09/03/19 1025 Estradiol (Estradiol Tablet) 0.5 Mg Tablet, 0.5 MG PO DAILY, (Reported) Entered as Reported by: MILADYS PRINCE on 10/30/18 1501 Eyelid Cleanser Combination #9 (Systane) 1 Each Towelette, 1 EACH TP TID, (Reported) Entered as Reported by: MARITZA JAIN on 09/03/19 1025 Ezetimibe (Ezetimibe) 10 Mg Tablet, 10 MG PO DAILY, (Reported) Entered as Reported by: MILADYS PRINCE on 10/30/18 1504 Fenofibrate Nanocrystallized (Fenofibrate) 145 Mg Tablet, 145 MG PO DAILY, (Reported) Entered as Reported by: MILADYS PRINCE on 10/30/18 1501 Fluticasone Propionate (Flonase Allergy Relief) 9.9 Ml [place].susp, 1 SPRAY NSEACH BID, (Reported) Entered as Reported by: MILADYS PRINCE on 10/30/18 1501 Folic Acid (Folic Acid) 1 Mg Tablet, 1 MG PO DAILY, (Reported) Entered as Reported by: MARITZA JAIN on 09/03/19 1025 Gabapentin (Gabapentin) 100 Mg Capsule, 2 CAP PO DAILY, (Reported) Entered as Reported by: MILADYS PRINCE on 10/30/18 1501 Gabapentin (Gabapentin) 100 Mg Capsule, 4 CAP PO HS, (Reported) Entered as Reported by: MILADYS PRINCE on 10/30/18 1518 Hydrocodone Bit/Acetaminophen (HYDROcodone/APAP 10/325 TABLET) 1 Each Tablet, 1 TAB PO Q4H PRN for MODERATE PAIN, (Reported) Entered as Reported by: REGLA CAMACHO on 11/01/16 1326 Hyoscyamine Sulfate (Hyoscyamine Sulfate ER) 0.375 Mg Tab.er.12h, 0.375 MG PO BID, (Reported) Entered as Reported by: REGLA CAMACHO on 11/01/16 1320 Infliximab (Remicade) 100 Mg Soln, 300 MG IV EVERY 8 WEEKS, (Reported) Entered as Reported by: REGLA CAMACHO on 11/01/16 1320 L.acidoph & Paracasei,B.lactis (Probiotic) 1 Each Capsule, 1 EACH PO BID, (Reported) Entered as Reported by: MARITZA JAIN on 09/03/19 1025 Linaclotide (Linzess) 72 Mcg Capsule, 72 MCG PO DAILY, (Reported) Entered as Reported by: MILADYS PRINCE on 10/30/18 1501 Methotrexate Tablet (Methotrexate Tablet) 2.5 Mg Tablet, 15 MG PO We, (Reported) Entered as Reported by: REGLA CAMACHO on 11/01/16 1320 Multivitamin (Daily Vitamin Formula) 1 Each Tablet, 1 EACH PO DAILY, (Reported) Entered as Reported by: MARITZA JAIN on 09/03/19 1025 Multivitamin with Minerals (Hair, Skin & Nails) 1 Each Tablet, 1 EACH PO DAILY, (Reported) Entered as Reported by: MARITZA JAIN on 09/03/19 1025 Nitrofurantoin Macrocrystal (Macrodantin) 50 Mg Capsule, 50 MG PO DAILY, (Reported) Entered as Reported by: MILADYS PRINCE on 10/30/18 1501 Nitrofurantoin Monohyd/M-Cryst (Macrobid 100 mg Capsule) 100 Mg Capsule, 1 TAB PO BID Prescribed by: MILADYS PRINCE on 09/04/19 1141 Omeprazole (Omeprazole) 20 Mg Capsule.dr, 20 MG PO BID, (Reported) Entered as Reported by: REGLA CAMACHO on 11/01/16 1310 Ropinirole HCl (Ropinirole HCl) 1 Mg Tablet, 1 MG PO HS, (Reported) Entered as Reported by: MARITZA JAIN on 09/03/19 1025 Tamsulosin HCl (Flomax) 0.4 Mg Cap, 0.4 MG PO DAILY Prescribed by: MILADYS PRINCE on 09/04/19 1141 Tramadol HCl (Tramadol HCl) 50 Mg Tablet, 1-2 TAB PO Q4H Prescribed by: MILADYS PRINCE on 09/04/19 1141 Trazodone HCl (Trazodone HCl) 50 Mg Tablet, 75 MG PO HS, (Reported) Entered as Reported by: MILADYS PRINCE on 10/30/18 1501 Turmeric Root Extract (Turmeric) 538 Mg Capsule, 538 MG PO DAILY, (Reported) Entered as Reported by: MARITZA JAIN on 09/03/19 1025 Valsartan (Valsartan) 160 Mg Tablet, 160 MG PO DAILY, (Reported) Entered as Reported by: MARITZA JAIN on 09/03/19 1025 Review of Systems Review of Systems Constitutional: see HPI EENTM: No Symptoms Reported Respiratory: SOA at Rest Cardiovascular: Chest Pain Gastrointestinal: No Symptoms Reported Genitourinary: No Symptoms Reported Musculoskeletal: muscle cramps Skin: no symptoms reported Psychiatric/Neurological: No Symptoms Reported All Other Systems Reviewed Negative Unless Noted: Yes Past Hvowsyd-Hmywpr-Tdgaha Hx Patient Social History Tobacco Use?: No Smoking Status: Never a Smoker Smokeless Tobacco Frequency: Never a User Use of E-Cig and/or Vaping Iam: Never a User Substance use?: No Alcohol Use?: Yes Alcohol Frequency: Once in a while Pt feels they are or have been: No Immunizations Up To Date Tetanus Booster (TDap): More than 5yrs PED Vaccines UTD: No First/Initial COVID19 Vaccinat: 01/2021 Second COVID19 Vaccination Huy: 01/2021 COVID19 Vaccine Supervisor Cook Room: GERBER Seasonal Allergies Seasonal Allergies: No Past Medical History Surgeries: Yes (MULTIPLE ORTHOPEDIC SURGERIES-HAS HAD OVER 40 SURGIES) Breast, Gallbladder, Hysterectomy, Joint Replacement, Orthopedic, Renal Respiratory: No Pneumonia Cardiac: Yes High Cholesterol, Hypertension Neurological: No 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 Disorders: No Female 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 Disorders: Denies SKEIN WASHER History: Hysterectomy, Menopausal Sexually Transmitted Disease: No HIV/AIDS: No Genitourinary: Yes Kidney Stones, UTI-Chronic Gastrointestinal: Yes Diverticulosis Musculoskeletal: Yes (CHRONIC GENERALIZED PAIN AND JOINT PAIN ; CHRONIC NECK PAIN) Degenerate Disk Disease, Arthritis, Rheumatoid Arthritis, Chronic Back Pain Endocrine: No HEENT: No (CONTACTS) Loss of Vision: Denies Hearing Impairment: Denies Cancer: No Psychosocial: Yes Anxiety Integumentary: Yes (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, CELULITIS 2019) Blood Disorders: No Adverse Reaction/Blood Tranf: No (HAS HAD BLOOD WITH NO REACTION) Family Medical History Alzheimer's disease G8 BROTHER G8 SISTER Arthritis G8 BROTHER Cataracts G8 SISTER Dementia G8 SISTER Fibrocystic disease of breast G8 SISTER Hypertension 19 FATHER 19 MOTHER G8 BROTHER G8 BROTHER G8 SISTER G8 SISTER Kidney disease G8 BROTHER No Family History of: AIDS Abdominal aortic aneurysm [place]'s disease Alcoholism Aphasia Asthma Cancer of mouth Cardiovascular disease Colon cancer Completed stroke Congenital disease Congenital heart disease Coronary thrombosis Cystic fibrosis Diabetes mellitus Drug abuse Dysphasia Gastroenteritis Glaucoma Headache disorder Hypercholesterolemia Infertility Myocardial infarction Neoplasm Not obtainable due to adoption Osteoporosis Parkinson's disease Prostate cancer Psychosocial problem Respiratory disorder Seizure disorder Severe allergy Thyroid disease Tuberculosis Visual disorder Heart Disease, Other Conditions/Hx Physical Exam Vital Signs Vital Signs - First Documented 08/21/21 08/21/21 08:11 09:33 Temp 36.4 Pulse 108 Resp 17 B/P (MAP) 145/83 (103) Pulse Ox 88 O2 Delivery Room Air O2 Flow Rate 2.00 Capillary Refill : Less Than 3 Seconds Height, Weight, BMI Height: 5'7.00" Weight: 153lbs. 0.0oz. 69.550817wy; 24.00 BMI Method:Stated General Appearance: WD/WN, Anxious HEENT: PERRL/EOMI Neck: Normal Inspection Respiratory: Lungs Clear, Normal Breath Sounds, No Accessory Muscle Use, No Respiratory Distress, Other (Chest wall diffusely tender to palpation) Cardiovascular: Regular Rate, Rhythm, Normal Peripheral Pulses Gastrointestinal: Normal Bowel Sounds, Soft, Tenderness (Diffuse tenderness over the anterior abdominal wall) Extremity: Normal Capillary Refill, Normal Inspection, Non Tender, No Calf Tenderness, Other (left arm in shoulder immobilizer, NVI) Neurologic/Psychiatric: Alert, Oriented x3, No Motor/Sensory Deficits, Normal Mood/Affect, horse race starter II-XII Norm as Tested Procedures/Interventions Suture Size: 4-0 Progress/Results/Core Measures Results/Orders Lab Results Laboratory Tests Test 08/21/21 08:34 08/21/21 12:06 Range/Units White Blood Count 9.1 4.3-11.0 10^3/uL Red Blood Count 3.58 L 3.80-5.11 10^6/uL Hemoglobin 11.8 11.5-16.0 g/dL Hematocrit 36 35-52 % Mean Corpuscular Volume 99 80-99 fL Mean Corpuscular Hemoglobin 33 25-34 pg Mean Corpuscular Hemoglobin Concent 33 32-36 g/dL Red Cell Distribution Width 14.4 10.0-14.5 % Platelet Count 326 130-400 10^3/uL Mean Platelet Volume 9.9 9.0-12.2 fL Immature Granulocyte % (Auto) 1 % Neutrophils (%) (Auto) 69 42-75 % Lymphocytes (%) (Auto) 13 12-44 % Monocytes (%) (Auto) 15 H 0-12 % Eosinophils (%) (Auto) 2 0-10 % Basophils (%) (Auto) 0 0-10 % Neutrophils # (Auto) 6.3 1.8-7.8 10^3/uL Lymphocytes # (Auto) 1.2 1.0-4.0 10^3/uL Monocytes # (Auto) 1.4 H 0.0-1.0 10^3/uL Eosinophils # (Auto) 0.2 0.0-0.3 10^3/uL Basophils # (Auto) 0.0 0.0-0.1 10^3/uL Immature Granulocyte # (Auto) 0.1 0.0-0.1 10^3/uL Prothrombin Time 13.3 12.2-14.7 SEC INR Comment 1.0 0.8-1.4 Activated Partial Thromboplast Time 33 24-35 SEC D-Dimer 2.07 H 0.00-0.49 UG/ML Sodium Level 138 135-145 MMOL/L Potassium Level 3.6 3.6-5.0 MMOL/L Chloride Level 102 98-107 MMOL/L Carbon Dioxide Level 26 21-32 MMOL/L Anion Gap 10 5-14 MMOL/L Blood Urea Nitrogen 14 7-18 MG/DL Creatinine 0.74 0.60-1.30 MG/DL Estimat Glomerular Filtration Rate 77 BUN/Creatinine Ratio 19 Glucose Level 105 70-105 MG/DL Calcium Level 10.0 8.5-10.1 MG/DL Total Creatine Kinase 184 H 29-168 U/L Troponin I < 0.028 < 0.028 <0.028 NG/ML My Orders Orders - VERENA MERCEDES MD Ed Iv/Invasive Line Start (08/21/21 08:48) Cbc With Automated Diff (08/21/21 08:48) Basic Metabolic Panel (08/21/21 08:48) Troponin I Severo (08/21/21 08:48) Creatine Kinase (08/21/21 08:48) Ekg Tracing (08/21/21 08:48) Chest 1 View, Ap/Pa Only (08/21/21 08:48) Fibrin Degradation Products (08/21/21 08:48) Protime With Inr (08/21/21 08:50) Partial Thromboplastin Time (08/21/21 08:50) Aspirin Chewable Tablet (Baby Aspirin Ch (08/21/21 09:00) Nitroglycerin 0.4 Mg Btl 25's (Nitrostat (08/21/21 09:00) Ct Angio Chest W (08/21/21 09:44) Iohexol Injection (Omnipaque 350 Mg/Ml 1 (08/21/21 10:00) Received Contrast (Hold Metformin- Contr (08/21/21 10:00) Ns (Ivpb) (Sodium Chloride 0.9% Ivpb Bag (08/21/21 10:00) Sodium Chloride Flush (Catheter Flush Sy (08/21/21 10:00) Troponin I [place] (08/21/21 11:43) Hydrocodone/Apap 10/325 Tablet (Lortab 1 (08/21/21 13:15) Medications Given in ED Current Medications Medications Dose Ordered Sig/Arcenio Route Start Time Stop Time Status Last Admin Dose Admin Acetaminophen/ Hydrocodone Bitart 1 ea ONCE ONCE PO 08/21/21 13:15 08/21/21 13:16 DC 08/21/21 13:07 1 EA Iohexol 75 ml ONCE ONCE IV 08/21/21 10:00 08/21/21 10:01 DC 08/21/21 10:04 64 ML Nitroglycerin PHARMACY TO DOSE PRN PRN SL 08/21/21 09:00 08/21/21 10:18 0.4 MG Sodium Chloride 10 ml NEEDED PRN IV 08/21/21 10:00 08/21/21 10:04 10 ML Sodium Chloride 100 ml ONCE ONCE IV 08/21/21 10:00 08/21/21 10:01 DC 08/21/21 10:04 80 ML Vital Signs/I&O 08/21/21 08/21/21 08:11 09:33 Temp 36.4 Pulse 108 Resp 17 B/P (MAP) 145/83 (103) Pulse Ox 88 O2 Delivery Room Air Nasal Cannula O2 Flow Rate 2.00 Blood Pressure Mean: 103 Progress Progress Note : Time: 13:25 Progress Note 71-year-old female presents with chest pain. Evaluation today includes a physical exam, CBC, chemistry, 2 cardiac enzymes, EKG and chest x-ray. Work-up is unremarkable with 2 - troponins. She has stable vital signs. No concern for infectious process. She did have a quite elevated D-dimer, CTA pulmonary was done which showed no evidence of pulmonary embolism. Patient is treated with 10 mg of hydrocodone here for her shoulder pain. I suspect strongly that her chest pain is related to her shoulder surgery 3 days ago. Patient is given good return precautions to include if she has a recurrence of chest pain especially with nausea, sweating, shortness of breath or other concerns that she should come back to the emergency room for reevaluation. She is comfortable with this plan of care. All questions are sought and answered. Patient is instructed to follow-up with her surgeon as well as her primary care physician, Dr. Crisostomo. is at the bedside and is also agreeable with the plan. Initial ECG Impression Date: Aug 21, 2021 Initial ECG Impression Time: 08:24 Initial ECG Rate: 103 Initial ECG Rhythm: S.Tach Initial ECG Intervals: Normal Initial ECG Impression: Normal Diagnostic Imaging Diagonstic Imaging: Xray Plain Films/CT/US/NM/MRI: chest Comments [facility]. [place], [place] NAME: SENTHIL FRANCISCO [facility] REC#: [id number] PT STATUS: REG ER : 1950 PHYSICIAN: VERENA MERCEDES MD ADMIT DATE: 08/21/21/ER Draft Date of Exam:08/21/21 CHEST 1 VIEW, AP/PA ONLY INDICATION: Chest pain. TIME OF EXAM: 9:40 AM Correlation is made with prior chest from 08/30/2020. Heart size is normal. Right hemidiaphragm is chronically elevated. There is resultant subsegmental atelectasis right base. Otherwise lungs are clear. There is no effusion or pneumothorax. Postoperative changes of reverse shoulder arthroplasty bilaterally is noted. IMPRESSION: Right basilar subsegmental atelectasis. The study is otherwise unremarkable. Dictated on workstation # [id number] Dict: 08/21/21 0957 Trans: 08/21/21 1000 LORENZO [id number] Interpreted by: SVEN NAPIER MD Electronically signed by: FANI VIA [place], [place] NAME: SENTHIL FRANCISCO I [facility] REC#: [id number] PT STATUS: REG ER : 1950 PHYSICIAN: VERENA MERCEDES MD ADMIT DATE: 08/21/21/ER Draft Date of Exam:08/21/21 CT ANGIO CHEST W PROCEDURE: CT angiography of the chest with contrast. TECHNIQUE: Multiple contiguous axial images were obtained through the chest after uneventful bolus administration of intravenous contrast. 3D reconstructed CTA MIP acquisitions were also performed. Auto Exposure Controls were utilized during the CT exam to meet ALARA standards for radiation dose reduction. INDICATION: Postop chest pain COMPARISON: 04/05/2019. There are no intraluminal pulmonary arterial filling defects. There is no pulmonary arterial embolus. The atherosclerotic aorta patent and nonaneurysmal and nonacute. There is no pneumothorax or pneumomediastinum. There is bilateral perihilar and bibasilar lower lobe subsegmental curvilinear zones of partial atelectasis. No findings felt suggestive of joyce pneumonia. There are bilateral shoulder replacements, the left recent and believed to account for small amounts of regional soft tissue gas and edema. No suspicious chest wall abnormality. IMPRESSION: Negative for PE or acute aortic disease. The zones of partial atelectasis and recent left shoulder replacement. No acute appearing cardiopulmonary pathology. Dictated on workstation # [id number] Dict: 08/21/21 1013 Trans: 08/21/21 1018 DOMITILA [id number] Interpreted by: KALIE ONTIVEROS Electronically signed by: Departure Impression Primary Impression: Chest pain Qualified Codes: R07.1 - Chest pain on breathing Additional Impression: Post-op pain Disposition: HOME, SELF-CARE Condition: Stable Departure-Patient Inst. Decision time for Depature: 13:25 Referrals: SHYAM CRISOSTOMO MD (PCP/Family) Primary Care Physician Patient Instructions: Chest Pain That Is Not Caused by the Heart (DC) Add. Discharge Instructions: Continue your daily medications as prescribed. Pain medications every 4-6 hours as needed for shoulder pain. Please take daily stool softeners, or your Linzess daily. Return to the emergency room if you have a return of chest pain especially with shortness of breath, nausea or sweating. Please follow-up with your primary care physician. Copy Copies To 1: SHYAM CRISOSTOMO MD, KATHRYN M MD Aug 21, 2021 08:47
[2021-08-21 08:55] LABS: BASOPHILS % (AUTO) 0 % (0-10); EOSINOPHILS # (AUTO) 0.2 10^3/uL (0.0-0.3); EOSINOPHILS % (AUTO) 2 % (0-10); HEMATOCRIT 36 % (35-52); HEMOGLOBIN 11.8 g/dL (11.5-16.0); LYMPHOCYTES # (AUTO) 1.2 10^3/uL (1.0-4.0); LYMPHOCYTES % (AUTO) 13 % (12-44); MEAN CORPUSCULAR HEMOGLOBIN 33 pg (25-34); MEAN CORPUSCULAR HGB CONC 33 g/dL (32-36); MEAN CORPUSCULAR VOLUME 99 fL (80-99); MEAN PLATELET VOLUME 9.9 fL (9.0-12.2); MONOCYTES # (AUTO) 1.4 10^3/uL (0.0-1.0); MONOCYTES % (AUTO) 15 % (0-12); NEUTROPHILS # (AUTO) 6.3 10^3/uL (1.8-7.8); NEUTROPHILS % (AUTO) 69 % (42-75); PLATELET COUNT 326 10^3/uL (130-400); WHITE BLOOD COUNT 9.1 10^3/uL (4.3-11.0)
[2021-08-21] MEDS ORDERED: ASPIRIN 81 MG CHEW (CHILDREN'S ASA) PO SCH (09:00)
[2021-08-21 09:04] LABS: CHLORIDE 102 MMOL/L (98-107); POTASSIUM 3.6 MMOL/L (3.6-5.0); SODIUM 138 MMOL/L (135-145)
[2021-08-21 09:05] LABS: FIBRIN DEGRADATION PRODUCTS 2.07 UG/ML (0.00-0.49); GLUCOSE 105 MG/DL (70-105); PROTHROMBIN TIME PATIENT 13.3 SEC (12.2-14.7)
[2021-08-21 09:07] LABS: CARBON DIOXIDE 26 MMOL/L (21-32)
[2021-08-21 09:09] LABS: CREATININE SERUM 0.74 MG/DL (0.60-1.30); GFR ESTIMATED 77
[2021-08-21 09:10] LABS: BUN/CREATININE RATIO 19
[2021-08-21 09:12] LABS: CREATINE KINASE 184 U/L (29-168)
[2021-08-21] MEDS: NITROGLYCERIN 0.4 MG SL TABS BTL 25'S SL PRN ×3 (09:20→10:18)
[2021-08-21] MEDS ORDERED: CATHETER FLUSH 10 ML SYR IV PRN (10:00)
[2021-08-21] MEDS ORDERED: HOLD METFORMIN - RECEIVED CONTRAST 20 ML VIAL IV SCH (10:00)
[2021-08-21] MEDS ORDERED: IOHEXOL 350 MG/ML 100 ML (OMNIPAQUE 350) VIAL IV ONE (10:00)
[2021-08-21] MEDS ORDERED: NS 100 ML (IVPB) BAG IV ONE (10:00)
--- NOTE | 2021-08-21 10:00 | Diagnostic Imaging Report ---
INDICATION: Chest pain. TIME OF EXAM: 9:40 AM Correlation is made with prior chest from 08/30/2020. Heart size is normal. Right hemidiaphragm is chronically elevated. There is resultant subsegmental atelectasis right base. Otherwise lungs are clear. There is no effusion or pneumothorax. Postoperative changes of reverse shoulder arthroplasty bilaterally is noted. IMPRESSION: Right basilar subsegmental atelectasis. The study is otherwise unremarkable. Dictated by: Dictated on workstation # [id number]
--- NOTE | 2021-08-21 10:19 | Diagnostic Imaging Report ---
PROCEDURE: CT angiography of the chest with contrast. TECHNIQUE: Multiple contiguous axial images were obtained through the chest after uneventful bolus administration of intravenous contrast. 3D reconstructed CTA MIP acquisitions were also performed. Auto Exposure Controls were utilized during the CT exam to meet ALARA standards for radiation dose reduction. INDICATION: Postop chest pain COMPARISON: 04/05/2019. There are no intraluminal pulmonary arterial filling defects. There is no pulmonary arterial embolus. The atherosclerotic aorta patent and nonaneurysmal and nonacute. There is no pneumothorax or pneumomediastinum. There is bilateral perihilar and bibasilar lower lobe subsegmental curvilinear zones of partial atelectasis. No findings felt suggestive of joyce pneumonia. There are bilateral shoulder replacements, the left recent and believed to account for small amounts of regional soft tissue gas and edema. No suspicious chest wall abnormality. IMPRESSION: Negative for PE or acute aortic disease. The zones of partial atelectasis and recent left shoulder replacement. No acute appearing cardiopulmonary pathology. Dictated by: Dictated on workstation # [id number]
[2021-08-21 13:40] VITALS: BP 132/77
== END 2021-08-21 13:40 | disposition home or self-care (01) ==
LOC: EDUNIT# 08:10 → ER 08:13
DX: G89.18 Other acute postprocedural pain (principal); R07.9 Chest pain, unspecified; I10 Essential (primary) hypertension; F41.9 Anxiety disorder, unspecified; E78.00 Pure hypercholesterolemia, unspecified; G89.29 Other chronic pain; M54.9 Dorsalgia, unspecified; Z86.16 Personal history of COVID-19; Z79.899 Other long term (current) drug therapy; Z79.891 Long term (current) use of opiate analgesic
CPT/HCPCS: 36415; 71045; 71275; 80048; 82550; 84484; 85025; 85379; 85610; 85730; 93005

== ENCOUNTER → 2022-02-11 | Outpatient (CLI) | payer MEDICARE, OTHER ==
[~2022-02-11] MED LIST changes: +HYOS0.3738 PO
--- NOTE | 2022-02-11 16:39 | Diagnostic Imaging Report ---
INDICATION: Pain in the lateral left breast. CORRELATION is made with diagnostic mammogram earlier the same day. Sonographic interrogation of the area of pain in the lateral left breast was performed. No sonographic abnormality is identified. No solid or cystic mass is detected. IMPRESSION: BI-RADS Category 1 No sonographic abnormality is identified. ACR BI-RADS Category 1: Negative. Result letter will be mailed to the patient. Note: At least 10% of breast cancer is not imaged by mammography. Dictated by: Dictated on workstation # [id number]
--- NOTE | 2022-02-11 16:53 | Diagnostic Imaging Report ---
INDICATION: Bilateral breast pain and left breast lump. CORRELATION is made with prior mammograms of 02/29/2020 and 03/31/2018. 2-D and 3-D bilateral diagnostic mammography was performed with CAD. BB marker was placed at the area pain and nodularity lateral left breast. Scattered fibroglandular densities are identified bilaterally. There are benign calcifications bilaterally. No discrete mass is detected. No malignant-appearing microcalcifications are seen. Axillae are unremarkable. IMPRESSION: BI-RADS Category 0 No mammographic features suspicious for malignancy are identified. Even so, directed sonographic interrogation of the area of palpable abnormality in the outer left breast is recommended and will be performed today. ACR BI-RADS Category 0: Incomplete. (Needs additional imaging evaluation). Result letter will be mailed to the patient. Note: At least 10% of breast cancer is not imaged by mammography. Dictated by: Dictated on workstation # [id number]
== END ==
LOC: RAD 12:51
PROVIDERS: ATTEND Nurse Practitioner Family
DX: N63.20 Unspecified lump in the left breast, unspecified quadrant (principal)
CPT/HCPCS: 76642; 77066; G0279; 77062

== ENCOUNTER 2022-08-18 05:33 | Outpatient (CLI) | payer MEDICARE, OTHER ==
[~2022-08-18] VITALS: Ht 170.2 cm; Wt 70.0 kg
[~2022-08-18 05:33] MED LIST changes: -OLME40TA12 PO; +OLME40TA70 PO
== END 2022-08-20 15:36 | disposition home or self-care (01) ==
LOC: PREOP 05:33
PROVIDERS: ATTEND Urology
DX: Z01.818 Encounter for other preprocedural examination (principal)

== ENCOUNTER → 2022-08-21 | Outpatient (CLI) | payer MEDICARE, OTHER ==
--- NOTE | 2022-08-21 17:34 | Diagnostic Imaging Report ---
INDICATION: Pneumonia. COMPARISON: 08/21/2021. TECHNIQUE: Frontal and lateral radiographs of the chest dated 08/21/2022. FINDINGS: The cardiac silhouette is within normal limits in size. No significant pulmonary vascular congestion. The lungs are clear of focal pulmonary opacity. No pleural effusion. No pneumothorax. Bilateral shoulder arthroplasties are present. Background vascular calcifications. Scattered osseous degenerative changes without acute osseous abnormality. IMPRESSION: No acute cardiopulmonary abnormality with chronic and postsurgical changes, as above. Dictated by: Dictated on workstation # [id number]
== END ==
LOC: RAD 17:08
PROVIDERS: ATTEND Registered Nurse Critical Care Medicine
DX: J15.8 Pneumonia due to other specified bacteria (principal); Z98.890 Other specified postprocedural states
CPT/HCPCS: 71046

== ENCOUNTER 2022-08-25 05:52 | Day surgery (SDC) | payer MEDICARE, OTHER ==
[2022-08-25] VITALS (11 sets, daily range): BP systolic 97–157; BP diastolic 64–92
[~2022-08-25] VITALS: Ht 170 cm; Wt 70.0 kg
[2022-08-25] MEDS ORDERED: cefTRIAXone 1 GM PRE-MIX 50 ML IV ONE ×2 (06:15→06:29)
[2022-08-25] MEDS: LACTATED RINGERS 1,000 ML IV PRN ×2 (06:32→07:34)
--- NOTE | 2022-08-25 07:10 | Progress Note-Pre Operative ---
Pre-Operative Progress Note Date of Available H&P: Aug 25, 2022 Date H&P Reviewed: Aug 25, 2022 Time H&P Reviewed: 07:09 Changes from last HP NONE Pre-Operative Diagnosis: CYSTOCELE AND BASILIO OSCAR LEAVITT MD Aug 25, 2022 07:10
--- NOTE | 2022-08-25 07:11 | Progress Note-Post Operative ---
Post-Operative Progess Note Surgeon (s)/Custodian Athletic Equipment (s) Surgeon OSCAR LEAVITT MD Custodian Athletic Equipment: NONE Pre-Operative Diagnosis CYSTOCELE AND BASILIO Post-Operative Diagnosis SAME Procedure & Operative Findings Date of Procedure 08/25/22 Procedure Performed/Findings ANTERIOR REPAIR, PVS, AND CYSTOSCOPY Anesthesia Type SPINAL Estimated Blood Loss Estimated blood loss (mL): NEGLIGIBLE Specimens/Packing Specimens Removed NONE TO PATH PackinGM ESTRACE VAG PACK OSCRA LEAVITT MD Aug 25, 2022 07:11
[2022-08-25] MEDS ORDERED: BUP/EPI 0.25% 1:200,000 (MARCAINE) 30 ML VIAL ONE (07:12)
[2022-08-25] MEDS ORDERED: ESTRADIOL VAGINAL CREAM 42.5 GM (ESTRACE) VG ONE (07:12)
[2022-08-25] MEDS ORDERED: MIDAZOLAM 2 MG/2 ML (VERSED) VIAL ONE (07:28)
[2022-08-25] MEDS ORDERED: PROPOFOL INJECTION 50 ML IV ONE (07:48)
[2022-08-25] MEDS ORDERED: BUP/EPI 0.25% 1:200,000 (MARCAINE) 30 ML VIAL INJ ONE (08:02)
[2022-08-25] MEDS: ESTRADIOL VAGINAL CREAM 42.5 GM (ESTRACE) VG ONE ×2 (08:05→08:06)
--- NOTE | 2022-08-25 08:40 | Anesthesia-Regional Post-Op ---
Regional Patient Condition Mental Status: Alert, Oriented x3 Circulation: Same as Pre-Op Headache: Absent Sensation: Full Recovery Motor Block: Absent Post Op Complications Complications None Follow Up Care/Instructions Patient Instructions None needed. Anesthesia/Patient Condition Patient is doing well, no complaints, stable vital signs, no apparent adverse anesthesia problems. No complications reported per nursing. SUZAN MINAYA CRNA Aug 25, 2022 08:40
[2022-08-25] MEDS ORDERED: morphine INJ 10 MG/ML 1ML (SYR OR VIAL) IVP ONE (08:45)
[2022-08-25] MEDS ORDERED: ONDANSETRON 4 MG/2 ML (SDV) Z0FRAN IVP PRN (08:45)
[2022-08-25] MEDS ORDERED: MEPERIDINE (DEMEROL) INJ 50 MG/ML IVP ONE (08:45)
[2022-08-25] MEDS ORDERED: BUPIVACAINE 0.5% 30 ML (SENSORCAINE) VIAL ONE (10:17)
[2022-08-25] MEDS: LACTATED RINGERS 1,000 ML IV SCH ×2 (12:27→15:15)
--- NOTE | 2022-08-25 12:47 | OPERATIVE REPORT ---
DATE OF SERVICE: 08/25/2022 PREOPERATIVE DIAGNOSES: Cystocele and stress urinary incontinence. POSTOPERATIVE DIAGNOSES: Cystocele and stress urinary incontinence. OPERATION PERFORMED: Anterior repair, pubovaginal sling and cystoscopy. SURGEON: Gavin Leavitt MD. ANESTHESIA: Spinal. COMPLICATIONS: None. DESCRIPTION OF PROCEDURE: After satisfactory spinal anesthesia, the patient in extended lithotomy position, the genitalia, abdomen and thighs were prepped and draped in the usual sterile fashion. Guo catheter was inserted, draining clear urine. The anterior vaginal wall was infiltrated with Marcaine and epinephrine. A midline incision was made a centimeter proximal to the urethral meatus. Then, the mucosa was dissected off the underlying fascia. Fascia was approximated with a running 2-0 Vicryl interrupted sutures, giving good support to the bladder. I passed the Desara 1 device on both sides using the described technique. The sling was sitting nicely under the mid urethra with no twisting or tension and passage of a curved hemostat easily between it and the underlying urethra. I removed the Guo catheter, performed cystoscopy to confirm the integrity of the bladder, ureters, and urethra with no foreign body, presence of the sling under the mid urethra. I left the bladder half full, removed the cystoscope and performed a manual Valsalva maneuver that was negative. I reinserted a Guo catheter draining clear fluid. I went ahead and excised the excess vaginal mucosa and then approximated the vaginal mucosa with a running 2-0 Vicryl Rapide type suture. Estimated blood loss was negligible. Two grams Estrace vaginal pack was inserted. Urine was clear. The patient tolerated the procedure and anesthesia well and was sent to recovery room in a stable condition. Needle, sponge, and instrument was correct x2. CC: Dr. Crisostomo - requested, unable to deliver. Job ID: [id number] DocumentID: [id number] Dictated Date: 08/25/2022 08:38:58 Director Of Manufacturing Date: 08/25/2022 12:46:00 Dictated By: GAVIN LEAVITT MD [facility]
[2022-08-26] VITALS: BP 158/77
[2022-08-26] MEDS: LACTATED RINGERS 1,000 ML IV SCH
[2022-08-26 03:50] VITALS: BP 151/95
[2022-08-26 07:50] VITALS: BP 153/68
--- NOTE | 2022-08-26 10:23 | Progress Note - Urology ---
Progress Note-Urology Progress Notes/Assess & Plan Progress/Assessment & Plan DOING VERY WELL. VOIDED TWICE WITH MINIMAL PVR AND NO LEAKAGE. HAPPY. DISCHARGE WITH INSTRUCTIONS Final Diagnosis CYSTOCELE WITH BASILIO OSCAR LEAVITT MD Aug 26, 2022 10:23
--- NOTE | 2022-08-26 10:26 | Discharge Inst-Urology ---
Discharge Inst-Urology Reconcile Patient Problems Problems Reviewed?: Yes Final Diagnosis CYSTOCELE AND BASILIO Patient Instructions/Follow Up Plan/Assessment/Instructions Please make appointment to been seen in office in 2 weeks. Rest till then including no driving Keep bowels soft and moving Finish home Levaquin Showers, no bath Increase oral fluids for 48 hours and then as needed. Diet as tolerated. If questions or concerns contact your physician Or seek help at emergency department. OSCAR LEAVITT MD Aug 26, 2022 10:26
== END 2022-08-26 10:55 | disposition home or self-care (01) ==
LOC: SDC 05:52 → WS 10:13 → SDC 08-26 10:55
PROVIDERS: ATTEND Urology
DX: N39.3 Stress incontinence (female) (male) (principal); N81.10 Cystocele, unspecified
CPT/HCPCS: 57240; 57288; 85049; 87081; 94664; C1771; 36415

== ENCOUNTER → 2023-05-02 | Outpatient (CLI) | payer MEDICARE, OTHER ==
--- NOTE | 2023-05-02 17:26 | Diagnostic Imaging Report ---
CLINICAL HISTORY: Fall. Mid back pain. COMPARISON: 08/21/2022. TECHNIQUE: Three views of the thoracic spine. FINDINGS: There is no acute fracture or dislocation of the thoracic spine. There is left convexity curvature of the thoracolumbar spine. No focal osseous lesions are seen. The included lungs are clear. A left-sided port is noted. IMPRESSION: 1. No acute fracture or dislocation in the thoracic spine. Dictated by: Dictated on workstation # [id number]
--- NOTE | 2023-05-02 18:08 | Diagnostic Imaging Report ---
INDICATION: Right rib pain. FINDINGS: Three views of the right ribs do not show any displaced fractures. There is no effusion or pneumothorax. IMPRESSION: Negative right ribs. Dictated by: Dictated on workstation # [id number]
--- NOTE | 2023-05-02 18:17 | Diagnostic Imaging Report ---
INDICATION: Back pain. TECHNIQUE: Three views were obtained. FINDINGS: The alignment of the lumbar spine is normal. The vertebral body heights are well maintained. There is no spondylolysis or spondylolisthesis. There is multilevel degenerative disc disease. There is no fracture or traumatic subluxation. IMPRESSION: Diffuse lumbar spondylosis with multilevel degenerative disc disease and lower lumbar hypertrophic degenerative facet disease. Dictated by: Dictated on workstation # [id number]
== END ==
LOC: RAD 14:47
PROVIDERS: ATTEND Nurse Practitioner Family
DX: M47.816 Spondylosis without myelopathy or radiculopathy, lumbar region (principal); M51.36 Other intervertebral disc degeneration, lumbar region; R07.81 Pleurodynia
CPT/HCPCS: 71100; 72072; 72100

== ENCOUNTER 2023-08-07 17:51 | Emergency (ER) | payer MEDICARE, OTHER ==
[~2023-08-07] VITALS: Ht 170 cm; Wt 72.5 kg
[~2023-08-07 17:51] MED LIST changes: +ESTR0.5T2 PO; -ROPI1TAB PO; +ROPI1TAB46 PO
--- NOTE | 2023-08-07 18:27 | ED General ---
General Stated Complaint: CONCUSSION Source of Information: Patient Exam Limitations: No Limitations History of Present Illness Date Seen by Provider: Aug 07, 2023 Time Seen by Provider: 18:13 Initial Comments 73-year-old female presents to the emergency department today for headache. She was seen at [facility] on after she had a fall on Tuesday striking her head on the floor. She reportedly had a CT scan there that was negative and was told she had a concussion. She is continue to have a headache. Pain is described as dull throbbing in her frontal head with significant neck stiffness that is pulling on the back of her skull and causing a headache in this area as well. She denies any vision changes, upper or lower extremity weakness numbness or tingling. She has been using hydrocodone as well as additional Tylenol without much relief. All other systems reviewed and negative except documented per HPI. Voice recognition software was used to help create this chart Allergies and Home Medications Allergies Coded Allergies: No Known Drug Allergies (Unverified , 09/03/19) Patient Home Medication List Home Medication List Reviewed: Yes Amlodipine Besylate (Norvasc) 5 Mg Tablet, 5 MG PO DAILY, (Reported) Entered as Reported by: REGLA CAMACHO on 11/01/16 1310 Butalb/Acetaminophen/Caffeine (Hjrnsq-Nwgswxet-Elmb 50-300-40) 50 Mg-300 Mg-40 Mg Capsule, 1 EACH PO TID Prescribed by: CRISTY LYNN MD on 08/07/231926 Cholecalciferol (Vitamin D3) (Vitamin D-3) 2,000 Unit Capsule, 2,000 UNIT PO HS, (Reported) Entered as Reported by: REGLA CAMACHO on 11/01/16 1320 Cyanocobalamin (Vitamin B-12) (Vitamin B12) 2,500 Mcg Tablet, 2,500 MCG PO DAILY, (Reported) Entered as Reported by: MARITZA JAIN on 09/03/19 1025 Cyclobenzaprine HCl (Cyclobenzaprine HCl) 10 Mg Tablet, 10 MG PO PRN, (Reported) Entered as Reported by: MARITZA JAIN on 09/03/19 1025 Ezetimibe (Ezetimibe) 10 Mg Tablet, 10 MG PO DAILY, (Reported) Entered as Reported by: MILADYS PRINCE on 10/30/18 1504 Fluticasone Propionate (Flonase Allergy Relief) 9.9 Ml [place].susp, 1 SPRAY NSEACH BID, (Reported) Entered as Reported by: MILADYS PRINCE on 10/30/18 1501 Folic Acid (Folic Acid) 1 Mg Tablet, 1 MG PO DAILY, (Reported) Entered as Reported by: MARITZA JAIN on 09/03/19 1025 Gabapentin (Gabapentin) 100 Mg Capsule, 2 CAP PO DAILY, (Reported) Entered as Reported by: MILADYS PRINCE on 10/30/18 1501 Gabapentin (Gabapentin) 100 Mg Capsule, 4 CAP PO HS, (Reported) Entered as Reported by: MILADYS PRINCE on 10/30/18 1518 Hydrocodone Bit/Acetaminophen (HYDROcodone/APAP 10/325 TABLET) 1 Each Tablet, 1 TAB PO Q4H PRN for MODERATE PAIN, (Reported) Entered as Reported by: REGLA CAMACHO on 11/01/16 1326 Linaclotide (Linzess) 72 Mcg Capsule, 72 MCG PO DAILY, (Reported) Entered as Reported by: MILADYS PRINCE on 10/30/18 1501 Methotrexate Tablet (Methotrexate Tablet) 2.5 Mg Tablet, 15 MG PO We, (Reported) Entered as Reported by: REGLA CAMACHO on 11/01/16 1320 Ropinirole HCl (Ropinirole HCl) 1 Mg Tablet, 1 MG PO HS, (Reported) Entered as Reported by: MARITZA JAIN on 09/03/19 1025 Tamsulosin HCl (Flomax) 0.4 Mg Cap, 0.4 MG PO DAILY Prescribed by: MILADYS PRINCE on 09/04/19 1141 Tramadol HCl (Tramadol HCl) 50 Mg Tablet, 1-2 TAB PO Q4H Prescribed by: MILADYS PRINCE on 09/04/19 1141 Trazodone HCl (Trazodone HCl) 50 Mg Tablet, 300 MG PO HS, (Reported) Entered as Reported by: MILADYS PRINCE on 10/30/18 1501 Valsartan (Valsartan) 160 Mg Tablet, 160 MG PO DAILY, (Reported) Entered as Reported by: MARITZA JAIN on 09/03/19 1025 Review of Systems Review of Systems Constitutional: see HPI Past Iiujcgk-Icqdvm-Vfgntt Hx Patient Social History Tobacco Use?: No Use of E-Cig and/or Vaping dev: No Substance use?: No Alcohol Use?: No Immunizations Up To Date Tetanus Booster (TDap): More than 5yrs PED Vaccines UTD: No First/Initial COVID19 Vaccinat: 2020 Second COVID19 Vaccination Huy: 2020 Third COVID19 Vaccination Date: 2021 Seasonal Allergies Seasonal Allergies: No Past Medical History Surgeries: Yes (MULTIPLE ORTHOPEDIC SURGERIES-HAS HAD OVER 40 SURGIES) Breast, Gallbladder, Hysterectomy, Joint Replacement, Orthopedic, Renal Respiratory: No Pneumonia Currently Using CPAP: No Currently Using BIPAP: No Cardiac: Yes High Cholesterol, Hypertension Neurological: No 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 Disorders: No 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, 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 Sexually Transmitted Disease: No HIV/AIDS: No Genitourinary: Yes (INCONTINIENCE) Kidney Stones, UTI-Chronic Gastrointestinal: Yes Diverticulosis Musculoskeletal: Yes (CHRONIC GENERALIZED PAIN AND JOINT PAIN ; CHRONIC NECK PAIN) Degenerate Disk Disease, Arthritis, Rheumatoid Arthritis, Chronic Back Pain Endocrine: No HEENT: No (CONTACTS) Loss of Vision: Denies Hearing Impairment: Denies Cancer: No Psychosocial: Yes Anxiety Integumentary: Yes (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, CELLULITIS 2019) Blood Disorders: No Adverse Reaction/Blood Tranf: No (HAS HAD BLOOD WITH NO REACTION) Family Medical History Alzheimer's disease G8 BROTHER G8 SISTER Arthritis G8 BROTHER Cataracts G8 SISTER Dementia G8 SISTER Fibrocystic disease of breast G8 SISTER Hypertension 19 FATHER 19 MOTHER G8 BROTHER G8 BROTHER G8 SISTER G8 SISTER Kidney disease G8 BROTHER No Family History of: AIDS Abdominal aortic aneurysm Heidrick's disease Alcoholism Aphasia Asthma Cancer of mouth Cardiovascular disease Colon cancer Completed stroke Congenital disease Congenital heart disease Coronary thrombosis Cystic fibrosis Diabetes mellitus Drug abuse Dysphasia Gastroenteritis Glaucoma Headache disorder Hypercholesterolemia Infertility Myocardial infarction Neoplasm Not obtainable due to adoption Osteoporosis Parkinson's disease Prostate cancer Psychosocial problem Respiratory disorder Seizure disorder Severe allergy Thyroid disease Tuberculosis Visual disorder Heart Disease, Other Conditions/Hx Physical Exam Vital Signs Vital Signs - First Documented 08/07/23 18:11 Temp 36.3 Pulse 74 Resp 20 B/P (MAP) 173/94 (120) Pulse Ox 95 O2 Delivery Room Air Capillary Refill : Height, Weight, BMI Height: 5'7.00" Weight: 153lbs. 0.0oz. 69.062516cg; 24.22 BMI Method:Stated General Appearance: No Apparent Distress, WD/WN Eyes: Bilateral Eye Normal Inspection, Bilateral Eye PERRL, Bilateral Eye EOMI HEENT: PERRL/EOMI, TMs Normal, Normal ENT Inspection, Pharynx Normal Neck: Full Range of Motion, Normal Inspection, Non Tender, Supple Respiratory: Chest Non Tender, Lungs Clear, Normal Breath Sounds, No Accessory Muscle Use, No Respiratory Distress Cardiovascular: Regular Rate, Rhythm, No Murmur, Normal Peripheral Pulses Gastrointestinal: Normal Bowel Sounds, No Organomegaly, Non Tender, Soft Back: Normal Inspection, No Vertebral Tenderness Extremity: Normal Capillary Refill, Normal Inspection Neurologic/Psychiatric: Alert, Oriented x3, No Motor/Sensory Deficits, Normal Mood/Affect Skin: Normal Color, Warm/Dry Procedures/Interventions Suture Size: 4-0 Progress/Results/Core Measures Suspected Sepsis SIRS Temperature: Pulse: Respiratory Rate: Blood Pressure / Mean: Results/Orders My Orders Orders - CRISTY LYNN DO Ketorolac Injection (Ketorolac Injection (08/07/23 18:30) Diphenhydramine Injection (Diphenhydram (08/07/23 18:30) Ct Head Wo (08/07/23 18:51) Medications Given in ED Current Medications Medications Dose Ordered Sig/Arcenio Route Start Time Stop Time Status Last Admin Dose Admin Diphenhydramine HCl 50 mg ONCE ONCE IM 08/07/23 18:30 08/07/23 18:31 DC 08/07/23 18:35 50 MG Ketorolac Tromethamine 15 mg ONCE ONCE IM 08/07/23 18:30 08/07/23 18:31 DC 08/07/23 18:35 15 MG Vital Signs/I&O 08/07/23 18:11 Temp 36.3 Pulse 74 Resp 20 B/P (MAP) 173/94 (120) Pulse Ox 95 O2 Delivery Room Air Capillary Refill : Departure Communication (Admissions) Patient is hemodynamically stable, neurologically intact. She has persistent headache after concussion, likely postconcussive syndrome. She continued to have 10/10 headache after provided Benadryl and Toradol. This I will go ahead and get a CT scan to ensure no missed bleeding or other acute intracranial abnormality. Impression Primary Impression: Post concussive syndrome Disposition: HOME, SELF-CARE Condition: Stable Departure-Patient Inst. Referrals: JD SCOTT (PCP/Family) Primary Care Physician Patient Instructions: Post-Concussion Syndrome ED Add. Discharge Instructions: You are seen in the emergency department today for headache after concussion. Your repeat head CT is again negative. You likely have postconcussive syndrome. Please stop taking other Tylenol containing products and take Fioricet as needed for these headaches. I recommend you add Benadryl, 50 mg every 6 hours as well. Return to the emergency department for any severe concerns. It is really on clear how long your symptoms will last as it can last several weeks however most cases resolve within 2 to 3 days. Follow-up with your primary doctor for any nonemergent needs or return to the emergency department for any severe concerns. Scripts Butalb/Acetaminophen/Caffeine (Djlqvd-Rxaicrip-Yfer 50-300-40) 50 Mg-300 Mg-40 Mg Capsule 1 EACH PO TID for Pain for 3 Days, #9 CAP Prov: CRISTY LYNN DO 08/07/23 CRISTY LYNN DO Aug 07, 2023 18:26
[2023-08-07] MEDS ORDERED: diphenhydrAMINE INJ 50 MG/ML VIAL IM ONE (18:30)
[2023-08-07] MEDS ORDERED: KETOROLAC INJ 15 MG/ML VIAL IM ONE (18:30)
[2023-08-07] MEDS ORDERED: BUTA1CAP41 PO (19:27)
--- NOTE | 2023-08-07 19:28 | Diagnostic Imaging Report ---
PROCEDURE: CT head without contrast. TECHNIQUE: Multiple contiguous axial images were obtained through the brain without the use of intravenous contrast. Auto Exposure Controls were utilized during the CT exam to meet ALARA standards for radiation dose reduction. INDICATION: 73-year-old female injured in fall diagnosed with a concussion, complains of a headache. COMPARISON: 04/22/2019. FINDINGS: The midline structures are not displaced. Lateral, 3rd and 4th ventricles are normal in size, shape and anatomic position. There is no mass, mass effect, hydrocephalus or hemorrhage. Jeffery-white differentiation is normal. There is no sulcal effacement. Background chronic areas of microvascular change are age-appropriate. There is no abnormal extra-axial fluid collection or hemorrhage. Basilar cisterns appear normal. There is calcific atherosclerosis within the carotid siphons and visualized vertebral arteries. Sinuses, orbits and mastoid air cells are normal. Bone windows show no calvarial change. IMPRESSION: Unremarkable nonenhanced CT brain. There are age-appropriate senescent changes and mild background chronic areas of microvascular ischemic change. If symptoms warrant or persist, an MRI is recommended. Noted is extensive calcific atherosclerosis within the carotid siphons and visualized vertebral arteries. Dictated by: Dictated on workstation # [id number]
[2023-08-07 19:40] VITALS: BP 179/85
== END 2023-08-07 19:41 | disposition home or self-care (01) ==
LOC: EDUNIT# 17:51 → ER 17:52
DX: F07.81 Postconcussional syndrome (principal)
CPT/HCPCS: 70450; 96372